=== PATIENT | male | born 1940 | race Two or more races ===

== ENCOUNTER 2023-06-14 08:57 | Outpatient (AMB) | payer MEDICARE, SELFPAY ==
--- NOTE | 2023-06-14 09:08 | MHC.OFFVISCO ---
Intake Vital Signs 06/14/23 12:08 BP 124/52 L Blood Pressure Location Lt brachial Position Sitting Pulse 72 Pulse Source Auscultation Intake Visit Reasons: Anticoagulation Allergies isosorbide Allergy (Unknown, Verified 01/19/20 00:00) dizziness No Known Allergies [No Known Allergies*] Allergy (Unverified 06/06/20 15:25) Medication List - Last Reconciled 06/14/23 by Aster Gates RN atorvastatin 40 mg PO DAILY carvedilol 12.5 mg PO BID 90 days glipizide 10 mg PO BID metformin 1,000 mg PO BID 90 days Nursing Note NEW PT: A+O X 3, VERY FRIENDLY, APPEARS MUCH YOUNGER THAN HIS AGE, HE IS VERY ACTIVE WORKS OUT SIDE AND EXERCISES, HX OF DIABETES SINCE AGE 50 - HIS ENTIRE FAMILY HAS DIABETES, HE DOES NOT WATCH HIS DIET WHICH UPSETS HIS DAUGHTER WHO IS MAKEUP ARTISTRY INSTRUCTOR OF SOME SORT, RESP EASY UNLABORED, HR REGULAR 72 B/P 124/52 hx of being on warfarin 4 years ago for his hx of DE x 4,cabg, and Afib, he has been on Eliquis but stop due to cost, he started warfarin with bridge with Eliquis Wednesday and Wednesday, stopped Eliquis Wednesday. INR: 1.5 out of therapeutic range Medications and supplements reviewed- he does not take any supplements or any pain medications Denies any signs and symptoms of bleeding or bruising or clotting. Bleeding, bruising, clotting discussed He DOES NOT LIKE TO COOK AND DOES NOT ANY ANY FRUITS OR VEGETABLES EXCEPT: PLANTAINS, GREEN BANANAS, WHITE POTATES, WHITE RICE, BREAD, OATMEAL WITH CINNAMON,BEANS OF ALL KINDS, VERY LITTLE MEAT, CORN, OCC HOT CHOCOLATE, 1 SUGAR FREE SODA PER DAY, Nutritional guidance given - CONT USUAL DIET Dose: 5MG X 6 DAYS/ 2.5MG X 1 DAY F/U INR: 06/18/23 Patient verbalizes understanding of instructions given WILL NOTIFY CARDIOLOGY WITH RESULT AND PLAN OF CARE Anti-Coag Initial Assessment Social Hx Patient Tobacco Use Status: Never used Tobacco alcohol intake: former Alcohol intake frequency: does not drink Housing: House Housing Other:: [employer] HELPS HIM - MARK current occupation: RETIRED 20 YEARS current occupational exposures/hazards: No Fall risk assessment: No Falls in past year Cardiovascular Hx: HTN, Angina (NON CURRENT BUT DID WITH 4 HEART ATTACKS ), [place] (51 YEARS OLD, SEVERAL HEART ATTACKS, ), Arrhythmias (AFIB STARTED WARFARIN 4 YEARS AGO, WAS ON ELIQUIS BUT STOP DUE TO COST ), Cardiomyopathy and Other (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 Illness/Depression: Yes Surgeries: WAS TREATED IN THE PAST FOR DEPRESSION STATES HE HAD A HARD LIFE BUT HE IS GOOD NOW l HAVE A GOOD LIFE Anti-Coag. Education Record Teaching Recipient: Patient Readiness To Learn: Excellent Teaching Methods: Discussion and Handout Education Intervention/Brief Description of Teaching 1. Able to state reason for taking Warfarin: Yes 2. Able to state Pain Management techniques: Yes 3. Able to state action of Warfarin.: Yes Able to state current dose, pill color, how and when Warfarin to be taken: Yes 4. Able to identify need to keep diet consistent in regard to vitamin K intake: Yes Able to state restriction on alcohol: Yes 5. Able to state need for compliance with PT/INR testing: Yes Describes rationale for carrying ID and wearing Medic Alert bracelet: Yes Patient instructed to monitor for excess bruising or signs/symptoms of clotting or bleeding: Yes 6. Able to state that there are drugs that interact with Warfin: Yes 7. Able to state the need to seek medical attention when illness/injury occur.: Yes Describes the need to avoid activities with high risk of injury: Yes 8. Able to state duration of treatment: Yes 9. Demonstrates understanding of notifying all providers of pending dental surgical, or other invasive procedures: Yes 10. Able to state Home Care instructions Additional comments: pt was on warfarin about 4 years ago then switched to Eliquis, he switched back to warfarin due to cost, he is alert and oriented and fully independent, does not cook much, mostly white rice, potates, plantines, green bananas, oatmeal with cinnamon, bread, very little meat, all kinds of beans, does not like to cook, will no change his habits, daughter is a cafeteria attendant and he will not follow her dietary suggestins. Questionnaires HAS-BLED Does the patient had uncontrolled Hypertension?: No Does the patient have renal disease?: Yes Does the patient have liver disease?: No Does the patient have a history of stroke?: No Has the patient had major bleeding or predisposition to bleeding?: No Does the patient have labile INRs?: Yes Is the patient over 65 years of age?: Yes Is the patient on medications that gives them a predisposition to bleeding?: Yes Does the patient use alcohol?: No HAS-BLED Score: 4 CHADSVASC Age: 75 or over Gender: Male Does the patient have a history of CHF?: No Does the patient have a history of Hypertension?: Yes Does the patient have a history of Stroke/TIA/Thromboembolism?: No Does the patient have a history of Vascular Disease (prior DE, PAD or aortic plaque)?: Yes (MIX4 , CABGM, AFIB ) Does the patient have a history of Diabetes?: Yes CHADS VACS Score: 5 Marci Prediction Score Rsk VTE Active Cancer: No Previous VTE, excluding superficial vein thrombosis: No Reduced mobility: No Already known Thrombophilic Condition: Yes With-in last month Trauma and/or Surgery: No Elderly 70 year or older: Yes Heart and/or Respiratory Failure: Yes Acute Myocardial infarction and/or Ischemic Stroke: Yes (DE X 4 ) Acute Infection and/or Rheumatologic Disorder: No Obesity (BMI 30 or greater): No Ongoing Hormonal Treatment: No Score: 6 Marci Score less than 4; Low Risk of VTE Marci Score 4 or greater; High Risk of VTE Coding Level of Care Code New Patient Level 2 Diagnoses Current use of anticoagulant therapy Z79.01 Time Spent (min) 70 Comment NEW PT Assessment & Plan Assessment & Plan (1) Current use of anticoagulant therapy: Code(s): 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
[2023-06-14 09:14] LABS: Prothrombin Time Whole Bld POC 18.4 sec (11.1-13.5); ~PT, ~INR - Anti Coag Clinic 1.5 (0.9-1.1)
[2023-06-14 12:08] VITALS: BP 124/52; PULSE 72
== END 2023-06-14 12:24 | disposition home or self-care (01) ==
LOC: HO.ACS 08:57
PROVIDERS: PCP Internal Medicine; Visit Provider Internal Medicine
DX: Z79.01 Long term (current) use of anticoagulants (principal)

== ENCOUNTER → 2023-06-14 08:57 | Outpatient (BNVA) | payer MEDICARE, SELFPAY | PROVIDERS: PCP Internal Medicine; Visit Provider Internal Medicine | DX: I48.0 Paroxysmal atrial fibrillation (principal); Z79.01 Long term (current) use of anticoagulants; Z51.81 Encounter for therapeutic drug level monitoring | CPT/HCPCS: 85610; 99202 ==

== ENCOUNTER 2023-06-18 09:18 | Outpatient (AMB) | payer MEDICARE, SELFPAY ==
[2023-06-18 09:44] LABS: Prothrombin Time Whole Bld POC 25.4 sec (11.1-13.5); ~PT, ~INR - Anti Coag Clinic 2.1 (0.9-1.1)
--- NOTE | 2023-06-18 09:50 | MHC.OFFVISCO ---
Intake Intake Visit Reasons: Anticoagulation Allergies isosorbide Allergy (Unknown, Verified 06/18/23 09:37) dizziness Medication List - Last Reconciled 06/18/23 by Sherie Khan RN aspirin (Adult Aspirin Regimen) 81 mg PO DAILY atorvastatin 40 mg PO DAILY carvedilol 12.5 mg PO BID 90 days glipizide 10 mg PO BID lisinopril 10 mg PO DAILY metformin 1,000 mg PO BID 90 days warfarin See Protocol 5 mg orally OR PER INR; Nursing Note Amb to ACS for ACS visit #2, feeling well Medications and supplements reviewed, sts I only take what my Dr tells me No changes in health, diet, medications, or supplements, off Eloquis since Wednesday Denies any unusual signs and symptoms of bruising, bleeding Denies any new Chest pain, SOB, or clotting INR: 2.1 now low in therapeutic range Nutritional guidance given: continue usual diet, sts he had some corn and beets last night and some avacado, sts he occassionally will cook chicken or a pork chop but mostly simple diet, I don't really know how to cook encouraged consistency in diet Dose: continue usual dosing;will take 5mg daily, is taking warfarin in the am at 8:30 in the morning encouraged to not take his warfarin Wednesday morning and can take after we check INR (for possible 2.5mg dose vs 5mg) F/U INR: Wednesday June 21, 930 Patient verbalizes understanding of instructions given with accurate read back/ teach back of dosing Anti-Coag Initial Assessment Social Hx Patient Tobacco Use Status: Never used Tobacco alcohol intake: former Alcohol intake frequency: does not drink Cardiovascular Hx: HTN, Angina (NON CURRENT BUT DID WITH 4 HEART ATTACKS ), [place] (51 YEARS OLD, SEVERAL HEART ATTACKS, ), Arrhythmias (AFIB STARTED WARFARIN 4 YEARS AGO, WAS ON ELIQUIS BUT STOP DUE TO COST ), Cardiomyopathy and Other (DEFRIBRILLATOR PACEMAKER [address] 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 Illness/Depression: Yes Coding Level of Care Code Est Patient Level 1 Diagnoses Current use of anticoagulant therapy Z79.01 Time Spent (min) 15 Assessment & Plan Assessment & Plan (1) Current use of anticoagulant therapy: Code(s): Z79.01 - intermediate (current) use of anticoagulants Category: Medical
== END 2023-06-18 10:04 | disposition home or self-care (01) ==
PROVIDERS: PCP Internal Medicine; Visit Provider Internal Medicine
DX: Z79.01 Long term (current) use of anticoagulants (principal)

== ENCOUNTER → 2023-06-18 09:18 | Outpatient (BNVA) | payer MEDICARE, SELFPAY | PROVIDERS: PCP Internal Medicine; Visit Provider Internal Medicine | DX: I48.0 Paroxysmal atrial fibrillation (principal); Z79.01 Long term (current) use of anticoagulants; Z51.81 Encounter for therapeutic drug level monitoring | CPT/HCPCS: 85610; 99211 ==

== ENCOUNTER 2023-06-21 09:27 | Outpatient (AMB) | payer MEDICARE, SELFPAY ==
--- NOTE | 2023-06-21 09:34 | MHC.OFFVISCO ---
Intake Intake Visit Reasons: Anticoagulation Allergies isosorbide Allergy (Unknown, Verified 06/21/23 09:29) dizziness Medication List - Last Reconciled 06/21/23 by Sonya Tobar RN aspirin (Adult Aspirin Regimen) 81 mg PO DAILY atorvastatin 40 mg PO DAILY carvedilol 12.5 mg PO BID 90 days glipizide 10 mg PO BID lisinopril 10 mg PO DAILY metformin 1,000 mg PO BID 90 days warfarin See Protocol 5 mg orally OR PER INR; Nursing Note INR: 2.4- in therapeutic range Medications and supplements reviewed- no changes No changes in health, diet, medications, or supplements, Denies any signs and symptoms of bleeding or bruising or clotting. Bleeding, bruising, clotting discussed Nutritional guidance given - balance- Dose: 5mg x 6, 2.5mg x 1 F/U INR: 4 days Patient verbalizes understanding of instructions given j pt takes warfarin in the am and has been instructed to not take prior to acs appt Anti-Coag Initial Assessment Social Hx Patient Tobacco Use Status: Never used Tobacco alcohol intake: former Alcohol intake frequency: does not drink Cardiovascular Hx: HTN, Angina (NON CURRENT BUT DID WITH 4 HEART ATTACKS ), [place] (51 YEARS OLD, SEVERAL HEART ATTACKS, ), Arrhythmias (AFIB STARTED WARFARIN 4 YEARS AGO, WAS ON ELIQUIS BUT STOP DUE TO COST ), Cardiomyopathy and Other (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
[2023-06-21 09:35] LABS: Prothrombin Time Whole Bld POC 28.4 sec (11.1-13.5); ~PT, ~INR - Anti Coag Clinic 2.4 (0.9-1.1)
== END 2023-06-21 09:42 | disposition home or self-care (01) ==
LOC: HO.ACS 09:27
PROVIDERS: PCP Internal Medicine; Visit Provider Internal Medicine
DX: Z79.01 Long term (current) use of anticoagulants (principal)

== ENCOUNTER → 2023-06-21 09:27 | Outpatient (BNVA) | payer MEDICARE, SELFPAY | PROVIDERS: PCP Internal Medicine; Visit Provider Internal Medicine | DX: I48.0 Paroxysmal atrial fibrillation (principal); Z51.81 Encounter for therapeutic drug level monitoring; Z79.01 Long term (current) use of anticoagulants | CPT/HCPCS: 85610; 99211 ==

== ENCOUNTER 2023-06-25 09:31 | Outpatient (AMB) | payer MEDICARE, SELFPAY ==
--- NOTE | 2023-06-25 10:06 | MHC.OFFVISCO ---
Intake Intake Visit Reasons: Anticoagulation Allergies isosorbide Allergy (Unknown, Verified 06/25/23 09:56) dizziness Medication List - Last Reconciled 06/25/23 by Sherie Khan RN aspirin (Adult Aspirin Regimen) 81 mg PO DAILY atorvastatin 40 mg PO DAILY carvedilol 12.5 mg PO BID 90 days glipizide 10 mg PO BID lisinopril 10 mg PO DAILY metformin 1,000 mg PO BID 90 days warfarin See Protocol 5 mg orally OR PER INR; Nursing Note Amb to ACS feeling well, visit #4 Medications and supplements reviewed No changes in health, diet, medications, or supplements Denies any unusual signs and symptoms of bruising, bleeding Denies any new Chest pain, SOB, or clotting INR: 2.1 low in therapeutic range Nutritional guidance given: balance greens and reds in diet Dose: continue dosing;2.5mg on Wednesday and 5mg all other days F/U INR: 6 days Patient verbalizes understanding of instructions given with accurate read back/ teach back of dosing Anti-Coag Initial Assessment Social Hx Patient Tobacco Use Status: Never used Tobacco alcohol intake: former Alcohol intake frequency: does not drink Cardiovascular Hx: HTN, Angina (NON CURRENT BUT DID WITH 4 HEART ATTACKS ), [place] (51 YEARS OLD, SEVERAL HEART ATTACKS, ), Arrhythmias (AFIB STARTED WARFARIN 4 YEARS AGO, WAS ON ELIQUIS BUT STOP DUE TO COST ), Cardiomyopathy and Other (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
== END 2023-06-25 10:09 | disposition home or self-care (01) ==
LOC: HO.ACS 09:31
PROVIDERS: PCP Internal Medicine; Visit Provider Internal Medicine
DX: Z79.01 Long term (current) use of anticoagulants (principal)

== ENCOUNTER → 2023-06-25 09:31 | Outpatient (BNVA) | payer MEDICARE, SELFPAY | PROVIDERS: PCP Internal Medicine; Visit Provider Internal Medicine | DX: I48.0 Paroxysmal atrial fibrillation (principal); Z79.01 Long term (current) use of anticoagulants; Z51.81 Encounter for therapeutic drug level monitoring | CPT/HCPCS: 85610; 99211 ==

== ENCOUNTER 2023-07-01 09:32 | Outpatient (AMB) | payer MEDICARE, SELFPAY ==
--- NOTE | 2023-07-01 10:01 | MHC.OFFVISCO ---
Intake Intake Visit Reasons: Anticoagulation Allergies isosorbide Allergy (Unknown, Verified 07/01/23 09:46) dizziness Medication List - Last Reconciled 07/01/23 by Aster Gates RN aspirin (Adult Aspirin Regimen) 81 mg PO DAILY atorvastatin 40 mg PO DAILY carvedilol 12.5 mg PO BID 90 days glipizide 10 mg PO BID lisinopril 10 mg PO DAILY metformin 1,000 mg PO BID 90 days warfarin See Protocol 5 mg orally OR PER INR; Nursing Note INR: 2.1 in therapeutic range Medications and supplements reviewed pt states he feels good, walks 4 miles daily, does not chk his blood sugar, eats a diet from [place] , does not know how to cook, eats a lot of starch but is very active, states daughter a investigations consultant, he was advised to chk his blood sugars, he states when his blood sugar is 100 he does not feel good, he feels better at 150 Denies any signs and symptoms of bleeding or bruising or clotting. Bleeding, bruising, clotting discussed Nutritional guidance given cotn same diet and usual exercise Dose: keep same for now 2.5mg x 1 day/ 5mg x 6 days F/U INR: 1 week if therapeutic next wee go 2 weeks Patient verbalizes understanding of instructions given Anti-Coag Initial Assessment Social Hx Patient Tobacco Use Status: Never used Tobacco alcohol intake: former Alcohol intake frequency: does not drink Cardiovascular Hx: HTN, Angina (NON CURRENT BUT DID WITH 4 HEART ATTACKS ), [place] (51 YEARS OLD, SEVERAL HEART ATTACKS, ), Arrhythmias (AFIB STARTED WARFARIN 4 YEARS AGO, WAS ON ELIQUIS BUT STOP DUE TO COST ), Cardiomyopathy and Other (DEFRIBRILLATOR PACEMAKER [address] 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
[2023-07-01 10:19] LABS: Prothrombin Time Whole Bld POC 25.1 sec (11.1-13.5); ~PT, ~INR - Anti Coag Clinic 2.1 (0.9-1.1)
== END 2023-07-01 10:06 | disposition home or self-care (01) ==
LOC: HO.ACS 09:32
PROVIDERS: PCP Internal Medicine; Visit Provider Internal Medicine
DX: Z79.01 Long term (current) use of anticoagulants (principal)

== ENCOUNTER → 2023-07-01 09:32 | Outpatient (BNVA) | payer MEDICARE, SELFPAY | PROVIDERS: PCP Internal Medicine; Visit Provider Internal Medicine | DX: I48.0 Paroxysmal atrial fibrillation (principal); Z79.01 Long term (current) use of anticoagulants; Z51.81 Encounter for therapeutic drug level monitoring | CPT/HCPCS: 85610; 99211 ==

== ENCOUNTER 2023-07-08 09:24 | Outpatient (AMB) | payer MEDICARE, SELFPAY ==
[2023-07-08 09:32] LABS: Prothrombin Time Whole Bld POC 17.9 sec (11.1-13.5); ~PT, ~INR - Anti Coag Clinic 1.5 (0.9-1.1)
--- NOTE | 2023-07-08 09:51 | MHC.OFFVISCO ---
Intake Intake Visit Reasons: Anticoagulation Allergies isosorbide Allergy (Unknown, Verified 07/08/23 09:27) dizziness Medication List - Last Reconciled 07/08/23 by Aster Gates RN aspirin (Adult Aspirin Regimen) 81 mg PO DAILY atorvastatin 40 mg PO DAILY carvedilol 12.5 mg PO BID 90 days glipizide 10 mg PO BID lisinopril 10 mg PO DAILY metformin 1,000 mg PO BID warfarin See Protocol 5 mg orally OR PER INR; Nursing Note INR ?1.5? out of therapeutic range Medications and supplements reviewed Patient status: states he is eating more food because its cold out, and had more hot chocolate ( increasing foods increases vit k ) that was explained to him, to keep eating and his dose willbe andjusted to his diet Medications or supplements: no changes Diet: good - follows a spaish type diet does not cook much, family brings food occ, Denies any signs and symptoms of bleeding or clotting or unusual bruising Bleeding, bruising, clotting discussed Nutritional guidance given: no chocolate or greens x 3 days Dose: increase dose 7.5mg today then 5mg daily F/U INR Date: 5 days 07/13/23 to go to ER for any c/o or stroke like symptoms Patient verbalizing understanding of instructions given. t/c to Cardiology regarding pt status INR and plan of care spoke with nurse Dunaway to convey msg to Cardiology Anti-Coag Initial Assessment Social Hx Patient Tobacco Use Status: Never used Tobacco alcohol intake: former Alcohol intake frequency: does not drink Cardiovascular Hx: HTN, Angina (NON CURRENT BUT DID WITH 4 HEART ATTACKS ), [place] (51 YEARS OLD, SEVERAL HEART ATTACKS, ), Arrhythmias (AFIB STARTED WARFARIN 4 YEARS AGO, WAS ON ELIQUIS BUT STOP DUE TO COST ), Cardiomyopathy and Other (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
== END 2023-07-08 10:10 | disposition home or self-care (01) ==
LOC: HO.ACS 09:24
PROVIDERS: PCP Internal Medicine; Visit Provider Internal Medicine
DX: Z79.01 Long term (current) use of anticoagulants (principal)

== ENCOUNTER → 2023-07-08 09:24 | Outpatient (BNVA) | payer MEDICARE, SELFPAY | PROVIDERS: PCP Internal Medicine; Visit Provider Internal Medicine | DX: I48.0 Paroxysmal atrial fibrillation (principal); Z79.01 Long term (current) use of anticoagulants; Z51.81 Encounter for therapeutic drug level monitoring | CPT/HCPCS: 85610; 99211 ==

== ENCOUNTER 2023-07-13 08:45 | Outpatient (AMB) | payer MEDICARE, SELFPAY ==
--- NOTE | 2023-07-13 08:56 | MHC.OFFVISCO ---
Intake Intake Visit Reasons: Anticoagulation Allergies isosorbide Allergy (Unknown, Verified 07/13/23 08:53) dizziness Medication List - Last Reconciled 07/13/23 by Sonya Tobar RN aspirin (Adult Aspirin Regimen) 81 mg PO DAILY atorvastatin 40 mg PO DAILY carvedilol 12.5 mg PO BID 90 days glipizide 10 mg PO BID lisinopril 10 mg PO DAILY metformin 1,000 mg PO BID warfarin See Protocol 5 mg orally OR PER INR; Nursing Note INR 1.8- out of therapeutic range Medications and supplements reviewed Patient status: no c.o offered Medications or supplements: no changes Diet: same Denies any signs and symptoms of bleeding or clotting or unusual bruising Bleeding, bruising, clotting discussed Nutritional guidance given: no greens for 2-3 days, eat reds to raise Dose: 7.5mg today increase weekly dosing- 5mg x 6, 7.5mg x 1 F/U INR Date : 1 week? Patient verbalizing understanding of instructions given. Anti-Coag Initial Assessment Social Hx Patient Tobacco Use Status: Never used Tobacco alcohol intake: former Alcohol intake frequency: does not drink Cardiovascular Hx: HTN, Angina (NON CURRENT BUT DID WITH 4 HEART ATTACKS ), [place] (51 YEARS OLD, SEVERAL HEART ATTACKS, ), Arrhythmias (AFIB STARTED WARFARIN 4 YEARS AGO, WAS ON ELIQUIS BUT STOP DUE TO COST ), Cardiomyopathy and Other (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 Illness/Depression: Yes Coding Level of Care Code Est Patient Level 1 Diagnoses Current use of anticoagulant therapy Z79.01 Assessment & Plan Assessment & Plan (1) Current use of anticoagulant therapy: Code(s): Z79.01 - FPC (current) use of anticoagulants Category: Medical
[2023-07-13 08:58] LABS: Prothrombin Time Whole Bld POC 21.4 sec (11.1-13.5); ~PT, ~INR - Anti Coag Clinic 1.8 (0.9-1.1)
== END 2023-07-13 09:05 | disposition home or self-care (01) ==
LOC: HO.ACS 08:45
PROVIDERS: PCP Internal Medicine; Visit Provider Internal Medicine
DX: Z79.01 Long term (current) use of anticoagulants (principal)

== ENCOUNTER → 2023-07-13 08:45 | Outpatient (BNVA) | payer MEDICARE, SELFPAY | PROVIDERS: PCP Internal Medicine; Visit Provider Internal Medicine | DX: I48.0 Paroxysmal atrial fibrillation (principal); Z79.01 Long term (current) use of anticoagulants; Z51.81 Encounter for therapeutic drug level monitoring | CPT/HCPCS: 85610; 99211 ==

== ENCOUNTER 2023-07-19 08:57 | Outpatient (AMB) | payer MEDICARE, SELFPAY ==
[2023-07-19 09:02] LABS: Prothrombin Time Whole Bld POC 22.6 sec (11.1-13.5); ~PT, ~INR - Anti Coag Clinic 1.9 (0.9-1.1)
--- NOTE | 2023-07-19 09:08 | MHC.OFFVISCO ---
Intake Intake Visit Reasons: Anticoagulation Allergies isosorbide Allergy (Unknown, Verified 07/19/23 08:58) dizziness Medication List - Last Reconciled 07/19/23 by Aster Gates RN aspirin (Adult Aspirin Regimen) 81 mg PO DAILY atorvastatin 40 mg PO DAILY carvedilol 12.5 mg PO BID 90 days glipizide 10 mg PO BID lisinopril 10 mg PO DAILY metformin 1,000 mg PO BID warfarin See Protocol 5 mg orally OR PER INR; Nursing Note INR: 1.9 in therapeutic range- HAS NOT TAKEN TODAY'S DOSE SUDHA Medications and supplements reviewed No changes in health, diet, medications, or supplements, Denies any signs and symptoms of bleeding or bruising or clotting. Bleeding, bruising, clotting discussed Nutritional guidance given Dose: 7.5MG X 1 5MG X 6 DAYS F/U INR: 1 WEEK - IF LOW INCREASE 7.5MG X 2 DAYS Patient verbalizes understanding of instructions given Anti-Coag Initial Assessment Social Hx Patient Tobacco Use Status: Never used Tobacco alcohol intake: former Alcohol intake frequency: does not drink Cardiovascular Hx: HTN, Angina (NON CURRENT BUT DID WITH 4 HEART ATTACKS ), [place] (51 YEARS OLD, SEVERAL HEART ATTACKS, ), Arrhythmias (AFIB STARTED WARFARIN 4 YEARS AGO, WAS ON ELIQUIS BUT STOP DUE TO COST ), Cardiomyopathy and Other (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
== END 2023-07-19 09:14 | disposition home or self-care (01) ==
LOC: HO.ACS 08:57
PROVIDERS: PCP Internal Medicine; Visit Provider Internal Medicine
DX: Z79.01 Long term (current) use of anticoagulants (principal)

== ENCOUNTER → 2023-07-19 08:57 | Outpatient (BNVA) | payer MEDICARE, SELFPAY | PROVIDERS: PCP Internal Medicine; Visit Provider Internal Medicine | DX: I48.0 Paroxysmal atrial fibrillation (principal); Z79.01 Long term (current) use of anticoagulants; Z51.81 Encounter for therapeutic drug level monitoring | CPT/HCPCS: 85610; 99211 ==

== ENCOUNTER 2023-07-26 09:39 | Outpatient (AMB) | payer MEDICARE, SELFPAY ==
--- NOTE | 2023-07-26 10:04 | MHC.OFFVISCO ---
Intake Intake Visit Reasons: Anticoagulation Allergies isosorbide Allergy (Unknown, Verified 07/26/23 09:50) dizziness Medication List - Last Reconciled 07/26/23 by Aster Gates RN aspirin (Adult Aspirin Regimen) 81 mg PO DAILY atorvastatin 40 mg PO DAILY carvedilol 12.5 mg PO BID 90 days glipizide 10 mg PO BID lisinopril 10 mg PO DAILY metformin 1,000 mg PO BID warfarin See Protocol 5 mg orally OR PER INR; Nursing Note INR 1.6?? out of therapeutic range Medications and supplements reviewed Patient status: VERY ACTIVE OVER THE WEEKEND DOING YARD WORK AND HOUSE WORK Medications or supplements: NO CHANGES, IN THE BEGINNIG HE HAD BEEN ON ELIQUIS -PERHAPS THAT IS WHY HI INR WAS THERAPEUTIC IN THE BEGINNING SO QUICKLY THEN DROPPED Diet: GOOD NO CHANGES, EATS MORE DURING THE COLDER MONTHS Denies any signs and symptoms of bleeding or clotting or unusual bruising Bleeding, bruising, clotting discussed Nutritional guidance given: REVIEW FOOD LIST, NO GREENS TODAY ( DOESNT REALLY EAT THEM ANY WAY) Dose: INCREASE TO 7.5MG X 3 DAYS/ 5MG X 4 DAYS F/U INR Date : 07/30/23 THIS WEDNESDAY?? Patient verbalizing understanding of instructions given. Anti-Coag Initial Assessment Social Hx Patient Tobacco Use Status: Never used Tobacco alcohol intake: former Alcohol intake frequency: does not drink Cardiovascular Hx: HTN, Angina (NON CURRENT BUT DID WITH 4 HEART ATTACKS ), [place] (51 YEARS OLD, SEVERAL HEART ATTACKS, ), Arrhythmias (AFIB STARTED WARFARIN 4 YEARS AGO, WAS ON ELIQUIS BUT STOP DUE TO COST ), Cardiomyopathy and Other (DEFRIBRILLATOR PACEMAKER [address] 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
[2023-07-26 20:37] LABS: Prothrombin Time Whole Bld POC 19.7 sec (11.1-13.5); ~PT, ~INR - Anti Coag Clinic 1.6 (0.9-1.1)
== END 2023-07-26 10:09 | disposition home or self-care (01) ==
LOC: HO.ACS 09:39
PROVIDERS: PCP Internal Medicine; Visit Provider Internal Medicine
DX: Z79.01 Long term (current) use of anticoagulants (principal)

== ENCOUNTER → 2023-07-26 09:39 | Outpatient (BNVA) | payer MEDICARE, SELFPAY | PROVIDERS: PCP Internal Medicine; Visit Provider Internal Medicine | DX: I48.0 Paroxysmal atrial fibrillation (principal); Z79.01 Long term (current) use of anticoagulants; Z51.81 Encounter for therapeutic drug level monitoring | CPT/HCPCS: 85610; 99211 ==

== ENCOUNTER 2023-07-30 09:17 | Outpatient (AMB) | payer MEDICARE, SELFPAY ==
[2023-07-30 09:36] LABS: Prothrombin Time Whole Bld POC 23.8 sec (11.1-13.5)
--- NOTE | 2023-07-30 09:38 | MHC.OFFVISCO ---
Intake Intake Visit Reasons: Anticoagulation Allergies isosorbide Allergy (Unknown, Verified 07/30/23 09:25) dizziness Medication List - Last Reconciled 07/30/23 by Aster Gates RN aspirin (Adult Aspirin Regimen) 81 mg PO DAILY atorvastatin 40 mg PO DAILY carvedilol 12.5 mg PO BID 90 days glipizide 10 mg PO BID lisinopril 10 mg PO DAILY metformin 1,000 mg PO BID warfarin See Protocol 5 mg orally OR PER INR; Nursing Note INR: 2.0 in therapeutic range Medications and supplements reviewed No changes in health, diet, medications, or supplements, Denies any signs and symptoms of bleeding or bruising or clotting. Bleeding, bruising, clotting discussed Nutritional guidance given Dose: 7.5MG X 3 DAYS/ 5MG X 4 DAYS F/U INR: 1 WEEK Patient verbalizes understanding of instructions given Anti-Coag Initial Assessment Social Hx Patient Tobacco Use Status: Never used Tobacco alcohol intake: former Alcohol intake frequency: does not drink Cardiovascular Hx: HTN, Angina (NON CURRENT BUT DID WITH 4 HEART ATTACKS ), [place] (51 YEARS OLD, SEVERAL HEART ATTACKS, ), Arrhythmias (AFIB STARTED WARFARIN 4 YEARS AGO, WAS ON ELIQUIS BUT STOP DUE TO COST ), Cardiomyopathy and Other (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
== END 2023-07-30 09:41 | disposition home or self-care (01) ==
LOC: HO.ACS 09:17
PROVIDERS: PCP Internal Medicine; Visit Provider Internal Medicine
DX: Z79.01 Long term (current) use of anticoagulants (principal)

== ENCOUNTER → 2023-07-30 09:17 | Outpatient (BNVA) | payer MEDICARE, SELFPAY | PROVIDERS: PCP Internal Medicine; Visit Provider Internal Medicine | DX: I48.0 Paroxysmal atrial fibrillation (principal); Z79.01 Long term (current) use of anticoagulants; Z51.81 Encounter for therapeutic drug level monitoring | CPT/HCPCS: 85610; 99211 ==

== ENCOUNTER 2023-08-06 09:26 | Outpatient (AMB) | payer MEDICARE, SELFPAY ==
[2023-08-06 10:29] LABS: Prothrombin Time Whole Bld POC 27.8 sec (11.1-13.5); ~PT, ~INR - Anti Coag Clinic 2.3 (0.9-1.1)
--- NOTE | 2023-08-06 11:32 | MHC.OFFVISCO ---
Intake Intake Visit Reasons: Anticoagulation Allergies isosorbide Allergy (Unknown, Verified 08/06/23 10:14) dizziness Medication List - Last Reconciled 08/06/23 by Aster Gates RN aspirin (Adult Aspirin Regimen) 81 mg PO DAILY atorvastatin 40 mg PO DAILY carvedilol 12.5 mg PO BID 90 days glipizide 10 mg PO BID lisinopril 10 mg PO DAILY metformin 1,000 mg PO BID warfarin See Protocol 5 mg orally OR PER INR; Nursing Note INR: 2.3 in therapeutic range Medications and supplements reviewed pt stated last wednesday went for walk, usually walks 3 miles / day, he developed c/p with pressure and went home to bed, it has persisted since then pressure discomfort 5/10 and pain 8/10 pain scale intermittent midsternal c/p and pressure today pressure is staying with intermittent c/p pt states his heart does not feel right, HR 60 with occ pause and afib b/p 140/60 irregular pt brought to ER report given to triage Nurse Rosemary and assigned nurse for Bed 5 pt requested daughter to not be called at this time Bleeding, bruising, clotting discussed Nutritional guidance given Dose: keep same for now 7.5mg x 3 days/ 5mg x 4 days F/U INR: 10 days call with any med changes Patient verbalizes understanding of instructions given Anti-Coag Initial Assessment Social Hx Patient Tobacco Use Status: Never used Tobacco alcohol intake: former Alcohol intake frequency: does not drink Cardiovascular Hx: HTN, Angina (NON CURRENT BUT DID WITH 4 HEART ATTACKS ), [place] (51 YEARS OLD, SEVERAL HEART ATTACKS, ), Arrhythmias (AFIB STARTED WARFARIN 4 YEARS AGO, WAS ON ELIQUIS BUT STOP DUE TO COST ), Cardiomyopathy and Other (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 Illness/Depression: Yes Coding Level of Care Code Est Patient Level 1 Diagnoses Current use of anticoagulant therapy Z79.01 Results AMB INR Fingerstick AMB INR Fingerstick 2.3 Last Edit by Aster Gates RN on 08/06/23 09:39 MANUAL ENTRY Assessment & Plan Assessment & Plan (1) Current use of anticoagulant therapy: Code(s): Z79.01 - jail (current) use of anticoagulants Category: Medical
== END 2023-08-06 11:41 | disposition home or self-care (01) ==
LOC: HO.ACS 09:26
PROVIDERS: PCP Internal Medicine; Visit Provider Internal Medicine
DX: Z79.01 Long term (current) use of anticoagulants (principal)

== ENCOUNTER → 2023-08-06 09:26 | Outpatient (BNVA) | payer MEDICARE, SELFPAY | PROVIDERS: PCP Internal Medicine; Visit Provider Internal Medicine ==

== ENCOUNTER 2023-08-06 10:00 | Emergency (ER) | payer MEDICARE, SELFPAY ==
--- NOTE | ~2023-08-06 | XR_ITS ---
EXAMINATION: XR CHEST CLINICAL INFORMATION: Chest pain. COMPARISON: Most recent chest radiograph dated 10/09/2019. TECHNIQUE: Frontal view of the chest was obtained. FINDINGS: No focal airspace consolidation. No pleural effusion or pneumothorax. Sternal wires are redemonstrated. Right chest wall pacer/automated implantable cardioverter defibrillator in unchanged position. Stable cardiomediastinal silhouette. XR/XR chest 1V IMPRESSION: No acute cardiopulmonary findings.
[2023-08-06 10:08] VITALS: BP 156/83; PULSE 61; RESP 12; TEMP 36.6; O2SAT 99; BMI 23.9
--- NOTE | 2023-08-06 10:16 | ECG_ITS ---
Test Reason : CHEST PAIN Blood Pressure : / mmHG Vent. Rate : 060 BPM Atrial Rate : 060 BPM P-R Int : 000 ms QRS Dur : 100 ms QT Int : 448 ms P-R-T Axes : 000 009 178 degrees QTc Int : 448 ms Atrial-paced rhythm with occasional ventricular-paced complexes ST & T wave abnormality, consider lateral ischemia Abnormal ECG When compared with ECG of 09-OCT-2019 19:55, with occasional Ventricular-paced rhythm Referred By: Yuki Power Electronically Signed By:COLT MEDEL MD
[2023-08-06 10:36] LABS: MANUAL DIFF FLAG NO
[2023-08-06 10:38] LABS: Basophils Percent Auto 0.4 % (0-2); Eosinophils Absolute Auto 0.1 X10*3/uL (0.0-0.4); Eosinophils Percent Auto 1.7 % (0-4); Hematocrit 32.7 % (42.0-52.0); Hemoglobin 10.5 g/dl (14.0-18.0); Imm Gran Abs Auto 0.01 X10*3/uL (0.00-0.03); Imm Gran Pct Auto 0.2 % (0.0-0.4); Lymphocytes Percent Auto 20.9 % (20-40); Mean Corpuscular HGB Conc 32.1 g/dl (31.0-36.0); Mean Corpuscular Hemoglobin 28.1 pg (27.0-33.0); Mean Corpuscular Volume 87.4 fL (80.0-98.0); Mean Platelet Volume 9.5 fL (9.4-12.4); Monocytes Absolute Auto 0.5 X10*3/uL (0.1-1.2); Monocytes Percent Auto 10.9 % (2-11); Neutrophils Absolute Auto 3.1 x10*3/uL (2.0-8.3); Neutrophils Percent Auto 65.9 % (45-73); Platelet Count 199 X10*3/uL (160-400); Red Blood Count 3.74 X10*6/uL (4.60-5.80); Red Cell Distribution Width 13.2 % (11.0-16.0); White Blood Count 4.7 X10*3/uL (4.8-10.8)
[2023-08-06 10:43] LABS: INTERNATIONAL NORM RATIO 2.5 (0.9-1.1)
--- NOTE | 2023-08-06 10:48 | ED_ITS ---
HPI - Chest Pain General Chief Complaint: Chest Pain Stated Complaint: chest pressure pain Time Seen by Provider: 08/06/23 10:09 Source: patient and old records reviewed Mode of arrival: ambulatory Limitations: no limitations History of Present Illness HPI narrative: 82 yo male with PMH of CHF s/p AICD, PAF on coumadin, HTN, HLD, DM, CAD s/p CABG in 2008 with SOLANO to LAD and SVG to RPDA/RPL, ischemic cardiomyopathy EF 40% who presents from coumadin clinic with chest pain for 1 week. I asked him about his chest pain and he tells me that he does not have pain or dyspnea but that his heart is going up and down up and down and it is not right he has pain when this happens. He notes it happens at all times with exertion and rest since he had an event on Wednesday after walking 3 miles. He has no pain with walking or going up the stairs as the pain has not really stopped. He has no change in medications. Took his aspirin this AM and all of his AM medications ON discharge the patient tells me a story of where he normally walks 4 miles a day and last wednesday he walked 3 miles and went to rest when he started again he had severe chest pain and barely made it home he was very tired the whole day after. The following day he seemed okay. Now he notes he gets these episodes of pain and his heart races and he feels tired and has pain. MD complaint: chest discomfort and other (palpitations) Pertinent past history: coronary artery disease and CABG Onset (ago): week(s) (1) Timing of current episode: episodic Prior episodes: No Onset: during rest and during exertion Pain location: substernal Pain radiation: none Severity: mild Quality: sharp Relieving factors: nothing Exacerbating factors: nothing Associated symptoms: palpitations Treatment prior to arrival: none Related Data Home Medications Medication Instructions Recorded Confirmed aspirin 81 mg tablet,delayed 81 mg PO DAILY 06/14/23 08/06/23 release (Adult Aspirin Regimen) lisinopril 10 mg tablet 10 mg PO DAILY 06/14/23 08/06/23 warfarin 5 mg tablet 5 mg PO .COMPLEX 06/14/23 08/06/23 metformin 500 mg tablet 1,000 mg PO BID 07/08/23 08/06/23 Previous Rx's Medication Instructions Recorded glipizide 10 mg tablet 10 mg PO BID #180 tabs 07/29/20 carvedilol 12.5 mg tablet 12.5 mg PO BID 90 days #180 tabs 09/30/20 atorvastatin 40 mg tablet 40 mg PO DAILY #90 tabs 10/16/20 Allergies Allergy/AdvReac Type Severity Reaction Status Date / Time isosorbide Allergy Unknown dizziness Verified 08/06/23 10:14 Review of Systems 2 Review of Systems: Constitutional : No Fever, No Chills ENT/Mouth : No sore throat, No Rhinorrhea, No Swallowing Difficulty Eyes: No Eye Pain, No Swelling, No Redness Cardiovascular : No Chest Pain, no SOB, No Orthopnea, no Edema Respiratory : No Cough, No Sputum, No Wheezing, no dyspnea, pos palps Gastrointestinal : No Nausea, No Vomiting, No Diarrhea, No abdominal Pain, No Hematochezia, No Melena Genitourinary : No Dysuria, No Urinary Frequency, No Hematuria Musculoskeletal : No joint pain, No Myalgias Skin : No Skin Lesions, No rash Neuro : No Weakness, No Numbness, No Dizziness, No Headache Psych : No Anxiety/Panic, No Depression Heme/Lymph: No Bruising, No Lymphadenopathy Endocrine : No Polyuria, No Polydipsia All other systems reviewed and are negative [facility] Past Medical History Attestation statement: The following information was validated with the patient. Source: old records reviewed Medical History Hyperlipidemia HTN (hypertension) Diabetes mellitus CAD (coronary artery disease) Atrial fibrillation Social History Social History Housing: House Housing Other:: [employer] [facility] Alcohol intake: former Patient Tobacco Use Status: Never used Tobacco Smoked in Last 30 Days: No Use of substances other than those prescribed or required for medical reasons: No Advance Directives: Yes Advance Directives Information Provided: Yes Advance Directives on File: No Current occupation: RETIRED 20 YEARS Current occupational exposures/hazards: No Physical Exam 2 Vital Signs: Vital Signs: Last Vital Signs Temp 98.6 F 08/06/23 13:25 Pulse 59 08/06/23 13:25 Resp 16 08/06/23 13:25 BP 144/74 H 08/06/23 13:25 Pulse Ox 98 08/06/23 13:25 O2 Del Method Room Air 08/06/23 13:25 BMI result Body Mass Index 23.9 Appearance: Alert. Oriented X3. No acute distress. Eyes: Pupils equal, round and reactive to light. ENT: Pharynx normal. Neck: Normal inspection. Neck supple. CVS: Normal heart rate and rhythm. Pulses normal. Respiratory: No respiratory distress. Breath sounds normal. Abdomen: Soft and nontender. Skin: Skin warm and dry. Normal skin color. Normal skin turgor. Extremities: No lower extremity edema. No calf ttp Neuro: Oriented X 3. No motor deficit. No sensory deficit. Course Course Course Narrative: states he has no pain and feels better with magnesium Reevaluation(s) Reevaluation #1: Dr. Gross from [facility] aware of findings in ED - negative troponin at this time can follow up as outpatient they will contact him soon. plan for next week. Medications Administered Discontinued Medications Generic Name Dose Route Start Last Admin Trade Name Freq PRN Reason Stop Dose Admin Magnesium Sulfate 2 gm in 50 mls @ 25 mls/hr 08/06/23 10:53 08/06/23 14:30 Magnesium Sulfate/H2o IV 08/06/23 12:52 Infused ONCE ONE Infusion Medical Decision Making Medical Decision Making MDM Narrative: 82 yo male with PMH of CHF s/p AICD, PAF on coumadin, HTN, HLD, DM, CAD s/p CABG in 2008 with SOLANO to LAD and SVG to RPDA/RPL, ischemic cardiomyopathy EF 40% here with what he initially stated was chest pain but then when I ask him he states it is an up and down heart beat and not really pain right now. He denies recent infectious or GIB symptoms. He denies that his palpitations or discomfort are triggered by exertion but it all started with vigorous exercise last week which is concerning as he normally walks 3 to 4 miles every other day and he cannot now.. He has no associated dyspnea or edema. He has no med changes. At this time will obtain EKG, trop x 2, BNP, lytes and CXR. on discharge spoke to patient again and his story is concerning for angina I am going to touch base with cardiology - Dr. Rincon feels he needs cath would recommend talking to [facility] Differential Diagnosis Differential Diagnoses: The differential diagnosis associated with the presentation includes chest pain, lyte abnormality, afib, angina Admission/Observation Consideration of admission/observation: Escalation of care including admission/observation considered trop flat x 2, no events on tele, INR > 2.0 mag was repleted. Consult Healthcare Provider Management of the patient was discussed with: Student Finance Specialist (cardiology - feels he needs a cath) Lab Data MDM Lab Attestation statement: I reviewed the patient's lab results. 08/06/23 10:32 08/06/23 10:32 Labs: Lab Results 08/06/23 08/06/23 08/06/23 Range/Units 10:32 12:39 15:12 WBC 4.7 L (4.8-10.8) X10*3/uL RBC 3.74 L (4.60-5.80) X10*6/uL Hgb 10.5 L (14.0-18.0) g/dl Hct 32.7 L (42.0-52.0) % MCV 87.4 (80.0-98.0) fL MCH 28.1 (27.0-33.0) pg MCHC 32.1 (31.0-36.0) g/dl RDW 13.2 (11.0-16.0) % Plt Count 199 (160-400) X10*3/uL MPV 9.5 (9.4-12.4) fL Immature Gran % (Auto) 0.2 (0.0-0.4) % Neut % (Auto) 65.9 (45-73) % Lymph % (Auto) 20.9 (20-40) % Johnston % (Auto) 10.9 (2-11) % Eos % (Auto) 1.7 (0-4) % Baso % (Auto) 0.4 (0-2) % Lymph # (Auto) 1.0 L (1.2-4.9) X10*3/uL Johnston # (Auto) 0.5 (0.1-1.2) X10*3/uL Eos # (Auto) 0.1 (0.0-0.4) X10*3/uL Baso # (Auto) 0.0 (0.0-0.2) X10*3/uL Abs Immat Gran (auto) 0.01 (0.00-0.03) X10*3/uL Absolute Neuts (auto) 3.1 (2.0-8.3) x10*3/uL Absolute Nucleated RBC 0.000 (0.0-0.012) X10*3/uL Nucleated RBC % (auto) 0.0 (0.0-0.2) /100WBC PT 30.0 H (11.1-13.3) SEC INR 2.5 H (0.9-1.1) Sodium 137 (135-145) mmol/L Potassium 5.3 H (3.3-5.1) mmol/L Chloride 104 (96-108) mmol/L Carbon Dioxide 28 (22-29) mmol/L Anion Gap 10 L (12-20) BUN 18 H (9-16) mg/dL Creatinine 0.92 (0.5-1.4) mg/dL Estim Creat Clear Calc 53.8 Estimated GFR > 60 Random Glucose 298 H (60-115) mg/dL Calcium 9.5 (8.4-10.2) mg/dL Magnesium 1.5 L (1.6-2.6) mg/dL Troponin I High Sens 7.9 7.1 (<3.5-35.0) ng/L B-Natriuretic Peptide 552 H (<100) pg/mL COVID-19 (SUKHDEEP) Negative (Negative) COVID-19 Clin Com See Note Independent Interpretation I performed an independent interpretation of an: EKG and Plain X-Ray Interpretation: Rate: 60 Rhythm: atrial paced with occ PVCs [place]: normal Normal QRS complex. ST T wave : no AISHA, inverted t wave I aVL, V4- V6 qTC: normal prior studies: no change from 2019 The study has been interpreted contemporaneously by me. . Radiology Impression Discussion of test interpretation with radiology: I have reviewed the radiologist's reading. External Record Review External record reviewed: Outpatient record Discharge Plan Discharge Clinical Impression: Hypomagnesemia, Stable angina Chest pain Qualifiers: Chest pain type: unspecified Qualified Code(s): R07.9 - Chest pain, unspecified Patient Disposition: Home, Self-Care Instructions: Chest Pain (ED), Hypomagnesemia (ED) Additional Instructions: return for any further events. take all of your medications. your cardiology office is aware and will call you for appointment next week. return for worsening pain. avoid any long walks until you see cardiology. Regrese para m?s eventos. tome todos bryan medicamentos. wen consultorio de cardiolog?a est? al tanto y lo llamar? para chivo ulysses la pr?xima semana. regresar si el dolor empeora. Evite caminatas largas hasta que debo a cardiolog?a. Prescriptions: No Action glipizide 10 mg tablet 10 mg PO BID Qty: 180 1RF carvedilol 12.5 mg tablet 12.5 mg PO BID 90 Days Qty: 180 1RF Rx Instructions: must administer with a meal/food atorvastatin 40 mg tablet 40 mg PO DAILY Qty: 90 3RF warfarin 5 mg tablet 5 mg PO .COMPLEX Protocol: Dose Management Condition: Wednesday (Week One) Dose/Route: 7.5 mg Instruction: 1.5 x 5 mg tablets Condition: Wednesday Dose/Route: 5 mg Instruction: 1 x 5 mg tablet Condition: Wednesday Dose/Route: 7.5 mg Instruction: 1.5 x 5 mg tablets Condition: Wednesday Dose/Route: 5 mg Instruction: 1 x 5 mg tablet Condition: Dose/Route: 7.5 mg Instruction: 1.5 x 5 mg tablets Condition: Wednesday Dose/Route: 5 mg Instruction: 1 x 5 mg tablet Condition: Wednesday Dose/Route: 5 mg Instruction: 1 x 5 mg tablet Condition: Wednesday (Week Two) Dose/Route: 7.5 mg Instruction: 1.5 x 5 mg tablets Condition: Wednesday Dose/Route: 5 mg Instruction: 1 x 5 mg tablet Condition: Wednesday Dose/Route: 7.5 mg Instruction: 1.5 x 5 mg tablets Condition: Wednesday Dose/Route: 5 mg Instruction: 1 x 5 mg tablet Condition: Dose/Route: 7.5 mg Instruction: 1.5 x 5 mg tablets Condition: Wednesday Dose/Route: 5 mg Instruction: 1 x 5 mg tablet Condition: Wednesday Dose/Route: 5 mg Instruction: 1 x 5 mg tablet Protocol Text: Adjustment Start Date: Wednesday08/06/23 INR Value: 2.3 INR Date: 08/06/23 Recheck Date: 08/16/23 Patient Comments: JUST INITIATED WARFARIN 06/11/23 Rx Instructions: 5 mg orally OR PER INR; lisinopril 10 mg tablet 10 mg PO DAILY aspirin [Adult Aspirin Regimen] 81 mg tablet,delayed release (DR/EC) 81 mg PO DAILY metformin 500 mg tablet 1,000 mg PO BID Print Language: Estonian
[2023-08-06 10:51] LABS: Anion Gap 10 (12-20); Blood Urea Nitrogen 18 mg/dL (9-16); Calcium 9.5 mg/dL (8.4-10.2); Carbon Dioxide 28 mmol/L (22-29); Chloride 104 mmol/L (96-108); Creatinine Clr Calc Pharmacy 53.8; Estimated Glomerular Filt Rate > 60; Glucose Random 298 mg/dL (60-115); Magnesium 1.5 mg/dL (1.6-2.6); Potassium 5.3 mmol/L (3.3-5.1); Sodium 137 mmol/L (135-145)
[2023-08-06 10:58] LABS: Troponin-I High Sensitivity 7.9 ng/L (<3.5-35.0)
[2023-08-06 11:00] LABS: B Type Natriuretic Peptide 552 pg/mL (<100)
[2023-08-06] MEDS: Magnesium Sulfate/H2O 2 GM/50 ML PIGGYBACK IV (12:34)
[2023-08-06 13:03] LABS: Troponin-I High Sensitivity 7.1 ng/L (<3.5-35.0)
[2023-08-06 13:25] VITALS: BP 144/74; PULSE 59; RESP 16; TEMP 37; O2SAT 98
[2023-08-06 15:37] LABS: COVID-19 Test Negative (Negative); IDNOW Serial# BCCEAD1C
[2023-08-06 16:10] VITALS: BP 148/76; PULSE 63; RESP 14; TEMP 36.4; O2SAT 99
--- NOTE | 2023-08-06 16:15 | PC.NURSE ---
ASSUMED CARE OF PT AT 1500 - PT RESTING COMFORTABLY ON THE STRETCHER IN NO APPARENT DISTRESS. PT OFFERS NO CURRENT COMPLAINTS, DENIES PAIN. 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 CALL JASSO WITHIN REACH PLAN OF CARE ONGOING
[2023-08-06 16:26] LABS: Appearance Urine Clear; Color Urine Yellow; Glucose Urine UA 500 mg/dL (Negative); Leukocyte Esterase Urine Negative (Negative); Nitrite Urine Negative (Negative); Urine Blood Negative (Negative); Urine Ketones Negative (Negative); Urine Protein Negative (Neg-Trace)
== END 2023-08-06 16:44 | disposition home or self-care (01) ==
PROVIDERS: Emergency Provider Emergency Medicine; PCP Internal Medicine
DX: R07.89 Other chest pain (principal); R00.2 Palpitations; E83.42 Hypomagnesemia; I20.9 Angina pectoris, unspecified; R06.02 Shortness of breath; Z11.52 Encounter for screening for COVID-19; Z20.822 Contact with and (suspected) exposure to COVID-19; Z79.899 Other long term (current) drug therapy
CPT/HCPCS: 36415; 71045; 80048; 81003; 83735; 83880; 84484; 85025; 85610; 87635; 93005; 96365; 96366; 99211; 99284; 99285; J3475

== ENCOUNTER 2023-08-16 09:39 | Outpatient (AMB) | payer MEDICARE, SELFPAY ==
[2023-08-16 09:50] LABS: Prothrombin Time Whole Bld POC 28.9 sec (11.1-13.5); ~PT, ~INR - Anti Coag Clinic 2.4 (0.9-1.1)
--- NOTE | 2023-08-16 10:09 | MHC.OFFVISCO ---
Intake Intake Visit Reasons: Anticoagulation Allergies isosorbide Adverse Reaction (Unknown, Verified 08/16/23 13:16) dizziness Medication List - Last Reconciled 08/16/23 by Aster Gates, RN aspirin (Adult Aspirin Regimen) 81 mg PO DAILY atorvastatin 40 mg PO DAILY carvedilol 12.5 mg PO BID 90 days glipizide 10 mg PO BID lisinopril 10 mg PO DAILY magnesium oxide 400 mg PO DAILY metformin 1,000 mg PO BID warfarin See Protocol 5 mg orally OR PER INR; Nursing Note HEMATURIA CBC AND UA ORDERED HOLD WARFARIN FOR NOW CALL TO PRESIDENT PRACTICING UROLOGIST- SPOKE WITH RONAL PT WITH RACHEL - WAS TREATED LAST WEEK [place] [facility] PT WONDERS IF MAGNESIUM CAUSING HEMATURIA DAUGHTER TO BRING TO ER IF BLEEDING CONT F/ U CALL WITH DAUGHTER THIS AFTERNOON -PT STILL HAS HEMATURIA RECOMMEND ER - SHE AGREENS ( BECAUSE IT WAS MORE THAN ONE DAY WHEN SHE ASKED HIM MOR E QUESTIONS) HOLD WARFARIN OR PER MD INSTRUCTIONS AND F/U WITH PT AND DAUGHTER TOMORROW Anti-Coag Initial Assessment Social Hx Patient Tobacco Use Status: Never used Tobacco alcohol intake: former Alcohol intake frequency: does not drink Cardiovascular Hx: HTN, Angina (NON CURRENT BUT DID WITH 4 HEART ATTACKS ), [place] (51 YEARS OLD, SEVERAL HEART ATTACKS, ), Arrhythmias (AFIB STARTED WARFARIN 4 YEARS AGO, WAS ON ELIQUIS BUT STOP DUE TO COST ), Cardiomyopathy and Other (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 Illness/Depression: Yes Coding Level of Care Code Est Patient Level 2
== END 2023-08-16 10:11 | disposition home or self-care (01) ==
LOC: HO.ACS 09:39
PROVIDERS: PCP Internal Medicine; Visit Provider Internal Medicine
DX: Z79.01 Long term (current) use of anticoagulants (principal)

== ENCOUNTER 2023-08-16 09:39 | Outpatient (REF) | payer MEDICARE, SELFPAY ==
[2023-08-16 10:45] LABS: Hematocrit 32.9 % (42.0-52.0); Hemoglobin 10.5 g/dl (14.0-18.0); Mean Corpuscular HGB Conc 31.9 g/dl (31.0-36.0); Mean Corpuscular Hemoglobin 28.2 pg (27.0-33.0); Mean Corpuscular Volume 88.4 fL (80.0-98.0); Mean Platelet Volume 8.9 fL (9.4-12.4); Platelet Count 194 X10*3/uL (160-400); Red Blood Count 3.72 X10*6/uL (4.60-5.80); Red Cell Distribution Width 13.5 % (11.0-16.0); White Blood Count 5.3 X10*3/uL (4.8-10.8)
[2023-08-16 10:48] LABS: Appearance Urine Clear; Color Urine Yellow; Glucose Urine UA >=1000 mg/dL (Negative); Leukocyte Esterase Urine Negative (Negative); Nitrite Urine Negative (Negative); UMIC TRIGGER UA YES; Urine Blood Moderate (2+) (Negative); Urine Ketones Negative (Negative); Urine Protein Trace mg/dL (Neg-Trace)
[2023-08-16 10:50] LABS: Bacteria Urine None Seen (None Seen); Hyaline Casts Urine 0-2 /LPF (0-2); RBC Urine >20 /HPF (0-2); Squamous Epithelial Cell Urine 0-2 /HPF (0-2); WBC Urine 0-5 /HPF (0-5)
== END 2023-08-16 09:40 | disposition home or self-care (01) ==
LOC: HO.LAB 09:39
PROVIDERS: PCP Internal Medicine; Visit Provider Internal Medicine
DX: Z13.89 Encounter for screening for other disorder (principal)
CPT/HCPCS: 36415; 81001; 85027; 85610; 99212

== ENCOUNTER 2023-08-16 12:47 | Emergency (ER) | payer MEDICARE, SELFPAY ==
--- NOTE | ~2023-08-16 | CT_ITS ---
EXAMINATION: CT ABDOMEN AND PELVIS WITHOUT CONTRAST CLINICAL INFORMATION: On Coumadin COMPARISON: CT abdomen and pelvis 04/23/2018 TECHNIQUE: Multidetector volumetric imaging was performed from the superior aspect of the liver through the pubic symphysis. Sagittal and coronal reformatted images were obtained on the technologist's workstation. This CT examination was performed using dose optimization techniques as appropriate, variously including the following: *Automated exposure control *Adjustment of mA and/or kV according to patient size (this includes techniques or standardized protocols for targeted exams where dose is matched to indication/reason for exam; i.e. extremities or head) *Use of iterative reconstruction technique DLP: 338 mGy-cm FINDINGS: LUNG BASES: There is 6 lobe subpleural nodule left lower lobe. There is platelike atelectasis in both lung bases. There are pacer electrode in the right atrium and right ventricle. The heart size is normal. No pericardial effusion seen. LIVER, GALLBLADDER, AND BILIARY TREE: The liver is normal in size, shape, and attenuation. No focal hepatic lesion or biliary ductal dilatation is present. The gallbladder is unremarkable with no evidence of radiopaque gallstones, gallbladder wall thickening, or obvious pericholecystic inflammatory changes. PANCREAS: Unremarkable. SPLEEN: Unremarkable. ADRENAL GLANDS: There is a 1.6 x 1.3 cm left adrenal lesion measuring -7 Hounsfield units likely benign. The right adrenal gland is unremarkable. KIDNEYS AND URETERS: The kidneys are normal in size, shape, and attenuation. There are multiple bilateral small radiopaque renal calculi. There is no hydronephrosis. There is moderate bilateral perinephric stranding. BLADDER: The bladder is distended extending to the umbilicus. No bladder wall thickening seen. GASTROINTESTINAL TRACT: There is scattered stool and gas seen throughout the colon. The stomach is mildly distended with oral ingestion or recent food and liquids. Fluid-filled nondilated small bowel loops with ABDOMINAL WALL: There is a small umbilical hernia containing fat. LYMPH NODES: No abnormal size retroperitoneal lymph nodes seen VASCULAR: Unremarkable. PELVIC VISCERA: Unremarkable. OSSEOUS STRUCTURES: Mild degenerative disc changes L4-L5 and L3-L4 disc level. No aggressive lytic or sclerotic process seen. CT/CT abdomen pelvis wo IV con IMPRESSION: Mild constipation with most of stool in the right colon. There is no bowel obstruction. Distended bladder with 2-3 diverticulum. No acute fracture or dislocation seen Fleischner guidelines were followed.
--- NOTE | 2023-08-16 13:14 | ED_ITS ---
HPI - Male Genitourinary General Chief complaint: Urogenital-Male Stated complaint: Blood in urine Time Seen by Provider: 08/16/23 17:43 Source: patient Mode of arrival: ambulatory Limitations: no limitations History of Present Illness HPI Narrative: patient comes to the emergency room complaining of hematuria for couple of days. Patient states that he is on Coumadin for atrial fibrillation. Patient states that he has no difficulty urinating. patient states that the hematuria is worse in the morning and gets better throughout the day. Patient denies dysuria or flank pain, no fever or chills Related Data Home Medications Medication Instructions Recorded Confirmed aspirin 81 mg tablet,delayed 81 mg PO DAILY 06/14/23 08/16/23 release (Adult Aspirin Regimen) lisinopril 10 mg tablet 10 mg PO DAILY 06/14/23 08/16/23 warfarin 5 mg tablet 5 mg PO .COMPLEX 06/14/23 08/16/23 metformin 500 mg tablet 1,000 mg PO BID 07/08/23 08/16/23 magnesium oxide 400 mg (241.3 mg 400 mg PO DAILY 08/16/23 08/16/23 magnesium) tablet Previous Rx's Medication Instructions Recorded glipizide 10 mg tablet 10 mg PO BID #180 tabs 07/29/20 carvedilol 12.5 mg tablet 12.5 mg PO BID 90 days #180 tabs 09/30/20 atorvastatin 40 mg tablet 40 mg PO DAILY #90 tabs 10/16/20 Allergies Allergy/AdvReac Type Severity Reaction Status Date / Time isosorbide AdvReac Unknown dizziness Verified 08/16/23 13:16 Review of Systems 2 Review of Systems: Constitutional : No Weight loss, No Fever, No Chills, No Night Sweats, No Fatigue, No Malaise ENT/Mouth : No Hearing loss, No Ear Pain, No Nasal Congestion, No Sinus Pain, No Hoarseness, No sore throat, No Rhinorrhea, No Swallowing Difficulty Eyes: No Eye Pain, No Swelling, No Redness, No Foreign Body, No Discharge, No Vision Changes Cardiovascular : No Chest Pain, No SOB, No Dyspnea on Exertion, No Orthopnea, No Edema, No Palpitations Respiratory : No Cough, No Sputum, No Wheezing, No Smoke Exposure, No Dyspnea Gastrointestinal : No Nausea, No Vomiting, No Diarrhea, No Constipation, No abdominal Pain, No Hematochezia, No Melena Genitourinary : denies Dysuria, No Urinary Frequency, complaining of Hematuria that is worse in the morning and clears up throughout the day after drinking plenty of fluids, No Urinary Incontinence, No Urgency, No Flank Pain, No Urinary Flow Changes, No Hesitancy Musculoskeletal : No joint pain, No Myalgias, No Joint Swelling Skin : No Skin Lesions, No rash Neuro : No Weakness, No Numbness, No Paresthesias, No Loss of Consciousness, No Dizziness, No Headache Psych : No Anxiety/Panic, No Depression, No SI/HI/AH/VH, No Social Issues, Heme/Lymph: No Bruising, No Bleeding,No Lymphadenopathy Endocrine : No Polyuria, No Polydipsia, No Temperature Intolerance [facility] Past Medical History Medical History Hyperlipidemia HTN (hypertension) Diabetes mellitus CAD (coronary artery disease) Atrial fibrillation Social History Housing: House Housing Other:: [employer] [facility] Alcohol intake: former Patient Tobacco Use Status: Never used Tobacco Smoked in Last 30 Days: No Use of substances other than those prescribed or required for medical reasons: No Advance Directives: Yes Advance Directives Information Provided: Yes Advance Directives on File: Yes Advance Directives Date on File: 08/16/23 Current occupation: RETIRED 20 YEARS Current occupational exposures/hazards: No Physical Exam 2 Vital Signs: Vital Signs: Last Vital Signs Temp 98.2 F 08/16/23 18:13 Pulse 61 08/16/23 18:13 Resp 14 08/16/23 18:13 BP 146/70 H 08/16/23 18:13 Pulse Ox 99 08/16/23 18:13 O2 Del Method Room Air 08/16/23 18:13 BMI result Body Mass Index 23.5 Const: Other: Appearance: Alert. Oriented X3. No acute distress. Eyes: Pupils equal, round and reactive to light. ENT: Pharynx normal. Neck: Normal inspection. Neck supple. No lymph nodes noted. No crepitus CVS: Normal heart rate and rhythm. Pulses normal. Normal S1 and S2 Respiratory: No respiratory distress. Breath sounds normal. No Wheezing. No rales Abdomen: Soft and nontender. No rigidity. No distention. Skin: Skin warm and dry. Normal skin color. Normal skin turgor. Extremities: No lower extremity edema. No Lacerations. No Rash Neuro: Oriented X 3. No motor deficit. No sensory deficit. Moving all extremities. No slurred speech. CN 2 through 12 grossly intact Psych: calm, cooperative, normal affect Course Course Course Narrative: This is a rapid medical exam. deferred additional HPI, ROS, PE to primary provider. 82 yo male with history of afib on coumadin here with hematuria, difficulty urinating x 1 week. Patient had CBC, INR and urine done this morning in the lab Will obtain BMP, MG (per family request) VSS Medical Decision Making Medical Decision Making MDM Narrative: - my interpretation of labs, hematology is at baseline, INR therapeutic at 2.4. Urinalysis does show blood, no UTI. However, patient is able to urinate within normal limits. I saw the patient's urine, there was a small clot with yellow urine. At this time, CBI is not indicated. Also, at this time we will not be changing any of his medication Doses. Patient will continue taking current dose of Coumadin. Also, patient's magnesium was 1.5. normal magnesium level 1.6, patient is taking magnesium at home. - discussed with the patient that if he sees horacio hematuria or he is unable to urinate, he needs to come to the emergency room. Differential Diagnosis Differential Diagnoses: The differential diagnosis associated with the presentation includes ( Hematuria, kidney stone, supratherapeutic INR, UTI) Lab Data [facility] Lab Attestation statement: I reviewed the patient's lab results. 08/16/23 14:03 Labs: Lab Results 08/16/23 Range/Units 14:03 Sodium 138 (135-145) mmol/L Potassium 5.1 (3.3-5.1) mmol/L Chloride 104 (96-108) mmol/L Carbon Dioxide 29 (22-29) mmol/L Anion Gap 10 L (12-20) BUN 15 (9-16) mg/dL Creatinine 1.11 (0.5-1.4) mg/dL Estim Creat Clear Calc 44.6 Estimated GFR > 60 Random Glucose 248 H (60-115) mg/dL Calcium 9.3 (8.4-10.2) mg/dL Magnesium 1.5 L (1.6-2.6) mg/dL Independent Interpretation I performed an independent interpretation of an: CT Scan ( my interpretation of CT scan: No ureterolithiasis) Radiology Impression Discussion of test interpretation with radiology: I have reviewed the radiologist's reading. Radiologist Impression: FINDINGS: LUNG BASES: There is 6 lobe subpleural nodule left lower lobe. There is platelike atelectasis in both lung bases. There are pacer electrode in the right atrium and right ventricle. The heart size is normal. No pericardial effusion seen. LIVER, GALLBLADDER, AND BILIARY TREE: The liver is normal in size, shape, and attenuation. No focal hepatic lesion or biliary ductal dilatation is present. The gallbladder is unremarkable with no evidence of radiopaque gallstones, gallbladder wall thickening, or obvious pericholecystic inflammatory changes. PANCREAS: Unremarkable. SPLEEN: Unremarkable. ADRENAL GLANDS: There is a 1.6 x 1.3 cm left adrenal lesion measuring -7 Hounsfield units likely benign. The right adrenal gland is unremarkable. KIDNEYS AND URETERS: The kidneys are normal in size, shape, and attenuation. There are multiple bilateral small radiopaque renal calculi. There is no hydronephrosis. There is moderate bilateral perinephric stranding. BLADDER: The bladder is distended extending to the umbilicus. No bladder wall thickening seen. GASTROINTESTINAL TRACT: There is scattered stool and gas seen throughout the colon. The stomach is mildly distended with oral ingestion or recent food and liquids. Fluid-filled nondilated small bowel loops with ABDOMINAL WALL: There is a small umbilical hernia containing fat. LYMPH NODES: No abnormal size retroperitoneal lymph nodes seen VASCULAR: Unremarkable. PELVIC VISCERA: Unremarkable. OSSEOUS STRUCTURES: Mild degenerative disc changes L4-L5 and L3-L4 disc level. No aggressive lytic or sclerotic process seen. CT/CT abdomen pelvis wo IV con IMPRESSION: Mild constipation with most of stool in the right colon. There is no bowel obstruction. Distended bladder with 2-3 diverticulum. No acute fracture or dislocation seen Fleischner guidelines were followed. Independent Historian Clinical information obtained from an independent historian. History obtained from or confirmed by: Other ( patient's daughter) Discharge Plan Discharge Clinical Impression: Hematuria Patient Disposition: Home, Self-Care Instructions: Hematuria (ED) Additional Instructions: Please follow-up with your primary care physician tomorrow. If you have any worsening or new symptoms, please return to the emergency room or call 911 Prescriptions: No Action glipizide 10 mg tablet 10 mg PO BID Qty: 180 1RF carvedilol 12.5 mg tablet 12.5 mg PO BID 90 Days Qty: 180 1RF Rx Instructions: must administer with a meal/food atorvastatin 40 mg tablet 40 mg PO DAILY Qty: 90 3RF magnesium oxide 400 mg (241.3 mg magnesium) tablet 400 mg PO DAILY warfarin 5 mg tablet 5 mg PO .COMPLEX Protocol: Dose Management Condition: Wednesday (Week One) Dose/Route: 7.5 mg Instruction: 1.5 x 5 mg tablets Condition: Wednesday Dose/Route: 0 mg Instruction: 0 tablets Condition: Wednesday Dose/Route: 7.5 mg Instruction: 1.5 x 5 mg tablets Condition: Wednesday Dose/Route: 5 mg Instruction: 1 x 5 mg tablet Condition: Dose/Route: 7.5 mg Instruction: 1.5 x 5 mg tablets Condition: Wednesday Dose/Route: 5 mg Instruction: 1 x 5 mg tablet Condition: Wednesday Dose/Route: 5 mg Instruction: 1 x 5 mg tablet Condition: Wednesday (Week Two) Dose/Route: 7.5 mg Instruction: 1.5 x 5 mg tablets Condition: Wednesday Dose/Route: 5 mg Instruction: 1 x 5 mg tablet Condition: Wednesday Dose/Route: 7.5 mg Instruction: 1.5 x 5 mg tablets Condition: Wednesday Dose/Route: 5 mg Instruction: 1 x 5 mg tablet Condition: Dose/Route: 7.5 mg Instruction: 1.5 x 5 mg tablets Condition: Wednesday Dose/Route: 5 mg Instruction: 1 x 5 mg tablet Condition: Wednesday Dose/Route: 5 mg Instruction: 1 x 5 mg tablet Protocol Text: Adjustment Start Date: Wednesday08/16/23 INR Value: 2.4 INR Date: 08/16/23 Recheck Date: 08/23/23 Additional Instructions: WILL CALL WITH [place] INSTRUCTIONS Patient Comments: JUST INITIATED WARFARIN 06/11/23 Rx Instructions: 5 mg orally OR PER INR; lisinopril 10 mg tablet 10 mg PO DAILY aspirin [Adult Aspirin Regimen] 81 mg tablet,delayed release (DR/EC) 81 mg PO DAILY metformin 500 mg tablet 1,000 mg PO BID
[2023-08-16 13:15] VITALS: BP 154/86; PULSE 78; RESP 16; TEMP 36.8; O2SAT 99; BMI 23.5
[2023-08-16 14:23] LABS: Anion Gap 10 (12-20); Blood Urea Nitrogen 15 mg/dL (9-16); Calcium 9.3 mg/dL (8.4-10.2); Carbon Dioxide 29 mmol/L (22-29); Chloride 104 mmol/L (96-108); Creatinine Clr Calc Pharmacy 44.6; Estimated Glomerular Filt Rate > 60; Glucose Random 248 mg/dL (60-115); Magnesium 1.5 mg/dL (1.6-2.6); Potassium 5.1 mmol/L (3.3-5.1); Sodium 138 mmol/L (135-145)
[2023-08-16 18:13] VITALS: BP 146/70; PULSE 61; RESP 14; TEMP 36.8; O2SAT 99
--- NOTE | 2023-08-16 18:16 | PC.NURSE ---
a&ox3, vss and up to date at this time. pt comes in today d/t hematuria/dysuria x 1 week. pt states difficulty starting stream. denies fever/chills/abd pain/flank pain/kidney stones. no sob/wob noted. respirations even and unlabored. bedside. call jimenez placed within reach.
== END 2023-08-16 18:58 | disposition home or self-care (01) ==
PROVIDERS: Nurse Practitioner Family; Emergency Provider Emergency Medicine; PCP Internal Medicine
DX: R31.9 Hematuria, unspecified (principal); E11.8 Type 2 diabetes mellitus with unspecified complications; I10 Essential (primary) hypertension; E78.5 Hyperlipidemia, unspecified; I48.91 Unspecified atrial fibrillation; Z79.01 Long term (current) use of anticoagulants; Z79.82 Long term (current) use of aspirin; Z79.84 Long term (current) use of oral hypoglycemic drugs; Z79.899 Other long term (current) drug therapy
CPT/HCPCS: 36415; 51798; 74176; 80048; 81001; 83735; 85027; 85610; 99212; 99284

== ENCOUNTER → 2023-08-17 11:46 | Outpatient (BNVA) | payer MEDICARE, SELFPAY | PROVIDERS: PCP Internal Medicine; Visit Provider Internal Medicine ==

== ENCOUNTER 2023-08-20 08:57 | Outpatient (AMB) | payer MEDICARE, SELFPAY ==
[2023-08-20 09:13] LABS: Prothrombin Time Whole Bld POC 25.9 sec (11.1-13.5); ~PT, ~INR - Anti Coag Clinic 2.2 (0.9-1.1)
--- NOTE | 2023-08-20 09:20 | MHC.OFFVISCO ---
Intake Intake Visit Reasons: Anticoagulation Allergies isosorbide Adverse Reaction (Unknown, Verified 08/17/23 11:46) dizziness Nursing Note INR: 2.2 in therapeutic range last week and earlier this week pt had gross hematuria, he believes when he started the high dose of magnesium that is when he started to have hematuria so he decreased the magnesium to 1 tablet daily and the hematuria stopped. warfarin was decreased during the time of hematuria to 5mg daily Denies any signs and symptoms of bleeding or bruising or clotting. Bleeding, bruising, clotting discussed Nutritional guidance given Dose: keep 5mg daily for now and f/u 1 week, it was explained that the dose may need to go back up to keep INR therapeutic F/U INR: 08/26/23 Patient verbalizes understanding of instructions given Anti-Coag Initial Assessment Social Hx Patient Tobacco Use Status: Never used Tobacco alcohol intake: former Alcohol intake frequency: does not drink Cardiovascular Hx: HTN, Angina (NON CURRENT BUT DID WITH 4 HEART ATTACKS ), [place] (51 YEARS OLD, SEVERAL HEART ATTACKS, ), Arrhythmias (AFIB STARTED WARFARIN 4 YEARS AGO, WAS ON ELIQUIS BUT STOP DUE TO COST ), Cardiomyopathy and Other (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 Illness/Depression: Yes Coding Level of Care Code Est Patient Level 1 Diagnoses Current use of anticoagulant therapy Z79.01 Results AMB INR Fingerstick AMB INR Fingerstick 2.2 Last Edit by Aster Gates RN on 08/20/23 09:15 MANUAL ENTRY FAILED INTERFACING Assessment & Plan Assessment & Plan (1) Current use of anticoagulant therapy: Code(s): Z79.01 - medical terminologist (current) use of anticoagulants Category: Medical
== END 2023-08-20 09:26 | disposition home or self-care (01) ==
LOC: HO.ACS 08:57
PROVIDERS: PCP Internal Medicine; Visit Provider Internal Medicine
DX: Z79.01 Long term (current) use of anticoagulants (principal)

== ENCOUNTER → 2023-08-20 08:57 | Outpatient (BNVA) | payer MEDICARE, SELFPAY | PROVIDERS: PCP Internal Medicine; Visit Provider Internal Medicine | DX: I48.0 Paroxysmal atrial fibrillation (principal); Z79.01 Long term (current) use of anticoagulants; Z51.81 Encounter for therapeutic drug level monitoring | CPT/HCPCS: 85610; 99211 ==

== ENCOUNTER 2023-08-26 09:19 | Outpatient (AMB) | payer MEDICARE, SELFPAY ==
--- NOTE | 2023-08-26 09:47 | MHC.OFFVISCO ---
Intake Intake Visit Reasons: Anticoagulation Allergies isosorbide Adverse Reaction (Unknown, Verified 08/26/23 09:43) dizziness Medication List - Last Reconciled 08/26/23 by Sonya Tobar RN aspirin (Adult Aspirin Regimen) 81 mg PO DAILY atorvastatin 40 mg PO DAILY carvedilol 12.5 mg PO BID 90 days glipizide 10 mg PO BID lisinopril 10 mg PO DAILY magnesium oxide 400 mg PO DAILY metformin 1,000 mg PO BID warfarin See Protocol 5 mg orally OR PER INR; Nursing Note INR1.6-?? out of therapeutic range of 2-3 Medications and supplements reviewed Patient status: pt denies hematuria or any bleeding, denies missed dose Medications or supplements: no changes Diet: same Denies any signs and symptoms of bleeding or clotting or unusual bruising Bleeding, bruising, clotting discussed Nutritional guidance given: no greens for 2 days, eat reds to raise inr Dose: 7.5mg today then 5mg x 6, 7.5mg x 1 F/U INR Date : 1 week? Patient verbalizing understanding of instructions given. 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 Illness/Depression: Yes Coding Level of Care Code Est Patient Level 1 Diagnoses Current use of anticoagulant therapy Z79.01 Assessment & Plan Assessment & Plan (1) Current use of anticoagulant therapy: Code(s): Z79.01 - retirement (current) use of anticoagulants Category: Medical
[2023-08-26 09:48] LABS: Prothrombin Time Whole Bld POC 19.8 sec (11.1-13.5); ~PT, ~INR - Anti Coag Clinic 1.6 (0.9-1.1)
== END 2023-08-26 09:57 | disposition home or self-care (01) ==
LOC: HO.ACS 09:19
PROVIDERS: PCP Internal Medicine; Visit Provider Internal Medicine
DX: Z79.01 Long term (current) use of anticoagulants (principal)

== ENCOUNTER → 2023-08-26 09:19 | Outpatient (BNVA) | payer MEDICARE, SELFPAY | PROVIDERS: PCP Internal Medicine; Visit Provider Internal Medicine | DX: I48.0 Paroxysmal atrial fibrillation (principal); Z79.01 Long term (current) use of anticoagulants; Z51.81 Encounter for therapeutic drug level monitoring | CPT/HCPCS: 85610; 99211 ==

== ENCOUNTER 2023-09-02 09:34 | Outpatient (AMB) | payer MEDICARE, SELFPAY ==
[2023-09-02 09:43] LABS: ~PT, ~INR - Anti Coag Clinic 1.8 (0.9-1.1)
--- NOTE | 2023-09-02 09:50 | MHC.OFFVISCO ---
Intake Intake Visit Reasons: Anticoagulation Allergies isosorbide Adverse Reaction (Unknown, Verified 09/02/23 09:38) dizziness Medication List - Last Reconciled 09/02/23 by Jenna Ugarte RN aspirin (Adult Aspirin Regimen) 81 mg PO DAILY atorvastatin 40 mg PO DAILY carvedilol 12.5 mg PO BID 90 days glipizide 10 mg PO BID lisinopril 10 mg PO DAILY magnesium oxide 400 mg PO DAILY metformin 1,000 mg PO BID warfarin See Protocol 5 mg orally OR PER INR; Nursing Note NO CP,SOB,DIET/MED CHANGES,FALLS OR SX OF BLEEDING. NO HEMATURIA INCREASE WEEKLY DOSE SLIGHTLY AND FOLLOW-UP IN 1 WEEK. GOOD UNDERSTANDING OF DOSING INSTR. 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 Illness/Depression: Yes Coding Level of Care Code Est Patient Level 1 Diagnoses Current use of anticoagulant therapy Z79.01 Assessment & Plan Assessment & Plan (1) Current use of anticoagulant therapy: Code(s): Z79.01 - rodent exterminator (current) use of anticoagulants Category: Medical
== END 2023-09-02 09:52 | disposition home or self-care (01) ==
LOC: HO.ACS 09:34
PROVIDERS: PCP Internal Medicine; Visit Provider Internal Medicine
DX: Z79.01 Long term (current) use of anticoagulants (principal)

== ENCOUNTER → 2023-09-02 09:34 | Outpatient (BNVA) | payer MEDICARE, SELFPAY | PROVIDERS: PCP Internal Medicine; Visit Provider Internal Medicine | DX: I48.0 Paroxysmal atrial fibrillation (principal); Z79.01 Long term (current) use of anticoagulants; Z51.81 Encounter for therapeutic drug level monitoring | CPT/HCPCS: 85610; 99211 ==

== ENCOUNTER 2023-09-09 09:05 | Outpatient (AMB) | payer MEDICARE, SELFPAY ==
[2023-09-09 09:32] LABS: Prothrombin Time Whole Bld POC 19.6 sec (11.1-13.5); ~PT, ~INR - Anti Coag Clinic 1.6 (0.9-1.1)
--- NOTE | 2023-09-09 09:38 | MHC.OFFVISCO ---
Intake Intake Visit Reasons: Anticoagulation Allergies isosorbide Adverse Reaction (Unknown, Verified 09/09/23 09:26) dizziness Medication List - Last Reconciled 09/09/23 by Sherie Khan RN aspirin (Adult Aspirin Regimen) 81 mg PO DAILY atorvastatin 40 mg PO DAILY carvedilol 12.5 mg PO BID 90 days glipizide 10 mg PO BID lisinopril 10 mg PO DAILY magnesium oxide 400 mg PO DAILY metformin 1,000 mg PO BID warfarin See Protocol 5 mg orally OR PER INR; Nursing Note Amb to ACS feeling ok Medications and supplements reviewed No changes in health, diet, medications, or supplements Denies any unusual signs and symptoms of bruising, bleeding Denies any new Chest pain, SOB, or clotting INR: 1.6 below therapeutic range, prev INRs also low with boosts and increase to weekly dosing pt denies any missed doses and sts he is not a very big green eater, noted hot chocolate intake and pt sts its dark chocolate Nutritional guidance given: increase reds to help raise, pt ts not a big green eater Dose: took warfarin alreaady this am, sts at 0830 so instructed to take 2.5mg (half a pill ) when he gets home then resume usual dosing.(7.5mg x 2 days and 5mg x 5 days) F/U INR: 1 week Patient verbalizes understanding of instructions given with accurate read back/ teach back of dosing Anti-Coag Initial Assessment Social Hx Patient Tobacco Use Status: Never used Tobacco alcohol intake: former Alcohol intake frequency: does not drink Cardiovascular Hx: HTN, Angina (NON CURRENT BUT DID WITH 4 HEART ATTACKS ), [place] (51 YEARS OLD, SEVERAL HEART ATTACKS, ), Arrhythmias (AFIB STARTED WARFARIN 4 YEARS AGO, WAS ON ELIQUIS BUT STOP DUE TO COST ), Cardiomyopathy and Other (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 Illness/Depression: Yes Questionnaires HAS-BLED Does the patient had uncontrolled Hypertension?: No Does the patient have renal disease?: Yes Does the patient have liver disease?: No Does the patient have a history of stroke?: No Has the patient had major bleeding or predisposition to bleeding?: No Does the patient have labile INRs?: Yes Is the patient over 65 years of age?: Yes Is the patient on medications that gives them a predisposition to bleeding?: Yes HAS-BLED Score: 4 CHADSVASC Age: 75 or over Gender: Male Does the patient have a history of CHF?: No Does the patient have a history of Hypertension?: Yes Does the patient have a history of Stroke/TIA/Thromboembolism?: Yes Does the patient have a history of Vascular Disease (prior [place], PAD or aortic plaque)?: Yes Does the patient have a history of Diabetes?: Yes CHADS VACS Score: 7 Marci Prediction Score Rsk VTE Active Cancer: No Previous VTE, excluding superficial vein thrombosis: Yes Reduced mobility: No Already known Thrombophilic Condition: Yes With-in last month Trauma and/or Surgery: No Elderly 70 year or older: Yes Heart and/or Respiratory Failure: No Acute Myocardial infarction and/or Ischemic Stroke: Yes Acute Infection and/or Rheumatologic Disorder: No Obesity (BMI 30 or greater): No Ongoing Hormonal Treatment: No Score: 8 Marci Score less than 4; Low Risk of VTE Marci Score 4 or greater; High Risk of VTE Coding Level of Care Code Est Patient Level 1 Diagnoses Current use of anticoagulant therapy Z79.01 Time Spent (min) 15 Assessment & Plan Assessment & Plan (1) Current use of anticoagulant therapy: Code(s): Z79.01 - exterminator (current) use of anticoagulants Category: Medical
== END 2023-09-09 11:49 | disposition home or self-care (01) ==
LOC: HO.ACS 09:05
PROVIDERS: PCP Internal Medicine; Visit Provider Internal Medicine
DX: Z79.01 Long term (current) use of anticoagulants (principal)

== ENCOUNTER → 2023-09-09 09:05 | Outpatient (BNVA) | payer MEDICARE, SELFPAY | PROVIDERS: PCP Internal Medicine; Visit Provider Internal Medicine | DX: I48.0 Paroxysmal atrial fibrillation (principal); Z79.01 Long term (current) use of anticoagulants; Z51.81 Encounter for therapeutic drug level monitoring | CPT/HCPCS: 85610; 99211 ==

== ENCOUNTER 2023-09-15 09:21 | Outpatient (AMB) | payer MEDICARE, SELFPAY ==
[2023-09-15 09:32] LABS: Prothrombin Time Whole Bld POC 22.1 sec (11.1-13.5); ~PT, ~INR - Anti Coag Clinic 1.8 (0.9-1.1)
--- NOTE | 2023-09-15 09:36 | MHC.OFFVISCO ---
Intake Intake Visit Reasons: Anticoagulation Allergies isosorbide Adverse Reaction (Unknown, Verified 09/15/23 09:24) dizziness Medication List - Last Reconciled 09/15/23 by Sherie Khan RN aspirin (Adult Aspirin Regimen) 81 mg PO DAILY atorvastatin 40 mg PO DAILY carvedilol 12.5 mg PO BID 90 days glipizide 10 mg PO BID lisinopril 10 mg PO DAILY magnesium oxide 400 mg PO DAILY metformin 1,000 mg PO BID warfarin See Protocol 5 mg orally OR PER INR; Nursing Note Amb to ACS feeling well Medications and supplements reviewed No changes in health, diet, medications, or supplements Denies any unusual signs and symptoms of bruising, bleeding Denies any new Chest pain, SOB, or clotting INR: 1.8 almost in therapeutic range Nutritional guidance given: balance greens and reds in diet, pt only eats certain foods, rare greens Dose: reviewed dosing and old dosing was 7.5mg x 3 days and 5mg x 4 days= 42.5mg (see dosing history) pt now will take this dosing again; pt to call us if any bloody urine or other bleeding concerns, pt took 5mg this morning at 0830 and will take 2.5mg when he gets home, sts he never forgets to take his meds at 0830 am and 8:30pm F/U INR: 10 days Patient verbalizes understanding of instructions given with accurate read back/ teach back of dosing Anti-Coag Initial Assessment Social Hx Patient Tobacco Use Status: Never used Tobacco alcohol intake: former Alcohol intake frequency: does not drink Cardiovascular Hx: HTN, Angina (NON CURRENT BUT DID WITH 4 HEART ATTACKS ), [place] (51 YEARS OLD, SEVERAL HEART ATTACKS, ), Arrhythmias (AFIB STARTED WARFARIN 4 YEARS AGO, WAS ON ELIQUIS BUT STOP DUE TO COST ), Cardiomyopathy and Other (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
== END 2023-09-15 09:46 | disposition home or self-care (01) ==
LOC: HO.ACS 09:21
PROVIDERS: PCP Internal Medicine; Visit Provider Internal Medicine
DX: Z79.01 Long term (current) use of anticoagulants (principal)

== ENCOUNTER → 2023-09-15 09:21 | Outpatient (BNVA) | payer MEDICARE, SELFPAY | PROVIDERS: PCP Internal Medicine; Visit Provider Internal Medicine | DX: I48.0 Paroxysmal atrial fibrillation (principal); Z79.01 Long term (current) use of anticoagulants; Z51.81 Encounter for therapeutic drug level monitoring | CPT/HCPCS: 85610; 99211 ==

== ENCOUNTER 2023-09-24 09:18 | Outpatient (AMB) | payer MEDICARE, SELFPAY ==
--- NOTE | 2023-09-24 09:28 | MHC.OFFVISCO ---
Intake Intake Visit Reasons: Anticoagulation Allergies isosorbide Adverse Reaction (Unknown, Verified 09/24/23 09:23) dizziness Medication List - Last Reconciled 09/24/23 by Sonya Tobar RN aspirin (Adult Aspirin Regimen) 81 mg PO DAILY atorvastatin 40 mg PO DAILY carvedilol 12.5 mg PO BID 90 days glipizide 10 mg PO BID lisinopril 10 mg PO DAILY magnesium oxide 400 mg PO DAILY metformin 1,000 mg PO BID warfarin See Protocol 5 mg orally OR PER INR; Nursing Note INR: 2.1- in therapeutic range of 2-3 Medications and supplements reviewed no changes No changes in health, diet, medications, or supplements, Denies any signs and symptoms of bleeding or bruising or clotting. 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
== END 2023-09-24 09:50 | disposition home or self-care (01) ==
LOC: HO.ACS 09:18
PROVIDERS: PCP Internal Medicine; Visit Provider Internal Medicine
DX: Z79.01 Long term (current) use of anticoagulants (principal)

== ENCOUNTER → 2023-09-24 09:18 | Outpatient (BNVA) | payer MEDICARE, SELFPAY | PROVIDERS: PCP Internal Medicine; Visit Provider Internal Medicine | DX: I48.0 Paroxysmal atrial fibrillation (principal); Z79.01 Long term (current) use of anticoagulants; Z51.81 Encounter for therapeutic drug level monitoring | CPT/HCPCS: 85610; 99211 ==

== ENCOUNTER 2023-10-08 08:56 | Outpatient (AMB) | payer MEDICARE, SELFPAY ==
--- NOTE | 2023-10-08 09:15 | MHC.OFFVISCO ---
Intake Intake Visit Reasons: Anticoagulation Allergies isosorbide Adverse Reaction (Unknown, Verified 10/08/23 09:11) dizziness Medication List - Last Reconciled 10/08/23 by Sonya Tobar RN aspirin (Adult Aspirin Regimen) 81 mg PO DAILY atorvastatin 40 mg PO DAILY carvedilol 12.5 mg PO BID 90 days glipizide 10 mg PO BID lisinopril 10 mg PO DAILY magnesium oxide 400 mg PO DAILY metformin 1,000 mg PO BID warfarin See Protocol 5 mg orally OR PER INR; Nursing Note INR: 2.4- in therapeutic range of 2-3 Medications and supplements reviewed- no changes No changes in health, diet, medications, or supplements, Denies any signs and symptoms of bleeding or bruising or clotting. 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
[2023-10-08 09:16] LABS: Prothrombin Time Whole Bld POC 28.5 sec (11.1-13.5); ~PT, ~INR - Anti Coag Clinic 2.4 (0.9-1.1)
== END 2023-10-08 09:21 | disposition home or self-care (01) ==
LOC: HO.ACS 08:56
PROVIDERS: PCP Internal Medicine; Visit Provider Internal Medicine
DX: Z79.01 Long term (current) use of anticoagulants (principal)

== ENCOUNTER → 2023-10-08 08:56 | Outpatient (BNVA) | payer MEDICARE, SELFPAY | PROVIDERS: PCP Internal Medicine; Visit Provider Internal Medicine | DX: I48.0 Paroxysmal atrial fibrillation (principal); Z79.01 Long term (current) use of anticoagulants; Z51.81 Encounter for therapeutic drug level monitoring | CPT/HCPCS: 85610; 99211 ==

== ENCOUNTER 2023-10-22 09:10 | Outpatient (AMB) | payer MEDICARE, SELFPAY ==
[2023-10-22 09:18] LABS: Prothrombin Time Whole Bld POC 29.4 sec (11.1-13.5); ~PT, ~INR - Anti Coag Clinic 2.5 (0.9-1.1)
--- NOTE | 2023-10-22 09:18 | MHC.OFFVISCO ---
Intake Intake Visit Reasons: Anticoagulation Allergies isosorbide Adverse Reaction (Unknown, Verified 10/22/23 09:10) dizziness Medication List - Last Reconciled 10/22/23 by Sherie Ramirez, RN aspirin (Adult Aspirin Regimen) 81 mg PO DAILY atorvastatin 40 mg PO DAILY carvedilol 12.5 mg PO BID 90 days glipizide 10 mg PO BID lisinopril 10 mg PO DAILY magnesium oxide 400 mg PO DAILY metformin 1,000 mg PO BID warfarin See Protocol 5 mg orally OR PER INR; Nursing Note INR: 2.5 in therapeutic range Medications and supplements reviewed- No changes in health, diet, medications, or supplements, Denies any signs and symptoms of bleeding or bruising or clotting. 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 Illness/Depression: Yes Coding Level of Care Code Est Patient Level 1 Diagnoses Current use of anticoagulant therapy Z79.01 Assessment & Plan Assessment & Plan (1) Current use of anticoagulant therapy: Code(s): Z79.01 - halfway (current) use of anticoagulants Category: Medical Medications: Changed From magnesium oxide 400 mg PO DAILY To magnesium oxide 200 mg PO BID
== END 2023-10-22 09:26 | disposition home or self-care (01) ==
LOC: HO.ACS 09:10
PROVIDERS: PCP Internal Medicine; Visit Provider Internal Medicine
DX: Z79.01 Long term (current) use of anticoagulants (principal)

== ENCOUNTER → 2023-10-22 09:10 | Outpatient (BNVA) | payer MEDICARE, SELFPAY | PROVIDERS: PCP Internal Medicine; Visit Provider Internal Medicine | DX: I48.0 Paroxysmal atrial fibrillation (principal); Z79.01 Long term (current) use of anticoagulants; Z51.81 Encounter for therapeutic drug level monitoring | CPT/HCPCS: 85610; 99211 ==

== ENCOUNTER 2023-11-12 09:00 | Outpatient (AMB) | payer MEDICARE, SELFPAY ==
[2023-11-12 09:20] LABS: Prothrombin Time Whole Bld POC 31.5 sec (11.1-13.5); ~PT, ~INR - Anti Coag Clinic 2.6 (0.9-1.1)
--- NOTE | 2023-11-12 09:25 | MHC.OFFVISCO ---
Intake Intake Visit Reasons: Anticoagulation Allergies isosorbide Adverse Reaction (Unknown, Verified 11/12/23 09:11) dizziness Medication List - Last Reconciled 11/12/23 by Sherie Khan RN aspirin (Adult Aspirin Regimen) 81 mg PO DAILY atorvastatin 40 mg PO DAILY carvedilol 12.5 mg PO BID 90 days glipizide 10 mg PO BID lisinopril 10 mg PO DAILY magnesium oxide 200 mg PO BID metformin 1,000 mg PO BID warfarin See Protocol 5 mg orally OR PER INR; Nursing Note Amb to ACS feeling well Medications and supplements reviewed, sts he will run out of warfarin on Wednesday, sts he went to PCP office to let them know he needed refill sts usual clinician no longer there and appointment made for April call to [facility] pharmacy- spoke with pharmacist- not refilled as too early per insurance, current script reads 1 pill daily reviewed with pharmacist pt current dosing 7.5mg x 3 days and 5mg x 4 days and 5mg strength tablet, he is going to need more than 1 tablet daily No other changes in health, diet, medications, or supplements Denies any unusual signs and symptoms of bruising, bleeding Denies any new Chest pain, SOB, or clotting INR: 2.6 in therapeutic range Nutritional guidance given: balance greens and reds in diet Dose: continue usual dosing as above- call placed to PCP- on hold for greater than 5 mins- instructed to pt I will try to reach them and get back to pt with results F/U INR: 3 weeks Patient verbalizes understanding of instructions given with accurate read back/ teach back of dosing Anti-Coag Initial Assessment Social Hx Patient Tobacco Use Status: Never used Tobacco alcohol intake: former Alcohol intake frequency: does not drink Cardiovascular Hx: HTN, Angina (NON CURRENT BUT DID WITH 4 HEART ATTACKS ), [place] (51 YEARS OLD, SEVERAL HEART ATTACKS, ), Arrhythmias (AFIB STARTED WARFARIN 4 YEARS AGO, WAS ON ELIQUIS BUT STOP DUE TO COST ), Cardiomyopathy and Other (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 Illness/Depression: Yes Coding Level of Care Code Est Patient Level 2 Diagnoses Current use of anticoagulant therapy Z79.01 Time Spent (min) 25 Assessment & Plan Assessment & Plan (1) Current use of anticoagulant therapy: Code(s): Z79.01 - [facility] (current) use of anticoagulants Category: Medical
== END 2023-11-12 09:40 | disposition home or self-care (01) ==
LOC: HO.ACS 09:00
PROVIDERS: PCP Internal Medicine; Visit Provider Internal Medicine
DX: Z79.01 Long term (current) use of anticoagulants (principal)

== ENCOUNTER → 2023-11-12 09:00 | Outpatient (BNVA) | payer MEDICARE, SELFPAY | PROVIDERS: PCP Internal Medicine; Visit Provider Internal Medicine | DX: I48.0 Paroxysmal atrial fibrillation (principal); Z79.01 Long term (current) use of anticoagulants; Z51.81 Encounter for therapeutic drug level monitoring | CPT/HCPCS: 85610; 99212 ==

== ENCOUNTER 2023-12-03 09:20 | Outpatient (AMB) | payer MEDICARE, SELFPAY ==
[2023-12-03 09:25] LABS: ~PT, ~INR - Anti Coag Clinic 2.3 (0.9-1.1)
--- NOTE | 2023-12-03 09:29 | MHC.OFFVISCO ---
Intake Intake Visit Reasons: Anticoagulation Allergies isosorbide Adverse Reaction (Unknown, Verified 12/03/23 09:20) dizziness Medication List - Last Reconciled 12/03/23 by Aster Gates RN aspirin (Adult Aspirin Regimen) 81 mg PO DAILY atorvastatin 40 mg PO DAILY carvedilol 12.5 mg PO BID 90 days glipizide 10 mg PO BID lisinopril 10 mg PO DAILY magnesium oxide 200 mg PO BID metformin 1,000 mg PO BID warfarin See Protocol 5 mg orally OR PER INR; Nursing Note INR: 2.3 in therapeutic range Medications and supplements reviewed No changes in health, diet, medications, or supplements, Denies any signs and symptoms of bleeding or bruising or clotting. 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
== END 2023-12-03 09:32 | disposition home or self-care (01) ==
LOC: HO.ACS 09:20
PROVIDERS: PCP Internal Medicine; Visit Provider Internal Medicine
DX: Z79.01 Long term (current) use of anticoagulants (principal)

== ENCOUNTER → 2023-12-03 09:20 | Outpatient (BNVA) | payer MEDICARE, SELFPAY | PROVIDERS: PCP Internal Medicine; Visit Provider Internal Medicine | DX: I48.0 Paroxysmal atrial fibrillation (principal); Z79.01 Long term (current) use of anticoagulants; Z51.81 Encounter for therapeutic drug level monitoring | CPT/HCPCS: 85610; 99211 ==

== ENCOUNTER 2023-12-24 09:02 | Outpatient (AMB) | payer MEDICARE, SELFPAY ==
[2023-12-24 09:10] LABS: Prothrombin Time Whole Bld POC 30.3 sec (11.1-13.5); ~PT, ~INR - Anti Coag Clinic 2.5 (0.9-1.1)
--- NOTE | 2023-12-24 09:10 | MHC.OFFVISCO ---
Intake Intake Visit Reasons: Anticoagulation Allergies isosorbide Adverse Reaction (Unknown, Verified 12/24/23 09:05) dizziness Medication List - Last Reconciled 12/24/23 by Sonya Tobar RN aspirin (Adult Aspirin Regimen) 81 mg PO DAILY atorvastatin 40 mg PO DAILY carvedilol 12.5 mg PO BID 90 days glipizide 10 mg PO BID lisinopril 10 mg PO DAILY magnesium oxide 200 mg PO BID metformin 1,000 mg PO BID warfarin See Protocol 5 mg orally OR PER INR; Nursing Note INR: 2.5- in therapeutic range of 2-3 Medications and supplements reviewed- no changes No changes in health, diet, medications, or supplements, Denies any signs and symptoms of bleeding or bruising or clotting. 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
== END 2023-12-24 09:17 | disposition home or self-care (01) ==
LOC: HO.ACS 09:02
PROVIDERS: PCP Internal Medicine; Visit Provider Internal Medicine
DX: Z79.01 Long term (current) use of anticoagulants (principal)

== ENCOUNTER → 2023-12-24 09:02 | Outpatient (BNVA) | payer MEDICARE, SELFPAY | PROVIDERS: PCP Internal Medicine; Visit Provider Internal Medicine | DX: I48.0 Paroxysmal atrial fibrillation (principal); Z79.01 Long term (current) use of anticoagulants; Z51.81 Encounter for therapeutic drug level monitoring | CPT/HCPCS: 85610; 99211 ==

== ENCOUNTER 2024-01-24 09:32 | Outpatient (AMB) | payer MEDICARE, SELFPAY ==
--- NOTE | 2024-01-24 10:10 | MHC.OFFVISCO ---
Intake Intake Visit Reasons: Anticoagulation Allergies isosorbide Adverse Reaction (Unknown, Verified 01/24/24 10:07) dizziness Medication List - Last Reconciled 01/24/24 by Sonya Tobar RN aspirin (Adult Aspirin Regimen) 81 mg PO DAILY atorvastatin 40 mg PO DAILY carvedilol 12.5 mg PO BID 90 days glipizide 10 mg PO BID lisinopril 10 mg PO DAILY magnesium oxide 200 mg PO BID metformin 1,000 mg PO BID warfarin See Protocol 5 mg orally OR PER INR; Nursing Note INR: 2.6- in therapeutic range of 2-3 Medications and supplements reviewed No changes in health, diet, medications, or supplements, Denies any signs and symptoms of bleeding or bruising or clotting. 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 Illness/Depression: Yes Coding Level of Care Code Est Patient Level 1 Diagnoses Current use of anticoagulant therapy Z79.01 Results AMB INR Fingerstick AMB INR Fingerstick 2.6 Last Edit by Sonya Tobar RN on 01/24/24 10:11 Assessment & Plan Assessment & Plan (1) Current use of anticoagulant therapy: Code(s): Z79.01 - alf (current) use of anticoagulants Category: Medical
[2024-01-24 10:11] LABS: Prothrombin Time Whole Bld POC 30.7 sec (11.1-13.5); ~PT, ~INR - Anti Coag Clinic 2.6 (0.9-1.1)
== END 2024-01-24 10:15 | disposition home or self-care (01) ==
LOC: HO.ACS 09:32
PROVIDERS: PCP Internal Medicine; Visit Provider Internal Medicine
DX: Z79.01 Long term (current) use of anticoagulants (principal)

== ENCOUNTER → 2024-01-24 09:32 | Outpatient (BNVA) | payer MEDICARE, SELFPAY | PROVIDERS: PCP Internal Medicine; Visit Provider Internal Medicine | DX: I48.0 Paroxysmal atrial fibrillation (principal); Z51.81 Encounter for therapeutic drug level monitoring; Z79.01 Long term (current) use of anticoagulants | CPT/HCPCS: 85610; 99211 ==

== ENCOUNTER 2024-02-18 08:43 | Outpatient (AMB) | payer MEDICARE, SELFPAY ==
[2024-02-18 09:21] LABS: Prothrombin Time Whole Bld POC 37.6 sec (11.1-13.5); ~PT, ~INR - Anti Coag Clinic 3.1 (0.9-1.1)
--- NOTE | 2024-02-18 09:32 | MHC.OFFVISCO ---
Intake Intake Visit Reasons: Anticoagulation Allergies isosorbide Adverse Reaction (Unknown, Verified 02/18/24 09:15) dizziness Medication List - Last Reconciled 02/18/24 by Sherie Ramirez, RN aspirin (Adult Aspirin Regimen) 81 mg PO DAILY atorvastatin 40 mg PO DAILY carvedilol 12.5 mg PO BID 90 days glipizide 10 mg PO BID lisinopril 10 mg PO DAILY magnesium oxide 200 mg PO BID metformin 1,000 mg PO BID warfarin See Protocol 5 mg orally OR PER INR; Nursing Note INR: 3.1out of therapeutic range of 2-3 Medications and supplements reviewed: no changes No changes in health, diet, medications, or supplements, Denies any signs and symptoms of bleeding or bruising or clotting. Bleeding, bruising, clotting discussed Food list reviewed with pt. Determinedthe higher INR today may be due to pt eating more dark chocolate lately. Pt will avoid that today but will have a serving of foods that lower the INR today. Then, pt will balance foods that raise and those that lower the INR. 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
== END 2024-02-18 09:36 | disposition home or self-care (01) ==
LOC: HO.ACS 08:43
PROVIDERS: PCP Internal Medicine; Visit Provider Internal Medicine
DX: Z79.01 Long term (current) use of anticoagulants (principal)

== ENCOUNTER → 2024-02-18 08:43 | Outpatient (BNVA) | payer MEDICARE, SELFPAY | PROVIDERS: PCP Internal Medicine; Visit Provider Internal Medicine | DX: I48.0 Paroxysmal atrial fibrillation (principal); Z79.01 Long term (current) use of anticoagulants; Z51.81 Encounter for therapeutic drug level monitoring | CPT/HCPCS: 85610; 99211 ==

== ENCOUNTER → 2024-03-17 09:01 | Outpatient (BNVA) | payer MEDICARE, SELFPAY | PROVIDERS: PCP Internal Medicine; Visit Provider Internal Medicine | DX: I48.0 Paroxysmal atrial fibrillation (principal); Z79.01 Long term (current) use of anticoagulants; Z51.81 Encounter for therapeutic drug level monitoring | CPT/HCPCS: 85610; 99211 ==

== ENCOUNTER 2024-03-20 17:04 | Inpatient (IN) | payer MEDICARE, SELFPAY ==
--- NOTE | ~2024-03-20 | XR_ITS ---
EXAMINATION: XR CHEST CLINICAL INFORMATION: Dizziness and weakness COMPARISON: Chest x-ray from 08/06/2023 TECHNIQUE: 2 views of the chest were obtained. FINDINGS: Heart is normal in size. Right subclavian AICD is in stable position. No acute vascular congestion. Postsurgical changes overlying the mediastinum. Coronary calcifications are present. Lung parenchyma is clear. XR/XR chest 2V IMPRESSION: No acute process
--- NOTE | ~2024-03-20 | CT_ITS ---
EXAMINATION: CT HEAD WITHOUT CONTRAST CLINICAL INFORMATION: Weakness. Recent falls. COMPARISON: CT head from 10/09/2019. TECHNIQUE: Contiguous axial imaging was performed from the skull base to vertex without intravenous administration of contrast. This CT examination was performed using dose optimization techniques as appropriate, variously including the following: *Automated exposure control. *Adjustment of mA and/or kV according to patient size (this includes techniques or standardized protocols for targeted exams where dose is matched to indication/reason for exam; i.e. extremities or head). *Use of iterative reconstruction technique. DLP: 684 mGy-cm FINDINGS: There is no evidence of acute intracranial hemorrhage or edematous territorial infarction. Albert-white matter differentiation is preserved. Scattered and partially confluent hypoattenuation in the periventricular and deep white matter are consistent with moderate microangiopathy. Proportional prominence of the ventricles and sulcal spaces without evidence of obstructive hydrocephalus. No abnormal mass effect or midline shift. No extra-axial fluid collections. Calcific atherosclerotic disease of the intracranial internal carotid and vertebral arteries. No hyperdense vessel sign. No acute soft tissue or osseous abnormalities. Mild mucosal thickening of the paranasal sinuses. The mastoid air cells and middle ear cavities are clear. Chronic depression of the right lamina papyracea with deviation of the right superior oblique rectus muscle into the fracture defect. CT/CT head/brain wo IV con IMPRESSION: 1. No evidence of acute intracranial hemorrhage or edematous territorial infarction. 2. Moderate underlying microangiopathy and generalized cerebral volume loss.
--- NOTE | 2024-03-20 17:46 | ECG_ITS ---
Test Reason : WEAKNESS Blood Pressure : / mmHG Vent. Rate : 059 BPM Atrial Rate : 059 BPM P-R Int : 000 ms QRS Dur : 100 ms QT Int : 438 ms P-R-T Axes : 000 020 186 degrees QTc Int : 433 ms Atrial-paced rhythm ST & T wave abnormality, consider inferolateral ischemia Abnormal ECG When compared with ECG of 06-AUG-2023 10:31, No significant changes seen Referred By: Alina Reyna Electronically Signed By:PATRICIA CARBAJAL
--- NOTE | 2024-03-20 17:49 | ED_ITS ---
HPI - General Adult General Chief complaint: Weakness Stated complaint: weakness,dizzy Time Seen by Provider: 03/20/24 17:13 Source: patient, family and EMS Mode of arrival: EMS Limitations: no limitations History of Present Illness HPI narrative: Patient is an 83-year-old male who presents emergency department via EMS with daughter at bedside for evaluation of generalized weakness intermittent dizziness poor appetite and nausea. Onset of symptoms 3 days ago. Daughter reports that he is unable to walk more than a few steps at home without requiring assistance which is atypical for him. He reports feeling weak, with pain and cramping to the bilateral thighs when walking. She states that 1.5 weeks ago she was called by his doctor was advised that his magnesium was low, he is prescribed magnesium oxide 400 mg twice daily which he has been compliant with. She expresses concern that his magnesium may be even causing him to feel this way. She does state that he has had a few falls over the past 6 months but none recently. Denies fevers, chills, headache, neck pain, neck stiffness, chest pain, shortness of breath, vomiting, abdominal pain, genitourinary symptoms, numbness or tingling of the extremities. Related Data Home Medications ?Medication ?Instructions ?Recorded ?Confirmed aspirin 81 mg tablet,delayed 81 mg PO DAILY 06/14/23 03/21/24 release (Adult Aspirin Regimen) lisinopril 10 mg tablet 10 mg PO DAILY 06/14/23 03/21/24 warfarin 5 mg tablet 5 mg PO .COMPLEX 06/14/23 03/21/24 metformin 500 mg tablet 1,000 mg PO BID 07/08/23 03/21/24 magnesium oxide 400 mg (241.3 mg 400 mg PO BID 10/22/23 03/21/24 magnesium) tablet carvedilol 12.5 mg tablet 12.5 mg PO DAILY 03/21/24 03/21/24 furosemide 20 mg tablet 20 mg PO DAILY 03/21/24 03/21/24 Previous Rx's ?Medication ?Instructions ?Recorded glipizide 10 mg tablet 10 mg PO BID #180 tabs 07/29/20 atorvastatin 40 mg tablet 40 mg PO DAILY #90 tabs 10/16/20 Allergies Allergy/AdvReac Type Severity Reaction Status Date / Time isosorbide AdvReac Unknown dizziness Verified 03/20/24 18:17 Review of Systems 2 Review of Systems: Yes all other systems are reviewed and are negative [facility] Past Medical History Attestation statement: The following information was validated with the patient. Medical History History of alcohol abuse Ischemic cardiomyopathy with implantable cardioverter-defibrillator (ICD) Hyperlipidemia HTN (hypertension) Diabetes mellitus CAD (coronary artery disease) Atrial fibrillation Social History Social History Housing: House Housing Other:: [employer] Alcohol intake: former Patient Tobacco Use Status: Never used Tobacco Smoked in Last 30 Days: No Use of substances other than those prescribed or required for medical reasons: No Advance Directives: Yes Advance Directives on File: Yes Advance Directives Date on File: 08/16/23 Do you have a plan to hurt others: No Plan Nutrition Risks: No Nutritional Risk service: No Current occupation: RETIRED 20 YEARS Current occupational exposures/hazards: No Physical Exam ED Vital Signs: Vital Signs - 24 hr 03/20/24 18:14 03/20/24 18:18 03/20/24 19:44 Temperature 97.3 F 97.3 F Pulse Rate 66 66 62 Respiratory Rate 16 16 Blood Pressure 119/57 L 119/57 L 125/57 L Pulse Oximetry 98 98 Oxygen Delivery Method Room Air Room Air 03/20/24 19:44 03/20/24 19:45 Temperature Pulse Rate 63 71 Respiratory Rate Blood Pressure 119/53 L 118/49 L Pulse Oximetry Oxygen Delivery Method BMI result Body Mass Index 23.3 Appearance: Alert.?Oriented to person, place and time. No acute distress.?Normal affect. Eyes: Pupils equal, round and reactive to light.? ENT: Pharynx normal.?? Neck: Normal inspection.? Neck supple.?? CVS: Heart sounds normal. Normal heart rate and rhythm.? Pulses normal.?? Respiratory: No respiratory distress.? Lung sounds clear to auscultation bilaterally?? Abdomen: Soft and non-tender. Normoactive bowel sounds. Skin: Skin warm and dry.? Normal skin color.? Extremities: No lower extremity edema.? No calf ttp? Neuro: No focal neurological deficit observed, CN II-XII intact, normal sensory observed, normal coordination observed. Level of consciousness: Appropriate for age. Motor strength: right upper extremity 5 /5, left upper extremity 5 /5, right lower extremity 5 /5, left lower extremity 5 /5.?Speech: Normal, Gait: Unsteady. [id number] test: Normal, [id number]-[id number] test: Normal. Course Reevaluation(s) Reevaluation #1: Leukopenia, normocytic anemia with hemoglobin/hematocrit 7.7/23.1, which is down 3 points when compared to prior levels in July of 2023. Is anticoagulated on Coumadin, no active source of bleeding. Attempted to obtain occult stool sample patient however declines, he states that he will attempt to have a bowel movement for specimen to be obtained, when asked he denies hematochezia or melena. Concern for GI bleed, plan for transfusing 1 unit PRBC been admit to medicine service, spoke with hospitalist Dr. Wallace who accepts patient for admission. Medications Administered Generic Name Dose Route Start Last Admin Trade Name Freq PRN Reason Stop Dose Admin Carvedilol 12.5 mg 03/21/24 09:40 03/21/24 11:30 Carvedilol 12.5 Mg Tablet PO 12.5 mg DAILY DEMETRIUS Administration Protocol Insulin Human Lispro 0 unit 03/21/24 11:30 03/21/24 13:34 Insulin Lispro 100 Unit/Ml 3 Ml Vial SUBCUT Not Given [facility] Protocol Pantoprazole Sodium 40 mg 03/20/24 20:30 03/21/24 06:28 Pantoprazole Sodium 40 Mg/10 Ml Vial IVPUSH 40 mg BID@0630,1630 DEMETRIUS Administration Sodium Chloride 3 ml 03/21/24 00:00 03/21/24 09:14 0.9 % Sodium Chloride Flush 3 Ml Syringe IVFLUSH 3 ml QSHIFT DEMETRIUS Administration Discontinued Medications Generic Name Dose Route Start Last Admin Trade Name Freq PRN Reason Stop Dose Admin Sodium Chloride 100 mls @ 100 mls/hr 03/20/24 20:23 03/21/24 02:43 Ns IV 03/20/24 21:22 Infused ONCE ONE Infusion Magnesium Sulfate 2 gm in 50 mls @ 25 mls/hr 03/20/24 20:37 03/20/24 23:04 Magnesium Sulfate/H2o IV 03/20/24 22:36 Infused ONCE ONE Infusion Phytonadione 10 mg/ Sodium 51 mls @ 51 mls/hr 03/21/24 14:30 03/21/24 15:00 Chloride IV 03/21/24 15:29 51 mls/hr ONCE ONE Administration Polyethylene Glycol/Electrolytes 4,000 ml 03/21/24 13:45 03/21/24 15:47 Peg 3350/Na Sulf,Bicarb,Cl/Kcl 4,000 Ml Soln.Recon PO 03/21/24 13:46 4,000 ml ONCE ONE Administration Medical Decision Making Medical Decision Making [facility] Narrative: Patient is an 83-year-old male with past medical history CHF s/p AICD, PAF on coumadin, HTN, HLD, DM, CAD s/p CABG in 2008 with SOLANO to LAD and SVG to RPDA/RPL, ischemic cardiomyopathy EF 40% who presents emergency department for evaluation of generalized weakness intermittent dizziness as per HPI. Overall he appears fatigued, no respiratory distress. He is speaking clear full sentences. No focal neurological deficits on examination. Will obtain CBC to evaluate for leukocytosis/ anemia, CMP and lipase to evaluate for abnormal electrolytes /abnormal renal function/ abnormal hepatic/biliary function, EKG and troponin to evaluate for ischemia/ACS. CT head, Chest x-ray to evaluate for consolidation/ infiltrate/ mass/ pulmonary congestion and Urinalysis. Differential Diagnosis Differential Diagnoses: The differential diagnosis associated with the presentation includes (Arrhythmia, anemia, electrolyte abnormality, ALTA, dehydration, suspect less likely CVA, cerebellar function testing is normal.) Admission/Observation Consideration of admission/observation: Escalation of care including admission/observation considered Lab Data [facility] Lab Attestation statement: I reviewed the patient's lab results. (See course narrative) 03/21/24 05:44 03/21/24 05:44 Labs: Lab Results 03/20/24 Range/Units 18:27 WBC 4.7 L (4.8-10.8) X10*3/uL RBC 2.62 L D (4.60-5.80) X10*6/uL Hgb 7.7 L D (14.0-18.0) g/dl Hct 23.1 L D (42.0-52.0) % MCV 88.2 (80.0-98.0) fL MCH 29.4 (27.0-33.0) pg MCHC 33.3 (31.0-36.0) g/dl RDW 14.8 (11.0-16.0) % Plt Count 178 (160-400) X10*3/uL MPV 9.6 (9.4-12.4) fL Immature Gran % (Auto) 0.2 (0.0-0.4) % Neut % (Auto) 68.8 (45-73) % Lymph % (Auto) 20.7 (20-40) % Grant % (Auto) 9.1 (2-11) % Eos % (Auto) 0.8 (0-4) % Baso % (Auto) 0.4 (0-2) % Lymph # (Auto) 1.0 L (1.2-4.9) X10*3/uL Grant # (Auto) 0.4 (0.1-1.2) X10*3/uL Eos # (Auto) 0.0 (0.0-0.4) X10*3/uL Baso # (Auto) 0.0 (0.0-0.2) X10*3/uL Abs Immat Gran (auto) 0.01 (0.00-0.03) X10*3/uL Absolute Neuts (auto) 3.3 (2.0-8.3) x10*3/uL Absolute Nucleated RBC 0.000 (0.0-0.012) X10*3/uL Nucleated RBC % (auto) 0.0 (0.0-0.2) /100WBC PT 30.9 H (11.1-13.3) SEC INR 2.5 H (0.9-1.1) Sodium 135 (135-145) mmol/L Potassium 4.5 (3.3-5.1) mmol/L Chloride 103 (96-108) mmol/L Carbon Dioxide 23 (22-29) mmol/L Anion Gap 14 (12-20) BUN 31 H (9-16) mg/dL Creatinine 1.13 (0.5-1.4) mg/dL Estim Creat Clear Calc 43.0 Estimated GFR > 60 Random Glucose 197 H (60-115) mg/dL Calcium 9.6 (8.4-10.2) mg/dL Magnesium 1.5 L (1.6-2.6) mg/dL Iron 16 L (45-160) mcg/dL TIBC 225 L (228-428) mcg/dL % Saturation 7 L (15-50) % Unsat Iron Binding 209 ug/dL Ferritin 9 L (20-250) ng/mL Total Bilirubin 0.3 (0.0-1.0) mg/dL AST 25 (5-37) U/L ALT 22 (0-40) U/L Alkaline Phosphatase 80 (39-117) U/L Total Creatine Kinase 55 (38-174) U/L Troponin I High Sens 8.0 (<3.5-35.0) ng/L Total Protein 6.1 L (6.5-8.0) g/dL Albumin 3.6 (3.5-5.0) g/dL Lipase 45 (8-78) U/L Influenza Type A (PCR) NEGATIVE (Negative) Influenza Type B (PCR) NEGATIVE (Negative) RSV RNA Qual (PCR) NEGATIVE (Negative) SARS-CoV-2 RNA (RT-PCR) NEGATIVE (Negative) Independent Interpretation I performed an independent interpretation of an: EKG Interpretation: Rate: 59 Rhythm:? Atrial paced [place]:? Normal P waves.? Normal DK.?? Normal QRS complex.?? ST T wave :??T-wave inversion lead I, aVL, V4-V6 The study has been interpreted contemporaneously by me. Independent Historian Clinical information obtained from an independent historian. History obtained from or confirmed by: EMS and Other (Daughter present who confirms history) Critical Care Time Critical Care Time Critical Care Time: Yes Total Critical Care Time: 35 Attestation: I personally attest to this critical care time spent taking care of the patient exclusive of all other billable procedures was approximately 35 minutes including initial evaluation of patient, ordering tests, PRBC transfusion, EKG interpretation, medical consultation, documentation, re-evaluation. Discharge Plan Discharge Clinical Impression: Acute anemia, Hypomagnesemia, Weakness Patient Disposition: Admitted As Inpatient
[2024-03-20 18:14] VITALS: BP 119/57; BP 133/89; PULSE 66; PULSE 72; RESP 16; TEMP 36.3; O2SAT 97; O2SAT 98; BMI 23.3
[2024-03-20 18:18] VITALS: BP 119/57; PULSE 66; RESP 16; TEMP 36.3; O2SAT 98
[2024-03-20 18:31] LABS: MANUAL DIFF FLAG NO
[2024-03-20 18:37] LABS: Basophils Percent Auto 0.4 % (0-2); Eosinophils Percent Auto 0.8 % (0-4); Hematocrit 23.1 % (42.0-52.0); Hemoglobin 7.7 g/dl (14.0-18.0); Imm Gran Abs Auto 0.01 X10*3/uL (0.00-0.03); Imm Gran Pct Auto 0.2 % (0.0-0.4); Lymphocytes Percent Auto 20.7 % (20-40); Mean Corpuscular HGB Conc 33.3 g/dl (31.0-36.0); Mean Corpuscular Hemoglobin 29.4 pg (27.0-33.0); Mean Corpuscular Volume 88.2 fL (80.0-98.0); Mean Platelet Volume 9.6 fL (9.4-12.4); Monocytes Absolute Auto 0.4 X10*3/uL (0.1-1.2); Monocytes Percent Auto 9.1 % (2-11); Neutrophils Absolute Auto 3.3 x10*3/uL (2.0-8.3); Neutrophils Percent Auto 68.8 % (45-73); Platelet Count 178 X10*3/uL (160-400); Red Blood Count 2.62 X10*6/uL (4.60-5.80); Red Cell Distribution Width 14.8 % (11.0-16.0); White Blood Count 4.7 X10*3/uL (4.8-10.8)
[2024-03-20 18:43] LABS: INTERNATIONAL NORM RATIO 2.5 (0.9-1.1); Prothrombin Time 30.9 SEC (11.1-13.3)
[2024-03-20 18:48] LABS: Alanine Aminotransferase 22 U/L (0-40); Albumin Level 3.6 g/dL (3.5-5.0); Alkaline Phosphatase 80 U/L (39-117); Anion Gap 14 (12-20); Aspartate Amino Transferase 25 U/L (5-37); Bilirubin Total 0.3 mg/dL (0.0-1.0); Blood Urea Nitrogen 31 mg/dL (9-16); Calcium 9.6 mg/dL (8.4-10.2); Carbon Dioxide 23 mmol/L (22-29); Chloride 103 mmol/L (96-108); Estimated Glomerular Filt Rate > 60; Glucose Random 197 mg/dL (60-115); Lipase 45 U/L (8-78); Magnesium 1.5 mg/dL (1.6-2.6); Potassium 4.5 mmol/L (3.3-5.1); Sodium 135 mmol/L (135-145); Total Protein 6.1 g/dL (6.5-8.0)
--- OUTSIDE RECORDS SUMMARY | 2024-03-20 19:13 | XMS_ITS | Continuity of Care Document ---
Author Organization [facility] Address [address] [place] [address]- Care Team Providers Care Mig Tig Welder Name Role Phone Troy GUNDERSON, Yessenia Primary Care Physician Encounter [facility] Date(s): 09/22/22 - 10/22/22 [facility] [address] [place], [place] [address] Allergies, Adverse Reactions, Alerts No Known Allergies Immunizations Given and Recorded Vaccine Date Status Refusal Reason [id number] 12y+ bivalent booster vax 07/29/22 Given influenza virus vaccine, inactivated 07/29/22 Give n influenza virus vaccine, inactivated 1 07/17/21 Gi ada SARS-CoV-2 (COVID-19) mRNA-1273 vaccine 08/30/21 R ecorded SARS-CoV-2 (COVID-19) mRNA-1273 vaccine 01/04/21 R ecorded SARS-CoV-2 (COVID-19) mRNA-1273 vaccine 11/29/20 R ecorded zoster vaccine, inactivated 07/31/20 Recorded Pneumococcal Vaccine (oldterm) 11/29/07 Given 1Result Comment: Patient tollerated well Medications Ascriptin Enteric 81 mg, By Mouth, Daily, Refills 0, Tot. Refills 0, 11/16/07 18:08:35 Start Date: 11/16/07 Status: Ordered atorvastatin 40 mg oral tablet 1 tablet = 40 mg, By Mouth, Daily, # 90 tablet, 11 Refills, Maintenance, 10/06/22 9:10:00 EST, Tablet, [facility], Partial fill upon patient request if the prescription is for a schedule II opioid drug., 166, cm, 10/06/22 8:31:00 E... Start Date: 10/06/22 Status: Ordered carvedilol 12.5 mg oral tablet 12.5 mg, 1, tablet, By Mouth, 2 times a day, # 180 tablet, Refills 11, Tot. Refills 11, Maintenance, 09/23/22 8:45:00 EST, Route to Pharmacy Electronically, [facility], Partial fill upon patient request if the prescription is for a... Start Date: 09/23/22 Status: Ordered ciclopirox 0.77% topical cream 1 application, Topically, 2 times a day, # 30 Gm, 0 Refills, Maintenance, 01/21/21 9:18:00 EDT, Cream, [id number], Partial fill upon patient request if the prescription is for a schedule II opioid drug., 1 application Topically 2 times a day,... Start Date: 01/21/21 Status: Ordered Eliquis 5 mg oral tablet 1 tablet = 5 mg, By Mouth, 2 times a day, TAKE 1 TABLET BY MOUTH TWICE A DAY, # 180 tablet, 11 Refills, Maintenance, 06/21/22 21:34:00 EDT, Tablet, [id number], Partial fill upon patient request if the prescription is for a schedule II opioid... Start Date: 06/21/22 Status: Ordered glipiZIDE 10 mg oral tablet 1 tablet = 10 mg, By Mouth, 2 times a day, # 180 tablet, 11 Refills, Maintenance, 09/22/22 16:41:00EST, Tablet, [facility], Partial fill upon patient request if the prescription is for a schedule II opioid drug., 166, cm, 03/30/22... Start Date: 09/22/22 Status: Ordered lisinopril 10 mg oral tablet 10 mg, 1, tablet, By Mouth, Daily, # 90 tablet, Refills 11, Tot. Refills 11, Maintenance, 10/06/22 9:12:00 EST, Route to Pharmacy Electronically, [facility], Partial fill upon patient request if the prescription is for a schedule I... Start Date: 10/06/22 Status: Ordered metFORMIN 500 mg oral tablet 2 tablet = 1,000 mg, By Mouth, 2 times a day, # 120 tablet, 11 Refills, Maintenance, 10/06/22 9:08:00 EST, Tablet, [facility], Partial fill upon patient request if the prescription is for a schedule II opioid drug., 166, cm, ... Start Date: 10/06/22 Status: Ordered Nitrostat 0.4 mg sublingual tablet 1 tablet = 0.4 mg, Sublingual, Every 5 minutes, PRN Chest Pain, # 100 tablet, 0 Refills, Maintenance, 11/03/19 16:02:00 EST, [facility]t, [id number], 166, cm, 11/03/19 15:28:00 EST, Height, 65.3,kg, 11/01/19 22:48:00 EST, Dry Weight Start Date: 11/03/19 Stop Date: 12/03/19 Status: Ordered Problem List Condition Confirmation Course Effective Dates Status H ealth Status Informant Atrial fibrillation Confirmed Active Diabetes mellitus Confirmed Active Ischemic cardiomyopathy Confirmed Active Hyperlipidemia Confirmed Active Hypertension Confirmed Active Social History Social History Type Response Smoking Status Never smoker entered on: 02/12/16 Sex Patient Care team information Care Team Personnel Name: Yessenia Simmons MD Position: [facility] Primary Care Physician Member Role: PCP Address: Address: [address] [place] [address] Adult [facility] [place] [address]- Care Team Related Persons Name: MARK WELLINGTON Address: home [address] [place] [address] Name: FANY CASE Address: home [address] [place] [address]
--- OUTSIDE RECORDS SUMMARY | 2024-03-20 19:13 | XMS_ITS | Continuity of Care Document ---
Author Organization [facility] Address [address] [place] [id number]- Care Team Providers Care Production Support Specialist Name Role Phone Yessenia Simmons MD Primary Care Physician [phone] [place] [facility] [place] [facility] [address] [place] [address]- Attending Physician: David GUNDERSON, Ravinder Toussaint Admitting Physician: David GUNDERSON, Ravinder Toussaint Referring Physician: Yessenia Simmons MD Allergies, Adverse Reactions, Alerts No Known Allergies Immunizations Given and Recorded Vaccine Date Status Refusal Reason influenza virus vaccine, inactivated 1 07/17/21 Gi ada SARS-CoV-2 (COVID-19) mRNA-1273 vaccine 01/04/21 R ecorded SARS-CoV-2 (COVID-19) mRNA-1273 vaccine 11/29/20 R ecorded Pneumococcal Vaccine (oldterm) 11/29/07 Given 1Result Comment: Patient tollerated well Medications Ascriptin Enteric 81 mg, By Mouth, Daily, Refills 0, Tot. Refills 0, 11/16/07 18:08:35 Start Date: 11/16/07 Status: Ordered atorvastatin 40 mg oral tablet 1 tablet = 40 mg, By Mouth, Daily, # 90 tablet, 11 Refills, Maintenance, 07/17/21 10:05:00 EDT, Tablet, [id number], Partial fill upon patient request if the prescription is for a schedule IIopioid drug., 166, cm, 07/17/21 9:36:00 EDT, Height... Start Date: 07/17/21 Status: Ordered carvedilol 12.5 mg oral tablet 12.5 mg, 1, tablet, By Mouth, 2 times a day, # 180 tablet, Refills 11, Tot. Refills 11, Maintenance, 07/17/21 10:05:00 EDT, Route to Pharmacy Electronically, [id number], Partial fill upon patient request if the prescription is for a schedule... Start Date: 07/17/21 Status: Ordered ciclopirox 0.77% topical cream 1 application, Topically, 2 times a day, # 30 Gm, 0 Refills, Maintenance, 01/21/21 9:18:00 EDT, Cream, [id number], Partial fill upon patient request if the prescription is for a schedule II opioid drug., 1 application Topically 2 times a day,... Start Date: 01/21/21 Status: Ordered Eliquis 5 mg oral tablet 1 tablet = 5 mg, By Mouth, 2 times a day, for 90 days, TAKE 1 TABLET BY MOUTH TWICE A DAY, # 180 tablet, 3 Refills, Hard Stop 06/21/22 21:34:00 EDT, 06/26/21 21:34:00 EDT, [facility]t, [id number], Partial fill upon patient request if the prescript... Start Date: 06/26/21 Stop Date: 06/21/22 Status: Ordered Eliquis 5 mg oral tablet 1 tablet = 5 mg, By Mouth, 2 times a day, TAKE 1 TABLET BY MOUTH TWICE A DAY, # 180 tablet, 11 Refills, Maintenance, 06/21/22 21:34:00 EDT, [facility]t, [id number], Partial fill upon patient request if the prescription is for a schedule II opioid... Start Date: 06/21/22 Status: Ordered glipiZIDE 10 mg oral tablet 1 tablet = 10 mg, By Mouth, 2 times a day, for 90 days, # 180 tablet, 3 Refills, Hard Stop 06/21/2221:35:00 EDT, 06/26/21 21:35:00 EDT, [facility]t, [id number], Partial fill upon patient requestif the prescription is for a schedule II opioid shi... Start Date: 06/26/21 Stop Date: 06/21/22 Status: Ordered glipiZIDE 10 mg oral tablet 1 tablet = 10 mg, By Mouth, 2 times a day, # 180 tablet, 11 Refills, Maintenance, 06/21/22 21:35:00EDT, [facility]t, [id number], Partial fill upon patient request if the prescription is for a schedule II opioid drug., 166, cm, 04/11/21 8:31:00 ED... Start Date: 06/21/22 Status: Ordered lisinopril 10 mg oral tablet 10 mg, 1, tablet, By Mouth, Daily, # 90 tablet, Refills 6, Tot. Refills 6, Maintenance, 04/11/21 8:49:00 EDT, Route to Pharmacy Electronically, [id number], Partial fill upon patient request if the prescription is for a schedule II opioid drug... Start Date: 04/11/21 Status: Ordered metFORMIN 500 mg oral tablet 2 tablet = 1,000 mg, By Mouth, 2 times a day, # 120 tablet, 3 Refills, Maintenance, 11/11/20 15:58:00 EST, [facility]t, [id number], Partial fill upon patient request if the prescription is for a schedule II opioid drug., 166, cm, 11/03/19 15:28:00... Start Date: 11/11/20 Status: Ordered Nitrostat 0.4 mg sublingual tablet 1 tablet = 0.4 mg, Sublingual, Every 5 minutes, PRN Chest Pain, # 100 tablet, 0 Refills, Maintenance, 11/03/19 16:02:00 EST, Tablet, [id number], 166, cm, 11/03/19 15:28:00 EST, Height, 65.3,kg, 11/01/19 22:48:00 EST, Dry Weight Start Date: 11/03/19 Stop Date: 12/03/19 Status: Ordered Problem List Condition Effective Dates Status Health Status Inform ant Atrial fibrillation(Confirmed) Active Diabetes mellitus(Confirmed) Active Ischemic cardiomyopathy(Confirmed) Active Hyperlipidemia(Confirmed) Active Hypertension(Confirmed) Active Diabetic neuropathy(Confirmed) Active Social History Social History Type Response Smoking Status Never smoker entered on: 02/12/16 Sex
--- OUTSIDE RECORDS SUMMARY | 2024-03-20 19:13 | XMS_ITS | Continuity of Care Document ---
Author Organization [facility] Address [address] [place] [address]- Care Team Providers Care District Sales Coordinator Name Role Phone Troy GUNDERSON, Yessenia Primary Care Physician Encounter [facility] ACCT R [id number] Date(s): 08/19/23 - 09/22/23 [facility] [address] [place], [place] [address] Attending Physician: Analisa Burr NP Allergies, Adverse Reactions, Alerts No Known Allergies Immunizations Given and Recorded Vaccine Date Status Refusal Reason influenza virus vaccine, inactivated 1 08/03/23 Gi ada influenza virus vaccine, inactivated 07/29/22 Give n influenza virus vaccine, inactivated 2 07/17/21 Gi ada tetanus-diphtheria toxoids (Td) 3 04/29/23 Given [id number] 12y+ bivalent booster vax 07/29/22 Given SARS-CoV-2 (COVID-19) mRNA-1273 vaccine 08/30/21 R ecorded SARS-CoV-2 (COVID-19) mRNA-1273 vaccine 01/04/21 R ecorded SARS-CoV-2 (COVID-19) mRNA-1273 vaccine 11/29/20 R ecorded zoster vaccine, inactivated 07/31/20 Recorded Pneumococcal Vaccine (oldterm) 11/29/07 Given 1Result Comment: [facility] 98270-344-39 2Result Comment: Patient tollerated well 3Result Comment: [facility] [address]-4 Medications Ascriptin Enteric 81 mg, By Mouth, Daily, Refills 0, Tot. Refills 0, 11/16/07 18:08:35 Start Date: 11/16/07 Status: Ordered atorvastatin 40 mg oral tablet 1 tablet = 40 mg, By Mouth, Daily, # 90 tablet, 11 Refills, Maintenance, 10/06/22 9:10:00 EST, Tablet, [facility], Partial fill upon patient request if the prescription is for a schedule II opioid drug., 166, cm, 10/06/22 8:31:00 E... Start Date: 10/06/22 Status: Ordered carvedilol 25 mg oral tablet 25 mg, 1, tablet, By Mouth, 2 times a day, # 180 tablet, Refills 0, Tot. Refills 0, Maintenance, 02/10/23 8:50:00 EDT, Route to Pharmacy Electronically, [facility]/pharmacy #[id number], Partial fill upon patient request if the prescription is for a schedule II opi... Start Date: 02/10/23 Status: Ordered glipiZIDE 10 mg oral tablet 1 tablet = 10 mg, By Mouth, 2 times a day, # 180 tablet, 11 Refills, Maintenance, 09/22/22 16:41:00EST, Tablet, [facility], Partial fill upon patient request if the prescription is for a schedule II opioid drug., 166, sanju, 03/30/22... Start Date: 09/22/22 Status: Ordered lisinopril 10 mg oral tablet 10 mg, 1, tablet, By Mouth, Daily, # 90 tablet, Refills 1, Tot. Refills 1, Maintenance, 07/28/23 17:39:00 EST, Route to Pharmacy Electronically, [facility]/pharmacy #[id number], did not tolerate 20 mg dose;, 164.03, cm, 04/29/23 9:31:00 EDT, Height, 55.6, kg, 01/19... Start Date: 07/28/23 Stop Date: 01/24/24 Status: Ordered metFORMIN 500 mg oral tablet 2 tablet = 1,000 mg, By Mouth, 2 times a day, # 120 tablet, 11 Refills, Maintenance, 10/06/22 9:08:00 EST, Tablet, [facility], Partial fill upon patient request if the prescription is for a schedule II opioid drug., 166, cm, ... Start Date: 10/06/22 Status: Ordered Nitrostat 0.4 mg sublingual tablet 1 tablet = 0.4 mg, Sublingual, Every 5 minutes, PRN Chest Pain, # 100 tablet, 0 Refills, Maintenance, 11/03/19 16:02:00 EST, [facility]t, [id number], 166, cm, 11/03/19 15:28:00 EST, Height, 65.3,kg, 11/01/19 22:48:00 EST, Dry Weight Start Date: 11/03/19 Stop Date: 12/03/19 Status: Ordered pioglitazone 30 mg oral tablet 1 tablet = 30 mg, By Mouth, Daily, in addition to metformin and glipizide, # 90 tablet, 0 Refills, Maintenance, 08/03/23 9:08:00 EST, Tablet, [id number], Partial fill upon patient request if the prescription is for a schedule II opioid drug.,... Start Date: 08/03/23 Stop Date: 11/01/23 Status: Ordered Problem List Condition Confirmation Course Effective Dates Status H ealth Status Informant Atrial fibrillation Confirmed Active Diabetes mellitus Confirmed Active Ischemic cardiomyopathy Confirmed Active Hyperlipidemia Confirmed Active Hypertension Confirmed Active Social History Social History Type Response Smoking Status Never smoker entered on: 02/12/16 Sex Patient Care team information Care Team Personnel Name: Barbi Rios RN Position: S RN Member Role: Primary Care Nurse Name: Shantal Garcia Position: S RN Member Role: Primary Care Nurse Name: Lisha Cardenas Position: S RN Member Role: Primary Care Nurse Name: Aster Ellison RN Position: S RN Member Role: Primary Care Nurse Name: Yesy Hylton RN Position: S RN Member Role: Primary Care Nurse Name: Yessenia iSmmons MD Position: [facility] Physician - Primary Care Member Role: PCP Address: Address: [address] [place] [address] Adult & Pediatric Medicine [place], [place] [address] Name: Kati Gordon RN Position: S RN Member Role: Primary Care Nurse Care Team Related Persons Name: MARK WELLINGTON Address: home [address] [place] [address] Name: FANY CASE Address: home [address] [place] [address]
--- OUTSIDE RECORDS SUMMARY | 2024-03-20 19:13 | XMS_ITS | Continuity of Care Document ---
Author Organization [facility] [place] [facility] Address [address] [place] [address]- Care Team Providers Care Drawing In Machine Tender Name Role Phone Troy GUNDERSON, Yessenia Primary Care Physician Encounter [facility] Date(s): 08/17/23 - 09/16/[address] [facility] [place] [facility] [address] [place], [place] [address] Allergies, Adverse Reactions, Alerts No Known Allergies Immunizations Given and Recorded Vaccine Date Status Refusal Reason influenza virus vaccine, inactivated 1 08/03/23 Gi ada influenza virus vaccine, inactivated 07/29/22 Give n influenza virus vaccine, inactivated 2 07/17/21 Gi ada tetanus-diphtheria toxoids (Td) 3 04/29/23 Given [id number] 12y+ bivalent booster vax 07/29/22 Given SARS-CoV-2 (COVID-19) mRNA-1273 vaccine 08/30/21 R ecorded SARS-CoV-2 (COVID-19) mRNA-1273 vaccine 01/04/21 R ecorded SARS-CoV-2 (COVID-19) mRNA-1273 vaccine 11/29/20 R ecorded zoster vaccine, inactivated 07/31/20 Recorded Pneumococcal Vaccine (oldterm) 11/29/07 Given 1Result Comment: [facility] 08234-520-99 2Result Comment: Patient tollerated well 3Result Comment: [facility] [id number] Medications Ascriptin Enteric 81 mg, By Mouth, Daily, Refills 0, Tot. Refills 0, 11/16/07 18:08:35 Start Date: 11/16/07 Status: Ordered atorvastatin 40 mg oral tablet 1 tablet = 40 mg, By Mouth, Daily, # 90 tablet, 11 Refills, Maintenance, 10/06/22 9:10:00 EST, Tablet, [facility], Partial fill upon patient request if the prescription is for a schedule II opioid drug., 166, cm, 10/06/22 8:31:00 E... Start Date: 10/06/22 Status: Ordered carvedilol 25 mg oral tablet 25 mg, 1, tablet, By Mouth, 2 times a day, # 180 tablet, Refills 0, Tot. Refills 0, Maintenance, 02/10/23 8:50:00 EDT, Route to Pharmacy Electronically, [facility]/pharmacy #[id number], Partial fill upon patient request if the prescription is for a schedule II opi... Start Date: 02/10/23 Status: Ordered glipiZIDE 10 mg oral tablet 1 tablet = 10 mg, By Mouth, 2 times a day, # 180 tablet, 11 Refills, Maintenance, 09/22/22 16:41:00EST, Tablet, [facility], Partial fill upon patient request if the prescription is for a schedule II opioid drug., 166, cm, 03/30/22... Start Date: 09/22/22 Status: Ordered lisinopril 10 mg oral tablet 10 mg, 1, tablet, By Mouth, Daily, # 90 tablet, Refills 1, Tot. Refills 1, Maintenance, 07/28/23 17:39:00 EST, Route to Pharmacy Electronically, [facility]/pharmacy #[id number], did not tolerate 20 mg dose;, 164.03, cm, 04/29/23 9:31:00 EDT, Height, 55.6, kg, 2... Start Date: 07/28/23 Stop Date: 01/24/24 Status: Ordered metFORMIN 500 mg oral tablet 2 tablet = 1,000 mg, By Mouth, 2 times a day, # 120 tablet, 11 Refills, Maintenance, 10/06/22 9:08:00 EST, Tablet, [facility], Partial fill upon patient request if the prescription is for a schedule II opioid drug., 166, cm, ... Start Date: 10/06/22 Status: Ordered Nitrostat 0.4 mg sublingual tablet 1 tablet = 0.4 mg, Sublingual, Every 5 minutes, PRN Chest Pain, # 100 tablet, 0 Refills, Maintenance, 11/03/19 16:02:00 EST, [facility]t, [id number], 166, cm, 11/03/19 15:28:00 EST, [...] Member Role: Primary Care Nurse Name: Yessenia Simmons MD Position: S Physician - Primary Care Member Role: PCP Address: Address: [address] [place] [address] Adult & [place] [address] Name: Kati Gordon RN Position: S RN Member Role: Primary Care Nurse Care Team Related Persons Name: MARK WELLINGTON Address: [address] [place] [address] Name: FANY CASE Address: home [address] [place] [address]
--- OUTSIDE RECORDS SUMMARY | 2024-03-20 19:13 | XMS_ITS | Continuity of Care Document ---
Author Organization [facility] Address [address] [place] [address]- Care Team Providers Care Sill Worker Name Role Phone Yessenia Simmons MD Primary Care Physician [phone] Encounter [facility] Date(s): 01/21/21 - 01/28/21 [facility] [address] [place], [place] [address] Encounter Diagnosis Diabetes mellitus(Discharge Diagnosis) - 01/21/21 Hyperlipidemia(Discharge Diagnosis) - 01/21/21 Uncontrolled hypertension(Discharge Diagnosis) - 01/21/21 Atrial fibrillation, persistent(Discharge Diagnosis) - 01/21/21 Attending Physician: Yessenia Simmons MD Allergies, Adverse Reactions, Alerts Substance Reaction Severity Status NKA Active Immunizations Given and Recorded Vaccine Date Status Refusal Reason SARS-CoV-2 (COVID-19) mRNA-1273 vaccine 01/04/21 R ecorded SARS-CoV-2 (COVID-19) mRNA-1273 vaccine 11/29/20 R ecorded Pneumococcal Vaccine (oldterm) 11/29/07 Given Medications Ascriptin Enteric 81 mg, By Mouth, Daily, Refills 0, Tot. Refills 0, 11/16/07 18:08:35 Start Date: 11/16/07 Status: Ordered atorvastatin 40 mg oral tablet 1 tablet = 40 mg, By Mouth, Daily, # 30 tablet, 0 Refills, Maintenance, 11/01/19 15:38:00 EST, Tablet Start Date: 11/01/19 Status: Ordered carvedilol 12.5 mg oral tablet 12.5 mg, 1, tablet, By Mouth, 2 times a day, # 180 tablet, Refills 0, Maintenance, 11/01/19 15:38:00 EST Start Date: 11/01/19 Status: Ordered ciclopirox 0.77% topical cream 1 application, Topically, 2 times a day, # 30 Gm, 0 Refills, Maintenance, 01/21/21 9:18:00 EDT, Cream, [id number], Partial fill upon patient request if the prescription is for a schedule II opioid drug., 1 application Topically 2 times a day,... Start Date: 01/21/21 Status: Ordered Eliquis 5 mg oral tablet TAKE 1 TABLET BY MOUTH TWICE A DAY Start Date: 11/11/20 Status: Ordered glipiZIDE 10 mg oral tablet 1 tablet = 10 mg, By Mouth, 2 times a day, # 60 tablet, 3 Refills, Maintenance, 11/11/20 15:58:00 EST, Tablet, [id number], Partial fill upon patient request if the prescription is for a schedule II opioid drug., 166, cm, 11/03/19 15:28:00 EST... Start Date: 11/11/20 Status: Ordered lisinopril 5 mg oral tablet 5 mg, 1, tablet, By Mouth, Daily, # 90 tablet, Refills 0, Tot. Refills 0, Maintenance, 01/21/21 9:25:00 EDT, Route to Pharmacy Electronically, [id number], Partial fill upon patient request if the prescription is for a schedule II opioid drug.... Start Date: 01/21/21 Status: Ordered metFORMIN 500 mg oral tablet 2 tablet = 1,000 mg, By Mouth, 2 times a day, # 120 tablet, 3 Refills, Maintenance, 11/11/20 15:58:00 EST, [facility]t, [id number], Partial fill upon patient request if the prescription is for a schedule II opioid drug., 166, cm, 11/03/19 15:28:00... Start Date: 11/11/20 Status: Ordered Nitrostat 0.4 mg sublingual tablet 1 tablet = 0.4 mg, Sublingual, Every 5 minutes, PRN Chest Pain, # 100 tablet, 0 Refills, Maintenance, 11/03/19 16:02:00 EST, [facility]t, [id number], 166, cm, 11/03/19 15:28:00 EST, Height, 65.3,kg, 11/01/19 22:48:00 EST, Dry Weight Start Date: 11/03/19 Stop Date: 12/03/19 Status: Ordered Problem List Condition Effective Dates Status Health Status Inform ant Diabetes mellitus(Confirmed) Active Ischemic cardiomyopathy(Confirmed) Active Hyperlipidemia(Confirmed) Active Diagnosis Diagnosis Type Effective Dates Health Status Clinical Service Informant Diabetes mellitus Discharge Diagnosis 01/21/21 Hyperlipidemia Discharge Diagnosis 01/21/21 Uncontrolled hypertension Discharge Diagnosis 01/21/21 Atrial fibrillation, persistent Discharge Diagnosis 01/21/21 Vital Signs Most recent to oldest [Reference Range]: 1 Height 166 cm (01/21/21 8:28 AM) Weight 73.6 kg (01/21/21 8:28 AM) Oxygen Saturation [94-100 %] 98 % (01/21/21 8:28 AM) Body Mass Index [18.5-24.99] 26.71 *H* (01/21/21 8:28 AM) Blood Pressure [90-138/55-84 mm Hg] 162/ 82mm Hg *H* (01/21/21 8:28 AM) Temperature [96.8-100.4 DegF] 97.7 DegF (01/21/21 8:28 AM) Mode of Delivery (Oxygen) Room air (01/21/21 8:28 AM) Blood pressure sites Arm, right (01/21/21 8:28 AM) Temperature Route Temporal (01/21/21 8:28 AM) Social History Social History Type Response Smoking Status Never smoker entered on: 02/12/16 Sex
--- OUTSIDE RECORDS SUMMARY | 2024-03-20 19:13 | XMS_ITS | Continuity of Care Document ---
Author Organization [facility] Address [address] [place] [address]- Care Team Providers Care Manager [place] Name Role Phone Yessenia Simmons MD Primary Care Physician Encounter [facility] Date(s): 01/27/23 - 02/03/23 [facility] [address] [place], [place] [address] Attending Physician: Britney Harris DO Referring Physician: Yessenia Simmons MD Allergies, Adverse Reactions, Alerts No Known Allergies Immunizations Given and Recorded Vaccine Date Status Refusal Reason [id number] 12y+ bivalent booster vax 07/29/22 Given influenza [...] 11 Refills, Maintenance, 10/06/22 9:10:00 EST, Tablet, [facility], Partial fill upon patient request if the prescription is for a schedule II opioid drug., 166, cm, 10/06/22 8:31:00 E... Start Date: 10/06/22 Status: Ordered carvedilol 12.5 mg oral tablet 12.5 mg, 1, tablet, By Mouth, 2 times a day, # 180 tablet, Refills 11, Tot. Refills 11, Maintenance, 09/23/22 8:45:00 EST, Route to Pharmacy Electronically, [facility], Partial fill upon patient request if the prescription is for a... Start Date: 09/23/22 Status: Ordered ciclopirox 0.77% topical cream 1 application, Topically, 2 times a day, # 30 Gm, 0 Refills, Maintenance, 01/21/21 9:18:00 EDT, Cream, [id number], Partial fill upon patient request [...] Refills, Maintenance, 06/21/22 21:34:00 EDT, Tablet, [facility], Partial fill upon patient request if the prescription is for a schedule II opioid... Start Date: 06/21/22 Status: Ordered glipiZIDE 10 mg oral tablet 1 tablet = 10 mg, By Mouth, 2 times a day, # 180 tablet, 11 Refills, Maintenance, 09/22/22 16:41:00EST, Tablet, [facility], Partial fill upon patient request if the prescription is for a schedule II opioid drug., 166, cm, 03/30/22... Start Date: 09/22/22 Status: Ordered lisinopril 20 mg oral tablet 20 mg, 1, tablet, By Mouth, Daily, # 30 tablet, Refills 2, Tot. Refills 2, Maintenance, 01/27/23 9:10:00 EDT, Route to Pharmacy Electronically, [facility]/pharmacy #[id number], Partial fill upon patient request if the prescription is for a schedule II opioid drug.... Start Date: 01/27/23 Status: Ordered metFORMIN 500 mg oral tablet 2 tablet = 1,000 mg, By Mouth, 2 times a day, # 120 tablet, 11 Refills, Maintenance, 10/06/22 9:08:00 EST, Tablet, [facility], Partial fill upon patient request if the prescription is for a schedule II opioid drug., 166, cm, ... Start Date: 10/06/22 Status: Ordered Nitrostat 0.4 mg sublingual tablet 1 tablet = 0.4 mg, Sublingual, Every 5 minutes, PRN Chest Pain, # 100 tablet, 0 Refills, Maintenance, 11/03/19 16:02:00 EST, [facility]t, [id number], 166, cm, 11/03/19 15:28:00 EST, Height, 65.3,kg, 11/01/19 22:48:00 EST, Dry Weight Start Date: 11/03/19 Stop Date: 12/03/19 Status: Ordered Problem List Condition Confirmation Course Effective Dates Status H ealth Status Informant Atrial fibrillation Confirmed Active Diabetes mellitus Confirmed Active Ischemic cardiomyopathy Confirmed Active Hyperlipidemia Confirmed Active Hypertension Confirmed Active Vital Signs Most recent to oldest [Reference Range]: 1 2 Height 166 cm (01/27/23 8:32 AM) 166 cm (01/27/23 8:28 AM) Weight 64.9 kg (01/27/23 8:28 AM) Oxygen Saturation [94-100 %] 99 % (01/27/23 8:32 AM) 99 % (01/27/23 8:28 AM) Pulse Rate [55-90 bpm] 76 bpm (01/27/23 8:32 AM) 81 bpm (01/27/23 8:28 AM) Body Mass Index [18.5-24.99 kg/m2] 23.55 kg/m2 (01/27/23 8:28 AM) Blood Pressure [90-138/55-84 mm Hg] 160/ 92mm Hg *H* (01/27/23 8:32 AM) 158/88mm Hg *H* (01/27/23 8:28 AM) Temperature [96.8-100.4 DegF] 97.1 DegF (01/27/23 8:28 AM) Mode of Delivery (Oxygen) Room air (01/27/23 8:28 AM) Blood pressure sites Arm, right (01/27/23 8:32 AM) Arm, right (01/27/23 8:28 AM) Temperature Route Temporal (01/27/23 8:28 AM) Dry Weight 64.9 kg (01/27/23 8:28 AM) Weight Obtained Via Standing scale (01/27/23 8:28 AM) Social History Social History Type Response Smoking Status Never smoker entered on: 02/12/16 Sex Note * Jenna Kenny: PERFORM, SIGN, VERIFY Event Display: Patient Education/Instruction Authored Date: [id number] [facility] *No [facility] Adult [facility] Clinical Summary Name SOREN BECKHAM Age 82 Years 1940 PCP Troy GUNDERSON, Yessenia PCP Visit Date 01/27/2023 08:16:00 Additional Instructions: Scheduled Appointments?? Future Appointments ?No Future Appointments Scheduled Follow-Up Instructions ?? Diagnosis Medications: Please continue your medications until treatment is completed or stopped by your provider. Discuss any questions related to medications with your provider. Medications to Continue with No Changes These medications were not printed or sent to your pharmacy apixaban (Eliquis 5 mg oral tablet) 1 tab(s) Oral twice a day. TAKE 1 TABLET BY MOUTH TWICE A DAY. Refills: 11. Next Dose: Aspirin (Ascriptin Enteric) 81 Milligram Oral Daily. Next Dose: Atorvastatin (atorvastatin 40 mg oral tablet) 1 tab(s) Oral Daily. Refills: 11. Next Dose: Carvedilol (carvedilol 12.5 mg oral tablet) 1 tab(s) Oral twice a day. Refills: 11. Next Dose: Ciclopirox Topical (ciclopirox 0.77% topical cream) 1 asif Topically twice a day. Refills: 0. Next Dose: GlipiZIDE (glipiZIDE 10 mg oral tablet) 1 tab(s) Oral twice a day. Refills: 11. Next Dose: Lisinopril (lisinopril 10 mg oral tablet) 1 tab(s) Oral Daily. Refills: 11. Next Dose: Metformin (metFORMIN 500 mg oral tablet) 2 tab(s) Oral twice a day. Refills: 11. Next Dose: Nitroglycerin (Nitrostat 0.4 mg sublingual tablet) 1 tab(s) Sublingual every 5 minutes as needed Chest Pain for 30 Days. Refills: 0. Next Dose: Allergy Info:?? NKA Medications Given This Visit Future Orders ?No future orders Vital Signs Height 166 cm Weight 64.9 kg BMI 23.55 kg/m2 Blood Pressure 160 mm Hg/92 mm Hg Temperature 97.1 DegF Pulse Rate 76 bpm Respiratory Rate 02 Sat Mode of Delivery 99 %/Room air You can now view a summary of your hospital visit from the comfort of your home through a free online portal called [employer]. [employer] is a website that allows you to securely view your medical information including discharge summary, medications and follow-up visits. ??You can alsosend a secure electronic message to your doctor???s office to request appointments, renew medications or just ask a question. You can enroll at [email or web address] or register during your next office visit. Disclaimer:?? The information provided is of a general nature and is intended to be used in conjunction with the recommendations and advice of your health care practitioner. ??Every effort has been made to ensure that the information provided is accurate and complete at the time it is provided to you however, as your needs change, or, as new ??information becomes available, different or additional instructions may be required. If you have questions, please consult with your primary care provider or pharmacist, as appropriate. ??This information is not intended to serve as substitution for assessment and evaluation by a qualified health care provider. If you do not have a primary care provider, you may find a [facility] provider by calling [facility] [employer] [facility] at [phone]. For information about the plan of care including goals and instructions for your diagnosis, please see the patient education orders section of this document. Patient Education Materials?? The content of this educational material or handout may have been modified, supplemented, or adapted from its original content and format to support your individualized medical care. Patient Care team information Care Team Personnel Name: Yessenia Simmons MD Position: [facility] Primary Care Physician Member Role: PCP Address: Address: [address] [place] [address] Adult [place] [address]- Care Team Related Persons Name: MARK WELLINGTON Address: [address] [place] [address] Name: FAYN CASE Address: home [address] [place] [address]
--- OUTSIDE RECORDS SUMMARY | 2024-03-20 19:13 | XMS_ITS | Continuity of Care Document ---
Author Organization [facility] Address [address] [place] [address]- Care Team Providers Care Loss Prevention Leader Name Role Phone Yessenia Simmons MD Primary Care Physician [phone] Encounter [facility] [place] Date(s): 11/11/20 - 11/18/20 [facility] [address] [place] [place] [address] Encounter Diagnosis Diabetes mellitus(Discharge Diagnosis) - 11/11/20 Hyperlipidemia(Discharge Diagnosis) - 11/11/20 Ischemic cardiomyopathy(Discharge Diagnosis) - 11/11/20 Attending Physician: Yessenia Simmons MD Allergies, Adverse Reactions, Alerts Substance Reaction Severity Status NKA Active Immunizations Given and Recorded Vaccine Date Status Refusal Reason Pneumococcal Vaccine (oldterm) 11/29/07 Given Medications amLODIPine 5 mg oral tablet 5 mg, 1, tablet, By Mouth, Daily, # 30 tablet, Refills 0, Tot. Refills 0, Maintenance, 11/03/19 16:01:00 EST, [id number], [facility], cm, 11/03/19 15:28:00 EST, Height, 65.3, kg, 11/01/19 22:48:00 EST, Dry Weight Start Date: 11/03/19 Status: Ordered Ascriptin Enteric 81 mg, By Mouth, Daily, [...] 15:38:00 EST Start Date: 11/01/19 Status: Ordered Eliquis 5 mg oral tablet TAKE 1 TABLET BY MOUTH TWICE A DAY Start Date: 11/11/20 Status: Ordered glipiZIDE 10 mg oral tablet 1 tablet = 10 mg, By Mouth, 2 times a day, # 60 tablet, 3 Refills, Maintenance, 11/11/20 15:58:00 EST, [facility]t, [id number], Partial fill upon patient request if the prescription is for a schedule II opioid drug., 166, cm, 11/03/19 15:28:00 EST... Start Date: 11/11/20 Status: Ordered lisinopril 5 mg oral tablet 2.5 mg, 0.5, tablet, By Mouth, Daily, # 15 tablet, Refills 3, Tot. Refills 3, Maintenance, 11/11/2114:58:00 EST, [facility], [id number], Partial fill upon patient request if the prescription is for a schedule II opioid... Start Date: 11/11/20 Status: Ordered metFORMIN 500 mg oral tablet 2 tablet = 1,000 mg, By Mouth, 2 times a day, # 120 tablet, 3 Refills, Maintenance, 11/11/20 15:58:00 EST, [facility]t, [id number], Partial fill upon patient request if the prescription is for a schedule II opioid drug., 166, cm, 11/03/19 15:28:00... Start Date: 11/11/20 Status: Ordered Nitrostat 0.4 mg sublingual tablet 1 tablet = 0.4 mg, Sublingual, Every 5 minutes, PRN Chest Pain, # 100 tablet, 0 Refills, Maintenance, 11/03/19 16:02:00 EST, [id number], 166, cm, 11/03/19 15:28:00 EST, Height, 65.3,kg, 11/01/19 22:48:00 EST, Dry Weight Start Date: 11/03/19 Stop Date: 12/03/19 Status: Ordered Problem List Condition Effective Dates Status Health Status Inform ant Diabetes mellitus(Confirmed) Active Ischemic cardiomyopathy(Confirmed) Active Hyperlipidemia(Confirmed) Active Diagnosis Diagnosis Type Effective Dates Health Status Clinical Service Informant Diabetes mellitus Discharge Diagnosis 11/11/20 Hyperlipidemia Discharge Diagnosis 11/11/20 Ischemic cardiomyopathy Discharge Diagnosis 11/11/20 Social History Social History Type Response Smoking Status Never smoker entered on: 02/12/16 Sex
--- OUTSIDE RECORDS SUMMARY | 2024-03-20 19:13 | XMS_ITS | Continuity of Care Document ---
Author Organization [facility] Address [address] [place] [address]- Care Team Providers Care Sewer And Drain Technician Name Role Phone Yessenia Simmons MD Primary Care Physician Encounter [facility] [place] Date(s): 02/02/22 - 03/04/22 [facility] [address] [place], [place] [address] Allergies, Adverse Reactions, Alerts No Known Allergies Immunizations Given and Recorded Vaccine Date Status Refusal Reason SARS-CoV-2 (COVID-19) mRNA-1273 vaccine 08/30/21 R ecorded SARS-CoV-2 (COVID-19) mRNA-1273 vaccine 01/04/21 R ecorded SARS-CoV-2 (COVID-19) mRNA-1273 vaccine 11/29/20 R ecorded influenza virus vaccine, inactivated 1 07/17/21 Gi ada zoster vaccine, inactivated 07/31/20 Recorded Pneumococcal Vaccine (oldterm) 11/29/07 Given 1Result Comment: Patient tollerated well Medications Ascriptin Enteric 81 mg, By Mouth, Daily, Refills 0, Tot. Refills 0, 11/16/07 18:08:35 Start Date: 11/16/07 Status: Ordered atorvastatin 40 mg oral tablet 1 tablet = 40 mg, By Mouth, Daily, # 90 tablet, 11 Refills, Maintenance, 07/17/21 10:05:00 EDT, [facility]t, [id number], Partial fill upon patient request if the prescription is for a schedule IIopioid drug., 166, cm, 07/17/21 9:36:00 EDT, Height... Start Date: 07/17/21 Status: Ordered carvedilol 12.5 mg oral tablet 12.5 mg, 1, tablet, By Mouth, 2 times a day, # 180 tablet, Refills 11, Tot. Refills 11, Maintenance, 07/17/21 10:05:00 EDT, Route to Pharm[facility] Electron[facility], [id number], Partial fill upon patient request if the prescription is for a schedule... Start Date: 07/17/21 Status: Ordered ciclopirox 0.77% topical cream 1 application, Topically, 2 times a day, # 30 Gm, 0 Refills, Maintenance, 01/21/21 9:18:00 EDT, Cream, [id number], Partial fill upon patient request [...] 21:34:00 EDT, 06/26/21 21:34:00 EDT, [facility], [id number], Partial fill upon patient request if the prescript... Start Date: 06/26/21 Stop Date: 06/21/22 Status: Ordered Eliquis 5 mg oral tablet 1 tablet = 5 mg, By Mouth, 2 times a day, TAKE 1 TABLET BY MOUTH TWICE A DAY, # 180 tablet, 11 Refills, Maintenance, 06/21/22 21:34:00 EDT, [facility], [id number], Partial fill upon patient request if the prescription is for a schedule II opioid... Start Date: 06/21/22 Status: Ordered glipiZIDE 10 mg oral tablet 1 tablet = 10 mg, By Mouth, 2 times a day, for 90 days, # 180 tablet, 3 Refills, Hard Stop 06/21/2221:35:00 EDT, 06/26/21 21:35:00 EDT, [facility], [id number], Partial fill upon patient requestif the prescription is for a schedule II opioid shi... Start Date: 06/26/21 Stop Date: 06/21/22 Status: Ordered glipiZIDE 10 mg oral tablet 1 tablet = 10 mg, By Mouth, 2 times a day, # 180 tablet, 11 Refills, Maintenance, 06/21/22 21:35:00EDT, [facility], [id number], Partial fill upon patient request if the prescription is for a schedule II opioid drug., 166, cm, 04/11/21 8:31:00 ED... Start Date: 06/21/22 Status: Ordered lisinopril 10 mg oral tablet 10 mg, 1, tablet, By Mouth, Daily, # 90 tablet, Refills 6, Tot. Refills 6, Maintenance, 04/11/21 8:49:00 EDT, Route [facility] Pharm[facility], [id number], Partial fill upon patient request if the prescription is for a schedule II opioid drug... Start Date: 04/11/21 Status: Ordered metFORMIN 500 mg oral tablet 2 tablet = 1,000 mg, By Mouth, 2 times a day, # 120 tablet, 3 Refills, Maintenance, 11/11/20 15:58:00 EST, [facility]t, [id number], Partial fill upon patient request if the prescription is for a schedule II opioid drug., 166, cm, 11/03/19 15:28:00... Start Date: 11/11/20 Status: Ordered Nitrostat 0.4 mg sublingual tablet 1 tablet = 0.4 mg, Sublingual, Every 5 minutes, PRN Chest Pain, # 100 tablet, 0 Refills, Maintenance, 11/03/19 16:02:00 EST, [facility], [id number], 166, cm, 11/03/19 15:28:00 EST, [...]
--- OUTSIDE RECORDS SUMMARY | 2024-03-20 19:13 | XMS_ITS | Continuity of Care Document ---
Author Organization [facility] Address [address] [place] [address]- Care Team Providers Care Starting Sheet Tank Operator Name Role Phone Troy GUNDERSON, Yessenia Primary Care Physician Encounter [facility] Date(s): 09/22/22 - 10/22/22 [facility] [address] [place], [place] [address] Allergies, Adverse Reactions, Alerts No Known Allergies Immunizations Given and Recorded Vaccine Date Status Refusal Reason [id number] 12y+ bivalent booster vax 07/29/22 Given influenza [...] 11 Refills, Maintenance, 10/06/22 9:10:00 EST, Tablet, [facility], Partial fill upon patient request if the prescription is for a schedule II opioid drug., 166, cm, 10/06/22 8:31:00 E... Start Date: 10/06/22 Status: Ordered carvedilol 12.5 mg oral tablet 12.5 mg, 1, tablet, By Mouth, 2 times a day, # 180 tablet, Refills 11, Tot. Refills 11, Maintenance, 09/23/22 8:45:00 EST, Route to Pharmacy Electronically, [facility], Partial fill upon patient request if the prescription is for a... Start Date: 09/23/22 Status: Ordered ciclopirox 0.77% topical cream 1 application, Topically, 2 times a day, # 30 Gm, 0 Refills, Maintenance, 01/21/21 9:18:00 EDT, Cream, [id number], Partial fill upon patient request [...] Refills, Maintenance, 06/21/22 21:34:00 EDT, [facility]t, [id number], Partial fill upon patient request if the prescription is for a schedule II opioid... Start Date: 06/21/22 Status: Ordered glipiZIDE 10 mg oral tablet 1 tablet = 10 mg, By Mouth, 2 times a day, # 180 tablet, 11 Refills, Maintenance, 09/22/22 16:41:00EST, Tablet, [facility], Partial fill upon patient request if the prescription is for a schedule II opioid drug., 166, cm, 03/30/22... Start Date: 09/22/22 Status: Ordered lisinopril 10 mg oral tablet 10 mg, 1, tablet, By Mouth, Daily, # 90 tablet, Refills 11, Tot. Refills 11, Maintenance, 10/06/22 9:12:00 EST, Route to Pharmacy Electronically, [facility], Partial fill upon patient request if the prescription is for a schedule I... Start Date: 10/06/22 Status: Ordered metFORMIN 500 mg oral tablet 2 tablet = 1,000 mg, By Mouth, 2 times a day, # 120 tablet, 11 Refills, Maintenance, 10/06/22 9:08:00 EST, Tablet, [facility], Partial fill upon patient request if the prescription is for a schedule II opioid drug., 166, cm, ... Start Date: 10/06/22 Status: Ordered Nitrostat 0.4 mg sublingual tablet 1 tablet = 0.4 mg, Sublingual, Every 5 minutes, PRN Chest Pain, # 100 tablet, 0 Refills, Maintenance, 11/03/19 16:02:00 EST, [facility], [id number], 166, cm, 11/03/19 15:28:00 EST, [...] Team Personnel Name: Yessenia Simmons MD Position: [facility] Primary Care Physician Member Role: PCP Address: Address: [address] [place] [address] Adult & [place] [address]- Care Team Related Persons Name: MARK WELLINGTON Address: [address] [place] [address] Name: FANY CASE Address: home [address] [place] [address]
--- OUTSIDE RECORDS SUMMARY | 2024-03-20 19:13 | XMS_ITS | Continuity of Care Document ---
Author Organization [facility] Address [address] [place] [address]- Care Team Providers Care Membership Assistant Name Role Phone Yessenia Simmons MD Primary Care Physician Encounter [facility] Date(s): 09/24/21 - 11/12/21 [facility] [address] [place] [address]- Attending Physician: David GUNDERSON, Ravinder Toussaint Admitting [...] Refills, Maintenance, 07/17/21 10:05:00 EDT, [facility]t, [id number], Partial fill upon patient request if the prescription is for a schedule IIopioid drug., 166, cm, 07/17/21 9:36:00 EDT, Height... Start Date: 07/17/21 Status: Ordered carvedilol 12.5 mg oral tablet 12.5 mg, 1, tablet, By Mouth, 2 times a day, # 180 tablet, Refills 11, Tot. Refills 11, Maintenance, 07/17/21 10:05:00 EDT, Route [facility] Electron[facility], [id number], Partial fill upon patient request if the prescription is for a schedule... Start Date: 07/17/21 Status: Ordered ciclopirox 0.77% topical cream 1 application, Topically, 2 times a day, # 30 Gm, 0 Refills, Maintenance, 01/21/21 9:18:00 EDT, Cream, [id number], Partial fill upon patient request [...] 21:34:00 EDT, 06/26/21 21:34:00 EDT, [facility]t, [id number], Partial fill upon patient request if the prescript... Start Date: 06/26/21 Stop Date: 06/21/22 Status: Ordered Eliquis 5 mg oral tablet 1 tablet = 5 mg, By Mouth, 2 times a day, TAKE 1 TABLET BY MOUTH TWICE A DAY, # 180 tablet, 11 Refills, Maintenance, 06/21/22 21:34:00 EDT, [facility], [id number], Partial fill upon patient request if the prescription is for a schedule II opioid... Start Date: 06/21/22 Status: Ordered glipiZIDE 10 mg oral tablet 1 tablet = 10 mg, By Mouth, 2 times a day, for 90 days, # 180 tablet, 3 Refills, Hard Stop 06/21/2221:35:00 EDT, 06/26/21 21:35:00 EDT, [facility], [id number], Partial fill upon patient requestif the prescription is for a schedule II opioid shi... Start Date: 06/26/21 Stop Date: 06/21/22 Status: Ordered glipiZIDE 10 mg oral tablet 1 tablet = 10 mg, By Mouth, 2 times a day, # 180 tablet, 11 Refills, Maintenance, 06/21/22 21:35:00EDT, [facility]t, [id number], Partial fill upon patient request if the prescription is for a schedule II opioid drug., 166, cm, 04/11/21 8:31:00 ED... Start Date: 06/21/22 Status: Ordered lisinopril 10 mg oral tablet 10 mg, 1, tablet, By Mouth, Daily, # 90 tablet, Refills 6, Tot. Refills 6, Maintenance, 04/11/21 8:49:00 EDT, Route [facility] Pharm[facility] Electronically, [id number], Partial fill upon patient request if the prescription is for a schedule II opioid drug... Start Date: 04/11/21 Status: Ordered metFORMIN 500 mg oral tablet 2 tablet = 1,000 mg, By Mouth, 2 times a day, # 120 tablet, 3 Refills, Maintenance, 11/11/20 15:58:00 EST, [facility]t, [id number], Partial fill upon patient request if the prescription is for a schedule II opioid drug., 166, cm, 11/03/19 15:28:00... Start Date: 11/11/20 Status: Ordered Nitrostat 0.4 mg sublingual tablet 1 tablet = 0.4 mg, Sublingual, Every 5 minutes, PRN Chest Pain, # 100 tablet, 0 Refills, Maintenance, 11/03/19 16:02:00 EST, [facility]t, [id number], 166, cm, 11/03/19 15:28:00 EST, [...]
--- OUTSIDE RECORDS SUMMARY | 2024-03-20 19:13 | XMS_ITS | Continuity of Care Document ---
Author Organization [facility] Address [address] [place] [address]- Care Team Providers Care Director Instrumentation Name Role Phone Troy GUNDERSON, Yessenia Primary Care Physician [phone] Encounter [facility] Date(s): 02/16/23 - 03/18/23 [facility] [address] [place], [place] [address] Allergies, Adverse Reactions, Alerts No Known Allergies Immunizations Given and Recorded Vaccine Date Status Refusal Reason [id number] 12y+ bivalent booster vax 07/29/22 Given influenza [...] 11 Refills, Maintenance, 10/06/22 9:10:00 EST, Tablet, [facility], Partial fill upon patient request if the prescription is for a schedule II opioid drug., 166, cm, 10/06/22 8:31:00 E... Start Date: 10/06/22 Status: Ordered carvedilol 25 mg oral tablet 25 mg, 1, tablet, By Mouth, 2 times a day, # 180 tablet, Refills 0, Tot. Refills 0, Maintenance, 02/10/23 8:50:00 EDT, Route to Pharmacy Electronically, [facility]/pharmacy #[id number], Partial fill upon patient request if the prescription is for a schedule II opi... Start Date: 02/10/23 Status: Ordered Eliquis 5 mg oral tablet 1 tablet = 5 mg, By Mouth, 2 times a day, TAKE 1 TABLET BY MOUTH TWICE A DAY, # 180 tablet, 11 Refills, Maintenance, 06/21/22 21:34:00 EDT, Tablet, [facility] [id number] [facility], Partial fill upon patient request if the prescription is for a schedule II opioid... Start Date: 06/21/22 Status: Ordered glipiZIDE 10 mg oral tablet 1 tablet = 10 mg, By Mouth, 2 times a day, # 180 tablet, 11 Refills, Maintenance, 09/22/22 16:41:00EST, Tablet, [facility], Partial fill upon patient request if the prescription is for a schedule II opioid drug., 166, cm, 03/30/22... Start Date: 09/22/22 Status: Ordered lisinopril 20 mg oral tablet 20 mg, 1, tablet, By Mouth, Daily, # 30 tablet, Refills 2, Tot. Refills 2, Maintenance, 01/27/23 9:10:00 EDT, Route to Pharmacy Electronically, [facility]/pharmacy #[id number], Partial fill upon patient request if the prescription is for a schedule II opioid drug.... Start Date: 01/27/23 Status: Ordered metFORMIN 500 mg oral tablet 2 tablet = 1,000 mg, By Mouth, 2 times a day, # 120 tablet, 11 Refills, Maintenance, 10/06/22 9:08:00 EST, Tablet, [facility], Partial fill upon patient request if the prescription is for a schedule II opioid drug., 166, cm, ... Start Date: 10/06/22 Status: Ordered Nitrostat 0.4 mg sublingual tablet 1 tablet = 0.4 mg, Sublingual, Every 5 minutes, PRN Chest Pain, # 100 tablet, 0 Refills, Maintenance, 11/03/19 16:02:00 EST, [facility], [id number], 166, cm, 11/03/19 15:28:00 EST, [...] Care Nurse Name: Yesy Hylton RN Position: [facility] RN Member Role: Primary Care Nurse Name: Yessenia Simmons MD Position: [facility] Physician - Primary Care Member Role: PCP Address: Address: [address] [place] [address] Adult & Pediatric [place], [place] [address] Name: Kati Gordon RN Position: S RN Member Role: Primary Care Nurse Care Team Related Persons Name: MARK WELLINGTON Address: [address] [place] [address] Name: FANY CASE Address: home [address] [place] [address]
--- OUTSIDE RECORDS SUMMARY | 2024-03-20 19:13 | XMS_ITS | Continuity of Care Document ---
Author Organization [facility] Address [address] [place] [address]- Care Team Providers Care Regional Service Manager Name Role Phone Mayelinjeanette ARANGODianLisa Kin Primary Care Physician [phone] Encounter [facility] [place] Date(s): 10/30/19 - 11/28/[address] [address]- [facility] Attending Physician: Jason Moncada MD Admitting Physician: Jason Moncada MD Allergies, Adverse Reactions, Alerts Substance Reaction Severity Status NKA Active Immunizations Given and Recorded Vaccine Date Status Refusal Reason Pneumococcal Vaccine (oldterm) 11/29/07 Given Medications amLODIPine 5 mg oral tablet 5 mg, 1, tablet, By Mouth, Daily, # 30 tablet, Refills 0, Tot. Refills 0, Maintenance, 11/03/19 16:01:00 EST, Route to Pharmacy Electronically, [facility] [id number] [facility], 166, cm, 11/03/19 15:28:00 EST, [...] 15:38:00 EST Start Date: 11/01/19 Status: Ordered glipiZIDE 10 mg oral tablet 1 tablet = 10 mg, By Mouth, Daily, # 30 tablet, 0 Refills, Maintenance, 11/01/19 15:38:00 EST, Tablet Start Date: 11/01/19 Status: Ordered Lisinopril Tablet 2.5 mg, By Mouth, Daily, Refills 0, Tot. Refills 0, 11/16/07 18:06:49 Start Date: 11/16/07 Status: Ordered metformin 500 mg oral tablet 2 tablet = 1,000 mg, By Mouth, 2 times a day, 0 Refills, Soft Stop, 08/27/09 14:00:40 Start Date: 08/27/09 Stop Date: 09/26/09 Status: Ordered Nitrostat 0.4 mg sublingual tablet 1 tablet = 0.4 mg, Sublingual, Every 5 minutes, PRN Chest Pain, # 100 tablet, 0 Refills, Maintenance, 11/03/19 16:02:00 EST, [id number], 166, cm, 11/03/19 15:28:00 EST, Height, 65.3,kg, 11/01/19 22:48:00 EST, Dry Weight Start Date: 11/03/19 Stop Date: 12/03/19 Status: Ordered Problem List Condition Effective Dates Status Health Status Inform ant Diabetes mellitus(Confirmed) Active Ischemic cardiomyopathy(Confirmed) Active Hyperlipidemia(Confirmed) Active Social History Social History Type Response Smoking Status Never smoker entered on: 02/12/16 Sex
--- OUTSIDE RECORDS SUMMARY | 2024-03-20 19:13 | XMS_ITS | Continuity of Care Document ---
Author Organization [facility] ter Address [address] [place] [address]- Care Team Providers Care Crime Lab Technician Name Role Phone Lisa Mckinney DO Primary Care Physician [place] [facility] [place] 03/17/20 - 03/17/[address] [address]- [facility] Discharge Disposition: A-D/C Walkout Attending Physician: Not on Staff, Attending MD Admitting Physician: Not on Staff, Admitting MD Referring Physician: Not on Staff, Referring MD Allergies, Adverse Reactions, Alerts Substance Reaction Severity Status NKA Active Immunizations Given and Recorded Vaccine Date Status Refusal Reason Pneumococcal Vaccine (oldterm) 11/29/07 Given Medications amLODIPine 5 mg oral tablet 5 mg, 1, tablet, By Mouth, Daily, # 30 tablet, Refills 0, Tot. Refills 0, Maintenance, 11/03/19 16:01:00 EST, [id number], 166, cm, 11/03/19 15:28:00 EST, [...] Refills, Maintenance, 11/03/19 16:02:00 EST, [id number], 166, cm, 11/03/19 15:28:00 EST, Height, 65.3,kg, 11/01/19 22:48:00 EST, Dry Weight Start Date: 11/03/19 Stop Date: 12/03/19 Status: Ordered Problem List Condition Effective Dates Status Health Status Inform ant Diabetes mellitus(Confirmed) Active Ischemic cardiomyopathy(Confirmed) Active Hyperlipidemia(Confirmed) Active Social History Social History Type Response Smoking Status Never smoker entered on: 02/12/16 Sex
--- OUTSIDE RECORDS SUMMARY | 2024-03-20 19:13 | XMS_ITS | Continuity of Care Document ---
Author Organization [facility] Address [address] [place] [address]- Care Team Providers Care Optical Manager Name Role Phone Yessenia Simmons MD Primary Care Physician [phone] Encounter [facility] [place] Date(s): 06/02/23 - 07/02/23 [facility] [address] [place], [place] [address] Allergies, Adverse Reactions, Alerts No Known Allergies Immunizations Given and Recorded Vaccine Date Status Refusal Reason tetanus-diphtheria toxoids (Td) 1 04/29/23 Given [id number] 12y+ bivalent booster vax 07/29/22 Given influenza virus vaccine, inactivated 07/29/22 Give n influenza virus vaccine, inactivated 2 07/17/21 Gi ada SARS-CoV-2 (COVID-19) mRNA-1273 vaccine 08/30/21 R ecorded SARS-CoV-2 (COVID-19) mRNA-1273 vaccine 01/04/21 R ecorded SARS-CoV-2 (COVID-19) mRNA-1273 vaccine 11/29/20 R ecorded zoster vaccine, inactivated 07/31/20 Recorded Pneumococcal Vaccine (oldterm) 11/29/07 Given 1Result Comment: [facility] [address]-6 2Result Comment: Patient tollerated well Medications Ascriptin Enteric 81 mg, By Mouth, Daily, Refills 0, Tot. Refills 0, 11/16/07 18:08:35 Start Date: 11/16/07 Status: Ordered atorvastatin 40 mg oral tablet 1 tablet = 40 mg, By Mouth, Daily, # 90 tablet, 11 Refills, Maintenance, 10/06/22 9:10:00 EST, Tablet, [facility], Partial fill upon patient request if the prescription is for a schedule II opioid drug., 166, cm, 10/06/22 8:31:00 E... Start Date: 10/06/22 Status: Ordered carvedilol 25 mg oral tablet 25 mg, 1, tablet, By Mouth, 2 times a day, # 180 tablet, Refills 0, Tot. Refills 0, Maintenance, 02/10/23 8:50:00 EDT, Route to Pharmacy Electronically, [facility]/pharmacy #[id number], Partial fill upon patient request if the prescription is for a schedule II opi... Start Date: 02/10/23 Status: Ordered Eliquis 5 mg oral tablet 1 tablet = 5 mg, By Mouth, 2 times a day, TAKE 1 TABLET BY MOUTH TWICE A DAY, # 180 tablet, 11 Refills, Maintenance, 06/21/22 21:34:00 EDT, Tablet, [facility] [id number] [facility], Partial fill upon patient request if the prescription is for a schedule II opioid... Start Date: 06/21/22 Status: Ordered glipiZIDE 10 mg oral tablet 1 tablet = 10 mg, By Mouth, 2 times a day, # 180 tablet, 11 Refills, Maintenance, 09/22/22 16:41:00EST, Tablet, [facility], Partial fill upon patient request if the prescription is for a schedule II opioid drug., 166, cm, 03/30/22... Start Date: 09/22/22 Status: Ordered lisinopril 10 mg oral tablet 10 mg, 1, tablet, By Mouth, Daily, # 90 tablet, Refills 0, Tot. Refills 0, Maintenance, 04/29/23 17:39:00 EDT, Route to Pharmacy Electronically, [facility]/pharmacy #[id number], did not tolerate 20 mg dose;, 164.03, cm, 04/29/23 9:31:00 EDT, Height, 55.6, kg, 01/19... Start Date: 04/29/23 Stop Date: 07/28/23 Status: Ordered metFORMIN 500 mg oral tablet 2 tablet = 1,000 mg, By Mouth, 2 times a day, # 120 tablet, 11 Refills, Maintenance, 10/06/22 9:08:00 EST, Tablet, [facility], Partial fill upon patient request if the prescription is for a schedule II opioid drug., 166, cm, ... Start Date: 10/06/22 Status: Ordered Nitrostat 0.4 mg sublingual tablet 1 tablet = 0.4 mg, Sublingual, Every 5 minutes, PRN Chest Pain, # 100 tablet, 0 Refills, Maintenance, 11/03/19 16:02:00 EST, Tablet, [id number], 166, cm, 11/03/19 15:28:00 EST, [...] Care Nurse Name: Yessenia Simmons MD Position: [facility] Physician - Primary Care Member Role: PCP Address: Address: [address] [place] [address] Adult & [place] [address]- Name: Kati Gordon RN Position: S RN Member Role: Primary Care Nurse Care Team Related Persons Name: MARK WELLINGTON Address: home [address] [place] [address] Name: FANY CASE Address: home [address] [place] [address]
--- OUTSIDE RECORDS SUMMARY | 2024-03-20 19:13 | XMS_ITS | Continuity of Care Document ---
Author Organization [facility] Address [address] [place] [address]- Care Team Providers Care Cop Breaker Name Role Phone Ria Bryant MD Primary Care Physician Encounter [facility] [place] Date(s): 12/29/23 - 01/28/24 [facility] [address] [place], [place] [address] Allergies, Adverse Reactions, Alerts No Known Allergies Immunizations Given and Recorded Vaccine Date Status Refusal Reason influenza virus vaccine, inactivated 1 08/03/23 Gi ada influenza virus vaccine, inactivated 07/29/22 Give n influenza virus vaccine, inactivated 2 07/17/21 Gi ada tetanus-diphtheria toxoids (Td) 3 04/29/23 Given [id number] 12y+ bivalent booster vax 07/29/22 Given SARS-CoV-2 (COVID-19) mRNA-1273 vaccine 08/30/21 R ecorded SARS-CoV-2 (COVID-19) mRNA-1273 vaccine 01/04/21 R ecorded SARS-CoV-2 (COVID-19) mRNA-1273 vaccine 11/29/20 R ecorded zoster vaccine, inactivated 07/31/20 Recorded Pneumococcal Vaccine (oldterm) 11/29/07 Given 1Result Comment: [facility] [address]-523-74 2Result Comment: Patient tollerated well 3Result Comment: [facility] [address]-9 Medications Ascriptin Enteric 81 mg, By Mouth, Daily, Refills 0, Tot. Refills 0, 11/16/07 18:08:35 Start Date: 11/16/07 Status: Ordered atorvastatin 40 mg oral tablet 1 tablet = 40 mg, By Mouth, Daily, # 90 tablet, 1 Refills, Maintenance, 12/28/23 9:55:00 EDT, Tablet, [id number], Partial fill upon patient request if the prescription is for a schedule II opioid drug., 164.03, cm, 11/09/23 8:55:00 EST, Height... Start Date: 12/28/23 Status: Ordered glipiZIDE 10 mg oral tablet 1 tablet = 10 mg, By Mouth, 2 times a day, # 180 tablet, 0 Refills, Maintenance, 12/28/23 9:49:00 EDT, Tablet, [facility]/pharmacy #[id number], Partial fill upon patient request if the prescription is for a schedule II opioid drug., 164.03, cm, 11/09/23 8:55:00 ES... Start Date: 12/28/23 Status: Ordered lisinopril 10 mg oral tablet 1, tablet, By Mouth, Daily, # 90 tablet, Refills 1, Tot. Refills 1, Maintenance, 01/24/24 18:46:00 EDT, Route to Pharmacy Electronically, [facility]/pharmacy #[id number], 164.03, cm, 11/09/23 8:55:00 EST, Height,66.2, kg, 11/09/23 8:49:00 EST, Dry Weight Start Date: 01/24/24 Status: Ordered magnesium oxide 400 mg oral tablet 2 times a day, 0 Refills, Maintenance, 11/09/23 9:28:00 EST, Partial fill upon patient request if the prescription is for a schedule II opioid drug. Start Date: 11/09/23 Stop Date: 02/07/24 Status: Ordered metFORMIN 500 mg oral tablet 2 tablet = 1,000 mg, By Mouth, 2 times a day, # 120 tablet, 1 Refills, Maintenance, 12/29/23 16:20:00 EDT, Tablet, [facility]/pharmacy #[id number], Partial fill upon patient request if the prescription is for a schedule II opioid drug., 164.03, cm, 11/09/23 8:55:0... Start Date: 12/29/23 Status: Ordered Nitrostat 0.4 mg sublingual tablet 1 tablet = 0.4 mg, Sublingual, Every 5 minutes, PRN Chest Pain, # 100 tablet, 0 Refills, Maintenance, 11/03/19 16:02:00 EST, Tablet, [facility] [id number] [facility], 166, cm, 11/03/19 15:28:00 EST, [...] RN Member Role: Primary Care Nurse Name: Ria Bryant MD Position: [facility] Physician - Primary Care Member Role: PCP Address: Address: [address] [place] [address] Adult & Pediatric [place], [place] [address] Name: Lisha Cardenas Position: S RN Member Role: Primary Care Nurse Name: Aster Ellison RN Position: S RN Member Role: Primary Care Nurse Name: Yesy Hylton RN Position: S RN Member Role: Primary Care Nurse Name: Kati Gordon RN Position: S RN Member Role: Primary Care Nurse Care Team Related Persons Name: MARK WELLINGTON Address: [address] [place] [address] Name: FANY CASE Address: home [address] [place] [address]
--- OUTSIDE RECORDS SUMMARY | 2024-03-20 19:13 | XMS_ITS | Continuity of Care Document ---
Author Organization [facility] Address [address] [place] [address]- Care Team Providers Care Assistant Program Director Name Role Phone Troy GUNDERSON, Yessenia Primary Care Physician Encounter [facility] Date(s): 08/10/23 - 09/09/23 [facility] [address] [place], [place] [address] Allergies, Adverse Reactions, Alerts No Known Allergies Immunizations Given and Recorded Vaccine Date Status Refusal Reason influenza virus vaccine, inactivated 1 08/03/23 Gi ada influenza virus vaccine, inactivated 07/29/22 Give n influenza virus vaccine, inactivated 2 07/17/21 Gi ada tetanus-diphtheria toxoids (Td) 3 04/29/23 Given [id number] 12y+ bivalent booster vax 07/29/22 Given SARS-CoV-2 (COVID-19) mRNA-1273 vaccine 08/30/21 R ecorded SARS-CoV-2 (COVID-19) mRNA-1273 vaccine 01/04/21 R ecorded SARS-CoV-2 (COVID-19) mRNA-1273 vaccine 11/29/20 R ecorded zoster vaccine, inactivated 07/31/20 Recorded Pneumococcal Vaccine (oldterm) 11/29/07 Given 1Result Comment: [facility] 36902-621-26 2Result Comment: Patient tollerated well 3Result Comment: [facility] [id number] Medications Ascriptin Enteric 81 mg, By Mouth, Daily, Refills 0, Tot. Refills 0, 11/16/07 18:08:35 Start Date: 11/16/07 Status: Ordered atorvastatin 40 mg oral tablet 1 tablet = 40 mg, By Mouth, Daily, # 90 tablet, 11 Refills, Maintenance, 10/06/22 9:10:00 EST, Tablet, [facility], Partial fill upon patient request if the prescription is for a schedule II opioid drug., 166, cm, 10/06/22 8:31:00 E... Start Date: 10/06/22 Status: Ordered carvedilol 25 mg oral tablet 25 mg, 1, tablet, By Mouth, 2 times a day, # 180 tablet, Refills 0, Tot. Refills 0, Maintenance, 02/10/23 8:50:00 EDT, Route to Pharmacy Electronically, [facility]/pharmacy #[id number], Partial fill upon patient request if the prescription is for a schedule II opi... Start Date: 02/10/23 Status: Ordered glipiZIDE 10 mg oral tablet 1 tablet = 10 mg, By Mouth, 2 times a day, # 180 tablet, 11 Refills, Maintenance, 09/22/22 16:41:00EST, Tablet, [facility], Partial fill upon patient request if the prescription is for a schedule II opioid drug., 166, cm, 03/30/22... Start Date: 09/22/22 Status: Ordered lisinopril 10 mg oral tablet 10 mg, 1, tablet, By Mouth, Daily, # 90 tablet, Refills 1, Tot. Refills 1, Maintenance, 07/28/23 17:39:00 EST, Route to Pharmacy Electronically, [facility]/pharmacy #[id number], did not tolerate 20 mg dose;, 164.03, cm, 04/29/23 9:31:00 EDT, Height, 55.6, kg, 2... Start Date: 07/28/23 Stop Date: 01/24/24 Status: Ordered metFORMIN 500 mg oral tablet 2 tablet = 1,000 mg, By Mouth, 2 times a day, # 120 tablet, 11 Refills, Maintenance, 10/06/22 9:08:00 EST, Tablet, [facility], Partial fill upon patient request if the prescription is for a schedule II opioid drug., 166, cm, ... Start Date: 10/06/22 Status: Ordered Nitrostat 0.4 mg sublingual tablet 1 tablet = 0.4 mg, Sublingual, Every 5 minutes, PRN Chest Pain, # 100 tablet, 0 Refills, Maintenance, 11/03/19 16:02:00 EST, Tablet, [id number], 166, cm, 11/03/19 15:28:00 EST, [...] Primary Care Member Role: PCP Address: Address: [address] [place] [address] Adult & Pediatric Medicine [place], [place] [address] Name: Kati Gordon RN Position: S RN Member Role: Primary Care Nurse Care Team Related Persons Name: MARK WELLINGTON Address: home [address] [place] [address] Name: FANY CASE Address: home [address] [place] [address]
--- OUTSIDE RECORDS SUMMARY | 2024-03-20 19:13 | XMS_ITS | Continuity of Care Document ---
Author Organization [facility] Address [address] [place] [address]- Care Team Providers Care New Car Inspector Name Role Phone Yessenia Simmons MD Primary Care Physician [phone] [place] [facility] [place] 11[place]12/21 [facility] [address] [place] [address]- Attending Physician: David GUNDERSON, Ravinder Toussaint Admitting [...] Refills, Maintenance, 07/17/21 10:05:00 EDT, Tablet, [id number], Partial fill upon patient request if the prescription is for a schedule IIopioid drug., 166, cm, 07/17/21 9:36:00 EDT, Height... Start Date: 07/17/21 Status: Ordered carvedilol 12.5 mg oral tablet 12.5 mg, 1, tablet, By Mouth, 2 times a day, # 180 tablet, Refills 11, Tot. Refills 11, Maintenance, 07/17/21 10:05:00 EDT, Route to Pharmacy Electronically, [id number], Partial fill upon patient request if the prescription is for a schedule... Start Date: 07/17/21 Status: Ordered ciclopirox 0.77% topical cream 1 application, Topically, 2 times a day, # 30 Gm, 0 Refills, Maintenance, 01/21/21 9:18:00 EDT, Cream, [id number], Partial fill upon patient request [...] 21:34:00 EDT, 06/26/21 21:34:00 EDT, Tablet, [facility], Partial fill upon patient request if the prescript... Start Date: 06/26/21 Stop Date: 06/21/22 Status: Ordered Eliquis 5 mg oral tablet 1 tablet = 5 mg, By Mouth, 2 times a day, TAKE 1 TABLET BY MOUTH TWICE A DAY, # 180 tablet, 11 Refills, Maintenance, 06/21/22 21:34:00 EDT, Tablet, [id number], Partial fill upon patient request if the prescription is for a schedule II opioid... Start Date: 06/21/22 Status: Ordered glipiZIDE 10 mg oral tablet 1 tablet = 10 mg, By Mouth, 2 times a day, for 90 days, # 180 tablet, 3 Refills, Hard Stop 06/21/2221:35:00 EDT, 06/26/21 21:35:00 EDT, Tablet, [facility], Partial fill upon patient requestif the prescription is for a schedule II opioid shi... Start Date: 06/26/21 Stop Date: 06/21/22 Status: Ordered glipiZIDE 10 mg oral tablet 1 tablet = 10 mg, By Mouth, 2 times a day, # 180 tablet, 11 Refills, Maintenance, 06/21/22 21:35:00EDT, Tablet, [facility], Partial fill upon patient request if the prescription is for a schedule II opioid drug., 166, cm, 04/11/21 8:31:00 ED... Start Date: 06/21/22 Status: Ordered lisinopril 10 mg oral tablet 10 mg, 1, tablet, By Mouth, Daily, # 90 tablet, Refills 6, Tot. Refills 6, Maintenance, 04/11/21 8:49:00 EDT, Route to Pharmacy Electronically, [facility], Partial fill upon patient request if the prescription is for a schedule II opioid drug... Start Date: 04/11/21 Status: Ordered metFORMIN 500 mg oral tablet 2 tablet = 1,000 mg, By Mouth, 2 times a day, # 120 tablet, 3 Refills, Maintenance, 11/11/20 15:58:00 EST, Tablet, [facility], Partial fill upon patient request if the prescription is for a schedule II opioid drug., 166, cm, 11/03/19 15:28:00... Start Date: 11/11/20 Status: Ordered Nitrostat 0.4 mg sublingual tablet 1 tablet = 0.4 mg, Sublingual, Every 5 minutes, PRN Chest Pain, # 100 tablet, 0 Refills, Maintenance, 11/03/19 16:02:00 EST, Tablet, [facility], 166, cm, 11/03/19 15:28:00 EST, [...]
[2024-03-20 19:14] LABS: Influenza A PCR NEGATIVE (Negative); Influenza B PCR NEGATIVE (Negative); Resp Syncy Virus RNA Qual PCR NEGATIVE (Negative); SARS COV2 PCR INHOUSE NEGATIVE (Negative)
--- OUTSIDE RECORDS SUMMARY | 2024-03-20 19:14 | XMS_ITS | Continuity of Care Document ---
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 Name Role Phone Troy GUNDERSON, Yessenia Primary Care Physician Encounter [facility] [place] Date(s): 02/08/23 - 02/11/[address] [id number] Discharge Disposition: A-D/C Home Attending Physician: Floyd Moreno MD Admitting Physician: Kimberly Parker MD Referring Physician: Not on Staff, Referring MD Allergies, Adverse Reactions, Alerts No Known Allergies Immunizations Given and Recorded Vaccine Date Status Refusal Reason [id number] 12y+ bivalent booster vax 07/29/22 Given influenza [...] 11 Refills, Maintenance, 10/06/22 9:10:00 EST, Tablet, [facility], Partial fill upon patient request if the prescription is for a schedule II opioid drug., 166, cm, 10/06/22 8:31:00 E... Start Date: 10/06/22 Status: Ordered carvedilol 12.5 mg oral tablet 12.5 mg, Tablet, By Mouth, 02/11/23 9:00:00 EDT Start Date: 02/11/23 Stop Date: 02/11/23 Status: Completed carvedilol 25 mg oral tablet 25 mg, 1, tablet, By Mouth, 2 times a day, # 180 tablet, Refills 0, Tot. Refills 0, Maintenance, 02/10/23 8:50:00 EDT, Route to Pharmacy Electronically, [facility]/pharmacy #[id number], Partial fill upon patient request if the prescription is for a schedule II opi... Start Date: 02/10/23 Status: Ordered Eliquis 5 mg oral tablet 1 tablet = 5 mg, By Mouth, 2 times a day, TAKE 1 TABLET BY MOUTH TWICE A DAY, # 180 tablet, 11 Refills, Maintenance, 06/21/22 21:34:00 EDT, Tablet, [facility] [id number] [facility], Partial fill upon patient request if the prescription is for a schedule II opioid... Start Date: 06/21/22 Status: Ordered glipiZIDE 10 mg oral tablet 1 tablet = 10 mg, By Mouth, 2 times a day, # 180 tablet, 11 Refills, Maintenance, 09/22/22 16:41:00EST, Tablet, [facility], Partial fill upon patient request if the prescription is for a schedule II opioid drug., 166, , 03/30/22... Start Date: 09/22/22 Status: Ordered lisinopril 20 mg oral tablet 20 mg, Tablet, By Mouth, 02/11/23 9:00:00 EDT Start Date: 02/11/23 Stop Date: 02/11/23 Status: Completed lisinopril 20 mg oral tablet 20 mg, 1, tablet, By Mouth, Daily, # 30 tablet, Refills 2, Tot. Refills 2, Maintenance, 01/27/23 9:10:00 EDT, Route to Pharmacy Electronically, [facility]/pharmacy #[id number], Partial fill upon patient request if the prescription is for a schedule II opioid drug.... Start Date: 01/27/23 Status: Ordered metFORMIN 500 mg oral tablet 2 tablet = 1,000 mg, By Mouth, 2 times a day, # 120 tablet, 11 Refills, Maintenance, 10/06/22 9:08:00 EST, Tablet, [facility], Partial fill upon patient request if the prescription is for a schedule II opioid drug., 166, cm, ... Start Date: 10/06/22 Status: Ordered Nitrostat 0.4 mg sublingual tablet 1 tablet = 0.4 mg, Sublingual, Every 5 minutes, PRN Chest Pain, # 100 tablet, 0 Refills, Maintenance, 11/03/19 16:02:00 EST, Tablet, [id number], 166, cm, 11/03/19 15:28:00 EST, Height, 65.3,kg, 11/01/19 22:48:00 EST, Dry Weight Start Date: 11/03/19 Stop Date: 12/03/19 Status: Ordered Problem List Condition Confirmation Course Effective Dates Status H ealth Status Informant Atrial fibrillation Confirmed Active Diabetes mellitus Confirmed Active Ischemic cardiomyopathy Confirmed Active Hyperlipidemia Confirmed Active Hypertension Confirmed Active Results Radiology Reports * Exam Date Time Procedure Performing Provider Status 02/08/23 7:14 PM Chest 2 Views Frontal and Lat Luzma Montgomery; Auth (Verified) Notes: (Chest 2 Views Frontal and Lat) Reason For Exam: Chest Pain;Other: RESULT: Chest 2 Views Frontal and Lat Chest 2 Views Frontal and Lat HX OF PRESENT ILLNESS: Pt has been lethargic dizzy weak for the past few days. Pt has extensive cardiac history; Reason: Other:; Chest Pain; Clinical Question(s): CHF / CHF COMPARISON: 11/01/2019 FINDINGS: LINES AND TUBES: Dual-lead right subclavian pacer wires are intact. LUNGS AND PLEURA: Clear lungs. Normal pulmonary vascularity. No pleural effusion. No pneumothorax. HEART, MEDIASTINUM AND JAIME: Heart is normal in size. Aorta is mildly calcified. BONES AND SOFT TISSUES: No acute abnormality. Status-post median sternotomy. IMPRESSION: No evidence of acute abnormality. WSN: [id number] Ordering Physician: Quang Manuel Dictated By: Garret Kaiser MD Dictated Date/Time: 02/08/23 7:15 pm Reviewed By: Garret Kaiser MD Signed By: Garret Kaiser MD Signed Date/Time: 02/08/23 7:15 pm Transcribed By: LEOPOLDO Transcribed Date/Time: 02/08/23 7:15 pm Vital Signs Most recent to oldest [Reference Range]: 1 2 3 Height 165 cm (02/11/23 11:41 AM) 165 cm (02/11/23 7:23 AM) 165 cm (02/11/23 4:57 AM) Weight 64 kg (02/08/23 11:24 PM) 64.9 kg (02/08/23 11:08 PM) Oxygen Saturation [94-100 %] 99 % (02/11/23 11:41 AM) 95 % (02/11/23 7:23 AM) 96 % (02/11/23 4:57 AM) Pulse Rate [55-90 bpm] 61 bpm (02/11/23 11:41 AM) 66 bpm (02/11/23 10:25 AM) 60 bpm (02/11/23 7:23 AM) Body Mass Index [18.5-24.99 kg/m2] 23.51 kg/m2 (02/08/23 11:24 PM) 23.84 kg/m2 (02/08/23 11:08 PM) Blood Pressure [90-138/55-84 mm Hg] 138/65mm Hg (02/11/23 11:41 AM) 152/92mm Hg *H* (02/11/23 10:25 AM) 152/92mm Hg *H* (02/11/23 10:25 AM) Respiratory Rate [16-30 br/min] 17 br/min (02/11/23 11:41 AM) 18 br/min (02/11/23 7:52 AM) 18 br/min (02/11/23 7:23 AM) Temperature [96.8-100.4 DegF] 97.8 DegF (02/11/23 11:41 AM) 98.2 DegF (02/11/23 7:23 AM) 97.7 DegF (02/11/23 4:57 AM) Liters per Minute 3 L/min (02/09/23 7:34 AM) Mode of Delivery (Oxygen) Room air (02/11/23 11:41 AM) Room air (02/11/23 7:23 AM) Room air (02/11/23 4:57 AM) Blood pressure sites Arm, right (02/11/23 11:41 AM) Arm, left (02/11/23 7:23 AM) Arm, right (02/11/23 4:57 AM) Temperature Route Oral (02/11/23 11:41 AM) Oral (02/11/23 7:23 AM) Oral (02/11/23 4:57 AM) Dry Weight 64.9 kg (02/08/23 11:08 PM) Weight Obtained Via Bed scale (02/08/23 11:24 PM) Bed scale (02/08/23 11:08 PM) Social History Social History Type Response Smoking Status Never smoker entered on: 02/12/16 Sex Admission evaluation note * Elena GUNDERSON, Kimberly Santamaria: RANDALL Galvan MD, Yanet: PERFORM Event Display: Admission Note Authored Date: [id number] Patient: ??SOREN BECKHAM ? Age:??82 Years?Sex:??Male?:??1940?? Chief Complaint/Reason for Consultation Weakness/dizziness/lethargy History of Present Illness Patient is an 82 year old with hx of T2DM on metformin, afib on anticoagulation, HLD, HTN, extensive history of coronary artery disease (history of grafts, CABG in 2008,??most recent cath 2018), history of HFrEF (reported as 40 to 45%??in cardiology note,??no echo recorded in??chart) who presents with chest pain. ?? HPI: For the past??few weeks patient has had increased fatigue and worsening dyspnea on exertion. ??Was seen by cardiology on 02/01.?? Ordered for repeat echo and lab work. Lisinopril increased at that visit.?? At that time he was??not having any??chest pain.?Over the weekend patient continued tofeel weak. ??This morning??patient decided to take a walk to see if you??feel any better. ??Upon returning from his walk patient had??substernal chest pain with associated sweating. Waldron??weak and asthough he needed to void. This felt similar to previous heart attacks. Patient went to rest on couch.??Chest pain improved with??rest. Informed daughter of??episode and she called EMS who brought patient to the??emergency department.? In ED: On arrival blood pressure elevated to 160/80,??improved most recently 133/77. ??Afebrile, no??tachypnea or tachycardia.?? Patient is on beta- latha.?? Labs with??mild normocytic anemia, elevated glucose to 360.?? Most recent A1c was 12%.?? ProBNP??was??711??at financial associate??last week - no others in system.?? Troponin??in the ED??elevated to 26 repeat was 22. ??EKG??with inferolateral T-Wave inversions similar to 2020, no evidence of new ischemia. ??Aspirin load in ED. 1L fluids. Chest x-ray??normal no effusions. ?? At Bedside:??Above history confirmed with patient and??daughter. ??Both are very perplexed by his??worsening diabetes, no changes to diet or medications. ??Takes medications regularly.?Has had lower extremity swelling recently, but none presently. ??It was felt at the time this was possibly due to his??increase in??lisinopril. ??Remains chest pain-free.?Asymptomatic currently. Review of Systems Constitutional: + fatigue No fevers, chills Eyes: No changes in vision ENT: No difficulty swallowing or hemoptysis Cardiovascular: see above. denies PND, orthopnea, LE swelling Respiratory: no SOB, cough or wheezes Gastrointestinal: No abdominal pain, nausea, vomiting, diarrhea, or constipation Genitourinary: +dysuria - no burning but does have hesitancy Musculoskeletal: No stiffness or swelling Integumentary: no rashes Neurological: no headaches + dizziness?? + Reports 2 falls in the last month secondary to weakness. Endocrine:??+polyuria and??polydipsia ?? All others negative as per HPI Objective Measurements?? Height: 165 cm (02/08/23) Weight: 64 kg (02/08/23) Dry Weight: 64.9 kg (02/08/23) Body Mass Index: 23.51 kg/m2 (02/08/23) ? Vital Signs?? Temperature: 97.9 DegF (02/08/23 23:24:00) Temperature Route: Oral (02/08/23 23:24:00) Pulse Rate: 74 bpm (02/08/23 23:24:00) Respiratory Rate: 20 br/min (02/08/23 23:24:00) Systolic Blood Pressure:??157 mm Hg??High (02/08/23::00) Diastolic Blood Pressure:??103 mm Hg??High (02/08/23:24:) Blood pressure sites: Arm, right (02/08/23::00) Mean Arterial Pressure: 121 mm Hg (02/08/23:24:00) Pulse Pressure: 54 mm Hg (02/08/23:24:00) Oxygen Saturation: 99 % (02/08/23:24:00) Mode of Delivery (Oxygen): Room air (02/08/23:24:00) Early Warning Score: 2 (02/08/23 23::46) ? Physical Exam General: No acute distress, awake, answers questions appropriately Mental status: AxO x3 HEENT: normocephalic, moist mucus membranes, EOMI Cardio: Regular rate and rhythm, +S1/S2, no murmurs, rubs, or gallops Lungs: Clear to auscultation bilaterally, no wheezes, rales, rhonchi, or crackles Abdomen: soft, non-tender, non-distended, bowel sounds present Skin: No rashes. No jaundice Extremities: No clubbing, cyanosis, or edema. No scleral icterus or jaundice. Psych: Normal mood and affect Assessment/Plan Patient is an 82 year old with hx of T2DM on metformin, afib on anticoagulation, HLD, HTN, extensive history of coronary artery disease (history of grafts, CABG in 2009,??most recent cath 2018), history of HFrEF (reported as 40 to 45%??in cardiology note,??no echo recorded in??chart) who presents with chest pain admitted for ACS rule out. ?? Chest pain, rule out acute myocardial infarction (R07.9):? fatigue Coronary disease (I25.10): HTN HLD Presents with: chest pain and??diaphoresis following exertion this AM currently CP free with no recurrence EKG in ED with evidence of underlying cardiac disease but new new ischemic changes troponin slightly elevated but repeat did not increase bnp slightly elevated at 711, no past values, CXR with no evidence of fluid overload and volume exam euvolemic, no indication for lasix follows with PVC cards, seen 02/01 for fatigue/CHASE ?? Plan: Continue home statin 40mg daily Continue home lisinopril 20mg daily continue home??aspirin 81 mg Add on TSH, T4 outpatient ECHO planned for 02/23 PVC Cardiology consult for AM Trop, EKG and nitro for recurrence of CP ?? Diabetes mellitus (E11.9):?? Worsening DM??control, historically always in 8% but??most recently 12% reports polyuria and polydipsia no changes??to diet. no med non-compliance referred to endo by outpatient PCP ?? Plan: POC TID Urinalysis start lantus 6U, consider continuing at discharge if tolerates well ISS hold home metformin and??glipizide ?? Atrial fibrillation (I48.91): rate controlled.??continue home Eliquis.? Quality measures VTE Prophylaxis:??on Eliquis Code Status:??DNR confirmed with patient at bedside Diet: Cardiac Ongoing Medical Necessity:??ACS rule out Discharge Planning:??Pending cardiac evaluation ? Yanet Gavlan MD MedPeds PGY2 Pager [phone] or [employer] ?? Case seen and discussed with Dr. Parker. ? Attending Attestation: I have seen and evaluated this patient???02/08/2023 on D3 B??after he presented to the emergency department for evaluation after experiencing??postexertional chest??pain with diaphoresis, weakness/unsteady gait??and brief palpitations at home??that were reminiscent of his previous cardiac events??and was found to have??initial elevated blood pressure in the 180s??/ 110s??with pulse in the 80s, normal O2 sat,??hypomagnesemia??with magnesium of 1.2/normal potassium, high-sensitivity troponin of 26 with repeat of 22??and EKG showing??atrial paced rhythm with PACs and some inferolateral??ST depression/T wave inversion??that was relatively unchanged??from previous?admitted with concern for??ACS. ??The patient has had recent exertional dyspnea??leading up to this??andwas seen by his financial associate on 02/01??at which time his blood pressure medications were increased and they were planning to do a repeat echocardiogram. ??He has not had any??signs of decompensation from his??underlying??ischemic cardiomyopathy??and is not on??any diuretics.?? He does have baseline good functional??capacity and reports walking 4 to 6 miles??often??and baseline tolerates this quitewell until he developed some recent exertional dyspnea??and now??has developed??exertional chest kennedy n??raising concern for??escalating angina???possible ACS/unstable angina at this point??we will await cardiology consultation to see if he??needs additional testing such as?? stress testing and/or??cardiac catheterization??as he is eager to maintain his??functional status??but wants to do so safely.?? For now we will continue his home cardiac medications and replace the magnesium optimal.. ??I have discussed the case and its management with the resident and agree with the findings and plan as documented in the resident??s note. ?? [] ? Histories Allergies Allergies ?(Active and Proposed Allergies Only) NKA? (Severity: Unknown severity, Onset: Unknown) ? Past Medical History/Problem List Active Problems?? 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 Past Surgical History Coronary bypass grafting x3 with SOLANO to LAD and reverse saphenous vein graft to posterior lateral ventricular branch of right coronary artery and posterior descending coronary artery, and epiaortic probing of ascending aorta: 08/29/09 AICD placement ? Social History Alcohol Details:??Use: Past. Sober 4 years. Past use disorder. Employment/School Details:??Status: Retired. [employer] Exercise Details:??Self assessment: Good condition??regularly cuts lawn, walks a few miles. Home/Environment Details:??Living situation: Home/Independent. Nutrition/Health Details:??Diet: Regular. Tobacco Details:??Never smoker ? Family History Mother: Cardiovascular disease; Diabetes mellitus Father: Cardiovascular disease; Diabetes mellitus Sister: Cardiovascular disease Brother: Cardiovascular disease Medications Home Medications apixaban (Eliquis 5 mg oral tablet)?1?tab(s)?5?Milligram?By Mouth?2 times a day?TAKE 1 TABLET BY MOUTH TWICE A DAY Aspirin (Ascriptin Enteric)?81?Milligram?By Mouth?Daily Atorvastatin (atorvastatin 40 mg oral tablet)?1?tab(s)?40?Milligram?By Mouth?Daily Carvedilol (carvedilol 12.5 mg oral tablet)?12.5?Milligram?1?tablet?By Mouth?2 times a day Ciclopirox Topical (ciclopirox 0.77% topical cream)?1?asif?Topically?2 times a day GlipiZIDE (glipiZIDE 10 mg oral tablet)?1?tab(s)?10?Milligram?By Mouth?2 times a day Lisinopril (lisinopril 20 mg oral tablet)?20?Milligram?1?tablet?By Mouth?Daily Metformin (metFORMIN 500 mg oral tablet)?2?tab(s)?1,000?Milligram?By Mouth?2 times a day Nitroglycerin (Nitrostat 0.4 mg sublingual tablet)?1?tab(s)?0.4?Milligram?Sublingual?Every 5 minutes?as needed?Chest Pain?for 30?Days ? No diuretic therapy and not on entresto. Results Recent Labs BLOOD COUNT & DIFF WBC 7.8 k/mm3 ()?? 02/08/2023 18:20 RBC 3.93 m/mm3 (Low)?? 02/08/2023 18:20 Hgb 11.8 Gm/dL (Low)?? 02/08/2023 18:20 Hct 36.6 % (Low)?? 02/08/2023 18:20 MCV 93.1 femtoliters ()?? 02/08/2023 18:20 MCH 30.0 pg ()?? 02/08/2023 18:20 MCHC 32.2 g/dL (Low)?? 02/08/2023 18:20 Platelet Count 183 k/mm3 ()?? 02/08/2023 18:20 RDW-SD 41.3 femtoliters ()?? 02/08/2023 18:20 MPV 9.9 femtoliters ()?? 02/08/2023 18:20 Nucleated RBC (Automated) 0.0 #/100 WBC'S ()?? 02/08/2023 18:20 Abs. NRBC 0.0 k/mm3 ()?? 02/08/2023 18:20 Abs. Neut 6.4 k/mm3 ()?? 02/08/2023 18:20 Abs. Lymph 0.8 k/mm3 ()?? 02/08/2023 18:20 Abs. [place] 0.5 k/mm3 ()?? 02/08/2023 18:20 Abs. Eo 0.0 k/mm3 ()?? 02/08/2023 18:20 Abs. Baso 0.0 k/mm3 ()?? 02/08/2023 18:20 Neut % 82.3 % (High)?? 02/08/2023 18:20 Lymph % 10.7 % (Low)?? 02/08/2023 18:20 [place] % 5.8 % ()?? 02/08/2023 18:20 Eos % 0.5 % ()?? 02/08/2023 18:20 Baso % 0.4 % ()?? 02/08/2023 18:20 Imm Gran 0.3 % ()?? 02/08/2023 18:20 Abs. Imm Gran 0.0 k/mm3 ()?? 02/08/2023 18:20 ?? CARDIAC High Sensitivity Troponin (HSTnT) 22 ng/L (High)?? 02/08/2023 20:18 ?? CHEM GENERAL Sodium 137 mmol/L ()?? 02/08/2023 18:20 Potassium 4.5 mmol/L ()?? 02/08/2023 18:20 Chloride 99 mmol/L ()?? 02/08/2023 18:20 Bicarbonate Level 26 mmol/L ()?? 02/08/2023 18:20 Anion Gap 12 ()?? 02/08/2023 18:20 Glucose Level 360 mg/dL (High)?? 02/08/2023 18:20 Glucose, POC 242 mg/dL (High)?? 02/08/2023 23:08 BUN 14 mg/dL ()?? 02/08/2023 18:20 Creatinine-Blood 0.9 mg/dL ()?? 02/08/2023 18:20 Estimated GFR Creatinine 85 ML/MIN/1.73 M2 ()?? 02/08/2023 18:20 Calcium 9.9 mg/dL ()?? 02/08/2023 18:20 Calcium, Ionized pH Corrected 1.23 mmol/L ()?? 02/08/2023 18:20 Magnesium 1.2 mg/dL (Low)?? 02/08/2023 18:20 ?? COAG APTT 26.0 seconds ()?? 02/08/2023 18:20 ?? URINE OTHER Est Creatinine Clearance 54.97 mL/min ()?? 02/08/2023 23:17 ?? VIROLOGY COVID-19 by RT-PCR NEGATIVE ()?? 02/08/2023 18:30 ? Urinalysis Est Creatinine Clearance: 54.97 mL/min (23:17) ?? Microbiology ?? COVID-19 (Novel Coronavirus), Rapid PCR?? Completed?? Source: Nasal Body Site: Nose Collected Dt/Tm: 02/08/2023 18:22 Last Updated Dt/Tm: 02/08/2023 21:11 ? Imaging(s) ?Chest 2 Views Frontal and Lat ?? 02/08/2023 19:14??by Garret Kaiser MD ?IMPRESSION: ?? No evidence of acute abnormality. ? EKG study * Event Display: ECG 12-Lead Authored Date: Please click on pdf link to open report * Event Display: ECG 12-Lead Authored Date: Ventricular Rate: 60 BPM Atrial Rate: 357 BPM P-R Interval: 306 ms QRS Duration: 100 ms Q-T Interval: 476 ms QTC Calculation(Bazett): 476 ms R [place]: 1 degrees T [place]: 166 degrees Atrial-paced rhythm with prolonged AV conduction ST and T wave abnormality, consider anterolateral ischemia Abnormal ECG When compared with ECG of 08-FEB-2023 20:51, No significant change was found Confirmed by EDIE CRUZ MD ([id number]) on 02/10/2023 6:53:56 PM [place]: EDIE CRUZ MD * Event Display: ECG 12-Lead Authored Date: Please click on pdf link to open report * Event Display: ECG 12-Lead Authored Date: Ventricular Rate: 62 BPM Atrial Rate: 62 BPM P-R Interval: 262 ms QRS Duration: 100 ms Q-T Interval: 442 ms QTC Calculation(Bazett): 448 ms P [place]: 67 degrees R [place]: 18 degrees T [place]: 215 degrees Atrial-paced rhythm with prolonged AV conduction Left ventricular hypertrophy with repolarization abnormality ( Heber product ) Abnormal ECG When compared with ECG of 08-FEB-2023 18:28, No significant change was found Confirmed by EDIE CRUZ MD ([id number]) on 02/10/2023 6:53:26 PM [place]: EDIE CRUZ MD * Event Display: ECG 12-Lead Authored Date: [id number] Please click on pdf link to open report * Event Display: ECG 12-Lead Authored Date: Ventricular Rate: 62 BPM Atrial Rate: 62 BPM P-R Interval: 260 ms QRS Duration: 104 ms Q-T Interval: 448 ms QTC Calculation(Bazett): 454 ms P [place]: 88 degrees R [place]: 16 degrees T [place]: 176 degrees Atrial-paced rhythm with prolonged AV conduction with Premature atrial complexes ST and T wave abnormality, consider inferolateral ischemia Abnormal ECG When compared with ECG of 01-NOV-2019 11:16, Premature ventricular complexes are no longer Present Premature atrial complexes are now Present Confirmed by EDIE CRUZ MD ([id number]) on 02/10/2023 6:52:58 PM [place]: EDIE CRUZ MD Heart * Event Display: Echocardiogram - Complete Authored Date: [id number] Transthoracic Echocardiography Report (TTE) Patient Demographics Patient Name SOREN BECKHAM Date of Study 02/09/2023 Corporate Gender Male Facility Race Ethnicity or Date of 1940 Height: 64.96 inches Age 82 year(s) Weight: 141.1 pounds Accession Number [id number] BSA: 1.7 m2 Room Number [id number] BMI: 23.51 kg/m2 Referring Physician Dylon He MD Interpreting Jacklyn Mcmahon MD Physician Roll Skinner Bhavya Palacios RDCS Indications Chest pain. Clinical History Atrial fibrillation. Diabetes Mellitus. Hyperlipidemia. Hypertension. Study Data Type of Study TTE procedure:Echo Complete-(Doppler, Colorflow) with Contrast. Procedure Information:Definity was administered by Bhavya Palacios RDCS. Study Date02/09/2023 Start Time: 09:28 AM Study Location: [facility] [place] Adult Echo Study Status: Bedside Patient Status: Routine Technical Quality: Adequate Blood Pressure:110/66 mmHg EKG: Within normal limits HR: 65 bpm Contrast Medium: Definity. Amount - 2 ml Allergies - No known allergies. - No known allergies. 2D Measurements LV Diastolic Dimension: 5.3 cm LV Systolic Dimension: 4.3 cm LV Septum Diastolic: 1.3 cm LV PW Diastolic: 1.3 cm AO Root Dimension: 4 cm LA ESV (BP):98.5 ml LVOT Stroke Volume: 41.13 ml LA ESV Index: 58 ml/m2 Stroke Volume Index24.19 ml/m2 LVOT: 2 cm Cardiac Index:1.57 l/min/m2 Ascending Aorta:3.3 cm Doppler Measurements AV Peak Velocity: 73 cm/s MV Peak E-Wave: 62.3 cm/s AV Peak Gradient: 2.13 mmHg MV Peak A-Wave: 49.7 cm/s AV Mean Gradient: 1 mmHg MV E/A Ratio: 1.25 AV VTI:16.8 cm MV P1/2t: 81 msec LVOT Peak Velocity: 52.9 cm/s LVOT VTI13.1 cm MV Deceleration Time: 278 msec AV Area (Continuity):2.45 cm2 MV Area (PHT): 2.72 cm2 TR Velocity:185 cm/s PV Peak Velocity: 81.3 cm/s TR Gradient:13.69 mmHg PV Peak Gradient: 2.64 mmHg E' Septal Velocity: 3.15 cm/s E' Lateral Velocity: 6.74 cm/s E/Med E':[id number] E/Lat E':[id number] Cardiac Anatomy Left Ventricle/Interventricular Septum The left ventricular size is normal. There is mild concentric left ventricular hypertrophy. Indeterminate diastolic function. The basal to mid inferior wall is akinetic . The basal to mid inferolateral wall is akinetic . The distal septal wall is akinetic . The basal to mid lateral wall is akinetic . The apex is hypokinetic with contrast evidence of reduced flow/no thrombus seen . There is hypokinesis of the septum. The left ventricular ejection fraction is 25-30 %. Left Atrium/Interatrial Septum The left atrium is dilated. Interatrial septum is not well seen. Aortic Valve The aortic valve is trileaflet . The aortic valve appears mildly thickened. There is mild aortic regurgitation. There is no aortic stenosis. Mitral Valve The mitral valve appears thickened. The mitral valve appears mildly calcified. There is no significant mitral stenosis. There is trace to mild mitral regurgitation. Aorta There is mild dilation of the aortic root . Right Ventricle The right ventricle is poorly visualized. A pacer/ICD wire is seen in the right ventricle. Right ventricular systolic function is mildly reduced. Right Atrium The right atrium is dilated. Pulmonic Valve The pulmonic valve appears grossly normal. There is moderate pulmonic regurgitation. Tricuspid Valve The tricuspid valve is normal in structure and function. There is mild regurgitation. Pumonary Artery The pulmonary artery pressure is within normal limits. Venous Structures The inferior vena cava appears normal. Pericardium/Extracardiac There is no significant pericardial effusion. Summary The left ventricular size is normal. There is mild concentric left ventricular hypertrophy. Indeterminate diastolic function. The basal to mid inferior wall is akinetic . The basal to mid inferolateral wall is akinetic . The distal septal wall is akinetic . The basal to mid lateral wall is akinetic . The apex is hypokinetic with contrast evidence of reduced flow/no thrombus seen . There is hypokinesis of the septum. The left ventricular ejection fraction is 25-30 %. There is mild dilation of the aortic root . The right ventricle is poorly visualized. A pacer/ICD wire is seen in the right ventricle. Right ventricular systolic function is mildly reduced. There is mild aortic regurgitation. Comparison No prior study available for comparison. Signature * Event Display: Echocardiogram - Complete Authored Date: Cardiology * Event Display: Stress Nuc with Regadenoson Authored Date: Please click on pdf link to open report * Event Display: Cardiac Rhythm Strips Authored Date: * Event Display: Cardiac Rhythm Strips Authored Date: Hospital Progress note * Glenda Patterson RN: PERFORM, SIGN, VERIFY Event Display: Progress Note Hospital Authored Date: Patient: SOREN BECKHAM Age: 82 years Sex: Male : 1940 Associated Diagnoses: None Author: Glenda Patterson RN Findings pt returned from stress test, AM meds admin at this time. * Dylon He MD: PERFORM, SIGN, VERIFY Event Display: Progress Note Hospital Authored Date: [id number] Patient: SOREN BECKHAM Age: 82 years Sex: Male : 1940 Associated Diagnoses: None Author: Dylon He MD No issues overnight Pacing with occasional PVCs on monitor Physical Examination Sitting in chair daughter present No JVD at 90 degrees Clear lungs No murmur No edema Results Review Today's Results LABORATORY 02/11/2023 1:24 EDT WBC 5.1 k/mm3 Hgb 11.6 Gm/dL L Hct 35.2 % L CICU Vital Signs 02/11/2023 7:49 EDT Cardiac Rhythm Paced 02/11/2023 7:23 EDT Systolic Blood Pressure 119 mm Hg Diastolic Blood Pressure 72 mm Hg 02/11/2023 4:57 EDT Systolic Blood Pressure 114 mm Hg Diastolic Blood Pressure 65 mm Hg (Selected) Inpatient Medications Ordered Eliquis: 5 mg, Tablet, By Mouth, 2 times a day, Routine, 02/08/23 23:50:00 EDT Insulin LISPRO Sliding Scale: 2-10 units, Injection, Subcutaneous Injection, 3 times a day before meals, Routine, 02/09/23 7:00:00 EDT Lantus Inj: 10 units, Injection, Subcutaneous Injection, Daily at bedtime, Routine, 02/08/23 23:45:00 EDT Nitrostat 0.4 mg sublingual tablet: 0.4 mg, Tablet, Sublingual, Every 5 minutes, PRN for Chest Pain, Routine, 02/08/23 23:51:00 EDT aspirin 81 mg oral tablet, chewable: 81 mg, Chew Tablet, By Mouth, Daily, Routine, 02/09/23 9:00:00EDT atorvastatin 40 mg oral tablet: 40 mg, Tablet, By Mouth, Daily, Routine, 02/09/23 9:00:00 EDT carvedilol 12.5 mg oral tablet: 12.5 mg, Tablet, By Mouth, 2 times a day, Routine, 02/08/23 23:51:00 EDT lisinopril 20 mg oral tablet: 20 mg, Tablet, By Mouth, Daily, Routine, 05/23/23 9:00:00 EDT Impression and Plan 82 yo S/P CABG ,ischemic cardiomyopathy. Reduced EF. Comes in with weeks of fatigue ,some dyspnea and admits to occasional CP. HS Troponins essentially normal. Hard to know if there truly is a drop in EF from past because old echo images are not available. Similar wall motion abnormalities were described. Awaiting the rest of his Lexiscan Nuclear stress test. Further plans after the result * Glenda Patterson RN: PERFORM, SIGN, VERIFY Event Display: Progress Note Hospital Authored Date: Patient: SOREN BECKHAM Age: 82 years Sex: Male : 1940 Associated Diagnoses: None Author: Glenda Patterson RN Findings pt off the floor to stress test Radiology * Event Display: NM Myocard Perf SPECT Multi Authored Date: * Event Display: NM Myocard Perf SPECT Multi Authored Date: Myocardial Perfusion Imaging Demographics Patient Name CHAPINCITO DOTY Gender Male [employer] Room Number [id number] Height 65 inches Date of 1940 Weight 141.1 pounds Age 82 year(s) BSA 1.7 m2 Accession Number [id number] BMI 23.51 kg/m2 Date of study 02/10/2023 Resident Referring Physician Dylon He MD Interpreting Garret Anderson NM Technologist Barbi Woodruff Physician MD Una Rodriguez Procedure Admit Source:Emergency department. Procedure Type: Myocardial Perfusion Imaging:NM Myocardial Perfusion Spect Multi Indications: Chest pain. Risk Factors The patient risk factors include:prior PCI;prior CABG;hypercholesterolemia, hypertension, family history of premature CAD, diabetes mellitus and prior NM . Stress Protocols Resting ECG Sinus rhythm. AV paced rhythm. Nonspecific S-T wave changes. Resting HR:64 bpm Resting BP:150/80 mmHg Pre-stress physical exam: The patient has a pacemaker/AICD. The patient's medications include Eliquis, Aspirin, Atorvastatin, Carvedilol, Lantus, Lispro, Lisinopril, Nitroglycerin. Stress Protocol:Pharmacologic - IV Regadenoson Dose: 0.4 mg Peak HR:78 bpm HR response: Not assessed Peak BP:150/80 mmHg (pharmacologic study) Predicted HR: 138 bpm HR recovery: Not Assessed % of predicted HR: 57 (Pharmacologic Study) Test duration: 1 min BP response: Normal resting BP with Reason for termination:Protocol complete appropriate response Functional capacity:Not assessed HR/BP product:[id number] Time of RP Injection:00:55 min Chest pain:No chest pain ST Changes:No changes from baseline Arrhythmias Ventricular Premature Beats, Isolated. Atrial Premature Beats, Isolated. Symptoms Nausea. Complications Procedure complication was none. Stress Interpretation Pharmacologic study only. Physiologic response not assessed - pharm stress. EKG nondiagnostic baseline ST abnormalities. Imaging Protocols - Two Day Rest Stress Isotope:Tc99m Sestamibi Isotope: Tc99m Sestamibi Isotope dose:9.7 mCi IV Isotope dose:26.5 mCi IV Date:02/10/2023 Date:02/11/2023 Time to Rest Imagin minutes Time to Stress Imagin minutes Technique: Gated Technique: Gated Supine Supine Perfusion Images Rest and Stress: +-------+---------+--------+----+---------+---------+ !Segment!Perfusion!Severity!Wall!Artifact !Artreason! +-------+---------+--------+----+---------+---------+ Imaging Results Summed scores - Summed stress score: 8 - Summed rest score: 8 - Summed difference score: 0 Rest ejection Stress ejection Ejection fraction:43 % Ejection fraction:38 % EDV :107 ml EDV :177 ml ESV :61 ml ESV :110 ml Stroke volume :46 ml Stroke volume :67 ml LV mass :150 gr LV mass :186 gr Conclusions Summary 1. Myocardial perfusion imaging stress test performed with Regadenoson infusion reveals no evidence of stress-induced ischemia. There is a small-moderate size, severe, fixed apex and apical anterior segment defect with severe motion abnormality consistent with distal LAD territory scar . There is a moderate size, severe, fixed defect at the basal-mid inferior wall with moderate motion abnormality consistent with RCA territory scar. 2. LV global function is mildly-moderately with an E.F. of 43% at rest and 38 % after IV administration of Regadenoson. 3. EKG portion of the stress test is reported separately. Signatures Note * Shiela Echavarria RN: PERFORM Event Display: Discharge/Transfer Note Hospital Authored Date: Nursing Discharge Note Entered On: 02/11/2023 17:20 EDT Performed On: 02/11/2023 17:20 EDT by Shiela Echavarria RN Nursing Discharge Note 2 Discharge Time : 02/11/2023 17:20 EDT Discharge Level of Care at Discharge : Home/Shelter/Foster Care Patient Left Unit Via : Wheelchair Patient Accompanied Off Unit with : Responsible adult DC Instructions Provided & Signed by Pt : Yes Patient Understands D/C Instructions : Yes Patient Instructions Discharge Signed : Yes Did Pt have Specialty Bed or Wound Vac : No Shiela Echavarria RN - 02/11/2023 17:20 EDT * Floyd Moreno MD: PERFORM Event Display: Discharge/Transfer Note Hospital Authored Date: Patient: ??SOREN BECKHAM ? Age:??82 Years?Sex:??Male?:??1940?? Patient Information Discharge Location: B Primary Care Physician: Yessenia Simmons MD Admit Date/Time: 02/08/23 17:31 Discharge Disposition Discharge Disposition: ?? Discharge Diagnosis Atrial fibrillation (I48.91) Diabetes mellitus (E11.9) Hyperlipidemia (E78.5) Hypertension (I10) Chest pain, rule out acute myocardial infarction (R07.9) Coronary disease (I25.10) Ruled out for myocardial infarction (Z03.89) ?? _ Discharge Medications apixaban (Eliquis 5 mg oral tablet)?1?tab(s)?5?Milligram?By Mouth?2 times a day?TAKE 1 TABLET BY MOUTH TWICE A DAY Aspirin (Ascriptin Enteric)?81?Milligram?By Mouth?Daily Atorvastatin (atorvastatin 40 mg oral tablet)?1?tab(s)?40?Milligram?By Mouth?Daily Carvedilol (carvedilol 25 mg oral tablet)?25?Milligram?1?tablet?By Mouth?2 times a day GlipiZIDE (glipiZIDE 10 mg oral tablet)?1?tab(s)?10?Milligram?By Mouth?2 times a day Lisinopril (lisinopril 20 mg oral tablet)?20?Milligram?1?tablet?By Mouth?Daily Metformin (metFORMIN 500 mg oral tablet)?2?tab(s)?1,000?Milligram?By Mouth?2 times a day Nitroglycerin (Nitrostat 0.4 mg sublingual tablet)?1?tab(s)?0.4?Milligram?Sublingual?Every 5 minutes?as needed?Chest Pain?for 30?Days ? Future Appointments 2022 8:40 AM EDT ?? With: Troy GUNDERSON, [facility] Where: [facility] [address] [place] [address]- Status: Pending Objective Assessment and Plan Atrial fibrillation (I48.91):?82 year old with hx of T2DM on metformin, afib on anticoagulation,HLD, HTN, extensive history of coronary artery disease (history of grafts, CABG in 2008, most recent cath 2018), history of HFrEF (reported as 40 to 45% in cardiology note, no echo recorded in chart)who presents with chest pain??and was??admitted for ACS rule out. ?? Chest pain,??based on presentation and history atypical and noncardiac although patient has significant??history of coronary artery disease therefore an echocardiogram was completed Echo showed??evidence??of worsening EF??25% Discussed with Dr. He??recommended increasing??medical therapy, Coreg has been increased to 25mg twice daily patient is also on lisinopril 20 mg daily??cardiology is planning to do an outpatient??follow-up and a possible introducing Entresto,??I called the pharmacy and tried to arrange for Entresto on discharge however??the cost was??more than $120??and not affordable therefore patient willbe continued on lisinopril. Stef with cardiology they recommended??a nuclear stress test which will be completed today??if??stress test is unremarkable patient will be discharged home Dr. Hendrickson will follow as an outpatient Only ACS has been ruled out patient??troponins were 26 and 22??no significant EKG changes Continue with Eliquis and home medications as before including statins ?HTN /HLD As mentioned above Continue ASA 81mg, Atorvastatin 40mg daily, lisinopril 20mg daily ? Diabetes mellitus (E11.9):?? Resume home medications ? Atrial fibrillation (I48.91): rate controlled. continue Eliquis.? Position??Home if stress test is negative patient will??follow-up with cardiology Dr. Hendrickson??outpatient ?? Discharge Planning:? Vital Signs?? Temperature: 97.8 DegF (02/11/23 11:41:00) Temperature Route: Oral (02/11/23 11:41:00) Pulse Rate: 61 bpm (02/11/23 11:41:00) Respiratory Rate: 17 br/min (02/11/23 11:41:00) Systolic Blood Pressure: 138 mm Hg (02/11/23 11:41:00) Diastolic Blood Pressure: 65 mm Hg (02/11/23:41:00) Blood pressure sites: Arm, right (02/11/23:41:00) Mean Arterial Pressure: 89 mm Hg (02/11/23 11:41:00) Pulse Pressure: 73 mm Hg (02/11/23 11:41:00) Oxygen Saturation: 99 % (02/11/23:41:00) Mode of Delivery (Oxygen): Room air (02/11/23:41:00) Early Warning Score: 2 (02/11/23 11:41:56) ? . Physical Exam General: [Alert, in no acute cardiopulmonary distress.] Mental Status: [Oriented to person, place and time. Normal affect.] Head: [Normocephalic.] Eyes: [Pupils are equal, round and reactive to light. Extraocular muscles intact.] Ear, Nose and Throat: [Oropharynx clear, mucous membranes moist. Ears and nose without masses, lesions or deformities. Tympanic membranes clear bilaterally. Trachea midline.] Neck: [Supple, Full range of motion.] Respiratory: [Clear to auscultation and percussion. No wheezing, rales or rhonchi.] Cardiovascular: [Heart sounds normal. No thrills. Regular rate and rhythm, no murmurs, rubs or gallops.] Gastrointestinal: [Abdomen soft, non-tender, non-distended. Normal bowel sounds. No pulsatile mass.No hepatosplenomegaly.] Genitourinary: [No costovertebral angle tenderness.] Neurologic: [Cranial nerves II-XII grossly intact. No focal neurological deficits. Deep tendon reflexes +2 bilaterally. Flexor plantar response. Moves all extremities spontaneously. Sensation intact bilaterally.] Skin: [No rashes or lesions. No petechiae or purpura. No edema.] Musculoskeletal: [No cyanosis or clubbing. No gross deformities. Normal range of motion.] Lymphatics: [Palpation of neck reveals no swelling or tenderness of neck nodes. Palpation of groin reveals no swelling or tenderness of groin nodes.] Psychiatric: [Not anxious fully cooperative following commands.] Pending Results Add On Lab Order ordered on 02/08/2023 Add On Lab Order ordered on 02/09/2023 CBC ordered on 02/09/2023 Follow-Up Appointments Added Follow Up ?Time Frame ?Comments Yessenia Simmons MD?1 week Home Health Face to Face ^[facility] Results Discharge Labs BLOOD COUNT & DIFF WBC 5.1 k/mm3 ()?? 02/11/2023 01:24 RBC 3.80 m/mm3 (Low)?? 02/11/2023 01:24 Hgb 11.6 Gm/dL (Low)?? 02/11/2023 01:24 Hct 35.2 % (Low)?? 02/11/2023 01:24 MCV 92.6 femtoliters ()?? 02/11/2023 01:24 MCH 30.5 pg ()?? 02/11/2023 01:24 MCHC 33.0 g/dL ()?? 02/11/2023 01:24 Platelet Count 174 k/mm3 ()?? 02/11/2023 01:24 RDW-SD 41.5 femtoliters ()?? 02/11/2023 01:24 MPV 9.5 femtoliters ()?? 02/11/2023 01:24 Nucleated RBC (Automated) 0.0 #/100 WBC'S ()?? 02/11/2023 01:24 Abs. NRBC 0.0 k/mm3 ()?? 02/11/2023 01:24 Abs. Neut 6.4 k/mm3 ()?? 02/08/2023 18:20 Abs. Lymph 0.8 k/mm3 ()?? 02/08/2023 18:20 Abs. [place] 0.5 k/mm3 ()?? 02/08/2023 18:20 Abs. Eo 0.0 k/mm3 ()?? 02/08/2023 18:20 Abs. Baso 0.0 k/mm3 ()?? 02/08/2023 18:20 Neut % 82.3 % (High)?? 02/08/2023 18:20 Lymph % 10.7 % (Low)?? 02/08/2023 18:20 [place] % 5.8 % ()?? 02/08/2023 18:20 Eos % 0.5 % ()?? 02/08/2023 18:20 Baso % 0.4 % ()?? 02/08/2023 18:20 Imm Gran 0.3 % ()?? 02/08/2023 18:20 Abs. Imm Gran 0.0 k/mm3 ()?? 02/08/2023 18:20 ?? CARDIAC High Sensitivity Troponin (HSTnT) 23 ng/L (High)?? 02/09/2023 00:49 ? CHEM GENERAL Sodium 136 mmol/L ()?? 02/09/2023 00:49 Potassium 4.0 mmol/L ()?? 02/09/2023 00:49 Chloride 101 mmol/L ()?? 02/09/2023 00:49 Bicarbonate Level 26 mmol/L ()?? 02/09/2023 00:49 Anion Gap 9 ()?? 02/09/2023 00:49 Glucose Level 360 mg/dL (High)?? 02/08/2023 18:20 Glucose, POC 115 mg/dL (High)?? 02/11/2023 10:07 BUN 14 mg/dL ()?? 02/09/2023 00:49 Creatinine-Blood 0.8 mg/dL ()?? 02/09/2023 00:49 Estimated GFR Creatinine 87 ML/MIN/1.73 M2 ()?? 02/09/2023 00:49 Calcium 9.9 mg/dL ()?? 02/08/2023 18:20 Calcium, Ionized pH Corrected 1.23 mmol/L ()?? 02/08/2023 18:20 Magnesium 1.5 mg/dL (Low)?? 02/09/2023 00:49 ? COAG APTT 26.0 seconds ()?? 02/08/2023 18:20 ? ENDOCRINE/TUMOR MARKER TSH 1.84 uIU/mL ()?? 02/08/2023 20:18 Free T4 0.99 ng/dL ()?? 02/08/2023 20:18 ?? LIPID STUDIES Cholesterol 119 mg/dL ()?? 02/09/2023 00:49 Triglycerides 55 mg/dL ()?? 02/09/2023 00:49 HDL Cholesterol 40 mg/dL ()?? 02/09/2023 00:49 LDL Cholesterol 68 mg/dL ()?? 02/09/2023 00:49 Non HDL Cholesterol 79 mg/dL ()?? 02/09/2023 00:49 ? UA/URINALYSIS Appear/Color, Urine LIGHT YELLOW ()?? 02/09/2023 05:40 Specific [place], Urine 1.021 ()?? 02/09/2023 05:40 pH, Urine 6.0 ()?? 02/09/2023 05:40 Albumin, Urine TRACE (Abnormal)?? 02/09/2023 05:40 Glucose, Urine 4+ (Abnormal)?? 02/09/2023 05:40 Ketones, Urine NEGATIVE ()?? 02/09/2023 05:40 Bilirubin, Urine NEGATIVE ()?? 02/09/2023 05:40 Hemoglobin, Urine NEGATIVE ()?? 02/09/2023 05:40 Nitrite, Urine NEGATIVE ()?? 02/09/2023 05:40 Leukocyte, Urine NEGATIVE ()?? 02/09/2023 05:40 Urobilinogen NORMAL mg/dL ()?? 02/09/2023 05:40 WBC's, Urine <1 /HPF ()?? 02/09/2023 05:40 RBC's, Urine 2 /HPF ()?? 02/09/2023 05:40 Mucus SLIGHT /LPF ()?? 02/09/2023 05:40 Hold Urine Culture Testing available 48 hours from time of collection. ()?? 02/09/2023 05:40 ? URINE OTHER Est Creatinine Clearance 61.84 mL/min ()?? 02/09/2023 02:51 ? VIROLOGY COVID-19 by RT-PCR NEGATIVE ()?? 02/08/2023 18:30 ? Microbiology ?? COVID-19 (Novel Coronavirus), Rapid PCR?? Completed?? Source: Nasal Body Site: Nose Collected Dt/Tm: 02/08/2023 18:22 Last Updated Dt/Tm: 02/08/2023 21:11 ? 25minutes spent on discharge * Shiela Echavarria RN: PERFORM Event Display: Patient Education/Instruction Authored Date: [id number] Inpatient Adult Discharge Instructions [address] [address] Name: SOREN BECKHAM : 1940 Visit: 02/08/2023 17:31:00 Current Date: 02/11/2023 16:45 Account: [id number] Inpatient Adult Discharge Instructions We would like to thank you for allowing us to assist you with your healthcare needs. The following includes patient education materials and information regarding your injury/illness. Our entire staffstrives to provide an excellent experience for our patients and their families. PLEASE ENSURE YOU FOLLOW-UP PER THE INSTRUCTIONS BELOW! ?? YOUR OPINION IS IMPORTANT TO US! Please complete the survey you may receive by mail or email. Your feedback will be used to make improvements to the healthcare experiences of our patients and their families. Surveys are administered by [employer] ?? If further treatment with your primary care physician or another doctor is recommended, it is important for you to keep the appointment. Call your primary care physician or return to the Emergency Department immediately if your condition worsens, fails to improve, or new symptoms develop. If you need to find a doctor, you can call [facility] for a referral at [phone] or toll free at [phone]) or log in to [email or web address].. ?? You can view and manage your care through the patient portal or by using a health care asif of your choosing. [employer] is a website that allows you to securely view your medical information including your hospital discharge summary, office visit summaries, medications and follow-up visits. You can also request appointments, renew medications, and request access to your medical information using a health care asif of your choosing, or just ask a question. You can enroll at [email or web address] or register during your next office visit. You have been discharged from [facility], Patient Care Unit: D3[facility]. If you have any questions regarding these instructions after you leave, please call us and we will be happy to assist you. [facility] Your Care Team Attending Physician Floyd Moreno MD Consulting Providers Floyd Moreno MD; Mandy GUNDERSON, Teto He MD, Dylon Castillo Discharging Providers Floyd Moreno MD Reason for Your Visit Weakness/dizziness/lethargy Your Diagnosis Atrial fibrillation Diabetes mellitus Hyperlipidemia Hypertension Chest pain, rule out acute myocardial infarction Coronary disease Ruled out for myocardial infarction Weakness or fatigue Tests Performed Below is a partial list of the tests performed during your hospitalization. You may have had other tests and procedures not included in this list. Please discuss all test results with your provider. Basic Metabolic Panel BUN CBC CBC w/ Differential COVID-19 (Novel Coronavirus), Rapid PCR Creatinine Electrolytes FREE T4 GLUCOSE POC High??Sensitivity??Troponin T Ionized Calcium LIPID PANEL Magnesium Level Mg Level PTT Troponin T, High Sensitivity TSH Urinalysis w/hold for Urine Culture XR Chest 2 Views Frontal and Lat Primary Care Provider Yessenia Simmons MD Advance Directive . Discharge Vitals Temperature: 97.8 DegF Height: 165 cm Pulse Rate: 61 bpm Weight: 64 kg Respiratory Rate: 17 br/min Body Mass Index: 23.51 kg/m2 Systolic Blood Pressure: 138 mm Hg Body surface area: 1.71 Diastolic Blood Pressure: 65 mm Hg ?? Oxygen Saturation: 99 % ?? Studies Pending All tests and labs ordered during this hospital stay have been completed unless listed below. Please discuss all pending results with your provider listed above in these instructions. ?? Add On Lab Order CBC What to do next Instructions From Your Doctor Discharge Orders Scheduled Follow-Up Appointments 2022 8:40 AM EDT ?? With: Yessenia Simmons MD Where: [facility] [address] [place] [id number]- Status: Pending You Need to Schedule the Following Appointments Follow Up with??Yessenia Simmnos MD When:??Within 1 week Discharge Medications SOREN BECKHAM :1940 Visit Date:02/08/2023 Medications: Please continue your medications until treatment is completed or stopped by your provider. Medications not listed below should be discontinued. Discuss any questions related to medications with your provider. What How Much When Instructions Next Dose Changed Carvedilol (carvedilol 25 mg oral tablet) 1 tab(s) Oral Twice a day Pickup at [facility]/pharmacy #[id number] 02/11 PM Unchanged apixaban (Eliquis 5 mg oral tablet) 1 tab(s) Oral Twice a day TAKE 1 TABLET BY MOUTH TWICE A DAY ?? 02/11 PM Unchanged Aspirin (Ascriptin Enteric) 81 Milligram Oral Daily 02/12 Unchanged Atorvastatin (atorvastatin 40 mg oral tablet) 1 tab(s) Oral Daily 02/12 Unchanged GlipiZIDE (glipiZIDE 10 mg oral tablet) 1 tab(s) Oral Twice a day resume as prescribed Unchanged Lisinopril (lisinopril 20 mg oral tablet) 1 tab(s) Oral Daily 02/12 Unchanged Metformin (metFORMIN 500 mg oral tablet) 2 tab(s) Oral Twice a day resume as prescribed Unchanged Nitroglycerin (Nitrostat 0.4 mg sublingual tablet) 1 tab(s) Sublingual Every 5 minutes as needed for Chest Pain Duration: 30 Days as needed Pharmacy Information [facility]/pharmacy #[id number]: [address], [place] [phone] ?? What How Much When Comments Stop Taking Ciclopirox Topical (ciclopirox 0.77% topical cream) 1 asif Topically Twice a day Test Results Below is a partial list of the most recent Laboratory test results done prior to this discharge. You may have had other tests and procedures not included in this list. Please discuss all test resultswith your provider. Est Creatinine Clearance - 61.84 mL/min (02/09/2023) Basic Metabolic Panel (02/08/2023) ???Sodium - 137 mmol/L???Potassium - 4.5 mmol/L???Chloride - 99 mmol/L???Bicarbonate Level - 26 mmol/L???Anion Gap - 12???Glucose Level - 360 mg/dL???BUN - 14 mg/dL???Creatinine-Blood - 0.9 mg/dL???Estimated GFR Creatinine - 85 ML/MIN/1.73 M2???Calcium - 9.9 mg/dL BUN (02/09/2023) ???BUN - 14 mg/dL CBC (02/11/2023) ???WBC - 5.1 k/mm3???RBC - 3.80 m/mm3???Hgb - 11.6 Gm/dL???Hct - 35.2 %???MCV - 92.6 femtoliters???MCH - 30.5 pg???MCHC - 33.0 g/dL???Platelet Count - 174 k/mm3???RDW-SD - 41.5 femtoliters???MPV - 9.5 femtoliters???Nucleated RBC (Automated) - 0.0 #/100 WBC'S???Abs. NRBC - 0.0 k/mm3 CBC w/ Differential (02/08/2023) ???WBC - 7.8 k/mm3???RBC - 3.93 m/mm3???Hgb - 11.8 Gm/dL???Hct - 36.6 %???MCV - 93.1 femtoliters???MCH - 30.0 pg???MCHC - 32.2 g/dL???Platelet Count - 183 k/mm3???RDW-SD - 41.3 femtoliters???MPV - 9.9 femtoliters???Nucleated RBC (Automated) - 0.0 #/100 WBC'S???Abs. NRBC - 0.0 k/mm3???Abs. Neut - 6.4 k/mm3???Abs. Lymph - 0.8 k/mm3???Abs. [place] - 0.5 k/mm3???Abs. Eo - 0.0 k/mm3???Abs. Baso - 0.0 k/mm3???Neut % - 82.3 %???Lymph % - 10.7 %???Windsor % - 5.8 %???Eos % - 0.5 %???Baso % - 0.4 %???Imm Gran- 0.3 %???Abs. Imm Gran - 0.0 k/mm3 COVID-19 (Novel Coronavirus), Rapid PCR (02/08/2023) ???COVID-19 by RT-PCR - NEGATIVE Creatinine (02/09/2023) ???Creatinine-Blood - 0.8 mg/dL???Estimated GFR Creatinine - 87 ML/MIN/1.73 M2 Electrolytes (02/09/2023) ???Sodium - 136 mmol/L???Potassium - 4.0 mmol/L???Chloride - 101 mmol/L???Bicarbonate Level - 26 mmol/L???Anion Gap - 9 FREE T4 (02/08/2023) ???Free T4 - 0.99 ng/dL GLUCOSE POC (02/11/2023) ???Glucose, POC - 115 mg/dL High??Sensitivity??Troponin T (02/08/2023) ???High Sensitivity Troponin (HSTnT) - 26 ng/L Ionized Calcium (02/08/2023) ???Calcium, Ionized pH Corrected - 1.23 mmol/L LIPID PANEL (02/09/2023) ???Cholesterol - 119 mg/dL???Triglycerides - 55 mg/dL???HDL Cholesterol - 40 mg/dL???LDL Cholesterol - 68 mg/dL???Non HDL Cholesterol - 79 mg/dL Magnesium Level (02/08/2023) ???Magnesium - 1.2 mg/dL Mg Level (02/09/2023) ???Magnesium - 1.5 mg/dL PTT (02/08/2023) ???APTT - 26.0 seconds Troponin T, High Sensitivity (02/09/2023) ???High Sensitivity Troponin (HSTnT) - 23 ng/L TSH (02/08/2023) ???TSH - 1.84 uIU/mL Urinalysis w/hold for Urine Culture (02/09/2023) ???Appear/Color, Urine - LIGHT YELLOW???Specific Mccaulley, Urine - 1.021???pH, Urine - 6.0???Albumin, Urine - TRACE???Glucose, Urine - 4+???Ketones, Urine - NEGATIVE???Bilirubin, Urine - NEGATIVE???Hemoglobin, Urine - NEGATIVE???Nitrite, Urine - NEGATIVE???Leukocyte, Urine - NEGATIVE???Urobilinogen - NORMAL? ?WBC's, Urine - <1 /HPF? ?RBC's, Urine - 2 /HPF? ?Mucus - SLIGHT? ?Hold Urine Culture -Testing available 48 hours from time of collection. Allergies (NKA means No Known Allergies) NKA Problems Active Problems??(11) AICD (automatic cardioverter/defibrillator) present?? Atrial fibrillation?? CAD (coronary artery disease)?? Chest pain?? Diabetes mellitus?? Ex-smoker?? h/o ETOH abuse, past 3-4 beers daily, quit 3 months ago?? HTN (hypertension)?? Hyperlipidemia?? Hypertension?? Ischemic cardiomyopathy?? Education Materials Below is the list of Educational Leaflet Providered with your Discharge Instructions. Valuables and Belongings I fully understand and agree that [facility] accepts no responsibility for all my personal property including clothing, toilet articles, radios, jewelry, dentures, hearing aids, rings, money, or any other property that is in my possession or is brought to me after admission. I understand certain valuables may be placed in a hospital safe for a short period of time. I understand that the hospital is not liable for loss or damage due to accident, fire, or other natural occurrence while said property is in the safe. I accept full responsibility for any personal property that I keep with me, and will not hold the hospital responsible in case of loss or disappearance. I acknowledge that i have been encouraged to send valuables and belongings home. ?? Review of Valuable and Belonging List: With patient, With family Date for Pt to Sign Valuables/Belongings: 02/08/23 23:24:00 ?? Other Discharge Information ? Pulmonary Rehab Status?? Pulmonary Rehab Discharge Status?? Respiratory Rate: 17 br/min ? Common Emergency Awareness Tips IS IT A STROKE? Act FAST and Check for these signs: FACE Does the face look uneven? ARM Does one arm drift down? SPEECH Does their speech sound strange? TIME Call at any sign of stroke ?? Heart Attack Signs Chest discomfort: Most heart attacks involve discomfort in the center of the chest and lasts more than a few minutes, or goes away and comes back. It can feel like uncomfortable pressure, squeezing, fullness or pain. Discomfort in upper body: Symptoms can include pain or discomfort in one or both arms, back, neck, jaw or stomach. Shortness of breath: With or without discomfort. Other signs: Breaking out in a cold sweat, nausea, or lightheaded. Remember, MINUTES DO MATTER. If you experience any of these heart attack warning signs, call to get immediate medical attention! ?? Smoking can increase your chances of developing chronic health problems and can cause harmful effects to other family members in your house. If you smoke, you are strongly encouraged to quit. Please call [facility] [employer] [facility] at [phone] or [phone] ([phone]) or log in to [email or web address] for referrals to smoking cessation programs. ?? 299 Suicide & Crisis Lifeline is available 12/04 if you or someone you know needs to find a reason to keep living. By calling 330 you'll be connected to a skilled, trained counselor at a crisis center in your area. INPATIENT DISCHARGE INSTRUCTIONS SIGNATURE PAGE BECKHAM, SOREN Location:[facility] Registration Date and Time:02/08/2023 17:31 EDT Primary Care Physician: Yessenia Simmons MD, Attending Physician: Floyd Moreno MD, I SOREN BECKHAM, have received the above patient education materials/instructions and have verbalized understanding. If ambulance or transport services are being used I further acknowledge being given a choice of service. ?? If you need to contact me, please call me at this number: . Patient/Seasonal Clerk Name: Patient/Seasonal Clerk Signature: Relationship to Patient: Witness Name/Signature: Date: * Shiela Echavarria RN: PERFORM Event Display: Patient Education Leaflets Authored Date: [id number] Uncertain Causes of Chest Pain ?? [id number] Uncertain Causes of Chest Pain Chest pain can happen for a number of reasons. Sometimes the cause can't be determined. If your??condition does not seem serious, and your pain does not appear to be coming from your heart, your healthcare provider may recommend watching it closely. Sometimes the signs of a serious problem take more time to appear. Many problems not related to your heart can cause chest pain. These include: ??? Musculoskeletal. Costochondritis is an inflammation of the tissues around the ribs that can occur from trauma or overuse injuries, or a strain of the muscles of the chest wall. ??? Respiratory. Pneumonia, collapsed lung (pneumothorax), or inflammation of the lining of the chest and lungs (pleurisy). ??? Gastrointestinal. Esophageal reflux, heartburn, ulcers, or gallbladder disease. ??? Anxiety and panic disorders ??? Nerve compression and inflammation ??? Rare problems such as aortic aneurysm or aortic dissection (a swelling of the large artery coming out of the heart or a tear in the wall of the artery), or pulmonary embolism (a blood clot in the lungs). Home care After your visit, follow these recommendations: ??? Rest today and avoid strenuous activity. ??? Take any prescribed medicine as directed. ??? Be aware of any recurrent chest pain and notice any changes ?? Follow-up care Follow up with your healthcare provider if you don't start to feel better within 24 hours, or as advised. ?? Call 911 Call 911 if any of these occur: ??? A change in the type of pain: if it feels different, becomes more severe, lasts longer, or begins to spread into your shoulder, arm, neck, jaw or back ??? Shortness of breath or increased pain with breathing ??? Weakness, dizziness, or fainting ??? Rapid heartbeat ??? Crushing sensation in your chest ??? Coughing up more than a small amount of blood. ?? When to seek medical advice Call your healthcare provider right away if any of the following occur: ??? Cough with dark coloredsputum (phlegm) or small amount of blood ??? Fever of 100.4??F??(38??C) or higher, or as directed by your healthcare provider ??? Swelling, pain or redness in one leg ?? Last Reviewed Date: 2021 ?? [id number] [employer]. All rights reserved. This information is not intended as a substitute for professional medical care. Always follow your healthcare professional's instructions. ?? * Floyd Moreno MD: PERFORM, MODIFY Event Display: Discharge/Transfer Note Hospital Authored Date: [id number] Patient: ??SOREN BECKHAM ? Age:??82 Years?Sex:??Male?:??1940?? Patient Information Discharge Location: [facility] Primary Care Physician: Yessenia Simmons MD Admit Date/Time: 02/08/23 17:31 Discharge Disposition Discharge Disposition: ?? Discharge Diagnosis Atrial fibrillation (I48.91) Diabetes mellitus (E11.9) Hyperlipidemia (E78.5) Hypertension (I10) Chest pain, rule out acute myocardial infarction (R07.9) Coronary disease (I25.10) Ruled out for myocardial infarction (Z03.89) ?? _ Discharge Medications apixaban (Eliquis 5 mg oral tablet)?1?tab(s)?5?Milligram?By Mouth?2 times a day?TAKE 1 TABLET BY MOUTH TWICE A DAY Aspirin (Ascriptin Enteric)?81?Milligram?By Mouth?Daily Atorvastatin (atorvastatin 40 mg oral tablet)?1?tab(s)?40?Milligram?By Mouth?Daily Carvedilol (carvedilol 25 mg oral tablet)?25?Milligram?1?tablet?By Mouth?2 times a day GlipiZIDE (glipiZIDE 10 mg oral tablet)?1?tab(s)?10?Milligram?By Mouth?2 times a day Lisinopril (lisinopril 20 mg oral tablet)?20?Milligram?1?tablet?By Mouth?Daily Metformin (metFORMIN 500 mg oral tablet)?2?tab(s)?1,000?Milligram?By Mouth?2 times a day Nitroglycerin (Nitrostat 0.4 mg sublingual tablet)?1?tab(s)?0.4?Milligram?Sublingual?Every 5 minutes?as needed?Chest Pain?for 30?Days ? Future Appointments 2022 8:40 AM EDT ?? With: Troy GUNDERSON, [facility] Where: [facility] [address] [place] [address]- Status: Pending Objective Assessment and Plan Atrial fibrillation (I48.91):?82 year old with hx of T2DM on metformin, afib on anticoagulation,HLD, HTN, extensive history of coronary artery disease (history of grafts, CABG in 2008, most recent cath 2018), history of HFrEF (reported as 40 to 45% in cardiology note, no echo recorded in chart)who presents with chest pain??and was??admitted for ACS rule out. ?? Chest pain,??based on presentation and history atypical and noncardiac although patient has significant??history of coronary artery disease therefore an echocardiogram was completed Echo showed??evidence??of worsening EF??25% Discussed with Dr. He??recommended increasing??medical therapy, Coreg has been increased to 25mg twice daily patient is also on lisinopril 20 mg daily??cardiology is planning to do an outpatient??follow-up and a possible introducing Entresto Dr. Hendrickson will follow as an outpatient Only ACS has been ruled out patient??troponins were 26 and 22??no significant EKG changes Continue with Eliquis and home medications as before including statins ?HTN /HLD As mentioned above Continue ASA 81mg, Atorvastatin 40mg daily, lisinopril 20mg daily ? Diabetes mellitus (E11.9):?? Resume home medications ? Atrial fibrillation (I48.91): rate controlled. continue Eliquis.? Disposition, home outpatient follow-up with cardiology Dr. Hendrickson ? Addendum, spoke to cardiology they want to proceed with a stress test before discharge also wanted to??try Entresto, I have called the pharmacy and will cost the patient $120 a month, for now we willcontinue??with lisinopril due to the cost of Entresto If Stress test was negative patient will be discharged home today ?? Discharge Planning:? Vital Signs?? Temperature: 97.6 DegF (02/10/23 07:47:00) Temperature Route: Oral (02/10/23 07:47:00) Pulse Rate: 88 bpm (02/10/23 08:25:00) Respiratory Rate: 18 br/min (02/10/23 07:47:00) Systolic Blood Pressure: 120 mm Hg (02/10/23 08:25:00) Systolic Blood Pressure: 120 mm Hg (02/10/23 08:25:00) Diastolic Blood Pressure: 64 mm Hg (02/10/23 08:25:00) Diastolic Blood Pressure: 64 mm Hg (02/10/23 08:25:00) Blood pressure sites: Arm, left (02/10/23 07:47:00) Mean Arterial Pressure: 83 mm Hg (02/10/23 03:36:00) Pulse Pressure: 56 mm Hg (02/10/23 03:36:00) Oxygen Saturation: 98 % (02/10/23 07:47:00) Mode of Delivery (Oxygen): Room air (02/10/23 07:47:00) Early Warning Score: 2 (02/10/23 08:40:57) ? . Physical Exam General: [Alert, in no acute cardiopulmonary distress.] Mental Status: [Oriented to person, place and time. Normal affect.] Head: [Normocephalic.] Eyes: [Pupils are equal, round and reactive to light. Extraocular muscles intact.] Ear, Nose and Throat: [Oropharynx clear, mucous membranes moist. Ears and nose without masses, lesions or deformities. Tympanic membranes clear bilaterally. Trachea midline.] Neck: [Supple, Full range of motion.] Respiratory: [Clear to auscultation and percussion. No wheezing, rales or rhonchi.] Cardiovascular: [Heart sounds normal. No thrills. Regular rate and rhythm, no murmurs, rubs or gallops.] Gastrointestinal: [Abdomen soft, non-tender, non-distended. Normal bowel sounds. No pulsatile mass.No hepatosplenomegaly.] Genitourinary: [No costovertebral angle tenderness.] Neurologic: [Cranial nerves II-XII grossly intact. No focal neurological deficits. Deep tendon reflexes +2 bilaterally. Flexor plantar response. Moves all extremities spontaneously. Sensation intact bilaterally.] Skin: [No rashes or lesions. No petechiae or purpura. No edema.] Musculoskeletal: [No cyanosis or clubbing. No gross deformities. Normal range of motion.] Lymphatics: [Palpation of neck reveals no swelling or tenderness of neck nodes. Palpation of groin reveals no swelling or tenderness of groin nodes.] Psychiatric: [Not anxious fully cooperative following commands.] Pending Results Add On Lab Order ordered on 02/08/2023 Add On Lab Order ordered on 02/09/2023 CBC ordered on 02/09/2023 Follow-Up Appointments Added Follow Up ?Time Frame ?Comments Troy GUNDERSON, Yesseina?1 week Post Discharge Care Discharge ?02/10/23 8:49:00 EDT Home Health Face to Face ^HomeHealth[facility] Results Discharge Labs BLOOD COUNT & DIFF WBC 5.4 k/mm3 ()?? 02/10/2023 01:29 RBC 3.65 m/mm3 (Low)?? 02/10/2023 01:29 Hgb 11.0 Gm/dL (Low)?? 02/10/2023 01:29 Hct 33.8 % (Low)?? 02/10/2023 01:29 MCV 92.6 femtoliters ()?? 02/10/2023 01:29 MCH 30.1 pg ()?? 02/10/2023 01:29 MCHC 32.5 g/dL (Low)?? 02/10/2023 01:29 Platelet Count 169 k/mm3 ()?? 02/10/2023 01:29 RDW-SD 41.5 femtoliters ()?? 02/10/2023 01:29 MPV 9.9 femtoliters ()?? 02/10/2023 01:29 Nucleated RBC (Automated) 0.0 #/100 WBC'S ()?? 02/10/2023 01:29 Abs. NRBC 0.0 k/mm3 ()?? 02/10/2023 01:29 Abs. Neut 6.4 k/mm3 ()?? 02/08/2023 18:20 Abs. Lymph 0.8 k/mm3 ()?? 02/08/2023 18:20 Abs. Windsor 0.5 k/mm3 ()?? 02/08/2023 18:20 Abs. Eo 0.0 k/mm3 ()?? 02/08/2023 18:20 Abs. Baso 0.0 k/mm3 ()?? 02/08/2023 18:20 Neut % 82.3 % (High)?? 02/08/2023 18:20 Lymph % 10.7 % (Low)?? 02/08/2023 18:20 Windsor % 5.8 % ()?? 02/08/2023 18:20 Eos % 0.5 % ()?? 02/08/2023 18:20 Baso % 0.4 % ()?? 02/08/2023 18:20 Imm Gran 0.3 % ()?? 02/08/2023 18:20 Abs. Imm Gran 0.0 k/mm3 ()?? 02/08/2023 18:20 ?? CARDIAC High Sensitivity Troponin (HSTnT) 23 ng/L (High)?? 02/09/2023 00:49 ? CHEM GENERAL Sodium 136 mmol/L ()?? 02/09/2023 00:49 Potassium 4.0 mmol/L ()?? 02/09/2023 00:49 Chloride 101 mmol/L ()?? 02/09/2023 00:49 Bicarbonate Level 26 mmol/L ()?? 02/09/2023 00:49 Anion Gap 9 ()?? 02/09/2023 00:49 Glucose Level 360 mg/dL (High)?? 02/08/2023 18:20 Glucose, POC 103 mg/dL (High)?? 02/10/2023 08:37 BUN 14 mg/dL ()?? 02/09/2023 00:49 Creatinine-Blood 0.8 mg/dL ()?? 02/09/2023 00:49 Estimated GFR Creatinine 87 ML/MIN/1.73 M2 ()?? 02/09/2023 00:49 Calcium 9.9 mg/dL ()?? 02/08/2023 18:20 Calcium, Ionized pH Corrected 1.23 mmol/L ()?? 02/08/2023 18:20 Magnesium 1.5 mg/dL (Low)?? 02/09/2023 00:49 ? COAG APTT 26.0 seconds ()?? 02/08/2023 18:20 ? ENDOCRINE/TUMOR MARKER TSH 1.84 uIU/mL ()?? 02/08/2023 20:18 Free T4 0.99 ng/dL ()?? 02/08/2023 20:18 ?? LIPID STUDIES Cholesterol 119 mg/dL ()?? 02/09/2023 00:49 Triglycerides 55 mg/dL ()?? 02/09/2023 00:49 HDL Cholesterol 40 mg/dL ()?? 02/09/2023 00:49 LDL Cholesterol 68 mg/dL ()?? 02/09/2023 00:49 Non HDL Cholesterol 79 mg/dL ()?? 02/09/2023 00:49 ? UA/URINALYSIS Appear/Color, Urine LIGHT YELLOW ()?? 02/09/2023 05:40 Specific Mccaulley, Urine 1.021 ()?? 02/09/2023 05:40 pH, Urine 6.0 ()?? 02/09/2023 05:40 Albumin, Urine TRACE (Abnormal)?? 02/09/2023 05:40 Glucose, Urine 4+ (Abnormal)?? 02/09/2023 05:40 Ketones, Urine NEGATIVE ()?? 02/09/2023 05:40 Bilirubin, Urine NEGATIVE ()?? 02/09/2023 05:40 Hemoglobin, Urine NEGATIVE ()?? 02/09/2023 05:40 Nitrite, Urine NEGATIVE ()?? 02/09/2023 05:40 Leukocyte, Urine NEGATIVE ()?? 02/09/2023 05:40 Urobilinogen NORMAL mg/dL ()?? 02/09/2023 05:40 WBC's, Urine <1 /HPF ()?? 02/09/2023 05:40 RBC's, Urine 2 /HPF ()?? 02/09/2023 05:40 Mucus SLIGHT /LPF ()?? 02/09/2023 05:40 Hold Urine Culture Testing available 48 hours from time of collection. ()?? 02/09/2023 05:40 ? URINE OTHER Est Creatinine Clearance 61.84 mL/min ()?? 02/09/2023 02:51 ? VIROLOGY COVID-19 by RT-PCR NEGATIVE ()?? 02/08/2023 18:30 ? Microbiology ?? COVID-19 (Novel Coronavirus), Rapid PCR?? Completed?? Source: Nasal Body Site: Nose Collected Dt/Tm: 02/08/2023 18:22 Last Updated Dt/Tm: 02/08/2023 21:11 ? 25??minutes spent on discharge * Floyd Moreno MD: PERFORM Event Display: Discharge/Transfer Note Hospital Authored Date: Patient??was seen by cardiology recommended a stress test which will not be completed till tomorrow, this will serve as a progress note for 02/11/24, discharge held till tomorrow Laboratory * Peter , CECILE S: TRANSCRIBE Garret Kaiser MD S: VERIFY Event Display: Result: Authored Date: [id number] Chest 2 Views Frontal and Lat HX OF PRESENT ILLNESS: Pt has been lethargic dizzy weak for the past few days. Pt has extensive cardiac history; Reason: Other:; Chest Pain; Clinical Question(s): CHF / CHF COMPARISON: 11/01/2019 FINDINGS: LINES AND TUBES: Dual-lead right subclavian pacer wires are intact. LUNGS AND PLEURA: Clear lungs. Normal pulmonary vascularity. No pleural effusion. No pneumothorax. HEART, MEDIASTINUM AND JAIME: Heart is normal in size. Aorta is mildly calcified. BONES AND SOFT TISSUES: No acute abnormality. Status-post median sternotomy. IMPRESSION: No evidence of acute abnormality. WSN: [id number] Ordering Physician: Quang Manuel Dictated By: Garret Kaiser MD Dictated Date/Time: 02/08/23 7:15 pm Reviewed By: Garret Kaiser MD Signed By: Garret Kaiser MD Signed Date/Time: 02/08/23 7:15 pm Transcribed By: LEOPOLDO Transcribed Date/Time: 02/08/23 7:15 pm Patient Care team information Care Team Personnel Name: Barbi Rios RN Position: [facility] RN Member Role: Primary Care Nurse Name: Aster Ellison RN Position: [facility] RN Member Role: Primary Care Nurse Name: Yesy Hylton RN Position: [facility] RN Member Role: Primary Care Nurse Name: Yessenia Simmons MD Position: [facility] Physician - Primary Care Member Role: PCP Address: Address: [address] [place] [address] Adult [facility] Pediatric [facility] [address] Name: Kati Gordon RN Position: [facility] RN Member Role: Primary Care Nurse Name: *Chester MCDUFFIE Attending Position: [facility] ED Medicine MD Name: Uzma Steven RN Position: [facility] ED RN W/OE and Tasks Member Role: Patient Care Provider Name: Quang Manuel DO Position: [facility] Resident Member Role: Resident Address: Address: [address] [place] [address] Name: Rhiannon Easley Position: [facility] ED TA [facility] Member Role: Patient Care Provider Name: Susi Rodriguez Position: [facility] ED OA Charge Care Team Related Persons Name: MARK WELLINGTON Address: home [address] [place] [address] Name: FANY CASE Address: home [address] [place] [address]
--- OUTSIDE RECORDS SUMMARY | 2024-03-20 19:14 | XMS_ITS | Continuity of Care Document ---
Author Organization [facility] Address [address] [place] [address]- Care Team Providers Care Heel Shaper Name Role Phone Troy GUNDERSON, Yessenia Primary Care Physician Encounter [facility] Date(s): 02/12/23 - 03/14/23 [facility] [address] [place], [place] [address] Allergies, Adverse Reactions, Alerts No Known Allergies Immunizations Given and Recorded Vaccine Date Status Refusal Reason [id number] 12y+ bivalent booster vax 07/29/22 Given influenza [...] 11 Refills, Maintenance, 10/06/22 9:10:00 EST, Tablet, [facility], Partial fill upon patient request if the prescription is for a schedule II opioid drug., 166, cm, 10/06/22 8:31:00 E... Start Date: 10/06/22 Status: Ordered carvedilol 25 mg oral tablet 25 mg, 1, tablet, By Mouth, 2 times a day, # 180 tablet, Refills 0, Tot. Refills 0, Maintenance, 02/10/23 8:50:00 EDT, Route to Pharmacy Electronically, [facility] #[id number], Partial fill upon patient request if the prescription is for a schedule II opi... Start Date: 02/10/23 Status: Ordered Eliquis 5 mg oral tablet 1 tablet = 5 mg, By Mouth, 2 times a day, TAKE 1 TABLET BY MOUTH TWICE A DAY, # 180 tablet, 11 Refills, Maintenance, 06/21/22 21:34:00 EDT, Tablet, [id number], Partial fill upon patient request if the prescription is for a schedule II opioid... Start Date: 06/21/22 Status: Ordered glipiZIDE 10 mg oral tablet 1 tablet = 10 mg, By Mouth, 2 times a day, # 180 tablet, 11 Refills, Maintenance, 09/22/22 16:41:00EST, Tablet, [facility], Partial fill upon patient request if the prescription is for a schedule II opioid drug., 166, cm, 03/30/22... Start Date: 09/22/22 Status: Ordered lisinopril 20 mg oral tablet 20 mg, 1, tablet, By Mouth, Daily, # 30 tablet, Refills 2, Tot. Refills 2, Maintenance, 01/27/23 9:10:00 EDT, Route to Pharmacy Electronically, [id number], Partial fill upon patient request if the prescription is for a schedule II opioid drug.... Start Date: 01/27/23 Status: Ordered magnesium oxide 400 mg oral tablet 1 tablet = 400 mg, By Mouth, Daily, for 30 days, # 30 tablet, 0 Refills, Acute 03/17/23 11:33:00 EDT, 02/15/23 11:33:00 EDT, Tablet, [id number], Partial fill upon patient request if the prescription is for a schedule II opioid drug., 164.03, c... Start Date: 02/15/23 Stop Date: 03/17/23 Status: Ordered metFORMIN 500 mg oral tablet 2 tablet = 1,000 mg, By Mouth, 2 times a day, # 120 tablet, 11 Refills, Maintenance, 10/06/22 9:08:00 EST, Tablet, [facility], Partial fill upon patient request if the prescription is for a schedule II opioid drug., 166, cm, ... Start Date: 10/06/22 Status: Ordered Nitrostat 0.4 mg sublingual tablet 1 tablet = 0.4 mg, Sublingual, Every 5 minutes, PRN Chest Pain, # 100 tablet, 0 Refills, Maintenance, 11/03/19 16:02:00 EST, Tablet, [id number], 166, cm, 11/03/19 15:28:00 EST, [...] Care Nurse Name: Yessenia Simmons MD Position: [facility] Physician - Primary Care Member Role: PCP Address: Address: [address] [place] [address] Adult & Pediatric Medicine [place], [place] [address] Name: Kati Gordon RN Position: S RN Member Role: Primary Care Nurse Care Team Related Persons Name: MARK WELLINGTON Address: home [address] [place] [address] Name: FANY CASE Address: home [address] [place] [address]
--- OUTSIDE RECORDS SUMMARY | 2024-03-20 19:14 | XMS_ITS | Continuity of Care Document ---
Author Organization [facility] Address [address] [place] [address]- Care Team Providers Care Holistic Specialist Name Role Phone Troy GUNDERSON, Yessenia Primary Care Physician Encounter [facility] [place] Date(s): 08/23/23 - 09/22/23 [facility] [address] [place], [place] [address] Attending Physician: Teresita Mary Admitting Physician: AdmtrTeresita Referring Physician: AdmtrTeresita Allergies, Adverse Reactions, Alerts No Known Allergies Immunizations Given and Recorded Vaccine Date Status Refusal Reason influenza virus vaccine, inactivated 1 08/03/23 Gi ada influenza virus vaccine, inactivated 07/29/22 Give n influenza virus vaccine, inactivated 2 07/17/21 Gi ada tetanus-diphtheria toxoids (Td) 3 04/29/23 Given [id number] 12y+ bivalent booster vax 07/29/22 Given SARS-CoV-2 (COVID-19) mRNA-1273 vaccine 08/30/21 R ecorded SARS-CoV-2 (COVID-19) mRNA-1273 vaccine 01/04/21 R ecorded SARS-CoV-2 (COVID-19) mRNA-1273 vaccine 11/29/20 R ecorded zoster vaccine, inactivated 07/31/20 Recorded Pneumococcal Vaccine (oldterm) 11/29/07 Given 1Result Comment: [facility] 40696-855-65 2Result Comment: Patient tollerated well 3Result Comment: [facility] [address]-8 Medications Ascriptin Enteric 81 mg, By Mouth, Daily, Refills 0, Tot. Refills 0, 11/16/07 18:08:35 Start Date: 11/16/07 Status: Ordered atorvastatin 40 mg oral tablet 1 tablet = 40 mg, By Mouth, Daily, # 90 tablet, 11 Refills, Maintenance, 10/06/22 9:10:00 EST, Tablet, [facility], Partial fill upon patient request if the prescription is for a schedule II opioid drug., 166, cm, 10/06/22 8:31:00 E... Start Date: 10/06/22 Status: Ordered carvedilol 25 mg oral tablet 25 mg, 1, tablet, By Mouth, 2 times a day, # 180 tablet, Refills 0, Tot. Refills 0, Maintenance, 02/10/23 8:50:00 EDT, Route to Pharmacy Electronically, [facility]/pharmacy #[id number], Partial fill upon patient request if the prescription is for a schedule II opi... Start Date: 02/10/23 Status: Ordered glipiZIDE 10 mg oral tablet 1 tablet = 10 mg, By Mouth, 2 times a day, # 180 tablet, 11 Refills, Maintenance, 09/22/22 16:41:00EST, Tablet, [facility], Partial fill upon patient request if the prescription is for a schedule II opioid drug., 166, cm, 03/30/22... Start Date: 09/22/22 Status: Ordered lisinopril 10 mg oral tablet 10 mg, 1, tablet, By Mouth, Daily, # 90 tablet, Refills 1, Tot. Refills 1, Maintenance, 07/28/23 17:39:00 EST, Route to Pharmacy Electronically, [facility]/pharmacy #[id number], did not tolerate 20 mg dose;, 164.03, cm, 04/29/23 9:31:00 EDT, Height, 55.6, kg, 01/19... Start Date: 07/28/23 Stop Date: 01/24/24 Status: Ordered metFORMIN 500 mg oral tablet 2 tablet = 1,000 mg, By Mouth, 2 times a day, # 120 tablet, 11 Refills, Maintenance, 10/06/22 9:08:00 EST, Tablet, [facility], Partial fill upon patient request if the prescription is for a schedule II opioid drug., 166, cm, ... Start Date: 10/06/22 Status: Ordered Nitrostat 0.4 mg sublingual tablet 1 tablet = 0.4 mg, Sublingual, Every 5 minutes, PRN Chest Pain, # 100 tablet, 0 Refills, Maintenance, 11/03/19 16:02:00 EST, [facility]t, [id number], 166, cm, 11/03/19 15:28:00 EST, [...] Status Never smoker entered on: 02/12/16 Sex Laboratory * Event Display: Non Lab Results Authored Date: * Event Display: Non BH Lab Results Authored Date: * Event Display: Non BH Lab Results Authored Date: Cardiology * Event Display: Cardiology Office Note, Non- Authored Date: * Event Display: Cardiology Office Note, Non- Authored Date: Patient Care team information Care Team Personnel Name: Barbi Rios RN Position: [facility] RN Member Role: Primary Care Nurse [...] Primary Care Member Role: PCP Address: Address: [address] [place] [address] Adult & Pediatric Medicine [address] Name: Kati Gordon RN Position: S RN Member Role: Primary Care Nurse Care Team Related Persons Name: MARK WELLINGTON Address: home [address] [place] [address] Name: FANY CASE Address: home [address] [place] [address]
--- OUTSIDE RECORDS SUMMARY | 2024-03-20 19:14 | XMS_ITS | Continuity of Care Document ---
Author Organization [facility] Address [address] [place] [address]- Care Team Providers Care Senior Abap Developer Name Role Phone Yessenia Simmons MD Primary Care Physician [place] [facility] 05/02[place]23 - 06/01/23 [facility] [address] [place], [place] [address] Allergies, Adverse Reactions, Alerts No Known Allergies Immunizations Given and Recorded Vaccine Date Status Refusal Reason tetanus-diphtheria toxoids (Td) 1 04/29/23 Given [id number] 12y+ bivalent booster vax 07/29/22 Given influenza virus vaccine, inactivated 07/29/22 Give n influenza virus vaccine, inactivated 2 07/17/21 Gi ada SARS-CoV-2 (COVID-19) mRNA-1273 vaccine 08/30/21 R ecorded SARS-CoV-2 (COVID-19) mRNA-1273 vaccine 01/04/21 R ecorded SARS-CoV-2 (COVID-19) mRNA-1273 vaccine 11/29/20 R ecorded zoster vaccine, inactivated 07/31/20 Recorded Pneumococcal Vaccine (oldterm) 11/29/07 Given 1Result Comment: [facility] [id number] 2Result Comment: Patient tollerated well Medications Ascriptin Enteric 81 mg, By Mouth, Daily, Refills 0, Tot. Refills 0, 11/16/07 18:08:35 Start Date: 11/16/07 Status: Ordered atorvastatin 40 mg oral tablet 1 tablet = 40 mg, By Mouth, Daily, # 90 tablet, 11 Refills, Maintenance, 10/06/22 9:10:00 EST, Tablet, [facility], Partial fill upon patient request if the prescription is for a schedule II opioid drug., 166, cm, 10/06/22 8:31:00 E... Start Date: 10/06/22 Status: Ordered carvedilol 25 mg oral tablet 25 mg, 1, tablet, By Mouth, 2 times a day, # 180 tablet, Refills 0, Tot. Refills 0, Maintenance, 02/10/23 8:50:00 EDT, Route to Pharmacy Electronically, [facility]/pharmacy #[id number], Partial fill upon patient request if the prescription is for a schedule II opi... Start Date: 02/10/23 Status: Ordered Eliquis 5 mg oral tablet 1 tablet = 5 mg, By Mouth, 2 times a day, TAKE 1 TABLET BY MOUTH TWICE A DAY, # 180 tablet, 11 Refills, Maintenance, 06/21/22 21:34:00 EDT, Tablet, [facility] [id number] [facility], Partial fill upon patient request if the prescription is for a schedule II opioid... Start Date: 06/21/22 Status: Ordered glipiZIDE 10 mg oral tablet 1 tablet = 10 mg, By Mouth, 2 times a day, # 180 tablet, 11 Refills, Maintenance, 09/22/22 16:41:00EST, Tablet, [facility], Partial fill upon patient request if the prescription is for a schedule II opioid drug., 166, cm, 03/30/22... Start Date: 09/22/22 Status: Ordered lisinopril 10 mg oral tablet 10 mg, 1, tablet, By Mouth, Daily, # 90 tablet, Refills 0, Tot. Refills 0, Maintenance, 04/29/23 17:39:00 EDT, Route to Pharmacy Electronically, [facility]/pharmacy #[id number], did not tolerate 20 mg dose;, 164.03, cm, 04/29/23 9:31:00 EDT, Height, 55.6, kg, 01/19... Start Date: 04/29/23 Stop Date: 07/28/23 Status: Ordered metFORMIN 500 mg oral tablet 2 tablet = 1,000 mg, By Mouth, 2 times a day, # 120 tablet, 11 Refills, Maintenance, 10/06/22 9:08:00 EST, Tablet, [facility], Partial fill upon patient request if the prescription is for a schedule II opioid drug., 166, cm, ... Start Date: 10/06/22 Status: Ordered Nitrostat 0.4 mg sublingual tablet 1 tablet = 0.4 mg, Sublingual, Every 5 minutes, PRN Chest Pain, # 100 tablet, 0 Refills, Maintenance, 11/03/19 16:02:00 EST, [facility]t, [id number], 166, cm, 11/03/19 15:28:00 EST, [...] Care Nurse Name: Yessenia Simmons MD Position: [facility] Physician - Primary Care Member Role: PCP Address: Address: [address] [place] [address] Adult & [place] [address]- Name: Kati Gordon RN Position: S RN Member Role: Primary Care Nurse Care Team Related Persons Name: MARK WELLINGTON Address: home [address] [place] [address] Name: FANY CASE Address: home [address] [place] [address]
--- OUTSIDE RECORDS SUMMARY | 2024-03-20 19:14 | XMS_ITS | Continuity of Care Document ---
Author Organization [facility] Address [address] [place] [address]- Care Team Providers Care Shipping Manager Name Role Phone Troy GUNDERSON, Emily Primary Care Physician [phone] Encounter [facility] [id number] Date(s): 11/09/23 - 11/16/23 [facility] [address] [place], [place] [address] Attending Physician: Ria Bryant MD Allergies, Adverse Reactions, Alerts No Known Allergies Immunizations Given and Recorded Vaccine Date Status Refusal Reason influenza virus vaccine, inactivated 1 08/03/23 Gi ada influenza virus vaccine, inactivated 07/29/22 Give n influenza virus vaccine, inactivated 2 07/17/21 Gi ada tetanus-diphtheria toxoids (Td) 3 04/29/23 Given [id number] 12y+ bivalent booster vax 07/29/22 Given SARS-CoV-2 (COVID-19) mRNA-1273 vaccine 08/30/21 R ecorded SARS-CoV-2 (COVID-19) mRNA-1273 vaccine 01/04/21 R ecorded SARS-CoV-2 (COVID-19) mRNA-1273 vaccine 11/29/20 R ecorded zoster vaccine, inactivated 07/31/20 Recorded Pneumococcal Vaccine (oldterm) 11/29/07 Given 1Result Comment: [facility] 17167-628-09 2Result Comment: Patient tollerated well 3Result Comment: [facility] [id number] Medications Ascriptin Enteric 81 mg, By Mouth, Daily, Refills 0, Tot. Refills 0, 11/16/07 18:08:35 Start Date: 11/16/07 Status: Ordered atorvastatin 40 mg oral tablet 1 tablet = 40 mg, By Mouth, Daily, # 90 tablet, 11 Refills, Maintenance, 10/06/22 9:10:00 EST, Tablet, [facility], Partial fill upon patient request if the prescription is for a schedule II opioid drug., 166, cm, 10/06/22 8:31:00 E... Start Date: 10/06/22 Status: Ordered glipiZIDE 10 mg oral tablet 1 tablet = 10 mg, By Mouth, 2 times a day, # 180 tablet, 11 Refills, Maintenance, 09/22/22 16:41:00EST, Tablet, [facility], Partial fill upon patient request if the prescription is for a schedule II opioid drug., 166, cm, 03/30/22... Start Date: 09/22/22 Status: Ordered lisinopril 10 mg oral tablet 10 mg, 1, tablet, By Mouth, Daily, # 90 tablet, Refills 1, Tot. Refills 1, Maintenance, 07/28/23 17:39:00 EST, Route to Pharmacy Electronically, [facility]/pharmacy #[id number], did not tolerate 20 mg dose;, 164.03, cm, 04/29/23 9:31:00 EDT, Height, 55.6, kg, 05/2... Start Date: 07/28/23 Stop Date: 01/24/24 Status: Ordered magnesium oxide 400 [...] 11 Refills, Maintenance, 10/06/22 9:08:00 EST, Tablet, [facility], Partial fill upon patient request if the prescription is for a schedule II opioid drug., 166, cm, ... Start Date: 10/06/22 Status: Ordered Nitrostat 0.4 mg sublingual tablet 1 tablet = 0.4 mg, Sublingual, Every 5 minutes, PRN Chest Pain, # 100 tablet, 0 Refills, Maintenance, 11/03/19 16:02:00 EST, Tablet, [facility] [id number] [facility], 166, cm, 11/03/19 15:28:00 EST, Height, 65.3,kg, 11/01/19 22:48:00 EST, Dry Weight Start Date: 11/03/19 Stop Date: 12/03/19 Status: Ordered Problem List Condition Confirmation Course Effective Dates Status H ealth Status Informant Atrial fibrillation Confirmed Active Diabetes mellitus Confirmed Active Ischemic cardiomyopathy Confirmed Active Hyperlipidemia Confirmed Active Hypertension Confirmed Active Vital Signs Most recent to oldest [Reference Range]: 1 2 Height 164.03 cm (11/09/23 8:55 AM) 164.03 cm (11/09/23 8:49 AM) Weight 66.2 kg (11/09/23 8:49 AM) Oxygen Saturation [94-100 %] 100 % (11/09/23 8:49 AM) Pulse Rate [55-90 bpm] 83 bpm (11/09/23 8:49 AM) Body Mass Index [18.5-24.99 kg/m2] 24.6 kg/m2 (11/09/23 8:49 AM) Blood Pressure [90-138/55-84 mm Hg] 143/ 74mm Hg *H* (11/09/23 8:55 AM) 148/82mm Hg *H* (11/09/23 8:49 AM) Mode of Delivery (Oxygen) Room air (11/09/23 8:49 AM) Blood pressure sites Arm, right (11/09/23 8:55 AM) Arm, right (11/09/23 8:49 AM) Dry Weight 66.2 kg (11/09/23 8:49 AM) Weight Obtained Via Standing scale (11/09/23 8:49 AM) Dry Weight Obtained Via Standing scale (11/09/23 8:49 AM) Social History Social History Type Response Smoking Status Never smoker entered on: 02/12/16 Sex Note * Josee George: PERFORM, SIGN, VERIFY Event Display: Patient Education/Instruction Authored Date: [id number] [facility] *[facility] Clinical Summary Name SOREN BECKHAM Age 83 Years 1940 PCP Troy GUNDERSON, Yessenia PCP Visit Date 11/09/2023 08:38:00 Patient Instructions pls follow with urologist diabetes is not controlled at all - sugars in the 250-300 range.?? please consider adding 3rd medication to metformin and glipizide. let me know if you agree Additional Instructions: Scheduled Appointments?? Future Appointments ?No Future Appointments Scheduled Follow-Up Instructions ?? Diagnosis Medications: Please continue your medications until treatment is completed or stopped by your provider. Discuss any questions related to medications with your provider. Medications to Continue with No Changes These medications were not printed or sent to your pharmacy Aspirin (Ascriptin Enteric) 81 Milligram Oral Daily. Next Dose: Atorvastatin (atorvastatin 40 mg oral tablet) 1 tab(s) Oral Daily. Refills: 11. Next Dose: GlipiZIDE (glipiZIDE 10 mg oral tablet) 1 tab(s) Oral twice a day. Refills: 11. Next Dose: Lisinopril (lisinopril 10 mg oral tablet) 1 tab(s) Oral Daily for 90 Days. Refills: 1. Next Dose: Magnesium Oxide (magnesium oxide 400 mg oral tablet) twice a day for 90 Days. Next Dose: Metformin (metFORMIN 500 mg oral tablet) 2 tab(s) Oral twice a day. Refills: 11. Next Dose: Nitroglycerin (Nitrostat 0.4 mg sublingual tablet) 1 tab(s) Sublingual every 5 minutes as needed Chest Pain for 30 Days. Refills: 0. Next Dose: No Longer Take the Following Medications Carvedilol (carvedilol 25 mg oral tablet) 1 tab(s) Oral twice a day. Refills: 0. Pioglitazone (pioglitazone 30 mg oral tablet) 1 tab(s) Oral Daily. IN ADDITION TO METFORMIN AND GLIPIZIDE.. Refills: 1. Allergy Info:?? NKA Medications Given This Visit Future Orders ?No future orders Vital Signs Height 164.03 cm Weight 66.2 kg BMI 24.6 kg/m2 Blood Pressure 143 mm Hg/74 mm Hg Temperature Pulse Rate 83 bpm Respiratory Rate 02 Sat Mode of Delivery 100 %/Room air You can now view a summary of your hospital visit from the comfort of your home through a free online portal called [email or web address]. [email or web address] is a website that allows you to securely view your medical information including discharge summary, medications and follow-up visits. ??You can alsosend a secure electronic message to your doctor???s office to request appointments, renew medications or just ask a question. You can enroll at [email or web address] or register during your next office visit. [...] primary care provider, you may find a [facility] provider by calling [facility] at [phone]. [facility], in keeping with [facility] guidance, no longer requires face masks for staff, patientsor visitors in most situations. Similar to time spent indoors at other locations, there is the chance that you were exposed to respiratory viruses during your time with us (such as flu or COVID-19).? If you develop symptoms concerning for a viral respiratory infection, please seek testing (and treatment if indicated) from your medical provider or home test kit. For information about the plan of care [...] Care Nurse Name: Yessenia Simmons MD Position: [facility] Physician - Primary Care Member Role: PCP Address: Address: [address] [place] [address] Adult & Pediatric Medicine [place], [place] [address] Name: Kati Gorodn RN Position: S RN Member Role: Primary Care Nurse Care Team Related Persons Name: MARK WELLINGTON Address: home [address] [place] [address] Name: FANY CASE Address: home [address] [place] [address]
--- OUTSIDE RECORDS SUMMARY | 2024-03-20 19:14 | XMS_ITS | Continuity of Care Document ---
Author Organization [facility] Address [address] [place] [address]- Care Team Providers Care Computer Systems Support Specialist Name Role Phone Yessenia Simmons MD Primary Care Physician [place] [facility] [place]17[place] 07[place]21 [facility] [address] [place] [place] [address] Diagnosis Diabetes mellitus(Discharge Diagnosis) - 07/17/21 Ischemic cardiomyopathy(Discharge Diagnosis) - 07/17/21 Hypertension(Discharge Diagnosis) - 07/17/21 Atrial fibrillation(Discharge Diagnosis) - 07/17/21 Attending Physician: Yessenia Simmons MD Allergies, Adverse [...] Refills, Maintenance, 07/17/21 10:05:00 EDT, Tablet, [facility], Partial fill upon patient request if the prescription is for a schedule IIopioid drug., 166, cm, 07/17/21 9:36:00 EDT, Height... Start Date: 07/17/21 Status: Ordered carvedilol 12.5 mg oral tablet 12.5 mg, 1, tablet, By Mouth, 2 times a day, # 180 tablet, Refills 11, Tot. Refills 11, Maintenance, 07/17/21 10:05:00 EDT, Route to Pharmacy Electronically, [id number], Partial fill upon patient request if the prescription is for a schedule... Start Date: 07/17/21 Status: Ordered ciclopirox 0.77% topical cream 1 application, Topically, 2 times a day, # 30 Gm, 0 Refills, Maintenance, 01/21/21 9:18:00 EDT, Cream, [facility], Partial fill upon patient request [...] 21:34:00 EDT, 06/26/21 21:34:00 EDT, Tablet, [facility], Partial fill upon patient request if the prescript... Start Date: 06/26/21 Stop Date: 06/21/22 Status: Ordered Eliquis 5 mg oral tablet 1 tablet = 5 mg, By Mouth, 2 times a day, TAKE 1 TABLET BY MOUTH TWICE A DAY, # 180 tablet, 11 Refills, Maintenance, 06/21/22 21:34:00 EDT, [facility]t, [facility], Partial fill upon patient request if the prescription is for a schedule II opioid... Start Date: 06/21/22 Status: Ordered glipiZIDE 10 mg oral tablet 1 tablet = 10 mg, By Mouth, 2 times a day, for 90 days, # 180 tablet, 3 Refills, Hard Stop 06/21/2221:35:00 EDT, 06/26/21 21:35:00 EDT, [facility], [id number], Partial fill upon patient requestif the prescription is for a schedule II opioid shi... Start Date: 06/26/21 Stop Date: 06/21/22 Status: Ordered glipiZIDE 10 mg oral tablet 1 tablet = 10 mg, By Mouth, 2 times a day, # 180 tablet, 11 Refills, Maintenance, 06/21/22 21:35:00EDT, [facility]t, [facility], Partial fill upon patient request if the prescription is for a schedule II opioid drug., 166, cm, 04/11/21 8:31:00 ED... Start Date: 06/21/22 Status: Ordered lisinopril 10 mg oral tablet 10 mg, 1, tablet, By Mouth, Daily, # 90 tablet, Refills 6, Tot. Refills 6, Maintenance, 04/11/21 8:49:00 EDT, Route to Pharmacy Electronically, [facility], Partial fill upon patient request if the prescription is for a schedule II opioid drug... Start Date: 04/11/21 Status: Ordered metFORMIN 500 mg oral tablet 2 tablet = 1,000 mg, By Mouth, 2 times a day, # 120 tablet, 3 Refills, Maintenance, 11/11/20 15:58:00 EST, Tablet, [facility], Partial fill upon patient request if the prescription is for a schedule II opioid drug., 166, cm, 11/03/19 15:28:00... Start Date: 11/11/20 Status: Ordered Nitrostat 0.4 mg sublingual tablet 1 tablet = 0.4 mg, Sublingual, Every 5 minutes, PRN Chest Pain, # 100 tablet, 0 Refills, Maintenance, 11/03/19 16:02:00 EST, [facility]t, [facility], 166, cm, 11/03/19 15:28:00 EST, Height, 65.3,kg, 11/01/19 22:48:00 EST, Dry Weight Start Date: 11/03/19 Stop Date: 12/03/19 Status: Ordered Problem List Condition Effective Dates Status Health Status Inform ant Atrial fibrillation(Confirmed) Active Diabetes mellitus(Confirmed) Active Ischemic cardiomyopathy(Confirmed) Active Hyperlipidemia(Confirmed) Active Hypertension(Confirmed) Active Diabetic neuropathy(Confirmed) Active Diagnosis Diagnosis Type Effective Dates Health Status Clinical Service Informant Ischemic cardiomyopathy Discharge Diagnosis 07/17/21 Diabetes mellitus Discharge Diagnosis 07/17/21 Hypertension Discharge Diagnosis 07/17/21 Atrial fibrillation Discharge Diagnosis 07/17/21 Vital Signs Most recent to oldest [Reference Range]: 1 Height 166 cm (07/17/21 9:36 AM) Weight 63.7 kg (07/17/21 9:36 AM) Oxygen Saturation [94-100 %] 99 % (07/17/21 9:36 AM) Pulse Rate [55-90 bpm] 91 bpm *H* (07/17/21 9:36 AM) Body Mass Index [18.5-24.99] 23.12 (07/17/21 9:36 AM) Blood Pressure [90-138/55-84 mm Hg] 118/ 68mm Hg (07/17/21 9:36 AM) Temperature [96.8-100.4 DegF] 97.4 DegF (07/17/21 9:36 AM) Mode of Delivery (Oxygen) Room air (07/17/21 9:36 AM) Blood pressure sites Arm, left (07/17/21 9:36 AM) Temperature Route Temporal (07/17/21 9:36 AM) Social History Social History Type Response Smoking Status Never smoker entered on: 02/12/16 Sex
--- OUTSIDE RECORDS SUMMARY | 2024-03-20 19:14 | XMS_ITS | Continuity of Care Document ---
Author Organization [facility] Address [address] [place] [address]- Care Team Providers Care Spring Internship Name Role Phone Yessenia Simmons MD Primary Care Physician [phone] Encounter [facility] Date(s): 07/29/22 - 08/28/22 [facility] [address] [place], [place] [address] Attending Physician: Teresita Mary Admitting Physician: AdmTeresita garcia Referring Physician: AdmtrTeresita Allergies, Adverse Reactions, Alerts No Known Allergies Immunizations Given and Recorded Vaccine Date Status Refusal Reason [id number] 12y+ bivalent booster vax 07/29/22 Given influenza [...] Refills, Maintenance, 07/17/21 10:05:00 EDT, [id number], Partial fill upon patient request if the prescription is for a schedule IIopioid drug., 166, cm, 07/17/21 9:36:00 EDT, Height... Start Date: 07/17/21 Status: Ordered carvedilol 12.5 mg oral tablet 12.5 mg, 1, tablet, By Mouth, 2 times a day, # 180 tablet, Refills 11, Tot. Refills 11, Maintenance, 07/17/21 10:05:00 EDT, [facility] to [facility], [id number], Partial fill upon patient request if the prescription is for a schedule... Start Date: 07/17/21 Status: Ordered ciclopirox 0.77% topical cream 1 application, Topically, 2 times a day, # 30 Gm, 0 Refills, Maintenance, 01/21/21 9:18:00 EDT, Cream, [id number], Partial fill upon patient request [...] Refills, Maintenance, 06/21/22 21:34:00 EDT, Tablet, [id number], Partial fill upon patient request if the prescription is for a schedule II opioid... Start Date: 06/21/22 Status: Ordered glipiZIDE 10 mg oral tablet 1 tablet = 10 mg, By Mouth, 2 times a day, # 180 tablet, 11 Refills, Maintenance, 06/21/22 21:35:00EDT, [facility]t, [id number], Partial fill upon patient request if the prescription is for a schedule II opioid drug., 166, cm, 04/11/21 8:31:00 ED... Start Date: 06/21/22 Status: Ordered lisinopril 20 mg oral tablet 20 mg, 1, tablet, By Mouth, Daily, # 90 tablet, Refills 0, Tot. Refills 0, Maintenance, 03/30/22 12:50:00 EDT, Route to Pharmacy Electronically, [facility], Partial fill upon patient request if the prescription is for a schedule I... Start Date: 03/30/22 Status: Ordered metFORMIN 500 mg oral tablet 2 tablet = 1,000 mg, By Mouth, 2 times a day, # 120 tablet, 3 Refills, Maintenance, 11/11/20 15:58:00 EST, [facility]t, [id number], Partial fill upon patient request if the prescription is for a schedule II opioid drug., 166, cm, 11/03/19 15:28:00... Start Date: 11/11/20 Status: Ordered Nitrostat 0.4 mg sublingual tablet 1 tablet = 0.4 mg, Sublingual, Every 5 minutes, PRN Chest Pain, # 100 tablet, 0 Refills, Maintenance, 11/03/19 16:02:00 EST, [facility], [id number], 166, cm, 11/03/19 15:28:00 EST, Height, 65.3,kg, 11/01/19 22:48:00 EST, Dry Weight Start Date: 11/03/19 Stop Date: 12/03/19 Status: Ordered Problem List Condition Confirmation Course Effective Dates Status H ealth Status Informant Atrial fibrillation Confirmed Active Diabetes mellitus Confirmed Active Ischemic cardiomyopathy Confirmed Active Hyperlipidemia Confirmed Active Hypertension Confirmed Active Diabetic neuropathy Confirmed Active Social History Social History Type Response Smoking Status Never smoker entered on: 02/12/16 Sex Patient Care team information Care Team Personnel Name: Yessenia Simmons MD Position: [facility] Primary Care Physician Member Role: PCP Address: Address: [address] [place] [address] Adult [place] [address]- Care Team Related Persons Name: MARK WELLINGTON Address: home [address] [place] [address] Name: FANY CASE Address: home [address] [place] [address]
--- OUTSIDE RECORDS SUMMARY | 2024-03-20 19:14 | XMS_ITS | Continuity of Care Document ---
Author Organization [facility] Address [address] [place] [address]- Care Team Providers Care Stove Tender Name Role Phone Mayelinjeanette ARANGOYaritzaLisa Kin Primary Care Physician Encounter [facility] Date(s): 10/30/19 - 12/08/[address] [address]- [facility] Attending Physician: Jason Moncada MD Admitting Physician: Jason Moncada MD Referring Physician: Jason Moncada MD Allergies, Adverse Reactions, Alerts Substance Reaction Severity Status NKA Active Immunizations Given and Recorded Vaccine Date Status Refusal Reason Pneumococcal Vaccine (oldterm) 11/29/07 Given Medications amLODIPine 5 mg oral tablet 5 mg, 1, tablet, By Mouth, Daily, # 30 tablet, Refills 0, Tot. Refills 0, Maintenance, 11/03/19 16:01:00 EST, Route [id number], 166, cm, 11/03/19 15:28:00 EST, [...] Refills, Maintenance, 11/03/19 16:02:00 EST, [facility], [id number], 166, cm, 11/03/19 15:28:00 EST, Height, 65.3,kg, 11/01/19 22:48:00 EST, Dry Weight Start Date: 11/03/19 Stop Date: 12/03/19 Status: Ordered Problem List Condition Effective Dates Status Health Status Inform ant Diabetes mellitus(Confirmed) Active Ischemic cardiomyopathy(Confirmed) Active Hyperlipidemia(Confirmed) Active Social History Social History Type Response Smoking Status Never smoker entered on: 02/12/16 Sex
--- OUTSIDE RECORDS SUMMARY | 2024-03-20 19:14 | XMS_ITS | Continuity of Care Document ---
Author Organization [facility] Address [address] [place] [address]- Care Team Providers Care Tombstone Setter Name Role Phone Yessenia Simmons MD Primary Care Physician [phone] Encounter [facility] Date(s): 10/13/21 - 01/14/22 [facility] [address] [place] [address]- Attending Physician: David GUNDERSON, Ravinder Toussaint Admitting [...] Refills, Maintenance, 07/17/21 10:05:00 EDT, [facility], [id number], Partial fill upon patient request if the prescription is for a schedule IIopioid drug., 166, cm, 07/17/21 9:36:00 EDT, Height... Start Date: 07/17/21 Status: Ordered carvedilol 12.5 mg oral tablet 12.5 mg, 1, tablet, By Mouth, 2 times a day, # 180 tablet, Refills 11, Tot. Refills 11, Maintenance, 07/17/21 10:05:00 EDT, Route to Pharm[facility] Electron[facility], [id number], Partial fill upon patient request if the prescription is for a schedule... Start Date: 07/17/21 Status: Ordered ciclopirox 0.77% topical cream 1 application, Topically, 2 times a day, # 30 Gm, 0 Refills, Maintenance, 01/21/21 9:18:00 EDT, Cream, [id number], Partial fill upon patient request [...] 21:34:00 EDT, 06/26/21 21:34:00 EDT, [facility], [id number], Partial fill upon patient request if the prescript... Start Date: 06/26/21 Stop Date: 06/21/22 Status: Ordered Eliquis 5 mg oral tablet 1 tablet = 5 mg, By Mouth, 2 times a day, TAKE 1 TABLET BY MOUTH TWICE A DAY, # 180 tablet, 11 Refills, Maintenance, 06/21/22 21:34:00 EDT, [id number], Partial fill upon patient request if the prescription is for a schedule II opioid... Start Date: 06/21/22 Status: Ordered glipiZIDE 10 mg oral tablet 1 tablet = 10 mg, By Mouth, 2 times a day, for 90 days, # 180 tablet, 3 Refills, Hard Stop 06/21/2221:35:00 EDT, 06/26/21 21:35:00 EDT, [facility], [facility], Partial fill upon patient requestif the prescription is for a schedule II opioid shi... Start Date: 06/26/21 Stop Date: 06/21/22 Status: Ordered glipiZIDE 10 mg oral tablet 1 tablet = 10 mg, By Mouth, 2 times a day, # 180 tablet, 11 Refills, Maintenance, 06/21/22 21:35:00EDT, [facility], [id number], Partial fill upon patient request if the prescription is for a schedule II opioid drug., 166, cm, 04/11/21 8:31:00 ED... Start Date: 06/21/22 Status: Ordered lisinopril 10 mg oral tablet 10 mg, 1, tablet, By Mouth, Daily, # 90 tablet, Refills 6, Tot. Refills 6, Maintenance, 04/11/21 8:49:00 EDT, Route [facility] Electron[facility], [id number], Partial fill upon patient request if the prescription is for a schedule II opioid drug... Start Date: 04/11/21 Status: Ordered metFORMIN 500 mg oral tablet 2 tablet = 1,000 mg, By Mouth, 2 times a day, # 120 tablet, 3 Refills, Maintenance, 11/11/20 15:58:00 EST, [facility]t, [facility], Partial fill upon patient request if the prescription is for a schedule II opioid drug., 166, cm, 11/03/19 15:28:00... Start Date: 11/11/20 Status: Ordered Nitrostat 0.4 mg sublingual tablet 1 tablet = 0.4 mg, Sublingual, Every 5 minutes, PRN Chest Pain, # 100 tablet, 0 Refills, Maintenance, 11/03/19 16:02:00 EST, [id number], 166, cm, 11/03/19 15:28:00 EST, [...]
--- OUTSIDE RECORDS SUMMARY | 2024-03-20 19:14 | XMS_ITS | Continuity of Care Document ---
Author Organization [facility] Address [address] [place] [address]- Care Team Providers Care Slitting And Shipping Supervisor Name Role Phone Yessenia Simmons MD Primary Care Physician Encounter [facility] Date(s): 03/30/22 - 04/06/22 [facility] [address] [place], [place] [address] Encounter Diagnosis Atrial fibrillation(Discharge Diagnosis) - 03/30/22 Diabetes mellitus(Discharge Diagnosis) - 03/30/22 Hypertension(Discharge Diagnosis) - 03/30/22 Hyperlipidemia(Discharge Diagnosis) - 03/30/22 Attending Physician: Yessenia Simmons MD Allergies, Adverse [...] Refills, Maintenance, 07/17/21 10:05:00 EDT, [facility], [id number], Partial fill upon patient request if the prescription is for a schedule IIopioid drug., 166, cm, 07/17/21 9:36:00 EDT, Height... Start Date: 07/17/21 Status: Ordered carvedilol 12.5 mg oral tablet 12.5 mg, 1, tablet, By Mouth, 2 times a day, # 180 tablet, Refills 11, Tot. Refills 11, Maintenance, 07/17/21 10:05:00 EDT, Route [facility] Electron[facility], [id number], Partial fill upon patient request if the prescription is for a schedule... Start Date: 07/17/21 Status: Ordered ciclopirox 0.77% topical cream 1 application, Topically, 2 times a day, # 30 Gm, 0 Refills, Maintenance, 01/21/21 9:18:00 EDT, Cream, [id number], Partial fill upon patient request [...] Refills, Maintenance, 06/21/22 21:34:00 EDT, [facility], [id number], Partial fill upon patient request if the prescription is for a schedule II opioid... Start Date: 06/21/22 Status: Ordered glipiZIDE 10 mg oral tablet 1 tablet = 10 mg, By Mouth, 2 times a day, for 90 days, # 180 tablet, 3 Refills, Hard Stop 06/21/2221:35:00 EDT, 06/26/21 21:35:00 EDT, [facility], [id number], Partial fill upon patient requestif the prescription is for a schedule II opioid shi... Start Date: 06/26/21 Stop Date: 06/21/22 Status: Ordered glipiZIDE 10 mg oral tablet 1 tablet = 10 mg, By Mouth, 2 times a day, # 180 tablet, 11 Refills, Maintenance, 06/21/22 21:35:00EDT, [facility], [id number], Partial fill upon patient request if the prescription is for a schedule II opioid drug., 166, cm, 04/11/21 8:31:00 ED... Start Date: 06/21/22 Status: Ordered lisinopril 20 mg oral tablet 20 mg, 1, tablet, By Mouth, Daily, # 90 tablet, Refills 0, Tot. Refills 0, Maintenance, 03/30/22 12:50:00 EDT, Route to Pharmacy Electronically, [facility]-, Partial fill upon patient request if the prescription is for a schedule I... Start Date: 03/30/22 Status: Ordered metFORMIN 500 mg oral tablet 2 tablet = 1,000 mg, By Mouth, 2 times a day, # 120 tablet, 3 Refills, Maintenance, 11/11/20 15:58:00 EST, [id number], Partial fill upon patient request if the prescription is for a schedule II opioid drug., 166, cm, 11/03/19 15:28:00... Start Date: 11/11/20 Status: Ordered Nitrostat 0.4 mg sublingual tablet 1 tablet = 0.4 mg, Sublingual, Every 5 minutes, PRN Chest Pain, # 100 tablet, 0 Refills, Maintenance, 11/03/19 16:02:00 EST, [id number], 166, cm, 11/03/19 15:28:00 EST, Height, 65.3,kg, 11/01/19 22:48:00 EST, Dry Weight Start Date: 11/03/19 Stop Date: 12/03/19 Status: Ordered Problem List Condition Effective Dates Status Health Status Inform ant Atrial fibrillation(Confirmed) Active Diabetes mellitus(Confirmed) Active Ischemic cardiomyopathy(Confirmed) Active Hyperlipidemia(Confirmed) Active Hypertension(Confirmed) Active Diabetic neuropathy(Confirmed) Active Diagnosis Diagnosis Type Effective Dates Health Status Clinical Service Informant Atrial fibrillation Discharge Diagnosis 03/30/22 Diabetes mellitus Discharge Diagnosis 03/30/22 Hypertension Discharge Diagnosis 03/30/22 Hyperlipidemia Discharge Diagnosis 03/30/22 Vital Signs Most recent to oldest [Reference Range]: 1 Height 166 cm (03/30/22 12:33 PM) Weight 63.1 kg (03/30/22 12:33 PM) Oxygen Saturation [94-100 %] 99 % (03/30/22 12:33 PM) Pulse Rate [55-90 bpm] 62 bpm (03/30/22 12:33 PM) Body Mass Index [18.5-24.99] 22.9 (03/30/22 12:33 PM) Blood Pressure [90-138/55-84 mm Hg] 120/ 58mm Hg (03/30/22 12:33 PM) Mode of Delivery (Oxygen) Room air (03/30/22 12:33 PM) Blood pressure sites Arm, right (03/30/22 12:33 PM) Weight Obtained Via Standing scale (03/30/22 12:33 PM) Social History Social History Type Response Smoking Status Never smoker entered on: 02/12/16 Sex
--- OUTSIDE RECORDS SUMMARY | 2024-03-20 19:14 | XMS_ITS | Continuity of Care Document ---
Author Organization [facility] Address [address] [place] [address]- Care Team Providers Care Pneumatic Press Hand Name Role Phone Yessenia Simmons MD Primary Care Physician Encounter [facility] Date(s): 08/03/23 - 08/10/23 [facility] [address] [place] [address]- Encounter Diagnosis Atrial fibrillation(Discharge Diagnosis) - 08/03/23 Diabetes mellitus(Discharge Diagnosis) - 08/03/23 Ischemic cardiomyopathy(Discharge Diagnosis) - 08/03/23 Hyperlipidemia(Discharge Diagnosis) - 08/03/23 Hypertension(Discharge Diagnosis) - 08/03/23 Attending Physician: Ria Bryant MD Referring Physician: Yessenia Simmons MD Allergies, Adverse Reactions, Alerts No Known Allergies Immunizations Given and Recorded Vaccine Date Status Refusal Reason influenza virus vaccine, inactivated 1 08/03/23 Gi ada influenza virus vaccine, inactivated 07/29/22 Give n influenza virus vaccine, inactivated 2 07/17/21 Gi ada tetanus-diphtheria toxoids (Td) 3 04/29/23 Given [id number] 12y+ bivalent booster vax 07/29/22 Given SARS-CoV-2 (COVID-19) mRNA-1273 vaccine 08/30/21 R ecorded SARS-CoV-2 (COVID-19) mRNA-1273 vaccine 01/04/21 R ecorded SARS-CoV-2 (COVID-19) mRNA-1273 vaccine 11/29/20 R ecorded zoster vaccine, inactivated 07/31/20 Recorded Pneumococcal Vaccine (oldterm) 11/29/07 Given 1Result Comment: [facility] [id number] 2Result Comment: Patient tollerated well 3Result Comment: [facility] [id number] Medications Ascriptin Enteric 81 mg, By Mouth, Daily, Refills 0, Tot. Refills 0, 11/16/07 18:08:35 Start Date: 11/16/07 Status: Ordered atorvastatin 40 mg oral tablet 1 tablet = 40 mg, By Mouth, Daily, # 90 tablet, 11 Refills, Maintenance, 10/06/22 9:10:00 EST, Tablet, [facility], Partial fill upon patient request if the prescription is for a schedule II opioid drug., 166, cm, 10/06/22 8:31:00 E... Start Date: 10/06/22 Status: Ordered carvedilol 25 mg oral tablet 25 mg, 1, tablet, By Mouth, 2 times a day, # 180 tablet, Refills 0, Tot. Refills 0, Maintenance, 02/10/23 8:50:00 EDT, Route to Pharmacy Electronically, [facility] #[id number], Partial fill upon patient request if the prescription is for a schedule II opi... Start Date: 02/10/23 Status: Ordered glipiZIDE 10 mg oral tablet 1 tablet = 10 mg, By Mouth, 2 times a day, # 180 tablet, 11 Refills, Maintenance, 09/22/22 16:41:00EST, Tablet, [facility], Partial fill upon patient request if the prescription is for a schedule II opioid drug., 166, cm, 03/30/22... Start Date: 09/22/22 Status: Ordered lisinopril 10 mg oral tablet 10 mg, 1, tablet, By Mouth, Daily, # 90 tablet, Refills 1, Tot. Refills 1, Maintenance, 07/28/23 17:39:00 EST, Route to Pharmacy Electronically, [facility]/pharmacy #[id number], did not tolerate 20 mg dose;, 164.03, cm, 04/29/23 9:31:00 EDT, Height, 55.6, kg, 01/19... Start Date: 07/28/23 Stop Date: 01/24/24 Status: Ordered metFORMIN 500 mg oral tablet 2 tablet = 1,000 mg, By Mouth, 2 times a day, # 120 tablet, 11 Refills, Maintenance, 10/06/22 9:08:00 EST, Tablet, [facility], Partial fill upon patient request if the prescription is for a schedule II opioid drug., 166, cm, ... Start Date: 10/06/22 Status: Ordered Nitrostat 0.4 mg sublingual tablet 1 tablet = 0.4 mg, Sublingual, Every 5 minutes, PRN Chest Pain, # 100 tablet, 0 Refills, Maintenance, 11/03/19 16:02:00 EST, [id number], 166, cm, 11/03/19 15:28:00 EST, [...] Condition Confirmation Course Effective Dates Status H ealt Status Informant Atrial fibrillation Confirmed Active Diabetes mellitus Confirmed Active Ischemic cardiomyopathy Confirmed Active Hyperlipidemia Confirmed Active Hypertension Confirmed Active Diagnosis Diagnosis Type Effective Dates Health Status Clinical Service Informant Atrial fibrillation Discharge Diagnosis 08/03/23 Diabetes mellitus Discharge Diagnosis 08/03/23 Ischemic cardiomyopathy Discharge Diagnosis 08/03/23 Hyperlipidemia Discharge Diagnosis 08/03/23 Hypertension Discharge Diagnosis 08/03/23 Vital Signs Most recent to oldest [Reference Range]: 1 2 Height 164.03 cm (08/03/23 8:22 AM) 164.03 cm (08/03/23 8:18 AM) Weight 64 kg (08/03/23 8:18 AM) Oxygen Saturation [94-100 %] 99 % (08/03/23 8:18 AM) Pulse Rate [55-90 bpm] 78 bpm (08/03/23 8:18 AM) Body Mass Index [18.5-24.99 kg/m2] 23.79 kg/m2 (08/03/23 8:18 AM) Blood Pressure [90-138/55-84 mm Hg] 171/ 90mm Hg *H* (08/03/23 8:22 AM) 169/94mm Hg *H* (08/03/23 8:18 AM) Mode of Delivery (Oxygen) Room air (08/03/23 8:18 AM) Blood pressure sites Arm, left (08/03/23 8:22 AM) Arm, left (08/03/23 8:18 AM) Weight Obtained Via Standing scale (08/03/23 8:18 AM) Social History Social History Type Response Smoking Status Never smoker entered on: 02/12/16 Sex Note * Jenna Kenny: PERFORM, SIGN, VERIFY Event Display: Patient Education/Instruction Authored Date: [id number] [facility] Clinical Summary Name SOREN BECKHAM Age 82 Years 1940 PCP Troy GUNDRESON, Yessenia PCP Visit Date 08/03/2023 08:07:00 Patient Instructions add Pioglitazone 30 mg daily continue current medications?? check BP at home once a aweek??at different times of the day Additional Instructions: Scheduled Appointments?? Future Appointments ?No Future Appointments Scheduled Follow-Up Instructions ?? Diagnosis Essential (primary) hypertension; Hyperlipidemia, unspecified; Type 2 diabetes mellitus without complications; Ischemic cardiomyopathy; Unspecified atrial fibrillation Medications: Please continue your medications until treatment is completed or stopped by your provider. Discuss any questions related to medications with your provider. New Medications [id number], [address] [place], [place] [id number], [phone] Pioglitazone (pioglitazone 30 mg oral tablet) 1 tab(s) Oral Daily for 90 Days. in addition to metformin and glipizide. Refills: 0. Next Dose: Medications to Continue with No Changes These medications were not printed or sent to your pharmacy Aspirin (Ascriptin Enteric) 81 Milligram Oral Daily. Next Dose: Atorvastatin (atorvastatin 40 mg oral tablet) 1 tab(s) Oral Daily. Refills: 11. Next Dose: Carvedilol (carvedilol 25 mg oral tablet) 1 tab(s) Oral twice a day. Refills: 0. Next Dose: GlipiZIDE (glipiZIDE 10 mg oral tablet) 1 tab(s) Oral twice a day. Refills: 11. Next Dose: Lisinopril (lisinopril 10 mg oral tablet) 1 tab(s) Oral Daily for 90 Days. Refills: 1. Next Dose: Metformin (metFORMIN 500 mg oral tablet) 2 tab(s) Oral twice a day. Refills: 11. Next Dose: Nitroglycerin (Nitrostat 0.4 mg sublingual tablet) 1 tab(s) Sublingual every 5 minutes as needed Chest Pain for 30 Days. Refills: 0. Next Dose: No Longer Take the Following Medications apixaban (Eliquis 5 mg oral tablet) 1 tab(s) Oral twice a day. TAKE 1 TABLET BY MOUTH TWICE A DAY. Refills: 11. Allergy Info:?? NKA Medications Given This Visit Medication Dose Route influenza virus vaccine, inactivated (influenza virus, inactivated vacc (High Dose)) 0.7 mL Intramuscular Future Orders ?Lipid Panel? Order Date:08/03/23?- Complete on or after?08/03/23 ?AST? Order Date:08/03/23?- Complete on or after?08/03/23 ?Hemoglobin A1C (Monitoring)? Order Date:08/03/23?- Complete on or after?08/03/23 ?Renal Panel? Order Date:08/03/23?- Complete on or after?08/03/23 ?Glucose Level? Order Date:08/03/23?- Complete on or after?08/03/23 ?ALT? Order Date:08/03/23?- Complete on or after?08/03/23 Vital Signs Height 164.03 cm Weight 64 kg BMI 23.79 kg/m2 Blood Pressure 171 mm Hg/90 mm Hg Temperature Pulse Rate 78 bpm Respiratory Rate 02 Sat Mode of Delivery 99 %/Room air You can now view a summary of your hospital visit from the comfort of your home through a free online portal called [employer]. [employer] is a website that allows you to securely view your medical information including discharge summary, medications and follow-up visits. ??You can alsosend a secure electronic message to your doctor???s office to request appointments, renew medications or just ask a question. You can enroll at [email or web address] or register during your next office visit. [...] primary care provider, you may find a [facility] provider by calling [facility] [employer] at [phone]. [facility], in keeping with [facility] guidance, no longer requires face masks for [...] Care Nurse Name: Yesy Hylton RN [facility] RN Member Role: Primary Care Nurse Name: Yessenia Simmons MD Position[facility] Physician - Primary Care Member Role: PCP Address: Address: [address] [place] [address] Adult & Pediatric Medicine [place], [place] [address] Name: Kati Gordon RN Position: S RN Member Role: Primary Care Nurse Care Team Related Persons Name: MARK WELLINGTON Address: [address] [place] [address] Name: FANY CASE Address: home [address] [place] [address]
--- OUTSIDE RECORDS SUMMARY | 2024-03-20 19:14 | XMS_ITS | Continuity of Care Document ---
Author Organization [facility] Address [address] [place] [address]- Care Team Providers Care Magistrate Assistant Name Role Phone Ria Bryant MD Primary Care Physician [place] [facility] [place]/24 [facility] [address] [place], [place] [address] Allergies, Adverse Reactions, Alerts No Known Allergies Immunizations Given and Recorded Vaccine Date Status Refusal Reason influenza virus vaccine, inactivated 1 08/03/23 Gi ada influenza virus vaccine, inactivated 07/29/22 Give n influenza virus vaccine, inactivated 2 07/17/21 Gi ada tetanus-diphtheria toxoids (Td) 3 04/29/23 Given [id number] 12y+ bivalent booster vax 07/29/22 Given SARS-CoV-2 (COVID-19) mRNA-1273 vaccine 08/30/21 R ecorded SARS-CoV-2 (COVID-19) mRNA-1273 vaccine 01/04/21 R ecorded SARS-CoV-2 (COVID-19) mRNA-1273 vaccine 11/29/20 R ecorded zoster vaccine, inactivated 07/31/20 Recorded Pneumococcal Vaccine (oldterm) 11/29/07 Given 1Result Comment: [facility] [id number] 2Result Comment: Patient tollerated well 3Result Comment: [facility] [id number] Medications Ascriptin Enteric 81 mg, By Mouth, [...] Refills, Maintenance, 12/28/23 9:49:00 EDT, Tablet, [facility]/pharmacy #[id number], Partial fill upon patient request if the prescription is for a schedule II opioid drug., 164.03, cm, 11/09/23 8:55:00 ES... Start Date: 12/28/23 Status: Ordered lisinopril 10 mg oral tablet 10 mg, 1, tablet, By Mouth, Daily, # 90 tablet, Refills 1, Tot. Refills 1, Maintenance, 07/28/23 17:39:00 EST, Route to Pharmacy Electronically, [facility]/pharmacy #[id number], did not tolerate 20 mg [...] Refills, Maintenance, 12/29/23 16:20:00 EDT, Tablet, [facility]/pharmacy #[id number], Partial fill upon patient request if the prescription is for a schedule II opioid drug., 164.03, cm, 11/09/23 8:55:0... Start Date: 12/29/23 Status: Ordered Nitrostat 0.4 mg sublingual tablet 1 tablet = 0.4 mg, Sublingual, Every 5 minutes, PRN Chest Pain, # 100 tablet, 0 Refills, Maintenance, 11/03/19 16:02:00 EST, Tablet, [facility] [id number] [facility], 166, cm, 11/03/19 15:28:00 EST, [...] RN Member Role: Primary Care Nurse Name: Rai Bryant MD Position: [facility] Physician - Primary Care Member Role: PCP Address: Address: [address] [place] [address] Adult & Pediatric [place], [place] [address] Name: Lisha Cardenas Position: S RN Member Role: Primary Care Nurse Name: Aster Ellison RN Position: S RN Member Role: Primary Care Nurse Name: Yesy Hylton RN Position: S RN Member Role: Primary Care Nurse Name: Kati Gordon RN Position: S RN Member Role: Primary Care Nurse Care Team Related Persons Name: MARK WELLINGTON Address: home [address] [place] [address] Name: FANY CASE Address: home [address] [place] [address]
--- OUTSIDE RECORDS SUMMARY | 2024-03-20 19:14 | XMS_ITS | Continuity of Care Document ---
Author Organization [facility] Address [address] [place] [address]- Care Team Providers Care Supervisor Insecticide Name Role Phone Troy GUNDERSON, Yessenia Primary Care Physician [place] [facility] [place]/22 [facility] [address] [place], [place] [address] Attending Physician: Ever Baltazar MD Allergies, Adverse Reactions, Alerts No Known Allergies Immunizations Given and Recorded Vaccine Date Status Refusal Reason [id number] 12y+ bivalent booster vax 07/29/22 Given influenza [...] Refills, Maintenance, 07/17/21 10:05:00 EDT, Tablet, [facility], Partial fill upon patient request if the prescription is for a schedule IIopioid drug., 166, cm, 07/17/21 9:36:00 EDT, Height... Start Date: 07/17/21 Status: Ordered carvedilol 12.5 mg oral tablet 12.5 mg, 1, tablet, By Mouth, 2 times a day, # 180 tablet, Refills 11, Tot. Refills 11, Maintenance, 07/17/21 10:05:00 EDT, Route to Pharmacy Electronically, [facility], Partial fill upon patient request if the prescription is for a schedule... Start Date: 07/17/21 Status: Ordered ciclopirox 0.77% topical cream 1 application, Topically, 2 times a day, # 30 Gm, 0 Refills, Maintenance, 01/21/21 9:18:00 EDT, Cream, [facility], Partial fill upon patient request [...] Refills, Maintenance, 06/21/22 21:34:00 EDT, Tablet, [facility], Partial fill upon patient request if the prescription is for a schedule II opioid... Start Date: 06/21/22 Status: Ordered glipiZIDE 10 mg oral tablet 1 tablet = 10 mg, By Mouth, 2 times a day, # 180 tablet, 11 Refills, Maintenance, 06/21/22 21:35:00EDT, Tablet, [facility], Partial fill upon patient request if the prescription is for a schedule II opioid drug., 166, cm, 04/11/21 8:31:00 ED... Start Date: 06/21/22 Status: Ordered lisinopril 20 mg oral tablet 20 mg, 1, tablet, By Mouth, Daily, # 90 tablet, Refills 0, Tot. Refills 0, Maintenance, 03/30/22 12:50:00 EDT, Route to Pharmacy Electronically, [facility], Partial fill upon patient request if the prescription is for a schedule I... Start Date: 03/30/22 Status: Ordered metFORMIN 500 mg oral tablet 2 tablet = 1,000 mg, By Mouth, 2 times a day, # 120 tablet, 3 Refills, Maintenance, 11/11/20 15:58:00 EST, [facility]t, [facility], Partial fill upon patient request if the prescription is for a schedule II opioid drug., 166, cm, 11/03/19 15:28:00... Start Date: 11/11/20 Status: Ordered Nitrostat 0.4 mg sublingual tablet 1 tablet = 0.4 mg, Sublingual, Every 5 minutes, PRN Chest Pain, # 100 tablet, 0 Refills, Maintenance, 11/03/19 16:02:00 EST, Tablet, [facility], 166, cm, 11/03/19 15:28:00 EST, [...] Team Personnel Name: Yessenia Simmons MD Position: [facility] Primary Care Physician Member Role: PCP Address: Address: [address] [place] [address] Adult & [place] [address]- Care Team Related Persons Name: MARK WELLINGTON Address: [address] [place] [address] Name: FANY CASE Address: home [address] [place] [address]
--- OUTSIDE RECORDS SUMMARY | 2024-03-20 19:14 | XMS_ITS | Continuity of Care Document ---
Author Organization [facility] Address [address] [place] [address]- Care Team Providers Care Vice Investigator Name Role Phone Troy GUNDERSON, [facility] Primary Care Physician [phone] Encounter [facility] Date(s): 02/12/23 - 03/21/23 [facility] [address] [place], [place] [address] Attending Physician: Ever Baltazar MD Allergies, Adverse Reactions, Alerts No Known Allergies Immunizations Given and Recorded Vaccine Date Status Refusal Reason [id number] 12y+ bivalent booster vax 07/29/22 Given influenza [...] 11 Refills, Maintenance, 10/06/22 9:10:00 EST, Tablet, [facility], Partial fill upon patient request if the prescription is for a schedule II opioid drug., 166, cm, 10/06/22 8:31:00 E... Start Date: 10/06/22 Status: Ordered carvedilol 25 mg oral tablet 25 mg, 1, tablet, By Mouth, 2 times a day, # 180 tablet, Refills 0, Tot. Refills 0, Maintenance, 02/10/23 8:50:00 EDT, Route to Pharmacy Electronically, [facility]/pharmacy #[id number], Partial fill upon patient request if the prescription is for a schedule II opi... Start Date: 02/10/23 Status: Ordered Eliquis 5 mg oral tablet 1 tablet = 5 mg, By Mouth, 2 times a day, TAKE 1 TABLET BY MOUTH TWICE A DAY, # 180 tablet, 11 Refills, Maintenance, 06/21/22 21:34:00 EDT, Tablet, [facility] [address] [facility], Partial fill upon patient request if the prescription is for a schedule II opioid... Start Date: 06/21/22 Status: Ordered glipiZIDE 10 mg oral tablet 1 tablet = 10 mg, By Mouth, 2 times a day, # 180 tablet, 11 Refills, Maintenance, 09/22/22 16:41:00EST, Tablet, [facility], Partial fill upon patient request if the prescription is for a schedule II opioid drug., 166, cm, 03/30/22... Start Date: 09/22/22 Status: Ordered lisinopril 20 mg oral tablet 20 mg, 1, tablet, By Mouth, Daily, # 30 tablet, Refills 2, Tot. Refills 2, Maintenance, 01/27/23 9:10:00 EDT, Route to Pharmacy Electronically, [facility]/pharmacy #[id number], Partial fill upon patient request if the prescription is for a schedule II opioid drug.... Start Date: 01/27/23 Status: Ordered metFORMIN 500 mg oral tablet 2 tablet = 1,000 mg, By Mouth, 2 times a day, # 120 tablet, 11 Refills, Maintenance, 10/06/22 9:08:00 EST, Tablet, [facility], Partial fill upon patient request if the prescription is for a schedule II opioid drug., 166, cm, ... Start Date: 10/06/22 Status: Ordered Nitrostat 0.4 mg sublingual tablet 1 tablet = 0.4 mg, Sublingual, Every 5 minutes, PRN Chest Pain, # 100 tablet, 0 Refills, Maintenance, 11/03/19 16:02:00 EST, [facility], [facility], 166, cm, 11/03/19 15:28:00 EST, [...] Primary Care Member Role: PCP Address: Address: [address] [place] [address] Adult & Pediatric [place], [place] [address] Name: Kati Gordon RN Position: S RN Member Role: Primary Care Nurse Care Team Related Persons Name: MARK WELLINGTON Address: home [address] [place] [address] Name: FANY CASE Address: home [address] [place] [address]
--- OUTSIDE RECORDS SUMMARY | 2024-03-20 19:15 | XMS_ITS | Continuity of Care Document ---
Author Organization [facility] Address [address] [place] [address]- Care Team Providers Care Fleet Administrative Assistant Name Role Phone Yessenia Simmons MD Primary Care Physician [phone] [place] [facility] [place] - 04/18/21 [facility] [address] [place] [address]- Encounter Diagnosis Ischemic cardiomyopathy(Discharge Diagnosis) - 04/11/21 Permanent atrial fibrillation(Discharge Diagnosis) - 04/11/21 Diabetes mellitus(Discharge Diagnosis) - 04/11/21 Hypertension(Discharge Diagnosis) - 04/11/21 Nephropathy, diabetic(Discharge Diagnosis) - 04/11/21 Attending Physician: Yessenia Simmons MD Allergies, Adverse [...] Refills, Maintenance, 01/21/21 9:18:00 EDT, [facility], [facility], Partial fill upon patient request [...] Refills, Maintenance, 11/11/20 15:58:00 EST, [facility]t, [facility], Partial fill upon patient request if the prescription is for a schedule II opioid drug., 166, cm, 11/03/19 15:28:00 EST... Start Date: 11/11/20 Status: Ordered lisinopril 10 mg oral tablet 10 mg, 1, tablet, By Mouth, Daily, # 90 tablet, Refills 6, Tot. Refills 6, Maintenance, 04/11/21 8:49:00 EDT, Route to Pharmacy Electronically, [facility], Partial fill upon patient request if the prescription is for a schedule II opioid drug... Start Date: 04/11/21 Status: Ordered metFORMIN 500 mg oral tablet 2 tablet = 1,000 mg, By Mouth, 2 times a day, # 120 tablet, 3 Refills, Maintenance, 11/11/20 15:58:00 EST, [facility]t, [facility], Partial fill upon patient request if the prescription is for a schedule II opioid drug., 166, cm, 11/03/19 15:28:00... Start Date: 11/11/20 Status: Ordered Nitrostat 0.4 mg sublingual tablet 1 tablet = 0.4 mg, Sublingual, Every 5 minutes, PRN Chest Pain, # 100 tablet, 0 Refills, Maintenance, 11/03/19 16:02:00 EST, [facility], 166, cm, 11/03/19 15:28:00 EST, Height, 65.3,kg, 11/01/19 22:48:00 EST, Dry Weight Start Date: 11/03/19 Stop Date: 12/03/19 Status: Ordered Problem List Condition Effective Dates Status Health Status Inform ant Diabetes mellitus(Confirmed) Active Ischemic cardiomyopathy(Confirmed) Active Hyperlipidemia(Confirmed) Active Hypertension(Confirmed) Active Diabetic neuropathy(Confirmed) Active Diagnosis Diagnosis Type Effective Dates Health Status Clinical Service Informant Permanent atrial fibrillation Discharge Diagnosis 04/11/21 Ischemic cardiomyopathy Discharge Diagnosis 04/11/21 Diabetes mellitus Discharge Diagnosis 04/11/21 Hypertension Discharge Diagnosis 04/11/21 Nephropathy, diabetic Discharge Diagnosis 04/11/21 Vital Signs Most recent to oldest [Reference Range]: 1 Height 166 cm (04/11/21 8:31 AM) Weight 64.1 kg (04/11/21 8:31 AM) Oxygen Saturation [94-100 %] 99 % (04/11/21 8:31 AM) Pulse Rate [55-90 bpm] 61 bpm (04/11/21 8:31 AM) Body Mass Index [18.5-24.99] 23.26 (04/11/21 8:31 AM) Blood Pressure [90-138/55-84 mm Hg] 152/ 80mm Hg *H* (04/11/21 8:31 AM) Temperature [96.8-100.4 DegF] 97.8 DegF (04/11/21 8:31 AM) Mode of Delivery (Oxygen) Room air (04/11/21 8:31 AM) Blood pressure sites Arm, left (04/11/21 8:31 AM) Temperature Route Temporal (04/11/21 8:31 AM) Social History Social History Type Response Smoking Status Never smoker entered on: 02/12/16 Sex
--- OUTSIDE RECORDS SUMMARY | 2024-03-20 19:15 | XMS_ITS | Continuity of Care Document ---
Author Organization [facility] Address [address] [place] [address]- Care Team Providers Care Fundraising Consultant Name Role Phone Troy GUNDERSON, Emily Primary Care Physician [phone] Encounter [facility] Date(s): 06/23/21 - 07/23/21 [facility] [address] [place], [place] [address] Allergies, Adverse Reactions, Alerts Substance Reaction Severity [...] Refills, Maintenance, 07/17/21 10:05:00 EDT, [facility]t, [facility], Partial fill upon patient request if the prescription is for a schedule IIopioid drug., 166, cm, 07/17/21 9:36:00 EDT, Height... Start Date: 07/17/21 Status: Ordered carvedilol 12.5 mg oral tablet 12.5 mg, 1, tablet, By Mouth, 2 times a day, # 180 tablet, Refills 11, Tot. Refills 11, Maintenance, 07/17/21 10:05:00 EDT, Route to Pharm[facility] Electronically, [facility], Partial fill upon patient request if the prescription is for a schedule... Start Date: 07/17/21 Status: Ordered ciclopirox 0.77% topical cream 1 application, Topically, 2 times a day, # 30 Gm, 0 Refills, Maintenance, 01/21/21 9:18:00 EDT, Cream, [facility], Partial fill upon patient request [...] 21:34:00 EDT, 06/26/21 21:34:00 EDT, [facility]t, [facility], Partial fill upon patient request if the prescript... Start Date: 06/26/21 Stop Date: 06/21/22 Status: Ordered Eliquis 5 mg oral tablet 1 tablet = 5 mg, By Mouth, 2 times a day, TAKE 1 TABLET BY MOUTH TWICE A DAY, # 180 tablet, 11 Refills, Maintenance, 06/21/22 21:34:00 EDT, [facility]t, [facility], Partial fill upon patient request if the prescription is for a schedule II opioid... Start Date: 06/21/22 Status: Ordered glipiZIDE 10 mg oral tablet 1 tablet = 10 mg, By Mouth, 2 times a day, for 90 days, # 180 tablet, 3 Refills, Hard Stop 06/21/2221:35:00 EDT, 06/26/21 21:35:00 EDT, [facility]t, [facility], Partial fill upon patient requestif the prescription is for a schedule II opioid shi... Start Date: 06/26/21 Stop Date: 06/21/22 Status: Ordered glipiZIDE 10 mg oral tablet 1 tablet = 10 mg, By Mouth, 2 times a day, # 180 tablet, 11 Refills, Maintenance, 06/21/22 21:35:00EDT, [facility]t, [facility], Partial fill upon patient request if the prescription is for a schedule II opioid drug., 166, cm, 04/11/21 8:31:00 ED... Start Date: 06/21/22 Status: Ordered lisinopril 10 mg oral tablet 10 mg, 1, tablet, By Mouth, Daily, # 90 tablet, Refills 6, Tot. Refills 6, Maintenance, 04/11/21 8:49:00 EDT, Route to Pharmacy Electronically, [facility], Partial fill upon patient request if the prescription is for a schedule II opioid drug... Start Date: 04/11/21 Status: Ordered metFORMIN 500 mg oral tablet 2 tablet = 1,000 mg, By Mouth, 2 times a day, # 120 tablet, 3 Refills, Maintenance, 11/11/20 15:58:00 EST, [facility]t, [facility], Partial fill upon patient request if the prescription is for a schedule II opioid drug., 166, cm, 11/03/19 15:28:00... Start Date: 11/11/20 Status: Ordered Nitrostat 0.4 mg sublingual tablet 1 tablet = 0.4 mg, Sublingual, Every 5 minutes, PRN Chest Pain, # 100 tablet, 0 Refills, Maintenance, 11/03/19 16:02:00 EST, [facility], [facility], 166, cm, 11/03/19 15:28:00 EST, [...]
--- OUTSIDE RECORDS SUMMARY | 2024-03-20 19:15 | XMS_ITS | Continuity of Care Document ---
Author Organization [facility] Address [address] [place] [address]- Care Team Providers Care Structural Steel Worker Name Role Phone Ria Bryant MD Primary Care Physician Encounter [facility] [place] [facility] [place] [id number] Date(s): 01/04/24 - 02/03/24 [facility] [address] [place], [place] [address] Allergies, Adverse Reactions, Alerts No Known Allergies Immunizations Given and Recorded Vaccine Date Status Refusal Reason influenza virus vaccine, inactivated 1 08/03/23 Gi ada influenza virus vaccine, inactivated 07/29/22 Give n influenza virus vaccine, inactivated 2 07/17/21 Gi ada tetanus-diphtheria toxoids (Td) 3 04/29/23 Given [id number] 12y+ bivalent booster vax 07/29/22 Given SARS-CoV-2 (COVID-19) mRNA-1273 vaccine 08/30/21 R ecorded SARS-CoV-2 (COVID-19) mRNA-1273 vaccine 01/04/21 R ecorded SARS-CoV-2 (COVID-19) mRNA-1273 vaccine 11/29/20 R ecorded zoster vaccine, inactivated 07/31/20 Recorded Pneumococcal Vaccine (oldterm) 11/29/07 Given 1Result Comment: [facility] [id number] 2Result Comment: Patient tollerated well 3Result Comment: [facility] [id number] Medications Ascriptin Enteric 81 mg, By Mouth, [...] 0 Refills, Maintenance, 12/28/23 9:49:00 EDT, Tablet, [facility]/pharmacy #[id number], Partial fill upon patient request if the prescription is for a schedule II opioid drug., 164.03, cm, 11/09/23 8:55:00 ES... Start Date: 12/28/23 Status: Ordered lisinopril 10 mg oral tablet 1, tablet, By Mouth, Daily, # 90 tablet, Refills 1, Tot. Refills 1, Maintenance, 01/24/24 18:46:00 EDT, Route to Pharmacy Electronically, [facility]/pharmacy #[id number], 164.03, cm, 11/09/23 8:55:00 EST, Height,66.2, [...] 1 Refills, Maintenance, 12/29/23 16:20:00 EDT, Tablet, [facility]/pharmacy #[id number], Partial fill upon patient request if the prescription is for a schedule II opioid drug., 164.03, cm, 11/09/23 8:55:0... Start Date: 12/29/23 Status: Ordered Nitrostat 0.4 mg sublingual tablet 1 tablet = 0.4 mg, Sublingual, Every 5 minutes, PRN Chest Pain, # 100 tablet, 0 Refills, Maintenance, 11/03/19 16:02:00 EST, Tablet, [facility] [id number] [facility], 166, cm, 11/03/19 15:28:00 EST, [...] Care Nurse Name: Ria Bryant MD Position: [facility] Physician - Primary Care Member Role: PCP Address: Address: [address] [place] [address] Adult & Pediatric [place], [place] [address] Name: Lisha Cardenas Position: S RN Member Role: Primary Care Nurse Name: Aster Ellison RN Position: S RN Member Role: Primary Care Nurse Name: Yesy Hylton RN Position: S RN Member Role: Primary Care Nurse Name: Kati Gordon RN Position: S RN Member Role: Primary Care Nurse Care Team Related Persons Name: MARK WELLINGTON Address: [address] [place] [address] Name: FANY CASE Address: home [address] [place] [address]
--- OUTSIDE RECORDS SUMMARY | 2024-03-20 19:15 | XMS_ITS | Continuity of Care Document ---
Author Organization [facility] Address [address] [place] [address]- Care Team Providers Care Janitorial Cleaner Name Role Phone Troy GUNDERSON, Yessenia Primary Care Physician [place] [facility] [place](s): 04/29/23 - 05/06/23 [facility] [address], [place] [address] Attending Physician: Ria Bryant MD Referring Physician: Yessenia Simmons MD Allergies, Adverse Reactions, Alerts No Known Allergies Immunizations Given and Recorded Vaccine Date Status Refusal Reason tetanus-diphtheria toxoids (Td) 1 04/29/23 Given [id number] 12y+ bivalent booster vax 07/29/22 Given influenza virus vaccine, inactivated 07/29/22 Give n influenza virus vaccine, inactivated 2 07/17/21 Gi ada SARS-CoV-2 (COVID-19) mRNA-1273 vaccine 08/30/21 R ecorded SARS-CoV-2 (COVID-19) mRNA-1273 vaccine 01/04/21 R ecorded SARS-CoV-2 (COVID-19) mRNA-1273 vaccine 11/29/20 R ecorded zoster vaccine, inactivated 07/31/20 Recorded Pneumococcal Vaccine (oldterm) 11/29/07 Given 1Result Comment: [facility] [address]-1 2Result Comment: Patient tollerated well Medications Ascriptin Enteric 81 mg, By Mouth, Daily, Refills 0, Tot. Refills 0, 11/16/07 18:08:35 Start Date: 11/16/07 Status: Ordered atorvastatin 40 mg oral tablet 1 tablet = 40 mg, By Mouth, Daily, # 90 tablet, 11 Refills, Maintenance, 10/06/22 9:10:00 EST, Tablet, [facility], Partial fill upon patient request if the prescription is for a schedule II opioid drug., 166, cm, 10/06/22 8:31:00 E... Start Date: 10/06/22 Status: Ordered carvedilol 25 mg oral tablet 25 mg, 1, tablet, By Mouth, 2 times a day, # 180 tablet, Refills 0, Tot. Refills 0, Maintenance, 02/10/23 8:50:00 EDT, Route to Pharmacy Electronically, [facility]/pharmacy #[id number], Partial fill upon patient request if the prescription is for a schedule II opi... Start Date: 02/10/23 Status: Ordered Eliquis 5 mg oral tablet 1 tablet = 5 mg, By Mouth, 2 times a day, TAKE 1 TABLET BY MOUTH TWICE A DAY, # 180 tablet, 11 Refills, Maintenance, 06/21/22 21:34:00 EDT, Tablet, [facility] [id number] [facility], Partial fill upon patient request if the prescription is for a schedule II opioid... Start Date: 06/21/22 Status: Ordered glipiZIDE 10 mg oral tablet 1 tablet = 10 mg, By Mouth, 2 times a day, # 180 tablet, 11 Refills, Maintenance, 09/22/22 16:41:00EST, Tablet, [facility], Partial fill upon patient request if the prescription is for a schedule II opioid drug., 166, cm, 03/30/22... Start Date: 09/22/22 Status: Ordered lisinopril 10 mg oral tablet 10 mg, 1, tablet, By Mouth, Daily, # 90 tablet, Refills 0, Tot. Refills 0, Maintenance, 04/29/23 17:39:00 EDT, Route to Pharmacy Electronically, [facility]/pharmacy #[id number], did not tolerate 20 mg dose;, 164.03, cm, 04/29/23 9:31:00 EDT, Height, 55.6, kg, 01/19... Start Date: 04/29/23 Stop Date: 07/28/23 Status: Ordered metFORMIN 500 mg oral tablet 2 tablet = 1,000 mg, By Mouth, 2 times a day, # 120 tablet, 11 Refills, Maintenance, 10/06/22 9:08:00 EST, Tablet, [facility], Partial fill upon patient request if the prescription is for a schedule II opioid drug., 166, cm, ... Start Date: 10/06/22 Status: Ordered Nitrostat 0.4 mg sublingual tablet 1 tablet = 0.4 mg, Sublingual, Every 5 minutes, PRN Chest Pain, # 100 tablet, 0 Refills, Maintenance, 11/03/19 16:02:00 EST, [facility]t, [facility], 166, cm, 11/03/19 15:28:00 EST, [...] oldest [Reference Range]: 1 2 3 Height 164.03 cm (04/29/23 9:31 AM) 164.03 cm (04/29/23 8:38 AM) 164.03 cm (04/29/23 8:33 AM) Weight 62.1 kg (04/29/23 8:33 AM) Oxygen Saturation [94-100 %] 98 % (04/29/23 8:33 AM) Pulse Rate [55-90 bpm] 64 bpm (04/29/23 8:33 AM) Body Mass Index [18.5-24.99 kg/m2] 23.08 kg/m2 (04/29/23 8:33 AM) Blood Pressure [90-138/55-84 mm Hg] 128/60mm Hg (04/29/23 9:31 AM) 158/78mm Hg *H* (04/29/23 8:38 AM) 159/85mm Hg *H* (04/29/23 8:33 AM) Mode of Delivery (Oxygen) Room air (04/29/23 8:33 AM) Blood pressure sites Arm, left (04/29/23 9:31 AM) Arm, left (04/29/23 8:38 AM) Arm, left (04/29/23 8:33 AM) Weight Obtained Via Standing scale (04/29/23 8:33 AM) Social History Social History Type Response Smoking Status Never smoker entered on: 02/12/16 Sex Patient Care team information Care Team Personnel Name: Barbi Rios RN Position: [facility] RN Member Role: Primary Care Nurse Name: Shantal Garcia Position: S RN Member Role: Primary Care Nurse Name: Lisha Cardenas Position: [facility] RN Member Role: Primary Care Nurse Name: Aster Ellison RN Position: S RN Member Role: Primary Care Nurse Name: Yesy Hylton RN Position: [facility] RN Member Role: Primary Care Nurse Name: Yessenia Simmons MD Position: [facility] Physician - Primary Care Member Role: PCP Address: Address: [address] [place] [address] Adult & Pediatric Medicine [place], [place] [address] Name: Kati Gordon RN Position: [facility] RN Member Role: Primary Care Nurse Care Team Related Persons Name: MARK WELLINGTON Address: [address] [place] [address] Name: FANY CASE Address: home [address] [place] [address]
--- OUTSIDE RECORDS SUMMARY | 2024-03-20 19:15 | XMS_ITS | Continuity of Care Document ---
Author Organization [facility] Address [address] [place] [address]- Care Team Providers Care Mop Machine Operator Name Role Phone Yessenia Simmons MD Primary Care Physician Encounter [facility] Date(s): 10/06/22 - 10/13/22 [facility] [address] [place], [place] [address] Encounter Diagnosis Diabetes mellitus(Discharge Diagnosis) - 10/06/22 Atrial fibrillation(Discharge Diagnosis) - 10/06/22 Hypertension(Discharge Diagnosis) - 10/06/22 Hyperlipidemia(Discharge Diagnosis) - 10/06/22 Diabetic nephropathy associated with type 2 diabetes mellitus(Discharge Diagnosis) - 10/06/22 Attending Physician: Yessenia Simmons MD Allergies, Adverse Reactions, Alerts No Known Allergies Immunizations Given and Recorded Vaccine Date Status Refusal Reason [id number] 12y+ bivalent booster vax 07/29/22 Given influenza [...] 11 Refills, Maintenance, 10/06/22 9:10:00 EST, Tablet, [facility], Partial fill upon patient request if the prescription is for a schedule II opioid drug., 166, cm, 10/06/22 8:31:00 E... Start Date: 10/06/22 Status: Ordered carvedilol 12.5 mg oral tablet 12.5 mg, 1, tablet, By Mouth, 2 times a day, # 180 tablet, Refills 11, Tot. Refills 11, Maintenance, 09/23/22 8:45:00 EST, Route to Pharmacy Electronically, [facility], Partial fill upon patient request if the prescription is for a... Start Date: 09/23/22 Status: Ordered ciclopirox 0.77% topical cream 1 application, Topically, 2 times a day, # 30 Gm, 0 Refills, Maintenance, 01/21/21 9:18:00 EDT, Cream, [id number], Partial fill upon patient request [...] Refills, Maintenance, 06/21/22 21:34:00 EDT, [facility]t, [facility], Partial fill upon patient request if the prescription is for a schedule II opioid... Start Date: 06/21/22 Status: Ordered glipiZIDE 10 mg oral tablet 1 tablet = 10 mg, By Mouth, 2 times a day, # 180 tablet, 11 Refills, Maintenance, 09/22/22 16:41:00EST, Tablet, [facility], Partial fill upon patient request if the prescription is for a schedule II opioid drug., 166, cm, 03/30/22... Start Date: 09/22/22 Status: Ordered lisinopril 10 mg oral tablet 10 mg, 1, tablet, By Mouth, Daily, # 90 tablet, Refills 11, Tot. Refills 11, Maintenance, 10/06/22 9:12:00 EST, Route to Pharmacy Electronically, [facility], Partial fill upon patient request if the prescription is for a schedule I... Start Date: 10/06/22 Status: Ordered metFORMIN 500 mg oral tablet 2 tablet = 1,000 mg, By Mouth, 2 times a day, # 120 tablet, 11 Refills, Maintenance, 10/06/22 9:08:00 EST, Tablet, [facility], Partial fill upon patient request if the prescription is for a schedule II opioid drug., 166, cm, ... Start Date: 10/06/22 Status: Ordered Nitrostat 0.4 mg sublingual tablet 1 tablet = 0.4 mg, Sublingual, Every 5 minutes, PRN Chest Pain, # 100 tablet, 0 Refills, Maintenance, 11/03/19 16:02:00 EST, [facility]t, [id number], 166, cm, 11/03/19 15:28:00 EST, [...] Clinical Service Informant Diabetes mellitus Discharge Diagnosis 10/06/22 Atrial fibrillation Discharge Diagnosis 10/06/22 Hypertension Discharge Diagnosis 10/06/22 Hyperlipidemia Discharge Diagnosis 10/06/22 Diabetic nephropathy associated with type 2 diabetes mellitus Discharge Diagnosis 10/06/22 Vital Signs Most recent to oldest [Reference Range]: 1 Height 166 cm (10/06/22 8:31 AM) Weight 63.8 kg (10/06/22 8:31 AM) Oxygen Saturation [94-100 %] 99 % (10/06/22 8:31 AM) Pulse Rate [55-90 bpm] 90 bpm (10/06/22 8:31 AM) Body Mass Index [18.5-24.99 kg/m2] 23.15 kg/m2 (10/06/22 8:31 AM) Blood Pressure [90-138/55-84 mm Hg] 138/ 82mm Hg (10/06/22 8:31 AM) Mode of Delivery (Oxygen) Room air (10/06/22 8:31 AM) Blood pressure sites Arm, left (10/06/22 8:31 AM) Social History Social History Type Response Smoking Status Never smoker entered on: 02/12/16 Sex Note * Vale Dodd: PERFORM, SIGN, VERIFY Event Display: Patient Education/Instruction Authored Date: [id number] [facility] *[facility] Adult [facility] Clinical Summary Name SOREN BECKHAM Age 82 Years 1940 PCP Troy GUNDERSON, Yessenia PCP Visit Date 10/06/2022 08:19:00 Additional Instructions: Scheduled Appointments?? Future Appointments ?No Future Appointments Scheduled Follow-Up Instructions ?? Diagnosis Medications: Please continue your medications until treatment is completed or stopped by your provider. Discuss any questions related to medications with your provider. Medications to Continue Taking That Have Changed [facility], [address] [place] [address] [phone], [phone] - Lisinopril (lisinopril 10 mg oral tablet) 1 tab(s) Oral Daily. Refills: 11. Next Dose: Medications to Continue with No Changes [facility], [address] [place] [address] [phone], [phone] Atorvastatin (atorvastatin 40 mg oral tablet) 1 tab(s) Oral Daily. Refills: 11. Next Dose: GlipiZIDE (glipiZIDE 10 mg oral tablet) 1 tab(s) Oral twice a day. Refills: 11. Next Dose: Metformin (metFORMIN 500 mg oral tablet) 2 tab(s) Oral twice a day. Refills: 11. Next Dose: These medications were not printed or sent to your pharmacy apixaban (Eliquis 5 mg oral tablet) 1 tab(s) Oral twice a day. TAKE 1 TABLET BY MOUTH TWICE A DAY. Refills: 11. Next Dose: Aspirin (Ascriptin Enteric) 81 Milligram Oral Daily. Next Dose: Carvedilol (carvedilol 12.5 mg oral tablet) 1 tab(s) Oral twice a day. Refills: 11. Next Dose: Ciclopirox Topical (ciclopirox 0.77% topical cream) 1 asif Topically twice a day. Refills: 0. Next Dose: Nitroglycerin (Nitrostat 0.4 mg sublingual tablet) 1 tab(s) Sublingual every 5 minutes as needed Chest Pain for 30 Days. Refills: 0. Next Dose: Allergy Info:?? NKA Medications Given This Visit Future Orders ?Hemoglobin A1C (Monitoring)? Order Date:10/06/22?- Complete within?3 months ?Microalbumin Urine? Order Date:10/06/22?- Complete within?3 months ?Comprehensive Metabolic Panel? Order Date:10/06/22?- Complete within?3 months ?Lipid Panel? Order Date:10/06/22?- Complete within?3 months Vital Signs Height 166 cm Weight 63.8 kg BMI 23.15 kg/m2 Blood Pressure 138 mm Hg/82 mm Hg Temperature Pulse Rate 90 bpm Respiratory Rate 02 Sat Mode of Delivery 99 %/Room air You can now view a summary of your hospital visit from the comfort of your home through a free online portal called [employer]. [employer] is a website that allows you to securely view your medical information including discharge summary, medications and follow-up visits. ??You can alsosend a secure electronic message to your doctor???s office to request appointments, renew medications or just ask a question. You can enroll at [email or web address] or register during your next office [...] primary care provider, you may find a [facility] provider by calling [facility] [employer] at [phone]. For information about the plan of care [...] Team Personnel Name: Yessenia Simmons MD Position: [facility] Primary Care Physician Member Role: PCP Address: Address: [address] [place] [address] Adult [place] [address]- Care Team Related Persons Name: MARK WELLINGTON Address: home [address] [place] [address] Name: FANY CASE Address: home [address] [place] [address]
--- OUTSIDE RECORDS SUMMARY | 2024-03-20 19:15 | XMS_ITS | Continuity of Care Document ---
Author Organization [facility] Address [address] [place] [address]- Care Team Providers Care Assistant Front End Manager Name Role Phone Troy GUNDERSON, Yessenia Primary Care Physician Encounter [facility] Date(s): 07/22/21 - 08/21/21 [facility] [address] [place] [address] [place] Allergies, Adverse Reactions, Alerts Substance Reaction Severity [...] Refills, Maintenance, 07/17/21 10:05:00 EDT, [facility]t, [id number], Partial fill upon patient request if the prescription is for a schedule IIopioid drug., 166, cm, 07/17/21 9:36:00 EDT, Height... Start Date: 07/17/21 Status: Ordered carvedilol 12.5 mg oral tablet 12.5 mg, 1, tablet, By Mouth, 2 times a day, # 180 tablet, Refills 11, Tot. Refills 11, Maintenance, 07/17/21 10:05:00 EDT, Route to Pharmacy Electronically, [id number], Partial fill upon patient request if the prescription is for a schedule... Start Date: 07/17/21 Status: Ordered ciclopirox 0.77% topical cream 1 application, Topically, 2 times a day, # 30 Gm, 0 Refills, Maintenance, 01/21/21 9:18:00 EDT, Cream, [id number], Partial fill upon patient request [...] 21:34:00 EDT, 06/26/21 21:34:00 EDT, [facility]t, [facility], Partial fill upon patient request if the prescript... Start Date: 06/26/21 Stop Date: 06/21/22 Status: Ordered Eliquis 5 mg oral tablet 1 tablet = 5 mg, By Mouth, 2 times a day, TAKE 1 TABLET BY MOUTH TWICE A DAY, # 180 tablet, 11 Refills, Maintenance, 06/21/22 21:34:00 EDT, [facility], [id number], Partial fill upon patient request if the prescription is for a schedule II opioid... Start Date: 06/21/22 Status: Ordered glipiZIDE 10 mg oral tablet 1 tablet = 10 mg, By Mouth, 2 times a day, for 90 days, # 180 tablet, 3 Refills, Hard Stop 06/21/2221:35:00 EDT, 06/26/21 21:35:00 EDT, [facility], [facility], Partial fill upon patient requestif the prescription is for a schedule II opioid shi... Start Date: 06/26/21 Stop Date: 06/21/22 Status: Ordered glipiZIDE 10 mg oral tablet 1 tablet = 10 mg, By Mouth, 2 times a day, # 180 tablet, 11 Refills, Maintenance, 06/21/22 21:35:00EDT, [facility]t, [facility], Partial fill upon patient request if the prescription is for a schedule II opioid drug., 166, cm, 04/11/21 8:31:00 ED... Start Date: 06/21/22 Status: Ordered lisinopril 10 mg oral tablet 10 mg, 1, tablet, By Mouth, Daily, # 90 tablet, Refills 6, Tot. Refills 6, Maintenance, 04/11/21 8:49:00 EDT, Route to Pharmacy Electronically, [facility], Partial fill upon patient request if the prescription is for a schedule II opioid drug... Start Date: 04/11/21 Status: Ordered metFORMIN 500 mg oral tablet 2 tablet = 1,000 mg, By Mouth, 2 times a day, # 120 tablet, 3 Refills, Maintenance, 11/11/20 15:58:00 EST, [facility]t, [facility], Partial fill upon patient request if the prescription is for a schedule II opioid drug., 166, cm, 11/03/19 15:28:00... Start Date: 11/11/20 Status: Ordered Nitrostat 0.4 mg sublingual tablet 1 tablet = 0.4 mg, Sublingual, Every 5 minutes, PRN Chest Pain, # 100 tablet, 0 Refills, Maintenance, 11/03/19 16:02:00 EST, [facility], [id number], 166, cm, 11/03/19 15:28:00 EST, [...]
--- OUTSIDE RECORDS SUMMARY | 2024-03-20 19:15 | XMS_ITS | Continuity of Care Document ---
Author Organization [facility] Address [address] [place] [address]- Care Team Providers Care Group Tester Name Role Phone Yessenia Simmons MD Primary Care Physician [place] [facility] Date(s): 10/03/21 - 11/02/21 [facility] [address] [place] [address]- [place] Allergies, Adverse Reactions, Alerts No Known Allergies [...] Refills, Maintenance, 07/17/21 10:05:00 EDT, [facility], [facility], Partial fill upon patient request if the prescription is for a schedule IIopioid drug., 166, cm, 07/17/21 9:36:00 EDT, Height... Start Date: 07/17/21 Status: Ordered carvedilol 12.5 mg oral tablet 12.5 mg, 1, tablet, By Mouth, 2 times a day, # 180 tablet, Refills 11, Tot. Refills 11, Maintenance, 07/17/21 10:05:00 EDT, Route to Pharm[facility] Electronically, [id number], Partial fill upon patient request if the prescription is for a schedule... Start Date: 07/17/21 Status: Ordered ciclopirox 0.77% topical cream 1 application, Topically, 2 times a day, # 30 Gm, 0 Refills, Maintenance, 01/21/21 9:18:00 EDT, Cream, [facility], Partial fill upon patient request [...] 21:34:00 EDT, 06/26/21 21:34:00 EDT, [facility]t, [facility], Partial fill upon patient request if the prescript... Start Date: 06/26/21 Stop Date: 06/21/22 Status: Ordered Eliquis 5 mg oral tablet 1 tablet = 5 mg, By Mouth, 2 times a day, TAKE 1 TABLET BY MOUTH TWICE A DAY, # 180 tablet, 11 Refills, Maintenance, 06/21/22 21:34:00 EDT, [facility], [facility], Partial fill upon patient request if the prescription is for a schedule II opioid... Start Date: 06/21/22 Status: Ordered glipiZIDE 10 mg oral tablet 1 tablet = 10 mg, By Mouth, 2 times a day, for 90 days, # 180 tablet, 3 Refills, Hard Stop 06/21/2221:35:00 EDT, 06/26/21 21:35:00 EDT, [facility], [id number], Partial fill upon patient requestif the prescription is for a schedule II opioid shi... Start Date: 06/26/21 Stop Date: 06/21/22 Status: Ordered glipiZIDE 10 mg oral tablet 1 tablet = 10 mg, By Mouth, 2 times a day, # 180 tablet, 11 Refills, Maintenance, 06/21/22 21:35:00EDT, [facility], [facility], Partial fill upon patient request if the prescription is for a schedule II opioid drug., 166, cm, 04/11/21 8:31:00 ED... Start Date: 06/21/22 Status: Ordered lisinopril 10 mg oral tablet 10 mg, 1, tablet, By Mouth, Daily, # 90 tablet, Refills 6, Tot. Refills 6, Maintenance, 04/11/21 8:49:00 EDT, Route to Pharm[facility] Electronically, [facility], Partial fill upon patient request if the prescription is for a schedule II opioid drug... Start Date: 04/11/21 Status: Ordered metFORMIN 500 mg oral tablet 2 tablet = 1,000 mg, By Mouth, 2 times a day, # 120 tablet, 3 Refills, Maintenance, 11/11/20 15:58:00 EST, [facility]t, [facility], Partial fill upon patient request if the prescription is for a schedule II opioid drug., 166, cm, 11/03/19 15:28:00... Start Date: 11/11/20 Status: Ordered Nitrostat 0.4 mg sublingual tablet 1 tablet = 0.4 mg, Sublingual, Every 5 minutes, PRN Chest Pain, # 100 tablet, 0 Refills, Maintenance, 11/03/19 16:02:00 EST, [facility], [id number], 166, cm, 11/03/19 15:28:00 EST, [...]
--- OUTSIDE RECORDS SUMMARY | 2024-03-20 19:15 | XMS_ITS | Continuity of Care Document ---
Author Organization [facility] Address [address] [place] [address]- Care Team Providers Care Pie Baker Name Role Phone Troy GUNDERSON, Yessenia Primary Care Physician Encounter [facility] Date(s): 08/08/23 - 09/07/23 [facility] [address] [place], [place] [address] Allergies, Adverse Reactions, Alerts No Known Allergies Immunizations Given and Recorded Vaccine Date Status Refusal Reason influenza virus vaccine, inactivated 1 08/03/23 Gi ada influenza virus vaccine, inactivated 07/29/22 Give n influenza virus vaccine, inactivated 2 07/17/21 Gi ada tetanus-diphtheria toxoids (Td) 3 04/29/23 Given [id number] 12y+ bivalent booster vax 07/29/22 Given SARS-CoV-2 (COVID-19) mRNA-1273 vaccine 08/30/21 R ecorded SARS-CoV-2 (COVID-19) mRNA-1273 vaccine 01/04/21 R ecorded SARS-CoV-2 (COVID-19) mRNA-1273 vaccine 11/29/20 R ecorded zoster vaccine, inactivated 07/31/20 Recorded Pneumococcal Vaccine (oldterm) 11/29/07 Given 1Result Comment: [facility] 05706-847-47 2Result Comment: Patient tollerated well 3Result Comment: [facility] [address]-0 Medications Ascriptin Enteric 81 mg, By Mouth, Daily, Refills 0, Tot. Refills 0, 11/16/07 18:08:35 Start Date: 11/16/07 Status: Ordered atorvastatin 40 mg oral tablet 1 tablet = 40 mg, By Mouth, Daily, # 90 tablet, 11 Refills, Maintenance, 10/06/22 9:10:00 EST, Tablet, [facility], Partial fill upon patient request if the prescription is for a schedule II opioid drug., 166, cm, 10/06/22 8:31:00 E... Start Date: 10/06/22 Status: Ordered carvedilol 25 mg oral tablet 25 mg, 1, tablet, By Mouth, 2 times a day, # 180 tablet, Refills 0, Tot. Refills 0, Maintenance, 02/10/23 8:50:00 EDT, Route to Pharmacy Electronically, [facility]/pharmacy #[id number], Partial fill upon patient request if the prescription is for a schedule II opi... Start Date: 02/10/23 Status: Ordered glipiZIDE 10 mg oral tablet 1 tablet = 10 mg, By Mouth, 2 times a day, # 180 tablet, 11 Refills, Maintenance, 09/22/22 16:41:00EST, Tablet, [facility], Partial fill upon patient request if the prescription is for a schedule II opioid drug., 166, cm, 03/30/22... Start Date: 09/22/22 Status: Ordered lisinopril 10 mg oral tablet 10 mg, 1, tablet, By Mouth, Daily, # 90 tablet, Refills 1, Tot. Refills 1, Maintenance, 07/28/23 17:39:00 EST, Route to Pharmacy Electronically, [facility]/pharmacy #[id number], did not tolerate 20 mg dose;, 164.03, cm, 04/29/23 9:31:00 EDT, Height, 55.6, kg, 2... Start Date: 07/28/23 Stop Date: 01/24/24 Status: Ordered metFORMIN 500 mg oral tablet 2 tablet = 1,000 mg, By Mouth, 2 times a day, # 120 tablet, 11 Refills, Maintenance, 10/06/22 9:08:00 EST, Tablet, [facility], Partial fill upon patient request if the prescription is for a schedule II opioid drug., 166, cm, ... Start Date: 10/06/22 Status: Ordered Nitrostat 0.4 mg sublingual tablet 1 tablet = 0.4 mg, Sublingual, Every 5 minutes, PRN Chest Pain, # 100 tablet, 0 Refills, Maintenance, 11/03/19 16:02:00 EST, [id number], 166, cm, 11/03/19 15:28:00 EST, [...] Primary Care Member Role: PCP Address: Address: [address] [place] [address] Adult & Pediatric Medicine [place], [place] [address] Name: Kati Gordon RN Position: S RN Member Role: Primary Care Nurse Care Team Related Persons Name: MARK WELLINGTON Address: home [address] [place] [address] Name: FANY CASE Address: home [address] [place] [address]
--- OUTSIDE RECORDS SUMMARY | 2024-03-20 19:15 | XMS_ITS | Continuity of Care Document ---
Author Organization [facility] Address [address] [place] [address]- Care Team Providers Care Physical Science Teacher Name Role Phone Troy GUNDERSON, Yessenia Primary Care Physician [phone] Encounter [facility] Date(s): 08/17/23 - 09/16/23 [facility] [address] [place], [place] [address] Allergies, Adverse Reactions, Alerts No Known Allergies Immunizations Given and Recorded Vaccine Date Status Refusal Reason influenza virus vaccine, inactivated 1 08/03/23 Gi ada influenza virus vaccine, inactivated 07/29/22 Give n influenza virus vaccine, inactivated 2 07/17/21 Gi ada tetanus-diphtheria toxoids (Td) 3 04/29/23 Given [id number] 12y+ bivalent booster vax 07/29/22 Given SARS-CoV-2 (COVID-19) mRNA-1273 vaccine 08/30/21 R ecorded SARS-CoV-2 (COVID-19) mRNA-1273 vaccine 01/04/21 R ecorded SARS-CoV-2 (COVID-19) mRNA-1273 vaccine 11/29/20 R ecorded zoster vaccine, inactivated 07/31/20 Recorded Pneumococcal Vaccine (oldterm) 11/29/07 Given 1Result Comment: [facility] 28812-683-87 2Result Comment: Patient tollerated well 3Result Comment: [facility] [id number] Medications Ascriptin Enteric 81 mg, By Mouth, Daily, Refills 0, Tot. Refills 0, 11/16/07 18:08:35 Start Date: 11/16/07 Status: Ordered atorvastatin 40 mg oral tablet 1 tablet = 40 mg, By Mouth, Daily, # 90 tablet, 11 Refills, Maintenance, 10/06/22 9:10:00 EST, Tablet, [facility], Partial fill upon patient request if the prescription is for a schedule II opioid drug., 166, cm, 10/06/22 8:31:00 E... Start Date: 10/06/22 Status: Ordered carvedilol 25 mg oral tablet 25 mg, 1, tablet, By Mouth, 2 times a day, # 180 tablet, Refills 0, Tot. Refills 0, Maintenance, 02/10/23 8:50:00 EDT, Route to Pharmacy Electronically, [facility]/pharmacy #[id number], Partial fill upon patient request if the prescription is for a schedule II opi... Start Date: 02/10/23 Status: Ordered glipiZIDE 10 mg oral tablet 1 tablet = 10 mg, By Mouth, 2 times a day, # 180 tablet, 11 Refills, Maintenance, 09/22/22 16:41:00EST, Tablet, [facility], Partial fill upon patient request if the prescription is for a schedule II opioid drug., 166, cm, 03/30/22... Start Date: 09/22/22 Status: Ordered lisinopril 10 mg oral tablet 10 mg, 1, tablet, By Mouth, Daily, # 90 tablet, Refills 1, Tot. Refills 1, Maintenance, 07/28/23 17:39:00 EST, Route to Pharmacy Electronically, [facility]/pharmacy #[id number], did not tolerate 20 mg dose;, 164.03, cm, 04/29/23 9:31:00 EDT, Height, 55.6, kg, 2... Start Date: 07/28/23 Stop Date: 01/24/24 Status: Ordered metFORMIN 500 mg oral tablet 2 tablet = 1,000 mg, By Mouth, 2 times a day, # 120 tablet, 11 Refills, Maintenance, 10/06/22 9:08:00 EST, Tablet, [facility], Partial fill upon patient request if the prescription is for a schedule II opioid drug., 166, cm, ... Start Date: 10/06/22 Status: Ordered Nitrostat 0.4 mg sublingual tablet 1 tablet = 0.4 mg, Sublingual, Every 5 minutes, PRN Chest Pain, # 100 tablet, 0 Refills, Maintenance, 11/03/19 16:02:00 EST, Tablet, [id number], 166, cm, 11/03/19 15:28:00 EST, [...] Primary Care Member Role: PCP Address: Address: [address] [place] [address] Adult & Pediatric Medicine [place], [place] [address] Name: Kati Gordon RN Position: S RN Member Role: Primary Care Nurse Care Team Related Persons Name: MARK WELLINGTON Address: [address] [place] [address] Name: FANY CASE Address: home [address] [place] [address]
--- OUTSIDE RECORDS SUMMARY | 2024-03-20 19:15 | XMS_ITS | Continuity of Care Document ---
Author Organization [facility] Address [address] [place] [address]- Care Team Providers Care Bioprocess Development Engineer Name Role Phone Troy GUNDERSON, Yessenia Primary Care Physician [phone] Encounter [facility] Date(s): 11/11/23 - 12/11/23 [facility] [address] [place], [place] [address] Allergies, Adverse Reactions, Alerts No Known Allergies Immunizations Given and Recorded Vaccine Date Status Refusal Reason influenza virus vaccine, inactivated 1 08/03/23 Gi ada influenza virus vaccine, inactivated 07/29/22 Give n influenza virus vaccine, inactivated 2 07/17/21 Gi ada tetanus-diphtheria toxoids (Td) 3 04/29/23 Given [id number] 12y+ bivalent booster vax 07/29/22 Given SARS-CoV-2 (COVID-19) mRNA-1273 vaccine 08/30/21 R ecorded SARS-CoV-2 (COVID-19) mRNA-1273 vaccine 01/04/21 R ecorded SARS-CoV-2 (COVID-19) mRNA-1273 vaccine 11/29/20 R ecorded zoster vaccine, inactivated 07/31/20 Recorded Pneumococcal Vaccine (oldterm) 11/29/07 Given 1Result Comment: [facility] [id number] 2Result Comment: Patient tollerated well 3Result Comment: [facility] [id number] Medications Ascriptin Enteric 81 mg, By Mouth, Daily, Refills 0, Tot. Refills 0, 11/16/07 18:08:35 Start Date: 11/16/07 Status: Ordered atorvastatin 40 mg oral tablet 1 tablet = 40 mg, By Mouth, Daily, # 90 tablet, 11 Refills, Maintenance, 10/06/22 9:10:00 EST, Tablet, [facility], Partial fill upon patient request if the prescription is for a schedule II opioid drug., 166, cm, 10/06/22 8:31:00 E... Start Date: 10/06/22 Status: Ordered glipiZIDE 10 mg oral tablet 1 tablet = 10 mg, By Mouth, 2 times a day, # 180 tablet, 11 Refills, Maintenance, 09/22/22 16:41:00EST, Tablet, [facility], Partial fill upon patient [...] 11 Refills, Maintenance, 10/06/22 9:08:00 EST, Tablet, [facility], Partial fill upon patient request if the prescription is for a schedule II opioid drug., 166, cm, ... Start Date: 10/06/22 Status: Ordered Nitrostat 0.4 mg sublingual tablet 1 tablet = 0.4 mg, Sublingual, Every 5 minutes, PRN Chest Pain, # 100 tablet, 0 Refills, Maintenance, 11/03/19 16:02:00 EST, Tablet, [facility] [id number] [facility], 166, cm, 11/03/19 15:28:00 EST, [...] Care Nurse Name: Yessenia Simmons MD Position: [facility] Physician - Primary Care Member Role: PCP Address: Address: [address] [place] [address] Adult & Pediatric Medicine [place], [place] [address] Name: Kati Gordon RN Position: S RN Member Role: Primary Care Nurse Care Team Related Persons Name: MARK WELLINGTON Address: home [address] [place] [address] Name: FANY CASE Address: home [address] [place] [address]
--- OUTSIDE RECORDS SUMMARY | 2024-03-20 19:15 | XMS_ITS | Continuity of Care Document ---
Author Organization [facility] Address [address] [place] [address]- Care Team Providers Care Radio Adjuster Name Role Phone Troy GUNDERSON, Yessenia Primary Care Physician [phone] Encounter [facility] Date(s): 07/14/21 - 08/13/21 [facility] [address] [place], [place] [address] Allergies, Adverse Reactions, Alerts Substance Reaction Severity [...] Refills, Maintenance, 07/17/21 10:05:00 EDT, Tablet, [id number], Partial fill upon patient request if the prescription is for a schedule IIopioid drug., 166, cm, 07/17/21 9:36:00 EDT, Height... Start Date: 07/17/21 Status: Ordered carvedilol 12.5 mg oral tablet 12.5 mg, 1, tablet, By Mouth, 2 times a day, # 180 tablet, Refills 11, Tot. Refills 11, Maintenance, 07/17/21 10:05:00 EDT, Route to Pharmacy Electronically, [id number], Partial fill upon patient request if the prescription is for a schedule... Start Date: 07/17/21 Status: Ordered ciclopirox 0.77% topical cream 1 application, Topically, 2 times a day, # 30 Gm, 0 Refills, Maintenance, 01/21/21 9:18:00 EDT, Cream, [id number], Partial fill upon patient request [...] 21:34:00 EDT, 06/26/21 21:34:00 EDT, Tablet, [id number], Partial fill upon patient request if the prescript... Start Date: 06/26/21 Stop Date: 06/21/22 Status: Ordered Eliquis 5 mg oral tablet 1 tablet = 5 mg, By Mouth, 2 times a day, TAKE 1 TABLET BY MOUTH TWICE A DAY, # 180 tablet, 11 Refills, Maintenance, 06/21/22 21:34:00 EDT, Tablet, [id number], Partial fill upon patient request if the prescription is for a schedule II opioid... Start Date: 06/21/22 Status: Ordered glipiZIDE 10 mg oral tablet 1 tablet = 10 mg, By Mouth, 2 times a day, for 90 days, # 180 tablet, 3 Refills, Hard Stop 06/21/2221:35:00 EDT, 06/26/21 21:35:00 EDT, Tablet, [facility], Partial fill upon patient requestif the prescription is for a schedule II opioid shi... Start Date: 06/26/21 Stop Date: 06/21/22 Status: Ordered glipiZIDE 10 mg oral tablet 1 tablet = 10 mg, By Mouth, 2 times a day, # 180 tablet, 11 Refills, Maintenance, 06/21/22 21:35:00EDT, Tablet, [id number], Partial fill upon patient request if the prescription is for a schedule II opioid drug., 166, cm, 04/11/21 8:31:00 ED... Start Date: 06/21/22 Status: Ordered lisinopril 10 mg oral tablet 10 mg, 1, tablet, By Mouth, Daily, # 90 tablet, Refills 6, Tot. Refills 6, Maintenance, 04/11/21 8:49:00 EDT, Route to Pharmacy Electronically, [id number], Partial fill upon patient request if the prescription is for a schedule II opioid drug... Start Date: 04/11/21 Status: Ordered metFORMIN 500 mg oral tablet 2 tablet = 1,000 mg, By Mouth, 2 times a day, # 120 tablet, 3 Refills, Maintenance, 11/11/20 15:58:00 EST, Tablet, [id number], Partial fill upon patient request if the prescription is for a schedule II opioid drug., 166, cm, 11/03/19 15:28:00... Start Date: 11/11/20 Status: Ordered Nitrostat 0.4 mg sublingual tablet 1 tablet = 0.4 mg, Sublingual, Every 5 minutes, PRN Chest Pain, # 100 tablet, 0 Refills, Maintenance, 11/03/19 16:02:00 EST, Tablet, [id number], 166, cm, 11/03/19 15:28:00 EST, [...]
--- OUTSIDE RECORDS SUMMARY | 2024-03-20 19:15 | XMS_ITS | Continuity of Care Document ---
Author Organization [facility] ter Address [address] [place] [address]- Care Team Providers Care Building Construction Supervisor Name Role Phone Yessenia Simmons MD Primary Care Phys[place] [facility] [place] - 02/15/[address] [id number] Discharge Disposition: A-D/C Home Attending Physician: Sidra Pal MD Admitting Physician: Almas Chamberlain MD Referring Physician: Not on Staff, Referring MD Allergies, Adverse Reactions, Alerts No Known Allergies Immunizations Given and Recorded Vaccine Date Status Refusal Reason [id number] 12y+ bivalent booster vax 07/29/22 Given influenza [...] 11 Refills, Maintenance, 10/06/22 9:10:00 EST, Tablet, [facility], Partial fill upon patient request if the prescription is for a schedule II opioid drug., 166, cm, 10/06/22 8:31:00 E... Start Date: 10/06/22 Status: Ordered carvedilol 25 mg oral tablet 25 mg, Tablet, By Mouth, Hold for: sbp<110, HR<55, 02/15/23 9:00:00 EDT Start Date: 02/15/23 Stop Date: 02/15/23 Status: Completed carvedilol 25 mg oral tablet 25 mg, 1, tablet, By Mouth, 2 times a day, # 180 tablet, Refills 0, Tot. Refills 0, Maintenance, 02/10/23 8:50:00 EDT, Route to Pharmacy Electronically, [id number], Partial fill upon patient request if the prescription is for a schedule II opi... Start Date: 02/10/23 Status: Ordered Eliquis 5 mg oral tablet 1 tablet = 5 mg, By Mouth, 2 times a day, TAKE 1 TABLET BY MOUTH TWICE A DAY, # 180 tablet, 11 Refills, Maintenance, 06/21/22 21:34:00 EDT, Tablet, [id number], Partial fill upon patient request if the prescription is for a schedule II opioid... Start Date: 06/21/22 Status: Ordered glipiZIDE 10 mg oral tablet 1 tablet = 10 mg, By Mouth, 2 times a day, # 180 tablet, 11 Refills, Maintenance, 09/22/22 16:41:00EST, Tablet, [facility], Partial fill upon patient request if [...] 11 Refills, Maintenance, 10/06/22 9:08:00 EST, Tablet, [facility], Partial fill upon patient request if the prescription is for a schedule II opioid drug., 166, cm, ... Start Date: 10/06/22 Status: Ordered Nitrostat 0.4 mg sublingual tablet 1 tablet = 0.4 mg, Sublingual, Every 5 minutes, PRN Chest Pain, # 100 tablet, 0 Refills, Maintenance, 11/03/19 16:02:00 EST, Tablet, [id number], 166, cm, 11/03/19 15:28:00 EST, Height, 65.3,kg, 11/01/19 22:48:00 EST, Dry Weight Start Date: 11/03/19 Stop Date: 12/03/19 Status: Ordered Problem List Condition Confirmation Course Effective Dates Status H ealth Status Informant Atrial fibrillation Confirmed Active Diabetes mellitus Confirmed Active Ischemic cardiomyopathy Confirmed Active Hyperlipidemia Confirmed Active Hypertension Confirmed Active Results Radiology Reports * Exam Date Time Procedure Performing Provider Status 02/12/23 5:[address] Angio Neck Carmela Alcala; Auth (V erified) Notes: (CT Angio Neck) Reason For Exam: Aneurysm, neck vessel(s);Other: RESULT: CT Angio Neck CT Angio Head, CT Angio Neck Hx of Present Illness: per daughter - pt was sitting in a chair while talking with fam. Daughter says pt was c o dizziness, then became unresponsive eyes rolled to back of head stopped breathing paleand became pale. Did not fall out of chair. Called EMS; Reason: Other:; Neuro deficit, acute, stroke suspected; Clinical Question(s): Other:; Hematoma Aneurysm; Order Comment: / Other: TECHNIQUE: CT angiogram of the head and neck was performed after bolus administration of intravenous contrast. 100 mL of Omnipaque 300 was administered intravenously. Coronal and sagittal MIP reformatted images were obtained. Additional 3-D images were created on a separate workstation under concurrent supervision by the attending radiologist. All stenoses are measured using NASCET criteria. Weight-based protocol using automatic tube modulation was used to optimize exposure parameters. RADIATION DOSE PARAMETERS: CTDIvol Body: 19.20 mGy, DLP Body: 483 mGy*cm. CTDIvol Head: 45.10 mGy, DLP Head: 773 mGy*cm. COMPARISON: Noncontrast CT head performed concurrently. FINDINGS: CTA OF THE NECK: Arch: There is a three vessel aortic arch. There is mild atherosclerotic plaque of the aortic arch,but origins of the supra aortic vessels are patent. Right carotid system: A moderate amount of calcified plaque is present at the bifurcation and in the bulb but no stenosis is produced. Left carotid system: There is minor calcification at the bifurcation without stenosis. There is a co-dominant vertebral artery system. Right vertebral: There is a potential 50% stenosis at the origin related to calcified plaque. The remainder of the vessel is normal. Left vertebral: There is less than 50% stenosis of the proximal vessel just distal to its origin. The remainder of the vessel is normal. Other: Soft tissues and bones: No evidence of lymphadenopathy or mass. A right sided pacemaker is noted. CTA OF THE HEAD: Anterior circulation: There is calcification of the intracranial internal carotid arteries with bilateral 50% stenoses. The anterior and middle cerebral arteries are normal. Posterior circulation: There is calcification of the intracranial right vertebral artery with a 50-75% stenosis produced. The left vertebral artery is normal. The basilar, superior cerebellar and posterior cerebral arteries are patent. There is mild narrowing of the origin of the right posterior cerebral artery and of the P2 segment of the left posterior cerebral artery.. Veins: Major dural venous sinuses are patent. Other: Soft tissues and bones: No midline shift or effacement of the basal cisterns. No space-occupying hemorrhage. No territorial loss of albert-white matter differentiation. Deep white matter hypoattenuation is consistent with chronic ischemia. IMPRESSION: 1. Probable less than 50% stenosis of the proximal left vertebral artery. 2. Probable 50% stenosis of the origin of the right vertebral artery. There is additional 50-75% stenosis of the intracranial right vertebral artery. 3. No significant stenosis of either carotid artery is noted in the neck. There are approximately 50% stenoses of the intracranial internal carotid arteries. A similar preliminary report was provided by [facility]. WSN: [id number] Ordering Physician: Jacki Longoria Dictated By: Chaim Roman MD Dictated Date/Time: 02/13/23 1:31 pm Reviewed By: Chaim Roman MD Signed By: Chaim Roman MD Signed Date/Time: 02/13/23 1:31 pm Transcribed By: LEOPOLDO Transcribed Date/Time: 02/13/23 1:24 pm * Exam Date Time Procedure Performing Provider Status 02/12/23 5:[address] Angio Head Carmela Alcala; Auth (V erified) Notes: (CT Angio Head) Reason For Exam: Neuro deficit, acute, stroke suspected;Other: RESULT: CT Angio Head CT Angio Head, CT Angio Neck Hx of Present Illness: per daughter - pt was sitting in a chair while talking with fam. Daughter says pt was c o dizziness, then became unresponsive eyes rolled to back of head stopped breathing paleand became pale. Did not fall out of chair. Called EMS; Reason: Other:; Neuro deficit, acute, stroke suspected; Clinical Question(s): Other:; Hematoma Aneurysm; Order Comment: / Other: TECHNIQUE: CT angiogram of the head and neck was performed after bolus administration of intravenous contrast. 100 mL of Omnipaque 300 was administered intravenously. Coronal and sagittal MIP reformatted images were obtained. Additional 3-D images were created on a separate workstation under concurrent supervision by the attending radiologist. All stenoses are measured using NASCET criteria. Weight-based protocol using automatic tube modulation was used to optimize exposure parameters. RADIATION DOSE PARAMETERS: CTDIvol Body: 19.20 mGy, DLP Body: 483 mGy*cm. CTDIvol Head: 45.10 mGy, DLP Head: 773 mGy*cm. COMPARISON: Noncontrast CT head performed concurrently. FINDINGS: CTA OF THE NECK: Arch: There is a three vessel aortic arch. There is mild atherosclerotic plaque of the aortic arch,but origins of the supra aortic vessels are patent. Right carotid system: A moderate amount of calcified plaque is present at the bifurcation and in the bulb but no stenosis is produced. Left carotid system: There is minor calcification at the bifurcation without stenosis. There is a co-dominant vertebral artery system. Right vertebral: There is a potential 50% stenosis at the origin related to calcified plaque. The remainder of the vessel is normal. Left vertebral: There is less than 50% stenosis of the proximal vessel just distal to its origin. The remainder of the vessel is normal. Other: Soft tissues and bones: No evidence of lymphadenopathy or mass. A right sided pacemaker is noted. CTA OF THE HEAD: Anterior circulation: There is calcification of the intracranial internal carotid arteries with bilateral 50% stenoses. The anterior and middle cerebral arteries are normal. Posterior circulation: There is calcification of the intracranial right vertebral artery with a 50-75% stenosis produced. The left vertebral artery is normal. The basilar, superior cerebellar and posterior cerebral arteries are patent. There is mild narrowing of the origin of the right posterior cerebral artery and of the P2 segment of the left posterior cerebral artery.. Veins: Major dural venous sinuses are patent. Other: Soft tissues and bones: No midline shift or effacement of the basal cisterns. No space-occupying hemorrhage. No territorial loss of albert-white matter differentiation. Deep white matter hypoattenuation is consistent with chronic ischemia. IMPRESSION: 1. Probable less than 50% stenosis of the proximal left vertebral artery. 2. Probable 50% stenosis of the origin of the right vertebral artery. There is additional 50-75% stenosis of the intracranial right vertebral artery. 3. No significant stenosis of either carotid artery is noted in the neck. There are approximately 50% stenoses of the intracranial internal carotid arteries. A similar preliminary report was provided by [facility]. WSN: [id number] Ordering Physician: Jacki Longoria Dictated By: Chaim Roman MD Dictated Date/Time: 02/13/23 1:31 pm Reviewed By: Chaim Roman MD Signed By: Chaim Roman MD Signed Date/Time: 02/13/23 1:31 pm Transcribed By: LEOPOLDO Transcribed Date/Time: 02/13/23 1:24 pm * Exam Date Time Procedure Performing Provider Status 02/12/23 5:[address] Head/Brain W/O Contrast Anastasiia Alcala; Martha (Verified) Notes: (CT Head/Brain W/O Contrast) Reason For Exam: Neuro deficit, acute, stroke suspected;Other: RESULT: CT Head/Brain W/O Contrast CT Head/Brain W/O Contrast INDICATION: per daughter - pt was sitting in a chair while talking with fam. Daughter says pt was co dizziness, then became unresponsive eyes rolled to back of head stopped breathing pale and becamepale. Did not fall out of chair. Called EMS; Reason: Neuro deficit, acute, stroke suspected; Clinical Question(s): Hematoma Infarction; TECHNIQUE: Noncontrast head CT using axial technique and reconstructed in axial and coronal planes.Iterative reconstruction techniques are used to optimize dose and image quality. CTDIvol Body: 19.20 mGy, DLP Body: 483 mGy*cm. CTDIvol Head: 45.10 mGy, DLP Head: 773 mGy*cm. COMPARISON: CT head and neck angiogram performed concurrently. FINDINGS: Fishing Tool Technician Oil Well view findings, lines and tubes: None. BRAIN AND EXTRA-AXIAL SPACES: No parenchymal hemorrhage, midline shift, or mass effect. Albert-white matter differentiation is wellpreserved. No acute infarct. Negative insular ribbon sign. Atherosclerotic vascular calcification of the carotid arteries but negative hyperdense vessel sign. Moderate prominence of the ventricles and sulci consistent with parenchymal volume loss. Mild low-density white matter changes. No subarachnoid hemorrhage. No subdural or epidural collection. CALVARIUM, SKULL BASE, AND SOFT TISSUES: No fractures or suspicious bony lesions. The paranasal sinuses and mastoid air cells are clear. Visualized orbits and globes are intact. The extracranial soft tissues are unremarkable. IMPRESSION: No acute intracranial pathology. I have personally reviewed the images and I agree with this report. WSN: [id number] Ordering Physician: Jacki Longoria Dictated By: David Higuera MD Dictated Date/Time: 02/12/23 5:46 pm Reviewed By: Garret Hanley MD Signed By: Garret Hanley MD Signed Date/Time: 02/12/23 5:51 pm Transcribed By: LEOPOLDO Transcribed Date/Time: 02/12/23 5:34 pm * Exam Date Time Procedure Performing Provider Status 02/12/23 3:51 PM Chest 2 Views Frontal and Lat Meagan Treadwell; Auth (Verified) Notes: (Chest 2 Views Frontal and Lat) Reason For Exam: Shortness of Breath RESULT: Chest 2 Views Frontal and Lat Chest 2 Views Frontal and Lat Hx of Present Illness: per daughter - pt was sitting in a chair while talking with fam. Daughter says pt was c o dizziness, then became unresponsive eyes rolled to back of head stopped breathing paleand became pale. Did not fall out of chair. Called EMS. Reason: Shortness of Breath. Clinical Question(s): CHF. COMPARISON: 02/08/2023, 11/01/2019. FINDINGS: LINES AND TUBES: Dual-lead left subclavian pacer/AICD wires are intact. LUNGS AND PLEURA: Clear lungs. Normal pulmonary vascularity. No pleural effusion. No pneumothorax. HEART, MEDIASTINUM AND JAIME: Heart is normal in size. Normal mediastinal and hilar contour. BONES AND SOFT TISSUES: No acute abnormality. Status post median sternotomy. IMPRESSION: No evidence of acute abnormality. No interval change. I have personally reviewed the images and I agree with this report. WSN: [id number] Ordering Physician: Daya Trent Dictated By: Dario Vernon MD Dictated Date/Time: 02/12/23 4:05 pm Reviewed By: Alexei Kearney MD, V Signed By: Alexei Kearney MD, V Signed Date/Time: 02/12/23 4:10 pm Transcribed By: LEOPOLDO Transcribed Date/Time: 02/12/23 3:53 pm Vital Signs Most recent to oldest [Reference Range]: 1 2 3 Height 164.03 cm (02/14/23 3:49 PM) 164.03 cm (02/14/23 11:53 AM) 164.03 cm (02/14/23 8:44 AM) Weight 55.6 kg (02/12/23 10:23 PM) 55.5 kg (02/12/23 9:57 PM) Oxygen Saturation [94-100 %] 94 % (02/15/23 7:00 AM) 95 % (02/15/23 3:00 AM) 96 % (02/14/23 11:00 PM) Pulse Rate [55-90 bpm] 68 bpm (02/15/23 8:53 AM) 63 bpm (02/15/23 7:00 AM) 63 bpm (02/15/23 3:00 AM) Body Mass Index [18.5-24.99 kg/m2] 20.66 kg/m2 (02/12/23 10:23 PM) Blood Pressure [90-138/55-84 mm Hg] 134/96mm Hg (02/15/23 8:53 AM) 121/68mm Hg (02/15/23 7:00 AM) 112/55mm Hg (02/15/23 3:00 AM) Respiratory Rate [16-30 br/min] 18 br/min (02/15/23 7:00 AM) 18 br/min (02/15/23 3:00 AM) 18 br/min (02/14/23 11:00 PM) Temperature [96.8-100.4 DegF] 98.1 DegF (02/15/23 7:00 AM) 98.1 DegF (02/15/23 3:00 AM) 97.9 DegF (02/14/23 11:00 PM) Mode of Delivery (Oxygen) Room air (02/15/23 7:00 AM) Room air (02/15/23 3:00 AM) Room air (02/14/23 11:00 PM) Blood pressure sites Arm, left (02/15/23 7:00 AM) Arm, left (02/15/23 3:00 AM) Arm, left (02/14/23 11:00 PM) Temperature Route Oral (02/15/23 7:00 AM) Oral (02/15/23 3:00 AM) Oral (02/14/23 11:00 PM) Dry Weight 55.6 kg (02/12/23 10:23 PM) Weight Obtained Via Bed scale (02/12/23 10:23 PM) Bed scale (02/12/23 9:57 PM) Dry Weight Obtained Via Bed scale (02/12/23 10:23 PM) Social History Social History Type Response Smoking Status Never smoker entered on: 02/12/16 Sex Admission evaluation note * Qasim GUNDERSON, Esthela Albright: MODIFY, MODIFY, PERFORM Event Display: Admission Note Authored Date: [id number] Patient: ??SOREN EBCKHAM ? Age:??82 Years?Sex:??Male?:??1940?? Chief Complaint/Reason for Consultation coming from home. was outside with when she noticed he went limp. saw a jolt in his chest nearhis defibrilator. pt unresponsive when EMS arrived but now awake. Pt stated he feels like he is going to , LKWT 1400 History of Present Illness 82-year-old male with PMH of severe CAD s/p stents, HFrEF 25%, s/p AICD in place, atrial flutter, HTN, HLD, type 2 diabetes mellitus, alcohol use disorder came to the ED after an episode of witnessedsyncopal event at home. ?? Patient's medical chart reviewed, seen and examined at bedside.?? Patient alert awake and oriented by the time of my evaluation.?? He denies any current complaints now but states he cannot recall anyof the event what happened.?? Last thing he remembers when EMS was put trying to put IV cannula to him.?? As per the chart review patient's daughter stated that patient was sitting in a chair outsideand where she witnessed him becoming unresponsive with a brief episode of tonic-clonic shaking of the hands for few seconds which resolved on its own and followed by loss of consciousness for approximately 1 minute.?? She states that patient was altered after the episode and so called EMS to bring to the ED for evaluation.?? On arrival to the ED patient is more awake and alert slightly confused but answering all questions approximately.?? Patient denies any chest pain, shortness of breath, palpitations, nausea, vomiting, headache, blurry vision, fever, chills, cough, sore throat, runny nose, abdominal pain, constipation, diarrhea, dysuria, hematuria, hematochezia/melena.?? Endorses compliance with his medications.?? Eating and drinking at his baseline.?? Patient was recently admitted and discharged on 02/11 due to ACS rule out. ?? Initially in the ED patient remains afebrile, HR 59, RR 16, BP 110/67, saturation 96% on room air.?? No leukocytosis WBC 4.6, Hgb 11.9, PLT 173, electrolytes normal, BUN/creatinine 15/1, blood glucose 285, INR 1.3, mag 1.6, LFTs normal, troponins x2 negative, C-19 negative, UA negative, CT head with no acute findings, chest x-ray with no acute findings, echo was recently done on 02/09/2023 withnormal left ventricular size with mild concentric left ventricle hypertrophy and reduced ejection fraction of 25 to 30%.?? Patient received around 250 cc of fluid bolus and admitted to observation medicine service for further management Review of Systems All the systems are reviewed and are negative, except as above Objective Measurements?? Height: 164.03 cm (02/12/23) Weight: 55.6 kg (02/12/23) Dry Weight: 55.6 kg (02/12/23) Body Mass Index: 20.66 kg/m2 (02/12/23) ? Vital Signs?? Temperature: 97.8 DegF (02/13/23 03:00:00) Temperature Route: Oral (02/13/23 03:00:00) Pulse Rate: 59 bpm (02/13/23 03:00:00) Respiratory Rate: 16 br/min (02/13/23 03:00:00) Systolic Blood Pressure: 110 mm Hg (02/13/23 03:00:00) Diastolic Blood Pressure: 67 mm Hg (02/13/23 03:00:00) Blood pressure sites: Arm, left (02/13/23 03:00:00) Mean Arterial Pressure: 103 mm Hg (02/12/23 22:23:00) Pulse Pressure: 79 mm Hg (02/12/23 22:23:00) Oxygen Saturation: 96 % (02/13/23 03:00:00) Mode of Delivery (Oxygen): Room air (02/13/23 03:00:00) Early Warning Score: 2 (02/13/23 03:48:00) ? Pain Scores 1 - 10 Pain Scale Score: 0 (13:46) ? Intake/Output? 02/12 13:28 02/12 07:00 02/11 07:00 02/10 07:00 ?? 02/13 06:17 02/13 06:17 02/12 06:59 02/11 06:59 Urine Count ?1 ?1 ?0 ?0 ? Precautions Seizure Precautions ? Physical Exam ?? Gen- not in acute distress,comfortabily lying on bed, speaking in full sentences. HEENT- Normocephalic, Atraumatic, pupils equally reacting to light and accommodation. Extraocular movements intact. No pallor, icterus Neck-supple, no JVD, no lymphadenopathy. Heart-S1S2(+),??regular, no murmurs/rubs/gallops. lungs- Clear, b/l air entry, no wheezing/rales/rhonchi. Abdomen-soft, nontender,nondistended,??bowel sounds present in 4q, No guarding, No rigidity, No rebound tenderness. Extremities-pulses palpable??2+. No pedal edema. No calf tenderness. Neurological- AAO??3. No focal neurological deficits noted. Skin-no rash, no petechia Psychiatric-patient???s mood is stable. ? (02/12/2023 17:[address] Head/Brain W/O Contrast) MPRESSION: ?? No acute intracranial pathology. ?? (02/12/2023 15:51 EDT Chest 2 Views Frontal and Lat) MPRESSION: ?? No evidence of acute abnormality. No interval change. ? Echocardiogram 02/09/2023 ummary ??The left ventricular size is normal. ??There is mild concentric left ventricular hypertrophy. ??Indeterminate diastolic function. ??The basal to mid inferior wall is akinetic . ??The basal to mid inferolateral wall is akinetic . ??The distal septal wall is akinetic . ??The basal to mid lateral wall is akinetic . ??The apex is hypokinetic with contrast evidence of reduced flow/no thrombus ??seen . ??There is hypokinesis of the septum. ??The left ventricular ejection fraction is 25-30 %. ??There is mild dilation of the aortic root . ??The right ventricle is poorly visualized. ??A pacer/ICD wire is seen in the right ventricle. ??Right ventricular systolic function is mildly reduced. ??There is mild aortic regurgitation. ?? Assessment/Plan 82-year-old male with PMH of severe CAD s/p stents, HFrEF 25%, s/p AICD in place, atrial flutter, HTN, HLD, type 2 diabetes mellitus, alcohol use disorder came to the ED after an episode of witnessedsyncopal event at home. Initially in the ED patient remains afebrile, HR 59, RR 16, BP 110/67, saturation 96% on room air.?? No leukocytosis WBC 4.6, Hgb 11.9, PLT 173, electrolytes normal, BUN/creatinine 15/1, blood glucose 285, INR 1.3, mag 1.6, LFTs normal, troponins x2 negative, C-19 negative, UA negative, CT head with no acute findings, chest x-ray with no acute findings, echo was recently done on 02/09/2023 with normal left ventricular size with mild concentric left ventricle hypertrophy and reduced ejection fraction of 25 to 30%.?? Patient received around 250 cc of fluid bolus and admitted to observation medicine service for further management ?? Syncope -seizures vs vasovagal vs cardiac syncope Vitals as per unit standards Telemetry monitoring Neurochecks every 4 hours Seizure precautions Fall precautions Recent echocardiogram done??with EF of 25 to 30%, found to have hypokinesis of the septum??and apex CT head??with no acute findings CTA head and neck??report in process, please follow Neurology consult order placed Consider EEG AICD interrogation in the a.m. ?? Coronary artery disease HTN HLD Atrial flutter Telemetry monitoring Aspirin 81 mg daily Atorvastatin 40 mg daily Coreg 25 mg twice daily Lisinopril??20 mg daily Eliquis 5 mg twice daily Daily trend electrolytes and replete as needed?? SL nitroglycerin as needed for chest pain ? diabetes mellitus???lispro sliding scale. ??Held home Metformin and glipizide ? Code???DNR, confirmed with patient at bedside Diet???diabetic diet DVT prophylaxis???patient already on Eliquis, VTE guidelines done ?? Patient seen and examined on 02/13/2023 ?? Histories Allergies Allergies ?(Active and Proposed Allergies Only) NKA? (Severity: Unknown severity, Onset: Unknown) ? Past Medical History/Problem List Active Problems??(5) Atrial fibrillation Diabetes mellitus Hyperlipidemia Hypertension Ischemic cardiomyopathy ? Past Surgical History Coronary bypass grafting x3 with SOLANO to LAD and reverse saphenous vein graft to posterior lateral ventricular branch of right coronary artery and posterior descending coronary artery, and epiaortic probing of ascending aorta: 08/29/09 ? Social History Alcohol Details:??Use: Past. Details:??Use: Current. Employment/School Details:??Status: Retired. Exercise Details:??Self assessment: Good condition. Home/Environment Details:??Living situation: Home/Independent. Nutrition/Health Details:??Diet: Regular. Tobacco Details:??Never smoker ? Family History Mother: Cardiovascular disease; Diabetes mellitus Father: Cardiovascular disease; Diabetes mellitus Sister: Cardiovascular disease Brother: Cardiovascular disease ? Medications Home Medications apixaban (Eliquis 5 mg [...] tablet)?1?tab(s)?0.4?Milligram?Sublingual?Every 5 minutes?as needed?Chest Pain?for 30?Days ? Inpatient Medications Medications (15) Active SCHEDULED: (7) Apixaban 5 mg Tablet (Eliquis) ??5 mg, By Mouth, 2 times a day Aspirin 81 mg EC Tablet (aspirin 81 mg oral delayed release tablet) ??81 mg, By Mouth, Daily Atorvastatin 40 mg Tablet (atorvastatin 40 mg oral tablet) ??40 mg, By Mouth, Daily Carvedilol 25 mg Tablet (carvedilol 25 mg oral tablet) ??25 mg, By Mouth, 2 times a day Insulin Lispro 100 units/mL Inj (3mL) (Insulin LISPRO Sliding Scale) ??2-10 units, Subcutaneous Injection, 3 times a day before meals Lisinopril 20 mg Tablet (lisinopril 20 mg oral tablet) ??20 mg, By Mouth, Daily NaCl 0.9% Flush 3ml (NaCL 0.9% Flush) ??3 mL, IV Push, Every 8 hours CONTINUOUS: (0) PRN: (8) Acetaminophen 325 mg Tablet (Acetaminophen Tablet) ??650 mg, By Mouth, Every 4 hours Dextromethorphan-Guaifenesin 20 mg-200 mg/10 mL Liqu UD (Robitussin DM Liquid) ??10 mL, By Mouth, Every 4 hours Melatonin 3 mg Tablet (Melatonin Tablet) ??3 mg, By Mouth, Daily at bedtime NaCl 0.9% Flush 3ml (NaCL 0.9% Flush) ??3 mL, IV Push, Every 8 hours Nitroglycerin 0.4 mg Sublingual Tablet (Nitrostat 0.4 mg sublingual tablet) ??0.4 mg, Sublingual, Every 5 minutes Polyethylene Glycol 17 Gm Powder (MiraLax Powder) ??17 Gm 1 pack/packet, By Mouth, Daily Senna 8.6 mg / Docusate 50 mg tablet (Docusate/Senna Tablet) ??1 tablet, By Mouth, 2 times a day Simethicone 80 mg Chewable Tablet (Simethicone Tablet) ??80 mg, Chew, 3 times a day ? Results Recent Labs BLOOD COUNT & DIFF WBC 4.6 k/mm3 ()?? 02/12/2023 14:14 RBC 3.93 m/mm3 (Low)?? 02/12/2023 14:14 Hgb 11.9 Gm/dL (Low)?? 02/12/2023 14:14 Hct 36.9 % (Low)?? 02/12/2023 14:14 MCV 93.9 femtoliters ()?? 02/12/2023 14:14 MCH 30.3 pg ()?? 02/12/2023 14:14 MCHC 32.2 g/dL (Low)?? 02/12/2023 14:14 Platelet Count 173 k/mm3 ()?? 02/12/2023 14:14 RDW-SD 42.4 femtoliters ()?? 02/12/2023 14:14 MPV 10.0 femtoliters ()?? 02/12/2023 14:14 Nucleated RBC (Automated) 0.0 #/100 WBC'S ()?? 02/12/2023 14:14 Abs. NRBC 0.0 k/mm3 ()?? 02/12/2023 14:14 Abs. Neut 3.3 k/mm3 ()?? 02/12/2023 14:14 Abs. Lymph 0.8 k/mm3 ()?? 02/12/2023 14:14 Abs. [place] 0.5 k/mm3 ()?? 02/12/2023 14:14 Abs. Eo 0.1 k/mm3 ()?? 02/12/2023 14:14 Abs. Baso 0.0 k/mm3 ()?? 02/12/2023 14:14 Neut % 70.8 % ()?? 02/12/2023 14:14 Lymph % 16.7 % ()?? 02/12/2023 14:14 [place] % 10.4 % ()?? 02/12/2023 14:14 Eos % 1.5 % ()?? 02/12/2023 14:14 Baso % 0.4 % ()?? 02/12/2023 14:14 Imm Gran 0.2 % ()?? 02/12/2023 14:14 Abs. Imm Gran 0.0 k/mm3 ()?? 02/12/2023 14:14 ?? CARDIAC Nt-Probnp 358 pg/mL ()?? 02/12/2023 14:14 High Sensitivity Troponin (HSTnT) 22 ng/L (High)?? 02/12/2023 17:00 ?? CHEM GENERAL Sodium 137 mmol/L ()?? 02/12/2023 14:14 Potassium 5.0 mmol/L ()?? 02/12/2023 14:14 Chloride 102 mmol/L ()?? 02/12/2023 14:14 Bicarbonate Level 23 mmol/L ()?? 02/12/2023 14:14 Anion Gap 12 ()?? 02/12/2023 14:14 Glucose Level 394 mg/dL (High)?? 02/12/2023 14:14 Glucose, POC 285 mg/dL (High)?? 02/12/2023 22:21 BUN 15 mg/dL ()?? 02/12/2023 14:14 Creatinine-Blood 1.0 mg/dL ()?? 02/12/2023 14:14 Estimated GFR Creatinine 74 ML/MIN/1.73 M2 ()?? 02/12/2023 14:14 Calcium 9.1 mg/dL ()?? 02/12/2023 14:14 Magnesium 1.6 mg/dL ()?? 02/12/2023 14:14 Protein, Total 6.1 Gm/dL (Low)?? 02/12/2023 14:14 Albumin 3.8 Gm/dL ()?? 02/12/2023 14:14 AG Ratio 1.7 ()?? 02/12/2023 14:14 Alkaline Phosphatase 102 units/L ()?? 02/12/2023 14:14 AST (SGOT) 21 units/L ()?? 02/12/2023 14:14 ALT (SGPT) 18 units/L ()?? 02/12/2023 14:14 Bilirubin, Total 0.6 mg/dL ()?? 02/12/2023 14:14 ?? COAG INR 1.3 (High)?? 02/12/2023 14:14 Protime (PT) 13.1 seconds (High)?? 02/12/2023 14:14 ?? UA/URINALYSIS Appear/Color, Urine LIGHT YELLOW ()?? 02/12/2023 17:57 Specific [place], Urine 1.035 (High)?? 02/12/2023 17:57 pH, Urine 6.0 ()?? 02/12/2023 17:57 Albumin, Urine NEGATIVE ()?? 02/12/2023 17:57 Glucose, Urine 4+ (Abnormal)?? 02/12/2023 17:57 Ketones, Urine NEGATIVE ()?? 02/12/2023 17:57 Bilirubin, Urine NEGATIVE ()?? 02/12/2023 17:57 Hemoglobin, Urine NEGATIVE ()?? 02/12/2023 17:57 Nitrite, Urine NEGATIVE ()?? 02/12/2023 17:57 Leukocyte, Urine NEGATIVE ()?? 02/12/2023 17:57 Urobilinogen NORMAL mg/dL ()?? 02/12/2023 17:57 WBC's, Urine <1 /HPF ()?? 02/12/2023 17:57 RBC's, Urine 1 /HPF ()?? 02/12/2023 17:57 Hold Urine Culture Testing available 48 hours from time of collection. ()?? 02/12/2023 17:57 ?? URINE OTHER Est Creatinine Clearance 44.79 mL/min ()?? 02/12/2023 23:23 ?? VIROLOGY COVID-19 by RT-PCR NEGATIVE ()?? 02/12/2023 14:16 ? Urinalysis Albumin, Urine: NEGATIVE (17:57) Appear/Color, Urine: LIGHT YELLOW (17:57) Bilirubin, Urine: NEGATIVE (17:57) Est Creatinine Clearance: 44.79 mL/min (23:23) Glucose, Urine: 4+ Abnormal (17:57) Hemoglobin, Urine: NEGATIVE (17:57) Hold Urine Culture: Testing available 48 hours from time of collection. (17:57) Ketones, Urine: NEGATIVE (17:57) Leukocyte, Urine: NEGATIVE (17:57) Nitrite, Urine: NEGATIVE (17:57) pH, Urine: 6 (17:57) RBC's, Urine: 1 /HPF (17:57) Specific [place], Urine:??1.035??High (17:57) Urobilinogen: NORMAL (17:57) WBC's, Urine: <1 (17:57) ?? Microbiology ?? COVID-19 (Novel Coronavirus), Rapid PCR?? Completed?? Source: Nasal Body Site: Nose Collected Dt/Tm: 02/12/2023 14:13 Last Updated Dt/Tm: 02/12/2023 16:02 ? Cardiology Labs Nt-Probnp: 358 pg/mL (02/12/23 14:14:00) High Sensitivity Troponin (HSTnT):??22 ng/L??High (02/12/23 17:00:00) High Sensitivity Troponin (HSTnT):??24 ng/L??High (02/12/23 14:14:00) ? [1]??Echo Complete-Doppler, Colorflow, M-Mode; Jacklyn Mcmahon MD 02/09/2023 09:28 EDT Cardiology * Event Display: Cardiac Rhythm Strips Authored Date: EKG study * Event Display: EKG Authored Date: Hospital Progress note * Mona Flower RN: PERFORM, SIGN, VERIFY Event Display: Progress Note Hospital Authored Date: [id number] Patient: SOREN BECKHAM Age: 82 years Sex: Male : 1940 Associated Diagnoses: None Author: Mona Flower RN Findings Problem Related to Alteration in Endocrine : Alteration in Endocrine Function/new 02/15/2023 12:00 EDT Alteration in Endocrine Related to Diabetes Goals & Outcomes, Endocrine Blood glucose levels will stabilize during hospitalization, Resolved problem, Goals/Outcomes met Interventions, Endocrine Resolved problem, Interventions no longer in effect Goals/Interventions, Endocrine Yes Endocrine, Problem Start 02/14/2023 21:37 Reviewed Plan with, Endocrine Patient Patient Progression, Endocrine Resolved problem Endocrine, Problem Resolved 02/15/2023 12:40 . Narrative/Incidental A&Ox3, ambulating steadily with walker, denies pain, denies sob, Tolerating diet, took meds as prescribed, Bed in lowest, locked position with call jimenez in reach. See MAR and biophysical for fullassessment. Patient discharging today, verbalizes understanding of discharge instructions, all questions answered, IV removed tip intact. Left unit in w/c via transport. . Discharge Information Case Management Discharge Plan : Case Management Discharge Plan Data 02/15/2023 13:40 EDT Discharge Level of Care at Discharge Home/Shelter/Foster Care 02/11/2023 17:20 EDT Discharge Level of Care at Discharge Home/Shelter/Foster Care Rehabilitation Discharge : Rehab Discharge Index 02/14/2023 14:12 EDT Full chart review completed Yes Hospital course Hospital course * Shantal Garcia: PERFORM, SIGN, VERIFY Event Display: Progress Note Hospital Authored Date: [id number] Patient: SOREN BECKHAM Age: 82 years Sex: Male : 1940 Associated Diagnoses: None Author: Shantal Garcia Findings Problem Related to Alteration in Endocrine : Alteration in Endocrine Function/new. Evaluation Patient's blood sugar 355, provider notified, and insulin coverage administered (see MAR). . Discharge Information Case Management Discharge Plan : Case Management Discharge Plan Data 02/11/2023 17:20 EDT Discharge Level of Care at Discharge Home/Shelter/Foster Care * Demarco GUNDERSON, Sidra Rocha: PERFORM Event Display: Progress Note Hospital Authored Date: [id number] Patient: ??SOREN BECKHAM ? Age:??82 Years?Sex:??Male?:??1940?? Subjective Seen and examined today ?? Cardiology input noted and appreciated AICD interrogated, no events that can explain syncope Review of Systems Constitutional: No fever or chills. ENT: No sore throat or nasal congestion. Respiratory: No shortness of breath or cough??. Cardiovascular: No chest pain or??palpitation. Gastrointestinal: No nausea, vomiting or diarrhea. Skin: No rash or lesion Neurology: No speech problem no vision problem no focal weakness, no dizziness. Psychiatric: Cooperative, normal mood and affect Objective ?? Physical Exam Awake, alert, oriented Lungs: Clear to auscultation bilateral, no wheezing no rales Heart: Regular rate and rhythm, no murmur, no rub or gallop Abdomen: Soft, nontender, nondistended; Bowel sounds present Extremity: No edema cyanosis clubbing Neurological: No focal deficit Psychiatric: Normal mood and affect Assessment/Plan Assessment:??82 y/o male with h/o severe CAD s/p stents, HFrEF 25%, s/p AICD in place, atrial flutter, HTN, HLD, type 2 diabetes mellitus, alcohol use disorder came to the ED after an episode of witnessed syncopal event at home. Initially in the ED patient remains afebrile, HR 59, RR 16, BP 110/67,saturation 96% on room air. No leukocytosis WBC 4.6, Hgb 11.9, PLT 173, electrolytes normal, BUN/creatinine 15/1, blood glucose 285, INR 1.3, mag 1.6, LFTs normal, troponins x2 negative, C-19 negative, UA negative, CT head with no acute findings, chest x-ray with no acute findings, echo was recently done on 02/09/2023 with normal left ventricular size with mild concentric left ventricle hypertrophy and reduced ejection fraction of 25 to 30%. Patient received around 250 cc of fluid bolus and admitted to observation medicine service for further management ?? Syncope -seizures vs vasovagal vs cardiac syncope Concern for AICD shock ??Recent echocardiogram done with EF of 25 to 30%, found to have hypokinesis of the septum and apex ??CT head with no acute findings ??CTA head and neck report in process, please follow Neurology evaluated and does not think seizure; no need for AED; recommended out pt EEG ?? Mg was 1.4 which was repleted Cardiology consulted; s/p AICD interrogation, no arrhythmia, did not??go off Orthostat negative No further cardiac w/up now, cleared for discharge ?? Awaiting fro PT eval ?? Appreciated Cardiology input ? Coronary artery disease HTN HLD Atrial flutter ? Plan: ?? Will continue ASA, statin, coreg, Lisinopril Will continue Eliquis 5 mg twice daily ? Diabetes mellitus???lispro sliding scale. ?? Hold home Metformin and glipizide ? Code Status???DNR ? Diet???diabetic diet ? DVT prophylaxis???patient already on Eliquis, VTE guidelines done ?? Disp: Likely home pending PT eval vs rehab ?? Updated family at bedside Cardiology also spoke with family at bedside ? Discharge Planning:? Note * Mona Flower RN: PERFORM Event Display: Discharge/Transfer Note Hospital Authored Date: [id number] Nursing Discharge Note Entered On: 02/15/2023 13:41 EDT Performed On: 02/15/2023 13:40 EDT by Mona Flower RN Nursing Discharge Note 2 Discharge Time : 02/15/2023 12:34 EDT Discharge Level of Care at Discharge : Home/Shelter/Foster Care Patient Left Unit Via : Wheelchair Patient Accompanied Off Unit with : Responsible adult DC Instructions Provided & Signed by Pt : Yes Patient Understands D/C Instructions : Yes Verbalized Understanding of D/C Plan By : Family, Patient Patient Instructions Discharge Signed : Yes Did Pt have Specialty Bed or Wound Vac : No Mona Flower RN - 02/15/2023 13:40 EDT * Demarco GUNDERSON, Sidra Rocha: PERFORM Event Display: Discharge/Transfer Note Hospital Authored Date: [id number] Patient: ??SOREN BECKHAM ? Age:??82 Years?Sex:??Male?:??1940?? Patient Information Discharge Location: [facility] Admit Date/Time: 02/12/23 13:28 Discharge Disposition Discharge Disposition: ?? Discharge Diagnosis ??Syncope Atrial fibrillation (I48.91) Diabetes mellitus (E11.9) Hyperlipidemia (E78.5) Hypertension (I10) _ Discharge Medications apixaban (Eliquis 5 mg oral tablet)?1?tab(s)?5?Milligram?By Mouth?2 times a day?TAKE 1 TABLET BY MOUTH TWICE A DAY Aspirin (Ascriptin Enteric)?81?Milligram?By Mouth?Daily Atorvastatin (atorvastatin 40 mg oral tablet)?1?tab(s)?40?Milligram?By Mouth?Daily Carvedilol (carvedilol 25 mg oral tablet)?25?Milligram?1?tablet?By Mouth?2 times a day GlipiZIDE (glipiZIDE 10 mg oral tablet)?1?tab(s)?10?Milligram?By Mouth?2 times a day Lisinopril (lisinopril 20 mg oral tablet)?20?Milligram?1?tablet?By Mouth?Daily Magnesium Oxide (magnesium oxide 400 mg oral tablet)?1?tab(s)?400?Milligram?By Mouth?Daily?for 30?Days Metformin (metFORMIN 500 mg oral tablet)?2?tab(s)?1,000?Milligram?By Mouth?2 times a day Nitroglycerin (Nitrostat 0.4 mg sublingual tablet)?1?tab(s)?0.4?Milligram?Sublingual?Every 5 minutes?as needed?Chest Pain?for 30?Days ? Medications Started Mag oxide Allergies Allergies ?(Active and Proposed Allergies Only) NKA? (Severity: Unknown severity, Onset: Unknown) ? Future Appointments Wednesday 11:30 AM EDT ?? With: Annette GUNDERSON, Ria Gutierrez Where: [facility] [address] [place] [address]- Status: Pending 2022 8:40 AM EDT ?? With: Troy GUNDERSON, [facility] Where: [facility] [address] [place] [address]- Status: Pending Hospital Course 82 y/o male with h/o severe CAD s/p stents, HFrEF 25%, s/p AICD in place, atrial flutter, HTN, HLD,type 2 diabetes mellitus, alcohol use disorder came to the ED after an episode of witnessed syncopal event at home. Initially in the ED patient remains afebrile, HR 59, RR 16, BP 110/67, saturation 96% on room air. No leukocytosis WBC 4.6, Hgb 11.9, PLT 173, electrolytes normal, BUN/creatinine 15/1, blood glucose 285, INR 1.3, mag 1.6, LFTs normal, troponins x2 negative, C-19 negative, UA negative, CT head with no acute findings, chest x-ray with no acute findings, echo was recently done on 02/09/2023 with normal left ventricular size with mild concentric left ventricle hypertrophy and reducedejection fraction of 25 to 30%. Patient received around 250 cc of fluid bolus and admitted to observation medicine service for further management ?? Syncope -seizures vs vasovagal vs cardiac syncope Concern for AICD shock ??Recent echocardiogram done with EF of 25 to 30%, found to have hypokinesis of the septum and apex ??CT head with no acute findings ??CTA head and neck report in process, please follow Neurology evaluated and does not think seizure; no need for AED; recommended out pt EEG Mg was 1.4 which was repleted ?? Cardiology consulted; s/p AICD interrogation, no arrhythmia, did not go off Orthostat negative No further cardiac w/up now, cleared for discharge ?? He is being discharge home in a stable condition ? Coronary artery disease HTN HLD Atrial flutter ? Plan: Will continue ASA, statin, coreg, Lisinopril Will continue Eliquis 5 mg twice daily Given his HbA1c 12.0, would be better on insulin; will defer to PCP ? Diabetes mellitus???lispro sliding scale. Will resume home meds including??Metformin and glipizide ? Code Status???DNR ? Diet???diabetic diet ? Objective Vital Signs?? Temperature: 98.1 DegF (02/15/23 07:00:00) Temperature Route: Oral (02/15/23 07:00:00) Pulse Rate: 63 bpm (02/15/23 07:00:00) Pulse Rate, Lyin bpm (02/14/23 11:53:00) Systolic Blood Pressure, Lyin mm Hg (02/14/23 11:53:00) Diastolic Blood Pressure, Lyin mm Hg (02/14/23 11:53:00) Pulse Rate, Sittin bpm (02/14/23 11:53:00) Systolic Blood Pressure, Sittin mm Hg (02/14/23 11:53:00) Diastolic Blood Pressure, Sittin mm Hg (02/14/23 11:53:00) Pulse Rate, Standin bpm (02/14/23 11:53:00) Systolic Blood Pressure, Standin mm Hg (02/14/23 11:53:00) Diastolic Blood Pressure, Standin mm Hg (02/14/23 11:53:00) Respiratory Rate: 18 br/min (02/15/23 07:00:00) Systolic Blood Pressure: 121 mm Hg (02/15/23 07:00:00) Diastolic Blood Pressure: 68 mm Hg (02/15/23 07:00:00) Blood pressure sites: Arm, left (02/15/23 07:00:00) Mean Arterial Pressure: 86 mm Hg (02/14/23 15:49:00) Pulse Pressure: 62 mm Hg (02/14/23 15:49:00) Oxygen Saturation: 94 % (02/15/23 07:00:00) Mode of Delivery (Oxygen): Room air (02/15/23 07:00:00) Early Warning Score: 2 (02/15/23 07:38:03) ? . Physical Exam Awake, alert, oriented Lungs: Clear to auscultation bilateral, no wheezing no rales Heart: Regular rate and rhythm, no murmur, no rub or gallop Abdomen: Soft, nontender, nondistended; Bowel sounds present Extremity: No edema cyanosis clubbing Neurological: No focal deficit Psychiatric: Normal mood and affect Pending Results COVID-19 (Novel Coronavirus), Rapid PCR ordered on 02/12/2023 Follow-Up Appointments Added Follow Up ?Time Frame ?Comments Emeka GUNDERSON, Garret Carrasquillo?2 to 5 weeks Yessenia Simmons MD?1 week Home Health Face to Face ^[facility] Results Discharge Labs BLOOD COUNT & DIFF WBC 5.4 k/mm3 ()?? 02/14/2023 05:16 RBC 3.76 m/mm3 (Low)?? 02/14/2023 05:16 Hgb 11.3 Gm/dL (Low)?? 02/14/2023 05:16 Hct 35.2 % (Low)?? 02/14/2023 05:16 MCV 93.6 femtoliters ()?? 02/14/2023 05:16 MCH 30.1 pg ()?? 02/14/2023 05:16 MCHC 32.1 g/dL (Low)?? 02/14/2023 05:16 Platelet Count 177 k/mm3 ()?? 02/14/2023 05:16 RDW-SD 42.8 femtoliters ()?? 02/14/2023 05:16 MPV 10.0 femtoliters ()?? 02/14/2023 05:16 Nucleated RBC (Automated) 0.0 #/100 WBC'S ()?? 02/14/2023 05:16 Abs. NRBC 0.0 k/mm3 ()?? 02/14/2023 05:16 Abs. Neut 3.6 k/mm3 ()?? 02/14/2023 05:16 Abs. Lymph 1.1 k/mm3 ()?? 02/14/2023 05:16 Abs. [place] 0.6 k/mm3 ()?? 02/14/2023 05:16 Abs. Eo 0.1 k/mm3 ()?? 02/14/2023 05:16 Abs. Baso 0.0 k/mm3 ()?? 02/14/2023 05:16 Neut % 67.1 % ()?? 02/14/2023 05:16 Lymph % 20.0 % ()?? 02/14/2023 05:16 [place] % 10.4 % ()?? 02/14/2023 05:16 Eos % 1.5 % ()?? 02/14/2023 05:16 Baso % 0.6 % ()?? 02/14/2023 05:16 Imm Gran 0.4 % ()?? 02/14/2023 05:16 Abs. Imm Gran 0.0 k/mm3 ()?? 02/14/2023 05:16 ?? CARDIAC Nt-Probnp 358 pg/mL ()?? 02/12/2023 14:14 High Sensitivity Troponin (HSTnT) 22 ng/L (High)?? 02/12/2023 17:00 ?? CHEM GENERAL Sodium 138 mmol/L ()?? 02/15/2023 02:06 Potassium 4.1 mmol/L ()?? 02/15/2023 02:06 Chloride 104 mmol/L ()?? 02/15/2023 02:06 Bicarbonate Level 26 mmol/L ()?? 02/15/2023 02:06 Anion Gap 8 ()?? 02/15/2023 02:06 Glucose Level 125 mg/dL (High)?? 02/15/2023 02:06 Glucose, POC 169 mg/dL (High)?? 02/15/2023 07:26 BUN 25 mg/dL (High)?? 02/15/2023 02:06 Creatinine-Blood 1.1 mg/dL ()?? 02/15/2023 02:06 Estimated GFR Creatinine 70 ML/MIN/1.73 M2 ()?? 02/15/2023 02:06 Calcium 8.8 mg/dL ()?? 02/15/2023 02:06 Phosphorus 2.7 mg/dL ()?? 02/13/2023 07:27 Magnesium 1.9 mg/dL ()?? 02/15/2023 02:06 Protein, Total 6.1 Gm/dL (Low)?? 02/12/2023 14:14 Albumin 3.8 Gm/dL ()?? 02/12/2023 14:14 AG Ratio 1.7 ()?? 02/12/2023 14:14 Alkaline Phosphatase 102 units/L ()?? 02/12/2023 14:14 AST (SGOT) 21 units/L ()?? 02/12/2023 14:14 ALT (SGPT) 18 units/L ()?? 02/12/2023 14:14 Bilirubin, Total 0.6 mg/dL ()?? 02/12/2023 14:14 ?? COAG INR 1.3 (High)?? 02/12/2023 14:14 Protime (PT) 13.1 seconds (High)?? 02/12/2023 14:14 ?? UA/URINALYSIS Appear/Color, Urine LIGHT YELLOW ()?? 02/12/2023 17:57 Specific [place], Urine 1.035 (High)?? 02/12/2023 17:57 pH, Urine 6.0 ()?? 02/12/2023 17:57 Albumin, Urine NEGATIVE ()?? 02/12/2023 17:57 Glucose, Urine 4+ (Abnormal)?? 02/12/2023 17:57 Ketones, Urine NEGATIVE ()?? 02/12/2023 17:57 Bilirubin, Urine NEGATIVE ()?? 02/12/2023 17:57 Hemoglobin, Urine NEGATIVE ()?? 02/12/2023 17:57 Nitrite, Urine NEGATIVE ()?? 02/12/2023 17:57 Leukocyte, Urine NEGATIVE ()?? 02/12/2023 17:57 Urobilinogen NORMAL mg/dL ()?? 02/12/2023 17:57 WBC's, Urine <1 /HPF ()?? 02/12/2023 17:57 RBC's, Urine 1 /HPF ()?? 02/12/2023 17:57 Hold Urine Culture Testing available 48 hours from time of collection. ()?? 02/12/2023 17:57 ?? URINE OTHER Est Creatinine Clearance 40.72 mL/min ()?? 02/15/2023 03:06 ? VIROLOGY COVID-19 by RT-PCR NEGATIVE ()?? 02/12/2023 14:16 ? Microbiology ?? COVID-19 (Novel Coronavirus), Rapid PCR?? Completed?? Source: Nasal Body Site: Nose Collected Dt/Tm: 02/12/2023 14:13 Last Updated Dt/Tm: 02/12/2023 16:02 ? 25 minutes spent on discharge * Mona Flower RN: PERFORM Event Display: Patient Education/Instruction Authored Date: [id number] Inpatient Adult Discharge Instructions [address] [address] Name: SOREN BECKHAM : 1940 Visit: 02/12/2023 13:28:00 Current Date: 02/15/2023 11:40 Account: [id number] Inpatient Adult Discharge Instructions We would like [...] and their families. Surveys are administered by [employer] ?? If further treatment with your primary care physician or another doctor is recommended, it is important for you to keep the appointment. Call your primary care physician or return to the Emergency Department immediately if your condition worsens, fails to improve, or new symptoms develop. If you need to find a doctor, you can call [facility] [employer] for a referral at [phone] or toll free at [phone] ([phone]) or log in to [email or web address].. ?? You can view and manage your care through the patient portal or by using a health care asif of your choosing. [employer] [facility] is a website that allows you to securely view your medical information including your hospital discharge summary, office visit summaries, medications and follow-up visits. You can also request appointments, renew medications, and request access to your medical information using a health care asif of your choosing, or just ask a question. You can enroll at [email or web address] or register during your next office visit. You have been discharged from [facility], Patient Care Unit: S1. If you have any questions regarding these instructions after you leave, please call us and we will be happy to assist you. [facility] Your Care Team Attending Physician Sidra Pal MD Consulting Providers Keyla GUNDERSON, Timmy; Herrera Beasley MD Discharging Providers Demarco GUNDERSON, Sidra Rocha Reason for Your Visit coming from home. was outside with when she noticed he went limp. saw a jolt in his chest nearhis defibrilator. pt unresponsive when EMS arrived but now awake. Pt stated he feels like he is going to , [id number] Your Diagnosis General medical Tests Performed Below is a partial list of the tests performed during your hospitalization. You may have had other tests and procedures not included in this list. Please discuss all test results with your provider. Basic Metabolic Panel BUN CBC w/ Differential Comprehensive Metabolic Panel Creatinine Electrolytes Glucose Level GLUCOSE POC High??Sensitivity??Troponin T INR Magnesium Level Phosphorus Level ProBNP Urinalysis w/hold for Urine Culture CT Angio Head CT Angio Neck CT Head/Brain W/O Contrast XR Chest 2 Views Frontal and Lat Primary Care Provider Yessenia Simmons MD Advance Directive . Discharge Vitals Temperature: 98.1 DegF Height: 164.03 cm Pulse Rate: 68 bpm Weight: 55.6 kg Respiratory Rate: 18 br/min Body Mass Index: 20.66 kg/m2 Systolic Blood Pressure: 134 mm Hg Body surface area: 1.59 Diastolic Blood Pressure:??96 mm Hg??High ?? Oxygen Saturation: 94 % ?? Studies Pending All tests and labs ordered during this hospital stay have been completed unless listed below. Please discuss all pending results with your provider listed above in these instructions. ?? COVID-19 (Novel Coronavirus), Rapid PCR What to do next Instructions From Your Doctor Discharge Orders Scheduled Follow-Up Appointments Wednesday 11:30 AM EDT ?? With: Ria Bryant MD Where: [facility] [address] [place] [id number]- Status: Pending 2022 8:40 AM EDT ?? With: Yessenia Simmons MD Where: [facility] [address] [place] [address]- Status: Pending You Need to Schedule the Following Appointments Follow Up with??Emeka GUNDERSON, Garret Carrasquillo When:??Within 2 to 5 weeks Where: [address] [facility] [address] [facility] [place] [address]- Follow Up with??Yessenia Simmons MD When:??Within 1 week Why: you need an out patient EEG to be arranged by your PCP office Where: ?? Discharge Medications SOREN BECKHAM :1940 Visit Date:02/12/2023 Medications: Please continue your medications until treatment is completed or stopped by your provider. Medications not listed below should be discontinued. Discuss any questions related to medications with your provider. What How Much When Instructions Next Dose New Magnesium Oxide (magnesium oxide 400 mg oral tablet) 1 tab(s) Oral Daily Duration: 30 Days Pickup at [facility]/pharmacy #[id number] Tomorrow Morning 8am Unchanged apixaban (Eliquis 5 mg oral tablet) 1 tab(s) Oral Twice a day TAKE 1 TABLET BY MOUTH TWICE A DAY ?? tonight 9pm Unchanged Aspirin (Ascriptin Enteric) 81 Milligram Oral Daily Tomorrow Morning 8am Unchanged Atorvastatin (atorvastatin 40 mg oral tablet) 1 tab(s) Oral Daily Tomorrow Morning 8am Unchanged Carvedilol (carvedilol 25 mg oral tablet) 1 tab(s) Oral Twice a day tonight 9pm Unchanged GlipiZIDE (glipiZIDE 10 mg oral tablet) 1 tab(s) Oral Twice a day tonight 9pm Unchanged Lisinopril (lisinopril 20 mg oral tablet) 1 tab(s) Oral Daily Tomorrow Morning 8am Unchanged Metformin (metFORMIN 500 mg oral tablet) 2 tab(s) Oral Twice a day Resume home regimen Unchanged Nitroglycerin (Nitrostat 0.4 mg sublingual tablet) 1 tab(s) Sublingual Every 5 minutes as needed for Chest Pain Duration: 30 Days as needed Pharmacy Information [facility]/pharmacy #[id number]: [address] [place] [phone] Test Results Below is a partial list of the most recent Laboratory test results done prior to this discharge. You may have had other tests and procedures not included in this list. Please discuss all test resultswith your provider. Est Creatinine Clearance - 40.72 mL/min (02/15/2023) Basic Metabolic Panel (02/15/2023) ???Sodium - 138 mmol/L???Potassium - 4.1 mmol/L???Chloride - 104 mmol/L???Bicarbonate Level - 26 mmol/L???Anion Gap - 8???Glucose Level - 125 mg/dL???BUN - 25 mg/dL???Creatinine-Blood - 1.1 mg/dL???Estimated GFR Creatinine - 70 ML/MIN/1.73 M2???Calcium - 8.8 mg/dL BUN (02/14/2023) ???BUN - 22 mg/dL CBC w/ Differential (02/14/2023) ???WBC - 5.4 k/mm3???RBC - 3.76 m/mm3???Hgb - 11.3 Gm/dL???Hct - 35.2 %???MCV - 93.6 femtoliters???MCH - 30.1 pg???MCHC - 32.1 g/dL???Platelet Count - 177 k/mm3???RDW-SD - 42.8 femtoliters???MPV - 10.0 femtoliters???Nucleated RBC (Automated) - 0.0 #/100 WBC'S???Abs. NRBC - 0.0 k/mm3???Abs. Neut - 3.6 k/mm3???Abs. Lymph - 1.1 k/mm3???Abs. [place] - 0.6 k/mm3???Abs. Eo - 0.1 k/mm3???Abs. Baso - 0.0 k/mm3???Neut % - 67.1 %???Lymph % - 20.0 %???[place] % - 10.4 %???Eos % - 1.5 %???Baso % - 0.6 %???Imm Gran - 0.4 %???Abs. Imm Gran - 0.0 k/mm3 Comprehensive Metabolic Panel (02/12/2023) ???Sodium - 137 mmol/L???Potassium - 5.0 mmol/L???Chloride - 102 mmol/L???Bicarbonate Level - 23 mmol/L???Anion Gap - 12???Glucose Level - 394 mg/dL???BUN - 15 mg/dL???Creatinine-Blood - 1.0 mg/dL???Estimated GFR Creatinine - 74 ML/MIN/1.73 M2???Calcium - 9.1 mg/dL???Protein, Total - 6.1 Gm/dL???Alb umin - 3.8 Gm/dL???AG Ratio - 1.7???Alkaline Phosphatase - 102 units/L???AST (SGOT) - 21 units/L???ALT (SGPT) - 18 units/L???Bilirubin, Total - 0.6 mg/dL Creatinine (02/14/2023) ???Creatinine-Blood - 1.3 mg/dL???Estimated GFR Creatinine - 55 ML/MIN/1.73 M2 Electrolytes (02/14/2023) ???Sodium - 136 mmol/L???Potassium - 5.0 mmol/L???Chloride - 101 mmol/L???Bicarbonate Level - 28 mmol/L???Anion Gap - 7 Glucose Level (02/14/2023) ???Glucose Level - 388 mg/dL GLUCOSE POC (02/15/2023) ???Glucose, POC - 306 mg/dL High??Sensitivity??Troponin T (02/12/2023) ???High Sensitivity Troponin (HSTnT) - 22 ng/L INR (02/12/2023) ???INR - 1.3???Protime (PT) - 13.1 seconds Magnesium Level (02/15/2023) ???Magnesium - 1.9 mg/dL Phosphorus Level (02/13/2023) ???Phosphorus - 2.7 mg/dL ProBNP (02/12/2023) ???Nt-Probnp - 358 pg/mL Urinalysis w/hold for Urine Culture (02/12/2023) ???Appear/Color, Urine - LIGHT YELLOW???Specific [place], Urine - 1.035???pH, Urine - 6.0???Albumin, Urine - NEGATIVE???Glucose, Urine - 4+???Ketones, Urine - NEGATIVE???Bilirubin, Urine - NEGATIVE???Hemoglobin, Urine - NEGATIVE???Nitrite, Urine - NEGATIVE???Leukocyte, Urine - NEGATIVE???Urobilinoge n - NORMAL? ?WBC's, Urine - <1 /HPF? ?RBC's, Urine - 1 /HPF? ?Hold Urine Culture - Testing available 48 hours from time of [...] Belongings I fully understand and agree that [facility] accepts no responsibility for all my [...] to send valuables and belongings home. ?? No Valuables/Belongings: No valuables/belongings present Review of Valuable and Belonging List: With patient, With witness Date for Pt to Sign Valuables/Belongings: 02/12/23 22:36:00 ?? Other Discharge Information ? Pulmonary Rehab Status?? Pulmonary Rehab Discharge Status?? Respiratory Rate: 18 br/min ? Common Emergency Awareness Tips IS [...] are strongly encouraged to quit. Please call [facility] [employer] Link at [phone] or [phone] ([phone]) or log in to [email or web address] for referrals to smoking cessation programs. ?? 331 Suicide & Crisis Lifeline is available 12/04 if you or someone you know needs to find a reason to keep living. By calling 191 you'll be connected to a skilled, trained counselor at a crisis center in your area. INPATIENT DISCHARGE INSTRUCTIONS SIGNATURE PAGE KEVIN BECKHAMELINO Location:[facility] Registration Date and Time:02/12/2023 13:28 EDT Primary Care Physician: Emily Simmons MD, Attending Physician: Sidra Pal MD, I SOREN BECKHAM, have received the above patient education materials/instructions and have verbalized understanding. If ambulance or transport services are being used I further acknowledge being given a choice of service. ?? If you need to contact me, please call me at this number: . Patient/Heat Treating Operator Name: Patient/Heat Treating Operator Signature: Relationship to Patient: Witness Name/Signature: Date: Laboratory * [facility] , CIS S: TRANSCRIBE Saulo GUNDERSON, Dario T: SIGN Caio GUNDERSON, Alexei V: VERIFY Event Display: Result: Authored Date: [id number] Chest 2 Views Frontal and Lat Hx of Present Illness: per daughter - pt was sitting in a chair while talking with fam. Daughter says pt was c o dizziness, then became unresponsive eyes rolled to back of head stopped breathing paleand became pale. Did not fall out of chair. Called EMS. Reason: Shortness of Breath. Clinical Question(s): CHF. COMPARISON: 02/08/2023, 11/01/2019. FINDINGS: LINES AND TUBES: Dual-lead left subclavian pacer/AICD wires are intact. LUNGS AND PLEURA: Clear lungs. Normal pulmonary vascularity. No pleural effusion. No pneumothorax. HEART, MEDIASTINUM AND JAIME: Heart is normal in size. Normal mediastinal and hilar contour. BONES AND SOFT TISSUES: No acute abnormality. Status post median sternotomy. IMPRESSION: No evidence of acute abnormality. No interval change. I have personally reviewed the images and I agree with this report. WSN: [id number] Ordering Physician: Daya Trent Dictated By: Dario Vernon MD Dictated Date/Time: 02/12/23 4:05 pm Reviewed By: Alexei Kearney MD, V Signed By: Alexei Kearney MD, V Signed Date/Time: 02/12/23 4:10 pm Transcribed By: LEOPOLDO Transcribed Date/Time: 02/12/23 3:[address] Head WO contrast * [facility] , CIS S: TRANSCRIBE Garret Hanley MD J: VERIFY David Higuera MD: SIGN Event Display: Result: Authored Date: [id number] CT Head/Brain W/O Contrast INDICATION: per daughter - pt was sitting in a chair while talking with fam. Daughter says pt was co dizziness, then became unresponsive eyes rolled to back of head stopped breathing pale and becamepale. Did not fall out of chair. Called EMS; Reason: Neuro deficit, acute, stroke suspected; Clinical Question(s): Hematoma Infarction; TECHNIQUE: Noncontrast head CT using axial technique and reconstructed in axial and coronal planes.Iterative reconstruction techniques are used to optimize dose and image quality. CTDIvol Body: 19.20 mGy, DLP Body: 483 mGy*cm. CTDIvol Head: 45.10 mGy, DLP Head: 773 mGy*cm. COMPARISON: CT head and neck angiogram performed concurrently. FINDINGS: Fishing Tool Technician Oil Well view findings, lines and tubes: None. BRAIN AND EXTRA-AXIAL SPACES: No parenchymal hemorrhage, midline shift, or mass effect. Albert-white matter differentiation is wellpreserved. No acute infarct. Negative insular ribbon sign. Atherosclerotic vascular calcification of the carotid arteries but negative hyperdense vessel sign. Moderate prominence of the ventricles and sulci consistent with parenchymal volume loss. Mild low-density white matter changes. No subarachnoid hemorrhage. No subdural or epidural collection. CALVARIUM, SKULL BASE, AND SOFT TISSUES: No fractures or suspicious bony lesions. The paranasal sinuses and mastoid air cells are clear. Visualized orbits and globes are intact. The extracranial soft tissues are unremarkable. IMPRESSION: No acute intracranial pathology. I have personally reviewed the images and I agree with this report. WSN: [id number] Ordering Physician: Jacki Longoria Dictated By: David Higuera MD Dictated Date/Time: 02/12/23 5:46 pm Reviewed By: Garret Hanley MD Signed By: Garret Hanley MD Signed Date/Time: 02/12/23 5:51 pm Transcribed By: LEOPOLDO Transcribed Date/Time: 02/12/23 5:34 pm CTA Neck vessels W contrast IV * [facility] , CIS S: TRANSCRIBE Chaim Roman MD: VERIFY Event Display: Result: Authored Date: [id number] CT Angio Head, CT Angio Neck Hx of Present Illness: per daughter - pt was sitting in a chair while talking with fam. Daughter says pt was c o dizziness, then became unresponsive eyes rolled to back of head stopped breathing paleand became pale. Did not fall out of chair. Called EMS; Reason: Other:; Neuro deficit, acute, stroke suspected; Clinical Question(s): Other:; Hematoma Aneurysm; Order Comment: / Other: TECHNIQUE: CT angiogram of the head and neck was performed after bolus administration of intravenous contrast. 100 mL of Omnipaque 300 was administered intravenously. Coronal and sagittal MIP reformatted images were obtained. Additional 3-D images were created on a separate workstation under concurrent supervision by the attending radiologist. All stenoses are measured using NASCET criteria. Weight-based protocol using automatic tube modulation was used to optimize exposure parameters. RADIATION DOSE PARAMETERS: CTDIvol Body: 19.20 mGy, DLP Body: 483 mGy*cm. CTDIvol Head: 45.10 mGy, DLP Head: 773 mGy*cm. COMPARISON: Noncontrast CT head performed concurrently. FINDINGS: CTA OF THE NECK: Arch: There is a three vessel aortic arch. There is mild atherosclerotic plaque of the aortic arch,but origins of the supra aortic vessels are patent. Right carotid system: A moderate amount of calcified plaque is present at the bifurcation and in the bulb but no stenosis is produced. Left carotid system: There is minor calcification at the bifurcation without stenosis. There is a co-dominant vertebral artery system. Right vertebral: There is a potential 50% stenosis at the origin related to calcified plaque. The remainder of the vessel is normal. Left vertebral: There is less than 50% stenosis of the proximal vessel just distal to its origin. The remainder of the vessel is normal. Other: Soft tissues and bones: No evidence of lymphadenopathy or mass. A right sided pacemaker is noted. CTA OF THE HEAD: Anterior circulation: There is calcification of the intracranial internal carotid arteries with bilateral 50% stenoses. The anterior and middle cerebral arteries are normal. Posterior circulation: There is calcification of the intracranial right vertebral artery with a 50-75% stenosis produced. The left vertebral artery is normal. The basilar, superior cerebellar and posterior cerebral arteries are patent. There is mild narrowing of the origin of the right posterior cerebral artery and of the P2 segment of the left posterior cerebral artery.. Veins: Major dural venous sinuses are patent. Other: Soft tissues and bones: No midline shift or effacement of the basal cisterns. No space-occupying hemorrhage. No territorial loss of albert-white matter differentiation. Deep white matter hypoattenuation is consistent with chronic ischemia. IMPRESSION: 1. Probable less than 50% stenosis of the proximal left vertebral artery. 2. Probable 50% stenosis of the origin of the right vertebral artery. There is additional 50-75% stenosis of the intracranial right vertebral artery. 3. No significant stenosis of either carotid artery is noted in the neck. There are approximately 50% stenoses of the intracranial internal carotid arteries. A similar preliminary report was provided by [facility]. WSN: [id number] Ordering Physician: Jacki Longoria Dictated By: Chaim Roman MD Dictated Date/Time: 02/13/23 1:31 pm Reviewed By: Chaim Roman MD Signed By: Chaim Roman MD Signed Date/Time: 02/13/23 1:31 pm Transcribed By: CSKatalina Transcribed Date/Time: 02/13/23 1:24 pm CTA Head vessels W contrast IV * [facility] , CIS S: TRANSCRIBE Chaim Roman MD: VERIFY Event Display: Result: Authored Date: [id number] CT Angio Head, CT Angio Neck Hx of Present Illness: per daughter - pt was sitting in a chair while talking with fam. Daughter says pt was c o dizziness, then became unresponsive eyes rolled to back of head stopped breathing paleand became pale. Did not fall out of chair. Called EMS; Reason: Other:; Neuro deficit, acute, stroke suspected; Clinical Question(s): Other:; Hematoma Aneurysm; Order Comment: / Other: TECHNIQUE: CT angiogram of the head and neck was performed after bolus administration of intravenous contrast. 100 mL of Omnipaque 300 was administered intravenously. Coronal and sagittal MIP reformatted images were obtained. Additional 3-D images were created on a separate workstation under concurrent supervision by the attending radiologist. All stenoses are measured using NASCET criteria. Weight-based protocol using automatic tube modulation was used to optimize exposure parameters. RADIATION DOSE PARAMETERS: CTDIvol Body: 19.20 mGy, DLP Body: 483 mGy*cm. CTDIvol Head: 45.10 mGy, DLP Head: 773 mGy*cm. COMPARISON: Noncontrast CT head performed concurrently. FINDINGS: CTA OF THE NECK: Arch: There is a three vessel aortic arch. There is mild atherosclerotic plaque of the aortic arch,but origins of the supra aortic vessels are patent. Right carotid system: A moderate amount of calcified plaque is present at the bifurcation and in the bulb but no stenosis is produced. Left carotid system: There is minor calcification at the bifurcation without stenosis. There is a co-dominant vertebral artery system. Right vertebral: There is a potential 50% stenosis at the origin related to calcified plaque. The remainder of the vessel is normal. Left vertebral: There is less than 50% stenosis of the proximal vessel just distal to its origin. The remainder of the vessel is normal. Other: Soft tissues and bones: No evidence of lymphadenopathy or mass. A right sided pacemaker is noted. CTA OF THE HEAD: Anterior circulation: There is calcification of the intracranial internal carotid arteries with bilateral 50% stenoses. The anterior and middle cerebral arteries are normal. Posterior circulation: There is calcification of the intracranial right vertebral artery with a 50-75% stenosis produced. The left vertebral artery is normal. The basilar, superior cerebellar and posterior cerebral arteries are patent. There is mild narrowing of the origin of the right posterior cerebral artery and of the P2 segment of the left posterior cerebral artery.. Veins: Major dural venous sinuses are patent. Other: Soft tissues and bones: No midline shift or effacement of the basal cisterns. No space-occupying hemorrhage. No territorial loss of albert-white matter differentiation. Deep white matter hypoattenuation is consistent with chronic ischemia. IMPRESSION: 1. Probable less than 50% stenosis of the proximal left vertebral artery. 2. Probable 50% stenosis of the origin of the right vertebral artery. There is additional 50-75% stenosis of the intracranial right vertebral artery. 3. No significant stenosis of either carotid artery is noted in the neck. There are approximately 50% stenoses of the intracranial internal carotid arteries. A similar preliminary report was provided by [facility]. WSN: [id number] Ordering Physician: Jacki Longoria Dictated By: Chaim Roman MD Dictated Date/Time: 02/13/23 1:31 pm Reviewed By: Chaim Roman MD Signed By: Chaim Roman MD Signed Date/Time: 02/13/23 1:31 pm Transcribed By: LEOPOLDO Transcribed Date/Time: 02/13/23 1:24 pm Patient Care team information Care Team Personnel Name: Barbi Rios RN Position: [facility] RN Member Role: Primary Care Nurse Name: Shantal Garcia Position: [facility] RN Member Role: Primary Care Nurse Name: Lisha Cardenas Position: [facility] RN Member Role: Primary Care Nurse Name: Aster Ellison RN Position: [facility] RN Member Role: Primary Care Nurse Name: Yesy Hylton RN Position: [facility] RN Member Role: Primary Care Nurse Name: Yessenia Simmons MD Position: [facility] Physician - Primary Care Member Role: PCP Address: Address: [address] [place] [address] Adult & [place] [address]- Name: Kati Gordon RN Position: [facility] RN Member Role: Primary Care [facility] Attending Position: [facility] ED Attendings Patient Name: Uzma Steven RN Position: [facility] ED RN W/OE and Tasks Member Role: Patient Care Provider Name: Jessica Dobson LPN Position: [facility] ED RN W/OE and Tasks Member Role: Patient Care Provider Name: Beni Miranda Position: [facility] ED [facility] Member Role: Salary And Wage Administrator Name: Patricia Van Position: [facility] ED [facility] Member Role: Salary And Wage Administrator Name: Lucero Perry MD Position: [facility] ED Medicine MD Member Role: ED Attending Physician Address: Address: [address] [place] [id number]- Care Team Related Persons Name: WELLINGTONRAY STEPHENLIA Address: home [address] [place] [address] Name: FANY CASE Address: home [address] [place] [id number]
--- OUTSIDE RECORDS SUMMARY | 2024-03-20 19:15 | XMS_ITS | Continuity of Care Document ---
Author Organization [facility] Address [address] [place] [address]- Care Team Providers Care Internet Project Manager Name Role Phone Troy GUNDERSON, Yessenia Primary Care Physician Encounter [facility] Date(s): 07/23/23 - 08/22/23 [facility] [address] [place], [place] [address] Allergies, Adverse Reactions, Alerts No Known Allergies Immunizations Given and Recorded Vaccine Date Status Refusal Reason influenza virus vaccine, inactivated 1 08/03/23 Gi ada influenza virus vaccine, inactivated 07/29/22 Give n influenza virus vaccine, inactivated 2 07/17/21 Gi ada tetanus-diphtheria toxoids (Td) 3 04/29/23 Given [id number] 12y+ bivalent booster vax 07/29/22 Given SARS-CoV-2 (COVID-19) mRNA-1273 vaccine 08/30/21 R ecorded SARS-CoV-2 (COVID-19) mRNA-1273 vaccine 01/04/21 R ecorded SARS-CoV-2 (COVID-19) mRNA-1273 vaccine 11/29/20 R ecorded zoster vaccine, inactivated 07/31/20 Recorded Pneumococcal Vaccine (oldterm) 11/29/07 Given 1Result Comment: [facility] [id number] 2Result Comment: Patient tollerated well 3Result Comment: [facility] [address]-1 Medications Ascriptin Enteric 81 mg, By Mouth, Daily, Refills 0, Tot. Refills 0, 11/16/07 18:08:35 Start Date: 11/16/07 Status: Ordered atorvastatin 40 mg oral tablet 1 tablet = 40 mg, By Mouth, Daily, # 90 tablet, 11 Refills, Maintenance, 10/06/22 9:10:00 EST, Tablet, [facility], Partial fill upon patient request if the prescription is for a schedule II opioid drug., 166, cm, 10/06/22 8:31:00 E... Start Date: 10/06/22 Status: Ordered carvedilol 25 mg oral tablet 25 mg, 1, tablet, By Mouth, 2 times a day, # 180 tablet, Refills 0, Tot. Refills 0, Maintenance, 02/10/23 8:50:00 EDT, Route to Pharmacy Electronically, [facility]/pharmacy #[id number], Partial fill upon patient request if the prescription is for a schedule II opi... Start Date: 02/10/23 Status: Ordered glipiZIDE 10 mg oral tablet 1 tablet = 10 mg, By Mouth, 2 times a day, # 180 tablet, 11 Refills, Maintenance, 09/22/22 16:41:00EST, Tablet, [facility], Partial fill upon patient request if the prescription is for a schedule II opioid drug., 166, cm, 03/30/22... Start Date: 09/22/22 Status: Ordered lisinopril 10 mg oral tablet 10 mg, 1, tablet, By Mouth, Daily, # 90 tablet, Refills 1, Tot. Refills 1, Maintenance, 07/28/23 17:39:00 EST, Route to Pharmacy Electronically, [facility]/pharmacy #[id number], did not tolerate 20 mg dose;, 164.03, cm, 04/29/23 9:31:00 EDT, Height, 55.6, kg, 052... Start Date: 07/28/23 Stop Date: 01/24/24 Status: Ordered metFORMIN 500 mg oral tablet 2 tablet = 1,000 mg, By Mouth, 2 times a day, # 120 tablet, 11 Refills, Maintenance, 10/06/22 9:08:00 EST, Tablet, [facility], Partial fill upon patient request if the prescription is for a schedule II opioid drug., 166, cm, ... Start Date: 10/06/22 Status: Ordered Nitrostat 0.4 mg sublingual tablet 1 tablet = 0.4 mg, Sublingual, Every 5 minutes, PRN Chest Pain, # 100 tablet, 0 Refills, Maintenance, 11/03/19 16:02:00 EST, Tablet, [id number], 166, cm, 11/03/19 15:28:00 EST, [...] Primary Care Member Role: PCP Address: Address: [address] [place] [address] Adult & Pediatric Medicine [place], [place] [address] Name: Kati Gordon RN Position: S RN Member Role: Primary Care Nurse Care Team Related Persons Name: MARK WELLINGTON Address: home [address] [place] [address] Name: FANY CASE Address: home [address] [place] [address]
--- OUTSIDE RECORDS SUMMARY | 2024-03-20 19:15 | XMS_ITS | Continuity of Care Document ---
Author Organization [facility] Address [address] [place] [address]- Care Team Providers Care Natural Remedy Consultant Name Role Phone Troy GUNDERSON, Yessenia Primary Care Physician Encounter [facility] Date(s): 02/05/21 - 03/07/21 [facility] [address] [place], [place] [address] Allergies, Adverse Reactions, Alerts Substance Reaction Severity [...] Refills, Maintenance, 01/21/21 9:18:00 EDT, Cream, [id number], Partial fill upon patient request [...] Refills, Maintenance, 11/11/20 15:58:00 EST, Tablet, [id number], Partial fill upon patient request if the prescription is for a schedule II opioid drug., 166, cm, 11/03/19 15:28:00 EST... Start Date: 11/11/20 Status: Ordered lisinopril 5 mg oral tablet 5 mg, 1, tablet, By Mouth, Daily, # 90 tablet, Refills 0, Tot. Refills 0, Maintenance, 01/21/21 9:25:00 EDT, Route to Pharmacy Electronically, [id number], Partial fill upon patient request if the prescription is for a schedule II opioid drug.... Start Date: 01/21/21 Status: Ordered metFORMIN 500 mg oral tablet 2 tablet = 1,000 mg, By Mouth, 2 times a day, # 120 tablet, 3 Refills, Maintenance, 11/11/20 15:58:00 EST, Tablet, [id number], Partial fill upon patient request if the prescription is for a schedule II opioid drug., 166, cm, 11/03/19 15:28:00... Start Date: 11/11/20 Status: Ordered Nitrostat 0.4 mg sublingual tablet 1 tablet = 0.4 mg, Sublingual, Every 5 minutes, PRN Chest Pain, # 100 tablet, 0 Refills, Maintenance, 11/03/19 16:02:00 EST, Tablet, [id number], 166, cm, 11/03/19 15:28:00 EST, Height, 65.3,kg, 11/01/19 22:48:00 EST, Dry Weight Start Date: 11/03/19 Stop Date: 12/03/19 Status: Ordered Problem List Condition Effective Dates Status Health Status Inform ant Diabetes mellitus(Confirmed) Active Ischemic cardiomyopathy(Confirmed) Active Hyperlipidemia(Confirmed) Active Social History Social History Type Response Smoking Status Never smoker entered on: 02/12/16 Sex
--- OUTSIDE RECORDS SUMMARY | 2024-03-20 19:15 | XMS_ITS | Continuity of Care Document ---
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 Start Date: 07/17/21 Status: Ordered carvedilol 12.5 mg oral tablet 12.5 mg, 1, tablet, By Mouth, 2 times a day, # 180 tablet, Refills 11, Tot. Refills 11, Maintenance, 07/17/21 10:05:00 EDT, Route to [facility], [id number], Partial fill upon patient request if the prescription is for a schedule... Start Date: 07/17/21 Status: Ordered ciclopirox 0.77% topical cream 1 application, Topically, 2 times a day, # 30 Gm, 0 Refills, Maintenance, 01/21/21 9:18:00 EDT, Cream, [facility], Partial fill upon patient request [...] 21:34:00 EDT, 06/26/21 21:34:00 EDT, [facility]t, [facility], Partial fill upon patient request if the prescript... Start Date: 06/26/21 Stop Date: 06/21/22 Status: Ordered Eliquis 5 mg oral tablet 1 tablet = 5 mg, By Mouth, 2 times a day, TAKE 1 TABLET BY MOUTH TWICE A DAY, # 180 tablet, 11 Refills, Maintenance, 06/21/22 21:34:00 EDT, [facility]t, [facility], Partial fill upon patient request if the prescription is for a schedule II opioid... Start Date: 06/21/22 Status: Ordered glipiZIDE 10 mg oral tablet 1 tablet = 10 mg, By Mouth, 2 times a day, for 90 days, # 180 tablet, 3 Refills, Hard Stop 06/21/2221:35:00 EDT, 06/26/21 21:35:00 EDT, [facility]t, [facility], Partial fill upon patient requestif the prescription is for a schedule II opioid shi... Start Date: 06/26/21 Stop Date: 06/21/22 Status: Ordered glipiZIDE 10 mg oral tablet 1 tablet = 10 mg, By Mouth, 2 times a day, # 180 tablet, 11 Refills, Maintenance, 06/21/22 21:35:00EDT, [facility]t, [facility], Partial fill upon patient request if the prescription is for a schedule II opioid drug., 166, cm, 04/11/21 8:31:00 ED... Start Date: 06/21/22 Status: Ordered lisinopril 10 mg oral tablet 10 mg, 1, tablet, By Mouth, Daily, # 90 tablet, Refills 6, Tot. Refills 6, Maintenance, 04/11/21 8:49:00 EDT, Route to Pharm[facility] Electronically, [id number], Partial fill upon patient request if the prescription is for a schedule II opioid drug... Start Date: 04/11/21 Status: Ordered metFORMIN 500 mg oral tablet 2 tablet = 1,000 mg, By Mouth, 2 times a day, # 120 tablet, 3 Refills, Maintenance, 11/11/20 15:58:00 EST, [facility]t, [facility], Partial fill upon patient request if the prescription is for a schedule II opioid drug., 166, cm, 11/03/19 15:28:00... Start Date: 11/11/20 Status: Ordered Nitrostat 0.4 mg sublingual tablet 1 tablet = 0.4 mg, Sublingual, Every 5 minutes, PRN Chest Pain, # 100 tablet, 0 Refills, Maintenance, 11/03/19 16:02:00 EST, [facility], 166, cm, 11/03/19 15:28:00 EST, [...]
--- OUTSIDE RECORDS SUMMARY | 2024-03-20 19:15 | XMS_ITS | Continuity of Care Document ---
Author Organization [facility] Address [address] [place] [address]- Care Team Providers Care Personnel Associate Name Role Phone Yessenia Simmons MD Primary Care Physician [phone] [place] [facility] [place] Date(s): 07/22/21 - 10/03/21 [facility] [address] [place] [address]- Attending Physician: Anca Robert MD Admitting Physician: Anca Robert MD Referring Physician: Yessenia Simmons MD Allergies, [...] Refills, Maintenance, 07/17/21 10:05:00 EDT, [facility]t, [id number], Partial fill upon patient request if the prescription is for a schedule IIopioid drug., 166, cm, 07/17/21 9:36:00 EDT, Height... Start Date: 07/17/21 Status: Ordered carvedilol 12.5 mg oral tablet 12.5 mg, 1, tablet, By Mouth, 2 times a day, # 180 tablet, Refills 11, Tot. Refills 11, Maintenance, 07/17/21 10:05:00 EDT, Route to Pharm[facility] Electronically, [facility], Partial fill upon patient request if the prescription is for a schedule... Start Date: 07/17/21 Status: Ordered ciclopirox 0.77% topical cream 1 application, Topically, 2 times a day, # 30 Gm, 0 Refills, Maintenance, 01/21/21 9:18:00 EDT, Cream, [facility], Partial fill upon patient request [...] 21:34:00 EDT, 06/26/21 21:34:00 EDT, [facility]t, [facility], Partial fill upon patient request if the prescript... Start Date: 06/26/21 Stop Date: 06/21/22 Status: Ordered Eliquis 5 mg oral tablet 1 tablet = 5 mg, By Mouth, 2 times a day, TAKE 1 TABLET BY MOUTH TWICE A DAY, # 180 tablet, 11 Refills, Maintenance, 06/21/22 21:34:00 EDT, [facility], [facility], Partial fill upon patient request if the prescription is for a schedule II opioid... Start Date: 06/21/22 Status: Ordered glipiZIDE 10 mg oral tablet 1 tablet = 10 mg, By Mouth, 2 times a day, for 90 days, # 180 tablet, 3 Refills, Hard Stop 06/21/2221:35:00 EDT, 06/26/21 21:35:00 EDT, [facility], [facility], Partial fill upon patient requestif the prescription is for a schedule II opioid shi... Start Date: 06/26/21 Stop Date: 06/21/22 Status: Ordered glipiZIDE 10 mg oral tablet 1 tablet = 10 mg, By Mouth, 2 times a day, # 180 tablet, 11 Refills, Maintenance, 06/21/22 21:35:00EDT, [facility], [facility], Partial fill upon patient request if the prescription is for a schedule II opioid drug., 166, cm, 04/11/21 8:31:00 ED... Start Date: 06/21/22 Status: Ordered lisinopril 10 mg oral tablet 10 mg, 1, tablet, By Mouth, Daily, # 90 tablet, Refills 6, Tot. Refills 6, Maintenance, 04/11/21 8:49:00 EDT, Route to Pharmacy Electronically, [facility], Partial fill upon patient request if the prescription is for a schedule II opioid drug... Start Date: 04/11/21 Status: Ordered metFORMIN 500 mg oral tablet 2 tablet = 1,000 mg, By Mouth, 2 times a day, # 120 tablet, 3 Refills, Maintenance, 11/11/20 15:58:00 EST, [facility]t, [facility], Partial fill upon patient request if the prescription is for a schedule II opioid drug., 166, cm, 11/03/19 15:28:00... Start Date: 11/11/20 Status: Ordered Nitrostat 0.4 mg sublingual tablet 1 tablet = 0.4 mg, Sublingual, Every 5 minutes, PRN Chest Pain, # 100 tablet, 0 Refills, Maintenance, 11/03/19 16:02:00 EST, [facility]t, [facility], 166, cm, 11/03/19 15:28:00 EST, [...]
--- OUTSIDE RECORDS SUMMARY | 2024-03-20 19:15 | XMS_ITS | Continuity of Care Document ---
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 Start Date: 07/17/21 Status: Ordered carvedilol 12.5 mg oral tablet 12.5 mg, 1, tablet, By Mouth, 2 times a day, # 180 tablet, Refills 11, Tot. Refills 11, Maintenance, 07/17/21 10:05:00 EDT, Route to Pharm[facility] Electronically, [id number], Partial fill upon patient request if the prescription is for a schedule... Start Date: 07/17/21 Status: Ordered ciclopirox 0.77% topical cream 1 application, Topically, 2 times a day, # 30 Gm, 0 Refills, Maintenance, 01/21/21 9:18:00 EDT, Cream, [id number], Partial fill upon patient request [...] 21:34:00 EDT, 06/26/21 21:34:00 EDT, [facility]t, [facility], Partial fill upon patient request if the prescript... Start Date: 06/26/21 Stop Date: 06/21/22 Status: Ordered Eliquis 5 mg oral tablet 1 tablet = 5 mg, By Mouth, 2 times a day, TAKE 1 TABLET BY MOUTH TWICE A DAY, # 180 tablet, 11 Refills, Maintenance, 06/21/22 21:34:00 EDT, [facility]t, [facility], Partial fill upon patient request if the prescription is for a schedule II opioid... Start Date: 06/21/22 Status: Ordered glipiZIDE 10 mg oral tablet 1 tablet = 10 mg, By Mouth, 2 times a day, for 90 days, # 180 tablet, 3 Refills, Hard Stop 06/21/2221:35:00 EDT, 06/26/21 21:35:00 EDT, [facility], [facility], Partial fill upon patient requestif the prescription is for a schedule II opioid shi... Start Date: 06/26/21 Stop Date: 06/21/22 Status: Ordered glipiZIDE 10 mg oral tablet 1 tablet = 10 mg, By Mouth, 2 times a day, # 180 tablet, 11 Refills, Maintenance, 06/21/22 21:35:00EDT, [facility]t, [facility], Partial fill upon patient request if the prescription is for a schedule II opioid drug., 166, cm, 04/11/21 8:31:00 ED... Start Date: 06/21/22 Status: Ordered lisinopril 10 mg oral tablet 10 mg, 1, tablet, By Mouth, Daily, # 90 tablet, Refills 6, Tot. Refills 6, Maintenance, 04/11/21 8:49:00 EDT, Route [facility] Pharm[facility] Electronically, [facility], Partial fill upon patient request if the prescription is for a schedule II opioid drug... Start Date: 04/11/21 Status: Ordered metFORMIN 500 mg oral tablet 2 tablet = 1,000 mg, By Mouth, 2 times a day, # 120 tablet, 3 Refills, Maintenance, 11/11/20 15:58:00 EST, [facility]t, [facility], Partial fill upon patient request if the prescription is for a schedule II opioid drug., 166, cm, 11/03/19 15:28:00... Start Date: 11/11/20 Status: Ordered Nitrostat 0.4 mg sublingual tablet 1 tablet = 0.4 mg, Sublingual, Every 5 minutes, PRN Chest Pain, # 100 tablet, 0 Refills, Maintenance, 11/03/19 16:02:00 EST, [facility]t, [facility], 166, cm, 11/03/19 15:28:00 EST, [...]
--- OUTSIDE RECORDS SUMMARY | 2024-03-20 19:15 | XMS_ITS | Continuity of Care Document ---
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 Start Date: 07/17/21 Status: Ordered carvedilol 12.5 mg oral tablet 12.5 mg, 1, tablet, By Mouth, 2 times a day, # 180 tablet, Refills 11, Tot. Refills 11, Maintenance, 07/17/21 10:05:00 EDT, Route [place] Pharm[facility] Electron[facility], [facility], Partial fill upon patient request if the prescription is for a schedule... Start Date: 07/17/21 Status: Ordered ciclopirox 0.77% topical cream 1 application, Topically, 2 times a day, # 30 Gm, 0 Refills, Maintenance, 01/21/21 9:18:00 EDT, Cream, [facility], Partial fill upon patient request [...] 21:34:00 EDT, 06/26/21 21:34:00 EDT, [facility]t, [facility], Partial fill upon patient request if the prescript... Start Date: 06/26/21 Stop Date: 06/21/22 Status: Ordered Eliquis 5 mg oral tablet 1 tablet = 5 mg, By Mouth, 2 times a day, TAKE 1 TABLET BY MOUTH TWICE A DAY, # 180 tablet, 11 Refills, Maintenance, 06/21/22 21:34:00 EDT, [facility]t, [facility], Partial fill upon patient request if the prescription is for a schedule II opioid... Start Date: 06/21/22 Status: Ordered glipiZIDE 10 mg oral tablet 1 tablet = 10 mg, By Mouth, 2 times a day, for 90 days, # 180 tablet, 3 Refills, Hard Stop 06/21/2221:35:00 EDT, 06/26/21 21:35:00 EDT, [facility]t, [facility], Partial fill upon patient requestif the prescription is for a schedule II opioid shi... Start Date: 06/26/21 Stop Date: 06/21/22 Status: Ordered glipiZIDE 10 mg oral tablet 1 tablet = 10 mg, By Mouth, 2 times a day, # 180 tablet, 11 Refills, Maintenance, 06/21/22 21:35:00EDT, [facility]t, [facility], Partial fill upon patient request if the prescription is for a schedule II opioid drug., 166, cm, 04/11/21 8:31:00 ED... Start Date: 06/21/22 Status: Ordered lisinopril 10 mg oral tablet 10 mg, 1, tablet, By Mouth, Daily, # 90 tablet, Refills 6, Tot. Refills 6, Maintenance, 04/11/21 8:49:00 EDT, Route [facility] Pharm[facility] Electronically, [facility], Partial fill upon patient request if the prescription is for a schedule II opioid drug... Start Date: 04/11/21 Status: Ordered metFORMIN 500 mg oral tablet 2 tablet = 1,000 mg, By Mouth, 2 times a day, # 120 tablet, 3 Refills, Maintenance, 11/11/20 15:58:00 EST, Tablet, [facility], Partial fill upon patient request if the prescription is for a schedule II opioid drug., 166, cm, 11/03/19 15:28:00... Start Date: 11/11/20 Status: Ordered Nitrostat 0.4 mg sublingual tablet 1 tablet = 0.4 mg, Sublingual, Every 5 minutes, PRN Chest Pain, # 100 tablet, 0 Refills, Maintenance, 11/03/19 16:02:00 EST, [facility]t, [facility], 166, cm, 11/03/19 15:28:00 EST, [...]
--- OUTSIDE RECORDS SUMMARY | 2024-03-20 19:15 | XMS_ITS | Continuity of Care Document ---
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 Role Phone Yessenia Simmons MD Primary Care Physician [phone] Encounter [facility] [place] Date(s): 04/29/23 - 05/29/23 [facility] [address] [place], [place] [address] Allergies, Adverse Reactions, Alerts No Known Allergies Immunizations Given and Recorded Vaccine Date Status Refusal Reason tetanus-diphtheria toxoids (Td) 1 04/29/23 Given [id number] 12y+ bivalent booster vax 07/29/22 Given influenza virus vaccine, inactivated 07/29/22 Give n influenza virus vaccine, inactivated 2 07/17/21 Gi ada SARS-CoV-2 (COVID-19) mRNA-1273 vaccine 08/30/21 R ecorded SARS-CoV-2 (COVID-19) mRNA-1273 vaccine 01/04/21 R ecorded SARS-CoV-2 (COVID-19) mRNA-1273 vaccine 11/29/20 R ecorded zoster vaccine, inactivated 07/31/20 Recorded Pneumococcal Vaccine (oldterm) 11/29/07 Given 1Result Comment: [facility] [id number] 2Result Comment: Patient tollerated well Medications Ascriptin Enteric 81 mg, By Mouth, Daily, Refills 0, Tot. Refills 0, 11/16/07 18:08:35 Start Date: 11/16/07 Status: Ordered atorvastatin 40 mg oral tablet 1 tablet = 40 mg, By Mouth, Daily, # 90 tablet, 11 Refills, Maintenance, 10/06/22 9:10:00 EST, Tablet, [facility], Partial fill upon patient request if the prescription is for a schedule II opioid drug., 166, cm, 10/06/22 8:31:00 E... Start Date: 10/06/22 Status: Ordered carvedilol 25 mg oral tablet 25 mg, 1, tablet, By Mouth, 2 times a day, # 180 tablet, Refills 0, Tot. Refills 0, Maintenance, 02/10/23 8:50:00 EDT, Route to Pharmacy Electronically, [facility]/pharmacy #[id number], Partial fill upon patient request if the prescription is for a schedule II opi... Start Date: 02/10/23 Status: Ordered Eliquis 5 mg oral tablet 1 tablet = 5 mg, By Mouth, 2 times a day, TAKE 1 TABLET BY MOUTH TWICE A DAY, # 180 tablet, 11 Refills, Maintenance, 06/21/22 21:34:00 EDT, Tablet, [facility] [id number] [facility], Partial fill upon patient request if the prescription is for a schedule II opioid... Start Date: 06/21/22 Status: Ordered glipiZIDE 10 mg oral tablet 1 tablet = 10 mg, By Mouth, 2 times a day, # 180 tablet, 11 Refills, Maintenance, 09/22/22 16:41:00EST, Tablet, [facility], Partial fill upon patient request if the prescription is for a schedule II opioid drug., 166, cm, 03/30/22... Start Date: 09/22/22 Status: Ordered lisinopril 10 mg oral tablet 10 mg, 1, tablet, By Mouth, Daily, # 90 tablet, Refills 0, Tot. Refills 0, Maintenance, 04/29/23 17:39:00 EDT, Route to Pharmacy Electronically, [facility]/pharmacy #[id number], did not tolerate 20 mg dose;, 164.03, cm, 04/29/23 9:31:00 EDT, Height, 55.6, kg, 01/19... Start Date: 04/29/23 Stop Date: 07/28/23 Status: Ordered metFORMIN 500 mg oral tablet 2 tablet = 1,000 mg, By Mouth, 2 times a day, # 120 tablet, 11 Refills, Maintenance, 10/06/22 9:08:00 EST, Tablet, [facility], Partial fill upon patient request if the prescription is for a schedule II opioid drug., 166, cm, ... Start Date: 10/06/22 Status: Ordered Nitrostat 0.4 mg sublingual tablet 1 tablet = 0.4 mg, Sublingual, Every 5 minutes, PRN Chest Pain, # 100 tablet, 0 Refills, Maintenance, 11/03/19 16:02:00 EST, [id number], 166, cm, 11/03/19 15:28:00 EST, [...] Care Nurse Name: Yessenia Simmons MD Position: [facility] Physician - Primary Care Member Role: PCP Address: Address: [address] [place] [address] Adult [place] [address]- Name: Kati Gordon RN Position: S RN Member Role: Primary Care Nurse Care Team Related Persons Name: MARK WELLINGTON Address: home [address] [place] [address] Name: FANY CASE Address: home [address] [place] [address]
--- OUTSIDE RECORDS SUMMARY | 2024-03-20 19:15 | XMS_ITS | Continuity of Care Document ---
Author Organization [facility] Address [address] [place] [address]- Care Team Providers Care Clinic Charge Nurse Name Role Phone Mosesquan Lisa ARANGO Primary Care Physician [phone] Encounter [facility] [place] Date(s): 11/03/19 - 11/03/[address] [address]- [facility] Discharge Disposition: A-D/C Home Attending Physician: Luis Willingham DO Admitting Physician: Cristhian Malcolm MD Referring Physician: Not on Staff, Referring MD Allergies, Adverse Reactions, Alerts Substance Reaction Severity Status NKA Active Immunizations Given and Recorded Vaccine Date Status Refusal Reason Pneumococcal Vaccine (oldterm) 11/29/07 Given Medications amLODIPine 5 mg oral tablet 5 mg, 1, tablet, By Mouth, Daily, # 30 tablet, Refills 0, Tot. Refills 0, Maintenance, 11/03/19 16:01:00 EST, [place] [facility], 166, cm, 11/03/19 15:28:00 EST, [...] Refills, Maintenance, 11/03/19 16:02:00 EST, Tablet, [facility], 166, cm, 11/03/19 15:28:00 EST, Height, 65.3,kg, 11/01/19 22:48:00 EST, Dry Weight Start Date: 11/03/19 Stop Date: 12/03/19 Status: Ordered Problem List Condition Effective Dates Status Health Status Inform ant Diabetes mellitus(Confirmed) Active Ischemic cardiomyopathy(Confirmed) Active Hyperlipidemia(Confirmed) Active Results Radiology Reports * Exam Date Time Procedure Performing Provider Status 11/01/19 1:14 PM Chest 2 Views Frontal and Lat Doris Serna; Martha (Verified) Notes: (Chest 2 Views Frontal and Lat) Reason For Exam: Chest Pain;Other: RESULT: Chest 2 Views Frontal and Lat Examination: Chest performed on 11/01/2019. History: Possible coronary occlusion. Findings: Frontal and lateral views of the chest are compared to a prior study dated 08/30/2015. Pacer is noted. Sternotomy wires are intact. The cardiac and mediastinal silhouettes are within normal limits. The lungs are clear. The osseous and soft tissue structures are unremarkable. Impression: There is no acute cardiopulmonary disease. WSN: [id number] Dictated By: Kelsea Momin MD Dictated Date/Time: 11/01/19 1:20 pm Reviewed By: Kelsea Momin MD Signed By: Kelsea Momin MD Signed Date/Time: 11/01/19 1:20 pm Transcribed By: LEOPOLDO Transcribed Date/Time: 11/01/19 1:19 pm Vital Signs Most recent to oldest [Reference Range]: 1 2 3 4 5 Height 166 cm (11/03/19 3:28 PM) 166 cm (11/03/19 11:14 AM) 166 cm (11/03/19 7:23 AM) Weight 65.3 kg (11/02/19 1:23 PM) 65.3 kg (11/01/19 10:48 PM) 65.3 kg (11/01/19 9:53 PM) Oxygen Saturation [94-100 %] 98 % (11/03/19 3:28 PM) 98 % (11/03/19 11:14 AM) 99 % (11/03/19 7:23 AM) Pulse Rate [55-90 bpm] 59 bpm (11/03/19 3:28 PM) 52 bpm *L* (11/03/19 11:14 AM) 62 bpm (11/03/19 9:25 AM) Body Mass Index [18.5-24.99] 23.7 (11/01/19 9:53 PM) Blood Pressure [90-138/55-84 mm Hg] 144/79mm Hg *H* (11/03/19 3:28 PM) 113/60mm Hg (11/03/19 11:14 AM) 155/86mm Hg *H* (11/03/19 9:25 AM) 155/86mm Hg *H* (11/03/19 9:25 AM) 155/86mm Hg *H* (11/03/19 9:25 AM) Respiratory Rate [16-30 br/min] 20 br/min (11/03/19 3:28 PM) 20 br/min (11/03/19 11:14 AM) 18 br/min (11/03/19 10:19 AM) Temperature [96.8-100.4 DegF] 97.2 DegF (11/03/19 3:28 PM) 97.4 DegF (11/03/19 11:14 AM) 97.5 DegF (11/03/19 7:23 AM) Mode of Delivery (Oxygen) Room air (11/03/19 3:28 PM) Room air (11/03/19 11:14 AM) Room air (11/03/19 7:23 AM) Blood pressure sites Arm, left (11/03/19 3:28 PM) Arm, left (11/03/19 11:14 AM) Arm, left (11/03/19 7:23 AM) Temperature Route Oral (11/03/19 3:28 PM) Oral (11/03/19 11:14 AM) Oral (11/03/19 7:23 AM) Dry Weight 65.3 kg (11/01/19 9:53 PM) Social History Social History Type Response Smoking Status Never smoker entered on: 02/12/16 Sex
--- OUTSIDE RECORDS SUMMARY | 2024-03-20 19:15 | XMS_ITS | Continuity of Care Document ---
Author Organization [facility] Address [address] [place] [address]- Care Team Providers Care Executive Office Manager Name Role Phone Troy GUNDERSON, Yessenia Primary Care Physician Encounter [facility] Date(s): 07/21/23 - 08/20/23 [facility] [address], [place] [address] Allergies, Adverse Reactions, Alerts No Known Allergies Immunizations Given and Recorded Vaccine Date Status Refusal Reason influenza virus vaccine, inactivated 1 08/03/23 Gi ada influenza virus vaccine, inactivated 07/29/22 Give n influenza virus vaccine, inactivated 2 07/17/21 Gi ada tetanus-diphtheria toxoids (Td) 3 04/29/23 Given [id number] 12y+ bivalent booster vax 07/29/22 Given SARS-CoV-2 (COVID-19) mRNA-1273 vaccine 08/30/21 R ecorded SARS-CoV-2 (COVID-19) mRNA-1273 vaccine 01/04/21 R ecorded SARS-CoV-2 (COVID-19) mRNA-1273 vaccine 11/29/20 R ecorded zoster vaccine, inactivated 07/31/20 Recorded Pneumococcal Vaccine (oldterm) 11/29/07 Given 1Result Comment: [facility] [id number] 2Result Comment: Patient tollerated well 3Result Comment: [facility] [id number] Medications Ascriptin Enteric 81 mg, By Mouth, Daily, Refills 0, Tot. Refills 0, 11/16/07 18:08:35 Start Date: 11/16/07 Status: Ordered atorvastatin 40 mg oral tablet 1 tablet = 40 mg, By Mouth, Daily, # 90 tablet, 11 Refills, Maintenance, 10/06/22 9:10:00 EST, Tablet, [facility], Partial fill upon patient request if the prescription is for a schedule II opioid drug., 166, cm, 10/06/22 8:31:00 E... Start Date: 10/06/22 Status: Ordered carvedilol 25 mg oral tablet 25 mg, 1, tablet, By Mouth, 2 times a day, # 180 tablet, Refills 0, Tot. Refills 0, Maintenance, 02/10/23 8:50:00 EDT, Route to Pharmacy Electronically, [facility]/pharmacy #[id number], Partial fill upon patient request if the prescription is for a schedule II opi... Start Date: 02/10/23 Status: Ordered glipiZIDE 10 mg oral tablet 1 tablet = 10 mg, By Mouth, 2 times a day, # 180 tablet, 11 Refills, Maintenance, 09/22/22 16:41:00EST, Tablet, [facility], Partial fill upon patient request if the prescription is for a schedule II opioid drug., 166, cm, 03/30/22... Start Date: 09/22/22 Status: Ordered lisinopril 10 mg oral tablet 10 mg, 1, tablet, By Mouth, Daily, # 90 tablet, Refills 1, Tot. Refills 1, Maintenance, 07/28/23 17:39:00 EST, Route to Pharmacy Electronically, [facility]/pharmacy #[id number], did not tolerate 20 mg dose;, 164.03, cm, 04/29/23 9:31:00 EDT, Height, 55.6, kg, 052... Start Date: 07/28/23 Stop Date: 01/24/24 Status: Ordered metFORMIN 500 mg oral tablet 2 tablet = 1,000 mg, By Mouth, 2 times a day, # 120 tablet, 11 Refills, Maintenance, 10/06/22 9:08:00 EST, Tablet, [facility], Partial fill upon patient request if the prescription is for a schedule II opioid drug., 166, cm, ... Start Date: 10/06/22 Status: Ordered Nitrostat 0.4 mg sublingual tablet 1 tablet = 0.4 mg, Sublingual, Every 5 minutes, PRN Chest Pain, # 100 tablet, 0 Refills, Maintenance, 11/03/19 16:02:00 EST, Tablet, [id number], 166, cm, 11/03/19 15:28:00 EST, [...] Primary Care Member Role: PCP Address: Address: [address] [place] [address] [facility] [place], [place] [address] Name: Kati Gordon RN Position: S RN Member Role: Primary Care Nurse Care Team Related Persons Name: MARK WELLINGTON Address: [address] [place] [address] Name: FANY CASE Address: home [address] [place] [address]
[2024-03-20 19:44] VITALS: BP 119/53; BP 125/57; PULSE 62; PULSE 63
[2024-03-20 19:45] VITALS: BP 118/49; PULSE 71
--- NOTE | 2024-03-20 20:27 | PM.IMHP ---
History of Present Illness Date of Service: 03/20/24 <DARRYN Tello - Last Filed: 03/20/24 20:40> Attending physician on admission: Lakeshia Wallace <DARRYN Tello - Last Filed: 03/20/24 20:40> Chief Complaint: weakness, positional dizziness, sob <DARRYN Tello - Last Filed: 03/20/24 20:40> 83-year-old male with history of paroxysmal atrial fibrillation anticoagulated with Coumadin, history of alcohol use disorder in remission, tkd-rxccnuv-fvsnubece type 2 diabetes, coronary artery disease s/p CABG, ischemic cardiomyopathy s/p AICD placement, hyperlipidemia, hypertension presented to the ED earlier today accompanied by his daughter, Kelly, for evaluation of generalized weakness, positional lightheadedness, and shortness of breaths describes it as air hunger ongoing for the last 3 days. He has also had poor appetite and nausea and daughter reports he has not been eating much in recent months. He has been experiencing cramping to the bilateral thighs especially when walking. He has been told in recent weeks that his magnesium was low and was started on magnesium oxide twice daily which he has been compliant with. Despite supplementation, has not felt much better. Denies fevers, chills, headache, abdominal pain, nausea, vomiting, diarrhea, constipation, melena, hematochezia, hematuria, dysuria, palpitations, or chest pain. Since arrival, vital signs are stable. He has a normocytic anemia with H/H 7.7/23.1% (baseline 10.5/32.9% in 07/2023). Creatinine baseline, BUN slightly bumped at 31, electrolyte levels normal. Glucose 197. Troponin undetectable but within normal limits. INR 2.5. Head CT negative for acute intracranial abnormality. CXR unremarkable. Patient will be admitted for further evaluation and management of acute GI bleed. <DARRYN Tello - Last Filed: 03/20/24 20:40> Review of Systems Review of Systems: Yes all other systems are reviewed and are negative <DARRYN Telol - Last Filed: 03/20/24 20:40> [facility] Medical History: Medical History History of alcohol abuse Ischemic cardiomyopathy with implantable cardioverter-defibrillator (ICD) Hyperlipidemia HTN (hypertension) Diabetes mellitus CAD (coronary artery disease) Atrial fibrillation <DARRYN Tello - Last Filed: 03/20/24 20:40> Social History: Social History Housing: House Housing Other:: [facility] [employer] HIM - MARK Alcohol intake: former Patient Tobacco Use Status: Never used Tobacco Smoked in Last 30 Days: No Use of substances other than those prescribed or required for medical reasons: No Advance Directives: Yes Advance Directives on File: Yes Advance Directives Date on File: 08/16/23 Current occupation: RETIRED 20 YEARS Current occupational exposures/hazards: No <DARRYN Tello - Last Filed: 03/20/24 20:40> Meds Allergies/Adverse reactions: Allergies Allergy/AdvReac Type Severity Reaction Status Date / Time isosorbide AdvReac Unknown dizziness Verified 03/20/24 18:17 <DARRYN Tello - Last Filed: 03/20/24 20:40> Active Medications: Current Medications Acetaminophen (Acetaminophen 325 Mg Tablet) 650 mg PO Q6H PRN PRN Reason: Pain, Mild (Pain Scale 1-3), fever or headache Calcium Carbonate (Calcium Carbonate 750 Mg Tab.Chew) 750 mg PO Q4H PRN PRN Reason: Heartburn Sodium Chloride (Ns) 100 mls @ 100 mls/hr IV ONCE ONE Stop: 03/20/24 21:22 Magnesium Hydroxide (Milk Of Magnesia 30 Ml Oral.Susp) 30 ml PO DAILY PRN PRN Reason: Constipation Melatonin (Melatonin 3 Mg Tablet) 6 mg PO BEDTIME PRN PRN Reason: Insomnia Pantoprazole Sodium (Pantoprazole Sodium 40 Mg/10 Ml Vial) 40 mg IVPUSH BID@0630,1630 DEMETRIUS Sodium Chloride (0.9 % Sodium Chloride Flush 3 Ml Syringe) 3 ml IVFLUSH QSHIFT DEMETRIUS <DARRYN Tello - Last Filed: 03/20/24 20:40> Home medications: Home Medications ?Medication ?Instructions ?Recorded ?Confirmed ?Last Taken ?Type aspirin 81 mg tablet,delayed 81 mg PO DAILY 06/14/23 03/17/24 Unknown History release (Adult Aspirin Regimen) lisinopril 10 mg tablet 10 mg PO DAILY 06/14/23 03/17/24 Unknown History warfarin 5 mg tablet 5 mg PO .COMPLEX 06/14/23 03/17/24 Unknown History metformin 500 mg tablet 1,000 mg PO BID 07/08/23 03/17/24 Unknown History magnesium oxide 400 mg (241.3 mg 200 mg PO BID 10/22/23 03/17/24 Unknown History magnesium) tablet <DARRYN Tello - Last Filed: 03/20/24 20:40> Physical Exam Vital Signs and Narrative: Vital Signs: Last Vital Signs Temp 97.3 F 03/20/24 18:18 Pulse 71 03/20/24 19:45 Resp 16 03/20/24 18:18 BP 118/49 L 03/20/24 19:45 Pulse Ox 98 03/20/24 18:18 O2 Del Method Room Air 03/20/24 18:18 BMI result Body Mass Index 23.3 <DARRYN Tello - Last Filed: 03/20/24 20:40> Results Labs CBC and Chem 7: 03/20/24 18:27 03/20/24 18:27 <DARRYN Tello - Last Filed: 03/20/24 20:40> Labs: Laboratory Results - last 24 hr 03/20/24 18:27 MCV 88.2 MCH 29.4 MCHC 33.3 RDW 14.8 Plt Count 178 MPV 9.6 Immature Gran % (Auto) 0.2 Neut % (Auto) 68.8 Lymph % (Auto) 20.7 Rush % (Auto) 9.1 Eos % (Auto) 0.8 Baso % (Auto) 0.4 Lymph # (Auto) 1.0 L Rush # (Auto) 0.4 Eos # (Auto) 0.0 Baso # (Auto) 0.0 Abs Immat Gran (auto) 0.01 Absolute Neuts (auto) 3.3 Absolute Nucleated RBC 0.000 Nucleated RBC % (auto) 0.0 PT 30.9 H INR 2.5 H Anion Gap 14 Estim Creat Clear Calc 43.0 Estimated GFR > 60 Random Glucose 197 H Calcium 9.6 Magnesium 1.5 L Total Bilirubin 0.3 AST 25 ALT 22 Alkaline Phosphatase 80 Total Creatine Kinase 55 Troponin I High Sens 8.0 Total Protein 6.1 L Albumin 3.6 Lipase 45 Influenza Type A (PCR) NEGATIVE Influenza Type B (PCR) NEGATIVE RSV RNA Qual (PCR) NEGATIVE SARS-CoV-2 RNA (RT-PCR) NEGATIVE <DARRYN Tello - Last Filed: 03/20/24 20:40> Imaging Radiologist's Impressions: Impressions Chest X-Ray 03/20/24 18:55 IMPRESSION: No acute process Head CT 03/20/24 19:02 IMPRESSION: 1. No evidence of acute intracranial hemorrhage or edematous territorial infarction. 2. Moderate underlying microangiopathy and generalized cerebral volume loss. <DARRYN Tello - Last Filed: 03/20/24 20:40> Assessment and Plan (1) Acute GI bleeding: Status: Acute <DARRYN Tello - Last Filed: 03/20/24 20:40> 83-year-old male with history of paroxysmal atrial fibrillation anticoagulated with Coumadin, history of alcohol use disorder in remission, ytg-rqdzrje-gxhettgyd type 2 diabetes, coronary artery disease s/p CABG, ischemic cardiomyopathy s/p AICD placement, hyperlipidemia, hypertension admitted for further evaluation and management of acute GI bleeding # acute blood loss anemia secondary to suspected GI bleed -H/H 7.7/23.1% open (baseline around 10.5/32.9%). Given history of CAD, transfuse 1 unit packed red blood cells -stool occult blood pending-patient refuses rectal exam -iron studies, ferritin pending -IV PPI -clear liquid diet -gastroenterology consult -hold Coumadin, aspirin -monitor on telemetry # acute hypomagnesemia -2 g IV magnesium ordered. Continue magnesium oxide p.o. # paroxysmal atrial fibrillation-rate controlled -hold Coumadin -continue carvedilol for rate # uql-xmineeb-olvvcgoce type 2 diabetes -POC glucose, diabetic diet -Humalog on sliding scale # coronary artery disease/ischemic cardiomyopathy -hold aspirin. Continue carvedilol, statin # hyperlipidemia -statin # hypertension -will continue carvedilol given history of AFib. However, hold lisinopril in setting of GI bleed DVT prophylaxis- SCPs DNR/DNI Patient requires inpatient stay at least 2 midnights for management of acute blood loss anemia secondary to suspected GI bleed requiring blood transfusion, close monitoring of hemoglobin/hematocrit, expert consultation, and further investigation into etiology of anemia which may include EGD/colonoscopy. <DARRYN Tello - Last Filed: 03/20/24 20:40> 83-year-old male with history of paroxysmal atrial fibrillation anticoagulated with Coumadin, history of alcohol use disorder in remission, dty-njpcfex-bmlqyqxaz type 2 diabetes, coronary artery disease s/p CABG, ischemic cardiomyopathy s/p AICD placement, hyperlipidemia, hypertension admitted for further evaluation and management of acute GI bleeding # acute blood loss anemia secondary to suspected GI bleed -H/H 7.7/23.1% open (baseline around 10.5/32.9%). Given history of CAD, transfuse 1 unit packed red blood cells -stool occult blood pending-patient refuses rectal exam -iron studies, ferritin pending -IV PPI -clear liquid diet -gastroenterology consult -hold Coumadin, aspirin -monitor on telemetry # acute hypomagnesemia -2 g IV magnesium ordered. Continue magnesium oxide p.o. # paroxysmal atrial fibrillation-rate controlled -hold Coumadin # lry-hxjugyc-ozmqrukda type 2 diabetes -POC glucose, diabetic diet -Humalog on sliding scale # coronary artery disease/ischemic cardiomyopathy -hold aspirin. Continue statin # hyperlipidemia -statin # hypertension -hold carvedilol and lisinopril in setting of GI bleed DVT prophylaxis- SCPs DNR/DNI Patient requires inpatient stay at least 2 midnights for management of acute blood loss anemia secondary to suspected GI bleed requiring blood transfusion, close monitoring of hemoglobin/hematocrit, expert consultation, and further investigation into etiology of anemia which may include EGD/colonoscopy. <Lakeshia Wallace MD - Last Filed: 03/20/24 20:52> Quality Stroke Does the patient have a stroke diagnosis?: No <DARRYN Tello - Last Filed: 03/20/24 20:40> VTE Prior VTE?: No <DARRYN Tello - Last Filed: 03/20/24 20:40> VTE Risk Level:: Medical - moderate - high <DARRYN Tello - Last Filed: 03/20/24 20:40> VTE Device Contraindication: N/A - Device Ordered <DARRYN Tello - Last Filed: 03/20/24 20:40> VTE Drug Contraindication: Treatment Not Indicated <DARRYN Tello - Last Filed: 03/20/24 20:40>
--- NOTE | 2024-03-20 20:43 | PC.NURSE ---
Patient refused occult stool exam, provider at bedside and aware.
[2024-03-20 20:53] LABS: Iron 16 mcg/dL (45-160); Percent Iron Saturation 7 % (15-50); Total Iron Binding Capacity 225 mcg/dL (228-428); Unsaturated Iron Binding 209 ug/dL
--- NOTE | 2024-03-20 21:11 | MHC.EDTECH ---
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
[2024-03-20 21:14] LABS: Ferritin 9 ng/mL (20-250)
[2024-03-20] MEDS: Pantoprazole Sodium 40 MG/10 ML VIAL IVPUSH (21:16)
[2024-03-20] MEDS: Magnesium Sulfate/H2O 2 GM/50 ML PIGGYBACK IV (21:16)
[2024-03-20 21:26] LABS: Appearance Urine Clear; Color Urine Yellow; Glucose Urine UA Negative (Negative); Leukocyte Esterase Urine Negative (Negative); Nitrite Urine Negative (Negative); PH 5.5 (5.0-9.0); Urine Blood Negative (Negative); Urine Ketones Negative (Negative); Urine Protein Negative (Neg-Trace)
--- NOTE | 2024-03-20 21:48 | PC.NURSE ---
Type and Screen drawn and sent to lab by Lv [facility]YSON around 2029, called lab now because lab has not been received, spoke to Zohra, type and screen confirmed running.
[2024-03-20 22:50] VITALS: BP 128/63; PULSE 61; RESP 14; TEMP 36.6
[2024-03-20 23:08] VITALS: BP 128/66; PULSE 60; RESP 20; TEMP 36.5
[2024-03-21] VITALS (9 sets, daily range): BP systolic 118–155; BP diastolic 62–83; PULSE 60–65; RESP 12–20; TEMP 36.1–36.8; O2SAT 95–100
--- NOTE | 2024-03-21 02:56 | PC.NURSE ---
pt mec completed based on list family provided. copy of list placed in chart
--- NOTE | 2024-03-21 04:57 | PC.NURSE ---
pt ambulated to bathroom several times tonight, gait slow and even. pt reports he didn't sleep much d/t noise in ED, worse night ever
[2024-03-21 06:09] LABS: MANUAL DIFF FLAG NO
[2024-03-21 06:16] LABS: INTERNATIONAL NORM RATIO 2.6 (0.9-1.1); Prothrombin Time 31.2 SEC (11.1-13.3)
[2024-03-21 06:22] LABS: Basophils Percent Auto 0.5 % (0-2); Eosinophils Percent Auto 0.9 % (0-4); Hematocrit 28.1 % (42.0-52.0); Hemoglobin 9.3 g/dl (14.0-18.0); Imm Gran Abs Auto 0.01 X10*3/uL (0.00-0.03); Imm Gran Pct Auto 0.2 % (0.0-0.4); Lymphocytes Absolute Auto 1.1 X10*3/uL (1.2-4.9); Lymphocytes Percent Auto 26.3 % (20-40); Mean Corpuscular HGB Conc 33.1 g/dl (31.0-36.0); Mean Corpuscular Hemoglobin 28.8 pg (27.0-33.0); Mean Platelet Volume 9.5 fL (9.4-12.4); Monocytes Absolute Auto 0.5 X10*3/uL (0.1-1.2); Monocytes Percent Auto 10.5 % (2-11); Neutrophils Absolute Auto 2.7 x10*3/uL (2.0-8.3); Neutrophils Percent Auto 61.6 % (45-73); Platelet Count 176 X10*3/uL (160-400); Red Blood Count 3.23 X10*6/uL (4.60-5.80); White Blood Count 4.3 X10*3/uL (4.8-10.8)
[2024-03-21 06:28] LABS: Anion Gap 15 (12-20); Blood Urea Nitrogen 26 mg/dL (9-16); Calcium 9.4 mg/dL (8.4-10.2); Carbon Dioxide 24 mmol/L (22-29); Chloride 105 mmol/L (96-108); Creatinine Clr Calc Pharmacy 51.7; Estimated Glomerular Filt Rate > 60; Glucose Random 125 mg/dL (60-115); Potassium 4.1 mmol/L (3.3-5.1); Sodium 140 mmol/L (135-145)
[2024-03-21] MEDS: Pantoprazole Sodium 40 MG/10 ML VIAL IVPUSH ×2 (06:28→16:08)
[2024-03-21] MEDS: 0.9 % Sodium Chloride Flush 3 ML SYRINGE IVFLUSH ×2 (09:14→16:15)
--- NOTE | 2024-03-21 09:42 | MHC.CM.PN ---
Patient was unavailable; CM spoke with Daughter/HCP/Kendra @ [phone] and addressed IMM with her (original will be mailed certified mail to Kendra and a copy will be placed on the chart). 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 Kendra is requesting a referral to [facility]; MICHELLE has initiated and will follow for dc planning. PCP is Dr. Ria Bryant.
--- NOTE | 2024-03-21 10:35 | PHA.MEDREC ---
Pharmacy Consult ? Medication Reconciliation Pharmacy has reviewed the medication reconciliation done by nursing and also went to talk to patient. He has his medication list which states that he takes magnesium oxide 400 mg bid. He said his warfarin dose changes depending on his INR. He used to go to the coumadin clinic once a month but they called him and told him to come in this wednesday. He last took warfarin 5 mg yesterday 03/20/24 and none on Wednesday.
[2024-03-21] MEDS: carvediloL 12.5 MG TABLET PO (11:30)
[2024-03-21 11:36] LABS: Glucose, Whole Blood 155 mg/dL (60-115)
--- NOTE | 2024-03-21 13:34 | PC.NURSE ---
ASSUMED CARE OF THIS PT. HE IS RESTING COMFORTABLY AT THIS TIME. DUAGHTER AT BEDSIDE. DENIES ANY PAIN, N/V. EATING CLEAR LIQUIDS TRAY. INSULIN HELD HE HAS NOT EATEN THIS AM, HIS FAMILY AGREED THAT THEY DID NOT WANT IT TO BE ADMINISTERED. GI AT BEDSIDE, PT TO START BOWEL PREP TODAY FOR COLONOSCOPY [facility]W.
--- NOTE | 2024-03-21 13:37 | MHC.SHP ---
Pre-Procedural Eval Section A - 24 Hr Update-Section A only Date of Service: 03/21/24 The patient is an INPATIENT: Yes Changes since office visit: No Cold of Flu in the past 2 weeks, No New Medical Problems, No Changes in Medication and No Patient answered all questions The patient has been examined within 24 hours of the surgical procedure. The History & Physical has been completed within 30 days and I have reviewed it.: Yes Section B - Complete if H&P > 30 days Chief Complaint: acute GI bleed Allergies: Allergies Allergy/AdvReac Type Severity Reaction Status Date / Time isosorbide AdvReac Unknown dizziness Verified 03/20/24 18:17 Plan I have reviewed the history and physical and performed a pertinent physical examination on my patient. No changes have occurred unless specified. Time Spent With Patient Time: Total time managing care of this patient today ____ minutes.
--- NOTE | 2024-03-21 13:37 | PM.EVENT ---
Event Note Date of Service: 03/21/24 Event Note: GI consult dictated EGD/ Colonoscopy planned for 03/22 to evaluate for possible GI blood loss as a cause of anemia. Risks and benefits discussed with patient and daughter who agree to proceed. Time Spent With Patient Time: Total time managing care of this patient today ____ minutes.
--- NOTE | 2024-03-21 14:52 | CONS_ITS ---
DATE OF SERVICE: 03/21/2024 REFERRING PHYSICIAN: Prasad Church MD REASON FOR CONSULTATION: Anemia. HISTORY OF PRESENT ILLNESS: The patient is a pleasant 83-year-old man, who was admitted to the hospital after presenting to the emergency room with complaints of weakness and lightheadedness as well as shortness of breath for 3 days prior to admission. Additional symptoms included muscle cramping. He was evaluated in the emergency department with lab work showing a hematocrit of 23.1, down from 32.9 in July 2023. He was transfused 1 unit of packed red blood cells with improvement in his hematocrit. He has no reports of rectal bleeding, stating stools have been brown without any melena or hematochezia. He declined stool testing with digital rectal examination and has not had a bowel movement since his admission. He is anticoagulated with Coumadin because of paroxysmal atrial fibrillation and had a prothrombin time on admission of 31.2 with an INR of 2.6. Anticoagulation has been held since admission. PAST MEDICAL HISTORY: 1. Paroxysmal atrial fibrillation. 2. Coronary artery disease with history of stent placement and CABG. 3. Ischemic cardiomyopathy with AICD placement. 4. Hypertension. 5. Hyperlipidemia. 6. Diabetes mellitus. 7. Alcohol abuse, in remission. CURRENT MEDICATIONS: Current medication list is reviewed in the chart. ALLERGIES: ISOSORBIDE. FAMILY HISTORY: He denies any primary family relatives with GI malignancies. SOCIAL HISTORY: There is no current tobacco, alcohol, or substance abuse. REVIEW OF SYSTEMS: SKIN: No pruritus. HEENT: Negative. CARDIOPULMONARY: No chest pain. Shortness of breath as above. GASTROINTESTINAL: He has had some nausea, but no vomiting. GENITOURINARY: Negative. NEUROPSYCHIATRIC: Negative. PHYSICAL EXAMINATION: GENERAL: Shows a pleasant male, sitting comfortably in bed. VITAL SIGNS: Reviewed in electronic medical record and are stable. SKIN: Anicteric. HEENT: Shows no scleral icterus. NECK: Without lymphadenopathy or thyromegaly. LUNGS: Clear. HEART: Shows a regular rate and rhythm. S1, S2. No murmur. ABDOMEN: Soft without focal masses or tenderness. Bowel sounds are present. No organomegaly is noted. EXTREMITIES: Without edema. LABORATORY DATA AND IMAGING STUDIES: Reviewed. CT scanning was done of the abdomen and pelvis in July 2023, which showed mild constipation, but no stomach or bowel abnormalities. He believes his last colonoscopy was approximately 10 years ago or longer and was negative. IMPRESSION: Anemia. He does not appear to have active GI bleeding at this time, but I have recommended further evaluation with endoscopy and colonoscopy as he will need continued anticoagulation with warfarin. I have discussed risks and benefits of both procedures with him, he understands these and agrees to proceed. Thanks for asking me to see him. I will follow him in the hospital with you. MD MONICA Huston/ALANA / [phone]
[2024-03-21] MEDS: Phytonadione (Vit K1) 10 MG in 0.9 % Sodium Chloride 50 ML 51 MG IV (15:00)
--- NOTE | 2024-03-21 15:14 | HO.PM.IMPN ---
Subjective Subjective Date of Service: 03/21/24 Interval History: seen and evaluated this morning no reported bleeding Hb improved to 9.3 Review of Systems Review of Systems: Yes all other systems are reviewed and are negative Physical Exam Vital Signs: Vital Signs: Last Vital Signs Temp 97.8 F 03/21/24 12:29 Pulse 60 03/21/24 12:29 Resp 14 03/21/24 12:29 BP 141/73 H 03/21/24 12:29 Pulse Ox 98 03/21/24 12:29 O2 Del Method Room Air 03/21/24 12:29 BMI result Body Mass Index 23.3 Const: Other: Constitutional : interactive, not in distress Cardiovascular : no JVP, no lower extremity edema Respiratory : bilateral chest movement, not in resp distress Gastrointestinal: soft, lax, Non tender Skin : Warm, Dry Neurological : Alert & oriented to self and place , No focal deficit Objective Data Active Medications Acetaminophen (Acetaminophen 325 Mg Tablet) 650 mg PO Q6H PRN PRN Reason: Pain, Mild (Pain Scale 1-3), fever or headache Atorvastatin Calcium (Atorvastatin Calcium 40 Mg Tablet) 40 mg PO DAILY [facility] Calcium Carbonate (Calcium Carbonate 750 Mg Tab.Chew) 750 mg PO Q4H PRN PRN Reason: Heartburn Carvedilol (Carvedilol 12.5 Mg Tablet) 12.5 mg PO DAILY [facility]; Protocol Last Admin: 03/21/24 11:30 Dose: 12.5 mg Documented By: DEWAYNE Furosemide (Furosemide 20 Mg Tablet) 20 mg PO DAILY [facility]; Protocol Phytonadione 10 mg/ Sodium (Chloride) 51 mls @ 51 mls/hr IV ONCE ONE Stop: 03/21/24 15:29 Last Admin: 03/21/24 15:00 Dose: 51 mls/hr Documented By: MARK Insulin Human Lispro (Insulin Lispro 100 Unit/Ml 3 Ml Vial) 0 unit SUBCUT QIDACHS [facility]; Protocol Last Admin: 03/21/24 13:34 Dose: Not Given Documented By: LENARD Non-Admin Reason: NPO Lisinopril (Lisinopril 10 Mg Tablet) 10 mg PO DAILY [facility]; Protocol Magnesium Hydroxide (Milk Of Magnesia 30 Ml Oral.Susp) 30 ml PO DAILY PRN PRN Reason: Constipation Melatonin (Melatonin 3 Mg Tablet) 6 mg PO BEDTIME PRN PRN Reason: Insomnia Pantoprazole Sodium (Pantoprazole Sodium 40 Mg/10 Ml Vial) 40 mg IVPUSH BID@0688,6160 [facility] Last Admin: 03/21/24 06:28 Dose: 40 mg Documented By: NALLELY Sodium Chloride (0.9 % Sodium Chloride Flush 3 Ml Syringe) 3 ml IVFLUSH QSHIFT [facility] Last Admin: 03/21/24 09:14 Dose: 3 ml Documented By: DEWAYNE Labs 03/21/24 05:44 03/21/24 05:44 Labs: Laboratory Results - last 24 hr 03/20/24 03/20/24 03/20/24 18:27 21:08 21:19 MCV 88.2 MCH 29.4 MCHC 33.3 RDW 14.8 Plt Count 178 MPV 9.6 Immature Gran % (Auto) 0.2 Neut % (Auto) 68.8 Lymph % (Auto) 20.7 [place] % (Auto) 9.1 Eos % (Auto) 0.8 Baso % (Auto) 0.4 Lymph # (Auto) 1.0 L [place] # (Auto) 0.4 Eos # (Auto) 0.0 Baso # (Auto) 0.0 Abs Immat Gran (auto) 0.01 Absolute Neuts (auto) 3.3 Absolute Nucleated RBC 0.000 Nucleated RBC % (auto) 0.0 PT 30.9 H INR 2.5 H Anion Gap 14 Estim Creat Clear Calc 43.0 Estimated GFR > 60 POC Glucose Random Glucose 197 H Calcium 9.6 Magnesium 1.5 L Iron 16 L TIBC 225 L % Saturation 7 L Unsat Iron Binding 209 Ferritin 9 L Total Bilirubin 0.3 AST 25 ALT 22 Alkaline Phosphatase 80 Total Creatine Kinase 55 Troponin I High Sens 8.0 Total Protein 6.1 L Albumin 3.6 Lipase 45 Urine Color Yellow Urine Appearance Clear Urine pH 5.5 Ur Specific Porter 1.010 Urine Protein Negative Urine Glucose (UA) Negative Urine Ketones Negative Urine Blood Negative Urine Nitrite Negative Ur Leukocyte Esterase Negative Influenza Type A (PCR) NEGATIVE Influenza Type B (PCR) NEGATIVE RSV RNA Qual (PCR) NEGATIVE SARS-CoV-2 RNA (RT-PCR) NEGATIVE Blood Type O Positive Antibody Screen NEGATIVE Crossmatch See Detail 03/21/24 03/21/24 05:44 11:32 MCV 87.0 MCH 28.8 MCHC 33.1 RDW 15.0 Plt Count 176 MPV 9.5 Immature Gran % (Auto) 0.2 Neut % (Auto) 61.6 Lymph % (Auto) 26.3 [place] % (Auto) 10.5 Eos % (Auto) 0.9 Baso % (Auto) 0.5 Lymph # (Auto) 1.1 L [place] # (Auto) 0.5 Eos # (Auto) 0.0 Baso # (Auto) 0.0 Abs Immat Gran (auto) 0.01 Absolute Neuts (auto) 2.7 Absolute Nucleated RBC 0.000 Nucleated RBC % (auto) 0.0 PT 31.2 H INR 2.6 H Anion Gap 15 Estim Creat Clear Calc 51.7 Estimated GFR > 60 POC Glucose 155 H Random Glucose 125 H Calcium 9.4 Magnesium Iron TIBC % Saturation Unsat Iron Binding Ferritin Total Bilirubin AST ALT Alkaline Phosphatase Total Creatine Kinase Troponin I High Sens Total Protein Albumin Lipase Urine Color Urine Appearance Urine pH Ur Specific [place] Urine Protein Urine Glucose (UA) Urine Ketones Urine Blood Urine Nitrite Ur Leukocyte Esterase Influenza Type A (PCR) Influenza Type B (PCR) RSV RNA Qual (PCR) SARS-CoV-2 RNA (RT-PCR) Blood Type Antibody Screen Crossmatch Assessment and Plan (1) Weakness: Status: Acute (2) Hypomagnesemia: Status: Acute (3) Acute anemia: Status: Acute (4) Acute GI bleeding: Status: Acute Plan 83-year-old male with history of paroxysmal atrial fibrillation anticoagulated with Coumadin, history of alcohol use disorder in remission, pha-[id number] type 2 diabetes, coronary artery disease s/p CABG, ischemic cardiomyopathy s/p AICD placement, hyperlipidemia, hypertension admitted for further evaluation and management of acute GI bleeding # acute blood loss anemia secondary to suspected GI bleed Hb improved to 9.3 after 1 unit PRBCs low iron studies, ferritin IV PPI clear liquid diet, NPO post midnight GI input appreciated, EGD and colonoscopy tomorrow hold Coumadin, aspirin monitor on telemetry start iron supplement # acute hypomagnesemia IV replacement given, improved Continue magnesium oxide p.o. # paroxysmal atrial fibrillation rate controlled hold Coumadin # jul-hvoynne-eqxzswcxr type 2 diabetes POC glucose, diabetic diet Humalog on sliding scale # coronary artery disease/ischemic cardiomyopathy hold aspirin. Continue statin # hypertension hold carvedilol and lisinopril in setting of GI bleed DVT prophylaxis- SCDs DNR/DNI Patient requires inpatient stay overnight for management of acute blood loss anemia secondary to suspected GI bleed requiring blood transfusion, close monitoring of hemoglobin/hematocrit and Endoscopies Quality Stroke Does the patient have a stroke diagnosis?: No VTE Prior VTE?: No VTE Risk Level:: Medical - moderate - high VTE Device Contraindication: N/A - Device Ordered VTE Drug Contraindication: Treatment Not Indicated
[2024-03-21] MEDS: PEG 3350/Na Sulf,Bicarb,Cl/KCL 4,000 ML SOLN.RECON 4000 ML PO (15:47)
[2024-03-21 16:01] LABS: Glucose, Whole Blood 222 mg/dL (60-115)
[2024-03-21] MEDS: Insulin Lispro 100 UNIT/ML 3 ML VIAL SUBCUT (16:14)
[2024-03-21 16:16] LABS: OBS Int Ctl Valid YES; OBS1 POSITIVE (NEGATIVE)
[2024-03-21 18:07] LABS: Hematocrit 30.3 % (42.0-52.0); Mean Corpuscular Hemoglobin 28.8 pg (27.0-33.0); Mean Corpuscular Volume 87.3 fL (80.0-98.0); Mean Platelet Volume 9.7 fL (9.4-12.4); Platelet Count 175 X10*3/uL (160-400); Red Blood Count 3.47 X10*6/uL (4.60-5.80); Red Cell Distribution Width 15.5 % (11.0-16.0); White Blood Count 4.2 X10*3/uL (4.8-10.8)
[2024-03-21] MEDS: ondansetron HCL 4 MG/2 ML VIAL IVPUSH (18:17)
--- NOTE | 2024-03-21 18:19 | PC.NURSE ---
PT C/O DIZZINESS, NAUSEA. 1/[address] COMPLETE WITH GAVILYTE. NO CHANGE IN SKIN COLOUR, HAS HAD ONE TARRY BM TODAY SINCE 11AM. HOSPITALIST CONTACTED, CBC ENTERED WITH LADY TIWARI. WTCM.
[2024-03-21 23:05] LABS: Glucose, Whole Blood 158 mg/dL (60-115)
[2024-03-22] VITALS (12 sets, daily range): BP systolic 98–160; BP diastolic 50–80; PULSE 59–77; RESP 15–21; TEMP 36–37.2; O2SAT 91–100
[2024-03-22] MEDS: Pantoprazole Sodium 40 MG/10 ML VIAL IVPUSH (05:28)
--- NOTE | 2024-03-22 05:30 | PC.NURSE ---
pt refuses 2 units lispro and completing GoLytely. approx 2/3 consumed. BM still black and watery. aware.
[2024-03-22 06:56] LABS: Hematocrit 32.4 % (42.0-52.0); Hemoglobin 10.7 g/dl (14.0-18.0); Mean Corpuscular Hemoglobin 29.1 pg (27.0-33.0); Mean Platelet Volume 9.6 fL (9.4-12.4); Platelet Count 213 X10*3/uL (160-400); Red Blood Count 3.68 X10*6/uL (4.60-5.80); Red Cell Distribution Width 15.2 % (11.0-16.0); White Blood Count 6.2 X10*3/uL (4.8-10.8)
[2024-03-22 06:59] LABS: INTERNATIONAL NORM RATIO 1.4 (0.9-1.1); Prothrombin Time 17.3 SEC (11.1-13.3)
[2024-03-22 07:06] LABS: Anion Gap 13 (12-20); Blood Urea Nitrogen 14 mg/dL (9-16); Calcium 9.5 mg/dL (8.4-10.2); Carbon Dioxide 27 mmol/L (22-29); Chloride 102 mmol/L (96-108); Creatinine Clr Calc Pharmacy 48.2; Estimated Glomerular Filt Rate > 60; Glucose Random 162 mg/dL (60-115); Potassium 4.2 mmol/L (3.3-5.1); Sodium 138 mmol/L (135-145)
[2024-03-22 07:49] LABS: Glucose, Whole Blood 190 mg/dL (60-115)
[2024-03-22] MEDS: carvediloL 12.5 MG TABLET PO (08:26)
[2024-03-22] MEDS: Atorvastatin Calcium 40 MG TABLET PO (08:26)
--- NOTE | 2024-03-22 09:02 | PC.NURSE ---
Patient coming to [facility] for a colonoscopy later today. Report obtained from Bon XAVIER. Per him, patient finished about half of golytley yesterday and still having black tarry stool today. Per Bon, patient refusing an enema. Patients INR today is 1.4 Dr. Roa made aware of everything. Will proceed per him.
[2024-03-22 11:31] LABS: Glucose, Whole Blood 158 mg/dL (60-115)
--- NOTE | 2024-03-22 11:40 | HO.PM.IMPN ---
Subjective Subjective Date of Service: 03/22/24 Interval History: seen and evaluated this morning no reported bleeding Hb improved to around 10 had colon prep overnight Review of Systems Review of Systems: Yes all other systems are reviewed and are negative Physical Exam Vital Signs: Vital Signs: Last Vital Signs Temp 97.0 F 03/22/24 07:53 Pulse 59 03/22/24 07:53 Resp 18 03/22/24 07:53 BP 139/68 03/22/24 07:53 Pulse Ox 99 03/22/24 07:53 O2 Del Method Room Air 03/22/24 07:53 BMI result Body Mass Index 23.3 Const: Other: Constitutional : interactive, not in distress Cardiovascular : no JVP, no lower extremity edema Respiratory : bilateral chest movement, not in resp distress Gastrointestinal: soft, lax, Non tender Skin : Warm, Dry Neurological : Alert & oriented to self and place , No focal deficit Objective Data Active Medications Acetaminophen (Acetaminophen 325 Mg Tablet) 650 mg PO Q6H PRN PRN Reason: Pain, Mild (Pain Scale 1-3), fever or headache Atorvastatin Calcium (Atorvastatin Calcium 40 Mg Tablet) 40 mg PO DAILY [facility] Last Admin: 03/22/24 08:26 Dose: 40 mg Documented By: ETELVINA Calcium Carbonate (Calcium Carbonate 750 Mg Tab.Chew) 750 mg PO Q4H PRN PRN Reason: Heartburn Carvedilol (Carvedilol 12.5 Mg Tablet) 12.5 mg PO DAILY [facility]; Protocol Last Admin: 03/22/24 08:26 Dose: 12.5 mg Documented By: ETELVINA Furosemide (Furosemide 20 Mg Tablet) 20 mg PO DAILY [facility]; Protocol Insulin Human Lispro (Insulin Lispro 100 Unit/Ml 3 Ml Vial) 0 unit SUBCUT QIDACHS [facility]; Protocol Last Admin: 03/22/24 11:37 Dose: Not Given Documented By: ETELVINA Non-Admin Reason: Patient Refused Magnesium Hydroxide (Milk Of Magnesia 30 Ml Oral.Susp) 30 ml PO DAILY PRN PRN Reason: Constipation Melatonin (Melatonin 3 Mg Tablet) 6 mg PO BEDTIME PRN PRN Reason: Insomnia Ondansetron HCl (Ondansetron Hcl 4 Mg/2 Ml Vial) 4 mg IVPUSH Q8H PRN PRN Reason: Nausea and Vomiting Last Admin: 03/21/24 18:17 Dose: 4 mg Documented By: LENARD Pantoprazole Sodium (Pantoprazole Sodium 40 Mg/10 Ml Vial) 40 mg IVPUSH BID@0630,1630 [facility] Last Admin: 03/22/24 05:28 Dose: 40 mg Documented By: PRIYANKA Sodium Chloride (0.9 % Sodium Chloride Flush 3 Ml Syringe) 3 ml IVFLUSH QSHIFT [facility] Last Admin: 03/22/24 11:13 Dose: Not Given Documented By: ETELVINA Non-Admin Reason: Previously Administered Labs 03/22/24 06:27 03/22/24 06:27 Labs: Laboratory Results - last 24 hr 03/21/24 03/21/24 03/21/24 15:56 16:09 17:42 MCV 87.3 MCH 28.8 MCHC 33.0 RDW 15.5 Plt Count 175 MPV 9.7 Absolute Nucleated RBC 0.000 Nucleated RBC % (auto) 0.0 PT INR Anion Gap Estim Creat Clear Calc Estimated GFR POC Glucose 222 H Random Glucose Calcium Stool Occult Blood POSITIVE 03/21/24 03/22/24 03/22/24 23:02 06:27 07:42 MCV 88.0 MCH 29.1 MCHC 33.0 RDW 15.2 Plt Count 213 MPV 9.6 Absolute Nucleated RBC 0.000 Nucleated RBC % (auto) 0.0 PT 17.3 H D INR 1.4 H Anion Gap 13 Estim Creat Clear Calc 48.2 Estimated GFR > 60 POC Glucose 158 H 190 H Random Glucose 162 H Calcium 9.5 Stool Occult Blood 03/22/24 11:13 MCV MCH MCHC RDW Plt Count MPV Absolute Nucleated RBC Nucleated RBC % (auto) PT INR Anion Gap Estim Creat Clear Calc Estimated GFR POC Glucose 158 H Random Glucose Calcium Stool Occult Blood Assessment and Plan (1) Weakness: Status: Acute (2) Hypomagnesemia: Status: Acute (3) Acute anemia: Status: Acute (4) Acute GI bleeding: Status: Acute Plan 83-year-old male with history of paroxysmal atrial fibrillation anticoagulated with Coumadin, history of alcohol use disorder in remission, tak-dsomnkt-[id number] type 2 diabetes, coronary artery disease s/p CABG, ischemic cardiomyopathy s/p AICD placement, hyperlipidemia, hypertension admitted for further evaluation and management of acute GI bleeding # acute blood loss anemia secondary to suspected GI bleed Hb improved to 10 after 1 unit PRBCs low iron studies, ferritin , start Ferrous sulphate IV PPI NPO for studies today GI input appreciated, EGD and colonoscopy tomorrow hold Coumadin, aspirin monitor on telemetry # acute hypomagnesemia IV replacement given, improved Continue magnesium oxide p.o. # paroxysmal atrial fibrillation rate controlled hold Coumadin # lxk-dmeswyq-fbospasbk type 2 diabetes POC glucose, diabetic diet Humalog on sliding scale # coronary artery disease/ischemic cardiomyopathy hold aspirin. Continue statin # hypertension hold carvedilol and lisinopril in setting of GI bleed DVT prophylaxis- SCDs DNR/DNI Patient requires inpatient stay overnight for management of acute blood loss anemia secondary to suspected GI bleed requiring blood transfusion, close monitoring of hemoglobin/hematocrit and Endoscopies Quality Stroke Does the patient have a stroke diagnosis?: No VTE Prior VTE?: No VTE Risk Level:: Medical - moderate - high VTE Device Contraindication: N/A - Device Ordered VTE Drug Contraindication: Treatment Not Indicated
--- NOTE | 2024-03-22 13:00 | HO.ANESPROP2 ---
HPI - Anesthesia Eval Consult details Narrative: 83 yo M admitted with GI bleed. Scheduled for EGD amd colon. Has an AICD. Pacer dependent, A-paced at baseline. DNR/DNI. [facility] Active Problems Active Problems: All Active Problems Weakness (Acute) Hypomagnesemia (Acute) Acute anemia (Acute) Acute GI bleeding (Acute) Hematuria of undiagnosed cause (Acute) Atrial fibrillation (Acute) Current use of anticoagulant therapy (Acute) Past Medical History Medical History History of alcohol abuse Ischemic cardiomyopathy with implantable cardioverter-defibrillator (ICD) Hyperlipidemia HTN (hypertension) Diabetes mellitus CAD (coronary artery disease) Atrial fibrillation Family History Family history of problems with anesthesia: No Surgical History History of Problems with Anesthesia: No Social History Social History Household Members: None Housing: House Housing Other:: [facility] [employer] [facility] Do you presently have visiting nurse or other home services: Yes Alcohol intake: former Patient Tobacco Use Status: Never used Tobacco Smoked in Last 30 Days: No Use of substances other than those prescribed or required for medical reasons: No Currently Displaying Signs/Symptoms of Drug Intoxication Withdrawal: No Any prior treatment program specific to substance use: No Have you been hit, kicked, punched, or otherwise hurt by someone within the past year? If so, by whom?: No Do you feel safe in your current relationship?: No Current Relationship Is there a partner from a previous relationship who is making you feel unsafe now?: No Are you made to feel afraid or neglected: No Advance Directives: Yes Advance Directives on File: Yes Advance Directives Date on File: 08/16/23 Do you have a plan to hurt others: No Plan Recently lost weight without trying: No How much weight loss: Not applicable Eating poorly because of decreased appetite: No Nutrition screen score: 0 Nutrition Risks: No Nutritional Risk Poor oral hygiene: No service: No Current occupation: RETIRED 20 YEARS Current occupational exposures/hazards: No Meds Allergies Allergy/AdvReac Type Severity Reaction Status Date / Time isosorbide AdvReac Unknown dizziness Verified 03/20/24 18:17 Active Medications: Current Medications Acetaminophen (Acetaminophen 325 Mg Tablet) 650 mg PO Q6H PRN PRN Reason: Pain, Mild (Pain Scale 1-3), fever or headache Atorvastatin Calcium (Atorvastatin Calcium 40 Mg Tablet) 40 mg PO DAILY [facility] Last Admin: 03/22/24 08:26 Dose: 40 mg Calcium Carbonate (Calcium Carbonate 750 Mg Tab.Chew) 750 mg PO Q4H PRN PRN Reason: Heartburn Carvedilol (Carvedilol 12.5 Mg Tablet) 12.5 mg PO DAILY [facility]; Protocol Last Admin: 03/22/24 08:26 Dose: 12.5 mg Ferrous Sulfate (Ferrous Sulfate 324 Mg Tablet.Dr) 324 mg PO BIDWM [facility] Furosemide (Furosemide 20 Mg Tablet) 20 mg PO DAILY [facility]; Protocol Insulin Human Lispro (Insulin Lispro 100 Unit/Ml 3 Ml Vial) 0 unit SUBCUT QIDACHS [facility]; Protocol Last Admin: 03/22/24 11:37 Dose: Not Given Magnesium Hydroxide (Milk Of Magnesia 30 Ml Oral.Susp) 30 ml PO DAILY PRN PRN Reason: Constipation Melatonin (Melatonin 3 Mg Tablet) 6 mg PO BEDTIME PRN PRN Reason: Insomnia Ondansetron HCl (Ondansetron Hcl 4 Mg/2 Ml Vial) 4 mg IVPUSH Q8H PRN PRN Reason: Nausea and Vomiting Last Admin: 03/21/24 18:17 Dose: 4 mg Pantoprazole Sodium (Pantoprazole Sodium 40 Mg/10 Ml Vial) 40 mg IVPUSH BID@0630,1630 [facility] Last Admin: 03/22/24 05:28 Dose: 40 mg Sodium Chloride (0.9 % Sodium Chloride Flush 3 Ml Syringe) 3 ml IVFLUSH QSHIFT [facility] Last Admin: 03/22/24 11:13 Dose: Not Given Home Medications ?Medication ?Instructions ?Recorded ?Confirmed ?Last Taken ?Type aspirin 81 mg tablet,delayed 81 mg PO DAILY 06/14/23 03/21/24 Unknown History release (Adult Aspirin Regimen) lisinopril 10 mg tablet 10 mg PO DAILY 06/14/23 03/21/24 Unknown History warfarin 5 mg tablet 5 mg PO .COMPLEX 06/14/23 03/21/24 03/20/24 History metformin 500 mg tablet 1,000 mg PO BID 07/08/23 03/21/24 Unknown History magnesium oxide 400 mg (241.3 mg 400 mg PO BID 10/22/23 03/21/24 Unknown History magnesium) tablet carvedilol 12.5 mg tablet 12.5 mg PO DAILY 03/21/24 03/21/24 Unknown History furosemide 20 mg tablet 20 mg PO DAILY 03/21/24 03/21/24 Unknown History Exam Exam Date and Time: March 22, 2024 1255 Height,Weight and Vital Signs: Height 5 ft 5 in Weight 63.503 kg Last Vital Signs Temp 98.0 F 03/22/24 11:46 Pulse 60 03/22/24 11:46 Resp 18 03/22/24 11:46 BP 128/69 03/22/24 11:46 Pulse Ox 97 03/22/24 11:46 O2 Del Method Room Air 03/22/24 11:46 Pertinent Lab Results Pertinent Lab Results: Laboratory Tests 03/20/24 03/20/24 03/20/24 18:27 21:08 21:19 WBC 4.7 L RBC 2.62 L D Hgb 7.7 L D Hct 23.1 L D MCV 88.2 MCH 29.4 MCHC 33.3 RDW 14.8 Plt Count 178 MPV 9.6 Immature Gran % (Auto) 0.2 Neut % (Auto) 68.8 Lymph % (Auto) 20.7 [place] % (Auto) 9.1 Eos % (Auto) 0.8 Baso % (Auto) 0.4 Lymph # (Auto) 1.0 L [place] # (Auto) 0.4 Eos # (Auto) 0.0 Baso # (Auto) 0.0 Abs Immat Gran (auto) 0.01 Absolute Neuts (auto) 3.3 Absolute Nucleated RBC 0.000 Nucleated RBC % (auto) 0.0 PT 30.9 H INR 2.5 H Sodium 135 Potassium 4.5 Chloride 103 Carbon Dioxide 23 Anion Gap 14 BUN 31 H Creatinine 1.13 Estim Creat Clear Calc 43.0 Estimated GFR > 60 POC Glucose Random Glucose 197 H Calcium 9.6 Magnesium 1.5 L Iron 16 L TIBC 225 L % Saturation 7 L Unsat Iron Binding 209 Ferritin 9 L Total Bilirubin 0.3 AST 25 ALT 22 Alkaline Phosphatase 80 Total Creatine Kinase 55 Troponin I High Sens 8.0 Total Protein 6.1 L Albumin 3.6 Lipase 45 Urine Color Yellow Urine Appearance Clear Urine pH 5.5 Ur Specific [place] 1.010 Urine Protein Negative Urine Glucose (UA) Negative Urine Ketones Negative Urine Blood Negative Urine Nitrite Negative Ur Leukocyte Esterase Negative Stool Occult Blood Influenza Type A (PCR) NEGATIVE Influenza Type B (PCR) NEGATIVE RSV RNA Qual (PCR) NEGATIVE SARS-CoV-2 RNA (RT-PCR) NEGATIVE Blood Type O Positive Antibody Screen NEGATIVE Crossmatch See Detail 03/21/24 03/21/24 03/21/24 05:44 11:32 15:56 WBC 4.3 L RBC 3.23 L D Hgb 9.3 L D Hct 28.1 L D MCV 87.0 MCH 28.8 MCHC 33.1 RDW 15.0 Plt Count 176 MPV 9.5 Immature Gran % (Auto) 0.2 Neut % (Auto) 61.6 Lymph % (Auto) 26.3 [place] % (Auto) 10.5 Eos % (Auto) 0.9 Baso % (Auto) 0.5 Lymph # (Auto) 1.1 L [place] # (Auto) 0.5 Eos # (Auto) 0.0 Baso # (Auto) 0.0 Abs Immat Gran (auto) 0.01 Absolute Neuts (auto) 2.7 Absolute Nucleated RBC 0.000 Nucleated RBC % (auto) 0.0 PT 31.2 H INR 2.6 H Sodium 140 Potassium 4.1 Chloride 105 Carbon Dioxide 24 Anion Gap 15 BUN 26 H Creatinine 0.94 Estim Creat Clear Calc 51.7 Estimated GFR > 60 POC Glucose 155 H 222 H Random Glucose 125 H Calcium 9.4 Magnesium Iron TIBC % Saturation Unsat Iron Binding Ferritin Total Bilirubin AST ALT Alkaline Phosphatase Total Creatine Kinase Troponin I High Sens Total Protein Albumin Lipase Urine Color Urine Appearance Urine pH Ur Specific [place] Urine Protein Urine Glucose (UA) Urine Ketones Urine Blood Urine Nitrite Ur Leukocyte Esterase Stool Occult Blood Influenza Type A (PCR) Influenza Type B (PCR) RSV RNA Qual (PCR) SARS-CoV-2 RNA (RT-PCR) Blood Type Antibody Screen Crossmatch 03/21/24 03/21/24 03/21/24 16:09 17:42 23:02 WBC 4.2 L RBC 3.47 L Hgb 10.0 L Hct 30.3 L MCV 87.3 MCH 28.8 MCHC 33.0 RDW 15.5 Plt Count 175 MPV 9.7 Immature Gran % (Auto) Neut % (Auto) Lymph % (Auto) [place] % (Auto) Eos % (Auto) Baso % (Auto) Lymph # (Auto) [place] # (Auto) Eos # (Auto) Baso # (Auto) Abs Immat Gran (auto) Absolute Neuts (auto) Absolute Nucleated RBC 0.000 Nucleated RBC % (auto) 0.0 PT INR Sodium Potassium Chloride Carbon Dioxide Anion Gap BUN Creatinine Estim Creat Clear Calc Estimated GFR POC Glucose 158 H Random Glucose Calcium Magnesium Iron TIBC % Saturation Unsat Iron Binding Ferritin Total Bilirubin AST ALT Alkaline Phosphatase Total Creatine Kinase Troponin I High Sens Total Protein Albumin Lipase Urine Color Urine Appearance Urine pH Ur Specific [place] Urine Protein Urine Glucose (UA) Urine Ketones Urine Blood Urine Nitrite Ur Leukocyte Esterase Stool Occult Blood POSITIVE Influenza Type A (PCR) Influenza Type B (PCR) RSV RNA Qual (PCR) SARS-CoV-2 RNA (RT-PCR) Blood Type Antibody Screen Crossmatch 03/22/24 03/22/24 03/22/24 06:27 07:42 11:13 WBC 6.2 RBC 3.68 L Hgb 10.7 L Hct 32.4 L MCV 88.0 MCH 29.1 MCHC 33.0 RDW 15.2 Plt Count 213 MPV 9.6 Immature Gran % (Auto) Neut % (Auto) Lymph % (Auto) [place] % (Auto) Eos % (Auto) Baso % (Auto) Lymph # (Auto) [place] # (Auto) Eos # (Auto) Baso # (Auto) Abs Immat Gran (auto) Absolute Neuts (auto) Absolute Nucleated RBC 0.000 Nucleated RBC % (auto) 0.0 PT 17.3 H D INR 1.4 H Sodium 138 Potassium 4.2 Chloride 102 Carbon Dioxide 27 Anion Gap 13 BUN 14 Creatinine 1.01 Estim Creat Clear Calc 48.2 Estimated GFR > 60 POC Glucose 190 H 158 H Random Glucose 162 H Calcium 9.5 Magnesium Iron TIBC % Saturation Unsat Iron Binding Ferritin Total Bilirubin AST ALT Alkaline Phosphatase Total Creatine Kinase Troponin I High Sens Total Protein Albumin Lipase Urine Color Urine Appearance Urine pH Ur Specific [place] Urine Protein Urine Glucose (UA) Urine Ketones Urine Blood Urine Nitrite Ur Leukocyte Esterase Stool Occult Blood Influenza Type A (PCR) Influenza Type B (PCR) RSV RNA Qual (PCR) SARS-CoV-2 RNA (RT-PCR) Blood Type Antibody Screen Crossmatch Airway Mallampati Class: II TM Dist: >3cm Neck ROM: Full Loose/Missing/Broken Teeth: Yes (chipped front tooth #9) Heart: S1S2 Lungs: CTAB Assessment and Plan Assessment Anesthesia Assessment: Anesthesia Plan Discussed and Chart Reviewed Final Anesthetic Review Family History of Problems with Anesthesia: No History of Problems with Anesthesia: No NPO: Yes ASA Class: IV Final Preanesthetic Review: No Changes in Pt Med Stat, Meds/Allgs Chart Reviewed, Consent Obtained/Reviewed, Anes Risks/Benef Reviewed and DNR Form (If Appl.) (DNR/DNI reversed until discharge from PACU back to patient's room) Patient Risk: High Procedure Risk: Low Anesthetic Plan Anesthetic Plan: MAC: and Agree w/ Assess. and Plan Disposition: Standard PACU
--- NOTE | 2024-03-22 13:21 | MHC.CM.PN ---
Pt having endoscopy and colonscopy today, may DC later, DCP is home with [facility], referral in, CM to follow for DC needs.
--- NOTE | 2024-03-22 14:22 | P.BOP_ITS ---
Brief Operative Note Date of Service: 03/22/24 Pre-op diagnosis: iron def anemia Post-op diagnosis: same Procedure: EGD colonoscopy Surgeon: Rainer Roa MD Anesthesia: MAC Was an Embossing Machine Operator Helper used for this Procedure?: No Estimated blood loss (mL): 2 Pathology: other Condition: stable Disposition: PACU
--- NOTE | 2024-03-22 14:23 | PM.EVENT ---
Event Note Date of Service: 03/22/24 Event Note: EGD Colonoscopy EGD shows mild gastritis Colonoscopy WNL Rec: oral ppi f/u bx results resume anticoagulation iron supplementation capsule endoscopy as outpatient if signs of recurrent MATA/gi blood loss. Time Spent With Patient Time: Total time managing care of this patient today ____ minutes.
--- NOTE | 2024-03-22 14:39 | OP_ITS ---
DATE OF SERVICE: 03/22/2024 SURGEON: Rainer Roa MD INDICATIONS: Iron deficiency anemia. PREOPERATIVE DIAGNOSIS: POSTOPERATIVE DIAGNOSIS: PROCEDURE PERFORMED: 1. Upper endoscopy with biopsy. 2. Colonoscopy to the terminal ileum. ESTIMATED BLOOD LOSS: COMPLICATIONS: ANESTHESIA: Monitored anesthesia care. ASSISTANTS: SPECIMENS: DESCRIPTION OF PROCEDURE: A history and physical was performed. The risks and benefits of the procedure were explained to the patient. Informed consent was obtained. The patient was placed in the left lateral decubitus position. The Olympus video gastroscope was introduced into the esophagus, stomach, and duodenum. Examination was performed. The scope was removed. He was repositioned for colonoscopy. A digital rectal exam was performed and was found to be normal. The Olympus pediatric video colonoscope was introduced into the rectum and advanced to the cecum. The cecum was identified by transillumination, palpation, and identification of ileocecal valve. Examination was performed. The scope was removed. He tolerated both procedures well and was returned to the recovery area in stable condition. FINDINGS: Upper endoscopy: 1. Esophagus: The esophagus showed no evidence of esophagitis. 2. Stomach: The stomach showed mild erythema with no ulceration or bleeding. Biopsies were obtained from the antrum. The findings were consistent with gastritis 3. Duodenum. The bulb and 2nd portion were normal. Colonoscopy: The terminal ileum was examined and appeared normal. The visualized colonic mucosa was within normal limits without evidence of masses or ulcers. No polyps were identified. There was some liquid stool limiting the sensitivity examination for detection of small polyps. This was washed and suctioned as best possible. Retroflexed examination was normal. IMPRESSION: 1. Mild patchy gastritis. 2. Normal colonoscopy. RECOMMENDATION: 1. Follow up the biopsy results. 2. Oral proton pump inhibitor. 3. Anticoagulation with warfarin may be resumed. 4. If persistent anemia or signs of GI blood loss, consider small bowel capsule endoscopy. MD MONICA Huston/ALANA / [phone] MTDD
--- NOTE | 2024-03-22 15:12 | MHC.CM.PN ---
CM spoke to pt.'s dtr, she had requested [facility] services at [place] for pt because he lives alone, has no services, and prior to hosp stay, would be very weak and unstable, and not ask for her assistance, she lives in [place]. Task in for [facility] for home care services, VNA request incl. SW to explore ongoing supportive services for pt.
[2024-03-22 16:36] LABS: Glucose, Whole Blood 276 mg/dL (60-115)
[2024-03-22] MEDS: Ferrous Sulfate 324 MG TABLET.DR PO (17:17)
[2024-03-22 20:27] LABS: Glucose, Whole Blood 348 mg/dL (60-115)
[2024-03-22] MEDS: Insulin Lispro 100 UNIT/ML 3 ML VIAL SUBCUT (21:13)
[2024-03-23] VITALS: BP 140/73; PULSE 59; RESP 20; TEMP 36.8; O2SAT 96
[2024-03-23 04:00] VITALS: BP 140/60; PULSE 60; RESP 20; TEMP 36.1; O2SAT 97
[2024-03-23] MEDS: Omeprazole 20 MG CAPSULE.DR PO (05:55)
[2024-03-23 06:59] LABS: Hematocrit 27.9 % (42.0-52.0); Hemoglobin 9.1 g/dl (14.0-18.0); Mean Corpuscular HGB Conc 32.6 g/dl (31.0-36.0); Mean Corpuscular Hemoglobin 28.8 pg (27.0-33.0); Mean Corpuscular Volume 88.3 fL (80.0-98.0); Mean Platelet Volume 9.5 fL (9.4-12.4); Platelet Count 193 X10*3/uL (160-400); Red Blood Count 3.16 X10*6/uL (4.60-5.80); Red Cell Distribution Width 15.1 % (11.0-16.0); White Blood Count 5.2 X10*3/uL (4.8-10.8)
[2024-03-23 07:22] LABS: Anion Gap 14 (12-20); Blood Urea Nitrogen 11 mg/dL (9-16); Calcium 8.7 mg/dL (8.4-10.2); Carbon Dioxide 28 mmol/L (22-29); Chloride 104 mmol/L (96-108); Creatinine Clr Calc Pharmacy 45.9; Estimated Glomerular Filt Rate > 60; Glucose Random 120 mg/dL (60-115); Potassium 4.7 mmol/L (3.3-5.1); Sodium 141 mmol/L (135-145)
[2024-03-23 07:48] LABS: Glucose, Whole Blood 136 mg/dL (60-115)
[2024-03-23 08:00] VITALS: BP 126/64; PULSE 60; RESP 17; TEMP 36.4; O2SAT 96
[2024-03-23] MEDS: Ferrous Sulfate 324 MG TABLET.DR PO (08:10)
[2024-03-23] MEDS: carvediloL 12.5 MG TABLET PO (08:11)
[2024-03-23] MEDS: 0.9 % Sodium Chloride Flush 3 ML SYRINGE IVFLUSH (08:11)
[2024-03-23] MEDS: Atorvastatin Calcium 40 MG TABLET PO (08:11)
[2024-03-23] MEDS: Furosemide 20 MG TABLET PO (08:11)
--- NOTE | 2024-03-23 11:40 | P.DS_ITS ---
DS: Providers Provider Date of Service: 03/23/24 Date of admission: 03/20/24 20:23 Date of discharge: 03/23/24 Primary care physician: Ria Bryant MD Consults: 03/20/24 20:23 Consult to Gastroenterology Routine Consulting Provider: Rainer Roa Reason for consultation: gi bleed Attending physician on discharge: Prasad [facility] Discharging clinician: Christin Ortiz DS: Diagnosis Discharge Diagnosis (1) Weakness: Status: Acute (2) Hypomagnesemia: Status: Acute (3) Acute anemia: Status: Acute (4) Acute GI bleeding: Status: Acute DS: Summary Hospital Course Hospital Course: From H&P on the day of admission 83-year-old male with history of paroxysmal atrial fibrillation anticoagulated with Coumadin, history of alcohol use disorder in remission, [id number] type 2 diabetes, coronary artery disease s/p CABG, ischemic cardiomyopathy s/p AICD placement, hyperlipidemia, hypertension presented to the ED earlier today accompanied by his daughter, Kelly, for evaluation of generalized weakness, positional lightheadedness, and shortness of breaths describes it as air hunger ongoing for the last 3 days. He has also had poor appetite and nausea and daughter reports he has not been eating much in recent months. He has been experiencing cramping to the bilateral thighs especially when walking. He has been told in recent weeks that his magnesium was low and was started on magnesium oxide twice daily which he has been compliant with. Despite supplementation, has not felt much better. Denies fevers, chills, headache, abdominal pain, nausea, vomiting, diarrhea, co nstipation, melena, hematochezia, hematuria, dysuria, palpitations, or chest pain. Since arrival, vital signs are stable. He has a normocytic anemia with H/H 7.7/23.1% (baseline 10.5/32.9% in 07/2023). Creatinine baseline, BUN slightly bumped at 31, electrolyte levels normal. Glucose 197. Troponin undetectable but within normal limits. INR 2.5. Head CT negative for acute intracranial abnormality. CXR unremarkable. Patient will be admitted for further evaluation and management of acute GI bleed. acute blood loss anemia secondary to suspected GI bleed Hb improved to 10 after 1 unit PRBCs low iron studies, ferritin, started on Ferrous sulfate. seen by GI and underwent EGD and colonoscopy. Initially aspirin and Coumadin were placed on hold. Colonoscopy was unremarkable, EGD showed mild gastritis, recommended iron supplementation, oral PPI, okay to resume anticoagulation. Would recommend outpatient capsule endoscopy if signs of recurrent GI blood loss. Was ambulating in room without assistance prior to discharge without dizziness or shortness of breath. H/H did drift down slightly, but no evidence of active bleeding. As stated above symptoms have resolved. Would recommend outpatient repeat CBC in the next 1 week. Recommend outpatient follow-up with PCP. Time Attestation Discharge Coordination Time (in mins): 32 Quality: Safe Use of Opioids Does Pt have an Active Cancer Diagnosis on the Problem List?: No Quality: Stroke Does the patient have a stroke diagnosis?: No Physical Exam Vital Signs: Vital Signs: Last Vital Signs Temp 97.5 F 03/23/24 08:00 Pulse 60 03/23/24 08:00 Resp 17 03/23/24 08:00 BP 126/64 03/23/24 08:00 Pulse Ox 96 03/23/24 08:00 O2 Del Method Room Air 03/23/24 08:00 BMI result Body Mass Index 23.3 Const: General: cooperative, comfortable, no acute distress, alert and awake Orientation/consciousness: patient oriented x3 Resp: Effort & Inspection: normal respiratory effort Cardio: Rate: regular rate Neuro: General: patient oriented x3 DS: Data Data Completed and Pending Pending studies at discharge: Pending at discharge 03/22/24 13:59 Surgical [PTH] Routine Labs on day of discharge: Laboratory Results - last 24 hr 03/22/24 03/22/24 03/23/24 16:31 20:21 06:29 WBC 5.2 RBC 3.16 L Hgb 9.1 L Hct 27.9 L MCV 88.3 MCH 28.8 MCHC 32.6 RDW 15.1 Plt Count 193 MPV 9.5 Absolute Nucleated RBC 0.000 Nucleated RBC % (auto) 0.0 Sodium 141 Potassium 4.7 Chloride 104 Carbon Dioxide 28 Anion Gap 14 BUN 11 Creatinine 1.06 Estim Creat Clear Calc 45.9 Estimated GFR > 60 POC Glucose 276 H 348 H Random Glucose 120 H Calcium 8.7 D 03/23/24 07:37 WBC RBC Hgb Hct MCV MCH MCHC RDW Plt Count MPV Absolute Nucleated RBC Nucleated RBC % (auto) Sodium Potassium Chloride Carbon Dioxide Anion Gap BUN Creatinine Estim Creat Clear Calc Estimated GFR POC Glucose 136 H Random Glucose Calcium Discharge Plan Discharge Anticipated Discharge Date/Time: 03/23/24 12:01 Patient Disposition: Home, Self-Care Discharge Diagnosis: Gastritis Referrals: Ria Bryant MD [Primary Care Provider] - 1 Week Discharge Medications: New ferrous sulfate 324 mg (65 mg iron) Tablet,Delayed Release (Dr/Ec) 324 mg PO BIDWM 30 Days Qty: 60 0RF omeprazole 20 mg Capsule,Delayed Release(Dr/Ec) 20 mg PO DAILY@0630 30 Days Qty: 30 0RF docusate sodium [Colace] 100 mg capsule 100 mg PO DAILY 30 Days Qty: 30 0RF polyethylene glycol 3350 [Miralax] 17 gram/dose powder 17 g PO DAILY PRN (Reason: constipation) Qty: 119 0RF Continued glipizide 10 mg tablet 10 mg PO BID Qty: 180 1RF atorvastatin 40 mg tablet 40 mg PO DAILY Qty: 90 3RF carvedilol 12.5 mg tablet 12.5 mg PO DAILY Rx Instructions: must administer with a meal/food furosemide 20 mg tablet 20 mg PO DAILY warfarin 5 mg tablet 5 mg PO .COMPLEX Protocol: Dose Management Condition: Wednesday (Week One) Dose/Route: 5 mg Instruction: 1 x 5 mg tablet Condition: Wednesday Dose/Route: 7.5 mg Instruction: 1.5 x 5 mg tablets Condition: Wednesday Dose/Route: 5 mg Instruction: 1 x 5 mg tablet Condition: Wednesday Dose/Route: 7.5 mg Instruction: 1.5 x 5 mg tablets Condition: Dose/Route: 5 mg Instruction: 1 x 5 mg tablet Condition: Wednesday Dose/Route: 7.5 mg Instruction: 1.5 x 5 mg tablets Condition: Wednesday Dose/Route: 0 mg Instruction: 0 tablets Condition: Wednesday (Week Two) Dose/Route: 2.5 mg Instruction: 0.5 x 5 mg tablets Condition: Wednesday Dose/Route: 7.5 mg Instruction: 1.5 x 5 mg tablets Condition: Wednesday Dose/Route: 5 mg Instruction: 1 x 5 mg tablet Condition: Wednesday Dose/Route: 7.5 mg Instruction: 1.5 x 5 mg tablets Condition: Dose/Route: 5 mg Instruction: 1 x 5 mg tablet Condition: Wednesday Dose/Route: 7.5 mg Instruction: 1.5 x 5 mg tablets Condition: Wednesday Dose/Route: 5 mg Instruction: 1 x 5 mg tablet Protocol Text: Adjustment Start Date: Wednesday03/17/24 INR Value: 3.9 INR Date: 03/17/24 Recheck Date: 03/24/24 Patient Comments: JUST INITIATED WARFARIN 06/11/23 Rx Instructions: 5 mg orally OR PER INR; lisinopril 10 mg tablet 10 mg PO DAILY metformin 500 mg tablet 1,000 mg PO BID magnesium oxide 400 mg (241.3 mg magnesium) tablet 400 mg PO BID Held aspirin [Adult Aspirin Regimen] 81 mg tablet,delayed release (DR/EC) 81 mg PO DAILY Hold Instructions: resume on Wednesday Discharge Orders: Discharge Order (Routine); Ordered 03/23/24 Ordered By: Christin Ortiz Activity on Discharge: As tolerated Stand Alone Forms: Patient Portal Discharge page Print Language: Zimbabwean Other Ambulatory Orders: Complete Blood Count no Diff (Routine) Timeframe: 1 Week Facility: [facility] - Location: Laboratory Ordered By: Christin Ortiz Care Plan Goals: See below Health Concerns: Gastritis Plan of Treatment: Resume taking aspirin on Wednesday. Do not take any other NSAIDs like ibuprofen, Motrin etc. Can resume taking Coumadin as per previous schedule. Follow in Coumadin clinic as previously scheduled Start taking omeprazole Start taking iron supplementation Iron supplementation can cause constipation, take Colace and as needed MiraLax to prevent constipation Returned to the emergency department with new or worsening symptoms recommend Outpatient follow-up with PCP Assessment: See discharge summary
[2024-03-23 12:00] VITALS: BP 128/65; PULSE 60; RESP 17; TEMP 36.4; O2SAT 97
[2024-03-23 12:22] LABS: Glucose, Whole Blood 306 mg/dL (60-115)
[2024-03-23 12:23] LABS: Hematocrit 27.1 % (42.0-52.0)
[2024-03-23] MEDS: Insulin Lispro 100 UNIT/ML 3 ML VIAL SUBCUT (12:28)
--- NOTE | 2024-03-23 12:44 | MHC.CM.PN ---
PT MEDICALLY CLEARED FOR DC HOME SELF CARE, PT'S DTR FOR TRANSPORT
--- NOTE | 2024-03-23 18:47 | HO.POSTANES ---
Post Anesthesia Evaluation Post Anesthesia Evaluation Date of Service: 03/23/24 Vital Signs: Vital Signs Temp Pulse Resp BP Pulse Ox O2 Del Method 03/23/24 13:04 Room Air 03/23/24 12:00 97.6 F 60 17 128/65 97 Room Air 03/23/24 08:00 97.5 F 60 17 126/64 96 Room Air Anesthesia: Monitored Mental Status: Awake Pain Control: Satisfactory Nausea/Vomiting: None Hydration: Adequate Anesthesia-Related Issues: No Anes. Related Issues
== END 2024-03-23 13:37 | disposition home or self-care (01) | DRG 378 ==
LOC: HO.ED 19:12 → HO.EDOVER 22:02 → HO.IMC 03-21 19:40
PROVIDERS: Internal Medicine Gastroenterology; Nurse Practitioner Family; Student in an Organized Health Care Education/Training Program; Admitting Provider Physician Assistant; Emergency Provider Internal Medicine; PCP Internal Medicine; Visit Provider Physician Assistant Medical
PROC: 0DB78ZX Excision of Stomach, Pylorus, Via Natural or Artificial Opening Endoscopic, Diagnostic (ICD-10-PCS; principal; 2024-03-22 13:00)
DX: K29.71 Gastritis, unspecified, with bleeding (principal); D62 Acute posthemorrhagic anemia; I25.10 Atherosclerotic heart disease of native coronary artery without angina pectoris; E83.42 Hypomagnesemia; E11.9 Type 2 diabetes mellitus without complications; F10.11 Alcohol abuse, in remission; D50.9 Iron deficiency anemia, unspecified; I48.0 Paroxysmal atrial fibrillation; Z66 Do not resuscitate; E78.5 Hyperlipidemia, unspecified; Z95.1 Presence of aortocoronary bypass graft; I10 Essential (primary) hypertension; I25.5 Ischemic cardiomyopathy; Z20.822 Contact with and (suspected) exposure to COVID-19; Z95.810 Presence of automatic (implantable) cardiac defibrillator; Z79.01 Long term (current) use of anticoagulants; Z79.84 Long term (current) use of oral hypoglycemic drugs; Z79.899 Other long term (current) drug therapy
CPT/HCPCS: 0241U; 36415; 70450; 71046; 80048; 80053; 81003; 82272; 82550; 82728; 82947; 83540; 83690; 83735; 84484; 85014; 85018; 85025; 85027; 85610; 86850; 86900; 86901; 86923; 88305; 88313; 88342; 93005; 99211; 99285; J2405; J2470; J2704; J3430; J3475; P9016

== ENCOUNTER → 2024-03-20 17:46 | Outpatient (BNV) | payer MEDICARE, SELFPAY | PROVIDERS: Admitting Provider Physician Assistant; Emergency Provider Internal Medicine; Visit Provider Internal Medicine | DX: R94.31 Abnormal electrocardiogram [ECG] [EKG] (principal); R53.1 Weakness | CPT/HCPCS: 93010 ==

== ENCOUNTER → 2024-03-20 19:10 | Outpatient (BNV) | payer MEDICARE, SELFPAY | PROVIDERS: Emergency Provider Internal Medicine; Visit Provider Physician Assistant | DX: K92.2 Gastrointestinal hemorrhage, unspecified (principal) | CPT/HCPCS: 99223; 99232; 99239 ==

== ENCOUNTER 2024-03-25 12:27 | Observation (INO) | payer MEDICARE, SELFPAY ==
[2024-03-25] VITALS (7 sets, daily range): BP systolic 114–136; BP diastolic 57–68; PULSE 61–77; RESP 15–18; TEMP 36.3–36.6; O2SAT 98–100; BMI 23.3
--- NOTE | ~2024-03-25 | CT_ITS ---
EXAMINATION: CT head/brain wo IV con CLINICAL INFORMATION: Reason for Exam headache COMPARISON: None. TECHNIQUE: Contiguous axial imaging was performed from the skull base to vertex without intravenous contrast. Sagittal and coronal reformatted images were obtained. This CT examination was performed using dose optimization techniques as appropriate, variously including the following: * Automated exposure control * Adjustment of mA and/or kV according to patient size (this includes techniques or standardized protocols for targeted exams where dose is matched to indication/reason for exam; i.e. extremities or head) Use of iterative reconstruction technique DLP: 671 mGy-cm FINDINGS: There is no evidence of acute intracranial hemorrhage. No mass-effect or ventricular shift is noted. No acute, territorial loss of durham-white differentiation. Generalized cerebral volume loss with associated ventricular and sulcal prominence.Periventricular and subcortical white matter hypodensity is nonspecific but likely represents moderate to advanced chronic microvascular ischemic change. No depressed calvarial fracture. Scattered polypoid mucosal thickening in the paranasal sinuses. The mastoid air cells are clear. Extensive subcutaneous vascular calcifications are noted. Intracranial atherosclerotic calcification. CT/CT head/brain wo IV con IMPRESSION: No acute intracranial hemorrhage or territorial loss of durham-white differentiation. Generalized cerebral volume loss with moderate to severe chronic microvascular ischemic change.
--- NOTE | 2024-03-25 12:33 | ED.GENADULT ---
HPI - General Adult General Chief complaint: GI Bleed Stated complaint: extreme fatigue, GI bleed Time Seen by Provider: 03/25/24 12:53 Source: patient Mode of arrival: ambulatory Limitations: no limitations History of Present Illness ED Provider: Rupal TALAVERA HPI narrative: 83 yo male with a history of atrial fibrillation on Warfarin, anemia, and acute GI bleed presents with weakness, fatigue, melena, and dizziness. He was seen here for an acute GI bleed earlier this week where he was seen by GI and had a colonoscopy and EGD which showed mild gastritis per patient. He was given one unit of PRBC's and iron supplementation and discharged, but continues to feel weakness and dizziness when going from sitting to standing. He also reports a headache worse on the left side since this morning. He denies fevers, chills, sob, cp, visual changes. Related Data Home Medications ?Medication ?Instructions ?Recorded ?Confirmed aspirin 81 mg tablet,delayed 81 mg PO DAILY 06/14/23 03/21/24 release (Adult Aspirin Regimen) lisinopril 10 mg tablet 10 mg PO DAILY 06/14/23 03/21/24 warfarin 5 mg tablet 5 mg PO .COMPLEX 06/14/23 03/21/24 metformin 500 mg tablet 1,000 mg PO BID 07/08/23 03/21/24 magnesium oxide 400 mg (241.3 mg 400 mg PO BID 10/22/23 03/21/24 magnesium) tablet carvedilol 12.5 mg tablet 12.5 mg PO DAILY 03/21/24 03/21/24 furosemide 20 mg tablet 20 mg PO DAILY 03/21/24 03/21/24 Previous Rx's ?Medication ?Instructions ?Recorded glipizide 10 mg tablet 10 mg PO BID #180 tabs 07/29/20 atorvastatin 40 mg tablet 40 mg PO DAILY #90 tabs 10/16/20 docusate sodium 100 mg capsule 100 mg PO DAILY 30 days #30 caps 03/23/24 (Colace) ferrous sulfate 324 mg (65 mg 324 mg PO BIDWM 30 days #60 tabs 03/23/24 iron) tablet,delayed release omeprazole 20 mg capsule,delayed 20 mg PO DAILY@0630 30 days #30 03/23/24 release caps polyethylene glycol 3350 17 17 g PO DAILY PRN constipation 03/23/24 gram/dose oral powder (Miralax) #119 grams Allergies Allergy/AdvReac Type Severity Reaction Status Date / Time isosorbide AdvReac Unknown dizziness Verified 03/25/24 12:35 Review of Systems Review of Systems: Yes all other systems are reviewed and are negative [facility] Past Medical History Attestation statement: The following information was validated with the patient. Source: old records reviewed and nursing notes reviewed Medical History History of alcohol abuse Ischemic cardiomyopathy with implantable cardioverter-defibrillator (ICD) Hyperlipidemia HTN (hypertension) Diabetes mellitus CAD (coronary artery disease) Atrial fibrillation Social History Social History Household Members: None Housing: House Housing Other:: [employer] Do you presently have visiting nurse or other home services: Yes Alcohol intake: former Patient Tobacco Use Status: Never used Tobacco Smoked in Last 30 Days: No Use of substances other than those prescribed or required for medical reasons: No Advance Directives: Yes Advance Directives on File: Yes Advance Directives Date on File: 08/16/23 Do you have a plan to hurt others: No Plan service: No Current occupation: RETIRED 20 YEARS Current occupational exposures/hazards: No Physical Exam ED Vital Signs: Vital Signs - 24 hr 03/25/24 12:33 03/25/24 12:58 03/25/24 12:59 Temperature 97.6 F Pulse Rate 77 72 61 Respiratory Rate 18 15 Blood Pressure 123/62 131/68 114/60 Pulse Oximetry 98 99 Oxygen Delivery Method Room Air Room Air 03/25/24 13:01 03/25/24 13:02 Temperature Pulse Rate 66 72 Respiratory Rate Blood Pressure 114/57 L 118/62 Pulse Oximetry Oxygen Delivery Method BMI result Body Mass Index 23.3 vss Appearance: Alert.? Oriented X3.? No acute distress.? Head: Normocephalic, atraumatic, no step-offs or deformities Eyes: Pupils equal, round and reactive to light.? Neck: Normal inspection.? Neck supple.? CVS: Normal heart rate and rhythm.? Pulses normal.? Respiratory: No respiratory distress.? Breath sounds normal.? Abdomen: Soft and nontender.? Skin: Skin warm and dry.? Normal skin color.? Normal skin turgor.? Extremities: No lower extremity edema.? No calf ttp. 5/5 strength to bilateral upper and lower extremities Back: No midline tenderness, no C-spine tenderness, full range of motion, no CVA tenderness bilaterally Neuro: Oriented X 3.? No motor deficit.? No sensory deficit. CN 2-12 intact. No pronator drift, normal finger to nose, heel to foster. NIH stroke scale 0 Course Course Course Narrative: This is a Rapid Medical Examination (RME) performed by Sima Sparrow PA-C in triage. Full HPI, ROS, assessment and treatment plan per primary provider in the Main ED. 83 yo male hx of afib on wardarin here w/ daughter for eval of extreme fatigue, headache, melena, and confusion x3 days. admitted to [facility] [place] [facility] [place]20-03/23 for same, noted to have positive OBS, seen by GI and underwent EGD and colonoscopy. Colonoscopy unremarkable. EGD showed mild gastritis. He was given 1 unit PRBCs. Recommended iron supplementation, oral PPI and advised to resume warfarin. Reports worsening symptoms since being discharged home. took his warfarin this morning. admits to increased shortness of breath. Plan: labs, OBS Reevaluation(s) Reevaluation #1: Patient's CBC with a normocytic anemia, slightly lower than it was when patient was discharged from the hospital on 03/23/2024. Chemistry slight elevation in BUN and creatinine will give IV fluids at this time. Patient's magnesium is low at 1.5 it was 1.5 previously as well. Iron low TIBC low. OBS, repeat CBC pending. Time: 14:29 Reevaluation #2: Opiates negative however this exam is limited by empty rectal vault. Time: 14:43 Reevaluation #3: Discuss this case with GI Dr. Zamudio who does not feel as though there is immediate need for GI consult. If needed they can be consulted after. Okay to monitor patient. I did also discuss with him that this could be an adverse effect of iron. However, iron supplements do not explain patient's new onset dizziness and weakness.Will hold on transfusion at this time. Plan is for observation/admission. Time: 14:48 Medical Decision Making Medical Decision Making MDM Narrative: 83 yo male with history of atrial fibrillation on Warfarin presenting with persistent weakness and melena after being seen for GI bleed on 03/20. PE benign, normal finger to nose and heel to foster, no pronator drift. Hx and PE concerning for GI bleed vs adverse effects of iron. Unlikely stroke, posterior stroke, ICH, IBD, hemorrhoid, anal fissure. Plan - labs, urine Differential Diagnosis Differential Diagnoses: The differential diagnosis associated with the presentation includes Hx and PE concerning for GI bleed vs adverse effects of iron.Unlikely stroke, posterior stroke, ICH, IBD, hemorrhoid, anal fissure. Admission/Observation Consideration of admission/observation: Escalation of care including admission/observation considered possible Lab Data MDM Lab Attestation statement: I reviewed the patient's lab results. 03/25/24 14:23 03/25/24 12:45 Labs: Lab Results 03/25/24 03/25/24 03/25/24 Range/Units 12:45 13:11 14:23 WBC 5.4 6.3 (4.8-10.8) X10*3/uL RBC 3.06 L 2.97 L (4.60-5.80) X10*6/uL Hgb 8.9 L 8.7 L (14.0-18.0) g/dl Hct 26.6 L 25.8 L (42.0-52.0) % MCV 86.9 86.9 (80.0-98.0) fL MCH 29.1 29.3 (27.0-33.0) pg MCHC 33.5 33.7 (31.0-36.0) g/dl RDW 14.9 14.9 (11.0-16.0) % Plt Count 181 185 (160-400) X10*3/uL MPV 9.0 L 9.5 (9.4-12.4) fL Immature Gran % (Auto) 0.2 0.3 (0.0-0.4) % Neut % (Auto) 71.3 68.0 (45-73) % Lymph % (Auto) 19.1 L 20.5 (20-40) % [place] % (Auto) 7.7 9.1 (2-11) % Eos % (Auto) 1.5 1.9 (0-4) % Baso % (Auto) 0.2 0.2 (0-2) % Lymph # (Auto) 1.0 L 1.3 (1.2-4.9) X10*3/uL [place] # (Auto) 0.4 0.6 (0.1-1.2) X10*3/uL Eos # (Auto) 0.1 0.1 (0.0-0.4) X10*3/uL Baso # (Auto) 0.0 0.0 (0.0-0.2) X10*3/uL Abs Immat Gran (auto) 0.01 0.02 (0.00-0.03) X10*3/uL Absolute Neuts (auto) 3.9 4.3 (2.0-8.3) x10*3/uL Absolute Nucleated RBC 0.000 0.000 (0.0-0.012) X10*3/uL Nucleated RBC % (auto) 0.0 0.0 (0.0-0.2) /100WBC PT 13.6 H D (11.1-13.3) SEC INR 1.1 (0.9-1.1) APTT 30.3 (26.0-36.8) SEC Sodium 134 L (135-145) mmol/L Potassium 4.0 (3.3-5.1) mmol/L Chloride 101 (96-108) mmol/L Carbon Dioxide 24 (22-29) mmol/L Anion Gap 13 (12-20) BUN 17 H (9-16) mg/dL Creatinine 1.21 (0.5-1.4) mg/dL Estim Creat Clear Calc 40.2 Estimated GFR 57 Random Glucose 151 H (60-115) mg/dL Calcium 9.0 (8.4-10.2) mg/dL Magnesium 1.5 L (1.6-2.6) mg/dL Iron 35 L (45-160) mcg/dL TIBC 219 L (228-428) mcg/dL % Saturation 16 (15-50) % Unsat Iron Binding 184 ug/dL Total Bilirubin 0.5 (0.0-1.0) mg/dL AST 19 (5-37) U/L ALT 21 (0-40) U/L Alkaline Phosphatase 80 (39-117) U/L Total Protein 6.0 L (6.5-8.0) g/dL Albumin 3.5 (3.5-5.0) g/dL Lipase 35 (8-78) U/L Stool Occult Blood (NEGATIVE) Blood Type O Positive Antibody Screen NEGATIVE 03/25/24 Range/Units 14:24 WBC (4.8-10.8) X10*3/uL RBC (4.60-5.80) X10*6/uL Hgb (14.0-18.0) g/dl Hct (42.0-52.0) % MCV (80.0-98.0) fL MCH (27.0-33.0) pg MCHC (31.0-36.0) g/dl RDW (11.0-16.0) % Plt Count (160-400) X10*3/uL MPV (9.4-12.4) fL Immature Gran % (Auto) (0.0-0.4) % Neut % (Auto) (45-73) % Lymph % (Auto) (20-40) % [place] % (Auto) (2-11) % Eos % (Auto) (0-4) % Baso % (Auto) (0-2) % Lymph # (Auto) (1.2-4.9) X10*3/uL [place] # (Auto) (0.1-1.2) X10*3/uL Eos # (Auto) (0.0-0.4) X10*3/uL Baso # (Auto) (0.0-0.2) X10*3/uL Abs Immat Gran (auto) (0.00-0.03) X10*3/uL Absolute Neuts (auto) (2.0-8.3) x10*3/uL Absolute Nucleated RBC (0.0-0.012) X10*3/uL Nucleated RBC % (auto) (0.0-0.2) /100WBC PT (11.1-13.3) SEC INR (0.9-1.1) APTT (26.0-36.8) SEC Sodium (135-145) mmol/L Potassium (3.3-5.1) mmol/L Chloride (96-108) mmol/L Carbon Dioxide (22-29) mmol/L Anion Gap (12-20) BUN (9-16) mg/dL Creatinine (0.5-1.4) mg/dL Estim Creat Clear Calc Estimated GFR Random Glucose (60-115) mg/dL Calcium (8.4-10.2) mg/dL Magnesium (1.6-2.6) mg/dL Iron (45-160) mcg/dL TIBC (228-428) mcg/dL % Saturation (15-50) % Unsat Iron Binding ug/dL Total Bilirubin (0.0-1.0) mg/dL AST (5-37) U/L ALT (0-40) U/L Alkaline Phosphatase (39-117) U/L Total Protein (6.5-8.0) g/dL Albumin (3.5-5.0) g/dL Lipase (8-78) U/L Stool Occult Blood NEGATIVE (NEGATIVE) Blood Type Antibody Screen External Record Review External record reviewed: Inpatient record, Office record, Outpatient record, Prior outpatient labs, Prior outpatient radiology, Primary care record and Outside ED record Critical Care Time Critical Care Time Critical Care Time: Yes Total Critical Care Time: 35 Attestation: I attest to this time spent taking care of the patient, obtaining history, physical, reviewing labs, imaging, speaking to my attending, specialist or hospitalist. Discharge Plan Discharge Clinical Impression: Current use of anticoagulant therapy, Melena, Dizziness Prescriptions: No Action glipizide 10 mg tablet 10 mg PO BID Qty: 180 1RF atorvastatin 40 mg tablet 40 mg PO DAILY Qty: 90 3RF carvedilol 12.5 mg tablet 12.5 mg PO DAILY Rx Instructions: must administer with a meal/food furosemide 20 mg tablet 20 mg PO DAILY ferrous sulfate 324 mg (65 mg iron) Tablet,Delayed Release (Dr/Ec) 324 mg PO BIDWM 30 Days Qty: 60 0RF omeprazole 20 mg Capsule,Delayed Release(Dr/Ec) 20 mg PO DAILY@0630 30 Days Qty: 30 0RF docusate sodium [Colace] 100 mg capsule 100 mg PO DAILY 30 Days Qty: 30 0RF polyethylene glycol 3350 [Miralax] 17 gram/dose powder 17 g PO DAILY PRN (Reason: constipation) Qty: 119 0RF warfarin 5 mg tablet 5 mg PO .COMPLEX Protocol: Dose Management Condition: Wednesday (Week One) Dose/Route: 5 mg Instruction: 1 x 5 mg tablet Condition: Wednesday Dose/Route: 7.5 mg Instruction: 1.5 x 5 mg tablets Condition: Wednesday Dose/Route: 5 mg Instruction: 1 x 5 mg tablet Condition: Wednesday Dose/Route: 7.5 mg Instruction: 1.5 x 5 mg tablets Condition: Dose/Route: 5 mg Instruction: 1 x 5 mg tablet Condition: Wednesday Dose/Route: 7.5 mg Instruction: 1.5 x 5 mg tablets Condition: Wednesday Dose/Route: 0 mg Instruction: 0 tablets Condition: Wednesday (Week Two) Dose/Route: 2.5 mg Instruction: 0.5 x 5 mg tablets Condition: Wednesday Dose/Route: 7.5 mg Instruction: 1.5 x 5 mg tablets Condition: Wednesday Dose/Route: 5 mg Instruction: 1 x 5 mg tablet Condition: Wednesday Dose/Route: 7.5 mg Instruction: 1.5 x 5 mg tablets Condition: Dose/Route: 5 mg Instruction: 1 x 5 mg tablet Condition: Wednesday Dose/Route: 7.5 mg Instruction: 1.5 x 5 mg tablets Condition: Wednesday Dose/Route: 5 mg Instruction: 1 x 5 mg tablet Protocol Text: Adjustment Start Date: Wednesday03/17/24 INR Value: 3.9 INR Date: 03/17/24 Recheck Date: 03/24/24 Patient Comments: JUST INITIATED WARFARIN 06/11/23 Rx Instructions: 5 mg orally OR PER INR; lisinopril 10 mg tablet 10 mg PO DAILY aspirin [Adult Aspirin Regimen] 81 mg tablet,delayed release (DR/EC) 81 mg PO DAILY Hold Instructions: resume on Wednesday metformin 500 mg tablet 1,000 mg PO BID magnesium oxide 400 mg (241.3 mg magnesium) tablet 400 mg PO BID Print Language: Polish
--- NOTE | 2024-03-25 12:37 | ECG_ITS ---
Test Reason : Fatigue Blood Pressure : / mmHG Vent. Rate : 073 BPM Atrial Rate : 073 BPM P-R Int : 274 ms QRS Dur : 096 ms QT Int : 410 ms P-R-T Axes : 084 005 193 degrees QTc Int : 451 ms Sinus rhythm with 1st degree A-V block with occasional Premature ventricular complexes and Premature atrial complexes ST & T wave abnormality, consider anterolateral ischemia Abnormal ECG When compared with ECG of 20-MAR-2024 17:52, Sinus rhythm has replaced Electronic atrial pacemaker Referred By: Mariposa Sparrow Electronically Signed By:PATRICIA CARBAJAL
[2024-03-25 12:52] LABS: MANUAL DIFF FLAG NO
[2024-03-25 12:56] LABS: Basophils Percent Auto 0.2 % (0-2); Eosinophils Absolute Auto 0.1 X10*3/uL (0.0-0.4); Eosinophils Percent Auto 1.5 % (0-4); Hematocrit 26.6 % (42.0-52.0); Hemoglobin 8.9 g/dl (14.0-18.0); Imm Gran Abs Auto 0.01 X10*3/uL (0.00-0.03); Imm Gran Pct Auto 0.2 % (0.0-0.4); Lymphocytes Percent Auto 19.1 % (20-40); Mean Corpuscular HGB Conc 33.5 g/dl (31.0-36.0); Mean Corpuscular Hemoglobin 29.1 pg (27.0-33.0); Mean Corpuscular Volume 86.9 fL (80.0-98.0); Monocytes Absolute Auto 0.4 X10*3/uL (0.1-1.2); Monocytes Percent Auto 7.7 % (2-11); Neutrophils Absolute Auto 3.9 x10*3/uL (2.0-8.3); Neutrophils Percent Auto 71.3 % (45-73); Platelet Count 181 X10*3/uL (160-400); Red Blood Count 3.06 X10*6/uL (4.60-5.80); Red Cell Distribution Width 14.9 % (11.0-16.0); White Blood Count 5.4 X10*3/uL (4.8-10.8)
[2024-03-25 13:02] LABS: INTERNATIONAL NORM RATIO 1.1 (0.9-1.1); Prothrombin Time 13.6 SEC (11.1-13.3)
[2024-03-25 13:05] LABS: Partial Thromboplastin Time 30.3 SEC (26.0-36.8)
[2024-03-25 13:07] LABS: Alanine Aminotransferase 21 U/L (0-40); Albumin Level 3.5 g/dL (3.5-5.0); Alkaline Phosphatase 80 U/L (39-117); Anion Gap 13 (12-20); Aspartate Amino Transferase 19 U/L (5-37); Bilirubin Total 0.5 mg/dL (0.0-1.0); Blood Urea Nitrogen 17 mg/dL (9-16); Carbon Dioxide 24 mmol/L (22-29); Chloride 101 mmol/L (96-108); Creatinine Clr Calc Pharmacy 40.2; Estimated Glomerular Filt Rate 57; Glucose Random 151 mg/dL (60-115); Lipase 35 U/L (8-78); Magnesium 1.5 mg/dL (1.6-2.6); Sodium 134 mmol/L (135-145)
[2024-03-25 14:15] LABS: Iron 35 mcg/dL (45-160); Percent Iron Saturation 16 % (15-50); Total Iron Binding Capacity 219 mcg/dL (228-428); Unsaturated Iron Binding 184 ug/dL
[2024-03-25 14:30] LABS: MANUAL DIFF FLAG NO
[2024-03-25 14:33] LABS: Basophils Percent Auto 0.2 % (0-2); Eosinophils Absolute Auto 0.1 X10*3/uL (0.0-0.4); Eosinophils Percent Auto 1.9 % (0-4); Hematocrit 25.8 % (42.0-52.0); Hemoglobin 8.7 g/dl (14.0-18.0); Imm Gran Abs Auto 0.02 X10*3/uL (0.00-0.03); Imm Gran Pct Auto 0.3 % (0.0-0.4); Lymphocytes Absolute Auto 1.3 X10*3/uL (1.2-4.9); Lymphocytes Percent Auto 20.5 % (20-40); Mean Corpuscular HGB Conc 33.7 g/dl (31.0-36.0); Mean Corpuscular Hemoglobin 29.3 pg (27.0-33.0); Mean Corpuscular Volume 86.9 fL (80.0-98.0); Mean Platelet Volume 9.5 fL (9.4-12.4); Monocytes Absolute Auto 0.6 X10*3/uL (0.1-1.2); Monocytes Percent Auto 9.1 % (2-11); Neutrophils Absolute Auto 4.3 x10*3/uL (2.0-8.3); Platelet Count 185 X10*3/uL (160-400); Red Blood Count 2.97 X10*6/uL (4.60-5.80); Red Cell Distribution Width 14.9 % (11.0-16.0); White Blood Count 6.3 X10*3/uL (4.8-10.8)
[2024-03-25 14:35] LABS: OBS Int Ctl Valid YES; OBS1 NEGATIVE (NEGATIVE)
--- NOTE | 2024-03-25 15:28 | PM.IMHP ---
History of Present Illness Date of Service: 03/25/24 Chief Complaint: GI bleed 83-year-old man presenting to the ER for complaints of one episode of black stool and ongoing fatigue. He was recently discharged from [facility] and at that time had a colonoscopy and endoscopy. His aspirin and warfarin were placed on hold and he was recommended iron supplementation. Patient reported that he continues to have weakness and dizziness upon rising from sitting to standing. He reported some headache but denied fever, chills, nausea, vomiting, shortness breath, chest pain, visual changes. H&H is 8.7 and 25.8, iron 35, magnesium 1.5. Head CT is negative for any acute intracranial abnormality. Patient was given IV magnesium in the ER. He will be admitted for further management and treatment of acute GI bleed. Review of Systems Review of Systems: Denies any recent fever chills or decrease in appetite respiratory denies any shortness of breath or cough cardiovascular denied chest pain gastrointestinal denies any dysphagia abdominal pain nausea vomiting or diarrhea genitourinary denies any dysuria frequency or hematuria musculoskeletal denies any joint pain or swelling neuropsych denies any weakness or seizures all other systems reviewed are negative [facility] Medical History History of alcohol abuse Ischemic cardiomyopathy with implantable cardioverter-defibrillator (ICD) Hyperlipidemia HTN (hypertension) Diabetes mellitus CAD (coronary artery disease) Atrial fibrillation Social History Household Members: None Housing: House Housing Other:: [employer] HIM - MARK Do you presently have visiting nurse or other home services: Yes Alcohol intake: former Patient Tobacco Use Status: Never used Tobacco Smoked in Last 30 Days: No Use of substances other than those prescribed or required for medical reasons: No Advance Directives: Yes Advance Directives on File: Yes Advance Directives Date on File: 08/16/23 Do you have a plan to hurt others: No Plan service: No Current occupation: RETIRED 20 YEARS Current occupational exposures/hazards: No Meds Allergies Allergy/AdvReac Type Severity Reaction Status Date / Time isosorbide AdvReac Unknown dizziness Verified 03/25/24 12:35 Active Medications: Current Medications Acetaminophen (Acetaminophen 325 Mg Tablet) 650 mg PO Q6H PRN PRN Reason: Pain, Mild (Pain Scale 1-3), fever or headache Calcium Carbonate (Calcium Carbonate 750 Mg Tab.Chew) 750 mg PO Q4H PRN PRN Reason: Heartburn Magnesium Sulfate (Magnesium Sulfate/H2o) 2 gm in 50 mls @ 25 mls/hr IV ONCE ONE Stop: 03/25/24 17:17 Magnesium Hydroxide (Milk Of Magnesia 30 Ml Oral.Susp) 30 ml PO DAILY PRN PRN Reason: Constipation Melatonin (Melatonin 3 Mg Tablet) 6 mg PO BEDTIME PRN PRN Reason: Insomnia Ondansetron HCl (Ondansetron Hcl 4 Mg/2 Ml Vial) 4 mg IVPUSH Q8H PRN PRN Reason: Nausea and Vomiting Polyethylene Glycol (Polyethylene Glycol 3350 17 Gm Powd.Pack) 17 gm PO DAILY PRN PRN Reason: Constipation Sodium Chloride (0.9 % Sodium Chloride Flush 3 Ml Syringe) [facility] Medications ?Medication ?Instructions ?Recorded ?Confirmed ?Last Taken ?Type aspirin 81 mg tablet,delayed 81 mg PO DAILY 06/14/23 03/21/24 Unknown History release (Adult Aspirin Regimen) lisinopril 10 mg tablet 10 mg PO DAILY 06/14/23 03/21/24 Unknown History warfarin 5 mg tablet 5 mg PO .COMPLEX 06/14/23 03/21/24 03/20/24 History metformin 500 mg tablet 1,000 mg PO BID 07/08/23 03/21/24 Unknown History magnesium oxide 400 mg (241.3 mg 400 mg PO BID 10/22/23 03/21/24 Unknown History magnesium) tablet carvedilol 12.5 mg tablet 12.5 mg PO DAILY 03/21/24 03/21/24 Unknown History furosemide 20 mg tablet 20 mg PO DAILY 03/21/24 03/21/24 Unknown History docusate sodium 100 mg capsule 100 mg PO DAILY PRN Constipation 03/25/24 03/25/24 Unknown History (Colace) Physical Exam Vital Signs and Narrative: Vital Signs: Last Vital Signs Temp 97.6 F 03/25/24 12:33 Pulse 72 03/25/24 13:02 Resp 15 03/25/24 12:58 BP 118/62 03/25/24 13:02 Pulse Ox 99 03/25/24 12:58 O2 Del Method Room Air 03/25/24 12:58 BMI result Body Mass Index 23.3 Appearing in no acute distress head is normocephalic atraumatic eyes pupils are PERRLA sclera is anicteric mouth throat mucous membranes are intact and moist neck is supple no lymphadenopathy, no JVD noted lung sounds are clear to auscultation heart regular rate rhythm, clear S1, S2 positive bowel sounds, abdomen is soft, nontender neuro patient is alert x3, no focal deficits Results Labs 03/25/24 14:23 03/25/24 12:45 Labs: Laboratory Results - last 24 hr 03/25/24 03/25/24 03/25/24 12:45 13:11 14:23 MCV 86.9 86.9 MCH 29.1 29.3 MCHC 33.5 33.7 RDW 14.9 14.9 Plt Count 181 185 MPV 9.0 L 9.5 Immature Gran % (Auto) 0.2 0.3 Neut % (Auto) 71.3 68.0 Lymph % (Auto) 19.1 L 20.5 [place] % (Auto) 7.7 9.1 Eos % (Auto) 1.5 1.9 Baso % (Auto) 0.2 0.2 Lymph # (Auto) 1.0 L 1.3 [place] # (Auto) 0.4 0.6 Eos # (Auto) 0.1 0.1 Baso # (Auto) 0.0 0.0 Abs Immat Gran (auto) 0.01 0.02 Absolute Neuts (auto) 3.9 4.3 Absolute Nucleated RBC 0.000 0.000 Nucleated RBC % (auto) 0.0 0.0 PT 13.6 H D INR 1.1 APTT 30.3 Anion Gap 13 Estim Creat Clear Calc 40.2 Estimated GFR 57 Random Glucose 151 H Calcium 9.0 Magnesium 1.5 L Iron 35 L TIBC 219 L % Saturation 16 Unsat Iron Binding 184 Total Bilirubin 0.5 AST 19 ALT 21 Alkaline Phosphatase 80 Total Protein 6.0 L Albumin 3.5 Lipase 35 Stool Occult Blood Blood Type O Positive Antibody Screen NEGATIVE 03/25/24 14:24 MCV MCH MCHC RDW Plt Count MPV Immature Gran % (Auto) Neut % (Auto) Lymph % (Auto) [place] % (Auto) Eos % (Auto) Baso % (Auto) Lymph # (Auto) [place] # (Auto) Eos # (Auto) Baso # (Auto) Abs Immat Gran (auto) Absolute Neuts (auto) Absolute Nucleated RBC Nucleated RBC % (auto) PT INR APTT Anion Gap Estim Creat Clear Calc Estimated GFR Random Glucose Calcium Magnesium Iron TIBC % Saturation Unsat Iron Binding Total Bilirubin AST ALT Alkaline Phosphatase Total Protein Albumin Lipase Stool Occult Blood NEGATIVE Blood Type Antibody Screen Assessment and Plan (1) Melena: Status: Acute Plan 83-year-old man admitted for GI bleed Acute blood loss anemia secondary to suspected GI bleed Patient reports melena Stable H&H at this time Stool occult negative Ppi Hold warfarin and aspirin check HH this evening Acute hypomagnesemia. Give 2 g of IV magnesium at this time Follow closely Paroxysmal atrial fibrillation Rate controlled Hold warfarin due to melena cardiology consult to discuss with family risk to benefit Diabetes mellitus type 2 Sliding scale, ADA diet Coronary artery disease/ischemic cardiomyopathy Hold aspirin, continue statin Hypertension Stable blood pressure Will hold antihypertensives at this time to avoid hypotension DVT prophylaxis with pneumatic compression boots DNR/DNI Patient required least 2 inpatient midnights for treatment of acute blood loss anemia secondary to GI bleed. Will require close monitoring and possibly specialty consultation. Due to patient's age he has a high risk for decompensation. Quality Stroke Does the patient have a stroke diagnosis?: No VTE Prior VTE?: No VTE Risk Level:: Medical - moderate - high VTE Device Contraindication: N/A - Device Ordered VTE Drug Contraindication: Treatment Not Indicated
[2024-03-25] MEDS: 0.9 % Sodium Chloride Flush 3 ML SYRINGE IVFLUSH ×2 (15:50→20:31)
[2024-03-25] MEDS: Magnesium Sulfate/H2O 2 GM/50 ML PIGGYBACK IV (15:50)
--- NOTE | 2024-03-25 16:02 | PHA.MEDREC ---
Pharmacy Consult ? Medication Reconciliation Pharmacy has completed the medication reconciliation. spoke with patient and daughter (Kendra) at bedside. He started his omeprazole and iron supplement. He did get docusate and miralax just incase he gets constipation but has not used them. Patient stated he did take aspirin this morning. He took warfarin 5mg yesterday and this morning, and said he is supposed to take tomorrow as well and is planning on going to clinic on Wednesday since his INR was high. He was only able to recall taking furosemide, glipizide, metformin, warfarin, and baby aspirin this morning.
[2024-03-25 16:13] LABS: Glucose, Whole Blood 58 mg/dL (60-115)
[2024-03-25 16:21] LABS: Appearance Urine Clear; Color Urine Yellow; Glucose Urine UA Negative (Negative); Leukocyte Esterase Urine Negative (Negative); Nitrite Urine Negative (Negative); PH 5.5 (5.0-9.0); Specific Gravity - Urine <= 1.005 (1.005-1.025); Urine Blood Negative (Negative); Urine Ketones Negative (Negative); Urine Protein Negative (Neg-Trace)
[2024-03-25 17:13] LABS: Hematocrit 28.3 % (42.0-52.0); Hemoglobin 9.4 g/dl (14.0-18.0)
[2024-03-25 17:30] LABS: Glucose, Whole Blood 108 mg/dL (60-115)
[2024-03-25] MEDS: Ferrous Sulfate 324 MG TABLET.DR PO (18:13)
[2024-03-25 18:28] LABS: Glucose, Whole Blood 152 mg/dL (60-115)
[2024-03-25 20:00] LABS: Glucose, Whole Blood 204 mg/dL (60-115)
[2024-03-25] MEDS: Insulin Lispro 100 UNIT/ML 3 ML VIAL SUBCUT (20:30)
[2024-03-25] MEDS: Magnesium Oxide 400 MG TABLET PO (20:30)
[2024-03-25] MEDS: carvediloL 12.5 MG TABLET PO (20:30)
[2024-03-26 03:20] VITALS: BP 116/67; PULSE 72; RESP 16; TEMP 36.7; O2SAT 95
[2024-03-26] MEDS: Omeprazole 20 MG CAPSULE.DR PO (05:38)
[2024-03-26 05:42] LABS: Hematocrit 27.3 % (42.0-52.0); Hemoglobin 9.1 g/dl (14.0-18.0); Mean Corpuscular HGB Conc 33.3 g/dl (31.0-36.0); Mean Corpuscular Hemoglobin 29.3 pg (27.0-33.0); Mean Corpuscular Volume 87.8 fL (80.0-98.0); Mean Platelet Volume 9.6 fL (9.4-12.4); Platelet Count 178 X10*3/uL (160-400); Red Blood Count 3.11 X10*6/uL (4.60-5.80); Red Cell Distribution Width 14.9 % (11.0-16.0); White Blood Count 4.8 X10*3/uL (4.8-10.8)
[2024-03-26 06:00] LABS: Magnesium 1.8 mg/dL (1.6-2.6)
[2024-03-26 06:09] LABS: Alanine Aminotransferase 19 U/L (0-40); Albumin Level 3.3 g/dL (3.5-5.0); Alkaline Phosphatase 78 U/L (39-117); Anion Gap 10 (12-20); Aspartate Amino Transferase 17 U/L (5-37); Bilirubin Total 0.3 mg/dL (0.0-1.0); Blood Urea Nitrogen 18 mg/dL (9-16); Calcium 9.1 mg/dL (8.4-10.2); Carbon Dioxide 29 mmol/L (22-29); Chloride 102 mmol/L (96-108); Creatinine Clr Calc Pharmacy 41.6; Estimated Glomerular Filt Rate 60; Glucose Random 193 mg/dL (60-115); Potassium 4.3 mmol/L (3.3-5.1); Sodium 137 mmol/L (135-145); Total Protein 5.7 g/dL (6.5-8.0)
[2024-03-26 06:58] VITALS: BP 123/60; PULSE 76; RESP 16; TEMP 36.7; O2SAT 97
[2024-03-26 07:14] LABS: Glucose, Whole Blood 149 mg/dL (60-115)
[2024-03-26] MEDS: 0.9 % Sodium Chloride Flush 3 ML SYRINGE IVFLUSH (08:11)
[2024-03-26] MEDS: Magnesium Oxide 400 MG TABLET PO (08:11)
[2024-03-26 08:12] VITALS: BP 123/60; PULSE 76
[2024-03-26] MEDS: carvediloL 12.5 MG TABLET PO (08:12)
[2024-03-26] MEDS: Atorvastatin Calcium 40 MG TABLET PO (08:12)
[2024-03-26] MEDS: Ferrous Sulfate 324 MG TABLET.DR PO (08:12)
--- NOTE | 2024-03-26 09:45 | PM.CNCAR ---
History of Present Illness History of Present Illness Date of Service: 03/26/24 Chief complaint: Melena Narrative: This is a cardiology consultation regarding GI bleeding with history of cardiac comorbidities. Patient states he goes to Dr. Hendrickson, presumably at [facility]. According to history, he has atrial fibrillation, coronary disease, history of bypass surgery, ischemic cardiomyopathy as well as ICD placement and I do not have any primary verification of these. Due to weekend, records not available. Patient had a recent hospitalization for GI bleed and it seems he underwent full workup with endoscopy and colonoscopy. Aspirin/warfarin were placed on hold. Now patient gets readmitted with melena and other complaints like weakness and dizziness. Hemoglobin was 8.7. From the cardiac standpoint, he is generally any complaints. Review of Systems Review of Systems: Yes all other systems are reviewed and are negative Constitutional: Constitutional: Reports as per HPI and Reports no additional constitutional complaints Eyes: Eyes: Reports as per HPI and Denies no additional eye complaints ENT: Denies system reviewed and no additional complaints, except as documented and Reports as per HPI Cardiovascular: Cardiovascular: Reports as per HPI, Reports no additional cardiovascular complaints, Denies acrocyanosis, Denies cool extremities, Denies chest pain, Denies leg edema, Denies lightheadedness, Denies palpitations and Denies dyspnea Respiratory: Respiratory: Reports as per HPI, Denies no additional respiratory complaints and Denies dyspnea Gastrointestinal: Gastrointestinal: Reports as per HPI and Denies no additional gastrointestinal complaints Genitourinary: Genitourinary: Reports no additional male genitourinary complaints and Reports as per HPI Musculoskeletal: Musculoskeletal: Reports no additional musculoskeletal complaints and Reports as per HPI Integumentary/Breasts: Skin/Breast: Reports system reviewed and no additional complaints, except as docu Neurologic: Reports system reviewed and no additional complaints, except as documented and Reports as per HPI Psychiatric: Psychiatric: Reports no additional psychiatric complaints and Reports as per HPI Endocrine: Endocrine: Reports no additional endocrine complaints, Reports as per HPI and Denies palpitations Hematologic/Lymphatic: Hematologic/Lymphatic: Reports no additional hematologic/lymphatic complaints and Reports as per HPI Allergic/Immunologic: Allergic/Immunologic: Reports no additional allergic/immunologic complaints and Reports as per HPI [facility] Past Medical History Medical History (Updated 03/26/24 @ 09:49 by Robert Rincon MD) History of alcohol abuse Ischemic cardiomyopathy with implantable cardioverter-defibrillator (ICD) Hyperlipidemia HTN (hypertension) Diabetes mellitus CAD (coronary artery disease) Atrial fibrillation Family History Family History Unknown No problems noted. Social History Social History Household Members: None Housing: House Housing Other:: [facility] Do you presently have visiting nurse or other home services: No Alcohol intake: former Patient Tobacco Use Status: Never used Tobacco Advance Directives Date on File: 08/16/23 service: No Current occupation: RETIRED 20 YEARS Current occupational exposures/hazards: No Meds Allergies Allergy/AdvReac Type Severity Reaction Status Date / Time isosorbide AdvReac Unknown dizziness Verified 03/25/24 12:35 Active Medications: Current Medications Acetaminophen (Acetaminophen 325 Mg Tablet) 650 mg PO Q6H PRN PRN Reason: Pain, Mild (Pain Scale 1-3), fever or headache Atorvastatin Calcium (Atorvastatin Calcium 40 Mg Tablet) 40 mg PO DAILY [facility] Last Admin: 03/26/24 08:12 Dose: 40 mg Calcium Carbonate (Calcium Carbonate 750 Mg Tab.Chew) 750 mg PO Q4H PRN PRN Reason: Heartburn Carvedilol (Carvedilol 12.5 Mg Tablet) 12.5 mg PO BID [facility]; Protocol Last Admin: 03/26/24 08:12 Dose: 12.5 mg Docusate Sodium (Docusate Sodium 100 Mg Capsule) 100 mg PO DAILY PRN PRN Reason: Constipation Ferrous Sulfate (Ferrous Sulfate 324 Mg Tablet.Dr) 324 mg PO BIDWM [facility] Last Admin: 03/26/24 08:12 Dose: 324 mg Glucose (Glucose Gel 15 Gm Gel..Gram.) 15 gm PO Q15M PRN; Protocol PRN Reason: per Hypoglycemia Standing Ord. Dextrose (D10) 250 mls @ 750 mls/hr IV Q15M PRN; Protocol PRN Reason: per Hypoglycemia Standing Ord. Insulin Human Lispro (Insulin Lispro 100 Unit/Ml 3 Ml Vial) 0 unit SUBCUT QIDACHS [facility]; Protocol Last Admin: 03/26/24 07:39 Dose: Not Given Magnesium Hydroxide (Milk Of Magnesia 30 Ml Oral.Susp) 30 ml PO DAILY PRN PRN Reason: Constipation Magnesium Oxide (Magnesium Oxide 400 Mg Tablet) 400 mg PO BID [facility] Last Admin: 03/26/24 08:11 Dose: 400 mg Melatonin (Melatonin 3 Mg Tablet) 6 mg PO BEDTIME PRN PRN Reason: Insomnia Omeprazole (Omeprazole 20 Mg Capsule.) 20 mg PO DAILY@0630 [facility] Last Admin: 03/26/24 05:38 Dose: 20 mg Ondansetron HCl (Ondansetron Hcl 4 Mg/2 Ml Vial) 4 mg IVPUSH Q8H PRN PRN Reason: Nausea and Vomiting Polyethylene Glycol (Polyethylene Glycol 3350 17 Gm Powd.Pack) 17 gm PO DAILY PRN PRN Reason: Constipation Sodium Chloride (0.9 % Sodium Chloride Flush 3 Ml Syringe) 3 ml IVFLUSH QSHIFT [facility] Last Admin: 03/26/24 08:11 Dose: 3 ml Home Medications ?Medication ?Instructions ?Recorded ?Confirmed ?Last Taken ?Type aspirin 81 mg tablet,delayed 81 mg PO DAILY 06/14/23 03/25/24 03/25/24 History release (Adult Aspirin Regimen) lisinopril 10 mg tablet 10 mg PO DAILY 06/14/23 03/25/24 Unknown History warfarin 5 mg tablet 5 mg PO DAILY@1800 06/14/23 03/25/24 03/25/24 History metformin 500 mg tablet 1,000 mg PO BID 07/08/23 03/25/24 03/25/24 History magnesium oxide 400 mg (241.3 mg 400 mg PO BID 10/22/23 03/25/24 Unknown History magnesium) tablet carvedilol 12.5 mg tablet 12.5 mg PO BID 03/21/24 03/25/24 Unknown History furosemide 20 mg tablet 20 mg PO DAILY 03/21/24 03/25/24 03/25/24 History docusate sodium 100 mg capsule 100 mg PO DAILY PRN Constipation 03/25/24 03/25/24 Unknown History (Colace) Physical Exam Vital Signs: Vital Signs: Last Vital Signs Temp 98.1 F 03/26/24 06:58 Pulse 76 03/26/24 08:12 Resp 16 03/26/24 06:58 BP 123/60 03/26/24 08:12 Pulse Ox 97 03/26/24 06:58 O2 Del Method Room Air 03/26/24 06:58 BMI result Body Mass Index 23.3 Const: General: comfortable and no acute distress Orientation/consciousness: patient oriented x3 HEENT: Other: Unremarkable Head: Yes normal to inspection Neck: Neck: Yes normal visual inspection Chest: Chest palpation & inspection: normal inspection of the chest Resp: Auscultation: clear to auscultation bilaterally Cardio: Palpation: normal PMI Heart sounds: S1 normal heart sound present, S2 normal heart sound present, no gallops, Murmur heart sound present systolic I/ and at the right sternal border and no rubs GI: Palpation (GI): Soft to palpation Back/Spine/Pelvis: Other: unremarkable Skin: General skin exam: no rashes or lesions noted Neuro: General: patient oriented x3 Extrem: General: Yes normal to inspection Psych: Mental Status: mental status grossly normal Objective Labs and Meds 03/26/24 05:11 03/26/24 05:11 Lab results: Laboratory Results - last 24 hr 03/25/24 03/25/24 03/25/24 12:45 13:11 14:23 WBC 5.4 6.3 RBC 3.06 L 2.97 L Hgb 8.9 L 8.7 L Hct 26.6 L 25.8 L MCV 86.9 86.9 MCH 29.1 29.3 MCHC 33.5 33.7 RDW 14.9 14.9 Plt Count 181 185 MPV 9.0 L 9.5 Immature Gran % (Auto) 0.2 0.3 Neut % (Auto) 71.3 68.0 Lymph % (Auto) 19.1 L 20.5 [place] % (Auto) 7.7 9.1 Eos % (Auto) 1.5 1.9 Baso % (Auto) 0.2 0.2 Lymph # (Auto) 1.0 L 1.3 [place] # (Auto) 0.4 0.6 Eos # (Auto) 0.1 0.1 Baso # (Auto) 0.0 0.0 Abs Immat Gran (auto) 0.01 0.02 Absolute Neuts (auto) 3.9 4.3 Absolute Nucleated RBC 0.000 0.000 Nucleated RBC % (auto) 0.0 0.0 PT 13.6 H D INR 1.1 APTT 30.3 Sodium 134 L Potassium 4.0 Chloride 101 Carbon Dioxide 24 Anion Gap 13 BUN 17 H Creatinine 1.21 Estim Creat Clear Calc 40.2 Estimated GFR 57 POC Glucose Random Glucose 151 H Calcium 9.0 Magnesium 1.5 L Iron 35 L TIBC 219 L % Saturation 16 Unsat Iron Binding 184 Total Bilirubin 0.5 AST 19 ALT 21 Alkaline Phosphatase 80 Total Protein 6.0 L Albumin 3.5 Lipase 35 Urine Color Urine Appearance Urine pH Ur Specific [place] Urine Protein Urine Glucose (UA) Urine Ketones Urine Blood Urine Nitrite Ur Leukocyte Esterase Stool Occult Blood Blood Type O Positive Antibody Screen NEGATIVE 03/25/24 03/25/24 03/25/24 14:24 16:09 16:12 WBC RBC Hgb Hct MCV MCH MCHC RDW Plt Count MPV Immature Gran % (Auto) Neut % (Auto) Lymph % (Auto) [place] % (Auto) Eos % (Auto) Baso % (Auto) Lymph # (Auto) [place] # (Auto) Eos # (Auto) Baso # (Auto) Abs Immat Gran (auto) Absolute Neuts (auto) Absolute Nucleated RBC Nucleated RBC % (auto) PT INR APTT Sodium Potassium Chloride Carbon Dioxide Anion Gap BUN Creatinine Estim Creat Clear Calc Estimated GFR POC Glucose 58 L* Random Glucose Calcium Magnesium Iron TIBC % Saturation Unsat Iron Binding Total Bilirubin AST ALT Alkaline Phosphatase Total Protein Albumin Lipase Urine Color Yellow Urine Appearance Clear Urine pH 5.5 Ur Specific [place] <= 1.005 Urine Protein Negative Urine Glucose (UA) Negative Urine Ketones Negative Urine Blood Negative Urine Nitrite Negative Ur Leukocyte Esterase Negative Stool Occult Blood NEGATIVE Blood Type Antibody Screen 03/25/24 03/25/24 03/25/24 17:07 17:26 18:24 WBC RBC Hgb 9.4 L Hct 28.3 L MCV MCH MCHC RDW Plt Count MPV Immature Gran % (Auto) Neut % (Auto) Lymph % (Auto) [place] % (Auto) Eos % (Auto) Baso % (Auto) Lymph # (Auto) [place] # (Auto) Eos # (Auto) Baso # (Auto) Abs Immat Gran (auto) Absolute Neuts (auto) Absolute Nucleated RBC Nucleated RBC % (auto) PT INR APTT Sodium Potassium Chloride Carbon Dioxide Anion Gap BUN Creatinine Estim Creat Clear Calc Estimated GFR POC Glucose 108 152 H Random Glucose Calcium Magnesium Iron TIBC % Saturation Unsat Iron Binding Total Bilirubin AST ALT Alkaline Phosphatase Total Protein Albumin Lipase Urine Color Urine Appearance Urine pH Ur Specific [place] Urine Protein Urine Glucose (UA) Urine Ketones Urine Blood Urine Nitrite Ur Leukocyte Esterase Stool Occult Blood Blood Type Antibody Screen 03/25/24 03/26/24 03/26/24 19:54 05:11 06:58 WBC 4.8 RBC 3.11 L Hgb 9.1 L Hct 27.3 L MCV 87.8 MCH 29.3 MCHC 33.3 RDW 14.9 Plt Count 178 MPV 9.6 Immature Gran % (Auto) Neut % (Auto) Lymph % (Auto) [place] % (Auto) Eos % (Auto) Baso % (Auto) Lymph # (Auto) [place] # (Auto) Eos # (Auto) Baso # (Auto) Abs Immat Gran (auto) Absolute Neuts (auto) Absolute Nucleated RBC 0.000 Nucleated RBC % (auto) 0.0 PT INR APTT Sodium 137 Potassium 4.3 Chloride 102 Carbon Dioxide 29 Anion Gap 10 L BUN 18 H Creatinine 1.17 Estim Creat Clear Calc 41.6 Estimated GFR 60 POC Glucose 204 H 149 H Random Glucose 193 H Calcium 9.1 Magnesium 1.8 Iron TIBC % Saturation Unsat Iron Binding Total Bilirubin 0.3 AST 17 ALT 19 Alkaline Phosphatase 78 Total Protein 5.7 L Albumin 3.3 L Lipase Urine Color Urine Appearance Urine pH Ur Specific [place] Urine Protein Urine Glucose (UA) Urine Ketones Urine Blood Urine Nitrite Ur Leukocyte Esterase Stool Occult Blood Blood Type Antibody Screen ECG Interpretation: EKG with sinus rhythm at 73/Min with first-degree heart block and lateral/anterolateral T inversions and downsloping STs. PVC. Imaging Radiologist's impression: Impressions Head CT 03/25/24 15:28 IMPRESSION: No acute intracranial hemorrhage or territorial loss of durham-white differentiation. Generalized cerebral volume loss with moderate to severe chronic microvascular ischemic change. Assessment and Plan (1) Acute GI bleeding: Status: Acute (2) Atrial fibrillation: Status: Acute (3) Current use of anticoagulant therapy: Status: Acute (4) Ischemic cardiomyopathy with implantable cardioverter-defibrillator (ICD): Status: Acute (5) CAD (coronary artery disease): Status: Acute Plan Patient with many cardiac comorbidities as above with GI bleeding. He seems to be on both aspirin and warfarin at baseline. If he indeed is continuing to have GI bleed, then may hold both as recommended by GI. When cleared, may resume only warfarin and not aspirin. As an outpatient, he will need evaluation for Watchman device. After that, he may be able to just use single antiplatelet drug. 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 Procedures Date of Service Date of Service: 03/26/24
--- NOTE | 2024-03-26 10:27 | PM.DS ---
DS: Providers Provider Date of Service: 03/26/24 Date of admission: 03/25/24 14:57 Primary care physician: Unknown Physician Consults: 03/25/24 16:23 Consult to Cardiology Routine Consulting Provider: [facility] Reason for consultation: GI bleed on warfarin, family wants to discuss whether to continue DS: Diagnosis Discharge Diagnosis (1) Acute GI bleeding: Status: Acute (2) Atrial fibrillation: Status: Acute (3) Current use of anticoagulant therapy: Status: Acute (4) Ischemic cardiomyopathy with implantable cardioverter-defibrillator (ICD): Status: Acute (5) CAD (coronary artery disease): Status: Acute DS: Summary Hospital Course Hospital Course: 83-year-old man presenting to the ER for complaints of one episode of black stool and ongoing fatigue. He was recently discharged from [facility] and at that time had a colonoscopy and endoscopy. His aspirin and warfarin were placed on hold and he was recommended iron supplementation. Patient reported that he continues to have weakness and dizziness upon rising from sitting to standing. He reported some headache but denied fever, chills, nausea, vomiting, shortness breath, chest pain, visual changes. H&H is 8.7 and 25.8, iron 35, magnesium 1.5. Head CT is negative for any acute intracranial abnormality. Patient was given IV magnesium in the ER. He will be admitted for further management and treatment of acute GI bleed. 83-year-old man treated for acute blood loss anemia secondary to suspected GI bleed. Patient reported 1 episode of black stool. His H&H had remained stable during his hospitalization. His warfarin and aspirin while on hold. Discussed case with Cardiology, suggested continuing warfarin if approved by GI and joe to stop aspirin. Patient can follow up with his Cardiology regarding a possible watchman's device. Also discussed case with Gastroenterology, Dr. Zamudio who suggested continuing the warfarin and iron. The plan will be to discharge patient home, he is in agreement with this and he should follow-up with Gastroenterology for possible outpatient capsule endoscopy. Acute magnesemia. Repleted with 2 g of IV magnesium Paroxysmal atrial fibrillation. Rate controlled. Continue warfarin and carvedilol Diabetes mellitus type 2. Continue glipizide and metformin GERD. Continue PPI Hypertension. Continue lisinopril, furosemide Coronary artery disease. Continue statin, aspirin stopped due to risk of bleeding as patient is on warfarin Time Attestation Discharge Coordination Time (in mins): 32 Quality: Safe Use of Opioids Does Pt have an Active Cancer Diagnosis on the Problem List?: No Quality: Stroke Does the patient have a stroke diagnosis?: No Physical Exam Vital Signs: Vital Signs: Last Vital Signs Temp 98.1 F 03/26/24 06:58 Pulse 76 03/26/24 08:12 Resp 16 03/26/24 06:58 BP 123/60 03/26/24 08:12 Pulse Ox 97 03/26/24 06:58 O2 Del Method Room Air 03/26/24 06:58 BMI result Body Mass Index 23.3 Appearing in no acute distress head is normocephalic atraumatic eyes pupils are PERRLA sclera is anicteric mouth throat mucous membranes are intact and moist neck is supple no lymphadenopathy, no JVD noted lung sounds are clear to auscultation heart regular rate rhythm, clear S1, S2 positive bowel sounds, abdomen is soft, nontender neuro patient is alert x3, no focal deficits DS: Data Data Completed and Pending Labs on day of discharge: Laboratory Results - last 24 hr 03/25/24 03/25/24 03/25/24 12:45 13:11 14:23 WBC 5.4 6.3 RBC 3.06 L 2.97 L Hgb 8.9 L 8.7 L Hct 26.6 L 25.8 L MCV 86.9 86.9 MCH 29.1 29.3 MCHC 33.5 33.7 RDW 14.9 14.9 Plt Count 181 185 MPV 9.0 L 9.5 Immature Gran % (Auto) 0.2 0.3 Neut % (Auto) 71.3 68.0 Lymph % (Auto) 19.1 L 20.5 [place] % (Auto) 7.7 9.1 Eos % (Auto) 1.5 1.9 Baso % (Auto) 0.2 0.2 Lymph # (Auto) 1.0 L 1.3 [place] # (Auto) 0.4 0.6 Eos # (Auto) 0.1 0.1 Baso # (Auto) 0.0 0.0 Abs Immat Gran (auto) 0.01 0.02 Absolute Neuts (auto) 3.9 4.3 Absolute Nucleated RBC 0.000 0.000 Nucleated RBC % (auto) 0.0 0.0 PT 13.6 H D INR 1.1 APTT 30.3 Sodium 134 L Potassium 4.0 Chloride 101 Carbon Dioxide 24 Anion Gap 13 BUN 17 H Creatinine 1.21 Estim Creat Clear Calc 40.2 Estimated GFR 57 POC Glucose Random Glucose 151 H Calcium 9.0 Magnesium 1.5 L Iron 35 L TIBC 219 L % Saturation 16 Unsat Iron Binding 184 Total Bilirubin 0.5 AST 19 ALT 21 Alkaline Phosphatase 80 Total Protein 6.0 L Albumin 3.5 Lipase 35 Urine Color Urine Appearance Urine pH Ur Specific [place] Urine Protein Urine Glucose (UA) Urine Ketones Urine Blood Urine Nitrite Ur Leukocyte Esterase Stool Occult Blood Blood Type O Positive Antibody Screen NEGATIVE 03/25/24 03/25/24 03/25/24 14:24 16:09 16:12 WBC RBC Hgb Hct MCV MCH MCHC RDW Plt Count MPV Immature Gran % (Auto) Neut % (Auto) Lymph % (Auto) [place] % (Auto) Eos % (Auto) Baso % (Auto) Lymph # (Auto) [place] # (Auto) Eos # (Auto) Baso # (Auto) Abs Immat Gran (auto) Absolute Neuts (auto) Absolute Nucleated RBC Nucleated RBC % (auto) PT INR APTT Sodium Potassium Chloride Carbon Dioxide Anion Gap BUN Creatinine Estim Creat Clear Calc Estimated GFR POC Glucose 58 L* Random Glucose Calcium Magnesium Iron TIBC % Saturation Unsat Iron Binding Total Bilirubin AST ALT Alkaline Phosphatase Total Protein Albumin Lipase Urine Color Yellow Urine Appearance Clear Urine pH 5.5 Ur Specific [place] <= 1.005 Urine Protein Negative Urine Glucose (UA) Negative Urine Ketones Negative Urine Blood Negative Urine Nitrite Negative Ur Leukocyte Esterase Negative Stool Occult Blood NEGATIVE Blood Type Antibody Screen 03/25/24 03/25/24 03/25/24 17:07 17:26 18:24 WBC RBC Hgb 9.4 L Hct 28.3 L MCV MCH MCHC RDW Plt Count MPV Immature Gran % (Auto) Neut % (Auto) Lymph % (Auto) [place] % (Auto) Eos % (Auto) Baso % (Auto) Lymph # (Auto) [place] # (Auto) Eos # (Auto) Baso # (Auto) Abs Immat Gran (auto) Absolute Neuts (auto) Absolute Nucleated RBC Nucleated RBC % (auto) PT INR APTT Sodium Potassium Chloride Carbon Dioxide Anion Gap BUN Creatinine Estim Creat Clear Calc Estimated GFR POC Glucose 108 152 H Random Glucose Calcium Magnesium Iron TIBC % Saturation Unsat Iron Binding Total Bilirubin AST ALT Alkaline Phosphatase Total Protein Albumin Lipase Urine Color Urine Appearance Urine pH Ur Specific [place] Urine Protein Urine Glucose (UA) Urine Ketones Urine Blood Urine Nitrite Ur Leukocyte Esterase Stool Occult Blood Blood Type Antibody Screen 03/25/24 03/26/24 03/26/24 19:54 05:11 06:58 WBC 4.8 RBC 3.11 L Hgb 9.1 L Hct 27.3 L MCV 87.8 MCH 29.3 MCHC 33.3 RDW 14.9 Plt Count 178 MPV 9.6 Immature Gran % (Auto) Neut % (Auto) Lymph % (Auto) [place] % (Auto) Eos % (Auto) Baso % (Auto) Lymph # (Auto) [place] # (Auto) Eos # (Auto) Baso # (Auto) Abs Immat Gran (auto) Absolute Neuts (auto) Absolute Nucleated RBC 0.000 Nucleated RBC % (auto) 0.0 PT INR APTT Sodium 137 Potassium 4.3 Chloride 102 Carbon Dioxide 29 Anion Gap 10 L BUN 18 H Creatinine 1.17 Estim Creat Clear Calc 41.6 Estimated GFR 60 POC Glucose 204 H 149 H Random Glucose 193 H Calcium 9.1 Magnesium 1.8 Iron TIBC % Saturation Unsat Iron Binding Total Bilirubin 0.3 AST 17 ALT 19 Alkaline Phosphatase 78 Total Protein 5.7 L Albumin 3.3 L Lipase Urine Color Urine Appearance Urine pH Ur Specific [place] Urine Protein Urine Glucose (UA) Urine Ketones Urine Blood Urine Nitrite Ur Leukocyte Esterase Stool Occult Blood Blood Type Antibody Screen Discharge Plan Discharge Anticipated Discharge Date/Time: 03/26/24 10:23 Patient Disposition: Home, Self-Care Discharge Diagnosis: Acute blood loss anemia Iron deficiency anemia Hypomagnesemia Referrals: Rainer Roa MD [Physician] - 1 Week (capsule endoscopy ) Discharge Medications: Continued glipizide 10 mg tablet 10 mg PO BID Qty: 180 1RF atorvastatin 40 mg tablet 40 mg PO DAILY Qty: 90 3RF docusate sodium [Colace] 100 mg capsule 100 mg PO DAILY PRN (Reason: Constipation) carvedilol 12.5 mg tablet 12.5 mg PO BID Rx Instructions: must administer with a meal/food furosemide 20 mg tablet 20 mg PO DAILY ferrous sulfate 324 mg (65 mg iron) Tablet,Delayed Release (Dr/Ec) 324 mg PO BIDWM 30 Days Qty: 60 0RF omeprazole 20 mg Capsule,Delayed Release(Dr/Ec) 20 mg PO DAILY@0630 30 Days Qty: 30 0RF polyethylene glycol 3350 [Miralax] 17 gram/dose powder 17 g PO DAILY PRN (Reason: constipation) Qty: 119 0RF warfarin 5 mg tablet 5 mg PO DAILY@1800 Protocol: Dose Management Condition: Wednesday (Week One) Dose/Route: 5 mg Instruction: 1 x 5 mg tablet Condition: Wednesday Dose/Route: 7.5 mg Instruction: 1.5 x 5 mg tablets Condition: Wednesday Dose/Route: 5 mg Instruction: 1 x 5 mg tablet Condition: Wednesday Dose/Route: 7.5 mg Instruction: 1.5 x 5 mg tablets Condition: Dose/Route: 5 mg Instruction: 1 x 5 mg tablet Condition: Wednesday Dose/Route: 7.5 mg Instruction: 1.5 x 5 mg tablets Condition: Wednesday Dose/Route: 0 mg Instruction: 0 tablets Condition: Wednesday (Week Two) Dose/Route: 2.5 mg Instruction: 0.5 x 5 mg tablets Condition: Wednesday Dose/Route: 7.5 mg Instruction: 1.5 x 5 mg tablets Condition: Wednesday Dose/Route: 5 mg Instruction: 1 x 5 mg tablet Condition: Wednesday Dose/Route: 7.5 mg Instruction: 1.5 x 5 mg tablets Condition: Dose/Route: 5 mg Instruction: 1 x 5 mg tablet Condition: Wednesday Dose/Route: 7.5 mg Instruction: 1.5 x 5 mg tablets Condition: Wednesday Dose/Route: 5 mg Instruction: 1 x 5 mg tablet Protocol Text: Adjustment Start Date: Wednesday03/17/24 INR Value: 3.9 INR Date: 03/17/24 Recheck Date: 03/24/24 Patient Comments: JUST INITIATED WARFARIN 06/11/23 lisinopril 10 mg tablet 10 mg PO DAILY metformin 500 mg tablet 1,000 mg PO BID magnesium oxide 400 mg (241.3 mg magnesium) tablet 400 mg PO BID Discontinued aspirin [Adult Aspirin Regimen] 81 mg tablet,delayed release (DR/EC) 81 mg PO DAILY Hold Instructions: resume on Wednesday Discharge Orders: Discharge Order (Routine); Ordered 03/26/24 Ordered By: Sonia Mendoza Diet: Advance to usual diet Activity on Discharge: As tolerated Stand Alone Forms: Patient Portal Discharge page Print Language: Bengali Care Plan Goals: Follow-up with gastroenterology for possible outpatient capsule endoscopy Follow-up with cardiology for other possible options of anticoagulation including watchman's device Your aspirin has been stopped to avoid the risk of further GI bleeding Continue warfarin as prescribed Health Concerns: Acute blood loss anemia Iron deficiency anemia Hypomagnesemia Plan of Treatment: Follow-up with primary care provider as needed Take all medications as prescribed Assessment: See discharge summary
[2024-03-26 11:16] LABS: Glucose, Whole Blood 293 mg/dL (60-115)
== END 2024-03-26 11:32 | disposition home or self-care (01) ==
LOC: HO.ED 14:28 → HO.EDOVER 15:01 → HO.S3 16:47
PROVIDERS: Physician Assistant; Physician Assistant Medical; Admitting Provider Nurse Practitioner Acute Care; Emergency Provider Emergency Medicine; Visit Provider Nurse Practitioner Acute Care
DX: D62 Acute posthemorrhagic anemia (principal); D50.8 Other iron deficiency anemias; E83.42 Hypomagnesemia; I48.0 Paroxysmal atrial fibrillation; K92.1 Melena; E11.9 Type 2 diabetes mellitus without complications; I25.10 Atherosclerotic heart disease of native coronary artery without angina pectoris; I25.5 Ischemic cardiomyopathy; I10 Essential (primary) hypertension; E78.5 Hyperlipidemia, unspecified; R53.83 Other fatigue; R53.1 Weakness; R42 Dizziness and giddiness; Z79.01 Long term (current) use of anticoagulants; Z79.899 Other long term (current) drug therapy; R51.9 Headache, unspecified
CPT/HCPCS: 36415; 70450; 80053; 81003; 82272; 82947; 83540; 83690; 83735; 85014; 85018; 85025; 85027; 85610; 85730; 86850; 86900; 86901; 93005; 96365; 96366; 99221; 99285; J3475

== ENCOUNTER → 2024-03-25 14:57 | Outpatient (BNV) | payer MEDICARE, SELFPAY | PROVIDERS: Admitting Provider Nurse Practitioner Acute Care; Emergency Provider Emergency Medicine; Visit Provider Internal Medicine | DX: K92.2 Gastrointestinal hemorrhage, unspecified (principal); I48.91 Unspecified atrial fibrillation; Z79.01 Long term (current) use of anticoagulants; I25.5 Ischemic cardiomyopathy; Z95.810 Presence of automatic (implantable) cardiac defibrillator; I25.10 Atherosclerotic heart disease of native coronary artery without angina pectoris | CPT/HCPCS: 93010; 99223 ==

== ENCOUNTER → 2024-03-25 14:57 | Outpatient (BNV) | payer MEDICARE, SELFPAY | PROVIDERS: Admitting Provider Nurse Practitioner Acute Care; Emergency Provider Emergency Medicine; Visit Provider Nurse Practitioner Acute Care | DX: K92.2 Gastrointestinal hemorrhage, unspecified (principal); I48.91 Unspecified atrial fibrillation; Z79.01 Long term (current) use of anticoagulants; I25.5 Ischemic cardiomyopathy; Z95.810 Presence of automatic (implantable) cardiac defibrillator; I25.10 Atherosclerotic heart disease of native coronary artery without angina pectoris | CPT/HCPCS: 99223; 99239 ==

== ENCOUNTER 2024-03-27 08:29 | Outpatient (AMB) | payer MEDICARE, SELFPAY ==
--- NOTE | 2024-03-27 08:51 | MHC.OFFVISCO ---
Intake Intake Visit Reasons: Anticoagulation Allergies isosorbide Adverse Reaction (Unknown, Verified 03/25/24 12:35) dizziness Nursing Note Pt to [facility] today after going to ER 03/25/24 with dark stools and was admitted with GIB. Warfarin was held and ASA d/c'd. LD of warfarin was Wed03/24/24. Hgb/Hct 8.7/25.8 on discharge. Did not require transfusion. Discharged on Omeprazole and Ferrous Sulfate INR 1.1?out of therapeutic range of 2-3 Medications and supplements reviewed Patient status: Pt discouraged Medications or supplements: as above Diet: usual diet for pt Denies any signs and symptoms of bleeding or clotting or unusual bruising Bleeding, bruising, clotting discussed Nutritional guidance given: avoid greens until we see how next INR results. Review food list and have a serving of foods daily that raise the INR. Dose: 7.5mg today, tomorrow and next day, then 5mg, then return to [facility]. F/U INR Date : 03/30/24?? Patient verbalizing understanding of instructions given. Anti-Coag Initial Assessment Social Hx Patient Tobacco Use Status: Never used Tobacco alcohol intake: former Alcohol intake frequency: does not drink Cardiovascular Hx: HTN, Angina, [place], Arrhythmias, Cardiomyopathy and Other Endocrine Hx: Diabetes Blood Disorder Hx: Hyperlipidemia Hx: Kidney Disease Cancer HX: No Psych. Illness/Depression: Yes Coding Level of Care Code Est Patient Level 2 Diagnoses Current use of anticoagulant therapy Z79.01 Assessment & Plan Assessment & Plan (1) Current use of anticoagulant therapy: Code(s): Z79.01 - prison (current) use of anticoagulants Category: Medical
[2024-03-27 10:05] LABS: Prothrombin Time Whole Bld POC 14.4 sec (11.1-13.5); ~PT, ~INR - Anti Coag Clinic 1.2 (0.9-1.1)
== END 2024-03-27 13:06 | disposition home or self-care (01) ==
LOC: HO.ACS 08:29
PROVIDERS: Visit Provider Internal Medicine
DX: Z79.01 Long term (current) use of anticoagulants (principal)

== ENCOUNTER → 2024-03-27 08:29 | Outpatient (BNVA) | payer MEDICARE, SELFPAY | PROVIDERS: Visit Provider Internal Medicine | DX: I48.0 Paroxysmal atrial fibrillation (principal); Z51.81 Encounter for therapeutic drug level monitoring; Z79.01 Long term (current) use of anticoagulants | CPT/HCPCS: 85610; 99212 ==

== ENCOUNTER 2024-03-29 14:25 | Outpatient (REF) | payer MEDICARE, SELFPAY ==
[2024-03-29 14:47] LABS: MANUAL DIFF FLAG NO
[2024-03-29 15:18] LABS: Basophils Percent Auto 0.3 % (0-2); Eosinophils Absolute Auto 0.1 X10*3/uL (0.0-0.4); Eosinophils Percent Auto 1.7 % (0-4); Hematocrit 28.7 % (42.0-52.0); Hemoglobin 9.3 g/dl (14.0-18.0); Imm Gran Abs Auto 0.01 X10*3/uL (0.00-0.03); Imm Gran Pct Auto 0.2 % (0.0-0.4); Lymphocytes Percent Auto 16.7 % (20-40); Mean Corpuscular HGB Conc 32.4 g/dl (31.0-36.0); Mean Corpuscular Hemoglobin 28.9 pg (27.0-33.0); Mean Corpuscular Volume 89.1 fL (80.0-98.0); Mean Platelet Volume 9.4 fL (9.4-12.4); Monocytes Absolute Auto 0.6 X10*3/uL (0.1-1.2); Monocytes Percent Auto 10.7 % (2-11); Neutrophils Absolute Auto 4.1 x10*3/uL (2.0-8.3); Neutrophils Percent Auto 70.4 % (45-73); Platelet Count 197 X10*3/uL (160-400); Red Blood Count 3.22 X10*6/uL (4.60-5.80); White Blood Count 5.9 X10*3/uL (4.8-10.8)
[2024-03-29 15:53] LABS: Anion Gap 13 (12-20); Blood Urea Nitrogen 18 mg/dL (9-16); Carbon Dioxide 26 mmol/L (22-29); Chloride 100 mmol/L (96-108); Estimated Glomerular Filt Rate 48; Iron 26 mcg/dL (45-160); Magnesium 1.8 mg/dL (1.6-2.6); Percent Iron Saturation 11 % (15-50); Potassium 4.8 mmol/L (3.3-5.1); Sodium 134 mmol/L (135-145); Total Iron Binding Capacity 240 mcg/dL (228-428); Unsaturated Iron Binding 214 ug/dL
[2024-03-29 16:02] LABS: Ferritin 12 ng/mL (20-250)
[2024-04-01 20:23] LABS: Calcitonin 4 pg/mL (<=10)
== END 2024-03-29 14:26 | disposition home or self-care (01) ==
LOC: HO.LAB 14:25
PROVIDERS: PCP Internal Medicine; Visit Provider Internal Medicine
DX: I48.91 Unspecified atrial fibrillation (principal); E83.42 Hypomagnesemia; I50.9 Heart failure, unspecified
CPT/HCPCS: 36415; 80051; 82308; 82565; 82728; 83540; 83735; 84520; 85025

== ENCOUNTER 2024-03-30 08:23 | Outpatient (AMB) | payer MEDICARE, SELFPAY ==
[2024-03-30 08:45] LABS: Prothrombin Time Whole Bld POC 13.2 sec (11.1-13.5); ~PT, ~INR - Anti Coag Clinic 1.1 (0.9-1.1)
--- NOTE | 2024-03-30 09:33 | MHC.OFFVISCO ---
Intake Intake Visit Reasons: Anticoagulation Allergies isosorbide Adverse Reaction (Unknown, Verified 03/30/24 08:25) dizziness Medication List - Last Reconciled 03/30/24 by Aster Gates RN atorvastatin 40 mg PO DAILY carvedilol 12.5 mg PO BID docusate sodium (Colace) 100 mg PO DAILY PRN ferrous sulfate 324 mg PO BIDWM 30 days furosemide 20 mg PO DAILY glipizide 10 mg PO BID lisinopril 10 mg PO DAILY magnesium oxide 400 mg PO BID metformin 1,000 mg PO BID omeprazole 20 mg PO DAILY@0630 30 days polyethylene glycol 3350 (Miralax) 17 grams PO DAILY PRN warfarin 5 mg See Protocol PO DAILY@1800 Nursing Note INR 1.1 out of therapeutic range Medications and supplements reviewed Patient status: s/p GI bleed ? cause diarrhea from virus or too much magnesium - unknown, no further black or bloody stools, no BM today yet, stool [place] yesterday. no pain bloating or gas, colonoscopy report stated colonoscopy WNL but had mild Gastritis for the Upper. he states he feels that none of his doctors know him or care, states he has stopped all of his medications, he was advised to discuss with MD, he was advised to at least check his blood sugars and take that, should also discuss his b/p and heart meds with md HR 60 and regular and B/p 140/ 60 Medications or supplements: Off Aspirin states he has not taken any medications since the weekend when he was discharged Diet: able to eat, no changes Denies any signs and symptoms of bleeding or clotting or unusual bruising Bleeding, bruising, clotting discussed Nutritional guidance given: avoid any greens today and tomorrow, eat a mix of fruits and vegetables Dose: start 5mg daily x 3 days/ 7.5mg wednesday and recheck wednesday04/03/24 F/U INR Date: 04/03/24 ?? Patient verbalizing understanding of instructions given. t/c to PCP office spoke with DUC Howard regarding pt status, t/c to alum mixer spoke with nurse Dunaway regarding pt status to convey to MD, t/c to pt daughter with pt update. Waiting to hear back from providers for future plan of care from providers Anti-Coag Initial Assessment Social Hx Patient Tobacco Use Status: Never used Tobacco alcohol intake: former Alcohol intake frequency: does not drink Cardiovascular Hx: HTN, Angina, [place], Arrhythmias, Cardiomyopathy and Other Endocrine Hx: Diabetes Blood Disorder Hx: Hyperlipidemia Hx: Kidney Disease Cancer HX: No Psych. 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
== END 2024-03-30 11:39 | disposition home or self-care (01) ==
LOC: HO.ACS 08:23
PROVIDERS: PCP Internal Medicine; Visit Provider Internal Medicine
DX: Z79.01 Long term (current) use of anticoagulants (principal)

== ENCOUNTER → 2024-03-30 08:23 | Outpatient (BNVA) | payer MEDICARE, SELFPAY | PROVIDERS: PCP Internal Medicine; Visit Provider Internal Medicine | DX: I48.0 Paroxysmal atrial fibrillation (principal); Z79.01 Long term (current) use of anticoagulants; Z51.81 Encounter for therapeutic drug level monitoring | CPT/HCPCS: 85610; 99211 ==

== ENCOUNTER 2024-04-03 08:31 | Outpatient (AMB) | payer MEDICARE, SELFPAY ==
[2024-04-03 09:01] LABS: Prothrombin Time Whole Bld POC 15.9 sec (11.1-13.5); ~PT, ~INR - Anti Coag Clinic 1.3 (0.9-1.1)
--- NOTE | 2024-04-03 09:02 | MHC.OFFVISCO ---
Intake Intake Visit Reasons: Anticoagulation Allergies isosorbide Adverse Reaction (Unknown, Verified 04/03/24 08:45) dizziness Medication List - Last Reconciled 04/03/24 by Aster Gates RN atorvastatin 40 mg PO DAILY carvedilol 12.5 mg PO BID docusate sodium (Colace) 100 mg PO DAILY PRN ferrous sulfate 324 mg PO BIDWM 30 days furosemide 20 mg PO DAILY glipizide 10 mg PO BID lisinopril 10 mg PO DAILY magnesium oxide 400 mg PO BID metformin 1,000 mg PO BID omeprazole 20 mg PO DAILY@0630 30 days polyethylene glycol 3350 (Miralax) 17 grams PO DAILY PRN warfarin 5 mg See Protocol PO DAILY@1800 Nursing Note INR 1.3 out of therapeutic range Medications and supplements reviewed Patient status: states bowels are getting better not as black, he states he has resumed his medications states he is eating but his blood sugars are all over the place low in the morning 100s and high in the evenings, enc an endocrin doctor gave number to give the his daughter to call, HE STATES THAT HE DOES 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 HIS DAUGHTER STATES HE MEANS HE HAS TO TAKE CARE OF HIMSELF SO SHE DOESN'T HAVE TO. Medications or supplements: resumed perpt Diet: states he is eating Denies any signs and symptoms of bleeding or clotting or unusual bruising Bleeding, bruising, clotting discussed Nutritional guidance given: cont to eat and monitor blood sugars Dose: increase slightly 7.5mg x 2 days/ 5mg days F/U INR Date: 04/07/24Wednesday?? Patient verbalizing understanding of instructions given CALL TO PCP - NO ANSWER AT THIS TIME - WILL CALL BACK T/C TO DAUGHTER SHE IS AWARE OF THE ABOVE 1430 - received t/c from PCP office nurse Melvi- she states she will convey msg to PCP regarding the above and request for Endocrin. Anti-Coag Initial Assessment Social Hx Patient Tobacco Use Status: Never used Tobacco alcohol intake: former Alcohol intake frequency: does not drink Cardiovascular Hx: HTN, Angina, [place], Arrhythmias, Cardiomyopathy and Other Endocrine Hx: Diabetes Blood Disorder Hx: Hyperlipidemia Hx: Kidney Disease Cancer HX: No Psych. 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
== END 2024-04-03 09:17 | disposition home or self-care (01) ==
LOC: HO.ACS 08:31
PROVIDERS: PCP Internal Medicine; Visit Provider Internal Medicine
DX: Z79.01 Long term (current) use of anticoagulants (principal)

== ENCOUNTER → 2024-04-03 08:31 | Outpatient (BNVA) | payer MEDICARE, SELFPAY | PROVIDERS: PCP Internal Medicine; Visit Provider Internal Medicine | DX: I48.0 Paroxysmal atrial fibrillation (principal); Z79.01 Long term (current) use of anticoagulants; Z51.81 Encounter for therapeutic drug level monitoring | CPT/HCPCS: 85610; 99211 ==

== ENCOUNTER 2024-04-07 08:21 | Outpatient (AMB) | payer MEDICARE, SELFPAY ==
[2024-04-07 08:53] LABS: Prothrombin Time Whole Bld POC 17.1 sec (11.1-13.5); ~PT, ~INR - Anti Coag Clinic 1.4 (0.9-1.1)
--- NOTE | 2024-04-07 09:08 | MHC.OFFVISCO ---
Intake Intake Visit Reasons: Anticoagulation Allergies isosorbide Adverse Reaction (Unknown, Verified 04/07/24 08:33) dizziness Medication List - Last Reconciled 04/07/24 by Sherie Ramirez RN atorvastatin 40 mg PO DAILY carvedilol 12.5 mg PO BID docusate sodium (Colace) 100 mg PO DAILY PRN ferrous sulfate 324 mg PO BIDWM 30 days furosemide 20 mg PO DAILY glipizide 10 mg PO BID lisinopril 10 mg PO DAILY magnesium oxide 400 mg PO BID metformin 1,000 mg PO BID omeprazole 20 mg PO DAILY@0630 30 days polyethylene glycol 3350 (Miralax) 17 grams PO DAILY PRN warfarin 5 mg See Protocol PO DAILY@1800 Nursing Note INR 1.4?out of therapeutic range of 2-3 Medications and supplements reviewed: pt states he is taking all his medicine as prescribed but has not taken the warfarin yet today. He c/o frequent dizziness. BP 116/68, HR 70 regular. States he is still having dark stools. Patient status: frustrated. States his MD is in [place] but he goes to [facility] and the doctors are not communicating. Medications or supplements: no changes, Diet: usual diet Bleeding, bruising, clotting discussed. No horacio rectal bleeding. Is on ferrous sulfate. Last Hgb/Hct on 03/29 was 9.3/29.7 Nutritional guidance given: food list reviewed. To avoid greens. Pt does not eat greens normally. Suggestions given for foods that raise the INR. Food list given to pt. Dose: 7.5mg today (5mg), 7.5mg tomorrow (5mg) and usual dose of 7.5mg on Wednesday. F/U INR Date : Wednesday04/10/24?? Patient verbalizing understanding of instructions given. T/C to Ria Bryant MD. Spoke to fede Marrero. Reported BP/HR. ALso reported pt c/o frequent dizziness S/P GIB 03/22/24-03/23/24 with dark stools. Pt is on iron tablets. Last Hgb/Hct on 03/29/24 reported as above. Anti-Coag Initial Assessment Social Hx Patient Tobacco Use Status: Never used Tobacco alcohol intake: former Alcohol intake frequency: does not drink Cardiovascular Hx: HTN, Angina, [place], Arrhythmias, Cardiomyopathy and Other Endocrine Hx: Diabetes Blood Disorder Hx: Hyperlipidemia Hx: Kidney Disease Cancer HX: No Psych. Illness/Depression: Yes Coding Level of Care Code Est Patient Level 2 Diagnoses Current use of anticoagulant therapy Z79.01 Results AMB INR Fingerstick AMB INR Fingerstick 1.4 Last Edit by Sherie Ramirez RN on 04/07/24 08:46 interface delay Assessment & Plan Assessment & Plan (1) Current use of anticoagulant therapy: Code(s): Z79.01 - care home (current) use of anticoagulants
== END 2024-04-07 09:28 | disposition home or self-care (01) ==
LOC: HO.ACS 08:21
PROVIDERS: PCP Internal Medicine; Visit Provider Internal Medicine
DX: Z79.01 Long term (current) use of anticoagulants (principal)

== ENCOUNTER → 2024-04-07 08:21 | Outpatient (BNVA) | payer MEDICARE, SELFPAY | PROVIDERS: PCP Internal Medicine; Visit Provider Internal Medicine | DX: I48.0 Paroxysmal atrial fibrillation (principal); Z79.01 Long term (current) use of anticoagulants; Z51.81 Encounter for therapeutic drug level monitoring | CPT/HCPCS: 85610; 99212 ==

== ENCOUNTER 2024-04-10 08:32 | Outpatient (AMB) | payer MEDICARE, SELFPAY ==
[2024-04-10 09:00] LABS: Prothrombin Time Whole Bld POC 21.4 sec (11.1-13.5); ~PT, ~INR - Anti Coag Clinic 1.8 (0.9-1.1)
--- NOTE | 2024-04-10 09:04 | MHC.OFFVISCO ---
Intake Intake Visit Reasons: Anticoagulation Allergies isosorbide Adverse Reaction (Unknown, Verified 04/10/24 08:51) dizziness Medication List - Last Reconciled 04/10/24 by Sherie Ramirez RN atorvastatin 40 mg PO DAILY carvedilol 12.5 mg PO BID docusate sodium (Colace) 100 mg PO DAILY PRN ferrous sulfate 324 mg PO BIDWM 30 days furosemide 20 mg PO DAILY glipizide 10 mg PO BID lisinopril 10 mg PO DAILY magnesium oxide 400 mg PO BID metformin 1,000 mg PO BID omeprazole 20 mg PO DAILY@0630 30 days polyethylene glycol 3350 (Miralax) 17 grams PO DAILY PRN warfarin 5 mg See Protocol PO DAILY@1800 Nursing Note INR 1.8?out of therapeutic range of 2-3 Medications and supplements reviewed Patient status: usual state of health Medications or supplements: no changes Diet: usual state of health Denies any signs and symptoms of bleeding or clotting or unusual bruising Bleeding, bruising, clotting discussed Nutritional guidance given: to have a serving of foods from the list that raises the INR Dose: 7.5mg today (5mg) then increase weekly dose to 7.5mg X 3 days and 5mg X 4 days F/U INR Date : 1 week?? Patient verbalizing understanding of instructions given. Anti-Coag Initial Assessment Social Hx Patient Tobacco Use Status: Never used Tobacco alcohol intake: former Alcohol intake frequency: does not drink Cardiovascular Hx: HTN, Angina, [place], Arrhythmias, Cardiomyopathy and Other Endocrine Hx: Diabetes Blood Disorder Hx: Hyperlipidemia Hx: Kidney Disease Cancer HX: No Psych. 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
== END 2024-04-10 09:10 | disposition home or self-care (01) ==
LOC: HO.ACS 08:32
PROVIDERS: PCP Internal Medicine; Visit Provider Internal Medicine
DX: Z79.01 Long term (current) use of anticoagulants (principal)

== ENCOUNTER → 2024-04-10 08:32 | Outpatient (BNVA) | payer MEDICARE, SELFPAY | PROVIDERS: PCP Internal Medicine; Visit Provider Internal Medicine | DX: I48.0 Paroxysmal atrial fibrillation (principal); Z51.81 Encounter for therapeutic drug level monitoring; Z79.01 Long term (current) use of anticoagulants | CPT/HCPCS: 85610; 99211 ==

== ENCOUNTER 2024-04-18 08:19 | Outpatient (AMB) | payer MEDICARE, SELFPAY ==
--- NOTE | 2024-04-18 08:24 | MHC.OFFVISCO ---
Intake Intake Visit Reasons: Anticoagulation Allergies isosorbide Adverse Reaction (Unknown, Verified 04/18/24 08:19) dizziness Medication List - Last Reconciled 04/18/24 by Sonya Tobar RN atorvastatin 40 mg PO DAILY carvedilol 12.5 mg PO BID docusate sodium (Colace) 100 mg PO DAILY PRN ferrous sulfate 324 mg PO BIDWM 30 days furosemide 20 mg PO DAILY glipizide 10 mg PO BID lisinopril 10 mg PO DAILY magnesium oxide 400 mg PO BID metformin 1,000 mg PO BID omeprazole 20 mg PO DAILY@0630 30 days polyethylene glycol 3350 (Miralax) 17 grams PO DAILY PRN warfarin 5 mg See Protocol PO DAILY@1800 Nursing Note INR 1.6-?? out of therapeutic range of 2-3 pt denies missed dose Medications and supplements reviewed Patient status: no c.o Medications or supplements: no changes Diet: same, does not want to do dietary management, he eats the same all the time he states Denies any signs and symptoms of bleeding or clotting or unusual bruising Bleeding, bruising, clotting discussed Nutritional guidance given: no greens, eat reds to raise Dose: increase dose today to 7.5mg and increase weekly dosing to 7.5mg x 5, 5mg x 2 F/U INR Date : wednesday04/21/24?? Patient verbalizing understanding of instructions given. Anti-Coag Initial Assessment Social Hx Patient Tobacco Use Status: Never used Tobacco alcohol intake: former Alcohol intake frequency: does not drink Cardiovascular Hx: HTN, Angina, [place], Arrhythmias, Cardiomyopathy and Other Endocrine Hx: Diabetes Blood Disorder Hx: Hyperlipidemia Hx: Kidney Disease Cancer HX: No Psych. 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
[2024-04-18 08:25] LABS: Prothrombin Time Whole Bld POC 18.7 sec (11.1-13.5); ~PT, ~INR - Anti Coag Clinic 1.6 (0.9-1.1)
== END 2024-04-18 08:37 | disposition home or self-care (01) ==
LOC: HO.ACS 08:19
PROVIDERS: PCP Internal Medicine; Visit Provider Internal Medicine
DX: Z79.01 Long term (current) use of anticoagulants (principal)

== ENCOUNTER → 2024-04-18 08:19 | Outpatient (BNVA) | payer MEDICARE, SELFPAY | PROVIDERS: PCP Internal Medicine; Visit Provider Internal Medicine | DX: I48.0 Paroxysmal atrial fibrillation (principal); Z79.01 Long term (current) use of anticoagulants; Z51.81 Encounter for therapeutic drug level monitoring | CPT/HCPCS: 85610; 99212 ==

== ENCOUNTER → 2024-04-18 14:36 | Outpatient (BNV) | payer MEDICARE, SELFPAY | PROVIDERS: PCP Internal Medicine; Visit Provider Internal Medicine | DX: D50.9 Iron deficiency anemia, unspecified (principal) | CPT/HCPCS: 99204; 99214; G2211 ==

== ENCOUNTER 2024-04-21 08:04 | Outpatient (AMB) | payer MEDICARE, SELFPAY ==
[2024-04-21 08:23] LABS: Prothrombin Time Whole Bld POC 20.6 sec (11.1-13.5); ~PT, ~INR - Anti Coag Clinic 1.7 (0.9-1.1)
--- NOTE | 2024-04-21 08:34 | MHC.OFFVISCO ---
Intake Intake Visit Reasons: Anticoagulation Allergies isosorbide Adverse Reaction (Unknown, Verified 04/21/24 08:14) dizziness Medication List - Last Reconciled 04/21/24 by Aster Gates RN atorvastatin 40 mg PO DAILY carvedilol 12.5 mg PO BID ferrous sulfate 324 mg PO BIDWM 30 days furosemide 20 mg PO DAILY glipizide 10 mg PO BID magnesium oxide 400 mg PO BID metformin 1,000 mg PO BID omeprazole 20 mg PO DAILY@0630 30 days warfarin 5 mg See Protocol PO DAILY@1800 Nursing Note INR: 1.7 in therapeutic range Medications and supplements reviewed No changes in health, diet, medications, or supplements, Denies any signs and symptoms of bleeding or bruising or clotting. Bleeding, bruising, clotting discussed Nutritional guidance given Dose: 5MG X 1 DAY/ 7.5MG X 6 DAYS F/U INR: 1 WEEK Patient verbalizes understanding of instructions given Anti-Coag Initial Assessment Social Hx Patient Tobacco Use Status: Never used Tobacco alcohol intake: former Alcohol intake frequency: does not drink Cardiovascular Hx: HTN, Angina, [place], Arrhythmias, Cardiomyopathy and Other Endocrine Hx: Diabetes Blood Disorder Hx: Hyperlipidemia Hx: Kidney Disease Cancer HX: No Psych. 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
== END 2024-04-21 08:36 | disposition home or self-care (01) ==
LOC: HO.ACS 08:04
PROVIDERS: PCP Internal Medicine; Visit Provider Internal Medicine
DX: Z79.01 Long term (current) use of anticoagulants (principal)

== ENCOUNTER → 2024-04-21 08:04 | Outpatient (BNVA) | payer MEDICARE, SELFPAY | PROVIDERS: PCP Internal Medicine; Visit Provider Internal Medicine | DX: I48.0 Paroxysmal atrial fibrillation (principal); Z79.01 Long term (current) use of anticoagulants; Z51.81 Encounter for therapeutic drug level monitoring | CPT/HCPCS: 85610; 99211 ==

== ENCOUNTER 2024-04-28 08:57 | Outpatient (AMB) | payer MEDICARE, SELFPAY ==
[2024-04-28 09:33] LABS: Prothrombin Time Whole Bld POC 35.2 sec (11.1-13.5); ~PT, ~INR - Anti Coag Clinic 2.9 (0.9-1.1)
--- NOTE | 2024-04-28 09:44 | MHC.OFFVISCO ---
Intake Intake Visit Reasons: Anticoagulation Allergies isosorbide Adverse Reaction (Unknown, Verified 04/21/24 08:14) dizziness Medication List - Last Reconciled 04/28/24 by Aster Gates RN atorvastatin 40 mg PO DAILY carvedilol 12.5 mg PO BID ferrous sulfate 324 mg PO BIDWM 30 days furosemide 20 mg PO DAILY glipizide 10 mg PO BID magnesium oxide 400 mg PO BID metformin 1,000 mg PO BID nitroglycerin mg sublingual omeprazole 20 mg PO DAILY@0630 30 days sacubitril-valsartan 24-26 mg (Entresto) 1 tab PO BID warfarin 5 mg See Protocol PO DAILY@1800 Nursing Note INR:2.9 in therapeutic range Medications and supplements reviewed had iron infusion this week plus taking supplemental iron, he brought in all of the meds he takes, he is not on omeprazole - was not in his bag - will ask his daughter . Denies any signs and symptoms of bleeding or bruising or clotting. Bleeding, bruising, clotting discussed Nutritional guidance given - eat fruits and vegetables that you enjoy Dose: due to hx of gi bleed this year decrease back to 5mgx 2 days/ 7.5mg x 5 days F/U INR: 2 weeks Patient verbalizes understanding of instructions given Anti-Coag Initial Assessment Social Hx Patient Tobacco Use Status: Never used Tobacco alcohol intake: former Alcohol intake frequency: does not drink Cardiovascular Hx: HTN, Angina, [place], Arrhythmias, Cardiomyopathy and Other Endocrine Hx: Diabetes Blood Disorder Hx: Hyperlipidemia Hx: Kidney Disease Cancer HX: No Psych. Illness/Depression: Yes Coding Level of Care Code Est Patient Level 1 Diagnoses Current use of anticoagulant therapy Z79.01 Assessment & Plan Assessment & Plan (1) Current use of anticoagulant therapy: Code(s): Z79.01 - group home (current) use of anticoagulants
== END 2024-04-28 09:50 | disposition home or self-care (01) ==
LOC: HO.ACS 08:57
PROVIDERS: PCP Internal Medicine; Visit Provider Internal Medicine
DX: Z79.01 Long term (current) use of anticoagulants (principal)

== ENCOUNTER → 2024-04-28 08:57 | Outpatient (BNVA) | payer MEDICARE, SELFPAY | PROVIDERS: PCP Internal Medicine; Visit Provider Internal Medicine | DX: I48.0 Paroxysmal atrial fibrillation (principal); Z79.01 Long term (current) use of anticoagulants; Z51.81 Encounter for therapeutic drug level monitoring | CPT/HCPCS: 85610; 99211 ==

== ENCOUNTER 2024-05-12 08:16 | Outpatient (AMB) | payer MEDICARE, SELFPAY ==
[2024-05-12 08:40] LABS: Prothrombin Time Whole Bld POC 22.9 sec (11.1-13.5); ~PT, ~INR - Anti Coag Clinic 1.9 (0.9-1.1)
--- NOTE | 2024-05-12 08:47 | MHC.OFFVISCO ---
Intake Intake Visit Reasons: Anticoagulation Allergies isosorbide Adverse Reaction (Unknown, Verified 05/12/24 08:32) dizziness Medication List - Last Reconciled 05/12/24 by Sherie Ramirez RN atorvastatin 40 mg PO DAILY carvedilol 12.5 mg PO BID ferrous sulfate 324 mg PO BIDWM 30 days furosemide 20 mg PO DAILY glipizide 10 mg PO BID magnesium oxide 400 mg PO BID metformin 1,000 mg PO BID nitroglycerin mg sublingual omeprazole 20 mg PO DAILY@0630 30 days sacubitril-valsartan 24-26 mg (Entresto) 1 tab PO BID warfarin 5 mg See Protocol PO DAILY@1800 Nursing Note INR 1.9?out of therapeutic range of 2-3 Medications and supplements reviewed Patient status: feels well, in good spirits Medications or supplements: no changes Diet: no changes Denies any signs and symptoms of bleeding or clotting or unusual bruising Bleeding, bruising, clotting discussed Nutritional guidance given: food list reviewed with pt and he is going to have a serving of grapes and then carrots later today Dose: 7.5mg X 6 days and 5mg X 1 day F/U INR Date : 1 week?? Patient verbalizing understanding of instructions given. Anti-Coag Initial Assessment Social Hx Patient Tobacco Use Status: Never used Tobacco alcohol intake: former Alcohol intake frequency: does not drink Cardiovascular Hx: HTN, Angina, [place], Arrhythmias, Cardiomyopathy and Other Endocrine Hx: Diabetes Blood Disorder Hx: Hyperlipidemia Hx: Kidney Disease Cancer HX: No Psych. 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
== END 2024-05-12 08:51 | disposition home or self-care (01) ==
LOC: HO.ACS 08:16
PROVIDERS: PCP Internal Medicine; Visit Provider Internal Medicine
DX: Z79.01 Long term (current) use of anticoagulants (principal)

== ENCOUNTER → 2024-05-12 08:16 | Outpatient (BNVA) | payer MEDICARE, SELFPAY | PROVIDERS: PCP Internal Medicine; Visit Provider Internal Medicine | DX: I48.0 Paroxysmal atrial fibrillation (principal); Z79.01 Long term (current) use of anticoagulants; Z51.81 Encounter for therapeutic drug level monitoring | CPT/HCPCS: 85610; 99211 ==

== ENCOUNTER 2024-05-19 08:04 | Outpatient (AMB) | payer MEDICARE, SELFPAY ==
[2024-05-19 08:59] LABS: Prothrombin Time Whole Bld POC 39.4 sec (11.1-13.5); ~PT, ~INR - Anti Coag Clinic 3.3 (0.9-1.1)
--- NOTE | 2024-05-19 09:17 | MHC.OFFVISCO ---
Intake Intake Visit Reasons: Anticoagulation Allergies isosorbide Adverse Reaction (Unknown, Verified 05/19/24 08:53) dizziness Medication List - Last Reconciled 05/19/24 by Aster Gates RN atorvastatin 40 mg PO DAILY carvedilol 12.5 mg PO BID ferrous sulfate 324 mg PO BIDWM 30 days furosemide 20 mg PO DAILY glipizide 10 mg PO BID magnesium oxide 400 mg PO BID metformin 1,000 mg PO BID nitroglycerin mg sublingual omeprazole 20 mg PO DAILY@0630 30 days sacubitril-valsartan 24-26 mg (Entresto) 1 tab PO BID warfarin 5 mg See Protocol PO DAILY@1800 Nursing Note pt daughter came with him today for iron infusion INR 3.3 out of therapeutic range- STOPPED ENSURE/GLYCENRA - TOO SWEET Medications and supplements reviewed Patient status: Well - just had iron infusion, enc to have vit c from foods source with his iron to help absorb the iron better Medications or supplements: no changes Diet: limited by his choice - doesn't like very many - does not eat protein daily - enc to have at least once daily for muscle and brain function and to help balance blood INR and blood sugars - he and his daughter agreed to that Denies any signs and symptoms of bleeding or clotting or unusual bruising Bleeding, bruising, clotting discussed Nutritional guidance given: 1 protein daily Dose: 5mg today ( x 2 days this week)then resume usual dose 5mg x 1 day/ 7.5mg x 6 days F/U INR Date: 2 weeks ?? Patient and daughter verbalizing understanding of instructions given. Anti-Coag Initial Assessment Social Hx Patient Tobacco Use Status: Never used Tobacco alcohol intake: former Alcohol intake frequency: does not drink Cardiovascular Hx: HTN, Angina, [place], Arrhythmias, Cardiomyopathy and Other Endocrine Hx: Diabetes Blood Disorder Hx: Hyperlipidemia Hx: Kidney Disease Cancer HX: No Psych. Illness/Depression: Yes Coding Level of Care Code Est Patient Level 1 Diagnoses Current use of anticoagulant therapy Z79.01 Assessment & Plan Assessment & Plan (1) Current use of anticoagulant therapy: Code(s): Z79.01 - [facility] (current) use of anticoagulants
== END 2024-05-19 09:23 | disposition home or self-care (01) ==
LOC: HO.ACS 08:04
PROVIDERS: PCP Internal Medicine; Visit Provider Internal Medicine
DX: Z79.01 Long term (current) use of anticoagulants (principal)

== ENCOUNTER → 2024-05-19 08:04 | Outpatient (BNVA) | payer MEDICARE, SELFPAY | PROVIDERS: PCP Internal Medicine; Visit Provider Internal Medicine | DX: I48.0 Paroxysmal atrial fibrillation (principal); Z79.01 Long term (current) use of anticoagulants; Z51.81 Encounter for therapeutic drug level monitoring | CPT/HCPCS: 85610; 99211 ==

== ENCOUNTER → 2024-05-19 08:49 | Outpatient (RCR) | payer MEDICARE, SELFPAY ==
[2024-04-26 12:56] VITALS: BP 116/60; PULSE 64; TEMP 36.5; O2SAT 99
[2024-04-26] MEDS: Iron Sucrose Complex 200 MG in 0.9 % Sodium Chloride 100 ML 440 MG IV (13:17)
[2024-04-26] MEDS: 0.9 % Sodium Chloride Flush 10 ML SYRINGE 5 ML IVFLUSH (13:39)
[2024-05-03 08:21] VITALS: BP 135/73; PULSE 70; RESP 14; TEMP 36.4; O2SAT 99
[2024-05-03] MEDS: Iron Sucrose Complex 200 MG in 0.9 % Sodium Chloride 100 ML 440 MG IV (08:39)
[2024-05-03] MEDS: 0.9 % Sodium Chloride Flush 10 ML SYRINGE 5 ML IVFLUSH (09:02)
[2024-05-10 08:52] VITALS: BP 144/84; PULSE 80; RESP 16; TEMP 36.1; O2SAT 98
[2024-05-10] MEDS: Iron Sucrose Complex 200 MG in 0.9 % Sodium Chloride 100 ML 440 MG IV (09:01)
[2024-05-19 08:06] VITALS: BP 138/79; PULSE 84; RESP 18; TEMP 36.4
[2024-05-19] MEDS: Iron Sucrose Complex 200 MG in 0.9 % Sodium Chloride 100 ML 440 MG IV (08:11)
== END | disposition home or self-care (01) ==
LOC: HO.INF 04-26 12:42
PROVIDERS: Visit Provider Internal Medicine
DX: D64.9 Anemia, unspecified (principal)
CPT/HCPCS: 96365; J1756

== ENCOUNTER 2024-06-02 08:36 | Outpatient (AMB) | payer MEDICARE, SELFPAY ==
[2024-06-02 08:45] LABS: Prothrombin Time Whole Bld POC 50.4 sec (11.1-13.5); ~PT, ~INR - Anti Coag Clinic 4.2 (0.9-1.1)
--- NOTE | 2024-06-02 08:53 | MHC.OFFVISCO ---
Intake Intake Visit Reasons: Anticoagulation Allergies isosorbide Adverse Reaction (Unknown, Verified 06/02/24 08:39) dizziness Medication List - Last Reconciled 06/02/24 by Sherie Ramirez RN atorvastatin 40 mg PO DAILY carvedilol 12.5 mg PO BID ferrous sulfate 324 mg PO BIDWM 30 days furosemide 20 mg PO DAILY glipizide 10 mg PO BID magnesium oxide 400 mg PO BID metformin 1,000 mg PO BID nitroglycerin mg sublingual omeprazole 20 mg PO DAILY@0630 30 days sacubitril-valsartan 24-26 mg (Entresto) 1 tab PO BID warfarin 5 mg See Protocol PO DAILY@1800 Nursing Note INR 4.2?out of therapeutic range of 2-3 Medications and supplements reviewed Patient status: feels well Medications or supplements: no change Diet: usual diet for pt but past 2 days has had watermelon and grapes that his daughter brought for him Denies any signs and symptoms of bleeding or clotting or unusual bruising Bleeding, bruising, clotting discussed Nutritional guidance given: to avoid watermelon and grapes today Food list reviewed. Pt does not like greens. Dose: hold today's dose of 7.5mg then resume usual dose of 7.5mg X 6 days and 5mg X 1 day F/U INR Date : 1 week?? Patient verbalizing understanding of instructions given. Anti-Coag Initial Assessment Social Hx Patient Tobacco Use Status: Never used Tobacco alcohol intake: former Alcohol intake frequency: does not drink Cardiovascular Hx: HTN, Angina, [place], Arrhythmias, Cardiomyopathy and Other Endocrine Hx: Diabetes Blood Disorder Hx: Hyperlipidemia Hx: Kidney Disease Cancer HX: No Psych. Illness/Depression: Yes Coding Level of Care Code Est Patient Level 1 Diagnoses Current use of anticoagulant therapy Z79.01 Assessment & Plan Assessment & Plan (1) Current use of anticoagulant therapy: Code(s): Z79.01 - prison (current) use of anticoagulants
== END 2024-06-02 08:56 | disposition home or self-care (01) ==
LOC: HO.ACS 08:36
PROVIDERS: PCP Internal Medicine; Visit Provider Internal Medicine
DX: Z79.01 Long term (current) use of anticoagulants (principal)

== ENCOUNTER → 2024-06-02 08:36 | Outpatient (BNVA) | payer MEDICARE, SELFPAY | PROVIDERS: PCP Internal Medicine; Visit Provider Internal Medicine | DX: I48.0 Paroxysmal atrial fibrillation (principal); Z79.01 Long term (current) use of anticoagulants; Z51.81 Encounter for therapeutic drug level monitoring | CPT/HCPCS: 85610; 99211 ==

== ENCOUNTER 2024-06-09 08:53 | Outpatient (AMB) | payer MEDICARE, SELFPAY ==
[2024-06-09 09:10] LABS: Prothrombin Time Whole Bld POC 26.4 sec (11.1-13.5); ~PT, ~INR - Anti Coag Clinic 2.2 (0.9-1.1)
--- NOTE | 2024-06-09 09:17 | MHC.OFFVISCO ---
Intake Intake Visit Reasons: Anticoagulation Allergies isosorbide Adverse Reaction (Unknown, Verified 06/09/24 09:06) dizziness Medication List - Last Reconciled 06/09/24 by Jenna Ugarte RN atorvastatin 40 mg PO DAILY carvedilol 12.5 mg PO BID ferrous sulfate 324 mg PO BIDWM 30 days furosemide 20 mg PO DAILY glipizide 10 mg PO BID magnesium oxide 400 mg PO BID metformin 1,000 mg PO BID nitroglycerin mg sublingual omeprazole 20 mg PO DAILY@0630 30 days sacubitril-valsartan 24-26 mg (Entresto) 1 tab PO BID warfarin 5 mg See Protocol PO DAILY@1800 Nursing Note NO CP,SOB,DIET/MED CHANGES,FALLS OR SX OF BLEEDING. CONTINUE PRESENT DOSE AND FOLLOW-UP IN 3 WEEKS(PT.REQUEST) GOOD UNDERSTANDING OF DOSING INSTR. Anti-Coag Initial Assessment Social Hx Patient Tobacco Use Status: Never used Tobacco alcohol intake: former Alcohol intake frequency: does not drink Cardiovascular Hx: HTN, Angina, [place], Arrhythmias, Cardiomyopathy and Other Endocrine Hx: Diabetes Blood Disorder Hx: Hyperlipidemia Hx: Kidney Disease Cancer HX: No Psych. 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
== END 2024-06-09 09:19 | disposition home or self-care (01) ==
LOC: HO.ACS 08:53
PROVIDERS: PCP Internal Medicine; Visit Provider Internal Medicine
DX: Z79.01 Long term (current) use of anticoagulants (principal)

== ENCOUNTER → 2024-06-09 08:53 | Outpatient (BNVA) | payer MEDICARE, SELFPAY | PROVIDERS: PCP Internal Medicine; Visit Provider Internal Medicine | DX: I48.0 Paroxysmal atrial fibrillation (principal); Z79.01 Long term (current) use of anticoagulants; Z51.81 Encounter for therapeutic drug level monitoring | CPT/HCPCS: 85610; 99211 ==

== ENCOUNTER 2024-06-30 08:45 | Outpatient (AMB) | payer MEDICARE, SELFPAY ==
[2024-06-30 08:57] LABS: Prothrombin Time Whole Bld POC 43.7 sec (11.1-13.5); ~PT, ~INR - Anti Coag Clinic 3.6 (0.9-1.1)
--- NOTE | 2024-06-30 09:12 | MHC.OFFVISCO ---
Intake Intake Visit Reasons: Anticoagulation Allergies isosorbide Adverse Reaction (Unknown, Verified 06/30/24 08:50) dizziness Medication List - Last Reconciled 06/30/24 by Aster Gates RN atorvastatin 40 mg PO DAILY carvedilol 12.5 mg PO BID ferrous sulfate 324 mg PO BIDWM 30 days furosemide 20 mg PO DAILY glipizide 10 mg PO BID lisinopril 10 mg PO DAILY magnesium oxide 400 mg PO BID metformin 1,000 mg PO BID nitroglycerin mg sublingual omeprazole 20 mg PO DAILY@0630 30 days sacubitril-valsartan 24-26 mg (Entresto) 1 tab PO BID warfarin 5 mg See Protocol PO DAILY@1800 Nursing Note INR: 3.6 OUT OF therapeutic range Medications and supplements reviewed Pt stated he had 1 bout of c/p yesterday took a nitro( his last One) and felt better- he was instructed to call md or pharmacy [facility] for refill Denies any signs and symptoms of bleeding or bruising or clotting. Bleeding, bruising, clotting discussed Nutritional guidance given - eat some avocaod today Dose: decrease dose 2.5mg x 2 days/ 5mg x 5 days- a previous INR of 4.3 on same dose held one day then 2.2 then today back up F/U INR: 2 weeks Patient verbalizes understanding of instructions given HR 60 and regular B/P 130/ 64 Anti-Coag Initial Assessment Social Hx Patient Tobacco Use Status: Never used Tobacco alcohol intake: former Alcohol intake frequency: does not drink Cardiovascular Hx: HTN, Angina, [place], Arrhythmias, Cardiomyopathy and Other Endocrine Hx: Diabetes Blood Disorder Hx: Hyperlipidemia Hx: Kidney Disease Cancer HX: No Psych. 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
== END 2024-06-30 09:16 | disposition home or self-care (01) ==
LOC: HO.ACS 08:45
PROVIDERS: PCP Internal Medicine; Visit Provider Internal Medicine
DX: Z79.01 Long term (current) use of anticoagulants (principal)

== ENCOUNTER → 2024-06-30 08:45 | Outpatient (BNVA) | payer MEDICARE, SELFPAY | PROVIDERS: PCP Internal Medicine; Visit Provider Internal Medicine | DX: I48.0 Paroxysmal atrial fibrillation (principal); Z79.01 Long term (current) use of anticoagulants; Z51.81 Encounter for therapeutic drug level monitoring | CPT/HCPCS: 85610; 99211 ==

== ENCOUNTER 2024-07-17 08:54 | Outpatient (AMB) | payer MEDICARE, SELFPAY ==
[2024-07-17 09:07] LABS: ~PT, ~INR - Anti Coag Clinic 4.2 (0.9-1.1)
--- NOTE | 2024-07-17 09:07 | MHC.OFFVISCO ---
Intake Intake Visit Reasons: Anticoagulation Allergies isosorbide Adverse Reaction (Unknown, Verified 07/17/24 09:02) dizziness Medication List - Last Reconciled 07/17/24 by Sonya Tobar RN atorvastatin 40 mg PO DAILY carvedilol 12.5 mg PO BID ferrous sulfate 324 mg PO BIDWM 30 days furosemide 20 mg PO DAILY glipizide 10 mg PO BID lisinopril 10 mg PO DAILY magnesium oxide 400 mg PO BID metformin 1,000 mg PO BID nitroglycerin mg sublingual omeprazole 20 mg PO DAILY@0630 30 days sacubitril-valsartan 24-26 mg (Entresto) 1 tab PO BID warfarin 5 mg See Protocol PO DAILY@1800 Nursing Note INR 4.2-? out of therapeutic range of 2-3 Medications and supplements reviewed Patient status: no c.o, pt vague on prev dosing, unsure if he took 5mg warfarin on wednesday, but states follows dosing management paper Medications or supplements: no changes Diet: same- has been eating grapes Denies any signs and symptoms of bleeding or clotting or unusual bruising Bleeding, bruising, clotting discussed Nutritional guidance given: eat greens but pt does not eat many greens Dose: already took warfarin today, hold dose tomm then take 5mg x 2. 7.5mg x 5 F/U INR Date : 1 week ?? Patient verbalizing understanding of instructions given. Anti-Coag Initial Assessment Social Hx Patient Tobacco Use Status: Never used Tobacco alcohol intake: former Alcohol intake frequency: does not drink Cardiovascular Hx: HTN, Angina, [place], Arrhythmias, Cardiomyopathy and Other Endocrine Hx: Diabetes Blood Disorder Hx: Hyperlipidemia Hx: Kidney Disease Cancer HX: No Psych. Illness/Depression: Yes Coding Level of Care Code Est Patient Level 1 Diagnoses Current use of anticoagulant therapy Z79.01 Assessment & Plan Assessment & Plan (1) Current use of anticoagulant therapy: Code(s): Z79.01 - snf (current) use of anticoagulants
== END 2024-07-17 09:21 | disposition home or self-care (01) ==
LOC: HO.ACS 08:54
PROVIDERS: PCP Internal Medicine; Visit Provider Internal Medicine
DX: Z79.01 Long term (current) use of anticoagulants (principal)

== ENCOUNTER → 2024-07-17 08:54 | Outpatient (BNVA) | payer MEDICARE, SELFPAY | PROVIDERS: PCP Internal Medicine; Visit Provider Internal Medicine | DX: I48.0 Paroxysmal atrial fibrillation (principal); Z79.01 Long term (current) use of anticoagulants; Z51.81 Encounter for therapeutic drug level monitoring | CPT/HCPCS: 85610; 99211 ==

== ENCOUNTER 2024-07-24 09:05 | Outpatient (AMB) | payer MEDICARE, SELFPAY ==
[2024-07-24 09:11] LABS: Prothrombin Time Whole Bld POC 23.3 sec (11.1-13.5); ~PT, ~INR - Anti Coag Clinic 1.9 (0.9-1.1)
--- NOTE | 2024-07-24 09:19 | MHC.OFFVISCO ---
Intake Intake Visit Reasons: Anticoagulation Allergies isosorbide Adverse Reaction (Unknown, Verified 07/24/24 09:07) dizziness Medication List - Last Reconciled 07/24/24 by Aster Gates RN atorvastatin 40 mg PO DAILY carvedilol 12.5 mg PO BID ferrous sulfate 324 mg PO BIDWM 30 days furosemide 20 mg PO DAILY glipizide 10 mg PO BID lisinopril 10 mg PO DAILY magnesium oxide 400 mg PO BID metformin 1,000 mg PO BID nitroglycerin mg sublingual omeprazole 20 mg PO DAILY@0630 30 days sacubitril-valsartan 24-26 mg (Entresto) 1 tab PO BID warfarin 5 mg See Protocol PO DAILY@1800 Nursing Note INR: 1.9 ALMOST in therapeutic range- DRINKING DARK CHOCOLATE HOT CHOCOLATE Medications and supplements reviewed No changes in health, diet, medications, or supplements, Denies any signs and symptoms of bleeding or bruising or clotting. Bleeding, bruising, clotting discussed Nutritional guidance given Dose: keep same dose - INR has been labile and over 3.0 previous visits dose for now: 5mg x 2 days/ 7.5mg x 5 days F/U INR: 1 1/2 weeks Patient verbalizes understanding of instructions given Anti-Coag Initial Assessment Social Hx Patient Tobacco Use Status: Never used Tobacco alcohol intake: former Alcohol intake frequency: does not drink Cardiovascular Hx: HTN, Angina, [place], Arrhythmias, Cardiomyopathy and Other Endocrine Hx: Diabetes Blood Disorder Hx: Hyperlipidemia Hx: Kidney Disease Cancer HX: No Psych. 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
== END 2024-07-24 09:22 | disposition home or self-care (01) ==
LOC: HO.ACS 09:05
PROVIDERS: PCP Internal Medicine; Visit Provider Internal Medicine
DX: Z79.01 Long term (current) use of anticoagulants (principal)

== ENCOUNTER → 2024-07-24 09:05 | Outpatient (BNVA) | payer MEDICARE, SELFPAY | PROVIDERS: PCP Internal Medicine; Visit Provider Internal Medicine | DX: I48.0 Paroxysmal atrial fibrillation (principal); Z79.01 Long term (current) use of anticoagulants; Z51.81 Encounter for therapeutic drug level monitoring | CPT/HCPCS: 85610; 99211 ==

== ENCOUNTER 2024-08-04 08:58 | Outpatient (AMB) | payer MEDICARE, SELFPAY ==
[2024-08-04 09:29] LABS: Prothrombin Time Whole Bld POC 21.9 sec (11.1-13.5); ~PT, ~INR - Anti Coag Clinic 1.8 (0.9-1.1)
--- NOTE | 2024-08-04 09:39 | MHC.OFFVISCO ---
Intake Intake Visit Reasons: Anticoagulation Allergies isosorbide Adverse Reaction (Unknown, Verified 08/04/24 09:23) dizziness Medication List - Last Reconciled 08/04/24 by Aster Gates RN atorvastatin 40 mg PO DAILY carvedilol 12.5 mg PO BID furosemide 20 mg PO DAILY glipizide 10 mg PO BID lisinopril 10 mg PO DAILY magnesium oxide 400 mg PO BID metformin 1,000 mg PO BID nitroglycerin 0.4 mg sublingual DAILY omeprazole 20 mg PO DAILY@0630 30 days sacubitril-valsartan 24-26 mg (Entresto) 1 tab PO BID warfarin 5 mg See Protocol PO DAILY@1800 Nursing Note INR: 1.8 in therapeutic range Medications and supplements reviewed Having hot chocolate daily and staying as active as he can- doesnt walk as much in cold weather changes in health, medications, or supplements, Denies any signs and symptoms of bleeding or bruising or clotting. Bleeding, bruising, clotting discussed Nutritional guidance given Dose: resume previous dose 7.5mg x 6 days/ 5mg x 1 days F/U INR: 3 weeks per pt request Patient verbalizes understanding of instructions given to call with any unusual bleeding or bruising to make sooner appt Anti-Coag Initial Assessment Social Hx Patient Tobacco Use Status: Never used Tobacco alcohol intake: former Alcohol intake frequency: does not drink Cardiovascular Hx: HTN, Angina, [place], Arrhythmias, Cardiomyopathy and Other Endocrine Hx: Diabetes Blood Disorder Hx: Hyperlipidemia Hx: Kidney Disease Cancer HX: No Psych. 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
== END 2024-08-04 09:42 | disposition home or self-care (01) ==
LOC: HO.ACS 08:58
PROVIDERS: PCP Internal Medicine; Visit Provider Internal Medicine
DX: Z79.01 Long term (current) use of anticoagulants (principal)

== ENCOUNTER → 2024-08-04 08:58 | Outpatient (BNVA) | payer MEDICARE, SELFPAY | PROVIDERS: PCP Internal Medicine; Visit Provider Internal Medicine | DX: I48.0 Paroxysmal atrial fibrillation (principal); Z79.01 Long term (current) use of anticoagulants; Z51.81 Encounter for therapeutic drug level monitoring | CPT/HCPCS: 85610; 99211 ==

== ENCOUNTER 2024-08-25 09:29 | Outpatient (AMB) | payer MEDICARE, SELFPAY ==
[2024-08-25 09:36] LABS: ~PT, ~INR - Anti Coag Clinic 2.2 (0.9-1.1)
--- NOTE | 2024-08-25 09:37 | MHC.OFFVISCO ---
Intake Intake Visit Reasons: Anticoagulation Allergies isosorbide Adverse Reaction (Unknown, Verified 08/25/24 09:30) dizziness Medication List - Last Reconciled 08/25/24 by Aster Gates RN atorvastatin 40 mg PO DAILY carvedilol 12.5 mg PO BID furosemide 20 mg PO DAILY glipizide 10 mg PO BID lisinopril 10 mg PO DAILY magnesium oxide 400 mg PO BID metformin 1,000 mg PO BID nitroglycerin 0.4 mg sublingual DAILY omeprazole 20 mg PO DAILY@0630 30 days sacubitril-valsartan 24-26 mg (Entresto) 1 tab PO BID warfarin 5 mg See Protocol PO DAILY@1800 Nursing Note INR: 2.2 in therapeutic range Medications and supplements reviewed No changes in health, diet, medications, or supplements, Denies any signs and symptoms of bleeding or bruising or clotting. Bleeding, bruising, clotting discussed Nutritional guidance given Dose: SAME 5MG WED/ 7.5MG X 6 DAYS F/U INR: 3 WEEKS PER PT REQUEST DUE TO OLD WEATHER Patient verbalizes understanding of instructions given Anti-Coag Initial Assessment Social Hx Patient Tobacco Use Status: Never used Tobacco alcohol intake: former Alcohol intake frequency: does not drink Cardiovascular Hx: HTN, Angina, [place], Arrhythmias, Cardiomyopathy and Other Endocrine Hx: Diabetes Blood Disorder Hx: Hyperlipidemia Hx: Kidney Disease Cancer HX: No Psych. Illness/Depression: Yes Questionnaires HAS-BLED Does the patient had uncontrolled Hypertension?: No Does the patient have renal disease?: Yes Does the patient have liver disease?: No Does the patient have a history of stroke?: No Has the patient had major bleeding or predisposition to bleeding?: No Does the patient have labile INRs?: Yes Is the patient over 65 years of age?: Yes Is the patient on medications that gives them a predisposition to bleeding?: Yes Does the patient use alcohol?: No HAS-BLED Score: 4 CHADSVASC Age: 75 or over Gender: Male Does the patient have a history of CHF?: No Does the patient have a history of Hypertension?: Yes Does the patient have a history of Stroke/TIA/Thromboembolism?: Yes Does the patient have a history of Vascular Disease (prior [place], PAD or aortic plaque)?: Yes Does the patient have a history of Diabetes?: Yes CHADS VACS Score: 7 Marci Prediction Score Rsk VTE Active Cancer: No Previous VTE, excluding superficial vein thrombosis: Yes Reduced mobility: No Already known Thrombophilic Condition: No With-in last month Trauma and/or Surgery: No Elderly 70 year or older: Yes Heart and/or Respiratory Failure: No Acute Myocardial infarction and/or Ischemic Stroke: Yes Acute Infection and/or Rheumatologic Disorder: No Obesity (BMI 30 or greater): No Ongoing Hormonal Treatment: No Score: 5 Marci Score less than 4; Low Risk of VTE Marci Score 4 or greater; High Risk of VTE Coding Level of Care Code Est Patient Level 1 Diagnoses Current use of anticoagulant therapy Z79.01 Assessment & Plan Assessment & Plan (1) Current use of anticoagulant therapy: Code(s): Z79.01 - alf (current) use of anticoagulants
--- OUTSIDE RECORDS SUMMARY | 2024-08-30 07:00 | XMS_ITS ---
Author Organization [facility] Address [address] [place] [phone] Care Team Providers Care Purchaser Automotive Parts Name Role Phone Ria Bryant MD Primary Care Provider Rainer Schaffer Jr Unavailable Encounters Encounter Location Date Provider Diagnosis [facility] [address] [place] [phone] 03/22/2024 Rainer Roa Jr PLAN OF TREATMENT No Information
--- OUTSIDE RECORDS SUMMARY | 2024-08-30 07:00 | XMS_ITS ---
Author Organization [facility] Address [address] [place] [phone] Care Team Providers Care Manager Packaging Name Role Phone Ria Bryant MD Primary Care Provider Rainer Schaffer Jr Unavailable REASON FOR VISIT pathology Encounters Encounter Location Date Provider Diagnosis [facility] [address] [place] [phone] 03/30/2024 Rainer Roa Jr PLAN OF TREATMENT No Information
--- OUTSIDE RECORDS SUMMARY | 2024-08-30 07:00 | XMS_ITS ---
Author Organization [facility] Address [address] [place] [address] Care Team Providers Care Pizza Driver Name Role Phone Ria Bryant MD Primary Care Provider Rainer Schaffer Jr Unavailable [phone] REASON FOR VISIT GI BLEED Encounters Encounter Location Date Provider Diagnosis [facility] Inpatient [address] [place], [place] [phone] 03/22/2024 Rainer Roa Jr PLAN OF TREATMENT No Information
--- OUTSIDE RECORDS SUMMARY | 2024-08-30 07:00 | XMS_ITS | Patient Health Record ---
Author Organization [facility] Address [address] [place] [phone] Care Team Providers Care Ophthalmic Technician Apprentice Name Role Phone Annette GUNDERSON, Ria Primary Care Provider Rainer Schaffer Jr Unavailable [phone] RESULTS Component Value Reference Range Notes Prothrombin Time INR Reviewed date:03/22/2024 08:14:46 AM Interpretation: Performing Lab:[facility], [address] [place] [phone] Notes/Report: Prothrombin Time 17.3 11.1-13.3 SEC INTERNATIONAL NORM RATIO 1.4 0.9-1.1 INTERNATIONAL NORMALIZED RATIO (INR) REFERENCE RANGES Reference Range For patients not on anticoagulant therapy: 0.9 - 1.1 INR ranges for oral anticoagulant therapy: For prevention and treatment of venous thrombosis and pulmonary embolism: 2.0 - 3.0 For acute myocardial infarction with aspirin therapy: 2.0 - 3.0 For acute myocardial infarction without aspirin therapy: 3.0 - 4.0 For patients with mechanical prosthetic heart valves: 2.5 - 3.5 Pathology Reviewed date:03/30/2024 11:36:05 AM Interpretation: Performing Lab:[facility], [address] [place] [phone] Notes/Report: REASON FOR REFERRAL No Information SOCIAL HISTORY Sex Assigned At : Social History Observation Description Sex Assigned At Unknown PROBLEMS Problem Type ICD Code Onset Dates Problem Status W/U Status Risk SNOMED Code Notes Problem Iron deficiency anemia (D50.9) Active confirmed Iron deficiency anemia (96241182) Problem Gastritis (K29.70) Active confirmed Gastritis (4824590) Encounters Encounter Location Date Provider Diagnosis [facility] In[place] [address] [place] [id number] 03/22/2024 Rainer Roa Jr [facility] [address] [place] [address] 03/22/2024 Rainer Roa Jr [facility] [address] [place] [address] 03/30/2024 Rainer Roa Jr PLAN OF TREATMENT No Information Insurance Providers Payer Name Payer Address Payer Phone Subscriber Number Group Number Insured Name Patient Relationship to Insured Coverage Start Date Coverage End Date [place]ARE [place] [address] [place] [address] [id number] SOREN BECKHAM Self - patient is the insured MEDEX ATTN CLAIMS [address] [place] [address] [phone] [id number] SOREN BECKHAM Self - patient is the insured
== END 2024-08-25 09:44 | disposition home or self-care (01) ==
LOC: HO.ACS 09:29
PROVIDERS: PCP Internal Medicine; Visit Provider Internal Medicine
DX: Z79.01 Long term (current) use of anticoagulants (principal)

== ENCOUNTER → 2024-08-25 09:29 | Outpatient (BNVA) | payer MEDICARE, SELFPAY | PROVIDERS: PCP Internal Medicine; Visit Provider Internal Medicine | DX: I48.0 Paroxysmal atrial fibrillation (principal); Z79.01 Long term (current) use of anticoagulants; Z51.81 Encounter for therapeutic drug level monitoring | CPT/HCPCS: 85610; 99211 ==

== ENCOUNTER 2024-09-15 08:51 | Outpatient (AMB) | payer MEDICARE, SELFPAY ==
[2024-09-15 08:58] LABS: Prothrombin Time Whole Bld POC 38.3 sec (11.1-13.5); ~PT, ~INR - Anti Coag Clinic 3.2 (0.9-1.1)
--- NOTE | 2024-09-15 09:04 | MHC.OFFVISCO ---
Intake Intake Visit Reasons: Anticoagulation Allergies isosorbide Adverse Reaction (Unknown, Verified 09/15/24 08:52) dizziness Medication List - Last Reconciled 09/15/24 by Sherie Khna RN atorvastatin 40 mg PO DAILY carvedilol 12.5 mg PO BID furosemide 20 mg PO DAILY glipizide 10 mg PO BID lisinopril 10 mg PO DAILY magnesium oxide 400 mg PO BID metformin 1,000 mg PO BID nitroglycerin 0.4 mg sublingual DAILY omeprazole 20 mg PO DAILY@0630 30 days sacubitril-valsartan 24-26 mg (Entresto) 1 tab PO BID warfarin 5 mg See Protocol PO DAILY@1800 Nursing Note AMb to ACS accomp by daughter feeling ok cold Medications and supplements reviewed No changes in health, diet, medications, or supplements, Denies any signs and symptoms of bleeding, bruising, or clotting. Bleeding, bruising, clotting discussed INR: 3.2 above therapeutic range Dose: continue same dosing (recent weekly increase) 7.5mg x 6 days and 5mg x 1 days pt is not a veggie eater but drinks hot chocolate daily, will increase avacados (likes in a sandwich), canned peaches, and pistachios also encouraged to increase fluids as daughter stated he had a little dizzy spell last week and is not drinking usual fluids F/U INR: 2 weeks Patient verbalizes understanding of instructions given Anti-Coag Initial Assessment Social Hx Patient Tobacco Use Status: Never used Tobacco alcohol intake: former Alcohol intake frequency: does not drink Cardiovascular Hx: HTN, Angina, [place], Arrhythmias, Cardiomyopathy and Other Endocrine Hx: Diabetes Blood Disorder Hx: Hyperlipidemia Hx: Kidney Disease Cancer HX: No Psych. 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
--- OUTSIDE RECORDS SUMMARY | 2024-09-15 09:06 | XMS_ITS ---
Author Organization [facility] Address [address] [place] [address] Care Team Providers Care Production Broaching Machine Operator Name Role Phone Ria Bryant MD Primary Care Provider Rainer Schaffer Jr Unavailable [phone] REASON FOR VISIT GI BLEED Encounters Encounter Location Date Provider Diagnosis [facility] [place] [address] [place], [place] [phone] 03/22/2024 Rainer Roa Jr PLAN OF TREATMENT No Information
--- OUTSIDE RECORDS SUMMARY | 2024-09-15 09:06 | XMS_ITS ---
Author Organization [facility] Address [address] [place] [phone] Care Team Providers Care Hand Frame Surgical Elastic Knitter Name Role Phone Ria Bryant MD Primary Care Provider Rainer Schaffer Jr Unavailable REASON FOR VISIT pathology Encounters Encounter Location Date Provider Diagnosis [facility] [address] [place] [phone] 03/30/2024 Rainer Roa Jr PLAN OF TREATMENT No Information
--- OUTSIDE RECORDS SUMMARY | 2024-09-15 09:07 | XMS_ITS | Patient Health Record ---
Author Organization [facility] Address [address] [place] [address] Care Team Providers Care Assignment Manager Name Role Phone Annette GUNDERSON, Ria Primary Care Provider Rainer Schaffer Jr Unavailable [phone] RESULTS Component Value Reference Range Notes Prothrombin Time INR Reviewed date:03/22/2024 08:14:46 AM Interpretation: Performing Lab:[facility], [address] [place] [phone] Notes/Report: Prothrombin Time 17.3 11.1-13.3 SEC INTERNATIONAL [...] Pathology Reviewed date:03/30/2024 11:36:05 AM Interpretation: Performing Lab:[facility], [address] [place] [phone] Notes/Report: REASON FOR REFERRAL No Information SOCIAL HISTORY Sex Assigned At : Social History Observation Description Sex Assigned At Unknown PROBLEMS Problem Type ICD Code Onset Dates Problem Status W/U Status Risk SNOMED Code Notes Problem Iron deficiency anemia (D50.9) Active confirmed Iron deficiency anemia (20433798) Problem Gastritis (K29.70) Active confirmed Gastritis (7336743) Encounters Encounter Location Date Provider Diagnosis [facility] [place] [address] [place] [id number] 03/22/2024 Rainer Roa Jr [facility] [address] [place] [address] 03/22/2024 Rainer Roa Jr [facility] [address] [place] [address] 03/30/2024 Rainer Roa Jr PLAN OF TREATMENT No Information Insurance Providers Payer Name Payer Address Payer Phone Subscriber Number Group Number Insured Name Patient Relationship to Insured Coverage Start Date Coverage End Date [place]ARE [place] [address] [place] [address] [id number] SOREN BECKHAM Self - patient is the insured MEDEX ATTN CLAIMS [address] [place] [address] [id number] SOREN BECKHMA Self - patient is the insured
--- OUTSIDE RECORDS SUMMARY | 2024-09-15 09:07 | XMS_ITS ---
Author Organization [facility] Address [address] [place] [address] Care Team Providers Care Senior It Auditor Name Role Phone Ria Bryant MD Primary Care Provider Rainer Schaffer Jr Unavailable [phone] Encounters Encounter Location Date Provider Diagnosis [facility] [address] [place] [phone] 03/22/2024 Rainer Roa Jr PLAN OF TREATMENT No Information
== END 2024-09-15 09:16 | disposition home or self-care (01) ==
LOC: HO.ACS 08:51
PROVIDERS: PCP Internal Medicine; Visit Provider Internal Medicine
DX: Z79.01 Long term (current) use of anticoagulants (principal)

== ENCOUNTER → 2024-09-15 08:51 | Outpatient (BNVA) | payer MEDICARE, SELFPAY | PROVIDERS: PCP Internal Medicine; Visit Provider Internal Medicine | DX: I48.0 Paroxysmal atrial fibrillation (principal); Z79.01 Long term (current) use of anticoagulants; Z51.81 Encounter for therapeutic drug level monitoring | CPT/HCPCS: 85610; 99211 ==

== ENCOUNTER 2024-09-29 11:08 | Outpatient (AMB) | payer MEDICARE, SELFPAY ==
--- OUTSIDE RECORDS SUMMARY | 2024-09-29 11:15 | XMS_ITS | Patient Health Record ---
Author Organization [facility] Address [address] [place] [address] Care Team Providers Care Health And Safety Director Name Role Phone Annette GUNDERSON, Ria Primary Care Provider Rainer Schaffer Jr Unavailable RESULTS Component Value Reference Range Notes Prothrombin Time INR Reviewed date:03/22/2024 08:14:46 AM Interpretation: Performing Lab:[facility], [address] [place] [phone] Notes/Report: Prothrombin Time 17.3 11.1-13.3 SEC INTERNATIONAL [...] Pathology Reviewed date:03/30/2024 11:36:05 AM Interpretation: Performing Lab:[facility], [address] [place] [phone] Notes/Report: REASON FOR REFERRAL No Information SOCIAL HISTORY Sex Assigned At : Social History Observation Description Sex Assigned At Unknown PROBLEMS Problem Type ICD Code Onset Dates Problem Status W/U Status Risk SNOMED Code Notes Problem Iron deficiency anemia (D50.9) Active confirmed Iron deficiency anemia (84576014) Problem Gastritis (K29.70) Active confirmed Gastritis (2273285) Encounters Encounter Location Date Provider Diagnosis [facility] In[place] [address] [place] [id number] 03/22/2024 Rainer Roa Jr [facility] [address] [place] [address] 03/22/2024 Rainer Roa Jr [facility] [address] [place] [address] 03/30/2024 Rainer Roa Jr PLAN OF TREATMENT No Information Insurance Providers Payer Name Payer Address Payer Phone Subscriber Number Group Number Insured Name Patient Relationship to Insured Coverage Start Date Coverage End Date [place] [address] [place] [address] [id number] SOREN BECKHAM Self - patient is the insured MEDEX ATTN CLAIMS [address] [place] [address] [phone] [id number] SOREN BECKHAM Self - patient is the insured
--- OUTSIDE RECORDS SUMMARY | 2024-09-29 11:15 | XMS_ITS ---
Author Organization [facility] Address [address] [place] [address] Care Team Providers Care Quality Control Lab Technician Name Role Phone Ria Bryant MD Primary Care Provider Rainer Schaffer Jr Unavailable REASON FOR VISIT pathology Encounters Encounter Location Date Provider Diagnosis [facility] [address] [place] [phone] 03/30/2024 Rainer Roa Jr PLAN OF TREATMENT No Information
--- OUTSIDE RECORDS SUMMARY | 2024-09-29 11:15 | XMS_ITS ---
Author Organization [facility] Address [address] [place] [address] Care Team Providers Care Medical Care Manager Name Role Phone Ria Bryant MD Primary Care Provider Rainer Schaffer Jr Unavailable REASON FOR VISIT GI BLEED Encounters Encounter Location Date Provider Diagnosis [facility] Inpatient [address] [place], [place] [phone] 03/22/2024 Rainer Roa Jr PLAN OF TREATMENT No Information
--- OUTSIDE RECORDS SUMMARY | 2024-09-29 11:15 | XMS_ITS ---
Author Organization [facility] Address [address] [place] [phone] Care Team Providers Care Allied Health Professional Name Role Phone Ria rByant MD Primary Care Provider Rainer Schaffer Jr Unavailable [phone] Encounters Encounter Location Date Provider Diagnosis [facility] [address] [place] [id number] 03/22/2024 Rainer Roa Jr PLAN OF TREATMENT No Information
[2024-09-29 11:17] LABS: Prothrombin Time Whole Bld POC 35.1 sec (11.1-13.5); ~PT, ~INR - Anti Coag Clinic 2.9 (0.9-1.1)
--- NOTE | 2024-09-29 11:25 | MHC.OFFVISCO ---
Intake Intake Visit Reasons: Anticoagulation Allergies isosorbide Adverse Reaction (Unknown, Verified 09/15/24 08:52) dizziness Nursing Note INR: 2.9 in therapeutic range- ATE A LARGE AVOCADO YESTERDAY Medications and supplements reviewed No changes in health, diet, medications, or supplements, Denies any signs and symptoms of bleeding or bruising or clotting. Bleeding, bruising, clotting discussed Nutritional guidance given - AVOCADO AND CHICKEN WEEKLY Dose: KEEP SAME DOSE FOR NOW 5MG X 1 DAY/ 7.5MG X 6 DAYS F/U INR: 3 WEEKS Patient verbalizes understanding of instructions given Anti-Coag Initial Assessment Social Hx Patient Tobacco Use Status: Never used Tobacco alcohol intake: former Alcohol intake frequency: does not drink Cardiovascular Hx: HTN, Angina, [place], Arrhythmias, Cardiomyopathy and Other Endocrine Hx: Diabetes Blood Disorder Hx: Hyperlipidemia Hx: Kidney Disease Cancer HX: No Psych. 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
== END 2024-09-29 11:27 | disposition home or self-care (01) ==
LOC: HO.ACS 11:08
PROVIDERS: PCP Internal Medicine; Visit Provider Internal Medicine
DX: Z79.01 Long term (current) use of anticoagulants (principal)

== ENCOUNTER → 2024-09-29 11:08 | Outpatient (BNVA) | payer MEDICARE, SELFPAY | PROVIDERS: PCP Internal Medicine; Visit Provider Internal Medicine | DX: I48.0 Paroxysmal atrial fibrillation (principal); Z79.01 Long term (current) use of anticoagulants; Z51.81 Encounter for therapeutic drug level monitoring | CPT/HCPCS: 85610; 99211 ==

== ENCOUNTER 2024-10-20 08:20 | Outpatient (AMB) | payer MEDICARE, SELFPAY ==
--- OUTSIDE RECORDS SUMMARY | 2024-10-20 08:23 | XMS_ITS | Encounter Summary ---
Author Organization [facility] [address] Care Team Providers Care Driver/Guide Name Role Phone Ria Bryant MD Primary Care Provider [phone] Reason for Visit * Reason Onset Date Comments medication 10/17/2024 Encounter Details Date Type Department Care Team ([facility] st Contact Info) Description 10/17/2024 Telephone [facility] - [facility] [address] [facility] [address] [place] [id number] Garret Hendrickson MD [address] [facility] [address] [place] [address] medication Social History Tobacco Use Types Packs/Day Years Used Date Smoking Tobacco: Never Smokeless Tobacco: Never Alcohol Use Standard Drinks/Week Comments Not Currently 0 (1 standard drink = 0.6 oz pur e alcohol) Sex and Gender Information Value Date Recorded Sex Assigned at Not on file Gender Identity Not on file Sexual Orientation Not on file Job Start Date Occupation Industry Not on file Not on file Not on file documented as of this encounter Ordered Prescriptions Prescription Sig Dispensed Refills Start Date End Da te magnesium oxide (MAG-OX) 400 mg magnesium tablet Take 1 tablet (400 mg total) by mouth 2 (two) times a day. 180 tablet 1 10/18/2024 documented in this encounter Progress Notes * Adrienne Villanueva MA - 10/18/2024 8:59 AM EST Rx magnesium renewed. DANIEL * Tania Van - 10/17/2024 4:30 PM EST The patients daughter Kendra called requesting a refill for magnesium 400 mg, 1 tablet twice a day, 90 day supply, pharmacy confirmed. documented in this encounter Plan of Treatment Upcoming Encounters Date Type Department Care Team (Late st Contact Info) Description 12/14/2024 9:00 AM EDT Ancillary Procedure [facility] - [facility] [address] [facility] [address] [place] [phone] documented as of this encounter Visit Diagnoses Not on filedocumented in this encounter Discontinued Medications Medication Sig Discontinue Reason Start Date End Da te magnesium oxide (MAG-OX) 400 mg (241.3 elemental magnesium) tablet Take 1 tablet (400 mg total) by mouth 2 (two) times a day. Entered in Error 03/15/2024 10/18/2024 documented as of this encounter Care Teams Driver/Guide Relationship Specialty Start Date End Date Ria Bryant MD [id number] [place] [address] PCP - General Internal Medicine 08/23/24 documented as of this encounter
--- OUTSIDE RECORDS SUMMARY | 2024-10-20 08:24 | XMS_ITS | Clinical Summary ---
Author Organization [address] [place] [address] Address [address] [place] [address] Phone Care Team Providers Care Cable Puller Name Role Phone Ria Bryant MD Primary Care Provider [phone] Allergies No known active allergies Medications Medication Sig Dispensed Refills Start Date End Date Status lancets lancets Apply 1 Each topically daily. test bid and prn 05/12/2018 Active blood glucose control high,low (FreeStyle Control) solution as needed. 08/27/2006 Active glucose blood test strip Apply 1 Strip topically daily. test bid and prn 05/12/2018 Active atorvastatin (LIPITOR) 40 mg tablet Take 1 tablet (40 mg total) by mouth 1 (one) time each day. 01/02/2019 Active carvediloL (COREG) 12.5 mg tablet Take 1 Tablet by mouth 2 times daily (with meals). 03/13/2024 Active furosemide (LASIX) 20 mg tablet Take 1 Tablet by mouth daily for 180 days. 03/01/2024 Active glipiZIDE (GLUCOTROL) 10 mg tablet Take 1 tablet (10 mg total) by mouth 2 (two) times a day before meals. 02/06/2019 Active metFORMIN (GLUCOPHAGE) 500 mg tablet Take 2 tablets (1,000 mg total) by mouth 2 (two) times a day. 06/27/2023 Active nitroglycerin (NITROSTAT) 0.[address] 1 Tablet under the tongue every 5 minutes as needed for Chest pain (Up to three doses. If chest pain is not relieved after 2 tablets, take a 3rd and call 9-1-1.). 02/07/2024 Active omeprazole OTC (PriLOSEC OTC) 20 mg EC tablet Take 1 tablet (20 mg total) by mouth 1 (one) time each day. Do not crush, chew, or split. Active warfarin (COUMADIN) 5 mg tablet Take 1 tablet (5 mg total) by mouth 1 (one) time each day with dinner. 90 tablet 2 08/09/2024 Active lisinopriL (PRINIVIL,ZESTRI L) 10 mg tablet Take 1 tablet (10 mg total) by mouth 1 (one) time each day. Active magnesium oxide (MAG-OX) 400 mg magnesium tablet Take 1 tablet (400 mg total) by mouth 2 (two) times a day. 180 tablet 1 10/18/2024 Active magnesium oxide (MAG-OX) 400 mg (241.3 elemental magnesium) tablet Take 1 tablet (400 mg total) by mouth 2 (two) times a day. 03/15/2024 10/18/2024 Discontinued (Entered in Error) Active Problems Problem Noted Date Diagnosed Date Atrial fibrillation 03/18/2023 Overview (06/27/2024): Last Assessment & Plan: Currently anticoagulated without any unusual bleeding his device would suggest that he is rarely in atrial fibrillation and if so it appears to be a very short duration. Continue stroke prophylaxis did provide the name of Cole if his insurance company would be less of a co-pay daughter will look into this he does not prefer to try Coumadin. Assessment & Plan (08/23/2024 12:06 PM EST): Will monitor overall burden via remote device. He continues to be anticoagulated with Coumadin for stroke reduction. Educated on risks and benefits of continuing with anticoagulation including increased risk for hemorrhage and decreased risk for stroke. Encouraged to seek emergent medical attention should the patient sustain a fall involving a head strike. The patient understands these risks and agrees to continue. Chest pain 03/18/2023 Assessment & Plan (08/23/2024 12:06 PM EST): He does endorse an episode of chest tightness over the weekend at rest which lasted minutes in duration and self terminated. Patient denies any chest discomfort or anginal symptoms at this time. He has not had to take any nitroglycerin as needed. Instructed to call 911 or go to the emergency room should the patient begin to experience chest pain or pressure lasting greater than 10 minutes does not resolve with rest. We discussed updating stress testing or titrating medications however the patient is not interested at this time and ensures me he is feeling well Orders: ECG 12 lead HTN (hypertension) 03/18/2023 Ischemic cardiomyopathy 03/18/2023 Overview (06/27/2024): Last Assessment & Plan: Ischemic cardiomyopathy reduced ejection fraction with a worsening of his ejection fraction in January 2023 from his previous echocardiogram a couple of years ago. Does not appear to have a revascularization option based on most recent heart catheterization and he is managed medically. Pressure on arrival was 160/80 after sitting and resting checked by me 140/80 have asked him if he would be willing to follow his blood pressure at home. He does not prefer to do this. He will not consider increasing his drug therapy to optimize his blood pressure. Does agree to follow a low-sodium diet and does not drink fluids excessively. I have urged him to weigh himself every day. He has no edema or symptoms of volume overload. Assessment & Plan (08/23/2024 12:06 PM EST): Unable to tolerate Entresto and not taking Lasix daily. The patient is not interested in titrating or introducing any other medications. Overall he is feeling well. Recent echocardiogram with improvement in his LVEF to 40 to 45% as outlined above. Encouraged to continue to follow a low-sodium diet and perform daily weights. Patient will reach out to our office with a weight gain of 2 pounds in 1 day or 5 pounds in 5 days accompanied by worsening peripheral edema, shortness of breath or abdominal distention. Adrenal adenoma, left 10/02/2018 DVT (deep venous thrombosis) 05/20/2018 Overview (06/27/2024): 04/18/2018 per PCP right upper extremity DVT. He was on Lovenox now on Coumadin CKD (chronic kidney disease) stage 1, GFR 90 ml/min or greater 02/15/2015 Nuclear sclerosis 09/14/2011 Overview (06/27/2024): Noted on exam By Dr. Mcqueen on 06/26/2009. Old myocardial infarction 09/14/2011 Overview (06/27/2024): Echo of 08/19/2011 shows akinesis of inferior basal wall and septum. CABG 2008. 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 Brown Revised 2014 Assessment & Plan (08/23/2024 12:06 PM EST): He continues to follow closely with our device clinic. Last remote device download from May 2024 revealed predominantly atrial pacing and normal device function. Hyperlipidemia 08/22/2006 Coronary artery disease 06/09/2006 Overview (06/27/2024): [place] 1998 stent LAD 2004 EF 45% Last Assessment & Plan: Known coronary disease with residual disease with his most recent catheterization being 2019. He ruled out for an acute cardiac event presenting into the emergency room in January with a syncopal event. Device was interrogated it did not demonstrate a tachyarrhythmia nor did he receive shock therapy. Patient has quite a high functional level of exercise at the age of 82 with no anginal symptoms. He is absolutely adamant that he will not consider adjusting his medication doses or consider any new drug therapies for heart failure. Dates he is going to continue doing this level of exercise as well as his punching bag because he believes that he is an angry individual and this helps relax him. I have advised him when to seek emergency attention. He does have nitroglycerin but he does not use it. Explained to him that his heart pumping function has reduced from previous Splane the rationale for new medications but he flatly declines. Encounters Date Type Department Care Team Description 10/17/2024 Telephone [facility] - [address] [place] [id number] Garret Hendrickson MD medication 08/30/2024 4:25 PM EST Ancillary Procedure [facility] - [address] [place] [address] 08/23/2024 7:40 AM EST Office Visit [facility] - [address] [place] [id number] Adilene Lindsey NP Chest pain, unspecified type (Primary Dx); Ventricular tachyarrhythmia (CMS/HCC); Sinoatrial node dysfunction (CMS/HCC); Atrial fibrillation, unspecified type (CMS/HCC); Ischemic cardiomyopathy 08/08/2024 2:30 PM EST Ancillary Procedure [facility] - [address] [place] [address] Ischemic cardiomyopathy from Last 3 Months Immunizations Name Administration Dates Next Due Influenza trivalent, 0.5mL ( Fluzone High-dose) 65yo and older 05/31/2018,06/30/2017 Influenza trivalent, with pr eservative (Fluzone; Afluria) 6mo and older 07/14/2016,07/05/2015,07/18/2014,07/10,09/06/2012,07/21/2011,09/02/2010 ,06/08/2009,06/19/2005 Pneumococcal conjugate 13 va lent (Prevnar 13, PCV13) 2mo and older 09/09/2015 Pneumococcal polysaccharide 23 valent (Pneumovax 23) 2yo and older 07/18/2014,07/26/2003 Td Tetanus diptheria (Tdvax) 7yo and older 09/02/2010 Surgical History Surgery Date Site/Laterality Comments ANGIOPLASTY PROCEDURE: HISTORICAL ANGIOPLASTY; COMMENT: with stent CORONARY ARTERY BYPASS GRAFT PROCEDURE: HISTORICAL CABG; COMMENT: 2008 OTHER SURGICAL HISTORY PROCEDURE: HISTORY OTHER; COMMENT: pacer defibrillator Medical History Medical History Date Comments Pure hypercholesterolemia 08/22/2006 DX:Pur e hypercholesterolemia Coronary atherosclerosis of unspecified type of vessel, [place] or graft 06/09/2006 DX:Coronary atherosclerosis of unspecified type of vessel, [place] or graft; COMMENT: [place] 1998 Alcohol abuse, unspecified 08/19/2006 DX:Al cohol abuse, unspecified Type II or unspecified type diabetes mellitus without mention of complication, uncontrolled 08/22/2006 DX:Type II or unspecified t ype diabetes mellitus without mention of complication, uncontrolled Heart disease, unspecified DX:He art disease, unspecified Hyperlipidemia 08/22/2006 DX:Hyperlipidemi a HTN (hypertension) 03/18/2023 DX:HTN (hyper tension) Family History Medical History Relation Name Comments Heart attack Father 56 Diabetes Mother 76 Blindness Neg Hx Cataracts Neg Hx Glaucoma Neg Hx Macular degeneration Neg Hx Strabismus Neg Hx Relation Name Status Comments Brother 1 Alive stroke Brother 2 Brother 3 Brother 4 Father (Age 61) dm heart s moker Mother (Age 66) dm heart Sister 1 Alive cabg dm Sister 2 Alive Sister 3 Social History Tobacco Use Types Packs/Day Years [...] file Not on file Not on file Obstetrics History Last Filed Vital Signs Vital Sign Reading Time Taken Comments Blood Pressure 122/60 08/23/2024 7:54 AM EST Pulse 64 08/23/2024 7:54 AM EST Temperature - - Respiratory Rate - - Oxygen Saturation 99% 08/23/2024 7:54 AM EST Inhaled Oxygen Concentration - - Weight 61.7 kg (136 lb) 08/23/2024 7:54 AM EST Height 165.1 cm (5' 5 ) 08/23/2024 7:54 AM EST Body Mass Index 22.63 08/23/2024 7:54 AM EST Plan of Treatment Upcoming Encounters Date Type Department Care Team (Late st Contact Info) Description 12/14/2024 9:00 AM EDT Ancillary Procedure [facility] [address] [place] [address] Health Maintenance Due Date Last Done Comments Diabetes: Annual Foot Exam 1950 Diabetes: Annual Retina Eye Exam 1950 Hepatitis A Vaccines (1 of 2 - Risk 2-dose series) 1959 RSV Immunization Patients 60+ Years Old (1 - 1-dose 75+ series) 2015 Zoster Vaccines (2 of 2) 09/25/2020 07/31/2020 Depression Screening 08/29/2022 Falls Risk Assessment 08/29/2022 Medicare Annual Wellness Visit 08/29/2022 Social Influencers of Health Screening 08/29/2022 Diabetes: Annual Urine Albumin-Creatinine Ratio (uACR) 09/04/2022 05/01/2019 Diabetes: Blood Sugar Control Test (HGBA1C) 09/04/2022 09/22/2018 Cholesterol Screening (Lipid Panel) 05/09/2023 05/09/2018 Diabetes: Annual GFR (Glomerular Filtration Rate) 03/10/2025 03/10/2024, 03/10/2024 Hypertension/CHF/CAD Annual BMP Blood Test 03/10/2025 03/10/2024, 03/10/2024 DTaP,Tdap,and Td Vaccines (3 - Td or Tdap) 04/29/2033 04/29/2023, 09/02/2010 Pneumococcal Vaccine: 65+ Years Completed 09/09/2015, 07/18/2014, 11/29/2007, Additional history exists COVID-19 Vaccine Completed 06/04/2024, 07/2021, 01/04/2021, Additional history exists Influenza Vaccine Completed 06/04/2024, , 07/29/2022, Additional history exists HIB Vaccines Aged Out No longer eligi ble based on patient's age to complete this topic HPV Vaccines Aged Out No longer eligi ble based on patient's age to complete this topic Hepatitis B Vaccines Aged Out No long er eligible based on patient's age to complete this topic IPV Vaccines Aged Out No longer eligi ble based on patient's age to complete this topic MMR Vaccines Aged Out No longer eligi ble based on patient's age to complete this topic Meningococcal ACWY Vaccine Aged Out N o longer eligible based on patient's age to complete this topic RSV Immunization Patients Under 20 months Aged Out No longer eligible based on patient's age to complete this topic Varicella Vaccines Aged Out No longer eligible based on patient's age to complete this topic Medical Devices Implanted Type Area Card Puncher Device Identifier Shelf Expiration Date Model / Serial / Lot Medt-Card Oumou Gutierrez Dr [id number] Implanted:08/20 (Quantity not on file) Cardiac ICD MEDTRONIC - CARDIAC RHYTH-CRDM OUMOU Gutierrez DR [id number] / [id number] / Procedures Procedure Name Priority Date/Time Associated Diagnosis Comments CARDIAC DEVICE CHECK- REMOTE- MURJ Routine 08/30/2024 4:24 PM EST ECG 12-LEAD Routine 08/23/2024 12:02 PM EST Chest pain, unspecified type TRANSTHORACIC ECHOCARDIOGRAM (TTE) COMPLETE Routine 08/08/2024 3:22 PM EST Ischemic cardiomyopathy ANNUAL BMP BLOOD TEST Routine 03/10/2024 URINE ALBUMIN CREATININE RATIO Routine 05/01/2019 HEMOGLOBIN A1C Routine 09/22/2018 LIPID PANEL Routine 05/09/2018 from Last 3 Months or Most Recently Relevant to Health Maintenance Results * Cardiac device check - Remote- MURJ (08/30/2024 4:24 PM EST) Date Time Interrogation Session [id number] CV DEVICE CHECK Type Interrogation Session Remote CV DEVICE CHECK Implantable Pulse Generator Card Puncher MDT CV DEVICE CHECK Implantable Pulse Generator Type ICD CV DEVICE CHECK Implantable Pulse Generator Model Oumou Gutierrez [id number] CV DEVICE CHECK Implantable Pulse Generator Serial Number [id number] CV DEVICE CHECK Implantable Pulse Generator Implant Date [id number] CV DEVICE CHECK Battery Remaining Longevity 10.0 CV DEVICE CHECK Battery Voltage 2.880 CV D EVICE CHECK Battery 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 2.727 CV DEVICE CHECK Battery Status Middle of Service CV DEVICE CHECK Capacitor Charge Time 4.204 CV DEVICE CHECK Leonard Statistic RA Percent Paced 96.70 CV DEVICE CHECK Leonard Statistic RV Percent Paced 3.18 CV DEVICE CHECK Atrial Tachy Statistic AT/AF [place] Percent 0.00 CV DEVICE CHECK Lead Channel Sensing Intrinsic Amplitude 1.000 CV DEVICE CHECK Lead Channel Setting Sensing Sensitivity 0.45 CV DEVICE CHECK Lead Channel Impedance Value 380 CV DEVICE CHECK Lead Channel Pacing Threshold Amplitude 0.500 CV DEVICE CHECK Lead Channel Pacing Threshold Pulse Width 0.4 CV DEVICE CHECK Lead Channel RA Pacing Threshold Date 2024-07-12 CV DEVICE CHECK Lead Channel Setting Pacing Amplitude 1.250 CV DEVICE CHECK Lead Channel Setting Pacing Pulse Width 0.4 CV DEVICE CHECK Lead Channel Sensing Intrinsic Amplitude 7.875 CV DEVICE CHECK Lead Channel Setting Sensing Sensitivity 0.30 CV DEVICE CHECK Lead Channel Impedance Value 342 CV DEVICE CHECK Lead Channel Pacing Threshold Amplitude 0.750 CV DEVICE CHECK Lead Channel Pacing Threshold Pulse Width 0.4 CV DEVICE CHECK Lead Channel RV Pacing Threshold Date 2024-08-28 CV DEVICE CHECK Lead Channel Setting Pacing Amplitude 2.000 CV DEVICE CHECK Lead Channel Setting Pacing Pulse Width 0.4 CV DEVICE CHECK Leonard Setting Mode (NBG Code) AAIR<=>DDDR CV DEVICE CHECK Leonard Setting Lower Rate Limit 60 CV DEVICE CHECK Leonard Setting AT Mode Switch Rate 171 CV DEVICE CHECK Leonard Setting Maximum Tracking Rate 130 CV DEVICE CHECK Leonard Setting Maximum Sensor Rate 100 CV DEVICE CHECK Leonard Setting PAV Delay 180 CV DEVICE CHECK Leonard Setting KEON Delay 150 CV DEVICE CHECK Therapy Statistic Recent Shocks Delivered 0 CV DEVICE CHECK Therapy Statistic Recent Shocks Aborted 0 CV DEVICE CHECK Therapy Statistic Recent ATP Delivered 0 CV DEVICE CHECK RV HV Impedance 51 CV D EVICE CHECK Zone Setting Type Category AT/AF CV DEVICE CHECK Rate 171 CV DEVICE CHECK Therapies All Rx Off CV DEVICE CHECK Zone Setting Status Monitor CV DEVICE CHECK Zone ID 2 CV DEVICE CHECK Zone Setting Type Category VF CV DEVICE CHECK Rate 200 CV DEVICE CHECK Therapies ATP During Charging, 35Jx6 CV DEVICE CHECK Zone Setting Status On CV DEVICE CHECK Zone ID 3 CV DEVICE CHECK Zone Setting Type Category VT CV DEVICE CHECK Zone Setting Status Off CV DEVICE CHECK Zone ID 4 CV DEVICE CHECK Zone Setting Type Category VT CV DEVICE CHECK Zone Setting Status Off CV DEVICE CHECK Zone ID 5 CV DEVICE CHECK Zone Setting Type Category VT CV DEVICE CHECK Rate 150 CV DEVICE CHECK Rate 167 CV DEVICE CHECK Zone Setting Status ENABLED CV DEVICE CHECK Zone ID 6 CV DEVICE CHECK Date of Service 2024-09-12 CV DEVICE CHECK Anatomical Region Laterality Modality Device Interroga tion 08/29/2024 12:1 7 AM EST Impressions 08/30/2024 10:39 AM EST Normal Remote: With Events * Normal Device Function * Events or Alerts: 1 *6 beat VT * Battery: OK, 10 mos * Sensing, impedance and thresholds reviewed * Programmed parameters reviewed * Presenting rhythm reviewed * Heart Rate Histograms reviewed Narrative Procedure Note Benja Brown MD - 08/30/2024 IMPRESSION: Normal Remote: With Events * Normal Device Function * Events or Alerts: 1 *6 beat VT * Battery: OK, 10 mos * Sensing, impedance and thresholds reviewed * Programmed parameters reviewed * Presenting rhythm reviewed * Heart Rate Histograms reviewed Benja Brown MD CV IMPLANTABLE CARDI AC DEVICE PROCEDURES * ECG 12 lead (08/23/2024 12:02 PM EST) Ventricular Rate ECG 77 BPM GEMUSE Atrial Rate 62 BPM GEMUSE QRS Duration 94 ms GEMUSE Q-T Interval 406 ms GEMUSE QTc 459 ms GEMUSE R [place] 33 degrees GEMUSE T [place] -121 degrees GEMUSE ECG Interpretation Electronic atrial pacemaker Left ventricular hypertrophy with repolarization abnormality Abnormal ECG When compared with ECG of 07-JUN-2001 08:34, Electronic atrial pacemaker has replaced Sinus rhythm Vent. rate has increased BY ??28 BPM Inverted T waves have replaced nonspecific T wave abnormality in Inferior leads Confirmed by MD Emeka Sheridan ([id number]) on 08/24/2024 9:08:05 AM GEMUSE 08/23/2024 8:07 AM EST 08/24/2024 9:08 AM EST Adilene Lindsey NP ECG ORDERABLES GEMUSE * (ABNORMAL) TRANSTHORACIC ECHOCARDIOGRAM (TTE) COMPLETE (08/08/2024 3:22 PM EST) Left Atrium Minor [place] 6.6 cm CV PACS Left Atrium Major [place] 5.8 cm CV PACS LA Area Sys (A2C) 32 cm2 CV PACS LA Area Sys (A4C) 25 cm2 CV PACS LA Volume (BP) 113 mL CV PACS RA Area 20.7 cm2 CV PACS RA 2D Volume 54 mL CV PACS Aortic Sinus Valsalva 4.1 cm CV PACS Ascending Aorta 3.7 cm CV PACS IVSD 1.1(A) 0.6 - 1.0 cm CV PACS LVIDD 6.1(A) 4.2 - 5.8 cm CV PACS LVIDS 5.1(A) 2.5 - 4.0 cm CV PACS LVOT Diameter 2.2 cm CV PACS LVOT Mean [place] 0.5 m/s CV PACS LVOT Mean Grad 1 mmHg CV PACS LVOT Peak VTI 16.6 cm CV PACS LVOT Peak [place] 0.8 m/s CV PACS LVOT Peak Gradient 3 mmHg CV PACS LVPWD 1.0 0.6 - 1.0 cm CV PACS MV E' Tissue Velocity Lateral 6 cm/s CV PACS MV E' Tissue Velocity Septal 3 cm/s CV PACS LVOT Area 3.8 cm2 CV PACS LVOT Stroke Volume 63 mL CV PACS E Wave Deceleration Time 268(A) 119 - 242 ms CV PACS MV Peak A Fil[place] 0.48 m/s CV PACS MV Peak E [place] 0.61 m/s CV PACS NM End Max Velocity 1.0 m/s CV PACS PA End Diastolic Pressure 4 mmHg CV PACS PV Acceleration Time 116 ms CV PACS RV Diastolic Basal Dimension 4.0 2.5 - 4.1 cm CV PACS RV S' 7 cm/s CV PACS TAPSE 14 mm CV PACS E/E' Ratio Septal 20 CV PACS E/E' Ratio Averaged 15 CV PACS Relative Wall Thickness ratio 0.33 CV PACS FS 16 % CV PACS LV Mass 2D 270 g CV PACS LVOT flow 190 mL/s CV PACS E/A Ratio 1.3 CV PACS E/E' Ratio Lateral 10 CV PACS BSA 1.7 m2 CV PACS LA Volume Index (BP) 67 mL/m2 CV PACS LVIDD Index 3.61 cm/m2 CV PACS LVIDS Index 3.02 cm/m2 CV PACS LV Mass Index 2D 160(A) 50 - 102 g/m2 CV PACS LVOT Stroke Index 37 mL/m2 CV PACS RA 2D Volume Index 32 18 - 32 mL/m2 CV PACS Ascending Aorta Index 2.19 cm/m2 CV PACS Anatomical Region Laterality Modality Ultrasound Narrative 08/14/2024 9:40 AM EST ?Left ventricle cavity is mildly dilated. Left ventricular systolic function is mildly decreased with an ejection fraction of 40-45%. ?Extensive LV regional wall motion abnormality as described below. ?There is Grade II (moderate) diastolic dysfunction. ?Right ventricle cavity is normal. Right ventricular systolic function is mildly reduced. ?No hemodynamically significant valve disease. ?The Sinus of Valsalva is dilated (4.1 cm). Left Ventricle Left ventricle cavity is mildly dilated. Wall thickness is normal. Systolic function is mildly decreased with an ejection fraction of 40-45%. Extensive regional LV wall motion abnormality. Global hypokinesis with akinesis of the basal to mid inferolateral wall and basal inferior wall. There is Grade II (moderate) diastolic dysfunction. Right Ventricle Right ventricle cavity appears normal. Systolic function is mildly reduced. A pacer wire is present in the right ventricle. Left Atrium Left atrium cavity is severely dilated. Right Atrium A pacer wire is present in the right atrium. IVC/SVC Inferior vena cava was not well visualized. Mitral Valve The leaflets are mildly thickened. There is mild annular calcification. There is mild regurgitation with a centrally directed jet. There is no evidence of mitral valve stenosis. Tricuspid Valve Tricuspid valve structure is normal. There is mild regurgitation with a central jet. There is no significant tricuspid valve stenosis. Aortic Valve The aortic valve is trileaflet. The leaflets are not thickened and exhibit normal excursion. There is mild regurgitation with a centrally directed jet. There is no evidence of aortic valve stenosis. Pulmonic Valve The pulmonic valve was not well visualized. No significant pulmonic valve regurgitation. No significant pulmonary valve stenosis noted. Ascending Aorta The Sinus of Valsalva is dilated (4.1 cm). Pericardium Pericardium was not well visualized. There is no pericardial effusion. Study Details Overall the study quality was adequate. Wall Scoring Baseline Score Index: 2.18 The following segments are akinetic: basal inferior, basal inferolateral and mid inferolateral. The following segments are hypokinetic: basal anterior, basal anteroseptal, basal inferoseptal, basal anterolateral, mid anterior, mid anteroseptal, mid inferoseptal, mid inferior, mid anterolateral, apical anterior, apical septal, apical inferior, apical lateral and apex. Garret Hendrickson MD CV ECHO PROCEDURE S * Annual BMP Blood Test (03/10/2024) Pathologist [facility] Annual BMP Blood Test abstracted Historical Provider [facility] * Urine Albumin Creatinine Ratio (05/01/2019) [facility] Urine Albumin Creatinine Ratio abstracted Historical Provider [facility] E * (ABNORMAL) Hemoglobin A1c (09/22/2018) [facility] Hemoglobin A1C 8.2(A) 6.5 % Blood Venous blood specimen / Unknown Historical Provider LAB BLOOD ORDERAB LES * Lipid panel (05/09/2018) [facility] LDL/HDL Ratio 3 0 - 4 Triglycerides 65 0 - 150 mg/dL Cholesterol 146 0 - 200 mg/dL HDL 52 40 mg/dL LDL Cholesterol 81 0 - 100 mg/dL Blood Venous blood specimen / Unknown Historical Provider LAB BLOOD ORDERAB LES from Last 3 Months or Most Recently Relevant to Health Maintenance Care Teams Cable Puller Relationship Specialty Start Date End Date Ria Bryant MD [id number] [place] [address] PCP - General Internal Medicine 08/23/24
--- OUTSIDE RECORDS SUMMARY | 2024-10-20 08:24 | XMS_ITS | Continuity of Care Document ---
Author Organization [facility] Address [address] [place] [address]- Care Team Providers Care Vp Public Relations Name Role Phone Ria Bryant MD Primary Care Physician Encounter [facility] Date(s): 09/29/24 - 10/06/24 [facility] [address] [place] [address]- Encounter Diagnosis Uncontrolled diabetes mellitus with hyperglycemia(Discharge Diagnosis) - 09/29/24 Atrial fibrillation(Discharge Diagnosis) - 09/29/24 Ischemic cardiomyopathy(Discharge Diagnosis) - 09/29/24 Hyperlipidemia(Discharge Diagnosis) - 09/29/24 Hypertension(Discharge Diagnosis) - 09/29/24 Diabetes mellitus(Discharge Diagnosis) - 09/29/24 Dizziness(Discharge Diagnosis) - 09/29/24 Umbilical hernia(Discharge Diagnosis) - 09/29/24 Impacted cerumen of left ear(Discharge Diagnosis) - 09/29/24 Attending Physician: Troy GUNDERSON, [employer] [facility] Encounter Type: Office Visit Allergies, Adverse Reactions, Alerts No Known Allergies Immunizations Given and Recorded Vaccine Date Status Refusal Reason influenza virus vaccine, inactivated 06/04/24 Casey rded influenza virus vaccine, inactivated 1 08/03/23 Gi ada influenza virus vaccine, inactivated 07/29/22 Give n influenza virus vaccine, inactivated 2 07/17/21 Gi ada influenza virus vaccine, inactivated 05/20/20 Casey rded influenza virus vaccine, inactivated 07/11/19 Casey rded influenza virus vaccine, inactivated 05/31/18 Casey rded influenza virus vaccine, inactivated 06/30/17 Casey rded influenza virus vaccine, inactivated 07/14/16 Casey rded influenza virus vaccine, inactivated 07/05/15 Casey rded influenza virus vaccine, inactivated 07/18/14 Casey rded influenza virus vaccine, inactivated 07/10/13 Casey rded influenza virus vaccine, inactivated 09/06/12 Casey rded influenza virus vaccine, inactivated 07/21/11 Casey rded influenza virus vaccine, inactivated 09/02/10 Casey rded influenza virus vaccine, inactivated 06/08/09 Casey rded influenza virus vaccine, inactivated 06/19/05 Casey rded SARS-CoV-2(COVID-19)mRNA-LNP vac([id number]) 06/04/24 Recorded tetanus-diphtheria toxoids (Td) 3 04/29/23 Given tetanus-diphtheria toxoids (Td) 09/02/10 Recorded [id number] 12y+ bivalent booster vax 07/29/22 Given SARS-CoV-2 (COVID-19) mRNA-1273 vaccine 08/30/21 R ecorded SARS-CoV-2 (COVID-19) mRNA-1273 vaccine 01/04/21 R ecorded SARS-CoV-2 (COVID-19) mRNA-1273 vaccine 12/31/20 R ecorded SARS-CoV-2 (COVID-19) mRNA-1273 vaccine 12/03/20 R ecorded SARS-CoV-2 (COVID-19) mRNA-1273 vaccine 11/29/20 R ecorded zoster vaccine, inactivated 07/31/20 Recorded pneumococcal 13-valent vaccine 09/09/15 Recorded pneumococcal 23-valent vaccine 07/18/14 Recorded pneumococcal 23-valent vaccine 07/26/03 Recorded Pneumococcal Vaccine (oldterm) 11/29/07 Given 1Result Comment: [facility] 65883-955-16 2Result Comment: Patient tollerated well 3Result Comment: [facility] [address]-3 Medications Ascriptin Enteric 81 mg, By Mouth, Daily, Refills 0, Tot. Refills 0, 11/16/07 6:08:35 PM EST Start Date: 11/16/07 Status: Ordered Repeat number: 1 atorvastatin 40 mg oral tablet 1 tablet, By Mouth, Daily, # 90 tablet, 6 Refills, Maintenance, 09/29/24 9:21:00 AM EST, [facility], 164.03, cm, 09/29/24 8:39:00 EST, Height, 64.6, kg, 09/29/24 8:35:00 EST, Dry Weight Start Date: 09/29/24 Status: Ordered Quantity: 90.0 Unit: tablet Repeat number: 7 carvedilol 12.5 mg oral tablet 12.5 mg, 1, tablet, By Mouth, 2 times a day, # 60 tablet, Refills 6, Tot. Refills 6, Maintenance, 09/29/24 9:22:00 AM EST, Route to Pharmacy Electronically, [facility], Partial fill upon patient request if the prescription is for a schedule II opioid drug., 164.03, cm, 09/29/24 8:39:00 EST, Height, 64.6, kg, 09/29/24 8:35:00 EST, Dry Weight Start Date: 09/29/24 Status: Ordered Quantity: 60.0 Unit: tablet Repeat number: 7 Debrox Earwax Removal Kit 6.5% Otic Solution 5 drops, Ears, Both, 3 times a day, for 10 days, # 15 mL, 0 Refills, Acute 10/09/24 9:30:00 AM EST, 09/29/24 9:30:00 AM EST, Otic Solution, [facility], Partial fill upon patient request if the prescription is for a schedule II opioid drug., 5 drops Ears, Both 3 times a day,x10 days, 164.03, cm, 09/29/24 8:39:00 EST, Height, 64.6, kg, 09/29/24 8:35:00 EST, Dry Weight Start Date: 09/29/24 Stop Date: 10/09/24 Status: Ordered Quantity: 15.0 Unit: mL Repeat number: 1 glipiZIDE 10 mg oral tablet 1 tablet = 10 mg, By Mouth, 2 times a day, # 180 tablet, 6 Refills, Maintenance, 09/29/24 9:35:00 AMEST, Tablet, [facility], Partial fill upon patient request if the prescription is for a schedule II opioid drug., 164.03, cm, 09/29/24 8:39:00 EST, Height, 64.6, kg, 09/29/24 8:35:00 EST, Dry Weight Start Date: 09/29/24 Status: Ordered Quantity: 180.0 Unit: tablet Repeat number: 7 lisinopril 10 mg oral tablet 1, tablet, By Mouth, Daily, # 90 tablet, Refills 6, Tot. Refills 6, Maintenance, 09/29/24 9:21:00 AMEST, Route to Pharmacy Electronically, [facility], 164.03, cm, 09/29/24 8:39:00EST, Height, 64.6, kg, 09/29/24 8:35:00 EST, Dry Weight Start Date: 09/29/24 Status: Ordered Quantity: 90.0 Unit: tablet Repeat number: 7 magnesium oxide 400 mg oral tablet 2 times a day, 0 Refills, Maintenance, 11/09/23 9:28:00 AM EST, Partial fill upon patient request ifthe prescription is for a schedule II opioid drug. Start Date: 11/09/23 Stop Date: 02/07/24 Status: Ordered Repeat number: 1 metFORMIN 1000 mg oral tablet, extended release 1 tablet = 1,000 mg, By Mouth, 2 times a day, # 60 tablet, 0 Refills, Maintenance, 09/29/24 9:40:00 AM EST, ER Tablet, [facility], Partial fill upon patient request if the prescription is for a schedule II opioid drug. please call if not covered., 164.03, cm, 09/29/24 8:39:00 EST, Height, 64.6, kg, 09/29/24 8:35:00 EST, Dry Weight Start Date: 09/29/24 Status: Ordered Quantity: 60.0 Unit: tablet Repeat number: 1 metFORMIN 500 mg oral tablet 2 tablet, By Mouth, 2 times a day, # 120 tablet, 6 Refills, Maintenance, 09/29/24 9:22:00 AM EST, [facility], 164.03, cm, 09/29/24 8:39:00 EST, Height, 64.6, kg, 09/29/24 8:35:00 EST, Dry Weight Start Date: 09/29/24 Status: Ordered Quantity: 120.0 Unit: tablet Repeat number: 7 Nitrostat 0.4 mg sublingual tablet 1 tablet = 0.4 mg, Sublingual, Every 5 minutes, PRN Chest Pain, # 100 tablet, 0 Refills, Maintenance, 11/03/19 4:02:00 PM EST, Tablet, [id number], 166, cm, 11/03/19 15:28:00 EST, Height, 65.3, kg, 11/01/19 22:48:00 EST, Dry Weight Start Date: 11/03/19 Stop Date: 12/03/19 Status: Ordered Quantity: 100.0 Unit: tablet Repeat number: 1 One Touch Ultra Test Strips See Instructions, # 100 each, Refills 1, Tot. Refills 1, Maintenance, use with one touch ultra2 meter check sugars once daily dx- E11.65 duration - 90 days/ 1refill, 03/03/24 5:13:00 PM EDT, Supply, 164.03, cm, 11/09/23 8:55:00 EST, Height, 66.2, kg, 11/09/23 8:49:00 EST, Dry Weight Start Date: 03/03/24 Status: Ordered Quantity: 100.0 Unit: each Repeat number: 2 Problem List Condition Confirmation Course Effective Dates Status H ealth Status Informant Atrial fibrillation Confirmed Active Diabetes mellitus Confirmed Active Uncontrolled diabetes mellitus with hyperglycemia Confirmed Active Dizziness Confirmed Active Ischemic cardiomyopathy Confirmed Active Hyperlipidemia Confirmed Active Hypertension Confirmed Active Umbilical hernia Confirmed Active Diagnosis Diagnosis Type Effective Dates Health Status Clinical Service Informant Uncontrolled diabetes mellitus with hyperglycemia Discharge Diagnosis 09/29/24 Atrial fibrillation Discharge Diagnosis 09/29/24 Ischemic cardiomyopathy Discharge Diagnosis 09/29/24 Hyperlipidemia Discharge Diagnosis 09/29/24 Hypertension Discharge Diagnosis 09/29/24 Diabetes mellitus Discharge Diagnosis 09/29/24 Dizziness Discharge Diagnosis 09/29/24 Umbilical hernia Discharge Diagnosis 09/29/24 Impacted cerumen of left ear Discharge Diagnosis 09/29/24 Vital Signs Most recent to oldest [Reference Range]: 1 2 Height 164.03 cm (09/29/24 8:39 AM) 164.03 cm (09/29/24 8:35 AM) Weight 64.6 kg (09/29/24 8:35 AM) Oxygen Saturation [94-100 %] 98 % (09/29/24 8:35 AM) Pulse Rate [55-90 bpm] 83 bpm (09/29/24 8:35 AM) Body Mass Index [18.5-24.99 kg/m2] 24.01 kg/m2 (09/29/24 8:35 AM) Blood Pressure [90-138/55-84 mm Hg] 127/ 85mm Hg (09/29/24 8:39 AM) 146/83mm Hg *H* (09/29/24 8:35 AM) Mode of Delivery (Oxygen) Room air (09/29/24 8:35 AM) Blood pressure sites Arm, left (09/29/24 8:39 AM) Arm, right (09/29/24 8:35 AM) Dry Weight 64.6 kg (09/29/24 8:35 AM) Weight Obtained Via Standing scale (09/29/24 8:35 AM) Dry Weight Obtained Via Standing scale (09/29/24 8:35 AM) Social History Social History Type Response Smoking Status Never smoker entered on: 02/12/16 Sex Sex Representation Male (finding) Note * Vale Dodd: PERFORM Event Display: Patient Education/Instruction Authored Date: Ambulatory Adult Visit Summary [facility] [address] [place] [id number] Name: SOREN BECKHAM : 1940?? Visit: 09/29/2024 08:29?? Ambulatory Visit Instructions ?? Your Care Team Primary Care Provider Ria Bryant MD? This Visit Provider Yessenia Simmons MD Your Diagnosis Diabetes Anemia Vitals Signs Pulse Rate: 83 bpm Height: 164.03 cm Systolic Blood Pressure: 127 mm Hg Weight: 64.6 kg Diastolic Blood Pressure:??85 mm Hg??High Body Mass Index: 24.01 kg/m2 Oxygen Saturation: 98 % Body surface area: 1.72 What to do next Scheduled Follow-Up Appointments 2024 8:40 AM EDT ?? With: Ria Bryant MD Where: [facility] [address] [place] [id number]- Status: Pending Future Orders CBC w/ Differential - Routine, Once, 03/29/24 13:41:00 EDT, Future Order, [facility], Blood?? Iron + Iron Binding Capacity - Routine, Once, 03/29/24 13:41:00 EDT, Future Order, [facility], Blood?? Ferritin - Routine, Once, 03/29/24 13:41:00 EDT, Future Order, [facility], Blood?? Renal Panel (10) - Routine, Once, 03/29/24 13:42:00 EDT, Future Order, [facility], Blood?? Magnesium Level - Routine, Once, 03/29/24 13:42:00 EDT, Future Order, [facility], Blood?? Hemoglobin A1C (Monitoring) - Routine, Once, 03/29/24 13:43:00 EDT, Future Order, [facility], Blood?? Lipid Panel - Routine, Once, 09/29/24 9:32:00 EST, Within 3 Days, [facility], Blood?? Microalbumin Urine - Routine, Once, 09/29/24 9:32:00 EST, Within 3 Days, [facility], Urine?? CBC w/ Differential - Routine, Once, 09/29/24 9:33:00 EST, Within 3 Days, [facility], Blood?? Comprehensive Metabolic Panel - Routine, Once, 09/29/24 9:33:00 EST, Within 3 Days, [facility], Blood?? Magnesium Level - Routine, Once, 09/29/24 9:33:00 EST, Within 3 Days, [facility], Blood?? Ferritin - Routine, Once, 09/29/24 9:33:00 EST, Within 3 Days, [facility], Blood?? Vitamin B12 Level (B12 Vitamin Level) - Routine, Once, 09/29/24 9:34:00 EST, Within 3 Days, [facility], Blood?? Medications The list below reflects the information in our records and provided by you today along with any changes made during this visit. Please continue your medications until treatment is completed or stopped by your provider. If this is different from the information you have or there are other questions,please contact the prescribing provider. What How Much When Instructions New Carbamide Peroxide Otic (Debrox Earwax Removal Kit 6.5% Otic Solution) 5 Drops Both ears 3 times a day Duration: 10 Days Pickup at [facility] Changed Metformin (metFORMIN 1000 mg oral tablet, extended release) 1 tab(s) Oral Twice a day Pickup at [facility] Changed Metformin (metFORMIN 500 mg oral tablet) 2 tab(s) Oral Twice a day Pickup at [facility] Unchanged Aspirin (Ascriptin Enteric) 81 Milligram Oral Daily Unchanged Atorvastatin (atorvastatin 40 mg oral tablet) 1 tab(s) Oral Daily Pickup at [facility] Unchanged Carvedilol (carvedilol 12.5 mg oral tablet) 1 tab(s) Oral Twice a day Pickup at [facility] Unchanged Durable Medical Equipment (One Touch Ultra Test Strips) See instructions use with one touch ultra2 meter check sugars once daily dx- E11.65 duration - 90 days/ ?? 1refill ?? Unchanged GlipiZIDE (glipiZIDE 10 mg oral tablet) 1 tab(s) Oral Twice a day Pickup at [facility] Unchanged Lisinopril (lisinopril 10 mg oral tablet) 1 tab(s) Oral Daily Pickup at [facility] Unchanged Magnesium Oxide (magnesium oxide 400 mg oral tablet) Twice a day Duration: 90 Days Unchanged Nitroglycerin (Nitrostat 0.4 mg sublingual tablet) 1 tab(s) Sublingual Every 5 minutes as needed for Chest Pain Duration: 30 Days Pharmacy Information [facility]: [address], [place] [id number] [phone] Test Performed Below is a partial list of the tests performed during your Visit. You may have had other tests and procedures not included in this list. Please discuss all test results with your provider. B12 Vitamin Level?-- Results Pending -- CBC w/ Differential?-- Results Pending -- Comprehensive Metabolic Panel?-- Results Pending -- Ferritin?-- Results Pending -- Lipid Panel?-- Results Pending -- Magnesium Level?-- Results Pending -- Microalbumin Urine?-- Results Pending -- POC HBA1C ([facility]) Lab Test Results Below is a partial list of the most recent Laboratory test results done during your Visit. You may have had other tests and procedures not included in this list. Please discuss all test results with your provider. Test Name Test Result Date/Time POC HBA1C ([facility]) 9.1 % 09/29/2024 09:21 EST Medications and Immunizations Administered Medications Given During Visit No medications given during this visit.?? Allergies (NKA means No Known Allergies) NKA Common Emergency Awareness Tips IS IT A [...] are strongly encouraged to quit. Please call [employer] Link at [phone] or [phone] Rounds ([phone]) or log in to [email or web address] for referrals to smoking cessation programs. ?? The National Suicide Prevention Hotline is available 12/04 if you or someone you know needs to find a reason to keep living. By calling 3-865-399-[employer] (8878) you'll be connected to a skilled, trained counselor at a crisis center in your area. [facility] Portal You can view and manage your care through the patient portal or by using a health care asif of your choosing. [employer] is a website that allows you to securely view your medical information including your hospital discharge summary, office visit summaries, medications and follow-up visits. You can also request appointments, renew medications, and request access to your medical information using a health care asif of your choosing, or just ask a question. You can enroll at [email or web address] or register during your next office visit. [facility], in keeping with [facility] guidance, no longer requires face masks for staff, patientsor visitors in most situations. Similiar to time spent indoors at other locations, there is the chance that you were exposed to repiratory viruses during your time with us (such as flu or COVID-19). If you develop symptoms concerning for a viral respiratory infection, please seek testing (and treatment if indicated) from your medical provider or home test kit. ?? Disclaimer: The information provided is of a general nature and is intended to be used in conjunction with the recommendations and advice of your health care practitioner. Every effort has been made to ensure that the information provided is accurate and complete at the time it is provided to you however, as your needs change, or, as new information becomes available, different or additional instructions may be required. ?? If you have questions, please consult with your primary care provider or pharmacist, as appropriate. This information is not intended to serve as substitution for assessment and evaluation by a qualified health care provider. If you do not have a primary care provider, you may find a [facility] provider by calling [facility] at [phone]. Patient Care team information Care Team Personnel Name: Barbi Rios RN Position: [facility] RN Member Role: Primary Care Nurse Name: Shantal Garcia RN Position: S RN Member Role: Primary Care Nurse Name: Ria Bryant MD Position: [facility] Physician - Primary Care Member Role: PCP Address: [address] [place] [address] [facility] [address] Telecom: Name: Lisha Cardenas RN Position: S RN Member Role: Primary Care Nurse Name: Aster Ellison RN Position: S RN Member Role: Primary Care Nurse Name: Yesy Hylton RN Position: S RN Member Role: Primary Care Nurse Name: Kati Gordon RN Position: S RN Member Role: Primary Care Nurse Care Team Related Persons Name: MARK WELLINGTON Name: FANY CASE Insurance Providers Guarantor name: SOREN BECKHAM Health Plan Information #: 1 Payer: MEDICARE PART B OUTPT Member Number: [id number] Policy Number: NA Group Number: NA Health Plan Information #: 2 Payer: MEDEX Member Number: [id number] Policy Number: NA Group Number: [id number]
[2024-10-20 08:34] LABS: ~PT, ~INR - Anti Coag Clinic 1.9 (0.9-1.1)
--- NOTE | 2024-10-20 08:34 | MHC.OFFVISCO ---
Intake Intake Visit Reasons: Anticoagulation Allergies isosorbide Adverse Reaction (Unknown, Verified 10/20/24 08:22) dizziness Medication List - Last Reconciled 10/20/24 by Sherie Ramirez RN atorvastatin 40 mg PO DAILY carvedilol 12.5 mg PO BID furosemide 20 mg PO DAILY glipizide 10 mg PO BID lisinopril 10 mg PO DAILY magnesium oxide 400 mg PO BID metformin 1,000 mg PO BID nitroglycerin 0.4 mg sublingual DAILY omeprazole 20 mg PO DAILY@0630 30 days sacubitril-valsartan 24-26 mg (Entresto) 1 tab PO BID warfarin 5 mg See Protocol PO DAILY@1800 Nursing Note INR: 1.9?out of therapeutic range of 2-3 Medications and supplements reviewed Patient status: well Medications or supplements: no changes Diet: usual diet for pt Denies any signs and symptoms of bleeding or clotting or unusual bruising Bleeding, bruising, clotting discussed Nutritional guidance given: to avoid greens and to have a serving or two of food from the list that raises the INR Dose: 7.5mg X 6 days and 5mg X1 day (Wed) F/U INR Date : 4 weeks?? Patient verbalizing understanding of instructions read back given. Anti-Coag Initial Assessment Social Hx Patient Tobacco Use Status: Never used Tobacco alcohol intake: former Alcohol intake frequency: does not drink Cardiovascular Hx: HTN, Angina, [place], Arrhythmias, Cardiomyopathy and Other Endocrine Hx: Diabetes Blood Disorder Hx: Hyperlipidemia Hx: Kidney Disease Cancer HX: No Psych. Illness/Depression: Yes Coding Level of Care Code Est Patient Level 1 Diagnoses Current use of anticoagulant therapy Z79.01 Results AMB INR Fingerstick AMB INR Fingerstick 1.9 Last Edit by Sherie Ramirez RN on 10/20/24 08:28 interface delay Assessment & Plan Assessment & Plan (1) Current use of anticoagulant therapy: Code(s): Z79.01 - skilled nursing (current) use of anticoagulants
== END 2024-10-20 08:36 | disposition home or self-care (01) ==
LOC: HO.ACS 08:20
PROVIDERS: PCP Internal Medicine; Visit Provider Internal Medicine
DX: Z79.01 Long term (current) use of anticoagulants (principal)

== ENCOUNTER → 2024-10-20 08:20 | Outpatient (BNVA) | payer MEDICARE, SELFPAY | PROVIDERS: PCP Internal Medicine; Visit Provider Internal Medicine | DX: I48.0 Paroxysmal atrial fibrillation (principal); Z79.01 Long term (current) use of anticoagulants; Z51.81 Encounter for therapeutic drug level monitoring | CPT/HCPCS: 85610; 99211 ==

== ENCOUNTER 2024-10-24 08:17 | Outpatient (REF) | payer MEDICARE, SELFPAY ==
--- OUTSIDE RECORDS SUMMARY | 2024-10-24 08:24 | XMS_ITS | Clinical Summary ---
Author Organization [address] [place] [address] Address [address] [place] [address] Phone Care Team Providers Care Reception Clerk Name Role Phone Ria Bryant MD Primary Care Provider [phone] Allergies No known active allergies Medications Medication [...] 08/22/2006 Coronary artery disease 06/09/2006 Overview (06/27/2024): [place] 1998 stent LAD 2004 EF 45% Last [...] Type Department Care Team Description 10/17/2024 Telephone [facility] - [address] [place] [phone] Garret Hendrickson MD medication 08/30/2024 4:25 PM EST Ancillary Procedure [facility] - [address] [place] [address] 08/23/2024 7:40 AM EST Office Visit [facility] - [address] [place] [phone] Adilene Lindsey NP Chest pain, unspecified type (Primary Dx); Ventricular tachyarrhythmia (CMS/HCC); Sinoatrial node dysfunction (CMS/HCC); Atrial fibrillation, unspecified type (CMS/HCC); Ischemic cardiomyopathy 08/08/2024 2:30 PM EST Ancillary Procedure [facility] Card[facility] - [address] [place] [address] Ischemic cardiomyopathy from Last 3 Months Immunizations [...] Coronary atherosclerosis of unspecified type of vessel, [place] or graft 06/09/2006 DX:Coronary atherosclerosis of unspecified type of vessel, [place] or graft; COMMENT: [place] 1998 Alcohol abuse, unspecified 08/19/2006 DX:Al cohol [...] Description 12/14/2024 9:00 AM EDT Ancillary Procedure [facility] - [address] [facility] [address] [place] [address] Health Maintenance Due Date Last Done Comments [...] this topic Medical Devices Implanted Type Area Senior Structural Engineer Device Identifier Shelf Expiration Date Model / Serial / Lot Medt-Card Oumou Gutierrez Dr [id number] Implanted:08/20 (Quantity not on file) Cardiac ICD MEDTRONIC - CARDIAC RHYTH-CRDM OUMOU Gutierrez DR [id number] / [id number] / Procedures Procedure Name Priority Date/Time Associated [...] 4:24 PM EST) Date Time Interrogation Session [id number] CV DEVICE CHECK Type Interrogation Session Remote CV DEVICE CHECK Implantable Pulse Generator Senior Structural Engineer MDT CV DEVICE CHECK Implantable Pulse Generator Type ICD CV DEVICE CHECK Implantable Pulse Generator Model Oumou Gutierrez [id number] CV DEVICE CHECK Implantable Pulse Generator Serial Number [id number] CV DEVICE CHECK Implantable Pulse Generator Implant Date 20150829 CV DEVICE CHECK Battery Remaining Longevity 10.0 CV DEVICE CHECK Battery Voltage 2.880 CV D EVICE CHECK Battery GRANITE CUTTER APPRENTICE Trigger 2.727 CV DEVICE CHECK Battery Status Middle of Service CV DEVICE CHECK Capacitor Charge Time 4.204 CV DEVICE CHECK Leonard Statistic RA Percent Paced 96.70 CV DEVICE CHECK Leonard Statistic RV Percent Paced 3.18 CV DEVICE CHECK Atrial Tachy Statistic AT/AF [place] Percent 0.00 CV DEVICE CHECK Lead Channel [...] ms GEMUSE QTc 459 ms GEMUSE R [place] 33 degrees GEMUSE T [place] -121 degrees GEMUSE ECG Interpretation Electronic atrial pacemaker Left ventricular hypertrophy with repolarization abnormality Abnormal ECG When compared with ECG of 07-JUN-2001 08:34, Electronic atrial pacemaker has replaced Sinus rhythm Vent. rate has increased BY ??28 BPM Inverted T waves have replaced nonspecific T wave abnormality in Inferior leads Confirmed by MD Emeka Sleepy Eye ([id number]) on 08/24/2024 9:08:05 AM GEMUSE 08/23/2024 8:07 AM EST 08/24/2024 9:08 AM EST Adilene Lindsey NP ECG ORDERABLES GEMUSE * (ABNORMAL) TRANSTHORACIC ECHOCARDIOGRAM (TTE) COMPLETE (08/08/2024 3:22 PM EST) Left Atrium Minor [place] 6.6 cm CV PACS Left Atrium Major [place] 5.8 cm CV PACS LA Area Sys [...] Peak E Filiberto 0.61 m/s CV PACS MT End Max Velocity 1.0 m/s CV PACS [...] * Annual BMP Blood Test (03/10/2024) Pathologist [facility] Annual BMP Blood Test abstracted Historical Provider [facility] [employer] E * Urine Albumin Creatinine Ratio (05/01/2019) [facility] Urine Albumin Creatinine Ratio abstracted Historical Provider [facility] E * (ABNORMAL) Hemoglobin A1c (09/22/2018) [facility] Hemoglobin A1C 8.2(A) 6.5 % Blood Venous blood specimen / Unknown Historical Provider LAB BLOOD ORDERAB LES * Lipid panel (05/09/2018) [facility] LDL/HDL Ratio 3 0 - 4 Triglycerides 65 0 - 150 mg/dL Cholesterol 146 0 - 200 mg/dL HDL 52 40 mg/dL LDL Cholesterol 81 0 - 100 mg/dL Blood Venous blood specimen / Unknown Historical Provider LAB BLOOD ORDERAB LES from Last 3 Months or Most Recently Relevant to Health Maintenance Care Teams Reception Clerk Relationship Specialty Start Date End Date Ria Bryant MD [address] [place] [address] PCP - General Internal Medicine 08/23/24
--- OUTSIDE RECORDS SUMMARY | 2024-10-24 08:24 | XMS_ITS | Encounter Summary ---
Author Organization [place] [address] Care Team Providers Care Apple Turner Name Role Phone Ria Bryant MD Primary Care Provider [phone] Reason for Visit * Reason Onset Date Comments medication 10/17/2024 Encounter Details Date Type Department Care Team ([facility] st Contact Info) Description 10/17/2024 Telephone [facility] [address] [facility] [address] [place] [phone] Garret Hendrickson MD [address] [facility] [address] [place] [address] medication Social History Tobacco Use Types Packs/Day [...] Description 12/14/2024 9:00 AM EDT Ancillary Procedure [facility] - [facility] [address] [facility] [address] [place] [address] documented as of this encounter Visit Diagnoses Not on filedocumented in this encounter Discontinued Medications Medication Sig Discontinue Reason Start Date End Da te magnesium oxide (MAG-OX) 400 mg (241.3 elemental magnesium) tablet Take 1 tablet (400 mg total) by mouth 2 (two) times a day. Entered in Error 03/15/2024 10/18/2024 documented as of this encounter Care Teams Apple Turner Relationship Specialty Start Date End Date Ria Bryant MD [address] [place] [address] PCP - General Internal Medicine 08/23/24 documented as of this encounter
[2024-10-24 08:34] LABS: MANUAL DIFF FLAG NO
[2024-10-24 09:17] LABS: Basophils Percent Auto 0.5 % (0-2); Eosinophils Absolute Auto 0.1 X10*3/uL (0.0-0.4); Eosinophils Percent Auto 1.4 % (0-4); Hematocrit 38.7 % (42.0-52.0); Imm Gran Abs Auto 0.01 X10*3/uL (0.00-0.03); Imm Gran Pct Auto 0.2 % (0.0-0.4); Lymphocytes Absolute Auto 1.2 X10*3/uL (1.2-4.9); Lymphocytes Percent Auto 21.2 % (20-40); Mean Corpuscular HGB Conc 33.6 g/dl (31.0-36.0); Mean Corpuscular Volume 92.4 fL (80.0-98.0); Mean Platelet Volume 10.5 fL (9.4-12.4); Monocytes Absolute Auto 0.5 X10*3/uL (0.1-1.2); Monocytes Percent Auto 8.6 % (2-11); Neutrophils Absolute Auto 3.9 x10*3/uL (2.0-8.3); Neutrophils Percent Auto 68.1 % (45-73); Platelet Count 166 X10*3/uL (160-400); Red Blood Count 4.19 X10*6/uL (4.60-5.80); Red Cell Distribution Width 12.8 % (11.0-16.0); White Blood Count 5.7 X10*3/uL (4.8-10.8)
[2024-10-24 09:58] LABS: Alanine Aminotransferase 37 U/L (0-40); Albumin Level 4.1 g/dL (3.5-5.0); Alkaline Phosphatase 106 U/L (39-117); Anion Gap 18 (12-20); Aspartate Amino Transferase 32 U/L (5-37); Bilirubin Total 0.8 mg/dL (0.0-1.0); Blood Urea Nitrogen 16 mg/dL (9-16); Calcium 9.7 mg/dL (8.4-10.2); Carbon Dioxide 27 mmol/L (22-29); Chloride 103 mmol/L (96-108); Cholesterol 139 mg/dL (<200); Estimated Glomerular Filt Rate > 60; Glucose Random 110 mg/dL (60-115); HDL Cholesterol 42 mg/dL (>40); LDL Cholesterol Calculated 77 mg/dL (<100); Magnesium 1.6 mg/dL (1.6-2.6); Potassium 4.8 mmol/L (3.3-5.1); Sodium 143 mmol/L (135-145); Total Protein 7.3 g/dL (6.5-8.0); Triglycerides 103 mg/dL (<150)
[2024-10-24 10:03] LABS: Ferritin 44 ng/mL (20-250)
[2024-10-24 10:14] LABS: Vitamin B12 491 pg/mL (200-900)
[2024-10-24 11:50] LABS: Creatinine Urine 51.57 mg/dL; Microalbum/Creatinine Ratio Ur 91.1 ug/mg cr (<30)
== END 2024-10-24 08:18 | disposition home or self-care (01) ==
LOC: HO.LAB 08:17
PROVIDERS: PCP Internal Medicine; Visit Provider Internal Medicine
DX: E11.9 Type 2 diabetes mellitus without complications (principal); D64.9 Anemia, unspecified
CPT/HCPCS: 36415; 80053; 80061; 82043; 82570; 82607; 82728; 83735; 85025

== ENCOUNTER 2024-11-10 08:41 | Outpatient (AMB) | payer MEDICARE, SELFPAY ==
--- NOTE | 2024-11-10 08:48 | MHC.OFFVISCO ---
Intake Intake Visit Reasons: Anticoagulation Allergies isosorbide Adverse Reaction (Unknown, Verified 11/10/24 08:41) dizziness Medication List - Last Reconciled 11/10/24 by Sherie Ramirez RN atorvastatin 40 mg PO DAILY carvedilol 12.5 mg PO BID furosemide 20 mg PO DAILY glipizide 10 mg PO BID lisinopril 10 mg PO DAILY magnesium oxide 400 mg PO BID metformin 1,000 mg PO BID nitroglycerin 0.4 mg sublingual DAILY omeprazole 20 mg PO DAILY@0630 30 days sacubitril-valsartan 24-26 mg (Entresto) 1 tab PO BID warfarin 5 mg See Protocol PO DAILY@1800 Nursing Note INR: 2.6 in therapeutic range of 2-3 Medications and supplements reviewed No changes in health, diet, medications, or supplements, Denies any signs and symptoms of bleeding or bruising or clotting. Bleeding, bruising, clotting discussed Nutritional guidance given Dose: 7.5mg X 6 days and 5mg X 1 day F/U INR: 4 weeks Patient verbalizes understanding of instructions given Anti-Coag Initial Assessment Social Hx Patient Tobacco Use Status: Never used Tobacco alcohol intake: former Alcohol intake frequency: does not drink Cardiovascular Hx: HTN, Angina, CO, Arrhythmias, Cardiomyopathy and Other Endocrine Hx: Diabetes Blood Disorder Hx: Hyperlipidemia Hx: Kidney Disease Cancer HX: No Psych. Illness/Depression: Yes Coding Level of Care Code Est Patient Level 1 Diagnoses Current use of anticoagulant therapy Z79.01 Results AMB INR Fingerstick AMB INR Fingerstick 2.6 Last Edit by Sherie Ramirez RN on 11/10/24 08:47 interface delay Assessment & Plan Assessment & Plan (1) Current use of anticoagulant therapy: Code(s): Z79.01 - jail (current) use of anticoagulants
--- OUTSIDE RECORDS SUMMARY | 2024-11-10 08:58 | XMS_ITS | Clinical Summary ---
Author Organization [address] [place] [address] Address [address] [place] [address] Phone Care Team Providers Care Distance Learning Unit Leader Name Role Phone Ria Bryant MD Primary Care Provider [phone] Allergies No known active allergies Medications lancets lancets Apply 1 Each topically daily. test bid and prn 8 Active blood glucose control high,low (FreeStyle Control) solution as needed. 6 Active glucose blood test strip Apply 1 Strip topically daily. test bid and prn 8 Active atorvastatin (LIPITOR) 40 mg tablet Take 1 tablet (40 mg total) by mouth 1 (one) time each day. 9 Active carvediloL (COREG) 12.5 mg tablet Take 1 Tablet by mouth 2 times daily (with meals). 4 Active furosemide (LASIX) 20 mg tablet Take 1 Tablet by mouth daily for 180 days. 4 Active glipiZIDE (GLUCOTROL) 10 mg tablet Take 1 tablet (10 mg total) by mouth 2 (two) times a day before meals. 9 Active metFORMIN (GLUCOPHAGE) 500 mg tablet Take 2 tablets (1,000 mg total) by mouth 2 (two) times a day. 3 Active nitroglycerin (NITROSTAT) 0.[address] 1 Tablet under the tongue every 5 minutes as needed for Chest pain (Up to three doses. If chest pain is not relieved after 2 tablets, take a 3rd and call 9-1-1.). 4 Active omeprazole OTC (PriLOSEC OTC) 20 mg EC tablet Take 1 tablet (20 mg total) by mouth 1 (one) time each day. Do not crush, chew, or split. Active warfarin (COUMADIN) 5 mg tablet Take 1 tablet (5 mg total) by mouth 1 (one) time each day with dinner. 90 tablet 2 4 Active lisinopriL (PRINIVIL,ZESTR IL) 10 mg tablet Take 1 tablet (10 mg total) by mouth 1 (one) time each day. Active magnesium oxide (MAG-OX) 400 mg magnesium tablet Take 1 tablet (400 mg total) by mouth 2 (two) times a day. 180 tablet 1 5 Active magnesium oxide (MAG-OX) 400 mg (241.3 elemental magnesium) tablet Take 1 tablet (400 mg total) by mouth 2 (two) times a day. 4 10/18/19 25 Discontinu ed(Entered in Error) Active Problems Problem Noted Date [...] monitoring - no landline Dr. Brown Revised 2015 Assessment & Plan (08/23/2024 12:06 PM EST): He continues to follow closely with our device clinic. Last remote device download from May 2024 revealed predominantly atrial pacing and normal device function. Hyperlipidemia 08/22/2006 Coronary artery disease 06/09/2006 Overview (06/27/2024): [place] 1998 stent LAD 2004 EF 45% Last [...] Type Department Care Team Description 10/17/2024 Telephone [facility] Cardiology [facility] - [address] [place] [address] Garret Hendrickson MD medication 08/30/2024 4:25 PM EST Ancillary Procedure [facility] - [address] [place] [address] 08/23/2024 7:40 AM EST Office Visit [facility] - [address] [place] [address] Adilene Lindsey NP Chest pain, unspecified type (Primary Dx); Ventricular tachyarrhythmia (CMS/HCC); Sinoatrial node dysfunction (CMS/HCC); Atrial fibrillation, unspecified type (CMS/HCC); Ischemic cardiomyopathy from Last 3 Months Immunizations [...] Coronary atherosclerosis of unspecified type of vessel, [place] or graft 06/09/2006 DX:Coronary atherosclerosis of unspecified type of vessel, [place] or graft; COMMENT: [place] 1998 Alcohol abuse, unspecified 08/19/2006 DX:Al cohol [...] Recorded Sex Assigned at Not on file Legal Sex Male 9:43 AM EST Gender Identity Not on file Sexual Orientation Not on file Obstetrics History Last Filed [...] Description 12/14/2024 9:00 AM EDT Ancillary Procedure [facility] - [facility] [address] [facility] [address] [place] [address] Health Maintenance Due Date Last Done Comments [...] or Tdap) 04/29/2033 04/29/2023, 09/02/2010 Pneumococcal Vaccine: 50+ Years Completed 09/09/2015, 07/18/2014, 11/29/2007, Additional history [...] patient's age to complete this topic Meningococcal B Vacine Aged Out No lo nger eligible based on patient's age to complete this topic RSV Immunization Patients Under 20 months Aged Out No longer eligible based on patient's age to complete this topic Varicella Vaccines Aged Out No longer eligible based on patient's age to complete this topic Medical Devices Implanted Type Area Burial Agent Device Identifier Shelf Expiration Date Model / Serial / Lot Medt-Card Oumou Gutierrez Dr [id number] Implanted:08/20 (Quantity not on file) Cardiac ICD MEDTRONIC - CARDIAC RHYTH-CRDM OUMOU Gutierrez DR [id number] / [id number] / Procedures Procedure Name Priority Date/Time Associated Diagnosis Comments CARDIAC DEVICE CHECK- REMOTE- MURJ Routine 08/30/2024 4:24 PM EST ECG 12-LEAD Routine 08/23/2024 12:02 PM EST Chest pain, unspecified type ANNUAL BMP BLOOD TEST Routine 03/10/2024 URINE ALBUMIN CREATININE RATIO Routine 05/01/2019 HEMOGLOBIN A1C Routine 09/22/2018 LIPID PANEL Routine 05/09/2018 from Last 3 Months or Most Recently Relevant to Health Maintenance Results * Cardiac device check - Remote- MURJ (08/30/2024 4:24 PM EST) Date Time Interrogation Session [id number] CV DEVICE CHECK Type Interrogation Session Remote CV DEVICE CHECK Implantable Pulse Generator Burial Agent MDT CV DEVICE CHECK Implantable Pulse Generator Type ICD CV DEVICE CHECK Implantable Pulse Generator Model Oumou Gutierrez [id number] CV DEVICE CHECK Implantable Pulse Generator Serial Number [id number] CV DEVICE CHECK Implantable Pulse Generator Implant Date 20150829 CV DEVICE CHECK Battery Remaining Longevity 10.0 CV DEVICE CHECK Battery Voltage 2.880 CV D EVICE CHECK Battery FIRE EXTINGUISHER SPRINKLER INSPECTOR Trigger 2.727 CV DEVICE CHECK Battery Status Middle of Service CV DEVICE CHECK Capacitor Charge Time 4.204 CV DEVICE CHECK Leonard Statistic RA Percent Paced 96.70 CV DEVICE CHECK Leonard Statistic RV Percent Paced 3.18 CV DEVICE CHECK Atrial Tachy Statistic AT/AF [place] Percent 0.00 CV DEVICE CHECK Lead Channel [...] Maximum Tracking Rate 130 CV DEVICE CHECK Leonadr Setting Maximum Sensor Rate 100 CV DEVICE [...] rhythm reviewed * Heart Rate Histograms reviewed Result [facility] Benja Brown MD CV IMPLANTABLE CARDIAC DEVICE PROCEDURES Final Result * ECG 12 lead (08/23/2024 12:02 PM EST) Pathologist [facility] Ventricular Rate ECG 77 BPM GEMUSE Atrial Rate 62 BPM GEMUSE QRS Duration 94 ms GEMUSE Q-T Interval 406 ms GEMUSE QTc 459 ms GEMUSE R [place] 33 degrees GEMUSE T [place] -121 degrees GEMUSE ECG Interpretation Electronic atrial pacemaker Left ventricular hypertrophy with repolarization abnormality Abnormal ECG When compared with ECG of 07-JUN-2001 08:34, Electronic atrial pacemaker has replaced Sinus rhythm Vent. rate has increased BY ??28 BPM Inverted T waves have replaced nonspecific T wave abnormality in Inferior leads Confirmed by MD Emeka, Garret ([id number]) on 08/24/2024 9:08:05 AM GEMUSE 08/23/2024 8:07 AM EST 08/24/2024 9:08 AM EST Result [facility] Adilene Lindsey WIRE DRAWING MACHINE TENDER ECG ORDERABLES Edited Result - Final GEMUSE * Annual BMP Blood Test (03/10/2024) Pathologist [facility] Annual BMP Blood Test abstracted Result [facility] Historical Provider HEALTH MAINTENANCE Final Result * Urine Albumin Creatinine Ratio (05/01/2019) Pathologist [facility] Urine Albumin Creatinine Ratio abstracted Result [facility] Historical Provider HEALTH MAINTENANCE Final Result * (ABNORMAL) Hemoglobin A1c (09/22/2018) Pathologist [facility] Hemoglobin A1C 8.2(A) <=6.5 % Blood Venous blood specimen / Unknown Historical Provider LAB BLOOD ORDERABLES Gini l Result * Lipid panel (05/09/2018) LDL/HDL Ratio 3 0 - 4 Triglycerides 65 0 - 150 mg/dL Cholesterol 146 0 - 200 mg/dL HDL 52 >=40 mg/dL LDL Cholesterol 81 0 - 100 mg/dL Blood Venous blood specimen / Unknown Historical Provider LAB BLOOD ORDERABLES Gini l Result from Last 3 Months or Most Recently Relevant to Health Maintenance Insurance MEDICARE [facility] Care Teams Distance Learning Unit Leader Relationship Specialty Start Date End Date Ria Bryant MD [address] [place] [address] PCP - General Internal Medicine 08/23/24
--- OUTSIDE RECORDS SUMMARY | 2024-11-10 08:58 | XMS_ITS | Encounter Summary ---
Author Organization [employer] [place] [address] Care Team Providers Care Loan Broker Name Role Phone Ria Bryant MD Primary Care Provider [phone] Reason for Visit * Reason Onset Date Comments medication 10/17/2024 Encounter Details Date Type Department Care Team (Late st Contact Info) Description 10/17/2024 Telephone [facility] - [facility] [address] [facility] [address] [place] [phone] Garret Hendrickson MD [address] [facility] 154 [place] [address] medication Social History Tobacco Use Types Packs/Day Years Used Date Smoking Tobacco: Never Smokeless Tobacco: Never Alcohol Use Standard Drinks/Week Comments Not Currently 0 (1 standard drink = 0.6 oz pur e alcohol) Sex and Gender Information Value Date Recorded Sex Assigned at Not on file Legal Sex Male 9:43 AM EST Gender Identity Not on file Sexual Orientation Not on file documented as of this encounter Ordered Prescriptions Prescription Sig Dispense Quantity Refills Last Filled Start Date End Date magnesium oxide (MAG-OX) 400 mg magnesium tablet Take 1 tablet (400 mg total) by mouth 2 (two) times a day. 180 tablet 1 10/18/2024 documented in this encounter Progress Notes * Adrienne Villanueva [place] - 10/18/2024 8:59 AM EST Rx magnesium renewed. DANIEL * Tania Rehan - 10/17/2024 4:30 PM EST The patients daughter Kendra called requesting a refill for magnesium 400 mg, 1 tablet twice a day, 90 day supply, pharmacy confirmed. documented in this encounter Plan of Treatment Upcoming Encounters Date Type Department Care Team (Late st Contact Info) Description 12/14/2024 9:00 AM EDT Ancillary Procedure [facility] - [facility] [address] [facility] [address] [place] [phone] documented as of this encounter Visit Diagnoses Not on filedocumented in this encounter Discontinued Medications Medication Sig Discontinue Reason Start Date End Da te magnesium oxide (MAG-OX) 400 mg (241.3 elemental magnesium) tablet Take 1 tablet (400 mg total) by mouth 2 (two) times a day. Entered in Error 03/15/2024 10/18/2024 documented as of this encounter Care Teams Loan Broker Relationship Specialty Start Date End Date Ria Bryant MD [address] [place] [address] PCP - General Internal Medicine 08/23/24 documented as of this encounter
[2024-11-10 08:59] LABS: Prothrombin Time Whole Bld POC 31.6 sec (11.1-13.5); ~PT, ~INR - Anti Coag Clinic 2.6 (0.9-1.1)
--- OUTSIDE RECORDS SUMMARY | 2024-11-10 08:59 | XMS_ITS | Patient Health Record ---
Author Organization [facility] Address [address] [place] [address] Care Team Providers Care Manager Country Name Role Phone Annette GUNDERSON, Ria Primary Care Provider Rainer Schaffer Jr Unavailable RESULTS Component Value Reference Range Notes Prothrombin Time INR Reviewed date:03/22/2024 08:14:46 AM Interpretation: Performing Lab:[facility], [address] [place] [phone] Notes/Report: Prothrombin Time 17.3 11.1-13.3 [employer] [...] Pathology Reviewed date:03/30/2024 11:36:05 AM Interpretation: Performing Lab:[facility], [address] [place] [phone] Notes/Report: REASON FOR REFERRAL No Information SOCIAL HISTORY Sex Assigned At : Social History Observation Description Sex Assigned At Unknown PROBLEMS Problem Type ICD Code Onset Dates Problem Status W/U Status Risk SNOMED Code Notes Problem Iron deficiency anemia (D50.9) Active confirmed Iron deficiency anemia (58508082) Problem Gastritis (K29.70) Active confirmed Gastritis (6513573) Encounters Encounter Location Date Provider Diagnosis [facility] Inpatient [address] [place] [phone] 03/22/2024 Rainer Roa Jr [facility] [address] [place] [address] 03/22/2024 Rainer Roa Jr [facility] [address] [place] [address] 03/30/2024 Rainer Roa Jr PLAN OF TREATMENT No Information Insurance Providers Payer Name Payer Address Payer Phone Subscriber Number Group Number Insured Name Patient Relationship to Insured Coverage Start Date Coverage End Date MEDICARE [place] [address] [place] [address] [id number] SOREN BECKHAM Self - patient is the insured MEDEX ATTN CLAIMS [address] [place] [address] [id number] SOREN BECKHAM Self - patient is the insured
--- OUTSIDE RECORDS SUMMARY | 2024-11-10 08:59 | XMS_ITS ---
Author Organization [facility] Address [address] [place] [address] Care Team Providers Care Materials Branch Chief Name Role Phone Ria Bryant MD Primary Care Provider Rainer Schaffer Jr Unavailable REASON FOR VISIT GI BLEED Encounters Encounter Location Date Provider Diagnosis [facility] Inpatient [address] [place], [place] [phone] 03/22/2024 Rainer Roa Jr PLAN OF TREATMENT No Information
--- OUTSIDE RECORDS SUMMARY | 2024-11-10 08:59 | XMS_ITS ---
Author Organization [facility] Address [address] [place] [address] Care Team Providers Care Patient Care Nursing Assistant Name Role Phone Ria Bryant MD Primary Care Provider Rainer Schaffer Jr Unavailable Encounters Encounter Location Date Provider Diagnosis [facility] [address] [place] [address] 03/22/2024 Rainer Roa Jr PLAN OF TREATMENT No Information
--- OUTSIDE RECORDS SUMMARY | 2024-11-10 08:59 | XMS_ITS ---
Author Organization [facility] Address [address] [place] [address] Care Team Providers Care Motor Vehicle Parts Interpreter Name Role Phone Ria Bryant MD Primary Care Provider Rainer Schaffer Jr Unavailable [phone] REASON FOR VISIT pathology Encounters Encounter Location Date Provider Diagnosis [facility] [address] [place] [phone] 03/30/2024 Rainer Roa Jr PLAN OF TREATMENT No Information
--- OUTSIDE RECORDS SUMMARY | 2024-11-10 09:00 | XMS_ITS | Continuity of Care Document ---
Author Organization [facility] Address [address] [place] [address]- Care Team Providers Care Account Associate Name Role Phone Troy GUNDERSON, [facility] Primary Care Physician Encounter [facility] Date(s): 07/07/24 - 11/04/24 [facility] [address] [place] [address]- Attending Physician: Ria Bryant MD Encounter Type: Pre Office Visit Allergies, Adverse Reactions, Alerts No [...] virus vaccine, inactivated 06/19/05 Casey rded SARS-CoV-2(COVID-19)mRNA-LNP vac([id number]) 06/04/24 Recorded tetanus-diphtheria toxoids (Td) 3 04/29/23 Given tetanus-diphtheria toxoids (Td) 09/02/10 Recorded [id number] 12y+ bivalent booster vax 07/29/22 Given SARS-CoV-2 [...] Pneumococcal Vaccine (oldterm) 11/29/07 Given 1Result Comment: [facility] [id number] 2Result Comment: Patient tollerated well 3Result Comment: [facility] [id number] Medications Ascriptin Enteric 81 mg, By Mouth, Daily, Refills 0, Tot. Refills 0, 11/16/07 6:08:35 PM EST Start Date: 11/16/07 Status: Ordered Repeat number: 1 atorvastatin 40 mg oral tablet 1 tablet, By Mouth, Daily, # 90 tablet, 6 Refills, Maintenance, 09/29/24 9:21:00 AM EST, [facility], 164.03, cm, 09/29/24 8:39:00 EST, Height, 64.6, kg, 09/29/24 8:35:00 EST, Dry Weight Start Date: 09/29/24 Status: Ordered Quantity: 90.0 Unit: tablet Repeat number: 7 carvedilol 12.5 mg oral tablet 12.5 mg, 1, tablet, By Mouth, 2 times a day, # 60 tablet, Refills 6, Tot. Refills 6, Maintenance, 09/29/24 9:22:00 AM EST, Route to Pharmacy Electronically, [facility], Partial fill upon patient request if the prescription is for a schedule II opioid drug., 164.03, cm, 09/29/24 8:39:00 EST, Height, 64.6, kg, 09/29/24 8:35:00 EST, Dry Weight Start Date: 09/29/24 Status: Ordered Quantity: 60.0 Unit: tablet Repeat number: 7 glipiZIDE 10 mg oral tablet 1 tablet = 10 mg, By Mouth, 2 times a day, # 180 tablet, 6 Refills, Maintenance, 09/29/24 9:35:00 AMEST, Tablet, [facility], Partial fill upon patient request [...] 09/29/24 9:21:00 AMEST, Route to Pharmacy Electronically, [facility], 164.03, cm, 09/29/24 8:39:00EST, Height, [...] 02/07/24 Status: Ordered Repeat number: 1 metFORMIN 500 mg oral tablet 2 tablet, By Mouth, 2 times a day, # 360 tablet, 6 Refills, Maintenance, 09/29/24 9:22:00 AM EST, [facility], 164.03, cm, 09/29/24 8:39:00 EST, Height, 64.6, kg, 09/29/24 8:35:00 EST, Dry Weight Start Date: 09/29/24 Status: Ordered Quantity: 360.0 Unit: tablet Repeat number: 7 Nitrostat 0.4 mg sublingual tablet 1 tablet = 0.4 mg, Sublingual, Every 5 minutes, PRN Chest Pain, # 100 tablet, 0 Refills, Maintenance, 11/03/19 4:02:00 PM EST, [facility]t, [id number], 166, cm, 11/03/19 15:28:00 EST, Height, 65.3, kg, 11/01/19 22:48:00 EST, Dry Weight Start Date: 11/03/19 Stop Date: 12/03/19 Status: Ordered Quantity: 100.0 Unit: tablet Repeat number: 1 One Touch Ultra Test Strips See Instructions, # 200 each, Refills 3, Tot. Refills 3, Maintenance, use with one touch ultra2 meter check sugars 1-2 times daily dx- E11.65 duration - 90 days/ 1refill, 11/01/24 2:23:00 PM EST, Supply, 164.03, cm, 11/01/24 13:32:00 EST, Height, 64.6, kg, 09/29/24 8:35:00 EST, Dry Weight Start Date: 11/01/24 Status: Ordered Quantity: 200.0 Unit: each Repeat number: 4 Problem List Condition Confirmation Course Effective Dates Status H ealth Status Informant Atrial fibrillation Confirmed Active Diabetes mellitus Confirmed Active Uncontrolled diabetes mellitus with hyperglycemia Confirmed Active Dizziness Confirmed Active Ischemic cardiomyopathy Confirmed Active Hyperlipidemia Confirmed Active Hypertension Confirmed Active Umbilical hernia Confirmed Active Social History Social History Type Response Smoking Status Never smoker entered on: 02/12/16 Sex Sex Representation Male (finding) Patient Care team information Care Team Personnel Name: Barbi Rios RN Position: [facility] RN Member Role: Primary Care Nurse Name: Shantal Garcia RN Position: S RN Member Role: Primary Care Nurse Name: Lisha Cardenas RN Position: S RN Member Role: Primary Care Nurse Name: Aster Ellison RN Position: S RN Member Role: Primary Care Nurse Name: Yesy Hylton RN Position: S RN Member Role: Primary Care Nurse Name: Yessenia Simmons MD Position: S Physician - Primary Care Member Role: PCP Address: [address] [place] [address] [facility] [address] Telecom: Name: Kati Gordon RN Position: [facility] RN Member Role: Primary Care Nurse Care Team Related Persons Name: MARK WELLINGTON Name: FANY CASE Insurance Providers Guarantor name: SOREN BECKHAM [employer] Plan Information #: 2 Payer: MEDEX Member Number: [id number] Policy Number: NA Group Number: NA Health Plan Information #: 1 Payer: MEDICARE PART B OUTPT Member Number: [id number] Policy Number: NA Group Number: NA
== END 2024-11-10 08:50 | disposition home or self-care (01) ==
LOC: HO.ACS 08:41
PROVIDERS: PCP Internal Medicine; Visit Provider Internal Medicine
DX: Z79.01 Long term (current) use of anticoagulants (principal)

== ENCOUNTER → 2024-11-10 08:41 | Outpatient (BNVA) | payer MEDICARE, SELFPAY | PROVIDERS: PCP Internal Medicine; Visit Provider Internal Medicine | DX: I48.0 Paroxysmal atrial fibrillation (principal); Z79.01 Long term (current) use of anticoagulants; Z51.81 Encounter for therapeutic drug level monitoring | CPT/HCPCS: 85610; 99211 ==

== ENCOUNTER 2024-12-08 09:03 | Outpatient (AMB) | payer MEDICARE, SELFPAY ==
--- NOTE | 2024-12-08 09:16 | MHC.OFFVISCO ---
Intake Intake Visit Reasons: Anticoagulation Allergies isosorbide Adverse Reaction (Unknown, Verified 12/08/24 09:05) dizziness Medication List - Last Reconciled 12/08/24 by Sherie Ramirez RN atorvastatin 40 mg PO DAILY carvedilol 12.5 mg PO BID furosemide 20 mg PO DAILY glipizide 10 mg PO BID lisinopril 10 mg PO DAILY magnesium oxide 400 mg PO BID metformin 1,000 mg PO BID nitroglycerin 0.4 mg sublingual DAILY omeprazole 20 mg PO DAILY@0630 30 days sacubitril-valsartan 24-26 mg (Entresto) 1 tab PO BID warfarin 5 mg See Protocol PO DAILY@1800 Nursing Note INR 3.5?out of therapeutic range of 2-3 Pt not sure why the INR is high. States everything is good and no changes. He feels well. Denies pain. Medications and supplements reviewed Patient status: well Medications or supplements: no changes Diet: usual diet for pt Denies any signs and symptoms of bleeding or clotting or unusual bruising Bleeding, bruising, clotting discussed Nutritional guidance given: to have a serving of greens today but pt states he doesn't eat greens so dose lowered. Dose: pt took today's dose already so will decrease tomorrow's dose to 2.5mg (7.5mg) then to resume usual dose of 7.5mg X 6 days and 5mg X 1 day F/U INR Date : 2 weeks?? Patient verbalizing understanding of instructions given. Anti-Coag Initial Assessment Social Hx Patient Tobacco Use Status: Never used Tobacco alcohol intake: former Alcohol intake frequency: does not drink Cardiovascular Hx: HTN, Angina, [place], Arrhythmias, Cardiomyopathy and Other Endocrine Hx: Diabetes Blood Disorder Hx: Hyperlipidemia Hx: Kidney Disease Cancer HX: No Psych. Illness/Depression: Yes Coding Level of Care Code Est Patient Level 1 Diagnoses Current use of anticoagulant therapy Z79.01 Results AMB INR Fingerstick AMB INR Fingerstick 3.5 Last Edit by Sherie Ramirez RN on 12/08/24 09:11 interface delay Assessment & Plan Assessment & Plan (1) Current use of anticoagulant therapy: Code(s): Z79.01 - halfway (current) use of anticoagulants
[2024-12-08 09:18] LABS: Prothrombin Time Whole Bld POC 41.4 sec (11.1-13.5); ~PT, ~INR - Anti Coag Clinic 3.5 (0.9-1.1)
--- OUTSIDE RECORDS SUMMARY | 2024-12-08 09:37 | XMS_ITS | Encounter Summary ---
Author Organization [facility] Address [address] [place] [address] Care Team Providers Care Can Runner Name Role Phone Ria Bryant MD Primary Care Provider [phone] Reason for Visit * Reason Onset Date Comments Med Refill 11/14/2024 Carvedilol Encounter Details Date Type Department Care Team ([facility] st Contact Info) Description 11/14/2024 Telephone [facility] - [facility] [address] [facility] [address] [place] [address] Garret Hendrickson MD [address] [facility] [address] [place] [address] Med Refill (Carvedilol ) Social History Tobacco Use Types Packs/Day Years [...] Refills Last Filled Start Date End Date carvediloL (COREG) 12.5 mg tablet Take 1 tablet (12.5 mg total) by mouth 2 (two) times a day with meals. 180 tablet 2 11/14/2024 documented in this encounter Progress Notes * Nicky Spence RN - 11/14/2024 3:28 PM EST DANIEL 08/23/24 Carvedilol refills sent * Haley Mccrary - 11/14/2024 3:05 PM EST Pt`s daughter called for a refill on Carvedilol 12.5 mg take 1 tablet by mouth 2 times daily sent to [facility] documented in this encounter Plan of Treatment Upcoming Encounters Date Type Department Care Team (Late st Contact Info) Description 12/14/2024 9:00 AM EDT Ancillary Procedure [facility] - [facility] [address] [facility] [address] [place] [id number] documented as of this encounter Visit Diagnoses Not on filedocumented in this encounter Discontinued Medications Medication Sig Discontinue Reason Start Date End Da te carvediloL (COREG) 12.5 mg tablet Take 1 Tablet by mouth 2 times daily (with meals). Reorder 03/13/2024 11/14/2024 documented as of this encounter Care Teams Can Runner Relationship Specialty Start Date End Date Ria Bryant MD [address] [address] PCP - General Internal Medicine 08/23/24 documented as of this encounter
--- OUTSIDE RECORDS SUMMARY | 2024-12-08 09:37 | XMS_ITS | Clinical Summary ---
Author Organization [address] [place] [address] Address [address] [place] [address] Phone Care Team Providers Care Car Hiker Name Role Phone Ria Bryant MD Primary Care Provider [phone] Allergies No known active allergies Medications lancets [...] 1 (one) time each day. 9 Active furosemide (LASIX) 20 mg tablet Take [...] Do not crush, chew, or split. Active lisinopriL (PRINIVIL,ZEST RIL) 10 mg tablet Take 1 tablet (10 mg total) by mouth 1 (one) time each day. Active magnesium oxide (MAG-OX) 400 mg magnesium tablet Take 1 tablet (400 mg total) by mouth 2 (two) times a day. 180 tablet 1 5 Active carvediloL (COREG) 12.5 mg tablet Take 1 tablet (12.5 mg total) by mouth 2 (two) times a day with meals. 180 tablet 2 5 Active warfarin (COUMADIN) 5 mg tablet Take 1-2 tablets daily as prescribed by [place] [facility]. 180 tablet 3 5 Active carvediloL (COREG) 12.5 mg tablet Take 1 Tablet by mouth 2 times daily (with meals). 4 11/14/19 25 Discontinu ed(Reorder ) warfarin (COUMADIN) 5 mg tablet Take 1 tablet (5 mg total) by mouth 1 (one) time each day with dinner. 90 tablet 2 4 11/15/19 25 Discontinu ed(Reorder ) Active Problems Problem Noted Date Diagnosed Date [...] 08/22/2006 Coronary artery disease 06/09/2006 Overview (06/27/2024): AR 1998 stent LAD 2004 EF 45% Last [...] Encounters Date Type Department Care Team Description 11/14/2024 Telephone [facility] - [address] [place] [address] Garret Hendrickson MD Med Refill (Carvedilol ) 11/14/2024 Telephone [facility] - [address] [place] [address] Garret Hendrickson MD Med Refill 10/17/2024 Telephone [facility] - [address] [place] [address] Garret Hendrickson MD medication from Last 3 Months Immunizations Name Administration [...] Coronary atherosclerosis of unspecified type of vessel, [place] or graft 06/09/2006 DX:Coronary atherosclerosis of unspecified type of vessel, [place] or graft; COMMENT: AR 1998 Alcohol abuse, unspecified 08/19/2006 DX:Al cohol [...] Description 12/14/2024 9:00 AM EDT Ancillary Procedure [facility] - [address] [facility] [address] [place] [address] Health Maintenance Due Date Last [...] this topic Medical Devices Implanted Type Area Superintendent Overhead Distribution Device Identifier Shelf Expiration Date Model / Serial / Lot Medt-Card Oumou Gutierrez Dr [id number] Implanted:08/20 (Quantity not on file) Cardiac ICD MEDTRONIC - CARDIAC RHYTH-CRDM OUMOU Gutierrez DR [id number] / [id number] / Procedures Procedure Name Priority Date/Time Associated Diagnosis Comments ANNUAL BMP BLOOD TEST Routine 03/10/2024 URINE ALBUMIN CREATININE RATIO Routine 05/01/2019 HEMOGLOBIN A1C Routine 09/22/2018 LIPID PANEL Routine 05/09/2018 from Last 3 Months or Most Recently Relevant to Health Maintenance Results * Annual BMP Blood Test (03/10/2024) Pathologist [facility] Annual BMP Blood Test abstracted Result [facility] Provider HEALTH MAINTENANCE Final Result * Urine Albumin Creatinine Ratio (05/01/2019) Pathologist [facility] Urine Albumin Creatinine Ratio abstracted Result [facility] Provider HEALTH MAINTENANCE Final Result * (ABNORMAL) Hemoglobin A1c (09/22/2018) Pathologist [facility] Hemoglobin A1C 8.2(A) <=6.5 % Blood Venous blood specimen / Unknown Result [facility] Provider LAB BLOOD ORDERABLES Gini l Result * Lipid panel (05/09/2018) LDL/HDL Ratio 3 0 - 4 Triglycerides 65 0 - 150 mg/dL Cholesterol 146 0 - 200 mg/dL HDL 52 >=40 mg/dL LDL Cholesterol 81 0 - 100 mg/dL Blood Venous blood specimen / Unknown Result [facility] Provider LAB BLOOD ORDERABLES Gini l Result from Last 3 Months or Most Recently Relevant to Health Maintenance Insurance MEDICARE [facility] Care Teams Car Hiker Relationship Specialty Start Date End Date Ria Bryant MD [address] [place] [address] PCP - General Internal Medicine 08/23/24
--- OUTSIDE RECORDS SUMMARY | 2024-12-08 09:37 | XMS_ITS | Encounter Summary ---
Author Organization [facility] Address [address] [place] [address] Care Team Providers Care Ink Grinder Name Role Phone Ria Bryant MD Primary Care Provider [phone] Reason for Visit * Reason Onset Date Comments Med Refill 11/14/2024 Encounter Details Date Type Department Care Team (Late st Contact Info) Description 11/14/2024 Telephone [facility] - [facility] [address] [facility] [address] [place] [address] Garret Hendrickson MD [address] [facility] [address] [place] [address] Med Refill Social History Tobacco Use Types Packs/Day Years [...] Refills Last Filled Start Date End Date warfarin (COUMADIN) 5 mg tablet Take 1-2 tablets daily as prescribed by [place] [facility]. 180 tablet 3 11/15/2024 documented in this encounter Progress Notes * Honorio Rowley MA - 11/15/2024 8:23 AM EST [facility] 5 mg 1 day and 7.5 mg the rest. I will send in refill. * Yolande Mauricio - 11/14/2024 12:00 PM EST Pharmacy requesting refill for Warfarin COUMADIN 5 mg, 90 day supply. Please send to [facility]. documented in this encounter Plan of Treatment Upcoming Encounters Date Type Department Care Team (Late st Contact Info) Description 12/14/2024 9:00 AM EDT Ancillary Procedure [facility] - [facility] [address] [facility] [address] [place] [address] documented as of this encounter Visit Diagnoses Not on filedocumented in this encounter Discontinued Medications Medication Sig Discontinue Reason Start Date End Da te warfarin (COUMADIN) 5 mg tablet Take 1 tablet (5 mg total) by mouth 1 (one) time each day with dinner. Reorder 08/09/2024 11/15/2024 documented as of this encounter Care Teams Ink Grinder Relationship Specialty Start Date End Date Ria Bryant MD [address] [address] PCP - General Internal Medicine 08/23/24 documented as of this encounter
--- OUTSIDE RECORDS SUMMARY | 2024-12-08 09:37 | XMS_ITS | Continuity of Care Document ---
Author Organization [facility] Address [address] [place] [address]- Care Team Providers Care Desizing Machine Operator Head End Name Role Phone Troy GUNDERSON, [facility] Primary Care Physician [phone] Encounter [facility] Date(s): 10/13/24 - 11/12/24 [facility] [address] [place], [place] [address] Encounter Type: Triage Allergies, Adverse Reactions, Alerts No Known Allergies [...] virus vaccine, inactivated 06/19/05 Casey rded SARS-CoV-2(COVID-19)mRNA-LNP vac(snd350) 06/04/24 Recorded tetanus-diphtheria toxoids (Td) 3 04/29/23 Given tetanus-diphtheria toxoids (Td) 09/02/10 Recorded [id number] 12y+ bivalent booster vax 07/29/22 Given SARS-CoV-2 [...] Given 1Result Comment: [facility] 24915-482-62 2Result Comment: Patient tollerated well 3Result Comment: [facility] [address]-1 Medications Ascriptin Enteric 81 mg, By Mouth, Daily, Refills 0, Tot. Refills 0, 11/16/07 6:08:35 PM EST Start Date: 11/16/07 Status: Ordered Repeat number: 1 atorvastatin 40 mg oral tablet 1 tablet, By Mouth, Daily, # 90 tablet, 6 Refills, Maintenance, 09/29/24 9:21:00 AM EST, [facility], 164.03, cm, 09/29/24 8:39:00 EST, Height, 64.6, kg, 09/29/24 8:35:00 EST, Dry Weight Start Date: 09/29/24 Status: Ordered Quantity: 90.0 Unit: tablet Repeat number: 7 carvedilol 12.5 mg oral tablet 12.5 mg, 1, tablet, By Mouth, 2 times a day, # 60 tablet, Refills 6, Tot. Refills 6, Maintenance, 09/29/24 9:22:00 AM EST, Route to Pharmacy Electronically, [facility], Partial fill upon patient [...] 6 Refills, Maintenance, 09/29/24 9:35:00 AMEST, Tablet, [facility], Partial fill upon patient [...] 09/29/24 9:21:00 AMEST, Route to Pharmacy Electronically, [facility], 164.03, cm, 09/29/24 8:39:00EST, Height, 64.6, [...] Repeat number: 1 metFORMIN 500 mg oral tablet, extended release 2 tablet = 1,000 mg, By Mouth, 2 times a day, Take with meals, # 360 tablet, 3 Refills, Maintenance, 11/08/24 3:38:00 PM EST, [facility], Partial fill upon patient request if the prescription is for a schedule II opioid drug., 164.03, cm, 11/01/24 13:32:00 EST, Height, 64.6, kg, 09/29/24 8:35:00 EST, Dry Weight Start Date: 11/08/24 Status: Ordered Quantity: 360.0 Unit: tablet Repeat number: 4 Nitrostat 0.4 mg sublingual tablet 1 tablet = 0.4 mg, Sublingual, Every 5 minutes, PRN Chest Pain, # 100 tablet, 0 Refills, Maintenance, 11/03/19 4:02:00 PM EST, [facility]t, [facility], 166, cm, 11/03/19 15:28:00 EST, [...] Team Personnel Name: Barbi Rios RN Position: [facility] RN Member Role: Primary Care Nurse [...] - Primary Care Member Role: PCP Address: [address] [place] [address] Adult & Pediatric Medicine [address] Telecom: Name: Kati Gordon RN Position: S RN Member Role: Primary Care Nurse Care Team Related Persons Name: MARK WELLINGTON Name: FANY CASE Insurance Providers Guarantor name: SOREN BECKHAM [employer] Plan Information #: 1 Payer: MEDICARE PART B OUTPT Member Number: NA Policy Number: NA Group Number: NA Health Plan Information #: 2 Payer: MEDEX Member Number: NA Policy Number: NA Group Number: NA
== END 2024-12-08 09:20 | disposition home or self-care (01) ==
LOC: HO.ACS 09:03
PROVIDERS: PCP Internal Medicine; Visit Provider Internal Medicine Medical Oncology
DX: Z79.01 Long term (current) use of anticoagulants (principal)

== ENCOUNTER → 2024-12-08 09:03 | Outpatient (BNVA) | payer MEDICARE, SELFPAY | PROVIDERS: PCP Internal Medicine; Visit Provider Internal Medicine Medical Oncology | DX: I48.0 Paroxysmal atrial fibrillation (principal); Z79.01 Long term (current) use of anticoagulants; Z51.81 Encounter for therapeutic drug level monitoring | CPT/HCPCS: 85610; 99211 ==

== ENCOUNTER 2024-12-22 08:38 | Outpatient (AMB) | payer MEDICARE, SELFPAY ==
--- NOTE | 2024-12-22 09:01 | MHC.OFFVISCO ---
Intake Intake Visit Reasons: Anticoagulation Allergies isosorbide Adverse Reaction (Unknown, Verified 12/22/24 08:57) dizziness Medication List - Last Reconciled 12/22/24 by Sherie Ramirez RN atorvastatin 40 mg PO DAILY carvedilol 12.5 mg PO BID furosemide 20 mg PO DAILY glipizide 10 mg PO BID lisinopril 10 mg PO DAILY magnesium oxide 400 mg PO BID metformin 1,000 mg PO BID nitroglycerin 0.4 mg sublingual DAILY omeprazole 20 mg PO DAILY@0630 30 days sacubitril-valsartan 24-26 mg (Entresto) 1 tab PO BID warfarin 5 mg See Protocol PO DAILY@1800 Nursing Note INR: 3.1?out of therapeutic range 2-3 3.5 on last visit 12/08/24 Pt states appetite is good and he feels well. No changes. Medications and supplements reviewed Patient status: well Medications or supplements: no changes Diet: usual diet for pt Denies any signs and symptoms of bleeding or clotting or unusual bruising Bleeding, bruising, clotting discussed Nutritional guidance given: to have a serving of greens today but pt states he doesn't eat greens. Dose: Pt already took today's dose so will decrease tomorrow's dose to 5mg (7.5mg). Then 7.5mg X 6 days and5mg X 1 day (Wed). F/U INR Date: 3 weeks?? Patient verbalizing understanding of instructions given. Anti-Coag Initial Assessment Social Hx Patient Tobacco Use Status: Never used Tobacco alcohol intake: former Alcohol intake frequency: does not drink Cardiovascular Hx: HTN, Angina, [place], Arrhythmias, Cardiomyopathy and Other Endocrine Hx: Diabetes Blood Disorder Hx: Hyperlipidemia Hx: Kidney Disease Cancer HX: No Psych. Illness/Depression: Yes Coding Level of Care Code Est Patient Level 1 Diagnoses Current use of anticoagulant therapy Z79.01 Results AMB INR Fingerstick AMB INR Fingerstick 3.1 Last Edit by Sherie Ramirez RN on 12/22/24 09:02 interface delay Assessment & Plan Assessment & Plan (1) Current use of anticoagulant therapy: Code(s): Z79.01 - terminologist (current) use of anticoagulants
[2024-12-22 09:02] LABS: Prothrombin Time Whole Bld POC 37.6 sec (11.1-13.5); ~PT, ~INR - Anti Coag Clinic 3.1 (0.9-1.1)
--- OUTSIDE RECORDS SUMMARY | 2024-12-22 09:07 | XMS_ITS ---
Author Organization [facility] Address [address] [place] [address] Care Team Providers Care Chemical Project Engineer Name Role Phone Annette GUNDERSON, Ria Primary Care Provider Boyd Roa Jr, Rainer Aaron [phone] Encounters Encounter Location Date Provider Diagnosis [facility] [address] [place] [address] 03/22/2024 Rainer Roa Jr Plan Of Treatment No Information Progress Notes * BECKHAMKEVIN BUTTSADRIENOB: [birth year] (83 yo M)Acc No.[id number]:03/22/2024 Patient:?SOREN BECKHAM :1940???Age:83 Y???Sex:Male Address:[address] [place] [address], [place], [address] * true * Date:? Generated for Lisa tyler/Aliya/eTransmitting on:?12/22/2024 09:06 AM EDT
--- OUTSIDE RECORDS SUMMARY | 2024-12-22 09:07 | XMS_ITS | Patient Health Record ---
Author Organization [facility] Address [address] [place] [address] Care Team Providers Care Internal Medicine Physician Name Role Phone Annette GUNDERSON, Minesh Primary Care Provider Rainer Schaffer Jr Results Component Value Reference Range Notes Prothrombin Time INR Reviewed date:03/22/2024 08:14:46 AM Interpretation: Performing Lab:[facility], [address] [place] [phone] Notes/Report: Prothrombin Time 17.3 11.1-13.3 SEC INTERNATIONAL [...] Pathology Reviewed date:03/30/2024 11:36:05 AM Interpretation: Performing Lab:[facility], [address] [place] [phone] Notes/Report: --- Name: Krishna Beckham Age/Sex: 83/M : 1940 Unit#: [id number] Attend Dr: Christin Ortiz Re03/20/24 Status : DIS IN Location: [facility] 469-1 Disch: 03/23/24 --- SPEC : [id number] RECD : 03/24/24 STATUS: JAMAL LEWIS NUM: [id number] ROSENDA: 03/22/24-[address]: Rainer Roa MD ENTERED: 03/24/24 45 SP TYPE: Surgical OTHR DR: Christin Ortiz SMITHA S MD ORDERED: HE Stain/3, Gross Micro L4, IHC, Special st. 2, H. pylori, AB/PAS Addendum Addendum 1 Entered: 03/28/24 Immunostain for H pylori is nonreactive with non-specific background staining; no change is made to the diagnosis. 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 Comment: Immunostain for H. pylori is pending; addendum to follow. Clinical History Pre-Op Dx: GI bleed Post-Op Dx: Gastritis Microscopic Description Microscopic sections reviewed. AB/PAS is positive for intestinal metaplasia. Control stains appropriately. Material Received Antral bx's Gross Description Received in formalin are 2 white 1 and 3 mm soft tissue fragments, totally submitted in cassette A1. (DTL) Excision time/formal in time: 14:00 on 03/22/2024; cold ischemic time: 0 minutes; total time in formalin: 105-115 hours. Special studies orde red and performed: Immunostain for H. pylori on A1; AB/PAS stains on A1. CONTINUED ON NEXT PAGE --- Name: Krishna Beckham homer Age/Sex: 83/M : 1940 Unit#: [id number] Attend Dr: Christin Ortiz Re03/20/24 Status : DIS IN Location: [facility] 469-1 Disch: 03/23/24 --- SPEC : [id number] RECD : 03/24/2436 STATUS: JAMAL RECintia NUM: [id number] ROSENDA: 03/22/24-[address]: Rainer Roa MD ENTERED: 03/24/24 45 SP TYPE: Surgical OTHR DR: Christin Ortiz SMITHA S MD ORDERED: HE Stain/3, Gross Micro L4, IHC, Special st. 2, H. pylori, AB/PAS Copies To: Christin Ortiz [address] [place] [address] Rainer Roa MD [facility] [address] [place] [address] MINESH WOO MD [address] [place], [place] [phone] --- Signed (signature on file) Sherie Lynn 03/27/24 1332 (signature on file) Gerardo Anderson MD 03/28/24 1039 --- END OF REPORT Reason For Referral No Information Problems Problem Type SNOMED Code ICD Code Onset Dates Problem Status W/U Status Risk Notes Problem Iron deficiency anemia (18812307) Iron deficiency anemia (D50.9) Active confirmed Problem Gastritis (5949872) Gastritis (K29.70) Active confirmed Encounters Encounter Location Date Provider Diagnosis [facility] In[place] [address] [place], [place] [phone] 03/22/2024 Rainer Roa Jr [facility] [address] [place] [phone] 03/22/2024 Rainer Roa Jr [facility] [address] [place] [phone] 03/30/2024 Rainer Roa Jr Plan Of Treatment No Information Insurance Providers Payer Name Payer Address Payer Phone Subscriber Number Group Number Insured Name Patient Relationship to Insured Coverage Start Date Coverage End Date MEDICARE OF [place] [address] [place]ONNIE ESTEVEZ [id number] [id number] SOREN BECKHAM Self - patient is the insured MEDEX ATTN CLAIMS [address] [place] [address] [phone] [id number] SOREN BECKHAM Self - patient is the insured
--- OUTSIDE RECORDS SUMMARY | 2024-12-22 09:07 | XMS_ITS ---
Author Organization [facility] Address [address] [place] [phone] Care Team Providers Care Rigger Helper Name Role Phone Annette GUNDERSON, Ria Primary Care Provider Boyd oRa Jr, Rainer Unavailable REASON FOR VISIT pathology Encounters Encounter Location Date Provider Diagnosis [facility] [address] [place] [phone] 03/30/2024 Rainer Roa Jr Plan Of Treatment No Information Progress Notes * KERMIT BECKHAMODOB: [birth year] (83 yo M)Acc No.[id number]:03/30/2024 Patient:?SOREN BECKHAM :1940???Age:83 Y???Sex:Male Address:[address] [place] [address], [place], [address] * true * Date:? Generated for Lisa tyler/Aliya/eTransmitting on:?12/22/2024 09:07 AM EDT
--- OUTSIDE RECORDS SUMMARY | 2024-12-22 09:07 | XMS_ITS ---
Author Organization [facility] Address [address] [place] [address] Care Team Providers Care Clinic Business Manager Name Role Phone Ria Bryant MD Primary Care Provider Rainer Schaffer Jr Unavailable REASON FOR VISIT GI BLEED Encounters Encounter Location Date Provider Diagnosis [facility] [place] In[place] [address] [place], [place] [phone] 03/22/2024 Rainer Roa Jr Plan Of Treatment No Information Progress Notes * KERMIT BECKHAMODOB: [birth year] (84 yo M)Acc No.[id number]:03/22/2024 EGD and COL/MAC Patient:?SOREN BECKHAM Provider:?Rainer Roa MD :1940???Age:83 Y???Sex:Male Lizandro e:03/22/2024 Address:[address] [place], [place] [phone] Pcp:Ria Bryant MD Subjective: * Chief Complaints: * ???1. GI BLEED. * Medical History:? Objective: * Vitals:? Assessment: Plan: * Treatment: * * The named appointment provid er may or may not be the originator of this progress note, and it is not deemed complete until electronically signed by the appointment provider. Sign off status: Pending * Provider:?Rainer Roa MD Date:?0 03/22/2024 Generated for Lisa tyler/Aliya/eTransmitting on:?12/22/2024 09:07 AM EDT
--- OUTSIDE RECORDS SUMMARY | 2024-12-22 09:07 | XMS_ITS | Clinical Summary ---
Author Organization [address] [place] [address] Address [address] [place] [address] Phone Care Team Providers Care Python Architect Name Role Phone Ria Bryant MD Primary Care Provider [phone] Allergies No known active allergies Medications lancets [...] not crush, chew, or split. Active lisinopriL (PRINIVIL,ZESTR IL) 10 mg tablet [...] Take 1-2 tablets daily as prescribed by [facility]. 180 tablet 3 5 Active Active Problems Problem Noted Date Diagnosed Date [...] 08/22/2006 Coronary artery disease 06/09/2006 Overview (06/27/2024): NC 1998 stent LAD 2004 EF 45% Last [...] Encounters Date Type Department Care Team Description 12/14/2024 9:00 AM EDT Ancillary Procedure [facility] [address] [place] [address] Encounter for adjustment or management of cardiac device 12/11/2024 11:20 PM EDT Ancillary Procedure [facility] [address] [place] [address] 11/14/2024 Telephone [facility] [address] [place] [address] Garret Hendrickson MD Med Refill (Carvedilol ) 11/14/2024 Telephone [facility] - [address] [place] [address] Garret Hendrickson MD Med Refill 10/17/2024 Telephone [facility] [address] [place] [address] Garret Hendrickson MD medication from Last 3 [...] Coronary atherosclerosis of unspecified type of vessel, pamunkey or graft 06/09/2006 DX:Coronary atherosclerosis of unspecified type of vessel, pamunkey or graft; COMMENT: NC 1999 Alcohol abuse, unspecified 08/19/2006 DX:Al cohol abuse, [...] Care Team (Late st Contact Info) Description 07/17/2025 8:30 AM EDT Ancillary Procedure [facility] - [address] [facility] [address] [place] [address] Health Maintenance Due Date Last Done Comments Diabetes: Annual Foot Exam 1950 Diabetes: Annual Retina Eye Exam 1950 RSV Immunization Adult Patients (1 - 1-dose 75+ series) 2015 Zoster [...] patient's age to complete this topic Hepatitis A Vaccines Aged Out No long er eligible [...] this topic Medical Devices Implanted Type Area Developer Analyst Device Identifier Shelf Expiration Date Model / Serial / Lot Medt-Card Oumou Gutierrez Dr [id number] Implanted:08/20 (Quantity not on file) Cardiac ICD [employer] - CARDIAC RHYTH-CRD OUMOU Gutierrez DR [id number] / [id number] / Procedures Procedure Name Priority Date/Time Associated Diagnosis Comments CARDIAC DEVICE CHECK- IN CLINIC- MURJ Routine 12/14/2024 8:51 AM EDT Encounter for adjustment or management of cardiac device CARDIAC DEVICE CHECK- REMOTE- MURJ Routine 12/11/2024 11:15 PM EDT ANNUAL BMP BLOOD TEST Routine 03/10/2024 URINE ALBUMIN CREATININE RATIO Routine 05/01/2019 HEMOGLOBIN A1C Routine 09/22/2018 LIPID PANEL Routine 05/09/2018 from Last 3 Months or Most Recently Relevant to Health Maintenance Results * CARDIAC DEVICE CHECK- IN CLINIC- MURJ (12/14/2024 8:51 AM EDT) Date Time Interrogation Session [id number] CV DEVICE CHECK Implantable Pulse Generator Developer Analyst MDT CV DEVICE CHECK Implantable Pulse Generator Type ICD CV DEVICE CHECK Implantable Pulse Generator Model Oumou Gutierrez [id number] CV DEVICE CHECK Implantable Pulse Generator Serial Number [id number] CV DEVICE CHECK Implantable Pulse Generator Implant Date 20150829 CV DEVICE CHECK Battery Remaining Longevity 7.0 CV DEVICE CHECK Battery Status Middle of Service CV DEVICE CHECK Loenard Statistic RA Percent Paced 95.50 CV DEVICE CHECK Leonard Statistic RV Percent Paced 2.70 CV DEVICE CHECK Atrial Tachy Statistic AT/AF [place] Percent 0.10 CV DEVICE CHECK Lead Channel Sensing Intrinsic Amplitude 1.100 CV DEVICE CHECK Lead Channel Setting Sensing Sensitivity 0.45 CV DEVICE CHECK Lead Channel Impedance Value 399 CV DEVICE CHECK Lead Channel Pacing Threshold Amplitude 0.500 CV DEVICE CHECK Lead Channel Pacing Threshold Pulse Width 0.4 CV DEVICE CHECK Lead Channel RA Pacing Threshold Date 2024-11-12 CV DEVICE CHECK Lead Channel Setting Pacing Amplitude 1.000 CV DEVICE CHECK Lead Channel Setting Pacing Pulse Width 0.4 CV DEVICE CHECK Lead Channel Sensing Intrinsic Amplitude 8.100 CV DEVICE CHECK Lead Channel Setting Sensing Sensitivity 0.30 CV DEVICE CHECK Lead Channel Impedance Value 399 CV DEVICE CHECK Lead Channel Pacing Threshold Amplitude 0.750 CV DEVICE CHECK Lead Channel Pacing Threshold Pulse Width 0.4 CV DEVICE CHECK Lead Channel RV Pacing Threshold Date 2024-12-14 CV DEVICE CHECK Lead Channel Setting Pacing [...] Maximum Sensor Rate 100 CV DEVICE CHECK RV HV Impedance 55 CV D EVICE CHECK Zone Setting Type Category AT/AF CV DEVICE CHECK Therapies All Rx Off CV DEVICE CHECK Zone Setting Status Monitor CV DEVICE CHECK Zone ID 2 CV DEVICE CHECK Zone Setting Type Category VF CV DEVICE CHECK Therapies ATP During Charging, 35J x 6 CV DEVICE CHECK Zone Setting Status On CV DEVICE CHECK Zone ID 3 CV DEVICE CHECK Zone Setting Type Category FVT CV DEVICE CHECK Therapies All Rx Off CV DEVICE CHECK Zone Setting Status Off CV DEVICE CHECK Zone ID 4 CV DEVICE CHECK Zone Setting Type Category VT CV DEVICE CHECK Therapies All Rx Off CV DEVICE CHECK Zone Setting Status Off CV DEVICE CHECK Zone ID 5 CV DEVICE CHECK Date of Service 2024-12-14 CV DEVICE CHECK Anatomical Region Laterality Modality Device Interroga tion 12/14/2024 Impressions 12/19/2024 9:33 AM EDT Normal In-Office: No Events * Normal Device Function * Alerts or events: None * Battery: MOS, 7 months * Sensing, impedance and thresholds reviewed and tested * Presenting Rhythm: AP-VS 78 bpm * Underlying Rhythm: -VS 40s * Heart Rate Histograms reviewed * Pacing and Detection Parameters were evaluated Narrative Procedure Note Benja Brown MD - 12/20/2024 IMPRESSION: Normal In-Office: No Events * Normal Device Function * Alerts or events: None * Battery: MOS, 7 months * Sensing, impedance and thresholds reviewed and tested * Presenting Rhythm: AP-VS 78 bpm * Underlying Rhythm: -VS 40s * Heart Rate Histograms reviewed * Pacing and Detection Parameters were evaluated us Order Referral Cardiovascular CV IMPLANTABLE CAR DIAC DEVICE PROCEDURES Final Result * Cardiac device check - Remote- MURJ (12/11/2024 11:15 PM EDT) Date Time Interrogation Session [id number] CV DEVICE CHECK Type Interrogation Session Remote CV DEVICE CHECK Implantable Pulse Generator Developer Analyst MDT CV DEVICE CHECK Implantable Pulse Generator Type ICD CV DEVICE CHECK Implantable Pulse Generator Model Evera S [id number] CV DEVICE CHECK Implantable Pulse Generator Serial Number [id number] CV DEVICE CHECK Implantable Pulse Generator Implant Date 20150829 CV DEVICE CHECK Battery Remaining Longevity 7.0 CV DEVICE CHECK Battery Voltage 2.870 CV D EVICE CHECK Battery INSURANCE AUDITOR Trigger 2.727 CV DEVICE CHECK Battery Status Middle of Service CV DEVICE CHECK Capacitor Charge Time 4.274 CV DEVICE CHECK Leonard Statistic RA Percent Paced 96.76 CV DEVICE CHECK Leonard Statistic RV Percent Paced 3.95 CV DEVICE CHECK Atrial Tachy Statistic AT/AF [place] Percent 0.00 CV DEVICE CHECK Lead Channel Sensing Intrinsic Amplitude 1.125 CV DEVICE CHECK Lead Channel Setting Sensing Sensitivity 0.45 CV DEVICE CHECK Lead Channel Impedance Value 399 CV DEVICE CHECK Lead Channel Pacing Threshold Amplitude 0.500 CV DEVICE CHECK Lead Channel Pacing Threshold Pulse Width 0.4 CV DEVICE CHECK Lead Channel RA Pacing Threshold Date 2024-11-12 CV DEVICE CHECK Lead Channel Setting Pacing Amplitude 1.000 CV DEVICE CHECK Lead Channel Setting Pacing Pulse Width 0.4 CV DEVICE CHECK Lead Channel Sensing Intrinsic Amplitude 9.875 CV DEVICE CHECK Lead Channel Setting Sensing Sensitivity 0.30 CV DEVICE CHECK Lead Channel Impedance Value 380 CV DEVICE CHECK Lead Channel Pacing Threshold Amplitude 0.750 CV DEVICE CHECK Lead Channel Pacing Threshold Pulse Width 0.4 CV DEVICE CHECK Lead Channel RV Pacing Threshold Date 2024-11-26 CV DEVICE CHECK Lead Channel Setting Pacing Amplitude 2.000 CV DEVICE CHECK Lead Channel Setting Pacing Pulse Width 0.4 CV DEVICE CHECK Leonard Setting Mode (NBG Code) AAIR<=>DDDR CV DEVICE CHECK Leonard Setting Lower Rate Limit 60 CV DEVICE CHECK Leoanrd Setting AT Mode Switch Rate 171 CV [...] 0 CV DEVICE CHECK RV HV Impedance 56 CV D EVICE CHECK Zone Setting Type [...] 6 CV DEVICE CHECK Date of Service 2024-12-12 CV DEVICE CHECK Anatomical Region Laterality Modality Device Interroga tion 11/27/2024 3:18 AM EDT Impressions 12/11/2024 5:26 PM EDT Normal Remote: No Events * Normal Device Function * Alerts or events: None * Battery: OK, 7 mos * Sensing, impedance and thresholds reviewed * Programmed parameters reviewed * Presenting rhythm reviewed * Heart Rate Histograms reviewed * No significant changes noted Additional Notes: Page opens to report can not be generated but reports are included in packet Narrative Procedure Note Benja Brown MD - 12/11/2024 IMPRESSION: Normal Remote: No Events * Normal Device Function * Alerts or events: None * Battery: OK, 7 mos * Sensing, impedance and thresholds reviewed * Programmed parameters reviewed * Presenting rhythm reviewed * Heart Rate Histograms reviewed * No significant changes noted Additional Notes: Page opens to report can not be generated but reportsare included in packet Benja Brown MD CV IMPLANTABLE CARDIAC DEVICE PROCEDURES Final Result * Annual BMP Blood Test (03/10/2024) Annual BMP Blood Test abstracted Historical Provider HEALTH MAINTENANCE Final Result * HM Urine Albumin Creatinine Ratio (05/01/2019) Urine Albumin Creatinine Ratio abstracted [facility] Provider HEALTH MAINTENANCE Final Result * (ABNORMAL) Hemoglobin A1c (09/22/2018) Hemoglobin A1C 8.2(A) <=6.5 % Blood Venous blood specimen / Unknown Result [facility] Provider LAB BLOOD ORDERABLES Gini l Result * Lipid panel (05/09/2018) LDL/HDL Ratio 3 0 - 4 Triglycerides 65 0 - 150 mg/dL Cholesterol 146 0 - 200 mg/dL HDL 52 >=40 mg/dL LDL Cholesterol 81 0 - 100 mg/dL Blood Venous blood specimen / Unknown Result [facility] Provider LAB BLOOD ORDERABLES Gini l Result from Last 3 Months or Most Recently Relevant to Health Maintenance Insurance [facility]ICARE [facility] Care Teams Python Architect Relationship Specialty Start Date End Date Ria Bryant MD [address] [place] [address] PCP - General Internal Medicine 08/23/24
== END 2024-12-22 09:12 | disposition home or self-care (01) ==
LOC: HO.ACS 08:38
PROVIDERS: PCP Internal Medicine; Visit Provider Internal Medicine Medical Oncology
DX: Z79.01 Long term (current) use of anticoagulants (principal)

== ENCOUNTER → 2024-12-22 08:38 | Outpatient (BNVA) | payer MEDICARE, SELFPAY | PROVIDERS: PCP Internal Medicine; Visit Provider Internal Medicine Medical Oncology | DX: I48.0 Paroxysmal atrial fibrillation (principal); Z51.81 Encounter for therapeutic drug level monitoring; Z79.01 Long term (current) use of anticoagulants | CPT/HCPCS: 85610; 99211 ==

== ENCOUNTER 2025-01-12 08:39 | Outpatient (AMB) | payer MEDICARE, SELFPAY ==
--- OUTSIDE RECORDS SUMMARY | 2025-01-12 08:44 | XMS_ITS | Clinical Summary ---
Author Organization [address] [place] [address] Address [address] [place] [address] Phone Care Team Providers Care Mental Health Consultant Name Role Phone Ria Bryant MD Primary Care Provider [phone] Allergies No known active allergies Medications lancets [...] Take 1-2 tablets daily as prescribed by [facility]. 180 tablet 3 5 Active Active Problems Problem Noted Date Diagnosed Date Atrial fibrillation ([facility] V24, [facility] V28) 0 03/18/2023 Overview (06/27/2024): Last Assessment & Plan: [...] adenoma, left 10/02/2018 DVT (deep venous thrombosis) (CMS/[facility] V24, CMS/H CC V28) 05/20/2018 Overview (06/27/2024): 04/18/2018 per PCP right upper extremity DVT. He was on Lovenox now on Coumadin CKD (chronic kidney disease) stage 1, GFR 90 ml/min or greater 02/15/2015 Nuclear sclerosis 09/14/2011 Overview (06/27/2024): Noted on exam By Dr. Mcqueen on 06/26/2009. Old myocardial infarction 09/14/2011 Overview (06/27/2024): Echo of 08/19/2011 shows akinesis of inferior basal wall and septum. CABG 2008. Cardiomyopathy, alcoholic (CMS/HCC V24, CMS/HCC V28) 07/10/2008 Ventricular tachyarrhythmia (CMS/HCC V24, CMS/HC C V28) 07/10/2008 Overview (06/27/2024): Pacer defibrillator Assessment & Plan (08/23/2024 12:06 PM EST): Will continue to monitor overall burden with remote device.At this time he will continue on his current dose of carvedilol Sinoatrial node dysfunction (CMS/HCC V24, CMS/HC C V28) 07/10/2008 Overview (06/27/2024): No telephonic monitoring - no landline Dr. Brown Revised 2015 Assessment & Plan (08/23/2024 12:06 PM EST): He continues to follow closely with our device clinic. Last remote device download from May 2024 revealed predominantly atrial pacing and normal device function. Hyperlipidemia 08/22/2006 Coronary artery disease 06/09/2006 Overview (06/27/2024): [place] 1998 stent LAD 2004 EF 45% Last [...] Encounters Date Type Department Care Team Description 12/22/2024 7:20 PM EDT Ancillary Procedure [facility] Cardiology [facility] [address] [place] [address] 12/14/2024 9:00 AM EDT Ancillary Procedure [facility] Cardiology [facility] - [address] [place] [address] Encounter for adjustment or management of cardiac device 12/11/2024 11:20 PM EDT Ancillary Procedure [facility] Cardiology [facility] - [address] [place] [address] 11/14/2024 Telephone [facility] - [address] [place] [address] Garret Hendrickson MD Med Refill (Carvedilol ) 11/14/2024 Telephone [facility] - [address] [place] [address] Garret Hendrickson MD Med Refill 10/17/2024 Telephone [facility] - [address] [place] [address] Garret Hendrickson MD medication from Last 3 [...] Coronary atherosclerosis of unspecified type of vessel, [place] or graft 06/09/2006 DX:Coronary atherosclerosis of unspecified type of vessel, tling[place] & [place] or graft; COMMENT: [place] 1998 Alcohol abuse, unspecified 08/19/2006 DX:Al cohol [...] Description 07/17/2025 8:30 AM EDT Ancillary Procedure [facility] [address] [facility] [address] [place] [address] Health Maintenance Due Date Last Done Comments Diabetes: Annual Foot Exam 1950 Diabetes: Annual Retina Eye Exam 1950 Hepatitis A Vaccines (1 of 2 - Risk 2-dose series) 1959 RSV Immunization Adult Patients (1 - 1-dose 75+ series) 2015 Zoster Vaccines (2 of 2) 09/25/2020 07/31/2020 Depression Screening 08/29/2022 Falls Risk Assessment 08/29/2022 Medicare Annual Wellness Visit 08/29/2022 Social Influencers of Health Screening 08/29/2022 Diabetes: Annual Urine Albumin-Creatinine Ratio (uACR) 09/04/2022 05/01/2019 Diabetes: Blood Sugar Control Test (HGBA1C) 09/04/2022 09/22/2018 Cholesterol Screening (Lipid Panel) 05/09/2023 05/09/2018 COVID-19 Vaccine (7 - Moderna risk season) 2024 06/04/2024, 08/30/2021, 01/04/2021, Additional history exists Diabetes: Annual GFR (Glomerular Filtration Rate) 03/10/2025 03/10/2024, 03/10/2024 Hypertension/CHF/CAD Annual BMP Blood Test 03/10/2025 03/10/2024, 03/10/2024 DTaP,Tdap,and Td Vaccines (3 - Td or Tdap) 04/29/2033 04/29/2023, 09/02/2010 Pneumococcal Vaccine: 50+ Years Completed 09/09/2015, 07/18/2014, 11/29/2007, Additional history exists Influenza Vaccine Completed 06/04/2024, [...] age to complete this topic Meningococcal B Vaccine Aged Out No l onger eligible based on patient's age to complete this topic RSV Immunization Patients Under 20 months Aged Out No longer eligible based on patient's age to complete this topic Varicella Vaccines Aged Out No longer eligible based on patient's age to complete this topic Medical Devices Implanted Type Area Nurse Healthcare Manager Device Identifier Shelf Expiration Date Model / Serial / Lot Medt-Card Oumou Gutierrez Dr [id number] Implanted:08/20 (Quantity not on file) Cardiac ICD [employer] - CARDIAC RHYTH-CRDM OUMOU Gutierrez DR [id number] / [id number] / Procedures Procedure Name Priority Date/Time Associated Diagnosis Comments CARDIAC DEVICE CHECK- REMOTE- MURJ Routine 12/22/2024 7:17 PM EDT CARDIAC DEVICE CHECK- IN CLINIC- MURJ Routine [...] * Cardiac device check - Remote- MURJ (12/22/2024 7:17 PM EDT) Only the most recent of2 resultswithin the time period is included. Date Time Interrogation Session [id number] CV DEVICE CHECK Type Interrogation Session Remote CV DEVICE CHECK Implantable Pulse Generator Nurse Healthcare Manager MDT CV DEVICE CHECK Implantable Pulse Generator Type ICD CV DEVICE CHECK Implantable Pulse Generator Model Oumou Gutierrez [id number] CV DEVICE CHECK Implantable Pulse Generator Serial Number [id number] CV DEVICE CHECK Implantable Pulse Generator Implant Date 20150829 CV DEVICE CHECK Battery Remaining Longevity 13.0 CV DEVICE CHECK Battery Voltage 2.890 CV D EVICE CHECK Battery FACTORY LABORER Trigger 2.727 CV DEVICE CHECK Battery Status Middle of Service CV DEVICE CHECK Capacitor Charge Time 4.174 CV DEVICE CHECK Leonard Statistic RA Percent Paced 91.36 CV DEVICE CHECK Leonard Statistic RV Percent Paced 1.29 CV DEVICE CHECK Atrial Tachy Statistic AT/AF [place] Percent 0.00 CV DEVICE CHECK Lead Channel Sensing Intrinsic Amplitude 0.375 CV DEVICE CHECK Lead Channel Setting Sensing Sensitivity 0.45 CV DEVICE CHECK Lead Channel Impedance Value 399 CV DEVICE CHECK Lead Channel Pacing Threshold Amplitude 0.625 CV DEVICE CHECK Lead Channel Pacing Threshold Pulse Width 0.4 CV DEVICE CHECK Lead Channel RA Pacing Threshold Date 2024-05-28 CV DEVICE CHECK Lead Channel Setting Pacing Amplitude 1.250 CV DEVICE CHECK Lead Channel Setting Pacing Pulse Width 0.4 CV DEVICE CHECK Lead Channel Sensing Intrinsic Amplitude 7.375 CV DEVICE CHECK Lead Channel Setting Sensing Sensitivity 0.30 CV DEVICE CHECK Lead Channel Impedance Value 342 CV DEVICE CHECK Lead Channel Pacing Threshold Amplitude 0.750 CV DEVICE CHECK Lead Channel Pacing Threshold Pulse Width 0.4 CV DEVICE CHECK Lead Channel RV Pacing Threshold Date 2024-05-31 CV DEVICE CHECK Lead Channel Setting Pacing [...] 0 CV DEVICE CHECK RV HV Impedance 53 CV D EVICE CHECK Zone Setting Type [...] 6 CV DEVICE CHECK Date of Service 2024-06-13 CV DEVICE CHECK Anatomical Region Laterality Modality Device Interroga tion 05/31/2024 1:24 AM EDT Impressions 06/13/2024 12:46 PM EDT Normal Remote: With Events * Normal Device Function * Events or Alerts: 1 *6 beats VT * Battery: OK, 1.08 yrs * Sensing, impedance and thresholds reviewed * Programmed parameters reviewed * Presenting rhythm reviewed * Heart Rate Histograms reviewed Narrative Procedure Note Benja Brown MD - 12/22/2024 IMPRESSION: Normal Remote: With Events * Normal Device Function * Events or Alerts: 1 *6 beats VT * Battery: OK, 1.08 yrs * Sensing, impedance and thresholds reviewed * Programmed parameters reviewed * Presenting rhythm reviewed * Heart Rate Histograms reviewed Benja Brown MD CV IMPLANTABLE CARDIAC DEVICE PROCEDURES Final Result * CARDIAC DEVICE CHECK- IN CLINIC- [facility] (12/14/2024 8:51 AM EDT) Date Time Interrogation Session [id number] CV DEVICE CHECK Implantable Pulse Generator Nurse Healthcare Manager MDT CV DEVICE CHECK Implantable Pulse Generator Type ICD CV DEVICE CHECK Implantable Pulse Generator Model Evera S [id number] CV DEVICE CHECK Implantable Pulse Generator Serial Number [id number] CV DEVICE CHECK Implantable Pulse Generator Implant Date 20150829 CV DEVICE CHECK Battery Remaining Longevity 7.0 CV DEVICE CHECK Battery Status Middle of Service CV DEVICE CHECK Leonard Statistic RA Percent Paced 95.50 CV DEVICE CHECK Leonard Statistic RV Percent Paced 2.70 CV DEVICE CHECK Atrial Tachy Statistic AT/AF [place] Percent 0.10 CV DEVICE CHECK Lead Channel [...] * Pacing and Detection Parameters were evaluated Order Referral Cardiovascular CV IMPLANTABLE CAR DIAC DEVICE PROCEDURES Final Result * Annual BMP Blood Test (03/10/2024) Pathologist [facility] Annual BMP Blood Test abstracted Result [facility] Provider HEALTH MAINTENANCE Final Result * Urine Albumin Creatinine Ratio (05/01/2019) Pathologist [facility] Urine Albumin Creatinine Ratio abstracted Result [facility] Provider HEALTH MAINTENANCE Final Result * (ABNORMAL) Hemoglobin A1c (09/22/2018) [facility] Hemoglobin A1C 8.2(A) <=6.5 % Blood Venous blood specimen / Unknown Result [facility] Provider LAB BLOOD ORDERABLES Gini l Result * Lipid panel (05/09/2018) [facility] LDL/HDL Ratio 3 0 - 4 Triglycerides 65 0 - 150 mg/dL Cholesterol 146 0 - 200 mg/dL HDL 52 >=40 mg/dL LDL Cholesterol 81 0 - 100 mg/dL Blood Venous blood specimen / Unknown Result [facility] Provider LAB BLOOD ORDERABLES Gini l Result from Last 3 Months or Most Recently Relevant to Health Maintenance Insurance MEDICARE [facility] Care Teams Mental Health Consultant Relationship Specialty Start Date End Date Ria Bryant MD [address] [place] [address] PCP - General Internal Medicine 08/23/24
--- NOTE | 2025-01-12 08:45 | MHC.OFFVISCO ---
Intake Intake Visit Reasons: Anticoagulation Allergies isosorbide Adverse Reaction (Unknown, Verified 01/12/25 08:42) dizziness Medication List - Last Reconciled 01/12/25 by Sonya Tobar RN atorvastatin 40 mg PO DAILY carvedilol 12.5 mg PO BID furosemide 20 mg PO DAILY glipizide 10 mg PO BID lisinopril 10 mg PO DAILY magnesium oxide 400 mg PO BID metformin 1,000 mg PO BID nitroglycerin 0.4 mg sublingual DAILY omeprazole 20 mg PO DAILY@0630 30 days sacubitril-valsartan 24-26 mg (Entresto) 1 tab PO BID warfarin 5 mg See Protocol PO DAILY@1800 Nursing Note INR 3.2?? out of therapeutic range- 2-3 Medications and supplements reviewed Patient status: no c.o Medications or supplements: no changes Diet: appetite good Denies any signs and symptoms of bleeding or clotting or unusual bruising Bleeding, bruising, clotting discussed Nutritional guidance given: does not eat greens Dose: already took today, take 5mg tomm then cont reg 5mg x 1. 7.5mg x 6 F/U INR Date : 2 weeks?? Patient verbalizing understanding of instructions given. Anti-Coag Initial Assessment Social Hx Patient Tobacco Use Status: Never used Tobacco alcohol intake: former Alcohol intake frequency: does not drink Cardiovascular Hx: HTN, Angina, IA, Arrhythmias, Cardiomyopathy and Other Endocrine Hx: Diabetes Blood Disorder Hx: Hyperlipidemia Hx: Kidney Disease Cancer HX: No Psych. Illness/Depression: Yes Coding Level of Care Code Est Patient Level 1 Diagnoses Current use of anticoagulant therapy Z79.01 Assessment & Plan Assessment & Plan (1) Current use of anticoagulant therapy: Code(s): Z79.01 - halfway (current) use of anticoagulants
[2025-01-12 08:47] LABS: Prothrombin Time Whole Bld POC 38.3 sec (11.1-13.5); ~PT, ~INR - Anti Coag Clinic 3.2 (0.9-1.1)
== END 2025-01-12 08:53 | disposition home or self-care (01) ==
LOC: HO.ACS 08:39
PROVIDERS: PCP Internal Medicine; Visit Provider Internal Medicine Medical Oncology
DX: Z79.01 Long term (current) use of anticoagulants (principal)

== ENCOUNTER → 2025-01-12 08:39 | Outpatient (BNVA) | payer MEDICARE, SELFPAY | PROVIDERS: PCP Internal Medicine; Visit Provider Internal Medicine Medical Oncology | DX: I48.0 Paroxysmal atrial fibrillation (principal); Z79.01 Long term (current) use of anticoagulants; Z51.81 Encounter for therapeutic drug level monitoring | CPT/HCPCS: 85610; 99211 ==

== ENCOUNTER 2025-01-26 08:48 | Outpatient (AMB) | payer MEDICARE, SELFPAY ==
--- OUTSIDE RECORDS SUMMARY | 2025-01-26 09:00 | XMS_ITS | Clinical Summary ---
Author Organization [address] [place] [address] Address [address] [place] [address] Phone Care Team Providers Care Insurance Marketing Rep Name Role Phone Ria Bryant MD Primary Care Provider [phone] Allergies No known active allergies Medications lancets [...] Take 1-2 tablets daily as prescribed by [facility]. 180 tablet 3 5 Active Active Problems Problem Noted Date Diagnosed Date Atrial fibrillation ([facility] V24, [facility] V28) 0 03/18/2023 Overview (06/27/2024): [...] left 10/02/2018 DVT (deep venous thrombosis) ([facility] V24, CMS/H CC V28) 05/20/2018 [...] Encounters Date Type Department Care Team Description 01/17/2025 Telephone [facility] Cardiology [facility] - [address] [place] [address] Garret Hendrickson MD Foot Swelling 12/22/2024 7:20 PM EDT Ancillary Procedure [facility] Cardiology [facility] - [address] [place] [address] 12/14/2024 9:00 AM EDT Ancillary Procedure [facility] - [address] [place] [address] Encounter for adjustment or management of cardiac device 12/11/2024 11:20 PM EDT Ancillary Procedure [facility] - [address] [place] [address] 11/14/2024 Telephone [facility] - [address] [place] [address] Garret Hendrickson MD Med Refill (Carvedilol ) 11/14/2024 Telephone [facility] - [address] [place] [address] Garret Hendrickson MD Med Refill from Last 3 Months Immunizations Name Administration [...] Coronary atherosclerosis of unspecified type of vessel, [place] or graft 06/09/2006 DX:Coronary atherosclerosis of unspecified type of vessel, [place] or graft; COMMENT: [place] 1998 Alcohol abuse, [...] Description 07/17/2025 8:30 AM EDT Ancillary Procedure [facility] [address] [facility] [address] [place] [address] Health Maintenance Due Date Last [...] this topic Medical Devices Implanted Type Area Hogshead Builder Device Identifier Shelf Expiration Date Model / Serial / Lot Medt-Card Oumou Gutierrez Dr [id number] Implanted:08/20 (Quantity not on file) Cardiac ICD MED[employer] - CARDIAC RHYTH-CRDM OUMOU Gutierrez DR [id number] / [id number] / Procedures Procedure Name Priority Date/Time Associated [...] period is included. Date Time Interrogation Session [id number] CV DEVICE CHECK Type Interrogation Session Remote CV DEVICE CHECK Implantable Pulse Generator Hogshead Builder MDT CV DEVICE CHECK Implantable Pulse Generator Type ICD CV DEVICE CHECK Implantable Pulse Generator Model Oumou Gutierrez [id number] CV DEVICE CHECK Implantable Pulse Generator Serial Number [id number] CV DEVICE CHECK Implantable Pulse Generator Implant Date 20150829 CV DEVICE CHECK Battery Remaining Longevity 13.0 CV DEVICE CHECK Battery Voltage 2.890 CV D EVICE CHECK Battery POWER GENERATION TECHNICIAN Trigger 2.727 CV DEVICE CHECK Battery Status Middle of Service CV DEVICE CHECK Capacitor Charge Time 4.174 CV DEVICE CHECK Leonard Statistic RA Percent Paced 91.36 CV DEVICE CHECK Leonard Statistic RV Percent Paced 1.29 CV DEVICE CHECK Atrial Tachy Statistic AT/AF [place] Percent 0.00 CV DEVICE CHECK Lead Channel [...] Result * CARDIAC DEVICE CHECK- [place] [facility] (12/14/2024 8:51 AM EDT) Date Time Interrogation Session [id number] CV DEVICE CHECK Implantable Pulse Generator Hogshead Builder MDT CV DEVICE CHECK Implantable Pulse Generator Type ICD CV DEVICE CHECK Implantable Pulse Generator Model Evera S [id number] CV DEVICE CHECK Implantable Pulse Generator Serial Number [id number] CV DEVICE CHECK Implantable Pulse Generator Implant Date 20150829 CV DEVICE CHECK Battery Remaining Longevity 7.0 CV DEVICE CHECK Battery Status Middle of Service CV DEVICE CHECK Leonard Statistic RA Percent Paced 95.50 CV DEVICE CHECK Leonard Statistic RV Percent Paced 2.70 CV DEVICE CHECK Atrial Tachy Statistic AT/AF [place] Percent 0.10 CV DEVICE CHECK Lead Channel [...] * Pacing and Detection Parameters were evaluated Result [facility] Order Referral Cardiovascular CV IMPLANTABLE CAR DIAC DEVICE PROCEDURES Final Result * Annual BMP Blood Test (03/10/2024) Pathologist [facility] Annual BMP Blood Test abstracted Result [facility] Provider HEALTH MAINTENANCE Final Result * Urine Albumin Creatinine Ratio (05/01/2019) Pathologist [facility] Urine Albumin Creatinine Ratio abstracted Result [facility] Provider HEALTH MAINTENANCE Final Result * (ABNORMAL) Hemoglobin A1c (09/22/2018) [facility] Hemoglobin A1C 8.2(A) <=6.5 % Blood Venous blood specimen / Unknown Result [facility] Provider LAB BLOOD ORDERABLES Gini l Result * Lipid panel (05/09/2018) [facility] LDL/HDL Ratio 3 0 - 4 Triglycerides 65 0 - 150 mg/dL Cholesterol 146 0 - 200 mg/dL HDL 52 >=40 mg/dL LDL Cholesterol 81 0 - 100 mg/dL Blood Venous blood specimen / Unknown Result [facility] Provider LAB BLOOD ORDERABLES Gini l Result from Last 3 Months or Most Recently Relevant to Health Maintenance Insurance MEDICARE [facility] Care Teams Insurance Marketing Rep Relationship Specialty Start Date End Date Ria Bryant MD [address] [place] [address] PCP - General Internal Medicine 08/23/24
--- NOTE | 2025-01-26 09:01 | MHC.OFFVISCO ---
Intake Intake Visit Reasons: Anticoagulation Allergies isosorbide Adverse Reaction (Unknown, Verified 01/26/25 08:48) dizziness Medication List - Last Reconciled 01/26/25 by Sherie Ramirez RN atorvastatin 40 mg PO DAILY carvedilol 12.5 mg PO BID furosemide 20 mg PO DAILY glipizide 10 mg PO BID lisinopril 10 mg PO DAILY magnesium oxide 400 mg PO BID metformin 1,000 mg PO BID nitroglycerin 0.4 mg sublingual DAILY omeprazole 20 mg PO DAILY@0630 30 days sacubitril-valsartan 24-26 mg (Entresto) 1 tab PO BID warfarin 5 mg See Protocol PO DAILY@1800 Nursing Note INR: 3.5 out of therapeutic range pf 2-3 Medications and supplements reviewed Patient status: feels well Medications or supplements: pt denies changes Diet: usual diet for pt, states he has a good appetite Denies any signs and symptoms of bleeding or clotting or unusual bruising Bleeding, bruising, clotting discussed Nutritional guidance given: to have a serving of greens today but pt doesn't like greens so will decrease dose. Dose: pt already took today's dose so will decrease tomorrow's dose to 2.5mg (usual 7.5mg) then 7.5mg X 5 days and 5mg X 2 days (Wed & Wed) F/U INR Date: 2 weeks?? Patient verbalizing understanding of instructions given. Anti-Coag Initial Assessment Social Hx Patient Tobacco Use Status: Never used Tobacco alcohol intake: former Alcohol intake frequency: does not drink Cardiovascular Hx: HTN, Angina, [place], Arrhythmias, Cardiomyopathy and Other Endocrine Hx: Diabetes Blood Disorder Hx: Hyperlipidemia Hx: Kidney Disease Cancer HX: No Psych. Illness/Depression: Yes Coding Level of Care Code Est Patient Level 1 Diagnoses Current use of anticoagulant therapy Z79.01 Results AMB INR Fingerstick AMB INR Fingerstick 3.5 Last Edit by Sherie Ramirez RN on 01/26/25 08:59 interface delay Assessment & Plan Assessment & Plan (1) Current use of anticoagulant therapy: Code(s): Z79.01 - halfway (current) use of anticoagulants
--- OUTSIDE RECORDS SUMMARY | 2025-01-26 09:01 | XMS_ITS ---
Author Organization [facility] Address [address] [place] [address] Care Team Providers Care Care Associate Name Role Phone Annette GUNDERSON, Ria Primary Care Provider Boyd Roa Jr, Rainer Aaron Encounters Encounter Location Date Provider Diagnosis [facility] [address] [place] [address] 03/22/2024 Rainer Roa Jr Plan Of Treatment No Information Progress Notes * BECKHAMKERMIT BUTTSSONYAOB: [birth year] (83 yo M)Acc No.[id number]:03/22/2024 Patient:?SOREN BECKHAM :1940???Age:83 Y???Sex:Male Address:[address] [place] [address], [address] * true * Date:? Generated for Lisa tyler/Aliya/eTransmitting on:?01/26/2025 09:00 AM EDT
--- OUTSIDE RECORDS SUMMARY | 2025-01-26 09:01 | XMS_ITS | Continuity of Care Document ---
Author Organization [facility] Address [address] [place] [address]- Care Team Providers Care Neck Band Setter Name Role Phone Troy GUNDERSON, Yessenia Primary Care Physician Encounter [facility] Date(s): 12/22/24 - 01/21/25 [facility] [address] [place], [place] [address] Encounter Type: Triage Allergies, Adverse Reactions, Alerts [...] virus vaccine, inactivated 06/19/05 Casey rded SARS-CoV-2(COVID-19)mRNA-LNP vac([id number]) 06/04/24 Recorded tetanus-diphtheria toxoids (Td) 3 04/29/23 Given tetanus-diphtheria toxoids (Td) 09/02/10 Recorded [id number] 12y+ bivalent booster vax 07/29/22 Given SARS-CoV-2 [...] Pneumococcal Vaccine (oldterm) 11/29/07 Given 1Result Comment: [facility][NOTE 3] [id number] 2Result Comment: Patient tollerated well 3Result Comment: [facility][NOTE 3] [id number] Medications Ascriptin Enteric 81 mg, By Mouth, Daily, Refills 0, Tot. Refills 0, 11/16/07 6:08:35 PM EST Start Date: 11/16/07 Status: Ordered Repeat number: 1 atorvastatin 40 mg oral tablet 1 tablet, By Mouth, Daily, # 90 tablet, 6 Refills, Maintenance, 09/29/24 9:21:00 AM EST, [facility], 164.03, cm, 09/29/24 8:39:00 EST, Height, 64.6, kg, 09/29/24 8:35:00 EST, Dry Weight Start Date: 09/29/24 Status: Ordered Quantity: 90.0 Unit: tablet Repeat number: 7 carvedilol 12.5 mg oral tablet 12.5 mg, 1, tablet, By Mouth, 2 times a day, # 60 tablet, Refills 6, Tot. Refills 6, Maintenance, 09/29/24 9:22:00 AM EST, Route to Pharmacy Electronically, [facility], Partial fill upon patient request [...] 6 Refills, Maintenance, 09/29/24 9:35:00 AMEST, Tablet, [facility], Partial fill upon patient request [...] 09/29/24 9:21:00 AMEST, Route to Pharmacy Electronically, [facility], 164.03, cm, 09/29/24 8:39:00EST, Height, [...] 3 Refills, Maintenance, 11/08/24 3:38:00 PM EST, [facility], Partial fill upon patient request if the prescription is for a schedule II opioid drug., 164.03, cm, 11/01/24 13:32:00 EST, Height, 64.6, kg, 09/29/24 8:35:00 EST, Dry Weight Start Date: 11/08/24 Status: Ordered Quantity: 360.0 Unit: tablet Repeat number: 4 metFORMIN 750 mg oral tablet, extended release 1 tablet = 750 mg, By Mouth, 2 times a day, # 60 tablet, 3 Refills, Maintenance, 12/28/24 9:35:00 AMEDT, ER Tablet, [facility], Partial fill upon patient request if the prescription is for a schedule II opioid drug. changing from 500mg ER dose to help with adherence., 164.03, cm, 12/28/24 9:05:00 EDT, Height, 64.5, kg, 12/28/24 9:05:00 EDT, Dry Weight Start Date: 12/28/24 Status: Ordered Quantity: 60.0 Unit: tablet Repeat number: 4 Indication: Type 2 diabetes mellitus with hyperglycemia Nitrostat 0.4 mg sublingual tablet 1 tablet = 0.4 mg, Sublingual, Every 5 minutes, PRN Chest Pain, # 100 tablet, 0 Refills, Maintenance, 11/03/19 4:02:00 PM EST, Tablet, [id number], 166, cm, 11/03/19 15:28:00 EST, [...] Care Nurse Name: Yessenia Simmons MD Position: [facility] Physician - Primary Care Member Role: PCP Address: [address] [place] [address] Adult & Pediatric Medicine [address] Telecom: Name: Kati Gordon RN Position: [...]
--- OUTSIDE RECORDS SUMMARY | 2025-01-26 09:01 | XMS_ITS ---
Author Organization [facility] Address [address] [place] [address] Care Team Providers Care Jordan Man Name Role Phone Ria Braynt MD Primary Care Provider Rainer Schaffer Jr Unavailable REASON FOR VISIT GI BLEED Encounters Encounter Location Date Provider Diagnosis [facility] Inpatient [address] [place], [place] [id number] 03/22/2024 Rainer Roa Jr Plan Of Treatment No Information Progress Notes * KERMIT BECKHAMODOB: [birth year] (84 yo M)Acc No.[id number]:03/22/2024 EGD and COL/MAC Patient:?SOREN BECKHAM Provider:?Rainer Roa MD :1940???Age:83 Y???Sex:Male Lizandro e:03/22/2024 Address:[address] [place], [place] [id number] Pcp:Ria Bryant MD Subjective: * Chief Complaints: [...] MD Date:?0 03/22/2024 Generated for Lisa tyler/Aliya/eTransmitting on:?01/26/2025 09:01 AM EDT
--- OUTSIDE RECORDS SUMMARY | 2025-01-26 09:01 | XMS_ITS | Patient Health Record ---
Author Organization [facility] Address [address] [place] [address] Care Team Providers Care Moisture Machine Tender Name Role Phone Annette GUNDERSON, Ria Primary Care Provider Rainer Schaffer Jr Results Component Value Reference Range Notes Prothrombin Time INR Reviewed date:03/22/2024 08:14:46 AM Interpretation: Performing Lab:[facility], [address] [place] [id number] Notes/Report: Prothrombin Time 17.3 11.1-13.3 SEC INTERNATIONAL [...] Pathology Reviewed date:03/30/2024 11:36:05 AM Interpretation: Performing Lab:[facility], [address] [place] [phone] Notes/Report: --- Name: Krishna Beckham Age/Sex: 83/M : 1940 Unit#: [id number] Attend Dr: Christin Ortiz Re03/20/24 Status : DIS IN Location: [facility] 469-1 Disch: 03/23/24 --- SPEC : [id number] RECD : 03/24/24 STATUS: JAMAL LEWIS NUM: [id number] ROSENDA: 03/22/24-[address]: Rainer Roa MD [...] Beckham homer Age/Sex: 83/M : 1940 Unit#: [id number] Attend Dr: Christin Ortiz Re03/20/24 Status : DIS IN Location: [facility] 469-1 Disch: 03/23/24 --- SPEC : [id number] RECD : 03/24/2436 STATUS: JAMAL RECintia NUM: [id number] ROSENDA: 03/22/24-[address]: Rainer Roa MD ENTERED: 03/24/24 45 SP TYPE: Surgical OTHR DR: Christin Ortiz SMITHA S MD ORDERED: HE Stain/3, Gross Micro L4, IHC, Special st. 2, H. pylori, AB/PAS Copies To: Christin Ortiz [address] [place] [address] Rainer Roa MD [facility] [address] [place] [address] RIA WOO MD [id number] [place], [place] [id number] --- Signed (signature on file) Sherie Lynn 03/27/24 1332 (signature on file) Gerardo Anderson MD 03/28/24 1039 --- END OF REPORT Reason For Referral No Information Problems Problem Type SNOMED Code ICD Code Onset Dates Problem Status W/U Status Risk Notes Problem Iron deficiency anemia (D50.9) Active confirmed Problem Gastritis (4393496) Gastritis (K29.70) Active confirmed Encounters Encounter Location Date Provider Diagnosis [facility] [address] [place], [place] [id number] 03/22/2024 Rainer Roa Jr [facility] [address] [place] [phone] 03/22/2024 Rainer Roa Jr [facility] [address] [place] [phone] 03/30/2024 Rainer Roa Jr Plan Of Treatment No Information Insurance Providers Payer Name Payer Address Payer Phone Subscriber Number Group Number Insured Name Patient Relationship to Insured Coverage Start Date Coverage End Date MEDICARE [place] [address] [place] [address] [id number] SOREN BECKHAM Self - patient is the insured [employer] ATT[employer] CLAIMS [address] [place] [phone] [id number] SOREN BECKHAM Self - patient is the insured
--- OUTSIDE RECORDS SUMMARY | 2025-01-26 09:01 | XMS_ITS ---
Author Organization [facility] Address [address] [place] [phone] Care Team Providers Care Sole Painter Name Role Phone Annette GUNDERSON, Ria Primary Care Provider Boyd Roa Jr, Rainer Aaron REASON FOR VISIT pathology Encounters Encounter Location Date Provider Diagnosis [facility] [address] [place] [phone] 03/30/2024 Rainer Roa Jr Plan Of Treatment No Information Progress Notes * KERMIT BECKHAMODOB: [birth year] (83 yo M)Acc No.[id number]:03/30/2024 Patient:?SOREN BECKHAM :1940???Age:83 Y???Sex:Male Address:[address] [place] [address], [place], [address] * true * Date:? Generated for Lisa tyler/Aliya/eTransmitting on:?01/26/2025 09:01 AM EDT
[2025-01-26 09:02] LABS: Prothrombin Time Whole Bld POC 42.5 sec (11.1-13.5); ~PT, ~INR - Anti Coag Clinic 3.5 (0.9-1.1)
== END 2025-01-26 09:05 | disposition home or self-care (01) ==
LOC: HO.ACS 08:48
PROVIDERS: PCP Internal Medicine; Visit Provider Internal Medicine Medical Oncology
DX: Z79.01 Long term (current) use of anticoagulants (principal)

== ENCOUNTER → 2025-01-26 08:48 | Outpatient (BNVA) | payer MEDICARE, SELFPAY | PROVIDERS: PCP Internal Medicine; Visit Provider Internal Medicine Medical Oncology | DX: I48.0 Paroxysmal atrial fibrillation (principal); Z79.01 Long term (current) use of anticoagulants; Z51.81 Encounter for therapeutic drug level monitoring | CPT/HCPCS: 85610; 99211 ==

== ENCOUNTER 2025-02-02 12:31 | Emergency (ER) | payer MEDICARE, SELFPAY ==
--- NOTE | ~2025-02-02 | XR_ITS ---
EXAMINATION: XR CHEST 1 VIEW HISTORY: weakness COMPARISON: Comparison is made with the prior examination dated 03/20/2024. FINDINGS: A single AP portable view of the chest performed at 1:21 PM is submitted. A right subclavian dual-chamber pacemaker is unchanged in position. The lungs are expanded and clear. There is no pleural effusion, pneumothorax, or pulmonary vascular congestion. The heart is normal in size. There is calcification of the aortic knob. There is degenerative disc disease of the spine. XR/XR chest 1V IMPRESSION: No acute cardiopulmonary abnormality. Electronically signed by: Fritz Waters MD 02/02/2025 01:27 PM EDT
[2025-02-02 13:03] VITALS: BP 144/85; PULSE 76; RESP 18; TEMP 36.7; O2SAT 96; BMI 23.6
--- NOTE | 2025-02-02 13:03 | ED_ITS ---
HPI - General Adult General Chief complaint: Weakness Stated complaint: Weakness Time Seen by Provider: 02/02/25 16:02 Source: patient Mode of arrival: ambulatory Limitations: no limitations History of Present Illness ED Provider: Dr. Gina Hylton HPI narrative: Patient comes to the emergency room complaining of fatigue for about 3 weeks. Patient states that he just feels very tired. Patient states that yesterday he tried to cut his grass but he was too tired and had to go back lay down. Patient states that she has no pain, no chest pain or shortness of breath. Patient denies any rectal bleeding or black stool. Patient was seen at [facility] 2 days ago, patient had the same complaints. Workup was negative. Patient denies any recent changes in medication. Related Data Home Medications ?Medication ?Instructions ?Recorded ?Confirmed warfarin 5 mg tablet 5 mg PO DAILY@1800 06/14/23 01/26/25 metformin 500 mg tablet 1,000 mg PO BID 07/08/23 01/26/25 magnesium oxide 400 mg (241.3 mg 400 mg PO BID 10/22/23 01/26/25 magnesium) tablet carvedilol 12.5 mg tablet 12.5 mg PO BID 03/21/24 01/26/25 furosemide 20 mg tablet 20 mg PO DAILY 03/21/24 01/26/25 sacubitril 24 mg-valsartan 26 mg 1 tab PO BID 04/21/24 01/26/25 tablet (Entresto) nitroglycerin 0.4 mg sublingual 0.4 mg sublingual DAILY 04/28/24 01/26/25 tablet lisinopril 10 mg tablet 10 mg PO DAILY 06/30/24 01/26/25 Previous Rx's ?Medication ?Instructions ?Recorded glipizide 10 mg tablet 10 mg PO BID #180 tabs 07/29/20 atorvastatin 40 mg tablet 40 mg PO DAILY #90 tabs 10/16/20 omeprazole 20 mg capsule,delayed 20 mg PO DAILY@0630 30 days #30 03/23/24 release caps Allergies Allergy/AdvReac Type Severity Reaction Status Date / Time isosorbide AdvReac Unknown dizziness Verified 02/02/25 13:06 Review of Systems 2 Review of Systems: Constitutional : No Weight loss, No Fever, No Chills, No Night Sweats, Complaining of Fatigue, No Malaise ENT/Mouth : No Hearing loss, No Ear Pain, No Nasal Congestion, No Sinus Pain, No Hoarseness, No sore throat, No Rhinorrhea, No Swallowing Difficulty Eyes: No Eye Pain, No Swelling, No Redness, No Foreign Body, No Discharge, No Vision Changes Cardiovascular : No Chest Pain, No SOB, No Dyspnea on Exertion, No Orthopnea, No Edema, No Palpitations Respiratory : No Cough, No Sputum, No Wheezing, No Smoke Exposure, No Dyspnea Gastrointestinal : No Nausea, No Vomiting, No Diarrhea, No Constipation, No abdominal Pain, No Hematochezia, No Melena Genitourinary : no irregular bleeding, No Dysuria, No Urinary Frequency, No Hematuria, No Urinary Incontinence, No Urgency, No Flank Pain, No Urinary Flow Changes, No Hesitancy Musculoskeletal : No joint pain, No Myalgias, No Joint Swelling Skin : No Skin Lesions, No rash Neuro : No Weakness, No Numbness, No Paresthesias, No Loss of Consciousness, No Dizziness, No Headache Psych : No Anxiety/Panic, No Depression, No SI/HI/AH/VH, No Social Issues, Heme/Lymph: No Bruising, No Bleeding,No Lymphadenopathy Endocrine : No Polyuria, No Polydipsia, No Temperature Intolerance [facility] Past Medical History Medical History History of alcohol abuse Ischemic cardiomyopathy with implantable cardioverter-defibrillator (ICD) Hyperlipidemia HTN (hypertension) Diabetes mellitus CAD (coronary artery disease) Atrial fibrillation Current use of anticoagulant therapy Surgical History H/O heart surgery Family History Family History Unknown No problems noted. Sister Liver cancer Social History Social History Household Members: None Housing: House Housing Other:: [employer] [facility] [facility] Do you presently have visiting nurse or other home services: No Alcohol intake: former Patient Tobacco Use Status: Never used Tobacco Smoked in Last 30 Days: No Use of substances other than those prescribed or required for medical reasons: No Advance Directives: Yes Advance Directives on File: Yes Advance Directives Date on File: 11/27/23 Do you have a plan to hurt others: No Plan service: No Current occupational status: retired Current occupation: RETIRED 20 YEARS Current occupational exposures/hazards: No Physical Exam ED Vital Signs: Vital Signs - 24 hr 02/02/25 13:03 02/02/25 14:58 02/02/25 14:58 Temperature 98.1 F Pulse Rate 76 77 77 Respiratory Rate 18 Blood Pressure 144/85 H 172/94 H 174/94 H Pulse Oximetry 96 Oxygen Delivery Method Room Air 02/02/25 14:59 02/02/25 16:00 02/02/25 18:00 Temperature 97.3 F 97.6 F Pulse Rate 80 66 60 Respiratory Rate 13 15 Blood Pressure 164/89 H 154/85 H 137/72 Pulse Oximetry 99 98 Oxygen Delivery Method Room Air Room Air BMI result Body Mass Index 23.6 Const Other: Appearance: Alert. Oriented X3. No acute distress. Eyes: Pupils equal, round and reactive to light. ENT: Pharynx normal. Neck: Normal inspection. Neck supple. No lymph nodes noted. No crepitus CVS: Normal heart rate and rhythm. Pulses normal. Normal S1 and S2 Respiratory: No respiratory distress. Breath sounds normal. No Wheezing. No rales Abdomen: Soft and nontender. No rigidity. No distention. Skin: Skin warm and dry. Normal skin color. Normal skin turgor. Extremities: No lower extremity edema. No Lacerations. No Rash, patient is ambulatory without assistance with normal steady gait Neuro: Oriented X 3. No motor deficit. No sensory deficit. Moving all extremities. No slurred speech. CN 2 through 12 grossly intact Psych: calm, cooperative, normal affect Course Course Course Narrative: This is a Rapid Medical Exam performed in triage by Roxie Quevedo PA-C. Full HPI, ROS and PE to be performed by primary ED provider. 84-year-old male with a past medical history of anemia, hypomagnesemia, hematuria presenting to the ED c/o generalized fatigue/weakness x3 wks. Was seen at [facility] states was there for 6 hours & nothing was done for him. Denies SOB, CP, abd pain, N/V. PO intake wnl PE: Ambulating with steady gait, nontoxic appearing Plan: EKG, labs, viral testing, UA Medications Administered Discontinued Medications Generic Name Dose Route Start Last Admin Trade Name Freq PRN Reason Stop Dose Admin Magnesium Sulfate 2 gm in 50 mls @ 25 mls/hr 02/02/25 16:20 02/02/25 18:15 Magnesium Sulfate/H2o IV 02/02/25 18:19 Infused ONCE ONE Infusion Medical Decision Making Medical Decision Making [facility] Narrative: my interpretation of labs: Patient's white blood cell count within normal limits, hemoglobin and hematocrit slightly decreased but this is the patient's baseline, normal chemistry, magnesium 1.3 which will be repleted IV, normal LFTs, normal troponin, serology negative for influenza RSV and COVID. Urinalysis negative for UTI chest x-ray negative for any acute findings it was considered to get a PT/case management consult. However, patient is ambulatory with normal steady gait. Oriented x3. patient received 2 g of IV magnesium. Patient states that at home he takes p.o. magnesium. I asked the patient to double his dose of magnesium until he sees his primary care physician. He has an appointment next week. Differential Diagnosis Differential Diagnoses: The differential diagnosis associated with the presentation includes ( viral syndrome, UTI, depression) Lab Data [facility] Lab Attestation statement: I reviewed the patient's lab results. 02/02/25 13:41 02/02/25 13:41 Labs: Lab Results 02/02/25 02/02/25 02/02/25 Range/Units 13:41 16:31 16:52 WBC 5.4 (4.8-10.8) X10*3/uL RBC 3.90 L (4.60-5.80) X10*6/uL Hgb 12.0 L (14.0-18.0) g/dl Hct 35.0 L (42.0-52.0) % MCV 89.7 (80.0-98.0) fL MCH 30.8 (27.0-33.0) pg MCHC 34.3 (31.0-36.0) g/dl RDW 12.6 (11.0-16.0) % Plt Count 185 (160-400) X10*3/uL MPV 8.8 L (9.4-12.4) fL Immature Gran % (Auto) 0.2 (0.0-0.4) % Neut % (Auto) 71.6 (45-73) % Lymph % (Auto) 17.4 L (20-40) % Valley % (Auto) 8.9 (2-11) % Eos % (Auto) 1.5 (0-4) % Baso % (Auto) 0.4 (0-2) % Lymph # (Auto) 0.9 L (1.2-4.9) X10*3/uL Valley # (Auto) 0.5 (0.1-1.2) X10*3/uL Eos # (Auto) 0.1 (0.0-0.4) X10*3/uL Baso # (Auto) 0.0 (0.0-0.2) X10*3/uL Abs Immat Gran (auto) 0.01 (0.00-0.03) X10*3/uL Absolute Neuts (auto) 3.9 (2.0-8.3) x10*3/uL Absolute Nucleated RBC 0.000 (0.0-0.012) X10*3/uL Nucleated RBC % (auto) 0.0 (0.0-0.2) /100WBC PT 38.2 H (10.9-12.4) SEC INR 3.3 H D (0.9-1.1) Sodium 135 (135-145) mmol/L Potassium 4.6 (3.3-5.1) mmol/L Chloride 101 (96-108) mmol/L Carbon Dioxide 25 (22-29) mmol/L Anion Gap 14 (12-20) BUN 18 H (9-16) mg/dL Creatinine 0.97 (0.5-1.4) mg/dL Estim Creat Clear Calc 49.3 Estimated GFR > 60 Random Glucose 187 H (60-115) mg/dL Calcium 9.1 D (8.4-10.2) mg/dL Magnesium 1.3 L* (1.6-2.6) mg/dL Total Bilirubin 0.6 (0.0-1.0) mg/dL Direct Bilirubin 0.2 (0.0-0.5) mg/dL AST 38 H (5-37) U/L ALT 36 (0-40) U/L Alkaline Phosphatase 109 (39-117) U/L Troponin I High Sens 8.8 (<3.5-35.0) ng/L Total Protein 6.5 (6.5-8.0) g/dL Albumin 3.8 (3.5-5.0) g/dL Urine Color Yellow Urine Appearance Clear Urine pH 7.0 (5.0-9.0) Ur Specific [place] 1.010 (1.005-1.025) Urine Protein Negative (Neg-Trace) mg/dL Urine Glucose (UA) Negative (Negative) mg/dL Urine Ketones Negative (Negative) mg/dL Urine Blood Negative (Negative) Urine Nitrite Negative (Negative) Ur Leukocyte Esterase Negative (Negative) Influenza Type A (PCR) NEGATIVE (Negative) Influenza Type B (PCR) NEGATIVE (Negative) RSV RNA Qual (PCR) NEGATIVE (Negative) SARS-CoV-2 RNA (RT-PCR) NEGATIVE (Negative) Independent Interpretation I performed an independent interpretation of an: Plain X-Ray Radiology Impression Discussion of test interpretation with radiology: I have reviewed the radiologist's reading. Radiologist Impression: FINDINGS: A single AP portable view of the chest performed at 1:21 PM is submitted. A right subclavian dual-chamber pacemaker is unchanged in position. The lungs are expanded and clear. There is no pleural effusion, pneumothorax, or pulmonary vascular congestion. The heart is normal in size. There is calcification of the aortic knob. There is degenerative disc disease of the spine. XR/XR chest 1V IMPRESSION: No acute cardiopulmonary abnormality. Discharge Plan Discharge Clinical Impression: Hypomagnesemia, Weakness Patient Disposition: Home, Self-Care Instructions: Weakness (ED), Hypomagnesemia (ED) Additional Instructions: double up on your magnesium supplements until you see your primary care physician next week. Please follow-up with your primary care physician tomorrow. If you have any worsening or new symptoms, please return to the emergency room or call 911 Prescriptions: No Action glipizide 10 mg tablet 10 mg PO BID Qty: 180 1RF atorvastatin 40 mg tablet 40 mg PO DAILY Qty: 90 3RF carvedilol 12.5 mg tablet 12.5 mg PO BID Rx Instructions: must administer with a meal/food furosemide 20 mg tablet 20 mg PO DAILY omeprazole 20 mg Capsule,Delayed Release(Dr/Ec) 20 mg PO DAILY@0630 30 Days Qty: 30 0RF lisinopril 10 mg tablet 10 mg PO DAILY warfarin 5 mg tablet 5 mg PO DAILY@1800 Protocol: Dose Management Condition: Wednesday (Week One) Dose/Route: 7.5 mg Instruction: 1.5 x 5 mg tablets Condition: Wednesday Dose/Route: 7.5 mg Instruction: 1.5 x 5 mg tablets Condition: Wednesday Dose/Route: 7.5 mg Instruction: 1.5 x 5 mg tablets Condition: Wednesday Dose/Route: 5 mg Instruction: 1 x 5 mg tablet Condition: Dose/Route: 7.5 mg Instruction: 1.5 x 5 mg tablets Condition: Wednesday Dose/Route: 7.5 mg Instruction: 1.5 x 5 mg tablets Condition: Wednesday Dose/Route: 2.5 mg Instruction: 0.5 x 5 mg tablets Condition: Wednesday ( Two) Dose/Route: 7.5 mg Instruction: 1.5 x 5 mg tablets Condition: Wednesday Dose/Route: 7.5 mg Instruction: 1.5 x 5 mg tablets Condition: Wednesday Dose/Route: 7.5 mg Instruction: 1.5 x 5 mg tablets Condition: Wednesday Dose/Route: 5 mg Instruction: 1 x 5 mg tablet Condition: Dose/Route: 7.5 mg Instruction: 1.5 x 5 mg tablets Condition: Wednesday Dose/Route: 7.5 mg Instruction: 1.5 x 5 mg tablets Condition: Wednesday Dose/Route: 5 mg Instruction: 1 x 5 mg tablet Protocol Text: Adjustment Start Date: Wednesday01/26/25 INR Value: 3.5 INR Date: 01/26/25 Recheck Date: 02/09/25 Patient Comments: JUST INITIATED WARFARIN 06/11/23 metformin 500 mg tablet 1,000 mg PO BID magnesium oxide 400 mg (241.3 mg magnesium) tablet 400 mg PO BID Entresto 24-26 mg tablet 1 tab PO BID nitroglycerin 0.4 mg tablet, sublingual 0.4 mg sublingual DAILY Print Language: Unable To Collect
--- NOTE | 2025-02-02 13:05 | ECG_ITS ---
Test Reason : weakness Blood Pressure : */* mmHG Vent. Rate : 78 BPM Atrial Rate : 78 BPM P-R Int : 426 ms QRS Dur : 106 ms QT Int : 406 ms P-R-T Axes : * 4 199 degrees QTcB Int : 462 ms Atrial-paced rhythm with prolonged AV conduction ST & T wave abnormality, consider inferolateral ischemia Prolonged QT Abnormal ECG When compared with ECG of 25-Mar-2024 12:35, Electronic atrial pacemaker has replaced Sinus rhythm Referred By: Roxie Quevedo Electronically Signed By: JIHAN HAIRSTON MD
[2025-02-02 13:48] LABS: MANUAL DIFF FLAG NO
[2025-02-02 13:49] LABS: Basophils Percent Auto 0.4 % (0-2); Eosinophils Absolute Auto 0.1 X10*3/uL (0.0-0.4); Eosinophils Percent Auto 1.5 % (0-4); Imm Gran Abs Auto 0.01 X10*3/uL (0.00-0.03); Imm Gran Pct Auto 0.2 % (0.0-0.4); Lymphocytes Absolute Auto 0.9 X10*3/uL (1.2-4.9); Lymphocytes Percent Auto 17.4 % (20-40); Mean Corpuscular HGB Conc 34.3 g/dl (31.0-36.0); Mean Corpuscular Hemoglobin 30.8 pg (27.0-33.0); Mean Corpuscular Volume 89.7 fL (80.0-98.0); Mean Platelet Volume 8.8 fL (9.4-12.4); Monocytes Absolute Auto 0.5 X10*3/uL (0.1-1.2); Monocytes Percent Auto 8.9 % (2-11); Neutrophils Absolute Auto 3.9 x10*3/uL (2.0-8.3); Neutrophils Percent Auto 71.6 % (45-73); Platelet Count 185 X10*3/uL (160-400); Red Cell Distribution Width 12.6 % (11.0-16.0); White Blood Count 5.4 X10*3/uL (4.8-10.8)
[2025-02-02 14:10] LABS: Troponin-I High Sensitivity 8.8 ng/L (<3.5-35.0)
[2025-02-02 14:13] LABS: Alanine Aminotransferase 36 U/L (0-40); Albumin Level 3.8 g/dL (3.5-5.0); Alkaline Phosphatase 109 U/L (39-117); Anion Gap 14 (12-20); Aspartate Amino Transferase 38 U/L (5-37); Bilirubin Direct 0.2 mg/dL (0.0-0.5); Bilirubin Total 0.6 mg/dL (0.0-1.0); Blood Urea Nitrogen 18 mg/dL (9-16); Calcium 9.1 mg/dL (8.4-10.2); Carbon Dioxide 25 mmol/L (22-29); Chloride 101 mmol/L (96-108); Creatinine Clr Calc Pharmacy 49.3; Estimated Glomerular Filt Rate > 60; Glucose Random 187 mg/dL (60-115); Magnesium 1.3 mg/dL (1.6-2.6); Potassium 4.6 mmol/L (3.3-5.1); Sodium 135 mmol/L (135-145); Total Protein 6.5 g/dL (6.5-8.0)
[2025-02-02 14:24] LABS: Influenza A PCR NEGATIVE (Negative); Influenza B PCR NEGATIVE (Negative); Resp Syncy Virus RNA Qual PCR NEGATIVE (Negative); SARS COV2 PCR INHOUSE NEGATIVE (Negative)
[2025-02-02 14:58] VITALS: BP 172/94; BP 174/94; PULSE 77
[2025-02-02 14:59] VITALS: BP 164/89; PULSE 80
--- OUTSIDE RECORDS SUMMARY | 2025-02-02 15:24 | XMS_ITS ---
Author Organization [facility] Address [address] [place] [phone] Care Team Providers Care Sleeve Turner Name Role Phone Annette GUNDERSON, Ria Primary Care Provider Boyd Roa Jr, Rainer Aaron [phone] Encounters Encounter Location Date Provider Diagnosis [facility] [address] [place] [phone] 03/22/2024 Rainer Roa Jr Plan Of Treatment No Information Progress Notes * BECKHAMKERMIT BUTTSSONYAOB: [birth year] (83 yo M)Acc No.[id number]:03/22/2024 Patient:?SOREN BECKHAM :1940???Age:83 Y???Sex:Male Address:[address] [place] [address], [place], [address] * true * Date:? Generated for Lisa tyler/Aliya/eTransmitting on:?02/02/2025 03:24 PM EDT
--- OUTSIDE RECORDS SUMMARY | 2025-02-02 15:24 | XMS_ITS | Clinical Summary ---
Author Organization [address] [place] [address] Address [address] [place] [address] Phone Care Team Providers Care Nursing Associate Name Role Phone Ria Bryant MD Primary Care Provider [phone] Allergies No known active allergies Medications lancets [...] times a day before meals. 9 Active nitroglycerin (NITROSTAT) 0.4 mg SL tablet [...] Take 1-2 tablets daily as prescribed by [facility]. 180 tablet 3 5 Active metFORMIN XR (GLUCOPHAGE-XR ) 750 mg 24 hr tablet Take 1 tablet (750 mg total) by mouth 1 (one) time each day. Do not crush, chew, or split. PCP adjusted dose per pt dtr Active metFORMIN (GLUCOPHAGE) 500 mg tablet Take 2 tablets (1,000 mg total) by mouth 2 (two) times a day. 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 [address] [facility] [address] [place] [address] Garret Hendrickson MD Foot Swelling; exhaustion, feet swelling (Feet swelling ) 12/22/2024 7:20 PM EDT Ancillary Procedure [facility] [address] [place] [address] 12/14/2024 9:00 AM EDT Ancillary Procedure [facility] [address] [place] [address] Encounter for adjustment or management of cardiac device 12/11/2024 11:20 PM EDT Ancillary Procedure [facility] [address] [place] [address] 11/14/2024 Telephone [facility] [address] [place] [address] Garret Hendrickson MD Med Refill (Carvedilol ) 11/14/2024 Telephone [facility] [address] [place] [address] Garret Hendrickson MD Med Refill from Last [...] Coronary atherosclerosis of unspecified type of vessel, [place] or graft 06/09/2006 DX:Coronary atherosclerosis of unspecified type of vessel, [place] or graft; COMMENT: CT 1998 Alcohol abuse, unspecified 08/19/2006 DX:Al cohol [...] Care Team (Late st Contact Info) Description 02/22/2025 9:40 AM EDT [facility] [address] [facility] [address] [place] [address] Adilene Lindsey, YOKASTA [address] [place] [phone] 07/17/2025 8:30 AM EDT Ancillary Procedure [facility] [address] [place] [address] Health Maintenance Due Date Last Done Comments [...] this topic Medical Devices Implanted Type Area Corporate Travel Coordinator Device Identifier Shelf Expiration Date Model / Serial / Lot Medt-Card Oumou Gutierrez Dr [id number] Implanted:08/20 (Quantity not on file) Cardiac ICD MED[employer] - CARDIAC RHYTH-CRDM OUMOU Gutierrez DR [id number] / [id number] / Procedures Procedure Name Priority Date/Time Associated [...] period is included. Date Time Interrogation Session [id number] CV DEVICE CHECK Type Interrogation Session Remote CV DEVICE CHECK Implantable Pulse Generator Corporate Travel Coordinator MDT CV DEVICE CHECK Implantable Pulse Generator Type ICD CV DEVICE CHECK Implantable Pulse Generator Model Evera S [id number] CV DEVICE CHECK Implantable Pulse Generator Serial Number [id number] CV DEVICE CHECK Implantable Pulse Generator Implant Date 20150829 CV DEVICE CHECK Battery Remaining Longevity 13.0 CV DEVICE CHECK Battery Voltage 2.890 CV D EVICE CHECK Battery TRANSMITTER ENGINEER Trigger 2.727 CV DEVICE CHECK Battery Status Middle of Service CV DEVICE CHECK Capacitor Charge Time 4.174 CV DEVICE CHECK Leonard Statistic RA Percent Paced 91.36 CV DEVICE CHECK Leonard Statistic RV Percent Paced 1.29 CV DEVICE CHECK Atrial Tachy Statistic AT/AF Carrier Percent 0.00 CV DEVICE CHECK Lead Channel [...] Result * CARDIAC DEVICE CHECK- [facility] (12/14/2024 8:51 AM EDT) Date Time Interrogation Session [id number] CV DEVICE CHECK Implantable Pulse Generator Corporate Travel Coordinator MDT CV DEVICE CHECK Implantable Pulse Generator Type ICD CV DEVICE CHECK Implantable Pulse Generator Model Oumou Gutierrez [id number] CV DEVICE CHECK Implantable Pulse Generator Serial Number [id number] CV DEVICE CHECK Implantable Pulse Generator Implant Date 20150829 CV DEVICE CHECK Battery Remaining Longevity 7.0 CV DEVICE CHECK Battery Status Middle of Service CV DEVICE CHECK Leonard Statistic RA Percent Paced 95.50 CV DEVICE CHECK Leonard Statistic RV Percent Paced 2.70 CV DEVICE CHECK Atrial Tachy Statistic AT/AF Carrier Percent 0.10 CV DEVICE CHECK Lead Channel [...] Annual BMP Blood Test (03/10/2024) Pathologist [facility] Annual BMP Blood Test abstracted Result [facility] Provider HEALTH MAINTENANCE Final Result * Urine Albumin Creatinine Ratio (05/01/2019) Pathologist [facility] Urine Albumin Creatinine Ratio abstracted Result [facility] Provider HEALTH MAINTENANCE Final Result * (ABNORMAL) Hemoglobin A1c (09/22/2018) [facility] Hemoglobin A1C 8.2(A) <=6.5 % Blood Venous blood specimen / Unknown Result [facility] Provider LAB BLOOD ORDERABLES Gini l Result * Lipid panel (05/09/2018) [facility] LDL/HDL Ratio 3 0 - 4 Triglycerides 65 0 - 150 mg/dL Cholesterol 146 0 - 200 mg/dL HDL 52 >=40 mg/dL LDL Cholesterol 81 0 - 100 mg/dL Blood Venous blood specimen / Unknown us Historical Provider LAB BLOOD ORDERABLES Gini montemayor Result from Last 3 Months or Most Recently Relevant to Health Maintenance Insurance [facility] Care Teams Nursing Associate Relationship Specialty Start Date End Date Ria Bryant MD [address] [place] [address] PCP - General Internal Medicine 08/23/24
--- OUTSIDE RECORDS SUMMARY | 2025-02-02 15:24 | XMS_ITS | Encounter Summary ---
Author Organization [facility] [place] [address] Care Team Providers Care Hl7 Interface Developer Name Role Phone Ria Bryant MD Primary Care Provider [phone] Reason for Visit * Reason Onset Date Comments Foot Swelling 01/17/2025 exhaustion, feet swelling 01/17/2025 Feet s welling Encounter Details Date Type Department Care Team (Late st Contact Info) Description 01/17/2025 Telephone [facility] [address] [facility] [address] [place] [address] Garret Hendrickson MD [address] [facility] [address] [place] [address] Foot Swelling; exhaustion, feet swelling (Feet swelling ) Social History Tobacco Use Types Packs/Day [...] on file documented as of this encounter Progress Notes * Adrienne Villanueva MA - 02/02/2025 3:05 PM EDT Left message to call back to discuss call further * Tania Van - 02/02/2025 2:48 PM EDT Spoke with the patients daughter leatha and scheduled for 02/22/25 with Adilene Lindsey. While he was at [facility] ER he was evaluated for a heart attack and nothing was found. He is still having a lot of fatigue and shortness of breathe. Please call her back at [phone]. * Yolande Mauricio - 02/02/2025 10:20 AM EDT Patients daughter Leatha is returning call to schedule a hospital follow up, is aware of a call back. * Adilene Lindsey NP - 02/01/2025 9:35 AM EDT Thank you for the update * Adrienne Villanueva MA - 01/31/2025 4:40 PM EDT He's presently at [facility] at this time. Leatha pts dtr ended up bringing him to the hosp * Adilene Lindsey NP - 01/31/2025 4:20 PM EDT Yes ok to use either of those slots * Lucia Teixeira RN - 01/30/2025 3:54 PM EDT Please review encounter May we use a 10:10 am or 2:10 pm spot ? * DARRYN Vicente - 01/30/2025 3:21 PM EDT Sounds like a triage visit should be scheduled. * Lucia Teixeira RN - 01/30/2025 3:02 PM EDT PCP DANIEL 12.28.24 scanned into EPIC PT refused to go to ER on 01.17.25 Pt dtr on contact list stated pt continues to remain fatigued. SOB with exertion and exhausted withminimal effort. Edema at ankles Dtr not sure about PND, Orthopnea Lightheaded at times with position changes Metformin dose adjusted by PCP to 750 mg daily. Med module updated NO new meds, no missed meds, no recent illness Drinks about 2-3 bottles of water daily, aware pt needs to increase water intake Does not drink caffeine or alcohol beverages. Dtr asking for pacemaker to be adjusted due to pt being sedentary. Dtr mentioned that Dr Carrillo changed it twice a year. I did let pt know that device clinic is monitoring device. * Haley Mccrary - 01/30/2025 2:42 PM EDT Pt`s daughter called Judy, states that Pt has more issues with exhaustion and feet swelling Shahbazenm * Adilene Lindsey NP - 01/17/2025 2:51 PM EDT Absolutely recommend ER * Adrienne Villanueva MA - 01/17/2025 2:25 PM EDT Called reviewed with warp splitter. Dtr reports patient feeling lethargic, dizziness that patient describes as drunk feeing, tired, in bed all Wednesday, no appetite, leg swelling that has increased since last Wednesday. Also, not a good color; looking grayish . Total of 5 days since both daughters have seen his health declined; he doesn't want to go to the ERbut they're going to try to get him to the [facility]. * Yolande Mauricio - 01/17/2025 2:17 PM EDT Patients daughter called, for the last 5 days he has been lethargic, feet are swelling and states he feels drunk . He cannot walk very far and has to return home which his daughter says is unlike him, and is looking a bit dur[place] as well. Please return her call at [phone]. documented in this encounter Plan of Treatment Upcoming Encounters Date Type Department Care Team (Late st Contact Info) Description 02/22/2025 9:40 AM EDT Office Visit [facility] [address] [facility] [address] [place] [phone] Adilene Lindsey NP 300 [facility] [address] [place] [address] 07/17/2025 8:30 AM EDT Ancillary Procedure [facility] [address] [facility] [address] [place] [phone] documented as of this encounter Visit Diagnoses Not on filedocumented in this encounter Discontinued Medications Medication Sig Discontinue Reason Start Date End Da te metFORMIN (GLUCOPHAGE) 500 mg tablet Take 2 tablets (1,000 mg total) by mouth 2 (two) times a day. Dose adjustment 06/27/2023 01/30/2025 documented as of this encounter Historical Medications * This list may reflect changes made after this encounter. metFORMIN XR (GLUCOPHAGE-XR) 750 mg 24 hr tablet Take 1 tablet (750 mg total) by mouth 1 (one) time each day. Do not crush, chew, or split. PCP adjusted dose per pt dtr added in this encounter Care Teams Hl7 Interface Developer Relationship Specialty Start Date End Date Ria Bryant MD [address] [place] [address] PCP - General Internal Medicine 08/23/24 documented as of this encounter
--- OUTSIDE RECORDS SUMMARY | 2025-02-02 15:25 | XMS_ITS | Patient Health Record ---
Author Organization [facility] Address [address] [place] [address] Care Team Providers Care Software Project Manager Name Role Phone Annette GUNDERSON, Ria Primary Care Provider Rainer Schaffer Jr [phone] Results Component Value Reference Range Notes Prothrombin Time INR Reviewed date:03/22/2024 08:14:46 AM Interpretation: Performing Lab:[facility], [address] [place] [phone] Notes/Report: Prothrombin Time 17.3 11.1-13.3 [employer] [...] Pathology Reviewed date:03/30/2024 11:36:05 AM Interpretation: Performing Lab:[facility], [address] [place] [phone] Notes/Report: --- Name: Krishna Beckham Age/Sex: 83/M : 1940 Unit#: [id number] Attend Dr: Christin Ortiz Re03/20/24 Status : DIS IN Location: [facility] 469-1 Disch: 03/23/24 --- SPEC : [id number] RECD : 03/24/24 STATUS: JAMAL LEWIS NUM: [id number] ROSENDA: 03/22/24-[address]: Rainer Roa MD [...] Beckham homer Age/Sex: 83/M : 1940 Unit#: [id number] Attend Dr: Christin Ortiz Re03/20/24 Status : DIS IN Location: [facility] 469-1 Disch: 03/23/24 --- SPEC : [id number] RECD : 03/24/2436 STATUS: JAMAL RECintia NUM: [id number] ROSENDA: 03/22/24-[address]: Rainer Roa MD ENTERED: 03/24/24 45 SP TYPE: Surgical OTHR DR: Christin Ortiz SMITHA S MD ORDERED: HE Stain/3, Gross Micro L4, IHC, Special st. 2, H. pylori, AB/PAS Copies To: Christin Ortiz [address] [place] [address] Rainer Roa MD [facility] [address] [place] [address] RIA WOO MD [address] [place], [place] [id number] --- Signed (signature on file) Sherie Lynn 03/27/24 1332 (signature on file) Gerardo Anderson MD 03/28/24 1039 --- END OF REPORT Reason For Referral No Information Problems Problem Type SNOMED Code ICD Code Onset Dates Problem Status W/U Status Risk Notes Problem Iron deficiency anemia (D50.9) Active confirmed Problem Gastritis (7979486) Gastritis (K29.70) Active confirmed Encounters Encounter Location Date Provider Diagnosis [facility] [place] [address] [place], [place] [id number] 03/22/2024 Rainer Roa Jr [facility] [address] [place] [address] 03/22/2024 Rainer Roa Jr [facility] [address] [place] [address] 03/30/2024 Rainer Roa Jr Plan Of Treatment No Information Insurance Providers Payer Name Payer Address Payer Phone Subscriber Number Group Number Insured Name Patient Relationship to Insured Coverage Start Date Coverage End Date MEDICARE OF [place] [address] [place] [address] [id number] SOREN BECKHAM Self - patient is the insured MED[employer] ATTN CLAIMS [address] [place] [address] [id number] SOREN BECKHAM Self - patient is the insured
--- OUTSIDE RECORDS SUMMARY | 2025-02-02 15:25 | XMS_ITS ---
Author Organization [facility] Address [address] [place] [address] Care Team Providers Care Smokehouse Operator Name Role Phone Annette GUNDERSON, Ria Primary Care Provider Boyd Roa Jr, Rainer Aaron [phone] REASON FOR VISIT pathology Encounters Encounter Location Date Provider Diagnosis [facility] [address] [place] [address] 03/30/2024 Rainer Roa Jr Plan Of Treatment No Information Progress Notes * KERMIT BECKHAMODOB: [birth year] (83 yo M)Acc No.[id number]:03/30/2024 Patient:?SOREN BECKHAM :1940???Age:83 Y???Sex:Male Address:[address] [place] [address], [facility] [place], [address] * true * Date:? Generated for Lisa tyler/Aliya/eTransmitting on:?02/02/2025 03:13 PM EDT
--- OUTSIDE RECORDS SUMMARY | 2025-02-02 15:25 | XMS_ITS ---
Author Organization [facility] Address [address] [place] [address] Care Team Providers Care Associate Justice Name Role Phone Ria Bryant MD Primary Care Provider Rainer Schaffer Jr Unavailable REASON FOR VISIT GI BLEED Encounters Encounter Location Date Provider Diagnosis [facility] Inpatient [address] [place], [place] [phone] 03/22/2024 Rainer Roa Jr Plan Of Treatment No Information Progress Notes * KERMIT BECKHAMODOB: [birth year] (84 yo M)Acc No.[id number]:03/22/2024 EGD and COL/MAC Patient:?SOREN BECKHAM Provider:?Rainer Roa MD :1940???Age:83 Y???Sex:Male Lizandro e:03/22/2024 Address:[address] [place], [place] [id number] Pcp:Ria Bryant MD Subjective: * Chief Complaints: [...] MD Date:?0 03/22/2024 Generated for Lisa tyler/Aliya/eTransmitting on:?02/02/2025 03:24 PM EDT
[2025-02-02 16:00] VITALS: BP 154/85; PULSE 66; RESP 13; TEMP 36.3; O2SAT 99
[2025-02-02] MEDS: Magnesium Sulfate/H2O 2 GM/50 ML PIGGYBACK IV (16:28)
[2025-02-02 16:38] LABS: Appearance Urine Clear; Color Urine Yellow; Glucose Urine UA Negative (Negative); Leukocyte Esterase Urine Negative (Negative); Nitrite Urine Negative (Negative); Urine Blood Negative (Negative); Urine Ketones Negative (Negative); Urine Protein Negative (Neg-Trace)
[2025-02-02 17:17] LABS: INTERNATIONAL NORM RATIO 3.3 (0.9-1.1); Prothrombin Time 38.2 SEC (10.9-12.4)
--- NOTE | 2025-02-02 17:56 | PC.NURSE ---
A & O from home with complaints of dizziness and weakness. States was seen last week at [facility]- records from [facility] obtained and given to . Daughter at bedside
[2025-02-02 18:00] VITALS: BP 137/72; PULSE 60; RESP 15; TEMP 36.4; O2SAT 98
[2025-02-02 19:03] VITALS: BP 137/72; PULSE 60; RESP 15; TEMP 36.4; O2SAT 98
== END 2025-02-02 19:03 | disposition home or self-care (01) ==
PROVIDERS: Physician Assistant; Emergency Provider Emergency Medicine; PCP Internal Medicine
DX: R53.1 Weakness (principal); E83.42 Hypomagnesemia; R94.31 Abnormal electrocardiogram [ECG] [EKG]; Z79.899 Other long term (current) drug therapy; Z51.81 Encounter for therapeutic drug level monitoring; Z03.818 Encounter for observation for suspected exposure to other biological agents ruled out
CPT/HCPCS: 0241U; 36415; 71045; 80048; 80076; 81003; 83735; 84484; 85025; 85610; 93005; 96365; 96366; 99284; 99285; J3475

== ENCOUNTER → 2025-02-02 13:05 | Outpatient (BNV) | payer MEDICARE, SELFPAY | PROVIDERS: PCP Internal Medicine; Visit Provider Radiology Diagnostic Radiology | DX: I70.0 Atherosclerosis of aorta (principal) | CPT/HCPCS: 71045 ==

== ENCOUNTER → 2025-02-02 13:05 | Outpatient (BNV) | payer MEDICARE, SELFPAY | PROVIDERS: Emergency Provider Emergency Medicine; PCP Internal Medicine; Visit Provider Internal Medicine Cardiovascular Disease | DX: I45.9 Conduction disorder, unspecified (principal) | CPT/HCPCS: 93010 ==

== ENCOUNTER 2025-02-09 08:44 | Outpatient (AMB) | payer MEDICARE, SELFPAY ==
--- OUTSIDE RECORDS SUMMARY | 2025-02-09 08:59 | XMS_ITS | Encounter Summary ---
Author Organization [facility] Address [address] [place] [address] Care Team Providers Care Crossing Supervisor Name Role Phone Ria Bryant MD Primary Care Provider [phone] Reason for Visit * Reason Onset Date Comments Foot Swelling 01/17/2025 exhaustion, feet swelling 01/17/2025 Feet s welling Encounter Details Date Type Department Care Team (Late st Contact Info) Description 01/17/2025 Telephone [facility] [address] [facility] [address] [place] [phone] Garret Hendrickson MD [address] [facility] [address] [place] [address] Foot Swelling; exhaustion, feet swelling (Feet swelling [...] Progress Notes * Adrienne Villanueva MA - 02/05/2025 4:15 PM EDT If delmy Gardner dtr called, can you please arrange f/u per Jaleel's orders below please. Thank you * Adilene Lindsey NP - 02/05/2025 3:37 PM EDT I can see him at 110 or 310 on Wednesday * Christin Soni MA - 02/05/2025 7:16 AM EDT No new alerts or events have come through on his remote. Any changes made during last device check were temporary to do the device testing and he left at the same settings he came in with so I do notbelieve it is in relation to his device FYI. * Adrienne Villanueva MA - 02/02/2025 3:56 PM EDT C/o fatigue, feeling lethargic SOB . He had some adjustments made to his device during his last visit here. Hosp recs FOR Device, Can you check for any alerts ?? He's not feeling well, spending a lot of time in bed. This is not the norm for him. He was d/c homes. He walks 2-3 miles and he has not been able to do that since December. For the past three weeks he's declined; confused and just tired he describs as feeling drunk I dont have air Seeing PCP on Wednesday afternoon. * Adrienne Villanueva MA - 02/02/2025 3:05 PM EDT Left message to call back to discuss call further * Tania Van - 02/02/2025 2:48 PM EDT Spoke with the patients daughter leatha and scheduled for 02/22/25 with Adilene Lindsey. While he was at [facility] he was evaluated for a heart attack and nothing was found. He is still having a lot of fatigue and shortness of breathe. Please call her back at [phone]. * Yolande Mauricio - 02/02/2025 10:20 AM EDT Patients daughter Leatha is returning call to schedule a hospital follow up, is aware of a call back. * Adilene Lindsey NP - 02/01/2025 9:35 AM EDT Thank you for the update * Adrienne Villanueva MA - 01/31/2025 4:40 PM EDT He's presently at [facility] at this time. Leatha, pts dtr ended up bringing him to [...] more issues with exhaustion and feet swelling Mateo * Adilene Lindsey NP - 01/17/2025 2:51 PM EDT Absolutely recommend ER * Adrienne Villanueva MA - 01/17/2025 2:25 PM EDT Called reviewed with nuclear physicist. Dtr reports patient feeling lethargic, dizziness that [...] to try to get him to the hosp. * Yolande Mauricio - 01/17/2025 2:17 PM EDT Patients daughter called, for the last 5 days he has been lethargic, feet are swelling and states he feels drunk . He cannot walk very far and has to return home which his daughter says is unlike him, and is looking a bit [place] as well. Please return her call at [phone]. documented in this encounter Plan of Treatment Upcoming Encounters Date Type Department Care Team (Late st Contact Info) Description 07/17/2025 8:30 AM EDT Ancillary Procedure [facility] [address] [address] documented as of this encounter Visit [...] split. PCP adjusted dose per pt dtr 02/08/2025 added in this encounter Care Teams Crossing Supervisor Relationship Specialty Start Date End Date Ria Bryant MD [address] [place] [address] PCP - General Internal Medicine 08/23/24 documented as of this encounter
--- NOTE | 2025-02-09 09:20 | MHC.OFFVISCO ---
Intake Intake Visit Reasons: Anticoagulation Allergies isosorbide Adverse Reaction (Unknown, Verified 02/09/25 09:09) dizziness Medication List - Last Reconciled 02/09/25 by Aster Gates RN atorvastatin 40 mg PO DAILY carvedilol 12.5 mg PO BID furosemide 20 mg PO DAILY glipizide 10 mg PO BID lisinopril 10 mg PO DAILY magnesium oxide 400 mg PO BID metformin 1,000 mg PO BID nitroglycerin 0.4 mg sublingual DAILY omeprazole 20 mg PO DAILY@0630 30 days sacubitril-valsartan 24-26 mg (Entresto) 1 tab PO BID warfarin 5 mg See Protocol PO DAILY@1800 Nursing Note INR: 2.1 in therapeutic range Medications and supplements reviewed May start insulin - he will or his daughter will notify [facility] No changes in diet, medications, or supplements, Denies any signs and symptoms of bleeding or bruising or clotting. Bleeding, bruising, clotting discussed Nutritional guidance given Dose: 5MG X 2 DAYS/ 7.5MG X 5 DAYS F/U INR: 2 WEEKS Patient verbalizes understanding of instructions given Anti-Coag Initial Assessment Social Hx Patient Tobacco Use Status: Never used Tobacco alcohol intake: former Alcohol intake frequency: does not drink Cardiovascular Hx: HTN, Angina, SC, Arrhythmias, Cardiomyopathy and Other Endocrine Hx: Diabetes Blood Disorder Hx: Hyperlipidemia Hx: Kidney Disease Cancer HX: No Psych. Illness/Depression: Yes Coding Level of Care Code Est Patient Level 1 Diagnoses Current use of anticoagulant therapy Z79.01 Results AMB INR Fingerstick AMB INR Fingerstick 2.1 Last Edit by Aster Gates RN on 02/09/25 09:16 MANUAL ENTRY Assessment & Plan Assessment & Plan (1) Current use of anticoagulant therapy: Code(s): Z79.01 - intermediate (current) use of anticoagulants
[2025-02-09 09:31] LABS: Prothrombin Time Whole Bld POC 25.3 sec (11.1-13.5); ~PT, ~INR - Anti Coag Clinic 2.1 (0.9-1.1)
== END 2025-02-09 09:23 | disposition home or self-care (01) ==
LOC: HO.ACS 08:44
PROVIDERS: PCP Internal Medicine; Visit Provider Internal Medicine Medical Oncology
DX: Z79.01 Long term (current) use of anticoagulants (principal)

== ENCOUNTER → 2025-02-09 08:44 | Outpatient (BNVA) | payer MEDICARE, SELFPAY | PROVIDERS: PCP Internal Medicine; Visit Provider Internal Medicine Medical Oncology | DX: I48.0 Paroxysmal atrial fibrillation (principal); Z79.01 Long term (current) use of anticoagulants; Z51.81 Encounter for therapeutic drug level monitoring | CPT/HCPCS: 85610; 99211 ==

== ENCOUNTER 2025-02-23 08:46 | Outpatient (AMB) | payer MEDICARE, SELFPAY ==
--- OUTSIDE RECORDS SUMMARY | 2025-02-23 09:01 | XMS_ITS | Clinical Summary ---
Author Organization [address] [place] [address] [place] [phone] Phone Care Team Providers Care Ekg Tech Name Role Phone Ria Bryant MD Primary Care Provider [phone] Allergies No known active allergies Medications lancets [...] a day. 180 tablet 1 5 Active Additional Information Patient taking differently: 800 mgoral 2 times daily, Reported on 02/08/2025 carvediloL (COREG) 12.5 mg tablet Take 1 tablet (12.5 mg total) by mouth 2 (two) times a day with meals. 180 tablet 2 5 Active warfarin (COUMADIN) 5 mg tablet Take 1-2 tablets daily as prescribed by [facility]. 180 tablet 3 5 Active aspirin 81 mg EC tablet Take 1 tablet (81 mg total) by mouth 1 (one) time each day. Active insulin glargine (LANTUS) 100 unit/mL injection Inject 10 Units under the skin at bedtime. Active metFORMIN (GLUCOPHAGE) 500 mg tablet Take 2 tablets (1,000 mg total) by mouth 2 (two) times a day with meals. Active metFORMIN (GLUCOPHAGE) 500 mg tablet Take 2 tablets (1,000 mg total) by mouth 2 (two) times a day. 3 01/31/20 25 Discontin ued(Dose adjustmen t) metFORMIN XR (GLUCOPHAGE-XR ) 750 mg 24 hr tablet Take 1 tablet (750 mg total) by mouth 1 (one) time each day. Do not crush, chew, or split. PCP adjusted dose per pt dtr 02/09/20 25 Discontin ued(Formu travis change) Active Problems Problem Noted Date Diagnosed Date Atrial fibrillation (CMS/HCC V24, CMS/HCC V28) 0 03/18/2023 Overview (06/27/2024): Last Assessment & Plan: Currently anticoagulated without any unusual bleeding his device would suggest that he is rarely in atrial fibrillation and if so it appears to be a very short duration. Continue stroke prophylaxis did provide the name of [place] if his insurance company would be less [...] Orders: ECG 12 lead HTN (hypertension) 03/18/2023 Assessment & Plan (02/08/2025 3:33 PM EDT): Well-controlled during today's exam with a reading of 110/70. I have made no changes to his medications and he will continue on his current dose of lisinopril and carvedilol. Ischemic cardiomyopathy 03/18/2023 Overview (06/27/2024): Last Assessment [...] No telephonic monitoring - no landline Dr. Kevin Revised 2015 Assessment & Plan (08/23/2024 12:06 PM EST): He continues to follow closely with our device clinic. Last remote device download from May 2024 revealed predominantly atrial pacing and normal device function. Hyperlipidemia 08/22/2006 Assessment & Plan (02/08/2025 3:33 PM EDT): Continue his current dose of statin therapy. Goal LDL less than 70. Can consider updating fasting lipid profile prior to his next in office visit last already performed by his PCP. Coronary artery disease 06/09/2006 Overview (06/27/2024): OR 1998 stent LAD 2004 EF 45% Last [...] for new medications but he flatly declines. Assessment & Plan (02/08/2025 3:33 PM EDT): Patient does endorse episodes of extreme fatigue and shortness of breath. We did begin discussing stress testing to further evaluate for ischemia however the patient became agitated and left. I did explain to the daughter she can just reach out to our office once her father calms down and they are able to have a conversation about what he would like to do moving forward. Encounters Date Type Department Care Team Description 02/08/2025 1:10 PM EDT Office Visit [facility] - [address] [place] [address] Adilene Lindsey NP Primary hypertension (Primary Dx); Coronary artery disease due to lipid rich plaque; Hyperlipidemia, unspecified hyperlipidemia type 01/17/2025 Telephone [facility] - [address] [place] [address] Garret Hendrickson MD Foot Swelling; exhaustion, feet swelling (Feet swelling ) 12/22/2024 7:20 PM EDT Ancillary Procedure [facility] - [address] [place] [address] 12/14/2024 9:00 AM EDT Ancillary Procedure [facility] - [address] [facility] [address] [place] [address] Encounter for adjustment or management of cardiac device 12/11/2024 11:20 PM EDT Ancillary Procedure [facility] - [facility] [address] [facility] [address] [place] [address] from Last 3 Months Immunizations Name Administration [...] Coronary atherosclerosis of unspecified type of vessel, [place] or graft 06/09/2006 DX:Coronary atherosclerosis of unspecified type of vessel, [place] or graft; COMMENT: OR 1998 Alcohol abuse, unspecified 08/19/2006 DX:Al cohol abuse, unspecified Type II or unspecified type diabetes mellitus without mention of complication, uncontrolled 08/22/2006 DX:Type II or unspecified t ype diabetes mellitus without mention of complication, uncontrolled Heart disease, unspecified DX:He art disease, unspecified Hyperlipidemia 08/22/2006 DX:Hyperlipidemi a HTN (hypertension) 03/18/2023 DX:HTN (hyper tension) Fatigue Malaise Family History Medical History Relation Name Comments [...] Sign Reading Time Taken Comments Blood Pressure 110/70 02/08/2025 1:14 PM EDT Pulse 76 02/08/2025 1:14 PM EDT Temperature - - Respiratory Rate - - Oxygen Saturation 98% 02/08/2025 1:14 PM EDT Inhaled Oxygen Concentration - - Weight 64.4 kg (142 lb) 02/08/2025 1:14 PM EDT Height 165.1 cm (5' 5 ) 08/23/2024 7:54 AM EST Body Mass Index 23.63 08/23/2024 7:54 AM EST Plan of Treatment Upcoming Encounters Date Type Department Care Team (Late st Contact Info) Description 07/17/2025 8:30 AM EDT Ancillary Procedure [facility] - [address] [facility] [address] [place] [address] Health Maintenance Due Date Last [...] this topic Medical Devices Implanted Type Area Business Risk Consultant Device Identifier Shelf Expiration Date Model / Serial / Lot Medt-Card Oumou Gutierrez Dr [id number] Implanted:08/20 (Quantity not on file) Cardiac ICD MEDTRONIC - CARDIAC RHYTH-CRDM OUMOU Gutierrez DR [id number] / [id number] / Procedures Procedure Name Priority Date/Time Associated [...] period is included. Date Time Interrogation Session [id number] CV DEVICE CHECK Type Interrogation Session Remote CV DEVICE CHECK Implantable Pulse Generator Business Risk Consultant MDT CV DEVICE CHECK Implantable Pulse Generator Type ICD CV DEVICE CHECK Implantable Pulse Generator Model Oumou Gutierrez DR [id number] CV DEVICE CHECK Implantable Pulse Generator Serial Number [id number] CV DEVICE CHECK Implantable Pulse Generator Implant Date 20150829 CV DEVICE CHECK Battery Remaining Longevity 13.0 CV DEVICE CHECK Battery Voltage 2.890 CV D EVICE CHECK Battery PAVING BED MAKER Trigger 2.727 CV DEVICE CHECK Battery Status Middle of CV DEVICE CHECK Capacitor Charge Time 4.174 CV DEVICE CHECK Leonard Statistic RA Percent Paced 91.36 CV DEVICE CHECK Leonard Statistic RV Percent Paced 1.29 CV DEVICE CHECK Atrial Tachy Statistic AT/AF [place] Percent 0.00 CV DEVICE CHECK Lead Channel [...] Result * CARDIAC DEVICE CHECK- IN CLINIC- [facility] (12/14/2024 8:51 AM EDT) Date Time Interrogation Session [id number] CV DEVICE CHECK Implantable Pulse Generator Business Risk Consultant MDT CV DEVICE CHECK Implantable Pulse Generator Type ICD CV DEVICE CHECK Implantable Pulse Generator Model Evera S [id number] CV DEVICE CHECK Implantable Pulse Generator Serial Number [id number] CV DEVICE CHECK Implantable Pulse Generator Implant Date 20150829 CV DEVICE CHECK Battery Remaining Longevity 7.0 CV DEVICE CHECK Battery Status Middle of Service CV DEVICE CHECK Leonard Statistic RA Percent Paced 95.50 CV DEVICE CHECK Leonard Statistic RV Percent Paced 2.70 CV DEVICE CHECK Atrial Tachy Statistic AT/AF [place] Percent 0.10 CV DEVICE CHECK Lead Channel [...] * Annual BMP Blood Test (03/10/2024) Pathologist [facility] Annual BMP Blood Test abstracted Historical Provider HEALTH MAINTENANCE Final Result * Urine Albumin Creatinine Ratio (05/01/2019) Pathologist [facility] Urine Albumin Creatinine Ratio abstracted Historical Provider HEALTH MAINTENANCE Final Result * (ABNORMAL) Hemoglobin A1c (09/22/2018) [facility] [address] Hemoglobin A1C 8.2(A) <=6.5 % Blood Venous blood specimen / Unknown [facility] Provider LAB BLOOD ORDERABLES Gini l Result * Lipid panel (05/09/2018) [facility] [address] LDL/HDL Ratio 3 0 - 4 Triglycerides 65 0 - 150 mg/dL Cholesterol 146 0 - 200 mg/dL HDL 52 >=40 mg/dL LDL Cholesterol 81 0 - 100 mg/dL Blood Venous blood specimen / Unknown [facility] Provider LAB BLOOD ORDERABLES Gini l Result from Last 3 Months or Most Recently Relevant to Health Maintenance Insurance MEDICARE [facility] Care Teams Ekg Tech Relationship Specialty Start Date End Date Ria Bryant MD [address] [place] [address] PCP - General Internal Medicine 08/23/24
[2025-02-23 09:14] LABS: Prothrombin Time Whole Bld POC 18.1 sec (11.1-13.5); ~PT, ~INR - Anti Coag Clinic 1.5 (0.9-1.1)
--- NOTE | 2025-02-23 09:25 | MHC.OFFVISCO ---
Intake Intake Visit Reasons: Anticoagulation Allergies isosorbide Adverse Reaction (Unknown, Verified 02/23/25 09:06) dizziness Medication List - Last Reconciled 02/23/25 by Aster Gates RN atorvastatin 40 mg PO DAILY blood sugar diagnostic (FreeStyle Precision Henrique Strips) As directed blood-glucose sensor (FreeStyle Iwlian 3 Plus Sensor device) As directed blood-glucose,comprehensive ophthalmologist,cont (FreeStyle Wilian 3 [place]) As directed carvedilol 12.5 mg PO BID furosemide 20 mg PO DAILY glipizide 10 mg PO BID insulin glargine (Basaglar KwikPen U-100 Insulin) units subcut lisinopril 10 mg PO DAILY magnesium oxide 400 mg PO BID metformin ER 750 mg PO BID nitroglycerin 0.4 mg sublingual DAILY omeprazole 20 mg PO DAILY@30 30 days sacubitril-valsartan 24-26 mg (Entresto) 1 tab PO BID warfarin 5 mg See Protocol PO DAILY@1800 Nursing Note INR: 1.5 OUT OF therapeutic range Medications and supplements reviewed STARTED INSULIN FOR ABOUT 3-4 DAYS AND DOES NOT LIKE IT - HE WILL TRY TO KEEP IT BUT IF HE DOES NOT FEEL BETTER HE WILL STOP IT, HAS NOT CHECKED HIS BLOOD SUGARS EITHER -WEARING A BLOOD-GLUCOSE SENSOR POSSIBLE CHANGE IN BLOOD SUGARS AFFECTING INR No changes in diet, or supplements, Denies any signs and symptoms of bleeding or bruising or clotting. Bleeding, bruising, clotting discussed Nutritional guidance given Dose: INCREASE WEEKLY DOSE 7.5MG X 6 DAYS/ 5MG X 1 DAYS F/U INR: 1 WEEK Patient verbalizes understanding of instructions given Anti-Coag Initial Assessment Social Hx Patient Tobacco Use Status: Never used Tobacco alcohol intake: former Alcohol intake frequency: does not drink Cardiovascular Hx: HTN, Angina, [place], Arrhythmias, Cardiomyopathy and Other Endocrine Hx: Diabetes Blood Disorder Hx: Hyperlipidemia Hx: Kidney Disease Cancer HX: No Psych. Illness/Depression: Yes Coding Level of Care Code Est Patient Level 1 Diagnoses Current use of anticoagulant therapy Z79.01 Results AMB INR Fingerstick AMB INR Fingerstick 1.5 Last Edit by Aster Gates RN on 02/23/25 09:15 MANUAL ENTRY Assessment & Plan Assessment & Plan (1) Current use of anticoagulant therapy: Code(s): Z79.01 - group home (current) use of anticoagulants
== END 2025-02-23 09:29 | disposition home or self-care (01) ==
LOC: HO.ACS 08:46
PROVIDERS: PCP Internal Medicine; Visit Provider Internal Medicine Medical Oncology
DX: Z79.01 Long term (current) use of anticoagulants (principal)

== ENCOUNTER → 2025-02-23 08:46 | Outpatient (BNVA) | payer MEDICARE, SELFPAY | PROVIDERS: PCP Internal Medicine; Visit Provider Internal Medicine Medical Oncology | DX: I48.0 Paroxysmal atrial fibrillation (principal); Z79.01 Long term (current) use of anticoagulants; Z51.81 Encounter for therapeutic drug level monitoring | CPT/HCPCS: 85610; 99211 ==

== ENCOUNTER 2025-03-02 08:49 | Outpatient (AMB) | payer MEDICARE, SELFPAY ==
--- OUTSIDE RECORDS SUMMARY | 2025-03-02 09:03 | XMS_ITS | Clinical Summary ---
Author Organization [address] [place] [address] [place] [phone] Phone Care Team Providers Care Paperhanger Contractor Name Role Phone Ria Bryant MD Primary Care Provider [phone] Allergies No known active allergies Medications lancets [...] Take 1-2 tablets daily as prescribed by [facility]. 180 tablet 3 5 Active aspirin 81 mg EC tablet Take 1 tablet (81 mg total) by mouth 1 (one) time each day. Active insulin glargine (LANTUS) 100 unit/mL injection Inject 10 Units under the skin at bedtime. Active metFORMIN (GLUCOPHAGE) 500 mg tablet Take 2 tablets (1,000 mg total) by mouth 2 (two) times a day with meals. Active metFORMIN XR (GLUCOPHAGE-XR ) 750 mg 24 hr tablet Take 1 tablet (750 mg total) by mouth 1 (one) time each day. Do not crush, chew, or split. PCP adjusted dose per pt dtr 02/09/20 25 Discontin ued(Formu travis change) Active Problems Problem Noted Date Diagnosed Date Atrial fibrillation ([facility] V24, [facility] V28) 0 03/18/2023 Overview (06/27/2024): Last [...] PCP. Coronary artery disease 06/09/2006 Overview (06/27/2024): [place] 1998 stent LAD 2004 EF 45% Last [...] Encounters Date Type Department Care Team Description 02/27/2025 3:50 PM EDT Ancillary Procedure [facility] - [address] [place] [address] Arrived 02/08/2025 1:10 PM EDT Office Visit [facility] - [address] [place] [address] Adilene Lindsey NP Primary hypertension (Primary Dx); Coronary artery disease due to lipid rich plaque; Hyperlipidemia, unspecified hyperlipidemia type 01/17/[address] [facility] [address] [place] [address] Garret Hendrickson MD Foot Swelling; exhaustion, feet swelling (Feet swelling ) 12/22/2024 7:20 PM EDT Ancillary Procedure [facility] - [address] [place] [address] 12/14/2024 9:00 AM EDT Ancillary Procedure [facility] - [facility] [address] [facility] [address] [place] [address] Encounter for adjustment or management of cardiac device 12/11/2024 11:20 PM EDT Ancillary Procedure [facility] - [facility] [address] [facility] [address] [place] [address] from Last 3 Months Immunizations Name Administration [...] Coronary atherosclerosis of unspecified type of vessel, [place] or graft 06/09/2006 DX:Coronary atherosclerosis of unspecified type of vessel, [place] or graft; COMMENT: [place] 1999 Alcohol abuse, unspecified 08/19/2006 DX:Al cohol [...] Description 07/17/2025 8:30 AM EDT Ancillary Procedure [facility] - [address] [facility] [address] [place] [address] Health Maintenance Due Date Last [...] this topic Medical Devices Implanted Type Area Lime Plant Operator Device Identifier Shelf Expiration Date Model / Serial / Lot Medt-Card Oumou Gutierrez Dr [id number] Implanted:08/20 (Quantity not on file) Cardiac ICD MEDTRONIC - CARDIAC RHYTH-CRDM OUMOU Gutierrez DR, [id number] / [id number] / Procedures Procedure Name Priority Date/Time Associated Diagnosis Comments CARDIAC DEVICE CHECK- REMOTE- MURJ Routine 02/27/2025 3:49 PM EDT CARDIAC DEVICE CHECK- REMOTE- MURJ Routine 12/22/2024 [...] * Cardiac device check - Remote- MURJ (02/27/2025 3:49 PM EDT) Only the most recent of3 resultswithin the time period is included. Date Time Interrogation Session [id number] CV DEVICE CHECK Type Interrogation Session Remote CV DEVICE CHECK Implantable Pulse Generator Lime Plant Operator MDT CV DEVICE CHECK Implantable Pulse Generator Type ICD CV DEVICE CHECK Implantable Pulse Generator Model Oumou Gutierrez DR [id number] CV DEVICE CHECK Implantable Pulse Generator Serial Number [id number] CV DEVICE CHECK Implantable Pulse Generator Implant Date 20150829 CV DEVICE CHECK Battery Remaining Longevity 5.0 CV DEVICE CHECK Battery Voltage 2.850 CV D EVICE CHECK Battery FAMILY AND CONSUMER SCIENCES PROFESSOR Trigger 2.727 CV DEVICE CHECK Battery Status Middle of Service CV DEVICE CHECK Capacitor Charge Time 4.314 CV DEVICE CHECK Leonard Statistic RA Percent Paced 96.83 CV DEVICE CHECK Leonard Statistic RV Percent Paced 4.17 CV DEVICE CHECK Atrial Tachy Statistic AT/AF [place] Percent 0.00 CV DEVICE CHECK Lead Channel Sensing Intrinsic Amplitude 1.625 CV DEVICE CHECK Lead Channel Setting Sensing Sensitivity 0.45 CV DEVICE CHECK Lead Channel Impedance Value 399 CV DEVICE CHECK Lead Channel Pacing Threshold Amplitude 0.500 CV DEVICE CHECK Lead Channel Pacing Threshold Pulse Width 0.4 CV DEVICE CHECK Lead Channel RA Pacing Threshold Date 2025-02-18 CV DEVICE CHECK Lead Channel Setting Pacing Amplitude 1.000 CV DEVICE CHECK Lead Channel Setting Pacing Pulse Width 0.4 CV DEVICE CHECK Lead Channel Sensing Intrinsic Amplitude 8.250 CV DEVICE CHECK Lead Channel Setting Sensing Sensitivity 0.30 CV DEVICE CHECK Lead Channel Impedance Value 342 CV DEVICE CHECK Lead Channel Pacing Threshold Amplitude 0.875 CV DEVICE CHECK Lead Channel Pacing Threshold Pulse Width 0.4 CV DEVICE CHECK Lead Channel RV Pacing Threshold Date 2025-02-24 CV DEVICE CHECK Lead Channel Setting Pacing [...] 0 CV DEVICE CHECK RV HV Impedance 57 CV D EVICE CHECK Zone Setting Type [...] 6 CV DEVICE CHECK Date of Service 2025-03-13 CV DEVICE CHECK Anatomical Region Laterality Modality Device Interroga tion 02/25/2025 12:2 2 AM EDT Impressions 02/27/2025 3:42 PM EDT Normal Remote: No Events * Normal Device Function * Alerts or events: None * Battery: OK, 5 mos * Sensing, impedance and thresholds reviewed * Programmed parameters reviewed * Presenting rhythm reviewed * Heart Rate Histograms reviewed * No significant changes noted Additional Notes: * scheduled monthly monitoring for LAHAJI Narrative Procedure Note Benja Brown MD - 02/27/2025 IMPRESSION: Normal Remote: No Events * Normal Device Function * Alerts or events: None * Battery: OK, 5 mos * Sensing, impedance and thresholds reviewed * Programmed parameters reviewed * Presenting rhythm reviewed * Heart Rate Histograms reviewed * No significant changes noted Additional Notes: * scheduled monthly monitoring for ALHAJI Benja Brown MD CV IMPLANTABLE CARDIAC DEVICE PROCEDURES Final Result * CARDIAC DEVICE CHECK- [facility] (12/14/2024 8:51 AM EDT) Date Time Interrogation Session [id number] CV DEVICE CHECK Implantable Pulse Generator Lime Plant Operator MDT CV DEVICE CHECK Implantable Pulse Generator Type ICD CV DEVICE CHECK Implantable Pulse Generator Model Evera S [id number] CV DEVICE CHECK Implantable Pulse Generator Serial Number [id number] CV DEVICE CHECK Implantable Pulse Generator Implant Date 20150829 CV DEVICE CHECK Battery Remaining Longevity 7.0 CV DEVICE CHECK Battery Status Middle of Service CV DEVICE CHECK Leonard Statistic RA Percent Paced 95.50 CV DEVICE CHECK Leonard Statistic RV Percent Paced 2.70 CV DEVICE CHECK Atrial Tachy Statistic AT/AF [place] Percent 0.10 CV DEVICE CHECK Lead Channel [...] * Annual BMP Blood Test (03/10/2024) Pathologist [facility] Annual BMP Blood Test abstracted Result [facility] Provider HEALTH MAINTENANCE Final Result * Urine Albumin Creatinine Ratio (05/01/2019) Pathologist [facility] Urine Albumin Creatinine Ratio abstracted Result [facility] Provider HEALTH MAINTENANCE Final Result * (ABNORMAL) Hemoglobin A1c (09/22/2018) [facility] Hemoglobin A1C 8.2(A) <=6.5 % Blood Venous blood specimen / Unknown Result [facility] Provider LAB BLOOD ORDERABLES Gini l Result * Lipid panel (05/09/2018) [facility] LDL/HDL Ratio 3 0 - 4 Triglycerides 65 0 - 150 mg/dL Cholesterol 146 0 - 200 mg/dL HDL 52 >=40 mg/dL LDL Cholesterol 81 0 - 100 mg/dL Blood Venous blood specimen / Unknown Result [facility] Provider LAB BLOOD ORDERABLES Gini l Result from Last 3 Months or Most Recently Relevant to Health Maintenance Insurance MEDICARE [facility] Care Teams Paperhanger Contractor Relationship Specialty Start Date End Date Ria Bryant MD [address] [place] [address] PCP - General Internal Medicine 08/23/24
[2025-03-02 09:04] LABS: Prothrombin Time Whole Bld POC 19.1 sec (11.1-13.5); ~PT, ~INR - Anti Coag Clinic 1.6 (0.9-1.1)
--- NOTE | 2025-03-02 09:10 | MHC.OFFVISCO ---
Intake Intake Visit Reasons: Anticoagulation Allergies isosorbide Adverse Reaction (Unknown, Verified 03/02/25 08:54) dizziness Medication List - Last Reconciled 03/02/25 by Aster Gates RN atorvastatin 40 mg PO DAILY blood sugar diagnostic (FreeStyle Precision Henrique Strips) As directed blood-glucose sensor (FreeStyle Wilian 3 Plus Sensor device) As directed blood-glucose,detacker,cont (FreeStyle Wilian 3 [place]) As directed carvedilol 12.5 mg PO BID furosemide 20 mg PO DAILY insulin glargine (Basaglar KwikPen U-100 Insulin) 8 units subcut QAM lisinopril 10 mg PO DAILY magnesium oxide 400 mg PO BID metformin ER 750 mg PO BID nitroglycerin 0.4 mg sublingual DAILY PRN omeprazole 20 mg PO DAILY@0630 30 days sacubitril-valsartan 24-26 mg (Entresto) 1 tab PO BID warfarin 5 mg See Protocol PO DAILY@1800 Nursing Note pt inuslin up to 8units and off glipizide - inuslin may lower INR INR: 1.6 in therapeutic range Medications and supplements reviewed No changes in health, diet, medications, or supplements, Denies any signs and symptoms of bleeding or bruising or clotting. Bleeding, bruising, clotting discussed Nutritional guidance given Dose: 10mg today then increase to 7.5mg daily F/U INR: weekly until INR 2.0 or higher Patient verbalizes understanding of instructions given Anti-Coag Initial Assessment Social Hx Patient Tobacco Use Status: Never used Tobacco alcohol intake: former Alcohol intake frequency: does not drink Cardiovascular Hx: HTN, Angina, [place], Arrhythmias, Cardiomyopathy and Other Endocrine Hx: Diabetes Blood Disorder Hx: Hyperlipidemia Hx: Kidney Disease Cancer HX: No Psych. Illness/Depression: Yes Coding Level of Care Code Est Patient Level 1 Diagnoses Current use of anticoagulant therapy Z79.01 Results AMB INR Fingerstick AMB INR Fingerstick 1.6 Last Edit by Aster Gates RN on 03/02/25 09:07 MANUAL ENTRY Assessment & Plan Assessment & Plan (1) Current use of anticoagulant therapy: Code(s): Z79.01 - formula bottler (current) use of anticoagulants
== END 2025-03-02 09:19 | disposition home or self-care (01) ==
LOC: HO.ACS 08:49
PROVIDERS: PCP Internal Medicine; Visit Provider Internal Medicine Medical Oncology
DX: Z79.01 Long term (current) use of anticoagulants (principal)

== ENCOUNTER → 2025-03-02 08:49 | Outpatient (BNVA) | payer MEDICARE, SELFPAY | PROVIDERS: PCP Internal Medicine; Visit Provider Internal Medicine Medical Oncology | DX: I48.0 Paroxysmal atrial fibrillation (principal); Z79.01 Long term (current) use of anticoagulants; Z51.81 Encounter for therapeutic drug level monitoring | CPT/HCPCS: 85610; 99211 ==

== ENCOUNTER 2025-03-09 08:45 | Outpatient (AMB) | payer MEDICARE, SELFPAY ==
--- OUTSIDE RECORDS SUMMARY | 2025-03-09 08:48 | XMS_ITS | Clinical Summary ---
Author Organization [address] [place] [address] [place] [phone] Phone Care Team Providers Care Juvenile Corrections Officer Name Role Phone Ria Bryant MD Primary Care Provider [phone] Allergies No known active allergies Medications lancets [...] Take 1-2 tablets daily as prescribed by [place] [facility]. 180 tablet 3 5 Active [...] Problem Noted Date Diagnosed Date Atrial fibrillation ([facility] V24, [facility] V28) 0 03/18/2023 Overview (06/27/2024): [...] PCP. Coronary artery disease 06/09/2006 Overview (06/27/2024): [place] 1998 stent LAD 2004 EF 45% Last [...] Description 02/27/2025 3:50 PM EDT Ancillary Procedure [facility] [address] [place] [address] 02/08/2025 1:10 PM EDT Office Visit [facility] [address] [place] [address] Adilene Lindsey NP Primary hypertension (Primary Dx); Coronary artery disease due to lipid rich plaque; Hyperlipidemia, unspecified hyperlipidemia type 01/17/2025 Telephone [facility] [address] [place] [address] Garret Hendrickson MD Foot Swelling; exhaustion, feet swelling (Feet swelling ) 12/22/2024 7:20 PM EDT Ancillary Procedure [facility] [address] [place] [address] 12/14/2024 9:00 AM EDT Ancillary Procedure [facility] [address] [facility] [address] [place] [address] Encounter for adjustment or management of cardiac device 12/11/2024 11:20 PM EDT Ancillary Procedure [facility] [address] [facility] [address] [place] [address] from Last 3 Months Immunizations Name Administration [...] Coronary atherosclerosis of unspecified type of vessel, [place] or graft 06/09/2006 DX:Coronary atherosclerosis of unspecified type of vessel, [place] or graft; COMMENT: [place] 1998 Alcohol abuse, unspecified 08/19/2006 DX:Al cohol [...] Description 07/17/2025 8:30 AM EDT Ancillary Procedure [facility] [address] [facility] [address] [place] [address] Health Maintenance Due Date Last Done Comments [...] this topic Medical Devices Implanted Type Area Exec. Creative Director Device Identifier Shelf Expiration Date Model / Serial / Lot Medt-Card Oumou Gutierrez Dr [id number] Implanted:08/20 (Quantity not on file) Cardiac ICD MEDTR[employer]IC - CARDIAC RHYTH-CRDM OUMOU Gutierrez DR, [id number] / [id number] / Procedures Procedure Name Priority Date/Time Associated [...] period is included. Date Time Interrogation Session [id number] CV DEVICE CHECK Type Interrogation Session Remote CV DEVICE CHECK Implantable Pulse Generator Exec. Creative Director MDT CV DEVICE CHECK Implantable Pulse Generator Type ICD CV DEVICE CHECK Implantable Pulse Generator Model Oumou Gutierrez DR, [id number] CV DEVICE CHECK Implantable Pulse Generator Serial Number [id number] CV DEVICE CHECK Implantable Pulse Generator Implant Date 20150829 CV DEVICE CHECK Battery Remaining Longevity 5.0 CV DEVICE CHECK Battery Voltage 2.850 CV D EVICE CHECK Battery HARD CANDY SPINNER Trigger 2.727 CV DEVICE CHECK Battery Status [...] Notes: * scheduled monthly monitoring for ALHAJI Narrative Procedure Note Benja Brown MD - [...] Result * CARDIAC DEVICE CHECK- IN CLINIC- [facility] [place] [place] (12/14/2024 8:51 AM EDT) Date Time Interrogation Session [id number] CV DEVICE CHECK Implantable Pulse Generator Exec. Creative Director MDT CV DEVICE CHECK Implantable Pulse Generator Type ICD CV DEVICE CHECK Implantable Pulse Generator Model Evera S [id number] CV DEVICE CHECK Implantable Pulse Generator Serial Number [id number] CV DEVICE CHECK Implantable Pulse Generator Implant [...] * Annual BMP Blood Test (03/10/2024) Pathologist [facility] Annual BMP Blood Test abstracted Result [facility] Provider HEALTH MAINTENANCE Final Result * Urine Albumin Creatinine Ratio (05/01/2019) Pathologist [facility] Urine Albumin Creatinine Ratio abstracted Result [facility] Provider HEALTH MAINTENANCE Final Result * (ABNORMAL) Hemoglobin A1c (09/22/2018) [facility] Hemoglobin A1C 8.2(A) <=6.5 % Blood Venous blood specimen / Unknown Result [facility] Provider LAB BLOOD ORDERABLES Gini l Result * Lipid panel (05/09/2018) [facility] LDL/HDL Ratio 3 0 - 4 Triglycerides 65 0 - 150 mg/dL Cholesterol 146 0 - 200 mg/dL HDL 52 >=40 mg/dL LDL Cholesterol 81 0 - 100 mg/dL Blood Venous blood specimen / Unknown Result [facility] Provider LAB BLOOD ORDERABLES Gini l Result from Last 3 Months or Most Recently Relevant to Health Maintenance Insurance MEDICARE [facility] Care Teams Juvenile Corrections Officer Relationship Specialty Start Date End Date Ria Bryant MD [id number] [place] [address] PCP - General Internal Medicine 08/23/24
[2025-03-09 08:55] LABS: ~PT, ~INR - Anti Coag Clinic 3.2 (0.9-1.1)
--- NOTE | 2025-03-09 08:59 | MHC.OFFVISCO ---
Intake Intake Visit Reasons: Anticoagulation Allergies isosorbide Adverse Reaction (Unknown, Verified 03/09/25 08:50) dizziness Medication List - Last Reconciled 03/09/25 by Sherie Ramirez RN atorvastatin 40 mg PO DAILY blood sugar diagnostic (FreeStyle Precision Henrique Strips) As directed blood-glucose sensor (FreeStyle Wilian 3 Plus Sensor device) As directed blood-glucose,motor and generator brush cutter,cont (FreeStyle Wilian 3 [place]) As directed carvedilol 12.5 mg PO BID furosemide 20 mg PO DAILY insulin glargine (Basaglar KwikPen U-100 Insulin) 8 units subcut QAM lisinopril 10 mg PO DAILY magnesium oxide 400 mg PO BID metformin ER 750 mg PO BID nitroglycerin 0.4 mg sublingual DAILY PRN omeprazole 20 mg PO DAILY@0630 30 days sacubitril-valsartan 24-26 mg (Entresto) 1 tab PO BID warfarin 5 mg See Protocol PO DAILY@1800 Nursing Note INR: 3.2 out of therapeutic range of 2-3 Medications and supplements reviewed No changes in health, diet, medications, or supplements, Denies any signs and symptoms of bleeding or bruising or clotting. Bleeding, bruising, clotting discussed Nutritional guidance given to have a serving of greens today Dose: 7.5mg X 6 days and 5mg X 1 day (Wed) F/U INR: 1 week Patient verbalizes understanding of instructions given Anti-Coag Initial Assessment Social Hx Patient Tobacco Use Status: Never used Tobacco alcohol intake: former Alcohol intake frequency: does not drink Cardiovascular Hx: HTN, Angina, [place], Arrhythmias, Cardiomyopathy and Other Endocrine Hx: Diabetes Blood Disorder Hx: Hyperlipidemia Hx: Kidney Disease Cancer HX: No Psych. Illness/Depression: Yes Coding Level of Care Code Est Patient Level 1 Diagnoses Current use of anticoagulant therapy Z79.01 Results AMB INR Fingerstick AMB INR Fingerstick 3.2 Last Edit by Sherie Ramirez RN on 03/09/25 08:54 interface delay Assessment & Plan Assessment & Plan (1) Current use of anticoagulant therapy: Code(s): Z79.01 - longterm (current) use of anticoagulants
== END 2025-03-09 09:01 | disposition home or self-care (01) ==
LOC: HO.ACS 08:45
PROVIDERS: PCP Internal Medicine; Visit Provider Internal Medicine Medical Oncology
DX: Z79.01 Long term (current) use of anticoagulants (principal)

== ENCOUNTER → 2025-03-09 08:45 | Outpatient (BNVA) | payer MEDICARE, SELFPAY | PROVIDERS: PCP Internal Medicine; Visit Provider Internal Medicine Medical Oncology | DX: I48.0 Paroxysmal atrial fibrillation (principal); Z79.01 Long term (current) use of anticoagulants; Z51.81 Encounter for therapeutic drug level monitoring | CPT/HCPCS: 85610; 99211 ==

== ENCOUNTER 2025-03-16 09:12 | Outpatient (AMB) | payer MEDICARE, SELFPAY ==
[2025-03-16 09:30] LABS: Prothrombin Time Whole Bld POC 62.8 sec (11.1-13.5); ~PT, ~INR - Anti Coag Clinic 5.2 (0.9-1.1)
--- OUTSIDE RECORDS SUMMARY | 2025-03-16 09:32 | XMS_ITS | Clinical Summary ---
Author Organization [address] [place] [address] [place] [phone] Phone Care Team Providers Care Epic Radiant Analyst Name Role Phone Ria Bryant MD Primary Care Provider [phone] Allergies No known active allergies Medications lancets [...] Take 1-2 tablets daily as prescribed by [place] [facility]. 180 tablet 3 5 Active aspirin 81 mg EC tablet Take 1 tablet (81 mg total) by mouth 1 (one) time each day. Active insulin glargine (LANTUS) 100 unit/mL injection Inject 10 Units under the skin at bedtime. Active metFORMIN (GLUCOPHAGE) 500 mg tablet Take 2 tablets (1,000 mg total) by mouth 2 (two) times a day with meals. 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 Coronary artery disease 06/09/2006 Overview (06/27/2024): [place] 1998 stent LAD 2004 EF 45% Last [...] Description 02/27/2025 3:50 PM EDT Ancillary Procedure [facility] Cardiology [facility] [address] [place] [address] 02/08/2025 1:10 PM EDT Office Visit [facility] - [address] [place] [address] Adilene Lindsey NP Primary hypertension (Primary Dx); Coronary artery disease due to lipid rich plaque; Hyperlipidemia, unspecified hyperlipidemia type 01/17/2025 Telephone [facility] - [address] [place] [address] Garret Hendrickson MD Foot Swelling; exhaustion, feet swelling (Feet swelling ) 12/22/2024 7:20 PM EDT Ancillary Procedure [facility] [address] [facility] [address] [place] [address] 12/14/2024 9:00 AM EDT Ancillary Procedure [facility] - [facility] [address] [facility] [address] [place] [address] Encounter for adjustment or management of cardiac device from Last 3 Months Immunizations Name Administration [...] Coronary atherosclerosis of unspecified type of vessel, [place] or graft 06/09/2006 DX:Coronary atherosclerosis of unspecified type of vessel, [place] or graft; COMMENT: [place] 1998 Alcohol abuse, unspecified 08/19/2006 DX:Al cohol [...] Description 07/17/2025 8:30 AM EDT Ancillary Procedure [facility] [address] [facility] [address] [place] [address] Health Maintenance Due Date Last [...] this topic Medical Devices Implanted Type Area Dust Collector Operator Device Identifier Shelf Expiration Date Model / Serial / Lot Medt-Card Oumou Gutierrez Dr, [id number] Implanted:08/20 (Quantity not on file) Cardiac ICD MEDTRONIC - CARDIAC RHYTH-CRDM OUMOU Gutierrez DR, [id number] / [id number] / Procedures Procedure Name Priority Date/Time Associated Diagnosis Comments CARDIAC DEVICE CHECK- REMOTE- [facility] Routine 02/27/2025 3:49 PM EDT CARDIAC DEVICE CHECK- REMOTE- [facility] Routine 12/22/2024 7:17 PM EDT CARDIAC DEVICE CHECK- IN CLINIC- [facility] Routine 12/14/2024 8:51 AM EDT Encounter for adjustment or management of cardiac device ANNUAL BMP BLOOD TEST Routine 03/10/2024 URINE ALBUMIN CREATININE RATIO Routine 05/01/2019 HEMOGLOBIN A1C Routine 09/22/2018 LIPID PANEL Routine 05/09/2018 from Last 3 Months or Most Recently Relevant to Health Maintenance Results * Cardiac device check - Remote- [facility] (02/27/2025 3:49 PM EDT) Only the most recent of2 resultswithin the time period is included. Date Time Interrogation Session [id number] CV DEVICE CHECK Type Interrogation Session Remote CV DEVICE CHECK Implantable Pulse Generator Dust Collector Operator MDT CV DEVICE CHECK Implantable Pulse Generator Type ICD CV DEVICE CHECK Implantable Pulse Generator Model Oumou Matt MENDIOLA [id number] CV DEVICE CHECK Implantable Pulse Generator Serial Number [id number] CV DEVICE CHECK Implantable Pulse Generator Implant Date 20150829 CV DEVICE CHECK Battery Remaining Longevity 5.0 CV DEVICE CHECK Battery Voltage 2.850 CV D EVICE CHECK Battery UNIVERSITY TUTOR Trigger 2.727 CV DEVICE CHECK Battery Status Middle of Service CV DEVICE CHECK Capacitor Charge Time 4.314 CV DEVICE CHECK Leonard Statistic RA Percent Paced 96.83 CV DEVICE CHECK Leonard Statistic RV Percent Paced 4.17 CV DEVICE CHECK Atrial Tachy Statistic AT/AF [place] Percent 0.00 CV DEVICE CHECK Lead Channel [...] Result * CARDIAC DEVICE CHECK- [place] [facility] [place] (12/14/2024 8:51 AM EDT) Date Time Interrogation Session [id number] CV DEVICE CHECK Implantable Pulse Generator Dust Collector Operator MDT CV DEVICE CHECK Implantable Pulse Generator Type ICD CV DEVICE CHECK Implantable Pulse Generator Model Evera S [id number] CV DEVICE CHECK Implantable Pulse Generator Serial Number [id number] CV DEVICE CHECK Implantable Pulse Generator Implant Date 20150829 CV DEVICE CHECK Battery Remaining Longevity 7.0 CV DEVICE CHECK Battery Status Middle of Service CV DEVICE CHECK Leonard Statistic RA Percent Paced 95.50 CV DEVICE CHECK Leonard Statistic RV Percent Paced 2.70 CV DEVICE CHECK Atrial Tachy Statistic AT/AF [place] Percent 0.10 CV DEVICE CHECK Lead Channel [...] Result * Urine Albumin Creatinine Ratio (05/01/2019) Urine Albumin Creatinine Ratio abstracted Historical Provider HEALTH MAINTENANCE Final Result * (ABNORMAL) Hemoglobin A1c (09/22/2018) Hemoglobin A1C 8.2(A) <=6.5 % Blood Venous blood specimen / Unknown [facility] Provider LAB BLOOD ORDERABLES Gini l Result * Lipid panel (05/09/2018) LDL/HDL Ratio 3 0 - 4 Triglycerides 65 0 - 150 mg/dL Cholesterol 146 0 - 200 mg/dL HDL 52 >=40 mg/dL LDL Cholesterol 81 0 - 100 mg/dL Blood Venous blood specimen / Unknown [facility] Provider LAB BLOOD ORDERABLES Gini l Result from Last 3 Months or Most Recently Relevant to Health Maintenance Insurance MEDICARE [facility] Care Teams Epic Radiant Analyst Relationship Specialty Start Date End Date Ria Bryant MD [id number] [place] [address] PCP - General Internal Medicine 08/23/24
--- NOTE | 2025-03-16 09:35 | MHC.OFFVISCO ---
Intake Intake Visit Reasons: Anticoagulation Allergies isosorbide Adverse Reaction (Unknown, Verified 03/16/25 09:24) dizziness Medication List - Last Reconciled 03/16/25 by Sherie Ramirez RN atorvastatin 40 mg PO DAILY blood sugar diagnostic (FreeStyle Precision Henrique Strips) As directed blood-glucose sensor (FreeStyle Wilian 3 Plus Sensor device) As directed blood-glucose,outboard motorboat rigger,cont (FreeStyle Wilian 3 [place]) As directed carvedilol 12.5 mg PO BID furosemide 20 mg PO DAILY insulin glargine (Basaglar KwikPen U-100 Insulin) 8 units subcut QAM lisinopril 10 mg PO DAILY magnesium oxide 400 mg PO BID metformin ER 750 mg PO BID nitroglycerin 0.4 mg sublingual DAILY PRN omeprazole 20 mg PO DAILY@30 30 days sacubitril-valsartan 24-26 mg (Entresto) 1 tab PO BID warfarin 5 mg See Protocol PO DAILY@1800 Nursing Note INR: 5.2 out of therapeutic range of 2-3 Pt sent to lab for venous draw and INR 5.8 Medications and supplements reviewed, no changes Patient status: feels well Pt not sure what he had in his diet that may raise the INR. He said he took one and one half tabs everyday. He should have taken only one tab on Wednesday. Medications or supplements: no changes Diet: pt to try to have a serving of greens today but pt does not like Denies any signs and symptoms of bleeding or clotting or unusual bruising Bleeding, bruising, clotting discussed. Pt instructed to watch for signs of bleeding such as blood in the urine or stool, vomitting or coughing up blood. He knows to go to the ER if he hits his head even if he feels well. Dose: Pt took today's dose already so will hold warfarin tomorrow and next day F/U INR Date: Wed03/19/25?? Patient verbalizing understanding of instructions given. T/C to pcp Yessenia Simmons Md. Spoke to Jacklyn. Critical INR reported with dosing plan and next retest date. Anti-Coag Initial Assessment Social Hx Patient Tobacco Use Status: Never used Tobacco alcohol intake: former Alcohol intake frequency: does not drink Cardiovascular Hx: HTN, Angina, [place], Arrhythmias, Cardiomyopathy and Other Endocrine Hx: Diabetes Blood Disorder Hx: Hyperlipidemia Hx: Kidney Disease Cancer HX: No Psych. Illness/Depression: Yes Coding Level of Care Code Est Patient Level 2 Diagnoses Current use of anticoagulant therapy Z79.01 Time Spent (min) 30 Comment critical INR, pt sent to lab for venous draw to confirm, teaching done Assessment & Plan Assessment & Plan (1) Current use of anticoagulant therapy: Code(s): Z79.01 - longterm (current) use of anticoagulants Orders: Orders Prothrombin Time INR Today Z79.01 - extermination inspector (current) use of anticoagulants
== END 2025-03-16 10:34 | disposition home or self-care (01) ==
LOC: HO.ACS 09:12
PROVIDERS: PCP Internal Medicine; Visit Provider Internal Medicine Medical Oncology
DX: Z79.01 Long term (current) use of anticoagulants (principal)

== ENCOUNTER 2025-03-16 09:12 | Outpatient (REF) | payer MEDICARE, SELFPAY ==
[2025-03-16 10:08] LABS: Prothrombin Time 66.9 SEC (10.9-12.4)
[2025-03-16 10:10] LABS: INTERNATIONAL NORM RATIO 5.8 (0.9-1.1)
== END 2025-03-16 09:13 | disposition home or self-care (01) ==
LOC: HO.LAB 09:12
PROVIDERS: PCP Internal Medicine; Visit Provider Internal Medicine Medical Oncology
DX: Z79.01 Long term (current) use of anticoagulants (principal)
CPT/HCPCS: 36415; 85610; 99212

== ENCOUNTER 2025-03-19 10:08 | Outpatient (AMB) | payer MEDICARE, SELFPAY ==
[2025-03-19 10:25] LABS: Prothrombin Time Whole Bld POC 23.8 sec (11.1-13.5)
--- NOTE | 2025-03-19 10:29 | MHC.OFFVISCO ---
Intake Intake Visit Reasons: Anticoagulation Allergies isosorbide Adverse Reaction (Unknown, Verified 03/19/25 10:19) dizziness Medication List - Last Reconciled 03/19/25 by Sherie Ramirez RN atorvastatin 40 mg PO DAILY blood sugar diagnostic (FreeStyle Precision Henrique Strips) As directed blood-glucose sensor (FreeStyle Wilian 3 Plus Sensor device) As directed blood-glucose,restaurant greeter,cont (FreeStyle Wilian 3 [place]) As directed carvedilol 12.5 mg PO BID furosemide 20 mg PO DAILY insulin glargine (Basaglar KwikPen U-100 Insulin) 8 units subcut QAM lisinopril 10 mg PO DAILY magnesium oxide 400 mg PO BID metformin ER 750 mg PO BID nitroglycerin 0.4 mg sublingual DAILY PRN omeprazole 20 mg PO DAILY@629 30 days sacubitril-valsartan 24-26 mg (Entresto) 1 tab PO BID warfarin 5 mg See Protocol PO DAILY@1800 Nursing Note Pt to [facility] accompanied by daughter INR: 2.0 in therapeutic range of 2-3 Previous INR 5.8 on 03/16/25 and warfarin held 03/17/25 and 03/18/25. Medications and supplements reviewed: No changes Asked pt about Bactrim which was noted in his med list. It was ordered for a boil on left inner arm. Pt stated he never started it. Pt showed me the boil. It is pink/red and a little swollen. No changes in health, diet, medications, or supplements, Denies any signs and symptoms of bleeding or bruising or clotting. Bleeding, bruising, clotting discussed Nutritional guidance given Dose: 7.5mg X 6 days and 5mg X 1 day (Wed) F/U INR: 03/26/25 Patient verbalizes understanding of instructions given Anti-Coag Initial Assessment Social Hx Patient Tobacco Use Status: Never used Tobacco alcohol intake: former Alcohol intake frequency: does not drink Cardiovascular Hx: HTN, Angina, [place], Arrhythmias, Cardiomyopathy and Other Endocrine Hx: Diabetes Blood Disorder Hx: Hyperlipidemia Hx: Kidney Disease Cancer HX: No Psych. Illness/Depression: Yes Coding Level of Care Code Est Patient Level 1 Diagnoses Current use of anticoagulant therapy Z79.01 Results AMB INR Fingerstick AMB INR Fingerstick 2.0 Last Edit by Sherie Ramirez RN on 03/19/25 10:25 interface delay Assessment & Plan Assessment & Plan (1) Current use of anticoagulant therapy: Code(s): Z79.01 - intermediate project manager (current) use of anticoagulants
--- OUTSIDE RECORDS SUMMARY | 2025-03-19 10:45 | XMS_ITS | Clinical Summary ---
Author Organization [address] [place] [address] [place] [address] Phone Care Team Providers Care Landscaping Manager Name Role Phone Ria Bryant MD Primary Care Provider [phone] Allergies No known active allergies Medications lancets [...] Take 1-2 tablets daily as prescribed by [place] [facility]. 180 tablet 3 5 Active [...] Problem Noted Date Diagnosed Date Atrial fibrillation ([facility] V24, [facility] V28) 0 03/18/2023 Overview (06/27/2024): [...] adenoma, left 10/02/2018 DVT (deep venous thrombosis) ([facility] V24, CMS/H CC V28) 05/20/2018 Overview (06/27/2024): [...] (CMS/HCC V24, CMS/HCC V28) 07/10/2008 Ventricular tachyarrhythmia ([facility] V24, CMS/HC C V28) 07/10/2008 Overview (06/27/2024): [...] PCP. Coronary artery disease 06/09/2006 Overview (06/27/2024): [place] [...] Description 02/27/2025 3:50 PM EDT Ancillary Procedure [facility] Cardiology [facility] - [address] [place] [address] 02/08/2025 1:10 PM EDT Office Visit [facility] - [address] [place] [address] Adilene Lindsey NP Primary hypertension (Primary Dx); Coronary artery disease due to lipid rich plaque; Hyperlipidemia, unspecified hyperlipidemia type 01/17/[address] [facility] - [address] [place] [phone] Garret Hendrickson MD Foot Swelling; exhaustion, feet swelling (Feet swelling ) 12/22/2024 7:20 PM EDT Ancillary Procedure [facility] Associates - [facility] [address] [facility] [address] [place] [phone] from Last 3 Months Immunizations Name Administration [...] Coronary atherosclerosis of unspecified type of vessel, [place] or graft 06/09/2006 DX:Coronary atherosclerosis of unspecified type of vessel, [place] or graft; COMMENT: [place] 1999 Alcohol abuse, unspecified 08/19/2006 DX:Al cohol [...] Description 07/17/2025 8:30 AM EDT Ancillary Procedure [facility] Associates - [facility] [address] [facility] [address] [place] [address] Health Maintenance Due Date Last [...] this topic Medical Devices Implanted Type Area Delinquency Prevention Social Worker Device Identifier Shelf Expiration Date Model / Serial / Lot Medt-Card Oumou Gutierrez Dr [id number] Implanted:08/20 (Quantity not on file) Cardiac ICD [employer] - CARDIAC RHYTH-CRDM OUMOU Gutierrez DR [id number] / [id number] / Procedures Procedure Name Priority Date/Time Associated Diagnosis Comments CARDIAC DEVICE CHECK- REMOTE- MURJ Routine 02/27/2025 3:49 PM EDT CARDIAC DEVICE CHECK- REMOTE- MURJ Routine 12/22/2024 7:17 PM EDT ANNUAL BMP BLOOD TEST Routine 03/10/2024 URINE ALBUMIN CREATININE RATIO Routine 05/01/2019 HEMOGLOBIN A1C Routine 09/22/2018 LIPID PANEL Routine 05/09/2018 from Last 3 Months or Most Recently Relevant to Health Maintenance Results * Cardiac device check - Remote- MURJ (02/27/2025 3:49 PM EDT) Only the most recent of2 resultswithin the time period is included. Date Time Interrogation Session [id number] CV DEVICE CHECK Type Interrogation Session Remote CV DEVICE CHECK Implantable Pulse Generator Delinquency Prevention Social Worker MDT CV DEVICE CHECK Implantable Pulse Generator Type ICD CV DEVICE CHECK Implantable Pulse Generator Model Evera S [id number] CV DEVICE CHECK Implantable Pulse Generator Serial Number [id number] CV DEVICE CHECK Implantable Pulse Generator Implant Date 20150829 CV DEVICE CHECK Battery Remaining Longevity 5.0 CV DEVICE CHECK Battery Voltage 2.850 CV D EVICE CHECK Battery NETWORK SECURITY CONSULTANT Trigger 2.727 CV DEVICE CHECK Battery Status Middle of Service CV DEVICE CHECK Capacitor Charge Time 4.314 CV DEVICE CHECK Leonard Statistic RA Percent Paced 96.83 CV DEVICE CHECK Leonard Statistic RV Percent Paced 4.17 CV DEVICE CHECK Atrial Tachy Statistic AT/AF [place] Percent 0.00 CV DEVICE CHECK Lead Channel [...] Notes: * scheduled monthly monitoring for ALHAJI Result [facility] Benja Brown MD CV IMPLANTABLE CARDIAC DEVICE PROCEDURES Final Result * Annual BMP Blood Test (03/10/2024) Pathologist [facility] Annual BMP Blood Test abstracted Result [facility] Historical Provider HEALTH MAINTENANCE Final Result * Urine Albumin Creatinine Ratio (05/01/2019) Pathologist [facility] Urine Albumin Creatinine Ratio abstracted Result [facility] Historical Provider HEALTH MAINTENANCE Final Result * (ABNORMAL) Hemoglobin A1c (09/22/2018) [facility] Hemoglobin A1C 8.2(A) <=6.5 % Blood Venous blood specimen / Unknown Result [facility] Historical Provider LAB BLOOD ORDERABLES Gini l Result * Lipid panel (05/09/2018) [facility] LDL/HDL Ratio 3 0 - 4 Triglycerides 65 0 - 150 mg/dL Cholesterol 146 0 - 200 mg/dL HDL 52 >=40 mg/dL LDL Cholesterol 81 0 - 100 mg/dL Blood Venous blood specimen / Unknown Result [facility] Provider LAB BLOOD ORDERABLES Gini l Result from Last 3 Months or Most Recently Relevant to Health Maintenance Insurance MEDICARE [facility] Care Teams Landscaping Manager Relationship Specialty Start Date End Date Ria Bryant MD [address] [address] PCP - General Internal Medicine 08/23/24
== END 2025-03-19 10:36 | disposition home or self-care (01) ==
LOC: HO.ACS 10:08
PROVIDERS: PCP Internal Medicine; Visit Provider Internal Medicine Medical Oncology
DX: Z79.01 Long term (current) use of anticoagulants (principal)

== ENCOUNTER → 2025-03-19 10:08 | Outpatient (BNVA) | payer MEDICARE, SELFPAY | PROVIDERS: PCP Internal Medicine; Visit Provider Internal Medicine Medical Oncology | DX: I48.0 Paroxysmal atrial fibrillation (principal); Z79.01 Long term (current) use of anticoagulants; Z51.81 Encounter for therapeutic drug level monitoring | CPT/HCPCS: 85610; 99211 ==

== ENCOUNTER 2025-03-26 09:16 | Outpatient (AMB) | payer MEDICARE, SELFPAY ==
[2025-03-26 09:40] LABS: Prothrombin Time Whole Bld POC 20.6 sec (11.1-13.5); ~PT, ~INR - Anti Coag Clinic 1.7 (0.9-1.1)
--- OUTSIDE RECORDS SUMMARY | 2025-03-26 09:42 | XMS_ITS | Clinical Summary ---
Author Organization [address] [place] [address] [place] [phone] Phone Care Team Providers Care Garnett Machine Operator Helper Name Role Phone Ria Bryant MD Primary Care Provider [phone] Allergies No known active allergies Medications lancets [...] 1-2 tablets daily as prescribed by [place] [facility]. 180 tablet 3 5 Active [...] Problem Noted Date Diagnosed Date Atrial fibrillation ([facility] V24, [facility] V28) 0 03/18/2023 Overview (06/27/2024): Last [...] adenoma, left 10/02/2018 DVT (deep venous thrombosis) ([facility] V24, CMS/H CC V28) 05/20/2018 Overview [...] (CMS/HCC V24, CMS/HCC V28) 07/10/2008 Ventricular tachyarrhythmia ([facility] V24, CMS/HC C V28) 07/10/2008 Overview (06/27/2024): [...] PCP. Coronary artery disease 06/09/2006 Overview (06/27/2024): [place] 1998 stent LAD 2004 EF 45% Last [...] Description 02/27/2025 3:50 PM EDT Ancillary Procedure [facility] Cardiology [facility] - [address] [place] [address] 02/08/2025 1:10 PM EDT Office Visit [facility] - [address] [place] [address] Adilene Lindsey NP Primary hypertension (Primary Dx); Coronary artery disease due to lipid rich plaque; Hyperlipidemia, unspecified hyperlipidemia type 01/17/2025 Telephone [facility] - [address] [place] [address] Garret Hendrickson MD Foot Swelling; exhaustion, feet swelling (Feet swelling ) from Last 3 Months Immunizations Name Administration [...] Coronary atherosclerosis of unspecified type of vessel, [place] or graft 06/09/2006 DX:Coronary atherosclerosis of unspecified type of vessel, [place] or graft; COMMENT: [place] 1998 Alcohol abuse, unspecified 08/19/2006 DX:Al cohol [...] Description 07/17/2025 8:30 AM EDT Ancillary Procedure [facility] Associates - [facility] [address] [facility] [address] [place] [address] Health Maintenance Due Date Last [...] Annual BMP Blood Test 03/10/2025 03/10/2024, 03/10/2024 Influenza Vaccine (#1) 2025 4, 08/03/2023, 07/29/2022, Additional history exists DTaP,Tdap,and Td Vaccines (3 - Td or Tdap) 04/29/2033 04/29/2023, 09/02/2010 Pneumococcal Vaccine: 50+ Years Completed 09/09/2015, 07/18/2014, 11/29/2007, Additional history exists HIB Vaccines Aged Out [...] this topic Medical Devices Implanted Type Area Help Desk Support Specialist Device Identifier Shelf Expiration Date Model / Serial / Lot Medt-Card Oumou Gutierrez Dr [id number] Implanted:08/20 (Quantity not on file) Cardiac ICD [employer] - CARDIAC RHYTH-CRDM OUMOU Gutierrez DR [id number] / [id number] / Procedures Procedure Name Priority Date/Time Associated Diagnosis Comments CARDIAC DEVICE CHECK- REMOTE- MURJ Routine 02/27/2025 3:49 PM EDT ANNUAL BMP BLOOD TEST Routine 03/10/2024 URINE ALBUMIN CREATININE RATIO Routine 05/01/2019 HEMOGLOBIN A1C Routine 09/22/2018 LIPID PANEL Routine 05/09/2018 from Last 3 Months or Most Recently Relevant to Health Maintenance Results * Cardiac device check - Remote- MURJ (02/27/2025 3:49 PM EDT) Date Time Interrogation Session [id number] CV DEVICE CHECK Type Interrogation Session Remote CV DEVICE CHECK Implantable Pulse Generator Help Desk Support Specialist MDT CV DEVICE CHECK Implantable Pulse Generator Type ICD CV DEVICE CHECK Implantable Pulse Generator Model Evera S [id number] CV DEVICE CHECK Implantable Pulse Generator Serial Number [id number] CV DEVICE CHECK Implantable Pulse Generator Implant Date 20150829 CV DEVICE CHECK Battery Remaining Longevity 5.0 CV DEVICE CHECK Battery Voltage 2.850 CV D EVICE CHECK Battery TRIBAL COUNCIL MEMBER Trigger 2.727 CV DEVICE CHECK Battery Status Middle of Service CV DEVICE CHECK Capacitor Charge Time 4.314 CV DEVICE CHECK Leonard Statistic RA Percent Paced 96.83 CV DEVICE CHECK Leonard Statistic RV Percent Paced 4.17 CV DEVICE CHECK Atrial Tachy Statistic AT/AF [place] Percent 0.00 CV DEVICE CHECK Lead Channel [...] Result * Urine Albumin Creatinine Ratio (05/01/2019) HM Urine Albumin Creatinine Ratio abstracted [facility] Provider HEALTH MAINTENANCE Final Result * (ABNORMAL) Hemoglobin A1c (09/22/2018) Pathologist [facility] Hemoglobin A1C 8.2(A) <=6.5 % Blood Venous blood specimen / Unknown Result [facility] Provider LAB BLOOD ORDERABLES Gini l Result * Lipid panel (05/09/2018) Pathologist [facility] LDL/HDL Ratio 3 0 - 4 Triglycerides 65 0 - 150 mg/dL Cholesterol 146 0 - 200 mg/dL HDL 52 >=40 mg/dL LDL Cholesterol 81 0 - 100 mg/dL Blood Venous blood specimen / Unknown [facility] Provider LAB BLOOD ORDERABLES Gini l Result from Last 3 Months or Most Recently Relevant to Health Maintenance Insurance MEDICARE [facility] Care Teams Garnett Machine Operator Helper Relationship Specialty Start Date End Date Ria Bryant MD [address] [place] [address] PCP - General Internal Medicine 08/23/24
--- NOTE | 2025-03-26 09:45 | MHC.OFFVISCO ---
Intake Intake Visit Reasons: Anticoagulation Allergies isosorbide Adverse Reaction (Unknown, Verified 03/26/25 09:35) dizziness Medication List - Last Reconciled 03/26/25 by Sherie Ramirez RN atorvastatin 40 mg PO DAILY blood sugar diagnostic (FreeStyle Precision Henrique Strips) As directed blood-glucose sensor (FreeStyle Wilian 3 Plus Sensor device) As directed blood-glucose,hammer adjuster,cont (FreeStyle Wilian 3 [place]) As directed carvedilol 12.5 mg PO BID furosemide 20 mg PO DAILY insulin glargine (Basaglar KwikPen U-100 Insulin) 8 units subcut QAM lisinopril 10 mg PO DAILY magnesium oxide 400 mg PO BID metformin ER 750 mg PO BID nitroglycerin 0.4 mg sublingual DAILY PRN omeprazole 20 mg PO DAILY@0630 30 days sacubitril-valsartan 24-26 mg (Entresto) 1 tab PO BID warfarin 5 mg See Protocol PO DAILY@1800 Nursing Note Pt to [facility] accompanied by daughter INR: 1.7 out of therapeutic range of 2-3 Medications and supplements reviewed No changes in health, diet, medications, or supplements, Denies any signs and symptoms of bleeding or bruising or clotting. Bleeding, bruising, clotting discussed Nutritional guidance given to avoid greens today. Dose: increase today's dose to 10mg (7.5mg) then resume usual dose of 7.5mg X 6 days and 5mg X 1 day F/U INR: 1 week Patient verbalizes understanding of instructions given Anti-Coag Initial Assessment Social Hx Patient Tobacco Use Status: Never used Tobacco alcohol intake: former Alcohol intake frequency: does not drink Cardiovascular Hx: HTN, Angina, [place], Arrhythmias, Cardiomyopathy and Other Endocrine Hx: Diabetes Blood Disorder Hx: Hyperlipidemia Hx: Kidney Disease Cancer HX: No Psych. Illness/Depression: Yes Coding Level of Care Code Est Patient Level 1 Diagnoses Current use of anticoagulant therapy Z79.01 Results AMB INR Fingerstick AMB INR Fingerstick 1.7 Last Edit by Sherie Ramirez RN on 03/26/25 09:40 interface delay Assessment & Plan Assessment & Plan (1) Current use of anticoagulant therapy: Code(s): Z79.01 - buttermaker continuous churn (current) use of anticoagulants
== END 2025-03-26 09:48 | disposition home or self-care (01) ==
LOC: HO.ACS 09:16
PROVIDERS: PCP Internal Medicine; Visit Provider Internal Medicine Medical Oncology
DX: Z79.01 Long term (current) use of anticoagulants (principal)

== ENCOUNTER → 2025-03-26 09:16 | Outpatient (BNVA) | payer MEDICARE, SELFPAY | PROVIDERS: PCP Internal Medicine; Visit Provider Internal Medicine Medical Oncology | DX: I48.0 Paroxysmal atrial fibrillation (principal); Z79.01 Long term (current) use of anticoagulants; Z51.81 Encounter for therapeutic drug level monitoring | CPT/HCPCS: 85610; 99211 ==

== ENCOUNTER 2025-04-02 08:20 | Outpatient (AMB) | payer MEDICARE, SELFPAY ==
--- OUTSIDE RECORDS SUMMARY | 2025-04-02 08:22 | XMS_ITS | Patient Health Record ---
Author Organization [facility] Address [address] [place] [address] Care Team Providers Care Pipe Machine Operator Name Role Phone Ria Bryant MD Primary Care Provider Rainer Schaffer Jr Unavailable Reason For Referral No Information Problems Problem Type SNOMED Code ICD Code Onset Dates Problem Status W/U Status Risk Notes Problem Iron deficiency anemia (D50.9) Active confirmed Problem Gastritis (2864910) Gastritis (K29.70) Active confirmed Plan Of Treatment No Information Insurance Providers Payer Name Payer Address Payer Phone Subscriber Number Group Number Insured Name Patient Relationship to Insured Coverage Start Date Coverage End Date MEDICARE OF [place] [address] [place] [address] [id number] KERMIT BECKHAMO Self - patient is the insured MEDEX ATTN CLAIMS [address] [place] [address] [phone] [id number] 1 BECKHAM SOREN Self - patient is the insured
--- OUTSIDE RECORDS SUMMARY | 2025-04-02 08:22 | XMS_ITS | Clinical Summary ---
Author Organization [address] [place] [address] [place] [address] Phone Care Team Providers Care Utility Aide Name Role Phone Ria Bryant MD Primary Care Provider [phone] Allergies No known active allergies Medications lancets [...] Take 1-2 tablets daily as prescribed by [place] [facility]. 180 tablet 3 5 Active [...] Problem Noted Date Diagnosed Date Atrial fibrillation ([facility] V24, [facility] V28) 0 03/18/2023 Overview (06/27/2024): Last [...] adenoma, left 10/02/2018 DVT (deep venous thrombosis) ([facility] V24, CMS/H CC V28) 05/20/2018 Overview [...] (CMS/HCC V24, CMS/HCC V28) 07/10/2008 Ventricular tachyarrhythmia ([facility] V24, CMS/HC C V28) 07/10/2008 Overview [...] PCP. Coronary artery disease 06/09/2006 Overview (06/27/2024): [place] 1998 stent LAD 2004 EF 45% Last [...] Description 02/27/2025 3:50 PM EDT Ancillary Procedure [facility] Cardiology [facility] [address] [place] [address] 02/08/2025 1:10 PM EDT Office Visit [facility] - [address] [place] [address] Adilene Lindsey NP Primary hypertension (Primary Dx); Coronary artery disease due to lipid rich plaque; Hyperlipidemia, unspecified hyperlipidemia type 01/17/2025 Telephone [facility] - [address] [place] [address] Garret Hendrickson MD Foot Swelling; [...] Coronary atherosclerosis of unspecified type of vessel, [place] or graft 06/09/2006 DX:Coronary atherosclerosis of unspecified type of vessel, [place] or graft; COMMENT: [place] 1998 Alcohol abuse, unspecified 08/19/2006 DX:Al cohol [...] Description 07/17/2025 8:30 AM EDT Ancillary Procedure [facility] Cardiology Associates - [facility] [address] [facility] [address] [place] [address] Health Maintenance Due Date Last [...] this topic Medical Devices Implanted Type Area Healthcare Receptionist Device Identifier Shelf Expiration Date Model / Serial / Lot Medt-Card Oumou Gutierrez Dr [id number] Implanted:08/20 (Quantity not on file) Cardiac ICD [employer] - CARDIAC RHYTH-CRDM OUMOU Gutierrez DR [id number] / [id number] / Procedures Procedure Name Priority Date/Time Associated [...] 3:49 PM EDT) Date Time Interrogation Session [id number] CV DEVICE CHECK Type Interrogation Session Remote CV DEVICE CHECK Implantable Pulse Generator Healthcare Receptionist MDT CV DEVICE CHECK Implantable Pulse Generator Type ICD CV DEVICE CHECK Implantable Pulse Generator Model Evera S [id number] CV DEVICE CHECK Implantable Pulse Generator Serial Number [id number] CV DEVICE CHECK Implantable Pulse Generator Implant Date 20150829 CV DEVICE CHECK Battery Remaining Longevity 5.0 CV DEVICE CHECK Battery Voltage 2.850 CV D EVICE CHECK Battery STAFFING ADMINISTRATOR Trigger 2.727 CV DEVICE CHECK Battery Status Middle of Service CV DEVICE CHECK Capacitor Charge Time 4.314 CV DEVICE CHECK Leonard Statistic RA Percent Paced 96.83 CV DEVICE CHECK Leonard Statistic RV Percent Paced 4.17 CV DEVICE CHECK Atrial Tachy Statistic AT/AF [place] Percent 0.00 CV DEVICE CHECK Lead Channel [...] (05/01/2019) HM Urine Albumin Creatinine Ratio abstracted [facility] Provider HEALTH MAINTENANCE Final Result * (ABNORMAL) Hemoglobin A1c (09/22/2018) Pathologist [facility] Hemoglobin A1C 8.2(A) <=6.5 % Blood Venous blood specimen / Unknown Result [facility] Provider LAB BLOOD ORDERABLES Gini l Result * Lipid panel (05/09/2018) Pathologist [facility] LDL/HDL Ratio 3 0 - 4 Triglycerides 65 0 - 150 mg/dL Cholesterol 146 0 - 200 mg/dL HDL 52 >=40 mg/dL LDL Cholesterol 81 0 - 100 mg/dL Blood Venous blood specimen / Unknown [facility] Provider LAB BLOOD ORDERABLES Gini l Result from Last 3 Months or Most Recently Relevant to Health Maintenance Insurance MEDICARE [facility] Care Teams Utility Aide Relationship Specialty Start Date End Date Ria Bryant MD [address] [place] [address] PCP - General Internal Medicine 08/23/24
[2025-04-02 08:28] LABS: Prothrombin Time Whole Bld POC 27.3 sec (11.1-13.5); ~PT, ~INR - Anti Coag Clinic 2.3 (0.9-1.1)
--- NOTE | 2025-04-02 08:31 | MHC.OFFVISCO ---
Intake Intake Visit Reasons: Anticoagulation Allergies isosorbide Adverse Reaction (Unknown, Verified 04/02/25 08:23) dizziness Medication List - Last Reconciled 04/02/25 by Sherie Ramirez, DUC atorvastatin 40 mg PO DAILY blood sugar diagnostic (FreeStyle Precision Henrique Strips) As directed blood-glucose sensor (FreeStyle Wilian 3 Plus Sensor device) As directed blood-glucose,vp construction,cont (FreeStyle Wilian 3 [place]) As directed carvedilol 12.5 mg PO BID furosemide 20 mg PO DAILY insulin glargine (Basaglar KwikPen U-100 Insulin) 8 units subcut QAM lisinopril 10 mg PO DAILY magnesium oxide 400 mg PO BID metformin ER 750 mg PO BID nitroglycerin 0.4 mg sublingual DAILY PRN omeprazole 20 mg PO DAILY@0630 30 days sacubitril-valsartan 24-26 mg (Entresto) 1 tab PO BID warfarin 5 mg See Protocol PO DAILY@1800 Nursing Note INR: 2.3 in therapeutic range of 2-3 Medications and supplements reviewed No changes in health, diet, medications, or supplements, Denies any signs and symptoms of bleeding or bruising or clotting. Bleeding, bruising, clotting discussed Nutritional guidance given Dose: 7.5mg X 6 days and 5mg X 1 day F/U INR: 3 weeks Patient verbalizes understanding of instructions given Anti-Coag Initial Assessment Social Hx Patient Tobacco Use Status: Never used Tobacco alcohol intake: former Alcohol intake frequency: does not drink Cardiovascular Hx: HTN, Angina, [place], Arrhythmias, Cardiomyopathy and Other Endocrine Hx: Diabetes Blood Disorder Hx: Hyperlipidemia Hx: Kidney Disease Cancer HX: No Psych. Illness/Depression: Yes Coding Level of Care Code Est Patient Level 1 Diagnoses Current use of anticoagulant therapy Z79.01 Assessment & Plan Assessment & Plan (1) Current use of anticoagulant therapy: Code(s): Z79.01 - retirement (current) use of anticoagulants
== END 2025-04-02 08:34 | disposition home or self-care (01) ==
LOC: HO.ACS 08:20
PROVIDERS: PCP Internal Medicine; Visit Provider Internal Medicine Medical Oncology
DX: Z79.01 Long term (current) use of anticoagulants (principal)

== ENCOUNTER → 2025-04-02 08:20 | Outpatient (BNVA) | payer MEDICARE, SELFPAY | PROVIDERS: PCP Internal Medicine; Visit Provider Internal Medicine Medical Oncology | DX: I48.0 Paroxysmal atrial fibrillation (principal); Z79.01 Long term (current) use of anticoagulants; Z51.81 Encounter for therapeutic drug level monitoring | CPT/HCPCS: 85610; 99211 ==

== ENCOUNTER 2025-04-23 08:48 | Outpatient (AMB) | payer MEDICARE, SELFPAY ==
[2025-04-23 08:52] LABS: Prothrombin Time Whole Bld POC 28.6 sec (11.1-13.5); ~PT, ~INR - Anti Coag Clinic 2.4 (0.9-1.1)
--- NOTE | 2025-04-23 08:54 | MHC.OFFVISCO ---
Intake Intake Visit Reasons: Anticoagulation Allergies isosorbide Adverse Reaction (Unknown, Verified 04/23/25 08:48) dizziness Medication List - Last Reconciled 04/23/25 by Sherie Ramirez RN atorvastatin 40 mg PO DAILY blood sugar diagnostic (FreeStyle Precision Henrique Strips) As directed blood-glucose sensor (FreeStyle Wilian 3 Plus Sensor device) As directed blood-glucose,acls specialist,cont (FreeStyle Wilian 3 [place]) As directed carvedilol 12.5 mg PO BID furosemide 20 mg PO DAILY insulin glargine (Basaglar KwikPen U-100 Insulin) 8 units subcut QAM lisinopril 10 mg PO DAILY magnesium oxide 400 mg PO BID metformin ER 750 mg PO BID nitroglycerin 0.4 mg sublingual DAILY PRN omeprazole 20 mg PO DAILY@0630 30 days sacubitril-valsartan 24-26 mg (Entresto) 1 tab PO BID warfarin 5 mg See Protocol PO DAILY@1800 Nursing Note INR: 2.4 in therapeutic range of 2-3 Medications and supplements reviewed No changes in health, diet, medications, or supplements, Denies any signs and symptoms of bleeding or bruising or clotting. Bleeding, bruising, clotting discussed Nutritional guidance given Dose: 7.5mg X 6 days and 5mg X 1 day (Wed) F/U INR: 4 weeks Patient verbalizes understanding of instructions given Anti-Coag Initial Assessment Social Hx Patient Tobacco Use Status: Never used Tobacco alcohol intake: former Alcohol intake frequency: does not drink Cardiovascular Hx: HTN, Angina, [place], Arrhythmias, Cardiomyopathy and Other Endocrine Hx: Diabetes Blood Disorder Hx: Hyperlipidemia Hx: Kidney Disease Cancer HX: No Psych. Illness/Depression: Yes Coding Level of Care Code Est Patient Level 1 Diagnoses Current use of anticoagulant therapy Z79.01 Results AMB INR Fingerstick AMB INR Fingerstick 2.4 Last Edit by Sherie Ramirez RN on 04/23/25 08:51 interface delay Assessment & Plan Assessment & Plan (1) Current use of anticoagulant therapy: Code(s): Z79.01 - termite inspector (current) use of anticoagulants
--- OUTSIDE RECORDS SUMMARY | 2025-04-23 09:08 | XMS_ITS | Patient Health Record ---
Author Organization [facility] Address [address] [place] [address] Care Team Providers Care Ammonia Operator Name Role Phone Ria Bryant MD Primary Care Provider Rainer Schaffer Jr Unavailable Reason For Referral No Information Problems Problem Type SNOMED Code ICD Code Onset Dates Problem Status W/U Status Risk Notes Problem Iron deficiency anemia (D50.9) Active confirmed Problem Gastritis (2123440) Gastritis (K29.70) Active confirmed Plan Of Treatment No Information Insurance Providers Payer Name Payer Address Payer Phone Subscriber Number Group Number Insured Name Patient Relationship to Insured Coverage Start Date Coverage End Date MEDICARE OF [place] [address] [place] [address] [id number] KERMIT BECKHAMO Self - patient is the insured MED[employer] ATTN CLAIMS [address] [place] [address] [phone] [id number] 1 BECKHAM SOREN Self - patient is the insured
--- OUTSIDE RECORDS SUMMARY | 2025-04-23 09:08 | XMS_ITS | Clinical Summary ---
Author Organization [address] [place] [address] [place] [phone] Phone Care Team Providers Care Control Clerk Auditing Name Role Phone Ria Bryant MD Primary Care Provider [phone] Allergies No known active allergies Medications lancets [...] Take 1-2 tablets daily as prescribed by [facility]. 180 tablet 3 5 Active [...] Problem Noted Date Diagnosed Date Atrial fibrillation ([facility] V24, [facility] V28) 0 03/18/2023 Overview [...] adenoma, left 10/02/2018 DVT (deep venous thrombosis) ([facility] V24, CMS/H CC V28) [...] V24, CMS/HCC V28) 07/10/2008 Ventricular tachyarrhythmia ([facility] V24, CMS/HC C V28) 07/10/2008 Overview [...] PCP. Coronary artery disease 06/09/2006 Overview (06/27/2024): [place] 1998 stent LAD 2004 EF 45% Last [...] Description 02/27/2025 3:50 PM EDT Ancillary Procedure [facility] [address] [facility] [address] [place] [address] 02/08/2025 1:10 PM EDT Office Visit [facility] [address] [facility] [address] [place] [address] Adilene Lindsey NP Primary hypertension (Primary Dx); Coronary artery disease due to lipid rich plaque; Hyperlipidemia, unspecified hyperlipidemia type from Last 3 Months Immunizations Name Administration [...] Coronary atherosclerosis of unspecified type of vessel, [place] or graft 06/09/2006 DX:Coronary atherosclerosis of unspecified type of vessel, [place] or graft; COMMENT: [place] 1998 Alcohol abuse, unspecified 08/19/2006 DX:Al cohol [...] Description 07/17/2025 8:30 AM EDT Ancillary Procedure [facility] [address] [facility] [address] [place] [address] Health Maintenance Due Date Last Done Comments Diabetes: Annual Foot Exam 1950 Diabetes: Annual Retina Eye Exam 1950 RSV Immunization Adult Patients (1 - 1-dose 75+ series) 2015 Zoster Vaccines (2 of 2) 09/25/2020 07/31/2020 Falls Risk Assessment 08/29/2022 Medicare Annual Wellness Visit 08/29/2022 Social Influencers of Health Screening 08/29/2022 Diabetes: Annual Urine Albumin-Creatinine Ratio (uACR) 09/04/2022 05/01/2019 Diabetes: Blood Sugar Control Test (HGBA1C) 09/04/2022 09/22/2018 Cholesterol Screening (Lipid Panel) 05/09/2023 05/09/2018 Depression Screening 09/20/2024 COVID-19 Vaccine (7 - Moderna risk season) [...] this topic Medical Devices Implanted Type Area Permaculture Designer Device Identifier Shelf Expiration Date Model / Serial / Lot Medt-Card Oumou Gutierrez Dr [id number] Implanted:08/20 (Quantity not on file) Cardiac ICD MEDTRONIC - CARDIAC RHYTH-CRD OUMOU Gutierrez DR [id number] / [id number] / Procedures Procedure Name Priority Date/Time Associated [...] 3:49 PM EDT) Date Time Interrogation Session [id number] CV DEVICE CHECK Type Interrogation Session Remote CV DEVICE CHECK Implantable Pulse Generator Permaculture Designer MDT CV DEVICE CHECK Implantable Pulse Generator Type ICD CV DEVICE CHECK Implantable Pulse Generator Model Oumou Gutierrez [id number] CV DEVICE CHECK Implantable Pulse Generator Serial Number [id number] CV DEVICE CHECK Implantable Pulse Generator Implant Date [id number] CV DEVICE CHECK Battery Remaining Longevity 5.0 CV DEVICE CHECK Battery Voltage 2.850 CV D EVICE CHECK Battery TRAFFIC INVESTIGATOR Trigger 2.727 CV DEVICE CHECK Battery Status Middle of Service CV DEVICE CHECK Capacitor Charge Time 4.314 CV DEVICE CHECK Leonard Statistic RA Percent Paced 96.83 CV DEVICE CHECK Leonard Statistic RV Percent Paced 4.17 CV DEVICE CHECK Atrial Tachy Statistic AT/AF [place] Percent 0.00 CV DEVICE CHECK Lead Channel [...] * Annual BMP Blood Test (03/10/2024) Pathologist [facility] Annual BMP Blood Test abstracted Historical Provider HEALTH MAINTENANCE Final Result * Urine Albumin Creatinine Ratio (05/01/2019) Pathologist [facility] Urine Albumin Creatinine Ratio abstracted Historical Provider [...] Recently Relevant to Health Maintenance Insurance MEDICARE [facility] Care Teams Control Clerk Auditing Relationship Specialty Start Date End Date Ria Bryant MD [address] [place] [address] PCP - General Internal Medicine 08/23/24
== END 2025-04-23 08:55 | disposition home or self-care (01) ==
LOC: HO.ACS 08:48
PROVIDERS: PCP Internal Medicine; Visit Provider Internal Medicine Medical Oncology
DX: Z79.01 Long term (current) use of anticoagulants (principal)

== ENCOUNTER → 2025-04-23 08:48 | Outpatient (BNVA) | payer MEDICARE, SELFPAY | PROVIDERS: PCP Internal Medicine; Visit Provider Internal Medicine Medical Oncology | DX: Z51.81 Encounter for therapeutic drug level monitoring (principal); Z79.01 Long term (current) use of anticoagulants | CPT/HCPCS: 85610; 99211 ==

== ENCOUNTER 2025-05-22 08:36 | Outpatient (AMB) | payer MEDICARE, SELFPAY ==
--- OUTSIDE RECORDS SUMMARY | 2024-03-22 09:00 | XMS_ITS ---
Author Organization [facility] Address [address] [place] [address] Care Team Providers Care Rate Examiner Name Role Phone Ria Bryant MD Primary Care Provider Rainer Schaffer Jr Unavailable REASON FOR VISIT GI BLEED Encounters Encounter Location Date Provider Diagnosis [facility] [place] [address] [place], [place] [phone] 03/22/2024 Rainer Roa Jr Plan Of Treatment No Information Progress Notes * KERMIT BECKHAMODOB: [birth year] (84 yo M)Acc No.[id number]:03/22/2024 EGD and COL/MAC Patient: SOREN JASON Provider: Katalina Roa MD :1940 A ge:83 Y S ex:Male Date:03/22/2024 Address:[address] [place], [place] [phone] Pcp:Ria Bryant MD Subjective: * Chief Complaints: * 1 . GI BLEED. * Medical History: Objective: * Vitals: Assessment: Plan: * Treatment: * * The named appointment provid er may or may not be the originator of this progress note, and it is not deemed complete until electronically signed by the appointment provider. Sign off status: Pending * Provider: Katalina Roa MD Date: 03/22/2024 Generated for Lisa tyler/Aliya/eTransmitting on: 05/22/2025 09:16 AM EDT
--- OUTSIDE RECORDS SUMMARY | 2025-05-16 23:59 | XMS_ITS | Continuity of Care Document ---
Author Organization [facility] Address [address] [place] [address]- Care Team Providers Care Dialysis Tech Name Role Phone Troy GUNDERSON, Yessenia Primary Care Physician Encounter [facility] Date(s): 04/16/25 - 05/16/25 [facility] [address] [place], [place] [address] Encounter Type: Triage Allergies, Adverse Reactions, Alerts [...] virus vaccine, inactivated 06/19/05 Casey rded SARS-CoV-2(COVID-19)mRNA-LNP vac(mop573) 06/04/24 Recorded tetanus-diphtheria toxoids (Td) 3 04/29/23 Given tetanus-diphtheria toxoids (Td) 09/02/10 Recorded [id number] 12y+ bivalent booster vax 07/29/22 Given SARS-CoV-2 [...] Pneumococcal Vaccine (oldterm) 11/29/07 Given 1Result Comment: [facility] 28454-876-20 2Result Comment: Patient tollerated well 3Result Comment: [facility] [address]-4 Medications Ascriptin Enteric 81 mg, By Mouth, Daily, Refills 0, Tot. Refills 0, 11/16/07 6:08:35 PM EST Start Date: 11/16/07 Status: Ordered Medication Dispense Status: Completed Total Allowed Fills: 1 Fills Dispensed: 0 atorvastatin 40 mg oral tablet 1 tablet, By Mouth, Daily, # 90 tablet, 6 Refills, Maintenance, 09/29/24 9:21:00 AM EST, [facility], 164.03, cm, 09/29/24 8:39:00 EST, Height, 64.6, kg, 09/29/24 8:35:00 EST, Dry Weight Start Date: 09/29/24 Status: Ordered Medication Dispense Status: Completed Quantity: 90.0 Unit: tablet Total Allowed Fills: 7 Fills Dispensed: 0 Basaglar KwikPen 100 units/mL subcutaneous solution = 5 units, Subcutaneous Injection, Daily at bedtime, 90 day supplies, # 9 mL, 3 Refills, Maintenance, 03/28/25 11:40:00 AM EDT, Solution, [facility], Partial fill upon patient request if the prescription is for a schedule II opioid drug., 165, cm, 03/28/25 10:56:00 EDT, Height, 62, kg, 03/28/25 10:56:00 EDT, Dry Weight Start Date: 03/28/25 Status: Ordered Medication Dispense Status: Completed Quantity: 9.0 Unit: mL Total Allowed Fills: 4 Fills Dispensed: 0 Indications: Type 1 diabetes mellitus without complications; carvedilol 12.5 mg oral tablet 12.5 mg, 1, tablet, By Mouth, 2 times a day, # 60 tablet, Refills 6, Tot. Refills 6, Maintenance, 09/29/24 9:22:00 AM EST, Route to Pharmacy Electronically, [facility], Partial fill upon patient request if the prescription is for a schedule II opioid drug., 164.03, cm, 09/29/24 8:39:00 EST, Height, 64.6, kg, 09/29/24 8:35:00 EST, Dry Weight Start Date: 09/29/24 Status: Ordered Medication Dispense Status: Completed Quantity: 60.0 Unit: tablet Total Allowed Fills: 7 Fills Dispensed: 0 FreeStyle Wilian 3 Plus Sensors See Instructions, # 6 each, Refills 3, Tot. Refills 3, Maintenance, change every 15 days, 03/28/25 11:43:00 AM EDT, Supply, 165, cm, 03/28/25 10:56:00 EDT, Height, 62, kg, 03/28/25 10:56:00 EDT, Dry Weight Start Date: 03/28/25 Status: Ordered Medication Dispense Status: Completed Quantity: 6.0 Unit: each Total Allowed Fills: 4 Fills Dispensed: 0 Indications: Type 2 diabetes mellitus with hyperglycemia; FreeStyle Wilian 3 [place] See Instructions, # 1 each, Maintenance, to be used with freestyle reader to check bloog glucose daily in the am fasted and before meals 3 times a day, 02/05/25 3:18:00 PM EDT, Supply, 165, cm, 02/05/25 14:37:00 EDT, Height, 63.5, kg, 01/31/25 14:05:00 EDT, Dry Weight Start Date: 02/05/25 Status: Ordered Medication Dispense Status: Completed Quantity: 1.0 Unit: each Total Allowed Fills: 1 Fills Dispensed: 0 glucose 4 gm oral tablet, chewable 4 tablet = 16 Gm, Chew, Once, PRN for low blood sugar, # 50 tablet, 0 Refills, Soft Stop, 02/26/25 9:46:00 AM EDT, Chew Tablet, [facility], Partial fill upon patient request if the prescription is for a schedule II opioid drug., 165, cm, 02/26/25 8:59:00 EDT, Height, 63.6, kg, 02/26/25 8:58:00 EDT, Dry Weight Start Date: 02/26/25 Status: Ordered Medication Dispense Status: Completed Quantity: 50.0 Unit: tablet Total Allowed Fills: 1 Fills Dispensed: 0 lisinopril 10 mg oral tablet 1, tablet, By Mouth, Daily, # 90 tablet, Refills 6, Tot. Refills 6, Maintenance, 09/29/24 9:21:00 AMEST, Route to Pharmacy Electronically, [facility], 164.03, cm, 09/29/24 8:39:00EST, Height, 64.6, kg, 09/29/24 8:35:00 EST, Dry Weight Start Date: 09/29/24 Status: Ordered Medication Dispense Status: Completed Quantity: 90.0 Unit: tablet Total Allowed Fills: 7 Fills Dispensed: 0 magnesium oxide 400 mg oral tablet 1 tablet = 400 mg, By Mouth, 2 times a day, # 60 tablet, 0 Refills, Maintenance, 02/05/25 2:58:00 PMEDT, Tablet, [facility], Partial fill upon patient request if the prescription is for a schedule II opioid drug., 165, cm, 02/05/25 14:37:00 EDT, Height, 63.5, kg, 01/31/25 14:05:00 EDT, Dry Weight Start Date: 02/05/25 Status: Ordered Medication Dispense Status: Completed Quantity: 60.0 Unit: tablet Total Allowed Fills: 1 Fills Dispensed: 0 magnesium oxide 400 mg oral tablet See Instructions, TAKE 1 TABLET BY MOUTH TWICE DAILY, # 60 tablet, 0 Refills, Maintenance, 05/08/25 2:16:00 PM EDT, [facility], 165, cm, 04/17/25 9:35:00 EDT, Height, 62, kg, 03/28/25 10:56:00 EDT, Dry Weight Start Date: 05/08/25 Status: Ordered Medication Dispense Status: Completed Quantity: 60.0 Unit: tablet Total Allowed Fills: 1 Fills Dispensed: 0 metFORMIN 750 mg oral tablet, extended release 1 tablet = 750 mg, By Mouth, 2 times a day, # 180 tablet, 3 Refills, Maintenance, 03/28/25 11:42:00 AM EDT, ER Tablet, [facility], Partial fill upon patient request if the prescription is for a schedule II opioid drug. changing from 500mg ER dose to help with adherence., 165, cm, 0 03/28/25 10:56:00 EDT, Height, 62, kg, 03/28/25 10:56:00 EDT, Dry Weight Start Date: 03/28/25 Stop Date: 03/23/26 Status: Ordered Medication Dispense Status: Completed Quantity: 180.0 Unit: tablet Total Allowed Fills: 4 Fills Dispensed: 0 Indications: Type 2 diabetes mellitus with hyperglycemia; Nitrostat 0.4 mg sublingual tablet 1 tablet = 0.4 mg, Sublingual, Every 5 minutes, PRN Chest Pain, # 100 tablet, 0 Refills, Maintenance, 11/03/19 4:02:00 PM EST, Tablet, [id number], 166, cm, 11/03/19 15:28:00 EST, Height, 65.3, kg, 11/01/19 22:48:00 EST, Dry Weight Start Date: 11/03/19 Stop Date: 12/03/19 Status: Ordered Medication Dispense Status: Completed Quantity: 100.0 Unit: tablet Total Allowed Fills: 1 Fills Dispensed: 0 NovoLOG FlexPen 100 units/mL injectable solution See Instructions, max daily dose 30 units, take 3 times per day following seperate scale. 90 days supplies, # 27 mL, 3 Refills, Maintenance, 03/28/25 2:44:00 PM EDT, [facility], Partial fill upon patient request if the prescription is for a schedule II opioid drug., 165, cm, 03/28/25 10:56:00 EDT, Height, 62, kg, 03/28/25 10:56:00 EDT, Dry Weight Start Date: 03/28/25 Status: Ordered Medication Dispense Status: Completed Quantity: 27.0 Unit: mL Total Allowed Fills: 4 Fills Dispensed: 0 Indications: Type 2 diabetes mellitus without complications; One Touch Ultra Test Strips See Instructions, # 200 each, Refills 3, Tot. Refills 3, Maintenance, use with one touch ultra2 meter check sugars 1-2 times daily dx- E11.65 duration - 90 days/ 1refill, 11/01/24 2:23:00 PM EST, Supply, 164.03, cm, 11/01/24 13:32:00 EST, Height, 64.6, kg, 09/29/24 8:35:00 EST, Dry Weight Start Date: 11/01/24 Status: Ordered Medication Dispense Status: Completed Quantity: 200.0 Unit: each Total Allowed Fills: 4 Fills Dispensed: 0 One Touch Ultra Test Strips See Instructions, # 200 each, Refills 5, Tot. Refills 5, Maintenance, to use to check blood glucosefasting in the AM and before meals 3 times days, 02/05/25 3:21:00 PM EDT, Supply, 165, cm, 02/05/25 14:37:00 EDT, Height, 63.5, kg, 01/31/25 14:05:00 EDT, Dry Weight Start Date: 02/05/25 Stop Date: 08/04/25 Status: Ordered Medication Dispense Status: Completed Quantity: 200.0 Unit: each Total Allowed Fills: 6 Fills Dispensed: 0 Pen [place], 30 G x 8 mm BD Ultra Fine II See Instructions, # 100 each, Refills 5, Tot. Refills 5, Maintenance, use as directed for Type 2 Diabetes Mellitus to be used daily with basaglar 10 units, 02/08/25 11:07:00 AM EDT, Supply, 165, cm, 02/05/25 14:37:00 EDT, Height, 63.5, kg, 01/31/25 14:05:00 EDT, Dry Weight Start Date: 02/08/25 Stop Date: 08/07/25 Status: Ordered Medication Dispense Status: Completed Quantity: 100.0 Unit: each Total Allowed Fills: 6 Fills Dispensed: 0 Test Strips See Instructions, # 300 each, Maintenance, freestyle KELLY test strips to check glucose 3 times a daybefore meals, 02/07/25 9:20:00 AM EDT, Supply, 165, cm, 02/05/25 14:37:00 EDT, Height, 63.5, kg, 01/31/25 14:05:00 EDT, Dry Weight Start Date: 02/07/25 Status: Ordered Medication Dispense Status: Completed Quantity: 300.0 Unit: each Total Allowed Fills: 1 Fills Dispensed: 0 Indications: Type 2 diabetes mellitus without complications; Problem List Condition Confirmation Course Effective Dates Status H ealth Status Informant Atrial fibrillation Confirmed Active Boil, arm Confirmed Active Brittle diabetes mellitus Confirmed Active Diabetes mellitus Confirmed Active Uncontrolled diabetes mellitus with hyperglycemia Confirmed Active Dizziness Confirmed Active Ischemic cardiomyopathy Confirmed Active Hyperlipidemia Confirmed Active Hypertension Confirmed Active Umbilical hernia Confirmed Active Social History Social History Type Response Smoking Status Never smoker entered on: 02/12/16 Sex Sex Representation Male (finding) Patient Care team information Care Team Personnel Name: Barbi Rios RN Position: [facility] RN Member Role: Primary Care Nurse Name: Shantal Garcia RN Position: [facility] ED RN W/OE and Tasks Member Role: Primary Care Nurse Name: Lisha Cardenas RN Position: [facility] RN Member Role: Primary Care Nurse Name: Aster Ellison RN Position: [facility] RN Member Role: Primary Care Nurse Name: Yesy Hylton RN Position: [facility] RN Member Role: Primary Care Nurse Name: Yessenia Simmons MD Position: [facility] Physician - Primary Care Member Role: PCP Address: [address] [place] [address] Adult & Pediatric Medicine [address] Telecom: Care Team Related Persons Name: MARK WELLINGTON Name: FANY CASE Insurance Providers Guarantor name: SOREN LOVEA [employer] Plan Information #: 1 Payer: MEDICARE B Payer Identifier: TERRELL Member Number: [id number] Group Number: [id number] Subscriber Identifier: TERRELL Relationship to Subscriber: self Coverage Type: NA Coverage Verification Date: NA Telecom: NA Address: Health Plan Information #: 2 Payer: MEDEX SECONDARY ONLY Payer Identifier: TERRELL Member Number: [id number] Group Number: [id number] Subscriber Identifier: NA Relationship to Subscriber: self Coverage Type: Medicare Other Coverage Verification Date: NA Telecom: NA Address: NA
[2025-05-22 08:47] LABS: Prothrombin Time Whole Bld POC 21.3 sec (11.1-13.5); ~PT, ~INR - Anti Coag Clinic 1.8 (0.9-1.1)
--- NOTE | 2025-05-22 08:49 | MHC.OFFVISCO ---
Intake Intake Visit Reasons: Anticoagulation Allergies isosorbide Adverse Reaction (Unknown, Verified 05/22/25 08:43) dizziness Medication List - Last Reconciled 05/22/25 by Sherie Ramirez RN atorvastatin 40 mg PO DAILY blood sugar diagnostic (FreeStyle Precision [place] Strips) As directed blood-glucose sensor (FreeStyle Wilian 3 Plus Sensor device) As directed blood-glucose,contact finger assembler,cont (FreeStyle Wilian 3 [place]) As directed carvedilol 12.5 mg PO BID furosemide 20 mg PO DAILY insulin glargine (Basaglar KwikPen U-100 Insulin) 8 units subcut QAM lisinopril 10 mg PO DAILY magnesium oxide 400 mg PO BID metformin ER 750 mg PO BID nitroglycerin 0.4 mg sublingual DAILY PRN omeprazole 20 mg PO DAILY@0630 30 days sacubitril-valsartan 24-26 mg (Entresto) 1 tab PO BID warfarin 5 mg See Protocol PO DAILY@1800 Nursing Note INR: 1.8 out of therapeutic range of 2-3 Medications and supplements reviewed No changes in health, diet, medications, or supplements, Denies any signs and symptoms of bleeding or bruising or clotting. Bleeding, bruising, clotting discussed Nutritional guidance given to avoid greens today Dose: increase today's dose to 10mg (7.5mg) then 7.5mg X 6 days and 5mg X 1 day (Wed) F/U INR: 4 weeks Patient verbalizes understanding of instructions given Anti-Coag Initial Assessment Social Hx Patient Tobacco Use Status: Never used Tobacco alcohol intake: former Alcohol intake frequency: does not drink Cardiovascular Hx: HTN, Angina, AK, Arrhythmias, Cardiomyopathy and Other Endocrine Hx: Diabetes Blood Disorder Hx: Hyperlipidemia Hx: Kidney Disease Cancer HX: No Psych. Illness/Depression: Yes Coding Level of Care Code Est Patient Level 1 Diagnoses Current use of anticoagulant therapy Z79.01 Results AMB INR Fingerstick AMB INR Fingerstick 1.8 Last Edit by Sherie Ramirez RN on 05/22/25 08:48 interface delay Assessment & Plan Assessment & Plan (1) Current use of anticoagulant therapy: Code(s): Z79.01 - meterman (current) use of anticoagulants
--- OUTSIDE RECORDS SUMMARY | 2025-05-22 09:16 | XMS_ITS | Clinical Summary ---
Author Organization [address] [place] [address] [place] [phone] Phone Care Team Providers Care Lookback Coordinator Name Role Phone Ria Bryant MD Primary Care Provider [phone] Allergies No known active allergies Medications lancets [...] Take 1-2 tablets daily as prescribed by [facility]. 180 tablet 3 5 Active [...] Noted Date Diagnosed Date Atrial fibrillation ([facility] V24, [facility] V28) 0 03/18/2023 Overview (06/27/2024): [...] adenoma, left 10/02/2018 DVT (deep venous thrombosis) ([facility] V24, CMS/H CC V28) 05/20/2018 [...] (CMS/HCC V24, CMS/HCC V28) 07/10/2008 Ventricular tachyarrhythmia (CMS/[facility] V24, CMS/HC C V28) 07/10/2008 [...] PCP. Coronary artery disease 06/09/2006 Overview (06/27/2024): [place] 1999 stent LAD 2004 EF 45% Last Assessment [...] Description 02/27/2025 3:50 PM EDT Ancillary Procedure [facility] [address] [place] [address] from Last 3 Months Immunizations Name Administration [...] Coronary atherosclerosis of unspecified type of vessel, [place] or graft 06/09/2006 DX:Coronary atherosclerosis of unspecified type of vessel, [place] or graft; COMMENT: [place] 1998 Alcohol abuse, unspecified 08/19/2006 DX:Al cohol [...] Description 07/17/2025 8:30 AM EDT Ancillary Procedure [facility] [address] [facility] [address] [place] [address] Health Maintenance Due Date Last [...] 03/10/2025 03/10/2024, 03/10/2024 Influenza Vaccine (#1) 2025 , 08/03/2023, 07/29/2022, Additional history exists DTaP,Tdap,and Td [...] this topic Medical Devices Implanted Type Area Management Consultant Device Identifier Shelf Expiration Date Model / Serial / Lot Medt-Card Oumou Gutierrez Dr [id number] Implanted:08/20 (Quantity not on file) Cardiac ICD MEDTRONIC - CARDIAC RHYTH-CRDM OUMOU Gutierrez DR [id number] / [id number] / Procedures Procedure Name Priority Date/Time Associated [...] 3:49 PM EDT) Date Time Interrogation Session [id number] CV DEVICE CHECK Type Interrogation Session Remote CV DEVICE CHECK Implantable Pulse Generator Management Consultant MDT CV DEVICE CHECK Implantable Pulse Generator Type ICD CV DEVICE CHECK Implantable Pulse Generator Model Evera S [id number] CV DEVICE CHECK Implantable Pulse Generator Serial Number [id number] CV DEVICE CHECK Implantable Pulse Generator Implant Date [id number] CV DEVICE CHECK Battery Remaining Longevity 5.0 CV DEVICE CHECK Battery Voltage 2.850 CV D EVICE CHECK Battery CROSS COUNTRY AND TRACK AND FIELD COACH Trigger 2.727 CV DEVICE CHECK Battery Status Middle of Service CV DEVICE CHECK Capacitor Charge Time 4.314 CV DEVICE CHECK Leonard Statistic RA Percent Paced 96.83 CV DEVICE CHECK Leonard Statistic RV Percent Paced 4.17 CV DEVICE CHECK Atrial Tachy Statistic AT/AF [place] Percent 0.00 CV DEVICE CHECK Lead Channel [...] * scheduled monthly monitoring for ALHAJI Result [facility] Benja Brown MD CV IMPLANTABLE CARDIAC DEVICE PROCEDURES Final Result * Annual BMP Blood Test (03/10/2024) Pathologist [facility] Annual BMP Blood Test abstracted Result [facility] Provider HEALTH MAINTENANCE Final Result * Urine Albumin Creatinine Ratio (05/01/2019) [facility] Urine Albumin Creatinine Ratio abstracted Result [facility] Provider HEALTH MAINTENANCE Final Result * (ABNORMAL) Hemoglobin A1c (09/22/2018) [facility] Hemoglobin A1C 8.2(A) <=6.5 % Blood Venous blood specimen / Unknown Result [facility] Provider LAB BLOOD ORDERABLES Gini l [...] Recently Relevant to Health Maintenance Insurance MEDICARE [facility] Care Teams Lookback Coordinator Relationship Specialty Start Date End Date Ria Bryant MD [address] [place] [address] PCP - General Internal Medicine 08/23/24
--- OUTSIDE RECORDS SUMMARY | 2025-05-22 09:16 | XMS_ITS | Patient Health Record ---
Author Organization [facility] Address [address] [place] [address] Care Team Providers Care Brand Attendant Name Role Phone Ria Bryant MD Primary Care Provider Rainer Schaffer Jr Unavailable [phone] Reason For Referral No Information Problems Problem Type SNOMED Code ICD Code Onset Dates Problem Status W/U Status Risk Notes Problem Iron deficiency anemia (D50.9) Active confirmed Problem Gastritis (9992713) Gastritis (K29.70) Active confirmed Plan Of Treatment No Information Insurance Providers Payer Name Payer Address Payer Phone Subscriber Number Group Number Insured Name Patient Relationship to Insured Coverage Start Date Coverage End Date MEDICARE OF [place] [address] [place] [address] [id number] KERMIT BECKHAMO Self - patient is the insured MEDEX ATTN CLAIMS [address] [place] [address] [id number] BECKHAM SOREN Self - patient is the insured
== END 2025-05-22 08:53 | disposition home or self-care (01) ==
LOC: HO.ACS 08:36
PROVIDERS: PCP Internal Medicine; Visit Provider Internal Medicine Medical Oncology
DX: Z79.01 Long term (current) use of anticoagulants (principal)

== ENCOUNTER → 2025-05-22 08:36 | Outpatient (BNVA) | payer MEDICARE, SELFPAY | PROVIDERS: PCP Internal Medicine; Visit Provider Internal Medicine Medical Oncology | DX: Z51.81 Encounter for therapeutic drug level monitoring (principal); Z79.01 Long term (current) use of anticoagulants | CPT/HCPCS: 85610; 99211 ==

== ENCOUNTER 2025-06-18 08:37 | Outpatient (AMB) | payer MEDICARE, SELFPAY ==
--- OUTSIDE RECORDS SUMMARY | 2024-03-22 09:00 | XMS_ITS ---
Author Organization [facility] Address [address] [place] [address] Care Team Providers Care College Director Name Role Phone Ria Bryant MD Primary Care Provider Boyd Roa Jr, Rainer Unavailable REASON FOR VISIT GI BLEED Encounters Encounter Location Date Provider [place] [facility] [place] [address] [place], [place] [phone] 03/22/2024 Rainer Roa Jr Plan Of Treatment No Information Progress Notes * KERMIT BECKHAMODOB: [birth year] (84 yo M)Acc No.[id number]:03/22/2024 EGD and COL/MAC Patient: SOREN JASON Provider: Katalina Roa MD :1940 A ge:83 Y S ex:Male Date:03/22/2024 Address:[address] [place], [place] [phone] Pcp:Ria Bryant MD Subjective: * Chief Complaints: [...] Date: 03/22/2024 Generated for Lisa tyler/Aliya/eTransmitting on: 06/18/2025 09:04 AM EDT
--- OUTSIDE RECORDS SUMMARY | 2025-06-18 09:04 | XMS_ITS | Clinical Summary ---
Author Organization [address] [place] [address] [place] [phone] Phone Care Team Providers Care Supervisor Printing And Stamping Name Role Phone Ria Bryant MD Primary Care Provider [phone] Allergies No known active allergies Medications lancets [...] Take 1-2 tablets daily as prescribed by [facility]. 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 Coronary artery disease 06/09/2006 Overview (06/27/2024): [place] 1999 stent LAD 2004 EF 45% Last [...] he would like to do moving forward. Immunizations Immunization Administration Dates Next Due Influenza trivalent, 0.5mL [...] Coronary atherosclerosis of unspecified type of vessel, capitan grande band or graft 06/09/2006 DX:Coronary atherosclerosis of unspecified type of vessel, capitan grande band or graft; COMMENT: [place] 1998 Alcohol abuse, unspecified 08/19/2006 DX:Al cohol [...] Description 07/17/2025 8:30 AM EDT Ancillary Procedure [facility] [address] [facility] [address] [place] [address] Health Maintenance Due Date Last [...] (Lipid Panel) 05/09/2023 05/09/2018 Depression Screening 09/20/2024 Diabetes: Annual GFR (Glomerular Filtration Rate) 03/10/2025 03/10/2024, 03/10/2024 Hypertension/CHF/CAD Annual BMP Blood Test 03/10/2025 03/10/2024, 03/10/2024 COVID-19 Vaccine (7 - Moderna risk 2023- season) 2025 06/04/2024, 08/30/2021, 01/04/2021, Additional history exists Influenza Vaccine (#1) 2025 , 08/03/2023, 07/29/2022, [...] this topic Medical Devices Implanted Type Area Mental Health Assistant Device Identifier Shelf Expiration Date Model / Serial / Lot Medt-Card Oumou Gutierrez Dr [id number] Implanted:08/20 (Quantity not on file) Cardiac ICD MEDTRONIC - CARDIAC RHYTH-CRDM OUMOU Gutierrez DR [id number] / [id number] / Procedures Procedure Name Priority Date/Time Associated Diagnosis Comments ANNUAL BMP BLOOD TEST Routine 03/10/2024 URINE ALBUMIN CREATININE RATIO Routine 05/01/2019 HEMOGLOBIN A1C Routine 09/22/2018 LIPID PANEL Routine 05/09/2018 from Last 3 Months or Most Recently Relevant to Health Maintenance Results * Annual BMP Blood Test (03/10/2024) Pathologist [facility] Annual BMP Blood Test abstracted [facility] Provider HEALTH MAINTENANCE Final Result * Urine Albumin Creatinine Ratio (05/01/2019) Pathologist [facility] Urine Albumin Creatinine Ratio abstracted Result [facility] Historical Provider HEALTH MAINTENANCE Final Result * (ABNORMAL) Hemoglobin A1c (09/22/2018) Pathologist [facility] Hemoglobin A1C 8.2(A) <=6.5 % Blood Venous blood specimen / Unknown Result [facility] Historical Provider LAB BLOOD ORDERABLES Gini l [...] Recently Relevant to Health Maintenance Insurance MEDICARE [facility] Care Teams Supervisor Printing And Stamping Relationship Specialty Start Date End Date Ria Bryant MD [id number] [place] [address] PCP - General Internal Medicine 08/23/24
--- OUTSIDE RECORDS SUMMARY | 2025-06-18 09:05 | XMS_ITS | Patient Health Record ---
Author Organization [facility] Address [address] [place] [address] Care Team Providers Care Director Business Management Name Role Phone Annette GUNDERSON, Ria Primary Care Provider Rainer Schaffer Jr Unavailable [phone] Reason For Referral No Information Problems Problem Type SNOMED Code ICD Code Onset Dates Problem Status W/U Status Risk Notes Problem Iron deficiency anemia (91979014) Iron deficiency anemia (D50.9) Active confirmed Problem Gastritis (5898422) Gastritis (K29.70) Active confirmed Plan Of Treatment No Information Insurance Providers Payer Name Payer Address Payer Phone Subscriber Number Group Number Insured Name Patient Relationship to Insured Coverage Start Date Coverage End Date MEDICARE OF [place] [address] [place] [address] [id number] KERMIT BECKHAMO Self - patient is the insured MEDEX ATTN CLAIMS [address] [place] [address] [phone] [id number] 1 CHAPINCITO SOREN Self - patient is the insured
--- NOTE | 2025-06-18 09:06 | MHC.OFFVISCO ---
Intake Intake Visit Reasons: Anticoagulation Allergies isosorbide Adverse Reaction (Unknown, Verified 06/18/25 08:47) dizziness Medication List - Last Reconciled 06/18/25 by Aster Gates RN atorvastatin 40 mg PO DAILY blood sugar diagnostic (FreeStyle Precision Henrique Strips) As directed blood-glucose sensor (FreeStyle Wilian 3 Plus Sensor device) As directed blood-glucose,sales representative metals,cont (FreeStyle Wilian 3 [place]) As directed carvedilol 12.5 mg PO BID furosemide 20 mg PO DAILY glipizide 2.5 mg PO QAM insulin glargine (Basaglar KwikPen U-100 Insulin) 8 units subcut QAM lisinopril 10 mg PO DAILY magnesium oxide 400 mg PO BID metformin ER 750 mg PO BID nitroglycerin 0.4 mg sublingual DAILY PRN omeprazole 20 mg PO DAILY@0630 30 days sacubitril-valsartan 24-26 mg (Entresto) 1 tab PO BID warfarin 5 mg See Protocol PO DAILY@1800 Nursing Note INR: 2.3 in therapeutic range Medications and supplements reviewed No changes in health, diet, medications, or supplements, Denies any signs and symptoms of bleeding or bruising or clotting. Pt stated he fell a few times bumped hip - sore but was able to walk 5 miles, fell in bathroom denies any injury, discussed contacting md especially hitting his head. Bleeding, bruising, clotting discussed Nutritional guidance given Dose: 5MG X 1 DAY/ 7.5MG X 6 DAYS F/U INR: 1 MONTH Patient verbalizes understanding of instructions given Anti-Coag Initial Assessment Social Hx Patient Tobacco Use Status: Never used Tobacco alcohol intake: former Alcohol intake frequency: does not drink Cardiovascular Hx: HTN, Angina, PA, Arrhythmias, Cardiomyopathy and Other Endocrine Hx: Diabetes Blood Disorder Hx: Hyperlipidemia Hx: Kidney Disease Cancer HX: No Psych. Illness/Depression: Yes Coding Level of Care Code Est Patient Level 1 Diagnoses Current use of anticoagulant therapy Z79.01 Results AMB INR Fingerstick AMB INR Fingerstick 2.3 Last Edit by Aster Gates RN on 06/18/25 08:59 MANUAL ENTRY Assessment & Plan Assessment & Plan (1) Current use of anticoagulant therapy: Code(s): Z79.01 - longterm (current) use of anticoagulants
[2025-06-18 13:03] LABS: Prothrombin Time Whole Bld POC 27.4 sec (11.1-13.5); ~PT, ~INR - Anti Coag Clinic 2.3 (0.9-1.1)
== END 2025-06-18 09:13 | disposition home or self-care (01) ==
LOC: HO.ACS 08:37
PROVIDERS: PCP Internal Medicine; Visit Provider Internal Medicine Medical Oncology
DX: Z79.01 Long term (current) use of anticoagulants (principal)

== ENCOUNTER → 2025-06-18 08:37 | Outpatient (BNVA) | payer MEDICARE, SELFPAY | PROVIDERS: PCP Internal Medicine; Visit Provider Internal Medicine Medical Oncology | DX: Z51.81 Encounter for therapeutic drug level monitoring (principal); Z79.01 Long term (current) use of anticoagulants | CPT/HCPCS: 85610; 99211 ==

== ENCOUNTER 2025-07-16 08:37 | Outpatient (AMB) | payer MEDICARE, SELFPAY ==
--- OUTSIDE RECORDS SUMMARY | 2024-03-22 09:00 | XMS_ITS ---
Author Organization [facility] Address [address] [place] [address] Care Team Providers Care Cash Register Repairer Name Role Phone Ria Bryant MD Primary Care Provider Boyd Roa Jr, Rainer Unavailable REASON FOR VISIT GI BLEED Encounters Encounter Location Date Provider Diagnosis [facility] [place] [address] [place], [place] [phone] 03/22/2024 Rainer Roa Jr Plan Of Treatment No Information Progress Notes * KERMIT BECKHAMODOB: [birth year] (84 yo M)Acc No.[id number]:03/22/2024 EGD and COL/MAC Patient: SOREN JASON Provider: Katalina Roa MD :1940 A ge:83 Y S ex:Male Date:03/22/2024 Address:[address] [place], [place] [phone] Pcp:Ria Bryant MD Subjective: * Chief Complaints: [...] MD Date: 0 03/22/2024 Generated for Lisa tyler/Aliya/eTransmitting on: 09:02 AM EDT
[2025-07-16 08:43] LABS: Prothrombin Time Whole Bld POC 27.9 sec (11.1-13.5); ~PT, ~INR - Anti Coag Clinic 2.3 (0.9-1.1)
--- NOTE | 2025-07-16 08:44 | MHC.OFFVISCO ---
Intake Intake Visit Reasons: Anticoagulation Allergies isosorbide Adverse Reaction (Unknown, Verified 07/16/25 08:37) dizziness Medication List - Last Reconciled 07/16/25 by Sherie Ramirez, DUC atorvastatin 40 mg PO DAILY blood sugar diagnostic (FreeStyle Precision Henrique Strips) As directed blood-glucose sensor (FreeStyle Wilian 3 Plus Sensor device) As directed blood-glucose,electrician elevator maintenance,cont (FreeStyle Wilian 3 [place]) As directed carvedilol 12.5 mg PO BID furosemide 20 mg PO DAILY glipizide 2.5 mg PO QAM insulin glargine (Basaglar KwikPen U-100 Insulin) 8 units subcut QAM lisinopril 10 mg PO DAILY magnesium oxide 400 mg PO BID metformin ER 750 mg PO BID nitroglycerin 0.4 mg sublingual DAILY PRN omeprazole 20 mg PO DAILY@0630 30 days sacubitril-valsartan 24-26 mg (Entresto) 1 tab PO BID warfarin 5 mg See Protocol PO DAILY@1800 Nursing Note INR: 2.3 in therapeutic range of 2-3 Medications and supplements reviewed No changes in health, diet, medications, or supplements, Denies any signs and symptoms of bleeding or bruising or clotting. Bleeding, bruising, clotting discussed Nutritional guidance given Dose: 7.5mg X 6 days and 5mg X 1 day (Wed) F/U INR: 4 weeks Patient verbalizes understanding of instructions given Anti-Coag Initial Assessment Social Hx Patient Tobacco Use Status: Never used Tobacco alcohol intake: former Alcohol intake frequency: does not drink Cardiovascular Hx: HTN, Angina, [place], Arrhythmias, Cardiomyopathy and Other Endocrine Hx: Diabetes Blood Disorder Hx: Hyperlipidemia Hx: Kidney Disease Cancer HX: No Psych. 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
--- OUTSIDE RECORDS SUMMARY | 2025-07-16 09:02 | XMS_ITS | Clinical Summary ---
Author Organization [address] [place] [address] [place] [address] Phone Care Team Providers Care Ultrasonic Hand Solderer Name Role Phone Ria Bryant MD Primary Care Provider [phone] Allergies No known active allergies Medications lancets [...] Take 1-2 tablets daily as prescribed by [facility]. 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 Coronary artery disease 06/09/2006 Overview (06/27/2024): [place] 1999 stent LAD 2004 EF 45% Last [...] Encounters Date Type Department Care Team Description 06/29/2025 2:25 PM EDT Ancillary Procedure [facility] [address] [facility] [address] [place] [address] 06/19/2025 12:40 PM EDT Ancillary Procedure [facility] [address] [facility] [address] [place] [address] from Last 3 Months Immunizations Immunization Administration Dates Next Due Influenza [...] Coronary atherosclerosis of unspecified type of vessel, chilkoot or graft 06/09/2006 DX:Coronary atherosclerosis of unspecified type of vessel, chilkoot or graft; COMMENT: [place] 1998 Alcohol abuse, unspecified 08/19/2006 DX:Al cohol [...] Description 07/17/2025 8:30 AM EDT Ancillary Procedure [facility] [address] [place] [phone] 07/30/2025 9:10 AM EST Office Visit [facility] [address] [place] [phone] Adilene Lindsey NP [address] [place] [phone] Health Maintenance Due Date Last Done Comments [...] Blood Test 03/10/2025 03/10/2024, 03/10/2024 COVID-19 Vaccine (5 - Moderna risk season) 2025 06/04/2024, 08/30/2021, 12/31/2020, Additional history exists Influenza Vaccine (#1) 2025 [...] this topic Medical Devices Implanted Type Area Embroiderer Hand Device Identifier Shelf Expiration Date Model / Serial / Lot Medt-Card Oumou Gutierrez Dr [id number] Implanted:08/20 (Quantity not on file) Cardiac ICD MEDTRONIC - CARDIAC RHYTH-CRDM OUMOU Gutierrez DR, [id number] / [id number] / Procedures Procedure Name Priority Date/Time Associated Diagnosis Comments CARDIAC DEVICE CHECK- REMOTE- MURJ Routine 06/29/2025 2:21 PM EDT CARDIAC DEVICE CHECK- REMOTE- MURJ Routine 06/19/2025 12:35 PM EDT ANNUAL BMP BLOOD TEST Routine 03/10/2024 URINE ALBUMIN CREATININE RATIO Routine 05/01/2019 HEMOGLOBIN A1C Routine 09/22/2018 LIPID PANEL Routine 05/09/2018 from Last 3 Months or Most Recently Relevant to Health Maintenance Results * Cardiac device check - Remote- MURJ (06/29/2025 2:21 PM EDT) Only the most recent of2 resultswithin the time period is included. Date Time Interrogation Session [id number] CV DEVICE CHECK Type Interrogation Session Remote CV DEVICE CHECK Implantable Pulse Generator Embroiderer Hand MDT CV DEVICE CHECK Implantable Pulse Generator Type ICD CV DEVICE CHECK Implantable Pulse Generator Model Filia S [id number] CV DEVICE CHECK Implantable Pulse Generator Serial Number [id number] CV DEVICE CHECK Implantable Pulse Generator Implant Date [id number] CV DEVICE CHECK Battery Remaining Longevity 3.0 CV DEVICE CHECK Battery Voltage 2.830 CV D EVICE CHECK Battery MACHINE PACKER Trigger 2.727 CV DEVICE CHECK Battery Status Middle of Service CV DEVICE CHECK Capacitor Charge Time 4.454 CV DEVICE CHECK Leonard Statistic RA Percent Paced 97.83 CV DEVICE CHECK Leonard Statistic RV Percent Paced 8.22 CV DEVICE CHECK Atrial Tachy Statistic AT/AF [place] Percent 0.00 CV DEVICE CHECK Lead Channel Sensing Intrinsic Amplitude 1.250 CV DEVICE CHECK Lead Channel Setting Sensing Sensitivity 0.45 CV DEVICE CHECK Lead Channel Impedance Value 399 CV DEVICE CHECK Lead Channel Pacing Threshold Amplitude 0.625 CV DEVICE CHECK Lead Channel Pacing Threshold Pulse Width 0.4 CV DEVICE CHECK Lead Channel RA Pacing Threshold Date 2025-03-13 CV DEVICE CHECK Lead Channel Setting Pacing [...] CHECK Lead Channel RV Pacing Threshold Date 2025-06-26 CV DEVICE CHECK Lead Channel Setting Pacing [...] 0 CV DEVICE CHECK RV HV Impedance 61 CV D EVICE CHECK Zone Setting Type [...] 6 CV DEVICE CHECK Date of Service 2025-09-18 CV DEVICE CHECK Anatomical Region Laterality Modality Device Interroga tion 06/26/2025 1:25 AM EDT Impressions 06/29/2025 7:51 AM EDT Unscheduled Remote * Reason: Battery Check * Alerts or Events: 0 * Battery: OK, 3 mos * Sensing, impedance and thresholds reviewed * Programmed parameters reviewed * Presenting rhythm reviewed * Heart Rate Histograms reviewed * No significant changes noted Additional Notes: continue monthly until ALHAJI Narrative Procedure Note Benja Brown MD - 06/29/2025 IMPRESSION: Unscheduled Remote * Reason: Battery Check * Alerts or Events: 0 * Battery: OK, 3 mos * Sensing, impedance and thresholds reviewed * Programmed parameters reviewed * Presenting rhythm reviewed * Heart Rate Histograms reviewed * No significant changes noted Additional Notes: continue monthly until ALHAJI Benja Brown MD CV IMPLANTABLE CARDIAC DEVICE PROCEDURES Final Result * Annual BMP Blood Test (03/10/2024) Pathologist [facility] Annual BMP Blood Test abstracted [facility] Provider HEALTH MAINTENANCE Final Result * Urine Albumin Creatinine Ratio (05/01/2019) Pathologist [facility] Urine Albumin Creatinine Ratio abstracted [facility] Provider HEALTH MAINTENANCE Final Result * (ABNORMAL) Hemoglobin A1c (09/22/2018) [facility] Hemoglobin A1C 8.2(A) <=6.5 % Blood Venous blood specimen / Unknown Result [facility] Provider MD LAB BLOOD ORDERABLES Gini l Result * Lipid panel (05/09/2018) [facility] LDL/HDL Ratio 3 0 - 4 Triglycerides 65 0 - 150 mg/dL Cholesterol 146 0 - 200 mg/dL HDL 52 >=40 mg/dL LDL Cholesterol 81 0 - 100 mg/dL Blood Venous blood specimen / Unknown Result [facility] Provider LAB BLOOD ORDERABLES Gini l Result from Last 3 Months or Most Recently Relevant to Health Maintenance Insurance MEDICARE [facility] Care Teams Ultrasonic Hand Solderer Relationship Specialty Start Date End Date Ria Bryant MD [id number] [place] [address] PCP - General Internal Medicine 08/23/24
--- OUTSIDE RECORDS SUMMARY | 2025-07-16 09:02 | XMS_ITS | Patient Health Record ---
Author Organization [facility] Address [address] [place] [address] Care Team Providers Care Certified Medical Biller Name Role Phone Annette GUNDERSON, Ria Primary Care Provider Rainer Schaffer Jr Unavailable Reason For Referral No Information Problems Problem Type SNOMED Code ICD Code Onset Dates Problem Status W/U Status Risk Notes Problem Iron deficiency anemia (55197542) Iron deficiency anemia (D50.9) Active confirmed Problem Gastritis (0988428) Gastritis (K29.70) Active confirmed Plan Of Treatment No Information Insurance Providers Payer Name Payer Address Payer Phone Subscriber Number Group Number Insured Name Patient Relationship to Insured Coverage Start Date Coverage End Date MEDICARE OF [place] [address] [place] [address] [id number] KERMIT BECKHAMO Self - patient is the insured MED[employer] ATTN CLAIMS [address] [place] [address] [id number] 1 CHAPINCITO SOREN Self - patient is the insured
== END 2025-07-16 08:47 | disposition home or self-care (01) ==
LOC: HO.ACS 08:37
PROVIDERS: PCP Internal Medicine; Visit Provider Internal Medicine Medical Oncology
DX: Z79.01 Long term (current) use of anticoagulants (principal)

== ENCOUNTER → 2025-07-16 08:37 | Outpatient (BNVA) | payer MEDICARE, SELFPAY | PROVIDERS: PCP Internal Medicine; Visit Provider Internal Medicine Medical Oncology | DX: I48.0 Paroxysmal atrial fibrillation (principal); Z51.81 Encounter for therapeutic drug level monitoring; Z79.01 Long term (current) use of anticoagulants | CPT/HCPCS: 85610; 99211 ==

== ENCOUNTER 2025-08-13 08:17 | Outpatient (AMB) | payer MEDICARE, SELFPAY ==
--- OUTSIDE RECORDS SUMMARY | 2024-03-22 08:00 | XMS_ITS ---
Author Organization [facility] Address [address] [place] [address] Care Team Providers Care Metal Numerical Control Programmer Name Role Phone Ria Bryant MD Primary Care Provider Boyd Roa Jr, Rainer Unavailable REASON FOR VISIT GI BLEED Encounters Encounter Location Date Provider [place] [facility] [place] [address] [place], [place] [phone] 03/22/2024 Rainer Roa Jr Plan Of Treatment No Information Progress Notes * KERMIT BECKHAMODOB: [birth year] (84 yo M)Acc No.[id number]:03/22/2024 EGD and COL/MAC Patient: SOREN JASON Provider: Katalina Roa MD :1940 A ge:83 Y S ex:Male Date:03/22/2024 Address:[address] [place], [place] [phone] Pcp:Ria Bryant MD Subjective: * Chief Complaints: * G I BLEED Billing Information: * Procedure Codes: * The named appointment provid er may or may not be the originator of this progress note, and it is not deemed complete until electronically signed by the appointment provider. Sign off status: Pending * Provider: Katalina Roa MD Date: 0 03/22/2024 Generated for Lisa tyler/Aliya/Eamonsmitting on: 10/13/2024 08:25 AM EST
--- OUTSIDE RECORDS SUMMARY | 2025-08-13 08:25 | XMS_ITS | Patient Health Record ---
Author Organization [facility] Address [address] [place] [address] Care Team Providers Care Library Associate Name Role Phone Annette GUNDERSON, Ria Primary Care Provider Rainer Schaffer Jr Unavailable [phone] Reason For Referral No Information Problems Problem Type SNOMED Code ICD Code Onset Dates Problem Status W/U Status Risk Notes Problem Iron deficiency anemia (00684810) Iron deficiency anemia (D50.9) Active confirmed Problem Gastritis (0595816) Gastritis (K29.70) Active confirmed Plan Of Treatment No Information Insurance Providers Payer Name Payer Address Payer Phone Subscriber Number Group Number Insured Name Patient Relationship to Insured Coverage Start Date Coverage End Date MEDICARE OF [place] [address] [place] [address] [phone] [id number] KERMIT BECKHAMO Self - patient is the insured MED[employer] ATTN CLAIMS [address] [place] [address] [id number] CHAPINCITO SOREN Self - patient is the insured
--- OUTSIDE RECORDS SUMMARY | 2025-08-13 08:25 | XMS_ITS | Clinical Summary ---
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 4 Active nitroglycerin (NITROSTAT) 0.4 mg SL tablet [...] Take 1-2 tablets daily as prescribed by [facility]. 180 tablet 3 5 Active aspirin 81 mg EC tablet Take 1 tablet (81 mg total) by mouth 1 (one) time each day. Active insulin glargine,hum.r ec.anlog (Basaglar KwikPen U-100 Insulin) 100 unit/mL (3 mL) injection pen Inject 10 Units under the skin at bedtime. Active glipiZIDE (GLUCOTROL XL) 2.5 mg 24 hr tablet Take 1 tablet (2.5 mg total) by mouth 1 (one) time each day. Do not crush, chew, or split. Active metFORMIN 750 mg tablet Take 1 tablet by mouth 2 (two) times a day. Active insulin aspart (NovoLOG) 100 unit/mL injection Inject 30 Units under the skin 3 (three) times a day before meals. -Administer within 5 minutes of a meal Active glipiZIDE (GLUCOTROL) 10 mg tablet Take 1 tablet (10 mg total) by mouth 2 (two) times a day before meals. 9 08/01/20 25 Discontinu ed(Prescri lino Discontinu ed) insulin glargine (LANTUS) 100 unit/mL injection Inject 10 Units under the skin at bedtime. 08/01/20 25 Discontinu ed(Prescri lino Discontinu ed) metFORMIN (GLUCOPHAGE) 500 mg tablet Take 1 tablet (500 mg total) by mouth 2 (two) times a day with meals. 08/01/20 25 Discontinu ed(Prescri lino Discontinu ed) Active Problems Problem Noted Date Diagnosed Date [...] prefer to try Coumadin. Assessment & Plan (07/30/2025 9:44 AM EST): He denies any perception of recurrence of arrhythmia. We will continue to monitor overall burden via his remote device. He is anticoagulated on Coumadin for stroke reduction. Educated on risks and benefits of continuing with anticoagulation including increased risk for hemorrhage and decreased risk for stroke. Encouraged to seek emergent medical attention should the patient sustain a fall involving a head strike. The patient understands these risks and agrees to continue. Assessment & Plan (08/23/2024 12:06 PM EST): [...] lead HTN (hypertension) 03/18/2023 Assessment & Plan (07/30/2025 9:44 AM EST): Mildly elevated during today's exam with a reading of 138/78. Continue current medications. He will be mindful of his sodium intake and continue with diet lifestyle modification to help further reduce blood pressure. Assessment & Plan (02/08/2025 3:33 PM EDT): [...] symptoms of volume overload. Assessment & Plan (07/30/2025 9:44 AM EST): He is euvolemic upon exam today. He will continue carvedilol and lisinopril. Unclear whether or not the patient is taking furosemide however should be available to use on an as needed basis. Encouraged to continue to follow a low-sodium diet and perform daily weights. Patient will reach out to our office with a weight gain of 2 pounds in 1 day or 5 pounds in 5 days accompanied by worsening peripheral edema, shortness of breath or abdominal distention. We will update surveillance echocardiogram to evaluate for LVEF. Orders: Transthoracic echocardiogram (TTE) complete with PRN contrast, bubble, strain, and 3D order panel; Future perflutren lipid microsphere (DEFINITY) 1.3 mL in sodium chloride 0.9% 8.7 mL injection ECG 12 lead Assessment & Plan (08/23/2024 12:06 PM EST): [...] adenoma, left 10/02/2018 DVT (deep venous thrombosis) ([facility] V24, CMS/ CC V28) 05/20/2018 Overview (06/27/2024): 04/18/2018 per [...] wall and septum. CABG 2008. Cardiomyopathy, alcoholic ([facility] V24, CMS/HCC V28) 07/10/2008 Ventricular tachyarrhythmia ([facility] V24, CMS/HC C V28) 07/10/2008 Overview (06/27/2024): Pacer defibrillator Assessment & Plan (08/23/2024 12:06 PM EST): Will continue to monitor overall burden with remote device.At this time he will continue on his current dose of carvedilol Sinoatrial node dysfunction (CMS/HCC V24, CMS/HC C V28) 07/10/2008 Overview (06/27/2024): No telephonic monitoring - no landline Dr. Brown Revised 2014 Assessment & Plan (07/30/2025 9:44 AM EST): Patient has a dual-chamber Medtronic Evera S. We are monthly monitoring for ALHAJI. Last device check from July 28 revealed 2 months until ALHAJI without any sustained alerts or arrhythmias. Assessment & Plan (08/23/2024 12:06 PM EST): He continues to follow closely with our device clinic. Last remote device download from May 2024 revealed predominantly atrial pacing and normal device function. Hyperlipidemia 08/22/2006 Assessment & Plan (07/30/2025 9:44 AM EST): Continue Lipitor 40 mg be mindful of dietary fat intake goal LDL less than 70 in the setting of coronary disease. Can consider updating fasting lipid profile prior to his next in office visit list already performed by his PCP. Assessment & Plan (02/08/2025 3:33 PM EDT): Continue his current dose of statin therapy. Goal LDL less than 70. Can consider updating fasting lipid profile prior to his next in office visit last already performed by his PCP. Coronary artery disease 06/09/2006 Overview (06/27/2024): MT 1998 stent LAD 2004 EF 45% Last [...] but he flatly declines. Assessment & Plan (07/30/2025 9:44 AM EST): He does endorse episodes of chest tightness and shortness of breath which can happen at rest or with exertion. The patient is not bothered by these episodes and his daughter is the one who brought it up during our visit today. He informs me he takes a few deep breaths and his chest tightness goes away. He has not had any reason to use his sublingual nitro. He will continue on carvedilol, atorvastatin and aspirin. We will update echocardiogram to evaluate for any wall motion abnormalities or reduction in LVEF. Could consider stress testing however will await results of echo. Instructed to call 911 or go to the emergency room should the patient begin to experience chest pain or pressure lasting greater than 10 minutes does not resolve with rest. We discussed the use of nitroglycerin and went to call the ambulance. Orders: Transthoracic echocardiogram (TTE) complete with PRN contrast, bubble, strain, and 3D order panel; Future perflutren lipid microsphere (DEFINITY) 1.3 mL in sodium chloride 0.9% 8.7 mL injection ECG 12 lead Assessment & Plan (02/08/2025 3:33 PM EDT): [...] Encounters Date Type Department Care Team Description 07/30/2025 9:10 AM EST Office Visit [facility] [address] [place] [address] Adilene Lindsey NP Coronary artery disease due to lipid rich plaque (Primary Dx); Ischemic cardiomyopathy; Sinoatrial node dysfunction (CMS/HCC V24, CMS/HCC V28); Atrial fibrillation, unspecified type (CMS/HCC V24, CMS/HCC V28); Primary hypertension; Hyperlipidemia, unspecified hyperlipidemia type 07/28/2025 6:10 AM EST Ancillary Procedure [facility] [address] [place] [address] 06/29/2025 2:25 PM EDT Ancillary Procedure [facility] [address] [place] [address] 06/19/2025 12:40 PM EDT Ancillary Procedure [facility] [address] [place] [address] from Last 3 Months Immunizations Immunization Administration [...] Coronary atherosclerosis of unspecified type of vessel, [place] or graft 06/09/2006 DX:Coronary atherosclerosis of unspecified type of vessel, [place] or graft; COMMENT: MT 1998 Alcohol abuse, [...] Sign Reading Time Taken Comments Blood Pressure 138/78 07/30/2025 9:16 AM EST Pulse 78 07/30/2025 9:16 AM EST Temperature - - Respiratory Rate - - Oxygen Saturation 97% 07/30/2025 9:16 AM EST Inhaled Oxygen Concentration - - Weight 64 kg (141 lb) 07/30/2025 9:16 AM EST Height 165.1 cm (5' 5 ) 07/30/2025 9:16 AM EST Body Mass Index 23.46 07/30/2025 9:16 AM EST Plan of Treatment Upcoming Encounters Date Type Department Care Team (Late st Contact Info) Description 10/10/2025 9:00 AM EST Ancillary Procedure [facility] [address] [place] [address] 11/20/2025 2:30 PM EST Ancillary Procedure [facility] [address] [place] [address] Health Maintenance Due Date Last Done Comments [...] Blood Test 03/10/2025 03/10/2024, 03/10/2024 COVID-19 Vaccine ( season) 2025 06/04/2024, 08/30/2021, 12/31/2020, Additional history [...] this topic Medical Devices Implanted Type Area Training Development Director Device Identifier Shelf Expiration Date Model / Serial / Lot Medt-Card Sabino Gutierrez Dr [id number] Implanted:08/20 (Quantity not on file) Cardiac ICD MEDTR[employer]IC - CARDIAC RHYTH-CRDM SABINO Gutierrez DR, [id number] / [id number] / Procedures Procedure Name Priority Date/Time Associated Diagnosis Comments ECG 12-LEAD Routine 07/30/2025 9:44 AM EST Coronary artery disease due to lipid rich plaque Ischemic cardiomyopathy CARDIAC DEVICE CHECK- REMOTE- MURJ Routine 07/28/2025 6:09 AM EST CARDIAC DEVICE CHECK- REMOTE- MURJ Routine 06/29/2025 2:21 PM EDT CARDIAC DEVICE CHECK- REMOTE- MURJ Routine 06/19/2025 12:35 PM EDT ANNUAL BMP BLOOD TEST Routine 03/10/2024 URINE ALBUMIN CREATININE RATIO Routine 05/01/2019 HEMOGLOBIN A1C Routine 09/22/2018 LIPID PANEL Routine 05/09/2018 from Last 3 Months or Most Recently Relevant to Health Maintenance Results * ECG 12 lead (07/30/2025 9:44 AM EST) Ventricular Rate ECG 61 BPM GEMUSE Atrial Rate 61 BPM GEMUSE P-R Interval 324 ms GEMUSE QRS Duration 110 ms GEMUSE Q-T Interval 432 ms GEMUSE QTc 434 ms GEMUSE P Wave [place] 34 degrees GEMUSE R [place] 49 degrees GEMUSE T [place] -121 degrees GEMUSE ECG Interpretation Atrial-paced rhythm with prolonged AV conduction with occasional ventricular-pa francesca complexes Confirmed by MD Hendrickson Christopher ([id number]) on 08/02/2025 12:56:47 PM GEMUSE 07/30/2025 9:32 AM EST 08/02/2025 12:56 PM EST us Adilene Lindsey NP ECG ORDERABLES Edited Result - Final GEMUSE * Cardiac device check - Remote- MURJ (07/28/2025 6:09 AM EST) Only the most recent of3 resultswithin the time period is included. Date Time Interrogation Session [id number] CV DEVICE CHECK Type Interrogation Session Remote CV DEVICE CHECK Implantable Pulse Generator Training Development Director MDT CV DEVICE CHECK Implantable Pulse Generator Type ICD CV DEVICE CHECK Implantable Pulse Generator Model Sabino Gutierrez [id number] CV DEVICE CHECK Implantable Pulse Generator Serial Number [id number] CV DEVICE CHECK Implantable Pulse Generator Implant Date [id number] CV DEVICE CHECK Battery Remaining Longevity 2.0 CV DEVICE CHECK Battery Voltage 2.810 CV D EVICE CHECK Battery CLIENT ASSOCIATE Trigger 2.727 CV DEVICE CHECK Battery Status Middle of Service CV DEVICE CHECK Capacitor Charge Time 4.564 CV DEVICE CHECK Leonard Statistic RA Percent Paced 96.90 CV DEVICE CHECK Leonard Statistic RV Percent Paced 9.13 CV DEVICE CHECK Atrial Tachy Statistic AT/AF [employer] Percent 0.00 CV DEVICE CHECK Lead Channel Sensing Intrinsic Amplitude 1.375 CV DEVICE CHECK Lead Channel Setting Sensing [...] DEVICE CHECK Lead Channel Sensing Intrinsic Amplitude 8.750 CV DEVICE CHECK Lead Channel Setting Sensing Sensitivity 0.30 CV DEVICE CHECK Lead Channel Impedance Value 342 CV DEVICE CHECK Lead Channel Pacing Threshold Amplitude 0.875 CV DEVICE CHECK Lead Channel Pacing Threshold Pulse Width 0.4 CV DEVICE CHECK Lead Channel RV Pacing Threshold Date 2025-07-26 CV DEVICE CHECK Lead Channel Setting Pacing [...] 0 CV DEVICE CHECK RV HV Impedance 59 CV D EVICE CHECK Zone Setting Type [...] Anatomical Region Laterality Modality Device Interroga tion 07/26/2025 1:24 AM EST Impressions 07/27/2025 11:33 AM EST Normal Remote: With Events Monthly for ALHAJI * Normal Device Function * Events or Alerts: 2 * VT episodes. longest 13 beats * Battery: OK, 2 mos * Sensing, impedance and thresholds reviewed * Programmed parameters reviewed * Presenting rhythm reviewed * Heart Rate Histograms reviewed Narrative Procedure Note Benja Brown MD - 07/28/2025 IMPRESSION: Normal Remote: With Events Monthly for ALHAJI * Normal Device Function * Events or Alerts: 2 * VT episodes. longest 13 beats * Battery: OK, 2 mos * Sensing, impedance and thresholds reviewed * Programmed parameters reviewed * Presenting rhythm reviewed * Heart Rate Histograms reviewed Result [facility] Benja Brown MD CV IMPLANTABLE CARDIAC DEVICE PROCEDURES Final Result * Annual BMP Blood Test (03/10/2024) Pathologist [facility] Annual BMP Blood Test abstracted Result [facility] Provider HEALTH MAINTENANCE Final Result * Urine Albumin Creatinine Ratio (05/01/2019) [facility] Urine Albumin Creatinine Ratio abstracted Result [facility] Historical Provider HEALTH MAINTENANCE Final Result * (ABNORMAL) Hemoglobin A1c (09/22/2018) [facility] Hemoglobin A1C 8.2(A) <=6.5 % Blood Venous blood specimen / Unknown Result [facility] Provider LAB BLOOD ORDERABLES Gini l [...] Relevant to Health Maintenance Insurance MEDICARE [facility] Care Teams 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
[2025-08-13 08:36] LABS: Prothrombin Time Whole Bld POC 37.7 sec (11.1-13.5); ~PT, ~INR - Anti Coag Clinic 3.1 (0.9-1.1)
--- NOTE | 2025-08-13 08:37 | MHC.OFFVISCO ---
Intake Intake Visit Reasons: Anticoagulation Allergies isosorbide Adverse Reaction (Unknown, Verified 08/13/25 08:31) dizziness Medication List - Last Reconciled 08/13/25 by Sherie Ramirez, DUC atorvastatin 40 mg PO DAILY blood sugar diagnostic (FreeStyle Precision Henrique Strips) As directed blood-glucose sensor (FreeStyle Wilian 3 Plus Sensor device) As directed blood-glucose,etl analyst,cont (FreeStyle Wilian 3 [place]) As directed carvedilol 12.5 mg PO BID furosemide 20 mg PO DAILY glipizide 2.5 mg PO QAM insulin glargine (Basaglar KwikPen U-100 Insulin) 8 units subcut QAM lisinopril 10 mg PO DAILY magnesium oxide 400 mg PO BID metformin ER 750 mg PO BID nitroglycerin 0.4 mg sublingual DAILY PRN omeprazole 20 mg PO DAILY@0630 30 days sacubitril-valsartan 24-26 mg (Entresto) 1 tab PO BID warfarin 5 mg See Protocol PO DAILY@1800 Nursing Note INR: 3.1 out of therapeutic range of 2-3 Medications and supplements reviewed Patient status: no changes Medications or supplements: no changes Diet: usual diet for pt Denies any signs and symptoms of bleeding or clotting or unusual bruising Bleeding, bruising, clotting discussed Nutritional guidance given: to have a serving of greens today Dose: 7.5mg X 6 days and 5mg X 1 day (Wed) F/U INR Date: 4 weeks?? Patient verbalizing understanding of instructions given. Anti-Coag Initial Assessment Social Hx Patient Tobacco Use Status: Never used Tobacco alcohol intake: former Alcohol intake frequency: does not drink Cardiovascular Hx: HTN, Angina, UT, Arrhythmias, Cardiomyopathy and Other Endocrine Hx: Diabetes Blood Disorder Hx: Hyperlipidemia Hx: Kidney Disease Cancer HX: No Psych. Illness/Depression: Yes Coding Level of Care Code Est Patient Level 1 Diagnoses Current use of anticoagulant therapy Z79.01 Assessment & Plan Assessment & Plan (1) Current use of anticoagulant therapy: Code(s): Z79.01 - residential (current) use of anticoagulants
== END 2025-08-13 08:40 | disposition home or self-care (01) ==
LOC: HO.ACS 08:17
PROVIDERS: PCP Internal Medicine; Visit Provider Internal Medicine Medical Oncology
DX: Z79.01 Long term (current) use of anticoagulants (principal)

== ENCOUNTER → 2025-08-13 08:17 | Outpatient (BNVA) | payer MEDICARE, SELFPAY | PROVIDERS: PCP Internal Medicine; Visit Provider Internal Medicine Medical Oncology | DX: I48.0 Paroxysmal atrial fibrillation (principal); Z51.81 Encounter for therapeutic drug level monitoring; Z79.01 Long term (current) use of anticoagulants | CPT/HCPCS: 85610; 99211 ==

== ENCOUNTER 2025-09-10 08:16 | Outpatient (AMB) | payer MEDICARE, SELFPAY ==
--- OUTSIDE RECORDS SUMMARY | 2024-03-22 08:00 | XMS_ITS ---
Author Organization [facility] Address [address] [place] [address] Care Team Providers Care Structured Cabling Technician Name Role Phone Ria Bryant MD Primary Care Provider Boyd Roa Jr, Rainer Unavailable [phone] REASON FOR VISIT GI BLEED Encounters Encounter Location Date Provider Diagnosis [facility] [place] [address] [place], [place] [phone] 03/22/2024 aRiner Roa Jr Plan Of Treatment No Information Progress Notes * KERMIT BECKHAMODOB: [birth year] (84 yo M)Acc No.[id number]:03/22/2024 EGD and COL/MAC Patient: SOREN JASON Provider: Katalina Roa MD :1940 A ge:83 Y S ex:Male Date:03/22/2024 Address:[address] [place], [place] [phone] Pcp:Ria Bryant MD Subjective: * Chief Complaints: * G I BLEED Billing Information: * Procedure Codes: * The named appointment provid er may or may not be the originator of this progress note, and it is not deemed complete until electronically signed by the appointment provider. Sign off status: Pending * Provider: Katalina Roa MD Date: 0 03/22/2024 Generated for Lisa tyler/Aliya/Eamonsmitting on: 11/11/2024 08:21 AM EST
--- OUTSIDE RECORDS SUMMARY | 2025-09-05 23:59 | XMS_ITS | Continuity of Care Document ---
Author Organization [facility] Address [address] [place] [address]- Care Team Providers Care Timber Hewer Name Role Phone Troy GUNDERSON, Yessenia Primary Care Physician Encounter [facility] Date(s): 08/06/25 - 09/05/25 [facility] [address] [place], [place] [address] Encounter Type: Triage Allergies, Adverse Reactions, Alerts [...] virus vaccine, inactivated 06/19/05 Casey rded SARS-CoV-2(COVID-19)mRNA-LNP vac([id number]) 06/04/24 Recorded tetanus-diphtheria toxoids (Td) 3 04/29/23 Given tetanus-diphtheria toxoids (Td) 09/02/10 Recorded [id number] 12y+ bivalent booster vax 07/29/22 Given SARS-CoV-2 [...] 1Result Comment: [facility] 44538-153-87 2Result Comment: Patient tollerated well 3Result Comment: [facility] [address]-3 Medications Ascriptin Enteric 81 mg, By Mouth, Daily, Refills 0, Tot. Refills 0, 11/16/07 6:08:35 PM EST Start Date: 11/16/07 Status: Ordered Medication Dispense Status: Completed Total Allowed Fills: 1 Fills Dispensed: 0 atorvastatin 40 mg oral tablet 1 tablet, By Mouth, Daily, # 90 tablet, 6 Refills, Maintenance, 06/12/25 9:54:00 AM EDT, [facility], 165, cm, 06/12/25 9:18:00 EDT, Height, 62.7, kg, 06/12/25 9:17:00 EDT, Dry Weight Start Date: 06/12/25 Status: Ordered Medication Dispense Status: Completed Quantity: 90.0 Unit: tablet Total Allowed Fills: 7 Fills Dispensed: 0 Basaglar KwikPen 100 units/mL subcutaneous solution = 5 units, Subcutaneous Injection, Daily at bedtime, 90 day supplies, # 9 mL, 3 Refills, Maintenance, 03/28/25 11:40:00 AM EDT, Solution, [facility], Partial fill upon [...] times a day, # 180 tablet, Refills 6, Tot. Refills 6, Maintenance, 06/12/25 9:54:00 AM EDT, Route to Pharmacy Electronically, [facility], Partial fill upon patient request if the prescription is for a schedule II opioid drug., 165, cm, 06/12/25 9:18:00 EDT, Height, 62.7, kg, 06/12/25 9:17:00 EDT, Dry Weight Start Date: 06/12/25 Status: Ordered Medication Dispense Status: Completed Quantity: 180.0 Unit: tablet Total Allowed Fills: 7 Fills Dispensed: 0 FreeStyle Wilian 3 Plus Sensors See Instructions, # 6 each, Refills 3, Tot. Refills 3, Maintenance, change every 15 days, 07/06/25 1:50:00 PM EDT, Supply, 165, cm, 06/12/25 10:08:00 EDT, Height, 62.7, kg, 06/12/25 9:17:00 EDT, Dry Weight Start Date: 07/06/25 Status: Ordered Medication Dispense Status: Completed Quantity: 6.0 Unit: each Total Allowed Fills: 4 Fills Dispensed: 0 Indications: Type 2 diabetes mellitus with hyperglycemia; FreeStyle Wilian 3 [place] See Instructions, # 1 each, Maintenance, to [...] Total Allowed Fills: 1 Fills Dispensed: 0 glipizide 2.5 mg oral tablet 1 tablet = 2.5 mg, By Mouth, Daily, 30 minutes before breakfast, # 30 tablet, 3 Refills, Maintenance, 06/12/25 9:44:00 AM EDT, Tablet, [facility], Partial fill upon patient requestif the prescription is for a schedule II opioid drug., 165, cm, 06/12/25 9:18:00 EDT, Height, 62.7,kg, 06/12/25 9:17:00 EDT, Dry Weight Start Date: 06/12/25 Status: Ordered Medication Dispense Status: Completed Quantity: 30.0 Unit: tablet Total Allowed Fills: 4 Fills Dispensed: 0 glucose 4 gm oral tablet, chewable 4 tablet = 16 Gm, Chew, Once, PRN for low blood sugar, # 50 tablet, 0 Refills, Soft Stop, 02/26/25 9:46:00 AM EDT, Chew Tablet, [facility], Partial fill [...] tablet, Refills 6, Tot. Refills 6, Maintenance, 06/12/25 9:54:00 AMEDT, Route to Pharmacy Electronically, [facility], 165, cm, 06/12/25 9:18:00 EDT, Height, 62.7, kg, 06/12/25 9:17:00 EDT, Dry Weight Start Date: 06/12/25 Status: Ordered Medication Dispense Status: Completed Quantity: 90.0 Unit: tablet Total Allowed Fills: 7 Fills Dispensed: 0 magnesium oxide 400 mg oral tablet 1 tablet, By Mouth, 2 times a day, # 60 tablet, 0 Refills, Maintenance, 08/13/25 8:47:00 AM EST, [facility], 165, cm, 06/12/25 10:08:00 EDT, Height, 62.7, kg, 06/12/25 9:17:00 EDT, Dry Weight Start Date: 08/13/25 Status: Ordered Medication Dispense Status: Completed Quantity: 60.0 Unit: tablet Total Allowed Fills: 1 Fills Dispensed: 0 metFORMIN 750 mg oral tablet, extended release 1 tablet = 750 mg, By Mouth, 2 times a day, # 180 tablet, 6 Refills, Maintenance, 06/12/25 9:54:00 AM EDT, ER Tablet, [facility], Partial fill upon patient request if the prescription is for a schedule II opioid drug. changing from 500mg ER dose to help with adherence., 165, cm, 0 06/12/25 9:18:00 EDT, Height, 62.7, kg, 06/12/25 9:17:00 EDT, Dry Weight Start Date: 06/12/25 Stop Date: 03/04/27 Status: Ordered Medication Dispense Status: Completed Quantity: 180.0 Unit: tablet Total Allowed Fills: 7 Fills Dispensed: 0 Indications: Type 2 diabetes mellitus with hyperglycemia; Nitrostat 0.4 mg sublingual tablet 1 tablet = 0.4 mg, Sublingual, Every 5 minutes, PRN Chest Pain, # 100 tablet, 0 Refills, Maintenance, 11/03/19 4:02:00 PM EST, Tablet, [id number], 166, cm, 11/03/19 15:28:00 EST, Height, 65.3, kg, 11/01/19 22:48:00 EST, Dry Weight Start Date: 11/03/19 Stop Date: 12/03/19 Status: Ordered Medication Dispense Status: Completed Quantity: 100.0 Unit: tablet Total Allowed Fills: 1 Fills Dispensed: 0 One Touch Ultra Test [...] Allowed Fills: 6 Fills Dispensed: 0 Pen [place], 30 G x 8 mm BD Ultra [...] Smoking Status Never smoker entered on: 02/12/16 Sexual Orientation Self described orien tation: ; Straight or heterosexual Sex Sex Representation Male (finding) Patient Care [...] Care Nurse Name: Yesy Hylton RN Position: [facility] RN Member Role: Primary Care Nurse Name: Yessenia Simmons MD Position: [facility] Physician - Primary Care Member Role: PCP Address: [address] [place] [address] Adult & Pediatric Medicine [address] Telecom: Care Team Related Persons Name: MARK WELLINGTON Name: FANY CASE Insurance Providers Guarantor name: SOREN LOVEA Health Plan Information #: 1 Payer: MEDICARE B Payer Identifier: NA Member Number: [id number] Group Number: [id number] Subscriber Identifier: TERRELL Relationship to Subscriber: self Coverage Type: NA Coverage Verification Date: NA Telecom: NA Address: Health Plan Information #: 2 Payer: [employer] SECONDARY ONLY Payer Identifier: NA Member Number: [id number] Group Number: NA Subscriber Identifier: NA Relationship to Subscriber: self Coverage Type: Medicare Other Coverage Verification Date: NA Telecom: NA Address:
--- OUTSIDE RECORDS SUMMARY | 2025-09-10 08:21 | XMS_ITS | Clinical Summary ---
Author Organization [address] [place] [address] Address [address] [place] [address] Phone Care Team Providers Care Physical Therapist Name Role Phone Yessenia Simmons MD Primary Care Provider [phone] Allergies No known active allergies Medications lancets [...] Take 1-2 tablets daily as prescribed by [facility]. 180 tablet 3 5 Active aspirin 81 mg EC tablet Take 1 tablet (81 mg total) by mouth 1 (one) time each day. Active insulin glargine,hum.re c.anlog (Basaglar KwikPen U-100 Insulin) 100 unit/mL (3 [...] within 5 minutes of a meal Active Active Problems Problem Noted Date Diagnosed [...] Coronary artery disease 06/09/2006 Overview (06/27/2024): [place] 1999 stent LAD 2005 EF 45% Last Assessment & Plan: Known [...] Encounters Date Type Department Care Team Description 09/04/2025 1:30 PM EST Ancillary Procedure [facility] - [address] [place] [address] 07/30/2025 9:10 AM EST Office Visit [facility] - [address] [place] [address] Adilene Lindsey NP Coronary artery disease due to lipid rich plaque (Primary Dx); Ischemic cardiomyopathy; Sinoatrial node dysfunction (CMS/HCC V24, CMS/HCC V28); Atrial fibrillation, unspecified type (CMS/HCC V24, CMS/HCC V28); Primary hypertension; Hyperlipidemia, unspecified hyperlipidemia type 07/28/2025 6:10 AM EST Ancillary Procedure [facility] - [address] [place] [address] 06/29/2025 2:25 PM EDT Ancillary Procedure [facility] - [address] [place] [address] 06/19/2025 12:40 PM EDT Ancillary Procedure [facility] - [address] [facility] [address] [place] [address] from Last 3 Months Immunizations Immunization Administration [...] Coronary atherosclerosis of unspecified type of vessel, [place] or graft 06/09/2006 DX:Coronary atherosclerosis of unspecified type of vessel, [place] or graft; COMMENT: [place] 1998 Alcohol abuse, [...] on file Sexual Orientation Not on file Last Filed Vital Signs Vital Sign Reading [...] Description 10/10/2025 9:00 AM EST Ancillary Procedure [facility] - [address] [place] [address] 11/20/2025 2:30 PM EST Ancillary Procedure [facility] - [address] [place] [address] Health Maintenance Due Date Last Done Comments [...] 03/10/2024, 03/10/2024 COVID-19 Vaccine ( season) 2025 09/04/2025, 06/04/2024, 08/30/2021, Additional history exists Influenza Vaccine (#1) 2025 [...] this topic Medical Devices Implanted Type Area Rental Clerk Tool And Equipment Device Identifier Shelf Expiration Date Model / Serial / Lot Medt-Card Oumou Gutierrez Dr [id number] Implanted:08/20 (Quantity not on file) Cardiac ICD MED[employer] - CARDIAC RHYTH-CRDM OUMOU Gutierrez DR [id number] / [id number] / Procedures Procedure Name Priority Date/Time Associated Diagnosis Comments CARDIAC DEVICE CHECK- REMOTE- MURJ Routine 09/04/2025 1:27 PM EST ECG 12-LEAD Routine 07/30/2025 9:44 AM EST [...] * Cardiac device check - Remote- MURJ (09/04/2025 1:27 PM EST) Only the most recent of4 resultswithin the time period is included. Date Time Interrogation Session [id number] CV DEVICE CHECK Type Interrogation Session Remote CV DEVICE CHECK Implantable Pulse Generator Rental [employer] Equipment MDT CV DEVICE CHECK Implantable Pulse Generator Type ICD CV DEVICE CHECK Implantable Pulse Generator Model Filia S [id number] CV DEVICE CHECK Implantable Pulse Generator Serial Number [id number] CV DEVICE CHECK Implantable Pulse Generator Implant Date [id number] CV DEVICE CHECK Battery Remaining Longevity 1.0 CV DEVICE CHECK Battery Voltage 2.810 CV D EVICE CHECK Battery C S S REPRESENTATIVE Trigger 2.727 CV DEVICE CHECK Battery Status Middle of Service CV DEVICE CHECK Capacitor Charge Time 4.564 CV DEVICE CHECK Leonard Statistic RA Percent Paced 97.87 CV DEVICE CHECK Leonard Statistic RV Percent Paced 6.74 CV DEVICE CHECK Atrial Tachy Statistic AT/AF Landers Percent 0.00 CV DEVICE CHECK Lead Channel Sensing Intrinsic Amplitude 0.625 CV DEVICE CHECK Lead Channel Setting Sensing [...] CHECK Lead Channel RV Pacing Threshold Date 2025-08-24 CV DEVICE CHECK Lead Channel Setting Pacing [...] Anatomical Region Laterality Modality Device Interroga tion 08/25/2025 12:1 6 AM EST Impressions 09/04/2025 12:18 PM EST Normal Remote: No Events *Monthly for ALHAJI * Normal Device Function * Alerts or events: None * Battery: OK, 1 mos * Sensing, impedance and thresholds reviewed * Programmed parameters reviewed * Presenting rhythm reviewed * Heart Rate Histograms reviewed * No significant changes noted Narrative Procedure Note Benja Brown MD - 09/04/2025 IMPRESSION: Normal Remote: No Events *Monthly for ALHAJI * Normal Device Function * Alerts or events: None * Battery: OK, 1 mos * Sensing, impedance and thresholds reviewed * Programmed parameters reviewed * Presenting rhythm reviewed * Heart Rate Histograms reviewed * No significant changes noted Benja Brown MD CV IMPLANTABLE CARDIAC DEVICE PROCEDURES Final Result * ECG 12 lead (07/30/2025 9:44 AM EST) Ventricular Rate ECG 61 BPM GEMUSE Atrial Rate 61 BPM GEMUSE P-R Interval 324 ms GEMUSE QRS Duration 110 ms GEMUSE Q-T Interval 432 ms GEMUSE QTc 434 ms GEMUSE P Wave Gray 34 degrees GEMUSE R Gray 49 degrees GEMUSE T Gray -121 degrees GEMUSE ECG Interpretation Atrial-paced rhythm with prolonged AV conduction with occasional ventricular-pa francesca complexes Confirmed by MD Emeka Decatur ([id number]) on 08/02/2025 12:56:47 PM GEMUSE 07/30/2025 9:3 2 AM EST 08/02/2025 12:56 PM EST Result [facility] Adilene Lindsey SETUP TECHNICIAN ECG ORDERABLES Edited Result - Final GEMUSE * Annual BMP Blood Test (03/10/2024) Pathologist [facility] Annual BMP Blood Test abstracted Result [facility] Provider HEALTH MAINTENANCE Final Result * Urine Albumin Creatinine Ratio (05/01/2019) [facility] Urine Albumin Creatinine Ratio abstracted Result [facility] Historical Provider HEALTH MAINTENANCE Final Result * (ABNORMAL) Hemoglobin A1c (09/22/2018) [facility] Hemoglobin A1C 8.2(A) <=6.5 % Blood Venous blood specimen / Unknown Result [facility] Provider LAB BLOOD ORDERABLES Gini l Result * Lipid panel (05/09/2018) [facility] LDL/HDL Ratio 3 0 - 4 Triglycerides 65 0 - 150 mg/dL Cholesterol 146 0 - 200 mg/dL HDL 52 >=40 mg/dL LDL Cholesterol 81 0 - 100 mg/dL Blood Venous blood specimen / Unknown Result [facility] Provider LAB BLOOD ORDERABLES Gini l Result from Last 3 Months or Most Recently Relevant to Health Maintenance Insurance MEDICARE [facility] Care Teams Physical Therapist Relationship Specialty Start Date End Date Yessenia Simmons MD [id number] [place] [address] PCP - General Internal Medicine 07/30/25
--- OUTSIDE RECORDS SUMMARY | 2025-09-10 08:21 | XMS_ITS | Patient Health Record ---
Author Organization [facility] Address [address] [place] [address] Care Team Providers Care [employer] Name Role Phone Annette GUNDERSON, Ria Primary Care Provider Rainer Schaffer Jr Unavailable Reason For Referral No Information Problems Problem Type SNOMED Code ICD Code Onset Dates Problem Status W/U Status Risk Notes Problem Iron deficiency anemia (90243206) Iron deficiency anemia (D50.9) Active confirmed Problem Gastritis (1343322) Gastritis (K29.70) Active confirmed Plan Of Treatment No Information Insurance Providers Payer Name Payer Address Payer Phone Subscriber Number Group Number Insured Name Patient Relationship to Insured Coverage Start Date Coverage End Date MEDICARE OF [place] [address] [place] [address] [phone] [id number] KERMIT BECKHAMO Self - patient is the insured [employer] ATT[employer] CLAIMS [address] [place] [address] [phone] [id number] CHAPINCITO SOREN Self - patient is the insured
[2025-09-10 08:27] LABS: Prothrombin Time Whole Bld POC 21.6 sec (11.1-13.5); ~PT, ~INR - Anti Coag Clinic 1.8 (0.9-1.1)
--- NOTE | 2025-09-10 08:30 | MHC.OFFVISCO ---
Intake Intake Visit Reasons: Anticoagulation Allergies isosorbide Adverse Reaction (Unknown, Verified 09/10/25 08:22) dizziness Medication List - Last Reconciled 09/10/25 by Sherie Ramirez RN atorvastatin 40 mg PO DAILY blood sugar diagnostic (FreeStyle Precision Henrique Strips) As directed blood-glucose sensor (FreeStyle Wiilan 3 Plus Sensor device) As directed blood-glucose,drywall metal stud worker,cont (FreeStyle Wilian 3 Dewitt) As directed carvedilol 12.5 mg PO BID furosemide 20 mg PO DAILY glipizide 2.5 mg PO QAM insulin glargine (Basaglar KwikPen U-100 Insulin) 8 units subcut QAM lisinopril 10 mg PO DAILY magnesium oxide 400 mg PO BID metformin ER 750 mg PO BID nitroglycerin 0.4 mg sublingual DAILY PRN omeprazole 20 mg PO DAILY@0630 30 days sacubitril-valsartan 24-26 mg (Entresto) 1 tab PO BID warfarin 5 mg See Protocol PO DAILY@1800 Nursing Note INR: 1.8 out of therapeutic range of 2-3 Pt received the covid vaccine which can decrease the INR Medications and supplements reviewed No changes in health, diet, medications, or supplements, Denies any signs and symptoms of bleeding or bruising or clotting. Bleeding, bruising, clotting discussed Nutritional guidance given to avoid greens today Dose: increase today's dose from 7.5mg to 10mg then usual dose of 7.5mg X 6 days and 5mg X 1 day (Wed) F/U INR: 1 week Patient verbalizes understanding of instructions given Anti-Coag Initial Assessment Social Hx Patient Tobacco Use Status: Never used Tobacco alcohol intake: former Alcohol intake frequency: does not drink Cardiovascular Hx: HTN, Angina, [place], Arrhythmias, Cardiomyopathy and Other Endocrine Hx: Diabetes Blood Disorder Hx: Hyperlipidemia Hx: Kidney Disease Cancer HX: No Psych. Illness/Depression: Yes Coding Level of Care Code Est Patient Level 1 Diagnoses Current use of anticoagulant therapy Z79.01 Results AMB INR Fingerstick AMB INR Fingerstick 1.8 Last Edit by Sherie Ramirez RN on 09/10/25 08:29 interface delay Assessment & Plan Assessment & Plan (1) Current use of anticoagulant therapy: Code(s): Z79.01 - [facility] (current) use of anticoagulants
== END 2025-09-10 08:35 | disposition home or self-care (01) ==
LOC: HO.ACS 08:16
PROVIDERS: PCP Internal Medicine; Visit Provider Internal Medicine Medical Oncology
DX: Z79.01 Long term (current) use of anticoagulants (principal)

== ENCOUNTER → 2025-09-10 08:16 | Outpatient (BNVA) | payer MEDICARE, SELFPAY | PROVIDERS: PCP Internal Medicine; Visit Provider Internal Medicine Medical Oncology | DX: Z79.01 Long term (current) use of anticoagulants (principal) | CPT/HCPCS: 85610; 99211 ==

== ENCOUNTER 2025-09-14 17:58 | Emergency (ER) | payer MEDICARE, SELFPAY ==
--- NOTE | ~2025-09-14 | CT_ITS ---
CLINICAL HISTORY: lower abdominal pain CT abdomen and pelvis with contrast Comparison: CT/CT/SR - CT ABDOMEN PELVIS WITHOUT IV CONTRAST - 08/16/23 15:47 EST Findings: CT abdomen: Emphysematous changes in the lung bases without focal infiltrate. Multilevel degenerative disc disease and degenerative facet disease throughout the visualized thoracolumbar spine. No acute bony abnormality identified. ICD lead is seen within the right ventricle. Patient has undergone prior sternotomy. Mild marie chamber cardiac dilation, especially involving the left ventricle. Dense coronary artery calcification. No focal hepatic lesion. Main portal vein is patent. Spleen is unremarkable. No pancreatic mass or pancreatic ductal dilatation. No calcified gallstones. Unchanged low-density lesion within the left adrenal gland measuring 13 mm in round diameter. This is indicative of a adrenal adenoma in the patient's prior noncontrast study. Right adrenal gland is unremarkable. Symmetric enhancement of the kidneys. Unchanged areas of cortical scarring within the interpolar region and lower pole of the left kidney. No hydronephrosis or nephrolithiasis. Moderate fluid distention of the stomach with areas of hyperenhancement of the gastric mucosa and gastric wall thickening. There is a diverticulum of the 3rd portion of the duodenum. No dilated small bowel. Fat containing umbilical hernia. CT pelvis: Urinary bladder is prominently distended extending into the level of the upper pelvis. Viwyddvl-zv-[id number] amount of stool throughout the colon. No focal areas of colonic wall thickening are identified. Small volume free pelvic fluid. No free air. Fat containing bilateral inguinal hernias. IMPRESSION: 1. [id number]-tr-oysxk amount of stool throughout the colon without findings of obstruction. 2. Likely mild gastritis. 3. Unchanged left adrenal adenoma. This document has been electronically signed by: Kyle Sanchez MD on 09/15/2025 02:20:48
[2025-09-14 18:23] VITALS: BP 154/90; PULSE 73; RESP 20; TEMP 36.1; O2SAT 98; BMI 23.1
--- NOTE | 2025-09-14 18:23 | ED.ABDPAIN ---
HPI - Abdominal Pain General Chief Complaint: Abdominal Pain Stated Complaint: abdominal pain Time Seen by Provider: 09/14/25 23:28 Source: patient Mode of arrival: ambulatory Limitations: no limitations History of Present Illness ED Provider: Dr. Keith HPI narrative: This is a 84-year-old male history of CHF, CAD status post CABG, AFib on Coumadin presented to ER today for evaluation of lower abdominal pain. It started all of a sudden today. Patient's did endorse an episode of nausea however no vomiting no diarrhea. Denies any fever. Denies any chest pain or shortness of breath. Related Data Home Medications ?Medication ?Instructions ?Recorded ?Confirmed warfarin 5 mg tablet 5 mg PO DAILY@1800 06/14/23 09/10/25 magnesium oxide 400 mg (241.3 mg 400 mg PO BID 10/22/23 09/10/25 magnesium) tablet carvedilol 12.5 mg tablet 12.5 mg PO BID 03/21/24 09/10/25 furosemide 20 mg tablet 20 mg PO DAILY 03/21/24 09/10/25 sacubitril 24 mg-valsartan 26 mg 1 tab PO BID 04/21/24 09/10/25 tablet (Entresto) lisinopril 10 mg tablet 10 mg PO DAILY 06/30/24 09/10/25 blood sugar diagnostic (FreeStyle #10 ea 02/23/25 09/10/25 Precision Henrique Strips) blood-glucose sensor (FreeStyle #1 ea 02/23/25 09/10/25 Wilian 3 Plus Sensor device) blood-glucose,dope sprayer,cont #1 ea 02/23/25 09/10/25 (FreeStyle Wilian 3 [place]) metformin 750 mg tablet,extended 750 mg PO BID 02/23/25 09/10/25 release 24 hr insulin glargine 100 unit/mL (3 8 unit subcut QAM 03/02/25 09/10/25 mL) subcutaneous pen (Chauncey Cruz U-100 Insulin) nitroglycerin 0.4 mg sublingual 0.4 mg sublingual DAILY PRN pt 03/02/25 09/10/25 tablet glipizide 2.5 mg tablet 2.5 mg PO QAM 06/18/25 09/10/25 Previous Rx's ?Medication ?Instructions ?Recorded atorvastatin 40 mg tablet 40 mg PO DAILY #90 tabs 10/16/20 omeprazole 20 mg capsule,delayed 20 mg PO DAILY@0630 30 days #30 03/23/24 release caps lactulose 10 gram/15 mL oral 20 g (30 mL) PO TID 5 days #450 mL 09/15/25 solution Allergies Allergy/AdvReac Type Severity Reaction Status Date / Time isosorbide AdvReac Unknown dizziness Verified 09/14/25 18:25 Review of Systems Review of Systems Pertinent review of systems as mentioned in HPI. All other system otherwise negative. [facility] Past Medical History [facility] Narrative: Medical history as mentioned in HPI Medical History History of alcohol abuse Ischemic cardiomyopathy with implantable cardioverter-defibrillator (ICD) Hyperlipidemia HTN (hypertension) Diabetes mellitus CAD (coronary artery disease) Atrial fibrillation Current use of anticoagulant therapy Surgical History H/O heart surgery Family History Family History Unknown No problems noted. Sister Liver cancer Social History Social History Household Members: None Housing: House Housing Other:: [facility] [employer] [facility] - MARK Do you presently have visiting nurse or other home services: No Alcohol intake: former Patient Tobacco Use Status: Never used Tobacco Advance Directives: Yes Advance Directives on File: Yes Advance Directives Date on File: 08/16/23 Do you have a plan to hurt others: No Plan service: No Current occupational status: retired Current occupation: RETIRED 20 YEARS Current occupational exposures/hazards: No Physical Exam ED Exam Exam: General: Pleasant, no distress, interacting appropriately Head: Normacephalic, atraumatic ENT: oral mucosa moist, neck supple, no tracheal deviation Cardiovascular: regular rate, regular rhythm, no murmurs, rubbing, gallops Respiratory: CTAB, no wheeze, rales, rhonchi Gastrointestinal: Soft, non distended, lower abdominal tenderness on palpation Extremities: No limb pain or swelling, no calf tenderness Neurological: Awake and alert, no facial droop noted Skin: Warm and dry Psychiatric: Appropriate mood and thoughts Vital Signs: Vital Signs - 24 hr 09/14/25 18:23 09/14/25 20:10 09/15/25 03:20 Temperature 97.0 F 97.9 F 97.8 F Pulse Rate 73 67 76 Respiratory Rate 20 18 16 Blood Pressure 154/90 H 145/76 H 136/78 Pulse Oximetry 98 97 95 Oxygen Delivery Method Room Air Room Air Room Air BMI result Body Mass Index 23.1 Course Course Course Narrative: This is a Rapid Medical Exam performed in triage by Roxie Quevedo PA-C. Full HPI, ROS and PE to be performed by primary ED provider. 84-year-old male with a past medical history of anemia, AFib on Coumadin, defibrillator pacer, diabetes, CAD, HLD, HTN presenting to the ED c/o lower abdominal pain x this morning. Denies urinary symptoms, fever, chills, nausea/vomiting or diarrhea PE: Abdomen is soft with lower tenderness, no rebound or guarding Plan: Labs, UA Medical Decision Making Medical Decision Making MDM Narrative: 84-year-old male history of CAD status post CABG, CHF, hypertension, diabetes, AFib on warfarin presents to ER today for evaluation of lower abdominal tenderness. We will obtain abdominal lab work on the patient. We will obtain a CT abdomen and pelvis to evaluate for any signs of intra-abdominal pathologies. Patient does have slight tenderness power does not have any signs of acute surgical abdomen on my exam. Review patient's lab work. Does have some hypomagnesemia replete this with IV magnesium. EKG will be obtained. Continue to observe the patient at this time. No sign of STEMI on his EKG. He does have T-wave inversion in the lateral leads. Patient's CT imaging shows some free fluid in the abdomen. Unsure of the reason why there was free fluid. He does have large amount of constipation as well. Patient will be signed out to oncoming provider pending re-evaluation for his constipation. No sign of leukocytosis. Slight anemia at 13.1, patient's INR is appropriate at 2.1 4:34 AM 09/15/2025 (Dr. Isamar Hoff, D.O.) CT does not show evidence of acute process. He has a substantial amount of stool in his colon which could be contributing to his abdominal pain. Was given a dose of MiraLax, Tylenol for abdominal pain and plan will be to discharge home to follow up with primary care. Encouraged daily use of laxatives until he is having normal bowel movements every day that are soft. Encouraged increased fluid intake as well. Using shared decision making with patient and his daughter, plan for discharge home to follow-up with primary care and/or specialist. Patient understands and agrees with plan for discharge. Discharged home in stable condition. Differential Diagnosis Differential Diagnoses: The differential diagnosis associated with the presentation includes Diverticulitis, gastroenteritis, colitis Admission/Observation Consideration of admission/observation: Escalation of care including admission/observation considered Lab Data MDM Lab Attestation statement: I reviewed the patient's lab results. 09/14/25 18:48 09/14/25 18:48 Labs: Lab Results 09/14/25 09/15/25 09/15/25 Range/Units 18:48 00:10 03:22 WBC 7.8 (4.8-10.8) X10*3/uL RBC 4.24 L (4.60-5.80) X10*6/uL Hgb 13.1 L (14.0-18.0) g/dl Hct 38.8 L (42.0-52.0) % MCV 91.5 (80.0-98.0) fL MCH 30.9 (27.0-33.0) pg MCHC 33.8 (31.0-36.0) g/dl RDW 12.3 (11.0-16.0) % Plt Count 195 (160-400) X10*3/uL MPV 9.3 L (9.4-12.4) fL Immature Gran % (Auto) 0.4 (0.0-0.4) % Neut % (Auto) 80.5 H (45-73) % Lymph % (Auto) 11.3 L (20-40) % Hopkins % (Auto) 6.5 (2-11) % Eos % (Auto) 0.9 (0-4) % Baso % (Auto) 0.4 (0-2) % Lymph # (Auto) 0.9 L (1.2-4.9) X10*3/uL Hopkins # (Auto) 0.5 (0.1-1.2) X10*3/uL Eos # (Auto) 0.1 (0.0-0.4) X10*3/uL Baso # (Auto) 0.0 (0.0-0.2) X10*3/uL Abs Immat Gran (auto) 0.03 (0.00-0.03) X10*3/uL Absolute Neuts (auto) 6.3 (2.0-8.3) x10*3/uL Absolute Nucleated RBC 0.000 (0.0-0.012) X10*3/uL Nucleated RBC % (auto) 0.0 (0.0-0.2) /100WBC PT 25.7 H (11.2-13.5) SEC INR 2.1 H D (0.9-1.1) Sodium 137 (135-145) mmol/L Potassium 5.1 (3.3-5.1) mmol/L Chloride 102 (96-108) mmol/L Carbon Dioxide 29 (22-29) mmol/L Anion Gap 11 L (12-20) BUN 17 H (9-16) mg/dL Creatinine 1.02 (0.5-1.4) mg/dL Estim Creat Clear Calc 46.8 Estimated GFR > 60 Random Glucose 242 H (60-115) mg/dL Calcium 10.1 D (8.4-10.2) mg/dL Magnesium 1.4 L* (1.6-2.6) mg/dL Total Bilirubin 0.6 (0.0-1.0) mg/dL Direct Bilirubin 0.3 (0.0-0.5) mg/dL AST 30 (5-37) U/L ALT 34 (0-40) U/L Alkaline Phosphatase 115 (39-117) U/L Total Protein 7.0 (6.5-8.0) g/dL Albumin 4.3 (3.5-5.0) g/dL Lipase 34 (8-78) U/L Urine Color Yellow Urine Appearance Clear Urine pH 6.5 (5.0-9.0) Ur Specific [place] >= 1.030 H (1.005-1.025) Urine Protein Trace (Neg-Trace) mg/dL Urine Glucose (UA) 100 H (Negative) mg/dL Urine Ketones Negative (Negative) mg/dL Urine Blood Negative (Negative) Urine Nitrite Negative (Negative) Ur Leukocyte Esterase Negative (Negative) Independent Interpretation I performed an independent interpretation of an: CT Scan Radiology Impression Discussion of test interpretation with radiology: I have reviewed the radiologist's reading. Independent Historian Clinical information obtained from an independent historian. History obtained from or confirmed by: Other (Daughter) Prescription Management I considered prescription management with: Other (Laxatives) Medications Administered Discontinued Medications Generic Name Dose Route Start Last Admin Trade Name Miller PRN Reason Stop Dose Admin Acetaminophen 975 mg 09/15/25 03:23 09/15/25 03:31 Acetaminophen 325 Mg Tablet PO 09/15/25 03:24 975 mg ONCE ONE Administration Magnesium Sulfate 2 gm in 50 mls @ 50 mls/hr 09/14/25 23:31 09/15/25 01:52 Magnesium Sulfate/H2o IV 09/15/25 00:30 Infused ONCE ONE Infusion Iohexol 85 ml 09/15/25 00:31 09/15/25 00:31 Iohexol 350 Mg/Ml 100 Ml Infus..Btl IV 09/15/25 00:32 85 ml ONCE ONE Administration Ondansetron HCl 4 mg 09/14/25 20:12 09/14/25 20:15 Ondansetron Odt 4 Mg Tab.Rapdis TRANSLINGU 09/14/25 20:13 4 mg ONCE ONE Administration Polyethylene Glycol 17 gm 09/15/25 03:23 09/15/25 03:31 Polyethylene Glycol 3350 17 Gm Powd.Pack PO 09/15/25 03:24 17 gm ONCE ONE Administration Discharge Plan Discharge Clinical Impression: Abdominal pain Constipation Qualifiers: Constipation type: unspecified constipation type Qualified Code(s): K59.00 - Constipation, unspecified Patient Disposition: Home, Self-Care Instructions: Constipation (ED) Additional Instructions: Constipation Remedy 1 Lb prunes 1 Lb pitless dates 1 Lb raisins 16 teabags Smooth Move tea brewed in 2 cups water 1 Cup brown sugar 1 Cup lemon juice Mix in a motorcycle riding instructor Put in freezer (never completely freezes) Can be used as a spread on crackers, toast, etc. (about 1-2 tablespoons per dose) DIAGNOSIS & TREATMENT: You were seen in the Emergency Department for your abdominal pain. We performed laboratory work and a CT scan of your abdomen and pelvis which did not reveal any acute abnormalities that would explain your symptoms. FURTHER CARE: We have not found any emergent physical exam or lab abnormalities that would require admission to the hospital today. Many people who come to the ER with abdominal pain do not leave with a specific diagnosis at the end of their visit. In the Emergency Department we try to make sure that there is no emergent problem that needs surgery or antibiotics right now. This does not mean that your evaluation is complete--please be sure to follow up with your regular doctor as additional testing as an outpatient may be indicated Please be certain to drink plenty of fluids over the next several. You should advance your diet as tolerated. You may wish to start with the BRAT diet (bananas, rice, applesauce, toast). WHEN YOU SHOULD BE SEEN NEXT: Please follow-up with your primary care provider within the next 2-3 days for reevaluation of your symptoms. WHEN TO RETURN TO THE ED: Monitor your symptoms closely and return to the emergency department immediately for any new/worsening symptoms, worsening abdominal pain, pain which changes location (particularly if it moved to the right lower quadrant), nausea, vomiting, blood in your stool, black/tarry stools, chest pain, shortness of breath, fevers, chills, night sweats, you are unable to arrange follow-up care, or any other concerning symptoms. Prescriptions: New lactulose 10 gram/15 mL solution 20 g PO TID 5 Days Qty: 450 0RF No Action atorvastatin 40 mg tablet 40 mg PO DAILY Qty: 90 3RF carvedilol 12.5 mg tablet 12.5 mg PO BID Rx Instructions: must administer with a meal/food furosemide 20 mg tablet 20 mg PO DAILY omeprazole 20 mg Capsule,Delayed Release(Dr/Ec) 20 mg PO DAILY@0630 30 Days Qty: 30 0RF lisinopril 10 mg tablet 10 mg PO DAILY (DME) FreeStyle Wilian 3 [place] Misc See Rx Instructions .ROUTE QID Qty: 1 Rx Instructions: As directed (DME) FreeStyle Wilian 3 Plus Sensor Device See Rx Instructions .ROUTE QID Qty: 1 Rx Instructions: As directed (DME) FreeStyle Precision Henrique Strips Strip See Rx Instructions .ROUTE TID Qty: 10 Rx Instructions: As directed metformin 750 mg tablet extended release 24 hr 750 mg PO BID insulin glargine [Basaglar KwikPen U-100 Insulin] 100 unit/mL (3 mL) insulin pen 8 unit subcut QAM warfarin 5 mg tablet 5 mg PO DAILY@1800 Protocol: Dose Management Condition: Wednesday (Week One) Dose/Route: 7.5 mg Instruction: 1.5 x 5 mg tablets Condition: Wednesday Dose/Route: 10 mg Instruction: 2 x 5 mg tablets Condition: Wednesday Dose/Route: 7.5 mg Instruction: 1.5 x 5 mg tablets Condition: Wednesday Dose/Route: 5 mg Instruction: 1 x 5 mg tablet Condition: Dose/Route: 7.5 mg Instruction: 1.5 x 5 mg tablets Condition: Wednesday Dose/Route: 7.5 mg Instruction: 1.5 x 5 mg tablets Condition: Wednesday Dose/Route: 7.5 mg Instruction: 1.5 x 5 mg tablets Condition: Wednesday ( Two) Dose/Route: 7.5 mg Instruction: 1.5 x 5 mg tablets Condition: Wednesday Dose/Route: 7.5 mg Instruction: 1.5 x 5 mg tablets Condition: Wednesday Dose/Route: 7.5 mg Instruction: 1.5 x 5 mg tablets Condition: Wednesday Dose/Route: 5 mg Instruction: 1 x 5 mg tablet Condition: Dose/Route: 7.5 mg Instruction: 1.5 x 5 mg tablets Condition: Wednesday Dose/Route: 7.5 mg Instruction: 1.5 x 5 mg tablets Condition: Wednesday Dose/Route: 7.5 mg Instruction: 1.5 x 5 mg tablets Protocol Text: Adjustment Start Date: Wednesday09/10/25 INR Value: 1.8 INR Date: 09/10/25 Recheck Date: 09/17/25 Patient Comments: JUST INITIATED WARFARIN 06/11/23 magnesium oxide 400 mg (241.3 mg magnesium) tablet 400 mg PO BID Entresto 24-26 mg tablet 1 tab PO BID nitroglycerin 0.4 mg tablet, sublingual 0.4 mg sublingual DAILY PRN (Reason: pt) glipizide 2.5 mg tablet 2.5 mg PO QAM Print Language: Unable To Collect
[2025-09-14 18:54] LABS: MANUAL DIFF FLAG NO
[2025-09-14 19:01] LABS: Hematocrit 38.8 % (42.0-52.0); Hemoglobin 13.1 g/dl (14.0-18.0); Imm Gran Abs Auto 0.03 X10*3/uL (0.00-0.03); Imm Gran Pct Auto 0.4 % (0.0-0.4); Lymphocytes Absolute Auto 0.9 X10*3/uL (1.2-4.9); Mean Corpuscular HGB Conc 33.8 g/dl (31.0-36.0); Mean Corpuscular Hemoglobin 30.9 pg (27.0-33.0); Mean Corpuscular Volume 91.5 fL (80.0-98.0); NRBC Abs Auto 0.000 X10*3/uL (0.0-0.012); NRBC Pct Auto 0.0 /100WBC (0.0-0.2); Platelet Count 195 X10*3/uL (160-400); Red Blood Count 4.24 X10*6/uL (4.60-5.80); White Blood Count 7.8 X10*3/uL (4.8-10.8)
[2025-09-14 19:30] LABS: Alanine Aminotransferase 34 U/L (0-40); Albumin Level 4.3 g/dL (3.5-5.0); Alkaline Phosphatase 115 U/L (39-117); Anion Gap 11 (12-20); Aspartate Amino Transferase 30 U/L (5-37); Blood Urea Nitrogen 17 mg/dL (9-16); Calcium 10.1 mg/dL (8.4-10.2); Carbon Dioxide 29 mmol/L (22-29); Chloride 102 mmol/L (96-108); Creatinine Clr Calc Pharmacy 46.8; Estimated Glomerular Filt Rate > 60; Lipase 34 U/L (8-78); Magnesium 1.4 mg/dL (1.6-2.6); Potassium 5.1 mmol/L (3.3-5.1); Sodium 137 mmol/L (135-145); Total Protein 7.0 g/dL (6.5-8.0)
[2025-09-14 20:10] VITALS: BP 145/76; PULSE 67; RESP 18; TEMP 36.6; O2SAT 97
--- NOTE | 2025-09-14 23:31 | ECG_ITS ---
Test Reason : HYPOMAGNESEMIA Blood Pressure : */* mmHG Vent. Rate : 60 BPM Atrial Rate : 60 BPM P-R Int : 278 ms QRS Dur : 100 ms QT Int : 432 ms P-R-T Axes : 55 5 183 degrees QTcB Int : 432 ms Atrial-paced rhythm with prolonged AV conduction with Premature atrial complexes Cannot rule out Anterior infarct , age undetermined ST & T wave abnormality, consider inferolateral ischemia Abnormal ECG When compared with ECG of 02-Feb-2025 13:34, Premature atrial complexes are now Present Referred By: Raina Keith Electronically Signed By: JIHAN HAIRSTON MD
--- OUTSIDE RECORDS SUMMARY | 2025-09-14 23:50 | XMS_ITS | Clinical Summary ---
Author Organization [address] [place] [address] Address [address] [place] [address] Phone Care Team Providers Care Vice President Education Name Role Phone Yessenia Simmons MD Primary Care Provider [phone] Allergies No known active allergies Medications lancets [...] Take 1-2 tablets daily as prescribed by [facility]. 180 tablet 3 5 Active [...] PCP. Coronary artery disease 06/09/2006 Overview (06/27/2024): CO 1999 stent LAD 2005 EF 45% Last [...] Description 09/04/2025 1:30 PM EST Ancillary Procedure [facility] - [address] [place] [address] 07/30/2025 9:10 AM EST Office Visit [facility] [address] [place] [address] Adilene Lindsey NP Coronary artery disease due to lipid rich plaque (Primary Dx); Ischemic cardiomyopathy; Sinoatrial node dysfunction (CMS/HCC V24, CMS/HCC V28); Atrial fibrillation, unspecified type (CMS/HCC V24, CMS/HCC V28); Primary hypertension; Hyperlipidemia, unspecified hyperlipidemia type 07/28/2025 6:10 AM EST Ancillary Procedure [facility] [address] [place] [address] 06/29/2025 2:25 PM EDT Ancillary Procedure [facility] [address] [place] [address] 06/19/2025 12:40 PM EDT Ancillary Procedure [facility] [address] [facility] [address] [place] [address] from Last 3 Months Immunizations Immunization Administration [...] Coronary atherosclerosis of unspecified type of vessel, mary's igloo or graft 06/09/2006 DX:Coronary atherosclerosis of unspecified type of vessel, mary's igloo or graft; COMMENT: CO 1998 Alcohol abuse, unspecified 08/19/2006 DX:Al cohol [...] Description 10/10/2025 9:00 AM EST Ancillary Procedure [facility] - [address] [place] [address] 11/20/2025 2:30 PM EST Ancillary Procedure [facility] - [address] [place] [address] Health Maintenance Due Date Last Done Comments [...] 2025 , 08/03/2023, 07/29/2022, Additional history exists COVID-19 Vaccine (6 - Moderna risk 2024- season) 2026 09/04/2025, 06/04/2024, 08/30/2021, Additional history exists DTaP,Tdap,and Td Vaccines (3 [...] this topic Medical Devices Implanted Type Area Perlite Grinder Device Identifier Shelf Expiration Date Model / Serial / Lot Medt-Card Oumou Gutierrez Dr [id number] Implanted:08/20 (Quantity not on file) Cardiac ICD MEDTRONIC - CARDIAC RHYTH-CRDM OUMOU Gutierrez DR [id number] / [id number] / Procedures Procedure Name Priority Date/Time Associated [...] EDT ANNUAL BMP BLOOD TEST Routine 03/10/2024 HM URINE ALBUMIN CREATININE RATIO Routine 05/01/2019 HEMOGLOBIN A1C Routine 09/22/2018 LIPID PANEL Routine 05/09/2018 from Last 3 Months or Most Recently Relevant to Health Maintenance Results * Cardiac device check - Remote- MURJ (09/04/2025 1:27 PM EST) Only the most recent of4 resultswithin the time period is included. Date Time Interrogation Session [id number] CV DEVICE CHECK Type Interrogation Session Remote CV DEVICE CHECK Implantable Pulse Generator Perlite Grinder MDT CV DEVICE CHECK Implantable Pulse Generator Type ICD CV DEVICE CHECK Implantable Pulse Generator Model Filia S [id number] CV DEVICE CHECK Implantable Pulse Generator Serial Number [id number] CV DEVICE CHECK Implantable Pulse Generator Implant Date [id number] CV DEVICE CHECK Battery Remaining Longevity 1.0 CV DEVICE CHECK Battery Voltage 2.810 CV D EVICE CHECK Battery CUSTOMER ACCOUNT EXECUTIVE Trigger 2.727 CV DEVICE CHECK Battery Status Middle of Service CV DEVICE CHECK Capacitor Charge Time 4.564 CV DEVICE CHECK Leonard Statistic RA Percent Paced 97.87 CV DEVICE CHECK Leonard Statistic RV Percent Paced 6.74 CV DEVICE CHECK Atrial Tachy Statistic AT/AF [place] Percent 0.00 CV DEVICE CHECK Lead Channel [...] GEMUSE QTc 434 ms GEMUSE P Wave Sawyer 34 degrees GEMUSE R Sawyer 49 degrees GEMUSE T Sawyer -121 degrees GEMUSE ECG Interpretation Atrial-paced rhythm with prolonged AV conduction with occasional ventricular-pa francesca complexes Confirmed by MD Hendrickson Christopher ([id number]) on 08/02/2025 12:56:47 PM GEMUSE 07/30/2025 9:32 AM EST 08/02/2025 12:56 PM EST Result [facility] Adilene Lindsey DIRECTOR [employer] ECG ORDERABLES Edited Result - Final GEMUSE * Annual BMP Blood Test (03/10/2024) Pathologist [facility] Annual BMP Blood Test abstracted Result [facility] Historical Provider HEALTH MAINTENANCE Final Result * Urine Albumin Creatinine Ratio (05/01/2019) [facility] Urine Albumin Creatinine Ratio abstracted Result [facility] Historical Provider HEALTH MAINTENANCE Final Result * (ABNORMAL) Hemoglobin A1c (09/22/2018) [facility] Hemoglobin A1C 8.2(A) <=6.5 % Blood Venous blood specimen / Unknown Result [facility] Provider LAB BLOOD ORDERABLES Gini l Result * Lipid panel (05/09/2018) [facility] LDL/HDL Ratio 3 0 - 4 Triglycerides 65 0 - 150 mg/dL Cholesterol 146 0 - 200 mg/dL HDL 52 >=40 mg/dL LDL Cholesterol 81 0 - 100 mg/dL Blood Venous blood specimen / Unknown Result [facility] Historical Provider LAB BLOOD ORDERABLES Gini l Result from Last 3 Months or Most Recently Relevant to Health Maintenance Insurance [facility] Care Teams Vice President Education Relationship Specialty Start Date End Date Yessenia Simmons MD [id number] [place] [address] PCP - General Internal Medicine 07/30/25
[2025-09-15 00:31] LABS: INTERNATIONAL NORM RATIO 2.1 (0.9-1.1); Prothrombin Time 25.7 SEC (11.2-13.5)
[2025-09-15] MEDS: iohexoL 350 MG/ML 100 ML INFUS..BTL 85 ML IV (00:31)
[2025-09-15] MEDS: Magnesium Sulfate/H2O 2 GM/50 ML PIGGYBACK IV (00:32)
[2025-09-15 03:20] VITALS: BP 136/78; PULSE 76; RESP 16; TEMP 36.6; O2SAT 95
[2025-09-15 03:27] LABS: Appearance Urine Clear; Glucose Urine UA 100 mg/dL (Negative); PH 6.5 (5.0-9.0); Specific Gravity - Urine >= 1.030 (1.005-1.025)
[2025-09-15 05:20] VITALS: BP 136/78; PULSE 76; RESP 16; TEMP 36.6; O2SAT 95
== END 2025-09-15 05:20 | disposition home or self-care (01) ==
PROVIDERS: Physician Assistant; Student in an Organized Health Care Education/Training Program; Emergency Provider Emergency Medicine; PCP Internal Medicine
DX: K59.00 Constipation, unspecified (principal); I11.0 Hypertensive heart disease with heart failure; I50.9 Heart failure, unspecified; I48.91 Unspecified atrial fibrillation; Z79.01 Long term (current) use of anticoagulants; Z95.1 Presence of aortocoronary bypass graft; Z79.899 Other long term (current) drug therapy
CPT/HCPCS: 36415; 74177; 80048; 80076; 81003; 83690; 83735; 85025; 85610; 93005; 96365; 99284; 99285; J3475; Q9967

== ENCOUNTER → 2025-09-14 23:31 | Outpatient (BNV) | payer MEDICARE, SELFPAY | PROVIDERS: Emergency Provider Emergency Medicine; PCP Internal Medicine; Visit Provider Internal Medicine Cardiovascular Disease | DX: I48.91 Unspecified atrial fibrillation (principal); Z95.0 Presence of cardiac pacemaker | CPT/HCPCS: 93010 ==

== ENCOUNTER → 2025-09-15 | Outpatient (BNV) | payer MEDICARE, SELFPAY | PROVIDERS: Emergency Provider Emergency Medicine; PCP Internal Medicine; Visit Provider Radiology Diagnostic Radiology | DX: D35.02 Benign neoplasm of left adrenal gland (principal) | CPT/HCPCS: 74177 ==

== ENCOUNTER 2025-09-16 10:03 | Emergency (ER) | payer MEDICARE, SELFPAY ==
--- OUTSIDE RECORDS SUMMARY | 2024-03-22 08:00 | XMS_ITS ---
Author Organization [facility] Address [address] [place] [address] Care Team Providers Care Mill Oiler Name Role Phone Ria Bryant MD Primary Care Provider Boyd Roa Jr, Rainer Unavailable REASON FOR VISIT GI BLEED Encounters Encounter Location Date Provider Diagnosis [facility] [place] [address] [place], [place] [phone] 03/22/2024 Rainer Roa Jr Plan Of Treatment No Information Progress Notes * KERMIT BECKHAMODOB: [birth year] (84 yo M)Acc No.[id number]:03/22/2024 EGD and COL/MAC Patient: SOREN JASON Provider: Katalina Roa MD :1940 A ge:83 Y S ex:Male Date:03/22/2024 Address:[address] [place], [place] [phone] Pcp:Ria Bryant MD Subjective: * Chief Complaints: * G I BLEED Billing Information: * Procedure Codes: * The named appointment provid er may or may not be the originator of this progress note, and it is not deemed complete until electronically signed by the appointment provider. Sign off status: Pending * Provider: Katalina Roa MD Date: 0 03/22/2024 Generated for Lisa tyler/Aliya/eTrenesmitting on: 11/17/2024 02:38 PM EST
--- NOTE | ~2025-09-16 | XR_ITS ---
CLINICAL HISTORY: weakness Chest Radiographs, 2 views Comparison: CT/REG/SR - CT ABDOMEN PELVIS W IV CON - 09/15/25 00:22 EST CR/SR - XR CHEST 1V - 02/02/25 13:20 EDT CR/SR - XR CHEST 2 VIEWS - 03/20/24 18:50 EDT CR/SR - XR CHEST 2 VIEWS - 08/06/23 10:59 EST Findings: No cardiomegaly. Status post CABG. Right chest wall cardiac pacemaker/AICD. Normal mediastinal contours. No pneumothorax. Calcified granuloma. No pleural effusion. Dilated loops of small bowel in the upper abdomen measure up to 3.2 cm. No acute fracture. Impression: No acute cardiopulmonary findings. Dilation of the small bowel could be secondary to ileus or obstruction. Dedicated abdominal radiographs or CT may be helpful. This document has been electronically signed by: Sydney Logan MD on 09/16/2025 15:11:41
--- NOTE | ~2025-09-16 | CT_ITS ---
CLINICAL HISTORY: dizziness, unsteadiness CT head without contrast Comparison: 03/25/24 Findings: No acute hemorrhage. No extra-axial fluid collection. Prominence of the ventricles and extra-axial spaces due to atrophy of the brain parenchyma, stable. No hydrocephalus, mass-effect or herniation. Albert-white differentiation is maintained. There is patchy hypoattenuation of the periventricular and deep white matter, which is most likely the sequela of moderate chronic small vessel ischemic disease and is similar to the prior study. No acute orbital pathology. No acute soft tissue abnormality. No fracture. The visualized paranasal sinuses are predominantly clear. The mastoid air cells are clear. Impression: No acute findings. This document has been electronically signed by: Sydney Logan MD on 09/16/2025 17:43:33
[2025-09-16 10:28] VITALS: BP 140/76; PULSE 66; RESP 20; TEMP 36.6; O2SAT 97; BMI 23.1
--- NOTE | 2025-09-16 10:35 | ECG_ITS ---
Test Reason : dizziness Blood Pressure : */* mmHG Vent. Rate : 73 BPM Atrial Rate : 36 BPM P-R Int : 282 ms QRS Dur : 104 ms QT Int : 410 ms P-R-T Axes : * 9 222 degrees QTcB Int : 451 ms Atrial-paced rhythm with prolonged AV conduction with occasional ventricular-paced complexes and with premature ventricular or aberrantly conducted complexes ST & T wave abnormality, consider inferolateral ischemia Abnormal ECG When compared with ECG of 14-Sep-2025 23:53, Electronic ventricular pacemaker has replaced Electronic atrial pacemaker Referred By: Generic ED Physician Electronically Signed By: PATRICIA CARBAJAL
[2025-09-16 11:03] LABS: MANUAL DIFF FLAG NO
[2025-09-16 11:05] LABS: Hematocrit 42.5 % (42.0-52.0); Hemoglobin 14.2 g/dl (14.0-18.0); Imm Gran Abs Auto 0.02 X10*3/uL (0.00-0.03); Imm Gran Pct Auto 0.3 % (0.0-0.4); Lymphocytes Absolute Auto 0.8 X10*3/uL (1.2-4.9); Mean Corpuscular HGB Conc 33.4 g/dl (31.0-36.0); Mean Corpuscular Hemoglobin 30.6 pg (27.0-33.0); Mean Corpuscular Volume 91.6 fL (80.0-98.0); NRBC Abs Auto 0.000 X10*3/uL (0.0-0.012); NRBC Pct Auto 0.0 /100WBC (0.0-0.2); Platelet Count 197 X10*3/uL (160-400); Red Blood Count 4.64 X10*6/uL (4.60-5.80); White Blood Count 7.1 X10*3/uL (4.8-10.8)
[2025-09-16 11:47] LABS: Resp Syncy Virus RNA Qual PCR NEGATIVE (Negative); SARS COV2 PCR INHOUSE NEGATIVE (Negative)
[2025-09-16 11:49] LABS: Troponin-I High Sensitivity 13.0 ng/L (<3.5-35.0)
[2025-09-16 11:51] LABS: Alanine Aminotransferase 29 U/L (0-40); Albumin Level 4.1 g/dL (3.5-5.0); Alkaline Phosphatase 111 U/L (39-117); Anion Gap 16 (12-20); Aspartate Amino Transferase 36 U/L (5-37); Blood Urea Nitrogen 20 mg/dL (9-16); Calcium 9.7 mg/dL (8.4-10.2); Carbon Dioxide 21 mmol/L (22-29); Chloride 102 mmol/L (96-108); Creatinine Clr Calc Pharmacy 38.2; Estimated Glomerular Filt Rate 55; Lipase 18 U/L (8-78); Potassium 5.1 mmol/L (3.3-5.1); Sodium 134 mmol/L (135-145); Total Protein 7.2 g/dL (6.5-8.0)
[2025-09-16 12:58] VITALS: BP 138/76; PULSE 78; RESP 20; TEMP 36.8; O2SAT 97
--- NOTE | 2025-09-16 12:59 | ED.GENADULT ---
HPI - General Adult General Chief complaint: Dizziness Stated complaint: STOMACH PAIN NAUSEA Time Seen by Provider: 09/16/25 14:46 History of Present Illness ED Provider: Perla ALVARADO narrative: The patient is an 84-year-old male with a history of coronary disease with a history of an ischemic cardiomyopathy and coronary artery bypass surgery who also has a an ICD/pacemaker. He has a history of atrial fibrillation in his on anticoagulation. He has been having problems with upper abdominal pains for several days. He came to the emergency room 2 days ago complaining of the same pain. He had a CT scan of the abdomen that suggested constipation but showed no other concerning findings. He has continued to feel somewhat unwell. He has been taking little by mouth. He has been feeling somewhat dizzy. His daughter brought him back to the emergency room for evaluation today. He has not been eating much. There has been no vomiting. He has been passing stool. Related Data Home Medications ?Medication ?Instructions ?Recorded ?Confirmed warfarin 5 mg tablet 5 mg PO DAILY@1800 06/14/23 09/10/25 magnesium oxide 400 mg (241.3 mg 400 mg PO BID 10/22/23 09/10/25 magnesium) tablet carvedilol 12.5 mg tablet 12.5 mg PO BID 03/21/24 09/10/25 furosemide 20 mg tablet 20 mg PO DAILY 03/21/24 09/10/25 sacubitril 24 mg-valsartan 26 mg 1 tab PO BID 04/21/24 09/10/25 tablet (Entresto) lisinopril 10 mg tablet 10 mg PO DAILY 06/30/24 09/10/25 blood sugar diagnostic (FreeStyle #10 ea 02/23/25 09/10/25 Precision Henrique Strips) blood-glucose sensor (FreeStyle #1 ea 02/23/25 09/10/25 Wilian 3 Plus Sensor device) blood-glucose,robotics testing technician,cont #1 ea 02/23/25 09/10/25 (FreeStyle Wilian 3 Martelle) metformin 750 mg tablet,extended 750 mg PO BID 02/23/25 09/10/25 release 24 hr insulin glargine 100 unit/mL (3 8 unit subcut QAM 03/02/25 09/10/25 mL) subcutaneous pen (Basaglar KwfranckPen U-100 Insulin) nitroglycerin 0.4 mg sublingual 0.4 mg sublingual DAILY PRN pt 03/02/25 09/10/25 tablet glipizide 2.5 mg tablet 2.5 mg PO QAM 06/18/25 09/10/25 Previous Rx's ?Medication ?Instructions ?Recorded atorvastatin 40 mg tablet 40 mg PO DAILY #90 tabs 10/16/20 omeprazole 20 mg capsule,delayed 20 mg PO DAILY@0630 30 days #30 03/23/24 release caps lactulose 10 gram/15 mL oral 20 g (30 mL) PO TID 5 days #450 mL 09/15/25 solution famotidine 40 mg tablet 40 mg PO DAILY #30 tabs 09/16/25 Allergies Allergy/AdvReac Type Severity Reaction Status Date / Time isosorbide AdvReac Unknown dizziness Verified 09/16/25 10:32 Review of Systems Review of Systems: Yes all other systems are reviewed and are negative [facility] Past Medical History Medical History History of alcohol abuse Ischemic cardiomyopathy with implantable cardioverter-defibrillator (ICD) Hyperlipidemia HTN (hypertension) Diabetes mellitus CAD (coronary artery disease) Atrial fibrillation Current use of anticoagulant therapy Surgical History H/O heart surgery Family History Family History Unknown No problems noted. Sister Liver cancer Social History Social History Household Members: None Housing: House Housing Other:: KRISTIE HELPS HIM - MARK Do you presently have visiting nurse or other home services: No Alcohol intake: former Patient Tobacco Use Status: Never used Tobacco Smoked in Last 30 Days: No Use of substances other than those prescribed or required for medical reasons: No Advance Directives: Yes Advance Directives on File: Yes Advance Directives Date on File: 08/16/23 Do you have a plan to hurt others: No Plan service: No Current occupational status: retired Current occupation: RETIRED 20 YEARS Current occupational exposures/hazards: No Physical Exam ED Vital Signs: Vital Signs - 24 hr 09/16/25 10:28 09/16/25 12:58 09/16/25 14:52 Temperature 97.9 F 98.2 F 97.7 F Pulse Rate 66 78 63 Respiratory Rate 20 20 16 Blood Pressure 140/76 H 138/76 136/86 Pulse Oximetry 97 97 97 Oxygen Delivery Method Room Air Room Air Room Air 09/16/25 17:13 Temperature Pulse Rate 60 Respiratory Rate 16 Blood Pressure 128/71 Pulse Oximetry 96 Oxygen Delivery Method Room Air BMI result Body Mass Index 23.1 Const Other: The patient is an 84-year-old man who was awake and alert with a normal mental status. He has not appear in overt distress or seem obviously significantly ill. HENMT Other: The face is symmetrical. ?Mucous membranes moist. Eyes Other: Pupils are round equal, conjunctivae are clear, extraocular movements intact General: appearance normal, both eyes and all related structures Neck Neck: Yes normal visual inspection, Yes full ROM and Yes no JVD Resp Effort & Inspection: normal respiratory effort Auscultation: clear to auscultation bilaterally Cardio Rate: regular rate Rhythm: regular rhythm Heart sounds: S1 normal heart sound present and S2 normal heart sound present GI Other: The patient has some mild diffuse upper abdominal tenderness. No focal rebound or guarding. He has a palpable umbilical hernia which he says is chronic. Skin Other: The skin is dry and unremarkable Neuro Other: The patient is awake and alert with a normal mental status. Pupils are round equal, eye movements are intact, the face is symmetrical, speech is clear, he moves his extremities symmetrically. He was able to ambulate fairly steadily. He ambulated unassisted. Extrem Other: No peripheral edema Course Course Course Narrative: Rapid medical examination performed in triage by Kelly White PA-C: Patient is a 84 year old male presenting to the emergency department with weakness and hiccups. Detailed physical exam and review of systems are deferred to the medical sociologist. Labs ordered. Patient placed back in the waiting room pending room availability and results. Medications Administered Discontinued Medications Generic Name Dose Route Start Last Admin Trade Name Freq PRN Reason Stop Dose Admin Famotidine 20 mg 09/16/25 14:58 09/16/25 15:30 Famotidine/Pf 20 Mg/2 Ml Vial IVPUSH 09/16/25 14:59 20 mg ONCE ONE Administration Sodium Chloride 1,000 mls @ 999 mls/hr 09/16/25 15:00 09/16/25 17:12 Ns IV 09/16/25 16:00 Infused .Q1H1M DEMETRIUS Infusion Acetaminophen 1,000 mg in 100 mls @ 400 mls/hr 09/16/25 14:58 09/16/25 16:19 Ofirmev IV 09/16/25 15:12 Infused ONCE ONE Infusion Sodium Chloride 1,000 mls @ 999 mls/hr 09/16/25 17:00 09/16/25 17:13 Ns IV 09/16/25 18:00 999 mls/hr .Q1H1M DEMETRIUS Administration Medical Decision Making Medical Decision Making [facility] Narrative: The patient is an 84-year-old male with a history of chronic congestive heart failure. He has a history of atrial fibrillation and is on anticoagulation. He has a pacer defibrillator. He was seen here 2 days ago for abdominal pain. He had a CT scan that showed a moderate amount of stool throughout the colon. There were also findings of possible mild gastritis. The patient was home by himself yesterday. He lives alone. He has daughters who were very involved in his care but he likes to be on his own. Today he apparently complained of feeling dizzy and having a lot of hiccups and he agreed to returned to the emergency room. He has not had a fever. No vomiting. He has passed stool. When I saw him he did not seem obviously ill although he looks fatigued. He did not seem to have an acute abdomen. His labs show a normal white count and an unremarkable differential but his hemoglobin today is higher than it was 2 days ago. That hemoglobin was higher than his hemoglobin in May. Given the rise in his hemoglobin over the last 2 days from 13.1-14.2 I think the patient is hemoconcentrated. Additionally his metabolic panel shows a rise in his BUN from 17-20 and his creatinine from 1.02-1.25. I think this rise in his hemoglobin and his change in renal function are both consistent with acute dehydration. His EKG shows no acute findings. Troponin is not elevated today. CRP is minimally elevated at 0.94. My overall impression is that the patient does not require another CT scan of his abdomen. He was given IV fluids. He was given oral intake also. He tolerated oral intake. A bladder scan was done that showed a bladder volume of 298 mL. This was a postvoid residual. I think this is probably not a sufficiently large postvoid residual to place a catheter in a patient who lives alone and would find having a catheter very unpleasant. I ambulated the patient after he had received 1.5 L of crystalloid. He seemed to walk around without any difficulty. He seemed stable on his feet. Overall I think the patient may be discharged with a prescription for famotidine for possible gastritis. He should follow up with his PCP. The patient should also follow up with the urology to discuss his incomplete bladder emptying and postvoid residual of 298 mL. Lab Data 09/16/25 10:55 09/16/25 10:55 Labs: Lab Results 09/16/25 Range/Units 10:55 WBC 7.1 (4.8-10.8) X10*3/uL RBC 4.64 (4.60-5.80) X10*6/uL Hgb 14.2 (14.0-18.0) g/dl Hct 42.5 (42.0-52.0) % MCV 91.6 (80.0-98.0) fL MCH 30.6 (27.0-33.0) pg MCHC 33.4 (31.0-36.0) g/dl RDW 12.3 (11.0-16.0) % Plt Count 197 (160-400) X10*3/uL MPV 9.0 L (9.4-12.4) fL Immature Gran % (Auto) 0.3 (0.0-0.4) % Neut % (Auto) 78.5 H (45-73) % Lymph % (Auto) 11.6 L (20-40) % Clark % (Auto) 8.5 (2-11) % Eos % (Auto) 0.7 (0-4) % Baso % (Auto) 0.4 (0-2) % Lymph # (Auto) 0.8 L (1.2-4.9) X10*3/uL Clark # (Auto) 0.6 (0.1-1.2) X10*3/uL Eos # (Auto) 0.1 (0.0-0.4) X10*3/uL Baso # (Auto) 0.0 (0.0-0.2) X10*3/uL Abs Immat Gran (auto) 0.02 (0.00-0.03) X10*3/uL Absolute Neuts (auto) 5.5 (2.0-8.3) x10*3/uL Absolute Nucleated RBC 0.000 (0.0-0.012) X10*3/uL Nucleated RBC % (auto) 0.0 (0.0-0.2) /100WBC Sodium 134 L (135-145) mmol/L Potassium 5.1 (3.3-5.1) mmol/L Chloride 102 (96-108) mmol/L Carbon Dioxide 21 L (22-29) mmol/L Anion Gap 16 (12-20) BUN 20 H (9-16) mg/dL Creatinine 1.25 (0.5-1.4) mg/dL Estim Creat Clear Calc 38.2 Estimated GFR 55 Random Glucose 197 H (60-115) mg/dL Calcium 9.7 (8.4-10.2) mg/dL Total Bilirubin 1.0 (0.0-1.0) mg/dL Direct Bilirubin 0.4 (0.0-0.5) mg/dL AST 36 (5-37) U/L ALT 29 (0-40) U/L Alkaline Phosphatase 111 (39-117) U/L Troponin I High Sens 13.0 (<3.5-35.0) ng/L C-Reactive Protein 0.94 H (< or = 0.50) mg/dL Total Protein 7.2 (6.5-8.0) g/dL Albumin 4.1 (3.5-5.0) g/dL Lipase 18 (8-78) U/L Influenza Type A (PCR) NEGATIVE (Negative) Influenza Type B (PCR) NEGATIVE (Negative) RSV RNA Qual (PCR) NEGATIVE (Negative) SARS-CoV-2 RNA (RT-PCR) NEGATIVE (Negative) Discharge Plan Discharge Clinical Impression: Epigastric pain, Dehydration, Incomplete bladder emptying Patient Disposition: Home, Self-Care Instructions: Gastritis (ED) Additional Instructions: His blood testing suggested that he is dehydrated. Please encourage fluids. I think his abdominal pain is probably coming from an irritation of the lining of his stomach. He may have what we call gastritis. I have sent a prescription for the medication famotidine. This is an acid reducing medication. He should take this once a day. Please make another follow up appointment with his regular doctor to discuss his symptoms further. Also, he is not fully emptying his bladder. He should follow up with the urologist. He may follow up with the urology doctor at [facility] he has seen before or contact the [place] urology office. If he seems significantly worse please return to the emergency department. Prescriptions: New famotidine 40 mg tablet 40 mg PO DAILY Qty: 30 0RF No Action atorvastatin 40 mg tablet 40 mg PO DAILY Qty: 90 3RF carvedilol 12.5 mg tablet 12.5 mg PO BID Rx Instructions: must administer with a meal/food furosemide 20 mg tablet 20 mg PO DAILY omeprazole 20 mg Capsule,Delayed Release(Dr/Ec) 20 mg PO DAILY@0630 30 Days Qty: 30 0RF lactulose 10 gram/15 mL solution 20 g PO TID 5 Days Qty: 450 0RF lisinopril 10 mg tablet 10 mg PO DAILY (DME) FreeStyle Wilian 3 Martelle Misc See Rx Instructions .ROUTE QID Qty: 1 Rx Instructions: As directed (DME) FreeStyle Wilian 3 Plus Sensor Device See Rx Instructions .ROUTE QID Qty: 1 Rx Instructions: As directed (DME) FreeStyle Precision Henrique Strips Strip See Rx Instructions .ROUTE TID Qty: 10 Rx Instructions: As directed metformin 750 mg tablet extended release 24 hr 750 mg PO BID insulin glargine [Basaglar KwikPen U-100 Insulin] 100 unit/mL (3 mL) insulin pen 8 unit subcut QAM warfarin 5 mg tablet 5 mg PO DAILY@1800 Protocol: Dose Management Condition: Wednesday (Week One) Dose/Route: 7.5 mg Instruction: 1.5 x 5 mg tablets Condition: Wednesday Dose/Route: 10 mg Instruction: 2 x 5 mg tablets Condition: Wednesday Dose/Route: 7.5 mg Instruction: 1.5 x 5 mg tablets Condition: Wednesday Dose/Route: 5 mg Instruction: 1 x 5 mg tablet Condition: Dose/Route: 7.5 mg Instruction: 1.5 x 5 mg tablets Condition: Wednesday Dose/Route: 7.5 mg Instruction: 1.5 x 5 mg tablets Condition: Wednesday Dose/Route: 7.5 mg Instruction: 1.5 x 5 mg tablets Condition: Wednesday (Week Two) Dose/Route: 7.5 mg Instruction: 1.5 x 5 mg tablets Condition: Wednesday Dose/Route: 7.5 mg Instruction: 1.5 x 5 mg tablets Condition: Wednesday Dose/Route: 7.5 mg Instruction: 1.5 x 5 mg tablets Condition: Wednesday Dose/Route: 5 mg Instruction: 1 x 5 mg tablet Condition: Dose/Route: 7.5 mg Instruction: 1.5 x 5 mg tablets Condition: Wednesday Dose/Route: 7.5 mg Instruction: 1.5 x 5 mg tablets Condition: Wednesday Dose/Route: 7.5 mg Instruction: 1.5 x 5 mg tablets Protocol Text: Adjustment Start Date: Wednesday09/10/25 INR Value: 1.8 INR Date: 09/10/25 Recheck Date: 09/17/25 Patient Comments: JUST INITIATED WARFARIN 06/11/23 magnesium oxide 400 mg (241.3 mg magnesium) tablet 400 mg PO BID Entresto 24-26 mg tablet 1 tab PO BID nitroglycerin 0.4 mg tablet, sublingual 0.4 mg sublingual DAILY PRN (Reason: pt) glipizide 2.5 mg tablet 2.5 mg PO QAM Referrals: [facility] [Provider Group, Urology] Yessenia Simmons MD [Primary Care Provider, Internal Medicine] Print Language: Unable To Collect
--- OUTSIDE RECORDS SUMMARY | 2025-09-16 14:39 | XMS_ITS | Patient Health Record ---
Author Organization [facility] Address [address] [place] [address] Care Team Providers Care Electrical Prospecting Observer Name Role Phone Annette GUNDERSON, Ria Primary Care Provider Rainer Schaffer Jr Unavailable Reason For Referral No Information Problems Problem Type SNOMED Code ICD Code Onset Dates Problem Status W/U Status Risk Notes Problem Iron deficiency anemia (56752457) Iron deficiency anemia (D50.9) Active confirmed Problem Gastritis (4695358) Gastritis (K29.70) Active confirmed Plan Of Treatment No Information Insurance Providers Payer Name Payer Address Payer Phone Subscriber Number Group Number Insured Name Patient Relationship to Insured Coverage Start Date Coverage End Date MEDICARE OF [place] [address] [place] [address] [phone] [id number] KERMIT BECKHAMO Self - patient is the insured MEDEX ATTN CLAIMS [address] [place] [address] [phone] [id number] CHAPINCITO SOREN Self - patient is the insured
--- OUTSIDE RECORDS SUMMARY | 2025-09-16 14:39 | XMS_ITS | Clinical Summary ---
Author Organization [address] [place] [address] Address [address] [place] [address] Phone Care Team Providers Care Head Of History Name Role Phone Yessenia Simmons MD Primary Care Provider [phone] Allergies No known active allergies Medications lancets [...] Take 1-2 tablets daily as prescribed by [facility]. 180 tablet 3 5 Active [...] PCP. Coronary artery disease 06/09/2006 Overview (06/27/2024): [place] 1999 stent LAD 2005 EF 45% Last [...] Description 09/04/2025 1:30 PM EST Ancillary Procedure [facility] [address] [place] [address] 07/30/2025 9:10 AM EST Office Visit [facility] [address] [place] [address] Adilene Lindsey NP Coronary artery disease due to lipid rich plaque (Primary Dx); Ischemic cardiomyopathy; Sinoatrial node dysfunction (CMS/HCC V24, CMS/HCC V28); Atrial fibrillation, unspecified type (CMS/HCC V24, CMS/HCC V28); Primary hypertension; Hyperlipidemia, unspecified hyperlipidemia type 07/28/2025 6:10 AM EST Ancillary Procedure [facility] [address] [place] [address] 06/29/2025 2:25 PM EDT Ancillary Procedure [facility] [address] [place] [address] 06/19/2025 12:40 PM EDT Ancillary Procedure [facility] [address] [facility] [address] [place] [address] from Last 3 Months Immunizations Immunization Administration [...] Coronary atherosclerosis of unspecified type of vessel, enterprise or graft 06/09/2006 DX:Coronary atherosclerosis of unspecified type of vessel, enterprise or graft; COMMENT: [place] 1998 Alcohol abuse, unspecified 08/19/2006 DX:Al cohol [...] Description 10/10/2025 9:00 AM EST Ancillary Procedure [facility] [address] [place] [address] 11/20/2025 2:30 PM EST Ancillary Procedure [facility] [address] [place] [address] Health Maintenance Due Date Last Done Comments [...] this topic Medical Devices Implanted Type Area Disposal Plant Operator Device Identifier Shelf Expiration Date Model / Serial / Lot Medt-Card Oumou Gutierrez Dr [id number] Implanted:08/20 (Quantity not on file) Cardiac ICD MEDTR[employer]IC - CARDIAC RHYTH-CRDM OUMOU Gutierrez DR [id number] / [id number] / Procedures Procedure Name Priority Date/Time Associated [...] period is included. Date Time Interrogation Session [id number] CV DEVICE CHECK Type Interrogation Session Remote CV DEVICE CHECK Implantable Pulse Generator Disposal Plant Operator MDT CV DEVICE CHECK Implantable Pulse Generator Type ICD CV DEVICE CHECK Implantable Pulse Generator Model Filia S [id number] CV DEVICE CHECK Implantable Pulse Generator Serial Number [id number] CV DEVICE CHECK Implantable Pulse Generator Implant Date [id number] CV DEVICE CHECK Battery Remaining Longevity 1.0 CV DEVICE CHECK Battery Voltage 2.810 CV D EVICE CHECK Battery JEWELRY BENCH MOLDER Trigger 2.727 CV DEVICE CHECK Battery Status Middle of Service CV DEVICE CHECK Capacitor Charge Time 4.564 CV DEVICE CHECK Leonard Statistic RA Percent Paced 97.87 CV DEVICE CHECK Leonard Statistic RV Percent Paced 6.74 CV DEVICE CHECK Atrial Tachy Statistic AT/AF [place] Percent 0.00 CV DEVICE CHECK Lead Channel [...] GEMUSE QTc 434 ms GEMUSE P Wave [place] 34 degrees GEMUSE R [place] 49 degrees GEMUSE T [place] -121 degrees GEMUSE ECG Interpretation Atrial-paced rhythm with prolonged AV conduction with occasional ventricular-pa francesca complexes Confirmed by MD Hendrickson Christopher ([id number]) on 08/02/2025 12:56:47 PM GEMUSE 07/30/2025 9:32 AM EST 08/02/2025 12:56 PM EST Result [facility] Adilene Lindsey SHEET TURNER ECG ORDERABLES Edited Result - Final GEMUSE * Annual BMP Blood Test (03/10/2024) Pathologist [facility] Annual BMP Blood Test abstracted Result [facility] Historical Provider HEALTH MAINTENANCE Final Result * Urine Albumin Creatinine Ratio (05/01/2019) [facility] Urine Albumin Creatinine Ratio abstracted Result [facility] Historical Provider HEALTH MAINTENANCE Final Result * (ABNORMAL) Hemoglobin A1c (09/22/2018) [facility] Hemoglobin A1C 8.2(A) <=6.5 % Blood Venous blood specimen / Unknown Result [facility] Provider LAB BLOOD ORDERABLES Igni l Result * Lipid panel (05/09/2018) [facility] LDL/HDL Ratio 3 0 - 4 Triglycerides 65 0 - 150 mg/dL Cholesterol 146 0 - 200 mg/dL HDL 52 >=40 mg/dL LDL Cholesterol 81 0 - 100 mg/dL Blood Venous blood specimen / Unknown Result [facility] Historical Provider LAB BLOOD ORDERABLES Gini l Result from Last 3 Months or Most Recently Relevant to Health Maintenance Insurance MEDICARE [facility] Care Teams Head Of History Relationship Specialty Start Date End Date Yessenia Simmons MD [id number] [place] [address] PCP - General Internal Medicine 07/30/25
[2025-09-16 14:52] VITALS: BP 136/86; PULSE 63; RESP 16; TEMP 36.5; O2SAT 97
[2025-09-16 17:13] VITALS: BP 128/71; PULSE 60; RESP 16; O2SAT 96
[2025-09-16 18:46] VITALS: BP 128/71; PULSE 60; RESP 16; TEMP 36.3; O2SAT 96
== END 2025-09-16 18:47 | disposition home or self-care (01) ==
PROVIDERS: Emergency Provider Emergency Medicine; PCP Internal Medicine
DX: R10.13 Epigastric pain (principal); E86.0 Dehydration; R33.9 Retention of urine, unspecified; I10 Essential (primary) hypertension; I48.91 Unspecified atrial fibrillation; Z79.01 Long term (current) use of anticoagulants; Z79.899 Other long term (current) drug therapy; Z03.818 Encounter for observation for suspected exposure to other biological agents ruled out
CPT/HCPCS: 70450; 71046; 80048; 80076; 83690; 84484; 85025; 86140; 87637; 93005; 96361; 96374; 96375; 99284; 99285; J0131; J1308

== ENCOUNTER → 2025-09-16 10:35 | Outpatient (BNV) | payer MEDICARE, SELFPAY | PROVIDERS: Emergency Provider Emergency Medicine; PCP Internal Medicine; Visit Provider Internal Medicine | DX: R94.31 Abnormal electrocardiogram [ECG] [EKG] (principal); Z95.0 Presence of cardiac pacemaker | CPT/HCPCS: 93010 ==

== ENCOUNTER → 2025-09-16 13:01 | Outpatient (BNV) | payer MEDICARE, SELFPAY | PROVIDERS: Emergency Provider Emergency Medicine; PCP Internal Medicine; Visit Provider Radiology Diagnostic Radiology | DX: R42 Dizziness and giddiness (principal); R26.81 Unsteadiness on feet; R53.1 Weakness | CPT/HCPCS: 70450; 71046 ==

== ENCOUNTER 2025-09-19 08:26 | Outpatient (AMB) | payer MEDICARE, SELFPAY ==
--- OUTSIDE RECORDS SUMMARY | 2024-03-22 08:00 | XMS_ITS ---
Author Organization [facility] Address [address] [place] [address] Care Team Providers Care Chicken Tender Name Role Phone Ria Bryant MD Primary Care Provider Boyd Roa Jr, Rainer Unavailable [phone] REASON FOR VISIT GI BLEED Encounters Encounter Location Date Provider Diagnosis [facility] [place] [address] [place], [place] [phone] 03/22/2024 Rainer Roa Jr Plan Of Treatment No Information Progress Notes * KERMIT BECKHAMODOB: [birth year] (84 yo M)Acc No.[id number]:03/22/2024 EGD and COL/MAC Patient: SOREN JASON Provider: Katalina Roa MD :1940 A ge:83 Y S ex:Male Date:03/22/2024 Address:[address] [place], [place] [phone] Pcp:Ria Bryant MD Subjective: * Chief Complaints: * G I BLEED Billing Information: * Procedure Codes: * The named appointment provid er may or may not be the originator of this progress note, and it is not deemed complete until electronically signed by the appointment provider. Sign off status: Pending * Provider: Katalina Roa MD Date: 0 03/22/2024 Generated for Lisa tyler/Aliya/Eamonsmitting on: 08:31 AM EST
--- OUTSIDE RECORDS SUMMARY | 2025-09-18 23:59 | XMS_ITS | Continuity of Care Document ---
Author Organization [facility] Address [address] [place] [address]- Care Team Providers Care Notching Machine Operator Name Role Phone Yessenia Simmons MD Primary Care Physician Encounter [facility] Date(s): 09/11/25 - 09/18/25 [facility] [address] [place] [address]- Encounter Diagnosis Uncontrolled diabetes mellitus with hyperglycemia(Discharge Diagnosis) - 09/11/25 Atrial fibrillation(Discharge Diagnosis) - 09/11/25 Ischemic cardiomyopathy(Discharge Diagnosis) - 09/11/25 Hypertension(Discharge Diagnosis) - 09/11/25 Attending Physician: Yessenia Simmons MD Encounter Type: Office Visit Allergies, Adverse Reactions, Alerts No Known Allergies Functional Status Functional Status Assessment Assessment Assessment Component Result Effecti ve Date Unspecifed Functional Status Assessment Difficulty Reading O r Writing Unable to Collect 09/11/25 Difficulty communica ting in usual language No 09/11/25 Do you need any mel tional assistance or accommodations during your visit Unable to Collect 09/11/25 Because of a physica l, mental, or emotional condition, do you have difficulty doing errands alone such as visiting a physician's office or shopping Unable to Collect 09/11/25 Because of a physica l, mental, or emotional condition, do you have serious difficulty concentrating, remembering, or making decisions No 09/11/25 Are you blind, or do you have serious difficulty seeing, even when wearing glasses Yes 09/11/25 Do you have difficul ty dressing or bathing No 09/11/25 Do you have serious difficulty walking or climbing stairs No 09/11/25 Are you deaf, or do you have serious difficulty hearing No 12/23/25 Immunizations Given and Recorded Vaccine Date Status Refusal Reason SARS-CoV-2(COVID-19)mRNA-LNP vac([id number]) 09/04/25 Recorded influenza virus vaccine, inactivated 06/04/24 Casey rded [...] virus vaccine, inactivated 06/19/05 Casey rded SARS-CoV-2(COVID-19)mRNA-LNP vac([id number]) 06/04/24 Recorded tetanus-diphtheria toxoids (Td) 3 04/29/23 Given tetanus-diphtheria toxoids (Td) 09/02/10 Recorded [id number] 12y+ bivalent booster vax 07/29/22 Given SARS-CoV-2 [...] Given 1Result Comment: [facility] [id number] 2Result Comment: Patient tollerated well 3Result Comment: [facility] [id number] Medications Ascriptin Enteric 81 mg, By Mouth, Daily, Refills 0, Tot. Refills 0, 11/16/07 6:08:35 PM EST Start Date: 11/16/07 Status: Ordered Medication Dispense Status: Completed Total Allowed Fills: 1 Fills Dispensed: 0 atorvastatin 40 mg oral tablet 1 tablet, By Mouth, Daily, # 90 tablet, 6 Refills, Maintenance, 06/12/25 9:54:00 AM EDT, [facility], 165, cm, 06/12/25 9:18:00 EDT, Height, 62.7, kg, 06/12/25 9:17:00 EDT, Dry Weight Start Date: 06/12/25 Status: Ordered Medication Dispense Status: Completed Quantity: 90.0 Unit: tablet Total Allowed Fills: 7 Fills Dispensed: 0 Basaglar KwikPen 100 units/mL subcutaneous solution = 5 units, Subcutaneous Injection, Daily at bedtime, 90 day supplies, # 9 mL, 3 Refills, Maintenance, 03/28/25 11:40:00 AM EDT, Solution, [facility], Partial fill upon patient request [...] 9:54:00 AM EDT, Route to Pharmacy Electronically, [facility], Partial fill upon patient request [...] diabetes mellitus with hyperglycemia; FreeStyle Wilian 3 [place] See Instructions, # 1 each, Maintenance, to [...] Stop, 02/26/25 9:46:00 AM EDT, Chew Tablet, [facility], Partial fill upon patient request [...] 06/12/25 9:54:00 AMEDT, Route to Pharmacy Electronically, [facility], 165, cm, 06/12/25 9:18:00 EDT, Height, 62.7, kg, 06/12/25 9:17:00 EDT, Dry Weight Start Date: 06/12/25 Status: Ordered Medication Dispense Status: Completed Quantity: 90.0 Unit: tablet Total Allowed Fills: 7 Fills Dispensed: 0 magnesium oxide 400 mg oral tablet 1 tablet, By Mouth, 2 times a day, # 60 tablet, 0 Refills, Maintenance, 08/13/25 8:47:00 AM EST, [facility], 165, cm, 06/12/25 10:08:00 EDT, Height, [...] Maintenance, 06/12/25 9:54:00 AM EDT, ER Tablet, [facility], Partial fill upon patient request [...] Maintenance, 11/03/19 4:02:00 PM EST, Tablet, [id number], 166, cm, 11/03/19 15:28:00 EST, [...] Allowed Fills: 6 Fills Dispensed: 0 Pen Ripley, 30 G x 8 mm BD Ultra [...] Uncontrolled diabetes mellitus with hyperglycemia Discharge Diagnosis 09/11/25 Atrial fibrillation Discharge Diagnosis 09/11/25 Ischemic cardiomyopathy Discharge Diagnosis 09/11/25 Hypertension Discharge Diagnosis 09/11/25 Vital Signs Most recent to oldest [Reference Range]: 1 2 3 Height 165 cm (09/11/25 9:53 AM) 165 cm (09/11/25 9:25 AM) 165 cm (09/11/25 9:22 AM) Weight 63.0 kg (09/11/25 9:22 AM) Oxygen Saturation [94-100 %] 98 % (09/11/25 9:22 AM) Pulse Rate [55-90 bpm] 77 bpm (09/11/25 9:22 AM) Body Mass Index [18.5-24.99 kg/m2] 23.14 kg/m2 (09/11/25 9:22 AM) Blood Pressure [90-138/55-84 mm Hg] 138/80mm Hg (09/11/25 9:53 AM) 165/90mm Hg *H* (09/11/25 9:25 AM) 170/103mm Hg *H* (09/11/25 9:22 AM) Mode of Delivery (Oxygen) Room air (09/11/25 9:22 AM) Blood pressure sites Arm, right (09/11/25 9:25 AM) Arm, right (09/11/25 9:22 AM) Dry Weight 63.0 kg (09/11/25 9:22 AM) Weight Obtained Via Standing scale (09/11/25 9:22 AM) Dry Weight Obtained Via Standing scale (09/11/25 9:22 AM) Social History Social History Type Response Smoking Status Never smoker entered on: 02/12/16 Sexual Orientation Self described orien tation: ; Straight or heterosexual Sex Sex Representation Male (finding) Note * Josee George: PERFORM Event Display: Patient Education/Instruction Authored Date: Ambulatory Adult Visit Summary [facility] [address] [place] [id number] Name: SOREN BECKHAM : 1940?? Visit: 09/11/2025 09:07?? Ambulatory Visit Instructions ?? Your Care Team Primary Care Provider Yessenia Simmons MD? This Visit Provider Yessenia Simmons MD Your Diagnosis Uncontrolled diabetes mellitus with hyperglycemia Vitals Signs Pulse Rate: 77 bpm Height: 165 cm Systolic Blood Pressure: 138 mm Hg Weight: 63 kg Diastolic Blood Pressure: 80 mm Hg Body Mass Index: 23.14 kg/m2 Oxygen Saturation: 98 % Body surface area: 1.7 What to do next Scheduled Follow-Up Appointments Wednesday2025 9:20 AM EDT ?? Type: Return With: Yessenia Simmons MD Where: [facility] [address] [place] [address]- Status: Pending Future Orders Lipid Panel - Routine, Once, 09/29/24 9:32:00 EST, Within 3 Days, [facility], Blood?? CBC w/ Differential - Routine, Once, 09/29/24 [...] 9:34:00 EST, Within 3 Days, [facility], Blood?? Comprehensive Metabolic Panel - Routine, Once, 12/28/24 9:39:00 EDT, Within 3 Days, [facility], Blood?? CBC w/ Differential - Routine, Once, 12/28/24 9:39:00 EDT, Within 3 Days, [facility], Blood?? Hemoglobin A1C (Monitoring) - Routine, Once, 12/28/24 9:39:00 EDT, Within 3 Days, [facility], Blood?? Lipid Panel - Routine, Once, 12/28/24 9:40:00 EDT, Within 3 Days, [facility], Blood?? Medications The list below reflects the information in our records and provided by you today along with any changes made during this visit. Please continue your medications until treatment is completed or stopped by your provider. If this is different from the information you have or there are other questions,please contact the prescribing provider. What How Much When Why Instructions Unchanged Aspirin (Ascriptin Enteric) 81 Milligram Oral Daily Unchanged Atorvastatin (atorvastatin 40 mg oral tablet) 1 tab(s) Oral Daily Ordering Physician: Yessenia Simmons MD Unchanged Carvedilol (carvedilol 12.5 mg oral tablet) 1 tab(s) Oral Twice a day Ordering Physician: Yessenia Simmons MD Unchanged Durable Medical Equipment (FreeStyle Wilian 3 Plus Sensors) See instructions Uncontrolled diabetes mellitus with hyperglycemia Special Instructions: change every 15 days Ordering Physician: Raza GUNDERSON, Carter ?? Unchanged Durable Medical Equipment (FreeStyle Wilian 3 [place]) See instructions Special Instructions: to be used with freestyle reader to check bloog glucose daily in the am fasted and before meals 3 times a day Ordering Physician: Yessenia Simmons MD ?? Unchanged Durable Medical Equipment (One Touch Ultra Test Strips) See instructions Special Instructions: use with one touch ultra2 meter check sugars 1-2 times daily dx- E11.65 duration - 90 days/ ?? 1refill Ordering Physician: Sunny Trevino NP ?? Unchanged Durable Medical Equipment (One Touch Ultra Test Strips) See instructions Duration: 30 Days Special Instructions: to use to check blood glucose fasting in the AM and before meals 3 times days Ordering Physician: Yessenia Simmons MD ?? Unchanged Durable Medical Equipment (Pen Ripley, 30 G x 8 mm BD Ultra Fine II) See instructions Duration: 30 Days Special Instructions: use as directed for Type 2 Diabetes Mellitus to be used daily with basaglar 10 units Ordering Physician: Yessenia Simmons MD ?? Unchanged Durable Medical Equipment (Test Strips) See instructions Altered metabolism due to diabetes Special Instructions: freestyle KELLY test strips to check glucose 3 times a day before meals Ordering Physician: Yessenia Simmons MD ?? Unchanged Glucose (glucose 4 gm oral tablet, chewable) 4 tab(s) Chew Once as needed for for low blood sugar Ordering Physician: Yessenia Simmons MD Unchanged Insulin Glargine (Basaglar KwikPen 100 units/ mL subcutaneous solution) 5 unit(s) Subcutaneous Injection Daily at Bedtime Brittle diabetes mellitus Special Instructions: 90 day supplies Ordering Physician: Yessenia Simmons MD ?? Unchanged Lisinopril (lisinopril 10 mg oral tablet) 1 tab(s) Oral Daily Ordering Physician: Yessenia Simmons MD Unchanged Magnesium Oxide (magnesium oxide 400 mg oral tablet) 1 tab(s) Oral Twice a day Ordering Physician: Yessenia Simmons MD Unchanged Metformin (metFORMIN 750 mg oral tablet, extended release) 1 tab(s) Oral Twice a day Uncontrolled diabetes mellitus with hyperglycemia Ordering Physician: Yessenia Simmons MD Unchanged Nitroglycerin (Nitrostat 0.4 mg sublingual tablet) 1 tab(s) Sublingual Every 5 minutes as needed for Chest Pain Duration: 30 Days Ordering Physician: Aida Lopez NP Test Performed Below is a partial list of the tests performed during your Visit. You may have had other tests and procedures not included in this list. Please discuss all test results with your provider. POC HBA1C ([facility]) Lab Test Results Below is a partial list of the most recent Laboratory test results done during your Visit. You may have had other tests and procedures not included in this list. Please discuss all test results with your provider. Test Name Test Result Date/Time POC HBA1C ([facility]) 10.0 % 09/11/2025 09:38 EST Medications and Immunizations Administered Medications Given [...] are strongly encouraged to quit. Please call [facility] at [phone] or [phone] ([phone]) or log in to [email or web address] for referrals to smoking cessation programs. ?? The National Suicide Prevention Hotline is available 12/04 if you or someone you know needs to find a reason to keep living. By calling 5-064-909-phorus (2339) you'll be connected to a skilled, trained counselor at a crisis center in your area. [facility] [employer] Portal You can view and manage your care through the patient portal or by using a health care asif of your choosing. [employer] is a website that allows you to securely view your medical information including your hospital discharge summary, office visit summaries, medications and follow-up visits. You can also request appointments, renew medications, and request access to your medical information using a health care asif of your choosing, or just ask a question. You can enroll at [email or web address] or register during your next office visit. [facility], in keeping with [facility] guidance, no longer requires face masks [...] primary care provider, you may find a [facility] provider by calling [facility] at [phone]. Patient Care team information Care Team Personnel Name: Barbi Rios RN Position: [facility] RN Member Role: Primary Care Nurse Name: Shantal Garcia RN Position: S RN Member Role: Primary Care Nurse Name: Lisha Cardenas RN Position: S RN Member Role: Primary Care Nurse Name: Aster Ellison RN Position: S RN Member Role: Primary Care Nurse Name: Yesy Hylotn RN Position: [facility] RN Member Role: Primary Care Nurse Name: Yessenia Simmons MD Position: [facility] Physician - Primary Care Member Role: PCP Address: [address] [place] [address] Adult & Pediatric Medicine [address] Telecom: Care Team Related Persons Name: MARK WELLINGTON Name: FANY CASE Insurance Providers Guarantor name: SOREN LOVEA [facility] Information #: 1 Payer: MEDICARE B Payer Identifier: Member Number: [id number] Group Number: Subscriber Identifier: [id number] Relationship to Subscriber: self Coverage Type: NA Coverage Verification Date: NA Telecom: NA Address: [facility] Information #: 2 Payer: MEDEX SECONDARY ONLY Payer Identifier: NA Member Number: [id number] Group Number: Subscriber Identifier: [id number] Relationship to Subscriber: self Coverage Type: Medicare Other Coverage Verification Date: Telecom: Address:
--- OUTSIDE RECORDS SUMMARY | 2025-09-19 08:31 | XMS_ITS | Patient Health Record ---
Author Organization [facility] Address [address] [place] [address] Care Team Providers Care Surgery Tech Name Role Phone Annette GUNDERSON, Ria Primary Care Provider Rainer Schaffer Jr Unavailable [phone] Reason For Referral No Information Problems Problem Type SNOMED Code ICD Code Onset Dates Problem Status W/U Status Risk Notes Problem Iron deficiency anemia (54931005) Iron deficiency anemia (D50.9) Active confirmed Problem Gastritis (7893647) Gastritis (K29.70) Active confirmed Plan Of Treatment No Information Insurance Providers Payer Name Payer Address Payer Phone Subscriber Number Group Number Insured Name Patient Relationship to Insured Coverage Start Date Coverage End Date MEDICARE OF [place] [address] [place] [address] [id number] KERMIT BECKHAMO Self - patient is the insured MEDEX ATTN CLAIMS [address] [place] [address] [id number] CHAPINCITO SOREN Self - patient is the insured
--- OUTSIDE RECORDS SUMMARY | 2025-09-19 08:31 | XMS_ITS | Clinical Summary ---
Author Organization [address] [place] [address] Address [address] [place] [address] Phone Care Team Providers Care Public Relations Assistant Name Role Phone Yessenia Simmons MD Primary Care Provider [phone] Allergies No known active allergies Medications lancets [...] Take 1-2 tablets daily as prescribed by [facility]. 180 tablet 3 5 Active [...] PCP. Coronary artery disease 06/09/2006 Overview (06/27/2024): CA 1999 stent LAD 2005 EF 45% Last [...] Description 09/04/2025 1:30 PM EST Ancillary Procedure [facility] [address] [place] [address] 07/30/2025 9:10 AM EST Office Visit [facility] [address] [place] [address] Adilene Lindsey NP Coronary artery disease due to lipid rich plaque (Primary Dx); Ischemic cardiomyopathy; Sinoatrial node dysfunction (CMS/HCC V24, CMS/HCC V28); Atrial fibrillation, unspecified type (CMS/HCC V24, CMS/HCC V28); Primary hypertension; Hyperlipidemia, unspecified hyperlipidemia type 07/28/2025 6:10 AM EST Ancillary Procedure [facility] [address] [place] [address] 06/29/2025 2:25 PM EDT Ancillary Procedure [facility] [address] [place] [address] 06/19/2025 12:40 PM EDT Ancillary Procedure [facility] [address] [facility] [address] [place] [address] from Last 3 Months Immunizations Immunization Administration [...] type of vessel, clover[place] or graft; COMMENT: CA 1998 Alcohol abuse, unspecified 08/19/2006 DX:Al cohol [...] Description 10/10/2025 9:00 AM EST Ancillary Procedure [facility] [address] [place] [address] 11/20/2025 2:30 PM EST Ancillary Procedure [facility] [address] [place] [address] Health Maintenance Due Date Last Done Comments [...] this topic Medical Devices Implanted Type Area Wind Turbine Installer Device Identifier Shelf Expiration Date Model / Serial / Lot Medt-Card Oumou Gutierrez Dr [id number] Implanted:08/20 (Quantity not on file) Cardiac ICD MEDTRONIC - CARDIAC RHYTH-CRDM OUMOU Gutierrez DR [id number] / [id number] / Procedures Procedure Name Priority Date/Time Associated [...] period is included. Date Time Interrogation Session [id number] CV DEVICE CHECK Type Interrogation Session Remote CV DEVICE CHECK Implantable Pulse Generator Wind Turbine Installer MDT CV DEVICE CHECK Implantable Pulse Generator Type ICD CV DEVICE CHECK Implantable Pulse Generator Model Filia S [id number] CV DEVICE CHECK Implantable Pulse Generator Serial Number [id number] CV DEVICE CHECK Implantable Pulse Generator Implant Date [id number] CV DEVICE CHECK Battery Remaining Longevity 1.0 CV DEVICE CHECK Battery Voltage 2.810 CV D EVICE CHECK Battery RAISE DRILL OPERATOR Trigger 2.727 CV DEVICE CHECK Battery Status Middle of Service CV DEVICE CHECK Capacitor Charge Time 4.564 CV DEVICE CHECK Leonard Statistic RA Percent Paced 97.87 CV DEVICE CHECK Leonard Statistic RV Percent Paced 6.74 CV DEVICE CHECK Atrial Tachy Statistic AT/AF [place] Percent 0.00 CV DEVICE CHECK Lead Channel [...] GEMUSE QTc 434 ms GEMUSE P Wave Thicket 34 degrees GEMUSE R Thicket 49 degrees GEMUSE T Thicket -121 degrees GEMUSE ECG Interpretation Atrial-paced rhythm with prolonged AV conduction with occasional ventricular-pa francesca complexes Confirmed by MD Hendrickson Christopher ([id number]) on 08/02/2025 12:56:47 PM GEMUSE 07/30/2025 9:32 AM EST 08/02/2025 12:56 PM EST Result [facility] Adilene Lindsey PUSHER OPERATOR ECG ORDERABLES Edited Result - Final GEMUSE * Annual BMP Blood Test (03/10/2024) Pathologist [facility] Annual BMP Blood Test abstracted Result [facility] Historical Provider HEALTH MAINTENANCE Final Result * Urine Albumin Creatinine Ratio (05/01/2019) [facility] Urine Albumin Creatinine Ratio abstracted Result [facility] Historical Provider HEALTH MAINTENANCE Final Result * (ABNORMAL) Hemoglobin A1c (09/22/2018) [facility] Hemoglobin A1C 8.2(A) <=6.5 % Blood Venous blood specimen / Unknown Result [facility] Provider LAB BLOOD ORDERABLES Gini l Result * Lipid panel (05/09/2018) [facility] LDL/HDL Ratio 3 0 - 4 Triglycerides 65 0 - 150 mg/dL Cholesterol 146 0 - 200 mg/dL HDL 52 >=40 mg/dL LDL Cholesterol 81 0 - 100 mg/dL Blood Venous blood specimen / Unknown Result [facility] Historical Provider LAB BLOOD ORDERABLES Gini l Result from Last 3 Months or Most Recently Relevant to Health Maintenance Insurance MEDICARE [facility] Care Teams Public Relations Assistant Relationship Specialty Start Date End Date Yessenia Simmons MD [address] [place] [address] PCP - General Internal Medicine 07/30/25
[2025-09-19 08:35] LABS: Prothrombin Time Whole Bld POC 20.6 sec (11.1-13.5); ~PT, ~INR - Anti Coag Clinic 1.7 (0.9-1.1)
--- NOTE | 2025-09-19 08:35 | MHC.OFFVISCO ---
Intake Intake Visit Reasons: Anticoagulation Allergies isosorbide Adverse Reaction (Unknown, Verified 09/19/25 08:30) dizziness Medication List - Last Reconciled 09/19/25 by Sonya Tobar RN atorvastatin 40 mg PO DAILY blood sugar diagnostic (FreeStyle Precision Henrique Strips) As directed blood-glucose sensor (FreeStyle Wilian 3 Plus Sensor device) As directed blood-glucose,packing line operator,cont (FreeStyle Wilian 3 [place]) As directed carvedilol 12.5 mg PO BID famotidine 40 mg PO DAILY furosemide 20 mg PO DAILY glipizide 2.5 mg PO QAM insulin glargine (Basaglar KwikPen U-100 Insulin) 8 units subcut QAM lactulose 20 grams (30 mL) PO TID 5 days lisinopril 10 mg PO DAILY magnesium oxide 400 mg PO BID metformin ER 750 mg PO BID nitroglycerin 0.4 mg sublingual DAILY PRN omeprazole 20 mg PO DAILY@0630 30 days sacubitril-valsartan 24-26 mg (Entresto) 1 tab PO BID warfarin 5 mg See Protocol PO DAILY@1800 Nursing Note INR 1.7-?? out of therapeutic range 2-3 Medications and supplements reviewed Patient status: pt to acs with naveen. she states pt in hosp 09/16/25 for stomach pain, dehydration pt may have missed a dose of warfarin per daughter Medications or supplements: famatodine- this can raise inr per micromedex, pt states not taking Diet: appetite poor Denies any signs and symptoms of bleeding or clotting or unusual bruising Bleeding, bruising, clotting discussed Nutritional guidance given: no greens x 2-3 days Dose: increase dose today to 7.5mg then cont reg 7.5mg x 6, 5mg x 1 F/U INR Date : pt req mon 09/24/25 Patient verbalizing understanding of instructions given. Anti-Coag Initial Assessment Social Hx Patient Tobacco Use Status: Never used Tobacco alcohol intake: former Alcohol intake frequency: does not drink Cardiovascular Hx: HTN, [place], [place], Arrhythmias, Cardiomyopathy and Other Endocrine Hx: Diabetes Blood Disorder Hx: Hyperlipidemia Hx: Kidney Disease Cancer HX: No Psych. 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
== END 2025-09-19 08:42 | disposition home or self-care (01) ==
LOC: HO.ACS 08:26
PROVIDERS: PCP Internal Medicine; Visit Provider Internal Medicine Medical Oncology
DX: Z79.01 Long term (current) use of anticoagulants (principal)

== ENCOUNTER → 2025-09-19 08:26 | Outpatient (BNVA) | payer MEDICARE, SELFPAY | PROVIDERS: PCP Internal Medicine; Visit Provider Internal Medicine Medical Oncology | DX: I48.0 Paroxysmal atrial fibrillation (principal); Z51.81 Encounter for therapeutic drug level monitoring; Z79.01 Long term (current) use of anticoagulants | CPT/HCPCS: 85610; 99211 ==